=== PATIENT | male | born 1985 | race African-American/Black ===

== ENCOUNTER 2017-11-11 16:48 | Emergency (ER) | payer OTHER, SELFPAY ==
--- NOTE | 2017-11-11 19:04 | ER ---
Nurse's Notes [facility] Name: Holden Morris Age: 32 yrs Sex: Male : 1985 Arrival Date: 11/11/2017 Time: 16:52 Bed Waiting Private MD: Saad Dove T Diagnosis: Presentation: 11/11 17:07 Presenting complaint: Patient states: Migraine headache and chest pain for 1 week. aj Transition of care: patient was not received from another setting of care. Onset of symptoms was November 06, 2017. Care prior to arrival: None. 17:07 Method Of Arrival: Ambulatory 17:07 Acuity: STONE 3 aj Triage Assessment: 17:08 General: Appears in no apparent distress. comfortable, Behavior is calm, cooperative, aj appropriate for age. Pain: Complains of pain in face and chest. Neuro: Level of Consciousness is awake, alert, obeys commands, Oriented to person, place, time, situation, Appropriate for age. Neuro: Reports headache. Cardiovascular: Reports chest pain, Capillary refill < 3 seconds in bilateral fingers Patient's skin is warm and dry. Respiratory: Airway is patent Respiratory effort is even, unlabored, Respiratory pattern is regular, symmetrical. Derm: Skin is intact, is healthy with good turgor, Skin is pink, warm \T\ dry. normal. Historical: - Allergies: 17:08 No Known Allergies; aj - Home Meds: 17:08 Valium Oral [Active]; aj - PMHx: 17:08 Anxiety; Migraines; aj - PSHx: 17:08 laryngoscopy; aj - Immunization history:: Adult Immunizations up to date. - Social history:: Smoking status: Patient/guardian denies using tobacco. Assessment: 19:02 Reassessment: Patient eloped from [employer] telling registration he was leaving because of aj the wait time. Vital Signs: 17:08 BP 170 / 91; Pulse 86; Resp 16; Temp 97.7; Pulse Ox 98% on R/A; Weight 97.52 kg; Height aj 5 ft. 9 in. (175.26 cm); Pain 9/10; 17:08 Body Mass Index 31.75 (97.52 kg, 175.26 cm) ED Course: 16:52 Patient arrived in ED. rg4 16:52 Saad Dove MD is Private Physician. rg4 17:08 Triage completed. lala 17:08 Arm band placed on left wrist. Patient placed in waiting room, Patient notified of wait aj time. EKG completed in triage. Results shown to MD. 19:03 Aidan Carranza MD is Attending Physician. lala Administered Medications: No medications were administered Outcome: 19:02 Eloped from waiting room, before seeing physician Time discovered patient gone: November 11 2018 at 19:03 19:03 Patient left the ED. aj Signatures: Mia Sandoval, RN RN Desire Lima rg4
[2017-11-11 19:14] VITALS: BP 170/91; TEMP 97.7; O2SAT 98
--- NOTE | 2017-11-13 15:26 | EKG ---
Test Date: 2017-11-11 Test Time: 17:14:17 Waist Pleater: PIOTR MEASUREMENT RESULTS: Intervals: Rate: 89 MA: 136 QRSD: 82 QT: 348 QTc: 423 [place]: P: 59 MA: 136 QRS: 39 T: 26 INTERPRETIVE STATEMENTS: Normal sinus rhythm Normal ECG Compared to ECG 08/03/2016 17:22:37 ST (T wave) deviation no longer present Electronically Signed On 11-13-17 15:24:46 CDT by Christopher Pacheco
== END 2017-11-11 19:03 | disposition left against medical advice (07) ==
LOC: ER 16:48
DX: Z53.21 Procedure and treatment not carried out due to patient leaving prior to being seen by health care provider (principal)
CPT/HCPCS: 93005; 99281

== ENCOUNTER 2018-01-05 17:42 | Emergency (ER) | payer SELFPAY ==
--- NOTE | 2018-01-05 18:43 | EKG ---
Test Date: 2018-01-05 Test Time: 17:52:47 Advertising Display Rotator: XANDER MEASUREMENT RESULTS: Intervals: Rate: 74 MI: 138 QRSD: 80 QT: 348 QTc: 386 [place]: P: 40 MI: 138 QRS: 13 T: 13 INTERPRETIVE STATEMENTS: Normal sinus rhythm Normal ECG Compared to ECG 11/11/2017 17:14:17 No significant changes Electronically Signed On 01-05-18 18:42:48 CDT by Abner Howard
[2018-01-05] MEDS ORDERED: KETOROLAC 30 MG/ML INJ ONE (19:55)
[2018-01-05 20:03] LABS: Absolute Lymphocytes (CBC) 3.1 K/uL (0.7-4.9); Absolute Monocytes 0.6 K/uL (0.1-1.3); Absolute Neutrophil 4.3 K/uL (1.8-8.0); Basophils % 0.4 % (0-1.3); Hematocrit 41.5 % (39.6-49.0); Lymphocytes % 37.8 % (15.3-44.8); MCH 23.9 pg (27.0-35.0); MCV 74.4 fL (80-100); MPV 8.8 fL (7.6-11.3); Monocytes % 7.7 % (3.3-12.3); RBC Red Blood Cell Count 5.57 M/uL (4.33-5.43)
--- NOTE | 2018-01-05 20:09 | RAD REPORT ---
EXAM DESCRIPTION: RAD - Chest Single View - 01/05/2018 6:55 pm CLINICAL HISTORY: Chest pain COMPARISON: September 2016 TECHNIQUE: AP portable chest image was obtained 1842 hours . FINDINGS: Lungs are clear. Heart and vasculature are normal. No measurable pleural effusion and no p neumothorax. No gross bony abnormality seen. No acute aortic findings suspected. IMPRESSION: No acute cardiopulmonary process. No significant interval change.
[2018-01-05 20:25] LABS: ALT/SGPT 47 U/L (12-78); AST/SGOT 31 U/L (15-37); Albumin 3.8 g/dL (3.4-5.0); Alkaline Phosphatase 78 U/L (45-117); BUN Blood Urea Nitrogen 13 mg/dL (7-18); Bicarbonate 29 mmol/L (21-32); Bilirubin Direct < 0.1 mg/dL (0-0.2); Bilirubin Total 0.2 mg/dL (0.2-1.0); Glucose Level 81 mg/dL (74-106); Magnesium 2.1 mg/dL (1.8-2.4); NT PRO-BNP 8 pg/mL (<125); Protein, Total 8.4 g/dL (6.4-8.2); Sodium Level 139 mmol/L (136-145)
[2018-01-05] MEDS ORDERED: FENTANYL CITR 100 MCG/2 ML ONE (20:27)
--- NOTE | 2018-01-05 20:37 | ER ---
Nurse's Notes [facility] Name: Holden Morris Age: 33 yrs Sex: Male : 1985 Arrival Date: 01/05/2018 Time: 17:45 Bed 24 Private MD: Saad Dove T Diagnosis: Other chest pain Presentation: 01/05 17:45 Presenting complaint: Patient states: CP and numbness that started this morning while sg driving to work, reports this happened before and was hospitalized for it. Transition of care: patient was not received from another setting of care. Onset of symptoms was January 05, 2018. Risk Assessment: Do you want to hurt yourself or someone else? Patient reports no desire to harm self or others. Initial Sepsis Screen: Does the patient meet any 2 criteria? No. Patient's initial sepsis screen is negative. Does the patient have a suspected source of infection? No. Patient's initial sepsis screen is negative. Care prior to arrival: None. 17:45 Method Of Arrival: Ambulatory sg 17:45 Acuity: STONE 3 sg Historical: - Allergies: 17:47 No Known Allergies; sg - Home Meds: 17:47 Valium Oral [Active]; sg - PMHx: 17:47 Anxiety; Migraines; sg - PSHx: 17:47 laryngoscopy; sg - Immunization history:: Adult Immunizations up to date. - Social history:: Smoking status: Patient/guardian denies using tobacco. - Ebola Screening: : Patient negative for fever greater than or equal to 101.5 degrees Fahrenheit, and additional compatible Ebola Virus Disease symptoms Patient denies exposure to infectious person Patient denies travel to an Ebola-affected area in the 21 days before illness onset No symptoms or risks identified at this time. Screenin:24 Abuse screen: Denies threats or abuse. Nutritional screening: No deficits noted. mb3 Tuberculosis screening: No symptoms or risk factors identified. Fall Risk None identified. Assessment: 18:22 General: Appears in no apparent distress. comfortable, Behavior is calm, cooperative, mb3 appropriate for age. Pain: Complains of pain in chest Pain does not radiate. Pain currently is 8 out of 10 on a pain scale. at worst was 10 out of 10 on a pain scale. Pain began gradually, 4 hours ago. Neuro: No deficits noted. Cardiovascular: Reports chest pain, Denies nausea, Heart tones present Capillary refill < 3 seconds Patient's skin is warm and dry. Pulses are all present. Rhythm is sinus rhythm. Respiratory: Airway is patent Respiratory effort is even, unlabored, Respiratory pattern is regular, symmetrical, Breath sounds are clear bilaterally. GI: No deficits noted. No signs and/or symptoms were reported involving the gastrointestinal system. Vital Signs: 17:46 Pulse 79; Resp 17 S; Temp 98.4; Pulse Ox 99% on R/A; Weight 111.13 kg; Height 5 ft. 8 sg in. (172.72 cm); Pain 6/10; 17:48 BP 158 / 90; sg 19:00 BP 129 / 84; Pulse 71; Resp 20; Pulse Ox 94% on R/A; mb3 20:56 BP 128 / 93; Pulse 66; Resp 18; Pulse Ox 96% on R/A; mb3 17:46 Body Mass Index 37.25 (111.13 kg, 172.72 cm) ED Course: 17:45 Patient arrived in ED. sg 17:45 Saad Dove MD is Private Physician. sg 17:46 Triage completed. sg 17:48 Angel Good, RN is Primary Nurse. mb3 17:48 Arm band placed on. sg 18:11 Lars Elena PA is PHCP. jr8 18:11 Jose Ramon Tinajero MD is Attending Physician. jr8 18:21 Inserted saline lock: 22 gauge in right forearm, using aseptic technique. Blood mb3 collected. 18:22 Patient maintains SpO2 saturation greater than 95% on room air. mb3 18:25 Patient has correct armband on for positive identification. Placed in gown. Bed in low mb3 position. Call light in reach. Side rails up X 1. supply assistant on. Pulse ox on. NIBP on. 18:25 EKG done, by process maintenance technician. reviewed by Jose Ramon Tinajero MD. sm3 18:48 XRAY Chest (1 view) Sent. mb3 18:51 X-ray completed. Portable x-ray completed in exam room. Patient tolerated procedure kp1 well. 18:53 XRAY Chest (1 view) In Process Unspecified. EDMS 20:37 Saad Dove MD is Referral Physician. jr8 20:51 No provider procedures requiring assistance completed. IV discontinued, intact, mb3 bleeding controlled, No redness/swelling at site. Pressure dressing applied. Administered Medications: 19:54 Drug: TORadol 30 mg Route: IVP; Site: right forearm; mb3 20:43 Follow up: Response: No adverse reaction mb3 20:26 Drug: fentaNYL (PF) 50 mcg Route: IVP; Site: right forearm; mb3 20:43 Follow up: Response: No adverse reaction mb3 Outcome: 20:37 Discharge ordered by . terry 20:52 Discharged to home ambulatory, with family. mb3 20:52 Condition: stable 20:52 Discharge instructions given to patient, family, Instructed on discharge instructions, follow up and referral plans. medication usage, Demonstrated understanding of instructions, follow-up care, medications, Prescriptions given X 1. 20:55 Patient left the ED. mb3 Signatures: Dispatcher [employer] EDMS Holden Segovia, RN RN Lars Arango PA PA jr8 Ginger Plata kp1 Angel Good RN RN mb3 Chapis Cintron 3
--- NOTE | 2018-01-05 20:38 | EDPHYS ---
Physician Documentation [facility] Name: Holden Morris Age: 33 yrs Sex: Male : 1985 Arrival Date: 01/05/2018 Time: 17:45 Bed 24 Private MD: Saad Dove T ED Physician Jose Ramon Tinajero HPI: 01/05 19:46 This 33 yrs old Black Male presents to ER via Ambulatory with complaints of Chest Pain, jr8 Numbness Of Arm. 19:46 The patient or guardian reports chest pain that is located primarily in the anterior jr8 chest wall, left. The pain radiates to the left arm. Associated signs and symptoms: The patient has no apparent associated signs or symptoms. The chest pain is described as sharp, stabbing. Duration: The patient or guardian reports multiple episodes, that are intermittent, that wax and wane. Modifying factors: The symptoms are alleviated by nothing. the symptoms are aggravated by breathing, deep breath, movement, palpation of area. Severity of pain: At its worst the pain was moderate in the emergency department the pain is unchanged. The patient has not experienced similar symptoms in the past. The patient has not recently seen a physician. Historical: - Allergies: 17:47 No Known Allergies; sg - Home Meds: 17:47 Valium Oral [Active]; sg - PMHx: 17:47 Anxiety; Migraines; sg - PSHx: 17:47 laryngoscopy; sg - Immunization history:: Adult Immunizations up to date. - Social history:: Smoking status: Patient/guardian denies using tobacco. - Ebola Screening: : Patient negative for fever greater than or equal to 101.5 degrees Fahrenheit, and additional compatible Ebola Virus Disease symptoms Patient denies exposure to infectious person Patient denies travel to an Ebola-affected area in the 21 days before illness onset No symptoms or risks identified at this time. ROS: 19:46 Eyes: Negative for injury, pain, redness, and discharge, ENT: Negative for injury, jr8 pain, and discharge, Neck: Negative for injury, pain, and swelling, Respiratory: Negative for shortness of breath, cough, wheezing, and pleuritic chest pain, Abdomen/GI: Negative for abdominal pain, nausea, vomiting, diarrhea, and constipation, Back: Negative for injury and pain, MS/Extremity: Negative for injury and deformity, Skin: Negative for injury, rash, and discoloration, Neuro: Negative for headache, weakness, numbness, tingling, and seizure. 19:46 Cardiovascular: Positive for chest pain, Negative for edema, orthopnea, palpitations, paroxysmal nocturnal dyspnea. Exam: 19:46 Eyes: Pupils equal round and reactive to light, extra-ocular motions intact. Lids and jr8 lashes normal. Conjunctiva and sclera are non-icteric and not injected. Cornea within normal limits. Periorbital areas with no swelling, redness, or edema. ENT: Nares patent. No nasal discharge, no septal abnormalities noted. Tympanic membranes are normal and external auditory canals are clear. Oropharynx with no redness, swelling, or masses, exudates, or evidence of obstruction, uvula midline. Mucous membranes moist. Neck: Trachea midline, no thyromegaly or masses palpated, and no cervical lymphadenopathy. Supple, full range of motion without nuchal rigidity, or vertebral point tenderness. No Meningismus. Cardiovascular: Regular rate and rhythm with a normal S1 and S2. No gallops, murmurs, or rubs. Normal PMI, no JVD. No pulse deficits. Respiratory: Lungs have equal breath sounds bilaterally, clear to auscultation and percussion. No rales, rhonchi or wheezes noted. No increased work of breathing, no retractions or nasal flaring. Abdomen/GI: Soft, non-tender, with normal bowel sounds. No distension or tympany. No guarding or rebound. No evidence of tenderness throughout. Back: No spinal tenderness. No costovertebral tenderness. Full range of motion. Skin: Warm, dry with normal turgor. Normal color with no rashes, no lesions, and no evidence of cellulitis. MS/ Extremity: Pulses equal, no cyanosis. Neurovascular intact. Full, normal range of motion. Neuro: Awake and alert, GCS 15, oriented to person, place, time, and situation. Cranial nerves II-XII grossly intact. Motor strength 5/5 in all extremities. Sensory grossly intact. Cerebellar exam normal. Normal gait. 19:46 Chest/axilla: Inspection: normal, Palpation: tenderness, that is moderate, of the left clavicle, anterior aspect of left upper chest and mid-sternal area. Vital Signs: 17:46 Pulse 79; Resp 17 S; Temp 98.4; Pulse Ox 99% on R/A; Weight 111.13 kg; Height 5 ft. 8 sg in. (172.72 cm); Pain 6/10; 17:48 BP 158 / 90; sg 19:00 BP 129 / 84; Pulse 71; Resp 20; Pulse Ox 94% on R/A; mb3 20:56 BP 128 / 93; Pulse 66; Resp 18; Pulse Ox 96% on R/A; mb3 17:46 Body Mass Index 37.25 (111.13 kg, 172.72 cm) sg MDM: 18:11 Patient medically screened. 8 20:30 Data reviewed: vital signs, nurses notes, lab test result(s), EKG, radiologic studies, jr8 plain films, and as a result, I will discharge patient. Data interpreted: Pulse oximetry: on room air is 99 %. Interpretation: normal. Counseling: I had a detailed discussion with the patient and/or guardian regarding: the historical points, exam findings, and any diagnostic results supporting the discharge/admit diagnosis, lab results, radiology results, the need for outpatient follow up, a family practitioner, to return to the emergency department if symptoms worsen or persist or if there are any questions or concerns that arise at home. ED course: No acute or concerning findings in labs, imaging, or EKG. Pain reproducible. Likely strain. Instructions given to f/u with PCP . 01/05 18:26 Order name: Basic Metabolic Panel; Complete Time: 20:30 01/05 18:26 Order name: CBC with Diff; Complete Time: 20:30 01/05 18:26 Order name: LFT's; Complete Time: 20:30 01/05 18:26 Order name: Magnesium; Complete Time: 20:30 01/05 18:26 Order name: NT PRO-BNP; Complete Time: 20:30 01/05 18:26 Order name: PT-INR; Complete Time: 20:47 01/05 18:26 Order name: Troponin (emerg Dept Use Only); Complete Time: 20:30 01/05 18:26 Order name: XRAY Chest (1 view); Complete Time: 20:09 01/05 18:26 Order name: EKG; Complete Time: 18:26 01/05 18:26 Order name: Cardiac monitoring; Complete Time: 18:48 01/05 18:26 Order name: EKG - Nurse/Tech; Complete Time: 18:48 01/05 18:26 Order name: IV Saline Lock; Complete Time: 18:48 01/05 18:26 Order name: Labs collected and sent; Complete Time: 18:48 01/05 18:26 Order name: O2 Per Protocol; Complete Time: 18:48 01/05 18:26 Order name: O2 Sat Monitoring; Complete Time: 18:49 Administered Medications: 19:54 Drug: TORadol 30 mg Route: IVP; Site: right forearm; mb3 20:43 Follow up: Response: No adverse reaction mb3 20:26 Drug: fentaNYL (PF) 50 mcg Route: IVP; Site: right forearm; mb3 20:43 Follow up: Response: No adverse reaction mb3 Disposition: 01/06 07:11 Co-signature as Attending Physician, Jose Ramon Tinajero MD. rn Disposition: 01/05/18 20:37 Discharged to Home. Impression: Other chest pain. - Condition is Stable. - Discharge Instructions: Chest Wall Pain. - Prescriptions for Cyclobenzaprine 10 mg Oral Tablet - take 1 tablet by ORAL route every 8 hours As needed; 30 tablet. - Medication Reconciliation Form, Thank You Letter, Antibiotic Education, Prescription Opioid Use, Work release form form. - Follow up: Saad Dove MD; When: 2 - 3 days; Reason: Recheck today's complaints, Continuance of care, Re-evaluation by your physician. - Problem is new. - Symptoms have improved. Signatures: Dispatcher [employer] EDHolden Turcios RN RN Jose Ramon Wright MD MD rn Roszak, Josh, PA PA jr8 Angel Good, RN RN mb3 Corrections: (The following items were deleted from the chart) 01/05 20:55 20:37 01/05/2018 20:37 Discharged to Home. Impression: Other chest pain. Condition is mb3 Stable. Forms are Medication Reconciliation Form, Thank You Letter, Antibiotic Education, Prescription Opioid Use. Follow up: Saad Dove; When: 2 - 3 days; Reason: Recheck today's complaints, Continuance of care, Re-evaluation by your physician. Problem is new. Symptoms have improved. jr8
[2018-01-05 20:40] LABS: Protime INR 1.08
[2018-01-05 21:00] VITALS: BP 158/90; TEMP 98.4; O2SAT 99
== END 2018-01-05 20:55 | disposition home or self-care (01) ==
LOC: ER 17:42
DX: R07.89 Other chest pain (principal)
CPT/HCPCS: 36415; 71045; 80048; 80076; 83735; 83880; 84484; 85025; 85610; 93005; 96374; 96375; 99285; J3010

== ENCOUNTER 2018-01-14 18:55 | Emergency (ER) | payer SELFPAY ==
[2018-01-14] MEDS ORDERED: ONDANSETRON 4 MG/2 ML VIAL ONE (19:17)
[2018-01-14] MEDS ORDERED: MORPHINE 4 MG/ML SYR ONE (19:17)
[2018-01-14] MEDS ORDERED: FENTANYL CITR 100 MCG/2 ML ONE (19:49)
[2018-01-14] MEDS ORDERED: NA CHLORIDE 0.9% 1,000 ML ONE (19:49)
[2018-01-14] MEDS ORDERED: TETANUS & DIPHTHERIA TOX,ADULT 0.5 ML VIAL ONE ×2 (19:49→19:50)
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
[2018-01-14] MEDS ORDERED: TETRACAINE HCL 0.5% 2ML OPTH ONE (20:21)
[2018-01-14] MEDS ORDERED: FLUORESCEIN SODIUM 0.6 MG/WRAP ONE (20:21)
[2018-01-14 20:23] LABS: Absolute Lymphocytes (CBC) 2.4 K/uL (0.7-4.9); Absolute Monocytes 0.9 K/uL (0.1-1.3); Absolute Neutrophil 7.4 K/uL (1.8-8.0); Basophils % 0.4 % (0-1.3); Eosinophils % 1.3 % (0-4.4); Lymphocytes % 21.9 % (15.3-44.8); MCV 74.3 fL (80-100); MPV 8.1 fL (7.6-11.3); Monocytes % 7.9 % (3.3-12.3); RBC Red Blood Cell Count 5.25 M/uL (4.33-5.43)
[2018-01-14 20:28] LABS: Protime INR 1.01
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
[2018-01-14 20:33] LABS: BUN Blood Urea Nitrogen 19 mg/dL (7-18); Bicarbonate 27 mmol/L (21-32); Glucose Level 101 mg/dL (74-106); Potassium 3.9 mmol/L (3.5-5.1); Sodium Level 140 mmol/L (136-145)
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
[2018-01-14] MEDS ORDERED: CYCLOBENZAPRINE 10 MG TAB ONE (21:51)
[2018-01-14] MEDS ORDERED: HYDROCODONE/APAP 10/325 TAB ONE (21:52)
[2018-01-14] MEDS ORDERED: KETOROLAC 30 MG/ML INJ ONE (21:52)
[2018-01-14 23:06] VITALS: TEMP 98.3
[2018-01-14 23:08] VITALS: O2SAT 100
[2018-01-14 23:11] VITALS: BP 144/79
--- NOTE | 2018-01-15 09:30 | EKG ---
Test Date: 2018-01-14 Test Time: 20:57:34 Agency Appointments Supervisor: ANKITA MEASUREMENT RESULTS: Intervals: Rate: 101 ME: 140 QRSD: 80 QT: 326 QTc: 422 [place]: P: 49 ME: 140 QRS: 8 T: 15 INTERPRETIVE STATEMENTS: Sinus tachycardia Otherwise normal ECG Compared to ECG 01/05/2018 17:52:47 Sinus rhythm no longer present Electronically Signed On 01-15-18 09:27:30 CDT by Christopher Pacheco
== END 2018-01-14 23:02 | disposition home or self-care (01) ==
LOC: ER 18:55
DX: S05.02XA Injury of conjunctiva and corneal abrasion without foreign body, left eye, initial encounter (principal); M25.512 Pain in left shoulder; V49.40XA Driver injured in collision with unspecified motor vehicles in traffic accident, initial encounter; Z88.0 Allergy status to penicillin
CPT/HCPCS: 36415; 70450; 71045; 71260; 72125; 72170; 74177; 80048; 85025; 85610; 85730; 86850; 86900; 86901; 90714; 93005; 96374; 96375; 99285; J2405; J3010; J7030; Q9967

== ENCOUNTER 2018-08-24 11:00 | Emergency (ER) | payer SELFPAY ==
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
--- NOTE | 2018-08-24 12:52 | ER ---
Nurse's Notes [facility] Name: Holden Morris Age: 33 yrs Sex: Male : 1985 Arrival Date: 08/24/2018 Time: 11:02 Bed 13 Private MD: Saad Dove T Diagnosis: Other chest pain-Chest Wall pain Presentation: 08/24 11:06 Presenting complaint: Patient states: pt c/o left sided chest pain that started last iw night, feels like squeezing and pins and needles, also feels like his left hand has intermittent swelling and has pain to his whole left arm when he tries to raise it up, denies injury. Transition of care: patient was not received from another setting of care. Onset of symptoms was August 23, 2018. Risk Assessment: Do you want to hurt yourself or someone else? Patient reports no desire to harm self or others. Initial Sepsis Screen: Does the patient meet any 2 criteria? No. Patient's initial sepsis screen is negative. Does the patient have a suspected source of infection? No. Patient's initial sepsis screen is negative. Care prior to arrival: None. 11:06 Method Of Arrival: Ambulatory iw 11:06 Acuity: STONE 3 iw Triage Assessment: 11:34 General: Appears in no apparent distress. Behavior is calm, cooperative. pc1 Cardiovascular: Denies diaphoresis, fatigue, lightheadedness, nausea, palpitations, shortness of breath, vomiting, Capillary refill < 3 seconds Patient's skin is warm and dry. Historical: - Allergies: 11:09 PENICILLINS; iw - Home Meds: 11:09 None [Active]; iw - PMHx: 11:09 Anxiety; GERD; Migraines; iw - PSHx: 11:09 laryngoscopy; iw - Immunization history:: Adult Immunizations not up to date. - Social history:: Smoking status: Patient/guardian denies using tobacco. - Ebola Screening: : Patient negative for fever greater than or equal to 101.5 degrees Fahrenheit, and additional compatible Ebola Virus Disease symptoms Patient denies exposure to infectious person Patient denies travel to an Ebola-affected area in the 21 days before illness onset No symptoms or risks identified at this time. Screenin:36 Abuse screen: Denies threats or abuse. Denies injuries from another. Nutritional pc1 screening: No deficits noted. Tuberculosis screening: No symptoms or risk factors identified. Fall Risk None identified. Assessment: 11:30 Pain: Pain radiates to left arm pt states his left side swells off and on for a long ls4 time now and no doctors can figure out why Pain began years ago. 11:35 General: Appears in no apparent distress. Neuro: No deficits noted. Cardiovascular: pc1 Reports chest pain, Denies diaphoresis, fatigue, lightheadedness, nausea, palpitations, shortness of breath, syncope, vomiting. Respiratory: Airway is patent Respiratory effort is even, unlabored. GI: No deficits noted. : No deficits noted. 12:30 Reassessment: Patient appears in no apparent distress at this time. Patient and/or ls4 family updated on plan of care and expected duration. Pain level reassessed. Patient is alert, oriented x 3, equal unlabored respirations, skin warm/dry/pink. Vital Signs: 11:09 BP 148 / 81; Pulse 88; Resp 16; Temp 98.7; Pulse Ox 98% on R/A; Weight 97.52 kg; Height iw 5 ft. 7 in. (170.18 cm); Pain 9/10; 11:09 Body Mass Index 33.67 (97.52 kg, 170.18 cm) iw ED Course: 11:02 Patient arrived in ED. mr 11:03 Saad Dove MD is Private Physician. mr 11:08 Triage completed. iw 11:09 Arm band placed on. iw 11:27 Lars Elena PA is PHCP. jr8 11:27 Ko Guillaume MD is Attending Physician. jr8 11:28 Fley Villegas, NICOL is Primary Nurse. ls4 11:28 EKG done, by health information technologist. reviewed by Ko Guillaume MD. at1 11:36 Patient has correct armband on for positive identification. Bed in low position. Call pc1 light in reach. Side rails up X 1. environmental monitoring specialist on. Pulse ox on. NIBP on. 11:37 No provider procedures requiring assistance completed. Patient maintains SpO2 pc1 saturation greater than 95% on room air. 12:14 Influenza Screen (a \T\ B) Sent. 5 12:14 Flu and/or RSV swab sent to lab. 5 12:51 Saad Dove MD is Referral Physician. jr8 13:24 Patient did not have IV access during this emergency room visit. ls4 13:26 Chest Single View XRAY Sent. ls4 Administered Medications: 12:52 CANCELLED (Physician Discretion): TORadol 30 mg IVP once jr8 12:58 Drug: TORadol 60 mg Route: IM; Site: right deltoid; ls4 13:20 Follow up: Response: No adverse reaction; Marked relief of symptoms ls4 Outcome: 12:51 Discharge ordered by . jr8 13:22 Patient left the ED. ls4 13:24 Discharged to home ambulatory, with family. ls4 13:24 Condition: good 13:24 Discharge instructions given to patient, family, Instructed on discharge instructions, follow up and referral plans. medication usage, Demonstrated understanding of instructions, follow-up care, medications, Prescriptions given X 1. Signatures: Anika Han Irene, RN RN Lars Beckwith PA PA jr8 Mia Mares, xray tech EKG Tat1 Valeria Oliver 5 Fely Villegas RN RN ls4 Anthony John pc1
--- NOTE | 2018-08-24 12:53 | EDPHYS ---
Physician Documentation [facility] Name: Holden Morris Age: 33 yrs Sex: Male : 1985 Arrival Date: 08/24/2018 Time: 11:02 Bed 13 Private MD: Saad Dove T ED Physician Ko Guillaume HPI: 08/24 11:40 This 33 yrs old Black Male presents to ER via Ambulatory with complaints of Chest Pain. jr8 11:41 The patient or guardian reports chest pain that is located primarily in the anterior jr8 chest wall, left. The pain does not radiate. Associated signs and symptoms: The patient has no apparent associated signs or symptoms. The chest pain is described as a pressure, squeezing. Duration: The patient or guardian reports a single episode, that is still ongoing, and unchanged. Modifying factors: The symptoms are alleviated by nothing. the symptoms are aggravated by cough, movement. Severity of pain: At its worst the pain was moderate. The patient has experienced similar episodes in the past, a few times. The patient has not recently seen a physician. Chest pain started last night. Recent cough with intermittent fevers. Historical: - Allergies: 11:09 PENICILLINS; iw - Home Meds: 11:09 None [Active]; iw - PMHx: 11:09 Anxiety; GERD; Migraines; iw - PSHx: 11:09 laryngoscopy; iw - Immunization history:: Adult Immunizations not up to date. - Social history:: Smoking status: Patient/guardian denies using tobacco. - Ebola Screening: : Patient negative for fever greater than or equal to 101.5 degrees Fahrenheit, and additional compatible Ebola Virus Disease symptoms Patient denies exposure to infectious person Patient denies travel to an Ebola-affected area in the 21 days before illness onset No symptoms or risks identified at this time. ROS: 11:41 Eyes: Negative for injury, pain, redness, and discharge, ENT: Negative for injury, jr8 pain, and discharge, Neck: Negative for injury, pain, and swelling, Abdomen/GI: Negative for abdominal pain, nausea, vomiting, diarrhea, and constipation, Back: Negative for injury and pain, MS/Extremity: Negative for injury and deformity, Skin: Negative for injury, rash, and discoloration, Neuro: Negative for headache, weakness, numbness, tingling, and seizure. 11:41 Cardiovascular: Positive for chest pain, with cough, with movement. 11:41 Respiratory: Positive for cough, Negative for dyspnea on exertion, shortness of breath, sputum production, wheezing. Exam: 11:41 Eyes: Pupils equal round and reactive to light, extra-ocular motions intact. Lids and jr8 lashes normal. Conjunctiva and sclera are non-icteric and not injected. Cornea within normal limits. Periorbital areas with no swelling, redness, or edema. ENT: Nares patent. No nasal discharge, no septal abnormalities noted. Tympanic membranes are normal and external auditory canals are clear. Oropharynx with no redness, swelling, or masses, exudates, or evidence of obstruction, uvula midline. Mucous membranes moist. Neck: Trachea midline, no thyromegaly or masses palpated, and no cervical lymphadenopathy. Supple, full range of motion without nuchal rigidity, or vertebral point tenderness. No Meningismus. Cardiovascular: Regular rate and rhythm with a normal S1 and S2. No gallops, murmurs, or rubs. Normal PMI, no JVD. No pulse deficits. Respiratory: Lungs have equal breath sounds bilaterally, clear to auscultation and percussion. No rales, rhonchi or wheezes noted. No increased work of breathing, no retractions or nasal flaring. Abdomen/GI: Soft, non-tender, with normal bowel sounds. No distension or tympany. No guarding or rebound. No evidence of tenderness throughout. Back: No spinal tenderness. No costovertebral tenderness. Full range of motion. Skin: Warm, dry with normal turgor. Normal color with no rashes, no lesions, and no evidence of cellulitis. MS/ Extremity: Pulses equal, no cyanosis. Neurovascular intact. Full, normal range of motion. Neuro: Awake and alert, GCS 15, oriented to person, place, time, and situation. Cranial nerves II-XII grossly intact. Motor strength 5/5 in all extremities. Sensory grossly intact. Cerebellar exam normal. Normal gait. 11:41 Chest/axilla: Inspection: normal, Palpation: tenderness, that is moderate, of the anterior aspect of left upper chest, that totally reproduces the patient's complaints, Axilla: are normal. Vital Signs: 11:09 BP 148 / 81; Pulse 88; Resp 16; Temp 98.7; Pulse Ox 98% on R/A; Weight 97.52 kg; Height iw 5 ft. 7 in. (170.18 cm); Pain 9/10; 11:09 Body Mass Index 33.67 (97.52 kg, 170.18 cm) iw MDM: 11:27 Patient medically screened. 8 12:50 Differential diagnosis: abnormal EKG, acute myocardial infarction, acute pericarditis, jr8 anxiety, chest wall pain, cholecystitis, Cholelithiasis costochondritis, esophagitis, gastritis, pleurisy, pneumonia, pneumothorax, pulmonary embolus, thoracic aortic disection, unstable angina. Data reviewed: vital signs, nurses notes, lab test result(s), EKG, radiologic studies, plain films, and as a result, I will discharge patient. Data interpreted: Pulse oximetry: on room air is 98 %. Interpretation: normal. Counseling: I had a detailed discussion with the patient and/or guardian regarding: the historical points, exam findings, and any diagnostic results supporting the discharge/admit diagnosis, lab results, radiology results, the need for further work-up and treatment in the hospital. 08/24 11:44 Order name: Influenza Screen (a \T\ B); Complete Time: 12:39 jr8 08/24 11:44 Order name: Chest Single View XRAY jr8 08/24 11:44 Order name: EKG; Complete Time: 11:45 jr8 08/24 12:32 Order name: RAD; Complete Time: 12:39 EDMS 08/24 11:44 Order name: EKG - Nurse/Tech; Complete Time: 12:29 Administered Medications: 12:52 CANCELLED (Physician Discretion): TORadol 30 mg IVP once jr8 12:58 Drug: TORadol 60 mg Route: IM; Site: right deltoid; ls4 13:20 Follow up: Response: No adverse reaction; Marked relief of symptoms ls4 Disposition: 08/24/18 12:51 Discharged to Home. Impression: Other chest pain - Chest Wall pain. - Condition is Stable. - Discharge Instructions: Chest Wall Pain. - Prescriptions for Ibuprofen 800 mg Oral Tablet - take 1 tablet by ORAL route every 12 hours As needed take with food; 20 tablet. - Medication Reconciliation Form, Thank You Letter, Antibiotic Education, Prescription Opioid Use form. - Family Work Release (08/24/18 13:32). eb - Follow up: Saad Dove MD; When: 2 - 3 days; Reason: Recheck today's complaints, Continuance of care, Re-evaluation by your physician. - Problem is new. - Symptoms have improved. Signatures: Dispatcher [employer] Keshia Seaman, RN RN iw Lars Elena PA PA jr8 Fely Villegas RN RN ls4 Monisha Magallanes eb Corrections: (The following items were deleted from the chart) 12:52 12:50 TORadol 30 mg IVP once ordered. jr8 jr8 13:22 12:51 08/24/2018 12:51 Discharged to Home. Impression: Other chest pain - Chest Wall ls4 pain. Condition is Stable. Forms are Medication Reconciliation Form, Thank You Letter, Antibiotic Education, Prescription Opioid Use. Follow up: Saad Dove; When: 2 - 3 days; Reason: Recheck today's complaints, Continuance of care, Re-evaluation by your physician. Problem is new. Symptoms have improved. jr8
[2018-08-24] MEDS ORDERED: KETOROLAC 30 MG/ML INJ ONE (13:04)
[2018-08-24 13:27] VITALS: BP 148/81; TEMP 98.7; O2SAT 98
--- NOTE | 2018-08-24 21:38 | EKG ---
Test Date: 2018-08-24 Test Time: 11:24:13 Zipper Lining Folder: PIOTR MEASUREMENT RESULTS: Intervals: Rate: 71 OK: 136 QRSD: 80 QT: 344 QTc: 373 [place]: P: 69 OK: 136 QRS: 62 T: 50 INTERPRETIVE STATEMENTS: Normal sinus rhythm Normal ECG Compared to ECG 01/14/2018 20:57:34 Sinus tachycardia no longer present Electronically Signed On 08-24-18 21:36:22 COMPUTER REPAIR INSTRUCTOR by Abner Howard
== END 2018-08-24 13:22 | disposition home or self-care (01) ==
LOC: ER 11:00
DX: R07.89 Other chest pain (principal); Z88.0 Allergy status to penicillin
CPT/HCPCS: 71045; 87804; 93005; 96372; 99285

== ENCOUNTER 2019-03-17 22:59 | Emergency (ER) | payer SELFPAY ==
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
[2019-03-18 01:29] VITALS: TEMP 98.6
[2019-03-18 01:31] VITALS: BP 141/75; O2SAT 98
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
--- NOTE | 2019-03-19 11:36 | EKG ---
Test Date: 2019-03-17 Test Time: 23:14:59 Water Main Inspector: ANKITA MEASUREMENT RESULTS: Intervals: Rate: 85 MO: 140 QRSD: 78 QT: 350 QTc: 416 [place]: P: 46 MO: 140 QRS: 10 T: 22 INTERPRETIVE STATEMENTS: Normal sinus rhythm Normal ECG Compared to ECG 08/24/2018 11:24:13 No significant changes Electronically Signed On 03-19-19 11:31:36 CDT by Christopher Pacheco
== END 2019-03-18 00:25 | disposition home or self-care (01) ==
LOC: ER 22:59
DX: R07.9 Chest pain, unspecified (principal); Z88.0 Allergy status to penicillin
CPT/HCPCS: 71046; 93005; 99284

== ENCOUNTER 2019-04-06 10:05 | Emergency (ER) | payer SELFPAY ==
[2019-04-06 10:50] LABS: Absolute Lymphocytes (CBC) 2.4 K/uL (0.7-4.9); Basophils % 0.6 % (0-1.3); Hematocrit 35.2 % (39.6-49.0); Lymphocytes % 35.9 % (15.3-44.8); MPV 8.1 fL (7.6-11.3); RBC Red Blood Cell Count 4.71 M/uL (4.33-5.43)
[2019-04-06 10:51] LABS: Protime INR 1.09
[2019-04-06] MEDS ORDERED: ASPIRIN 81 MG CHEWABLE TABLET ONE (11:19)
[2019-04-06] MEDS ORDERED: MORPHINE 2 MG/ML SYR ONE (11:20)
[2019-04-06] MEDS ORDERED: ONDANSETRON 4 MG/2 ML VIAL ONE (11:20)
[2019-04-06 12:18] LABS: ALT/SGPT 48 U/L (12-78); AST/SGOT 23 U/L (15-37); Albumin 3.5 g/dL (3.4-5.0); Alkaline Phosphatase 67 U/L (45-117); BUN Blood Urea Nitrogen 20 mg/dL (7-18); Bicarbonate 28 mmol/L (21-32); Bilirubin Direct 0.1 mg/dL (0-0.2); Bilirubin Total 0.2 mg/dL (0.2-1.0); Glucose Level 103 mg/dL (74-106); NT PRO-BNP 14 pg/mL (<125); Protein, Total 7.2 g/dL (6.4-8.2); Sodium Level 140 mmol/L (136-145); Troponin (Emerg Dept Use Only) < 0.02 ng/mL (0.0-0.045)
--- NOTE | 2019-04-06 13:05 | EDPHYS ---
Physician Documentation [facility] Name: Holden Morris Age: 34 yrs Sex: Male : 1985 Arrival Date: 04/06/2019 Time: 10:14 Bed 27 Private MD: ED Physician Aidan Carranza HPI: 04/06 11:15 This 34 yrs old Black Male presents to ER via EMS with complaints of Chest Pain. [facility] 11:15 The patient or guardian reports chest pain that is located primarily in the substernal m area. The pain radiates to the left arm. Associated signs and symptoms: Pertinent negatives: abdominal pain, cough, lightheadedness, nausea, shortness of breath. The chest pain is described as sharp. Duration: The patient or guardian reports a single episode, that lasted 3 hour(s). Modifying factors: The symptoms are alleviated by nothing. the symptoms are aggravated by deep breath. Historical: - Allergies: 10:19 PENICILLINS; aj1 - Home Meds: 10:19 None [Active]; aj1 - PMHx: 10:19 Anxiety; GERD; Migraines; Asthma; aj1 - Immunization history:: Flu vaccine is not up to date. - Social history:: Smoking status: Patient/guardian denies using tobacco. - Ebola Screening: : Patient denies travel to an Ebola-affected area in the 21 days before illness onset. ROS: 11:15 Constitutional: Negative for fever, chills, and weight loss, Eyes: Negative for injury, jmm pain, redness, and discharge, ENT: Negative for injury, pain, and discharge, Neck: Negative for injury, pain, and swelling. 11:15 Cardiovascular: Positive for chest pain. 11:15 MS/extremity: Positive for pain. 11:15 All other systems are negative. Exam: 11:15 Constitutional: This is a well developed, well nourished patient who is awake, alert, jmm and in no acute distress. Head/Face: atraumatic. Eyes: EOMI, no conjunctival erythema appreciated ENT: Moist Mucus Membranes Neck: Trachea midline, Supple Chest/axilla: Normal chest wall appearance and motion. 11:15 Cardiovascular: Rate: normal, Rhythm: regular. 11:15 Respiratory: the patient does not display signs of respiratory distress, Respirations: normal, Breath sounds: are clear throughout. 11:15 Abdomen/GI: Inspection: abdomen appears normal, Bowel sounds: normal. 11:15 Musculoskeletal/extremity: ROM: intact in all extremities. 11:15 Skin: Appearance: Color: normal in color. 11:15 Neuro: Orientation: is normal, Mentation: is normal, Memory: is normal. 11:15 Psych: Behavior/mood is pleasant, cooperative. Vital Signs: 10:19 BP 139 / 87; Pulse 96; Resp 17; Temp 98.6; Pulse Ox 98% on R/A; Weight 97.52 kg (R); aj1 Height 5 ft. 10 in. (177.80 cm) (R); Pain 9/10; 11:15 BP 121 / 72; Pulse 78; Resp 18; Pulse Ox 99% on R/A; aj1 10:19 Body Mass Index 30.85 (97.52 kg, 177.80 cm) [facility] MDM: 10:19 Patient medically screened. [facility] 13:03 Data reviewed: vital signs, nurses notes, lab test result(s), EKG, radiologic studies, jmm plain films. ED course: HEART SCORE = 1. PERC SCORE NEGATIVE. PATIENT ADVISED TO FOLLOW UP WITH CARDIO FOR REEVALUATION. PATIENT IS OTHERWISE GIVEN STRICT RETURN PRECAUTIONS. PATIENT UNDERSTOOD AND AGREES WITH THE PLAN OF CARE. . 04/06 10:23 Order name: Basic Metabolic Panel; Complete Time: 12:19 [facility] 04/06 10:23 Order name: CBC with Diff; Complete Time: 11:01 [facility] 04/06 10:23 Order name: LFT's; Complete Time: 12:19 [facility] 04/06 10:23 Order name: Magnesium; Complete Time: 12:19 [facility] 04/06 10:23 Order name: NT PRO-BNP; Complete Time: 12:19 [facility] 04/06 10:23 Order name: PT-INR; Complete Time: 11:01 04/06 10:23 Order name: Troponin (emerg Dept Use Only); Complete Time: 12:19 [facility] 04/06 10:23 Order name: XRAY Chest (1 view) [facility] 04/06 10:23 Order name: EKG; Complete Time: 10:24 [facility] 04/06 10:23 Order name: Cardiac monitoring; Complete Time: 10:23 [facility] 04/06 10:23 Order name: EKG - Nurse/Tech; Complete Time: 10:04/06 10:23 Order name: IV Saline Lock; Complete Time: :04/06 10:23 Order name: Labs collected and sent; Complete Time: 10:40 04/06 10:23 Order name: O2 Per Protocol; Complete Time: :04/06 10:23 Order name: O2 Sat Monitoring; Complete Time: : Administered Medications: 11:31 Drug: Aspirin Chewable Tablet 324 mg Route: PO; aj1 12:30 Follow up: Response: No adverse reaction aj1 11:31 Drug: morphine 2 mg Route: IVP; Site: left antecubital; aj1 12:30 Follow up: Response: No adverse reaction; RASS: Alert and Calm (0) aj 11:31 Drug: Zofran 4 mg Route: IVP; Site: left antecubital; aj1 12:30 Follow up: Response: No adverse reaction aj Disposition: 04/06/19 13:04 Discharged to Home. Impression: Chest pain, unspecified. - Condition is Stable. - Discharge Instructions: Nonspecific Chest Pain. - Medication Reconciliation Form, Thank You Letter, Antibiotic Education, Prescription Opioid Use form. - Follow up: Abner Howard MD; When: 2 - 3 days; Reason: Recheck today's complaints, Continuance of care, Re-evaluation by your physician. Follow up: Christopher Pacheco MD; When: 2 - 3 days; Reason: Recheck today's complaints, Continuance of care, Re-evaluation by your physician. Addendum: 04/08/2019 07:51 Co-signature as Attending Physician, Aidan Carranza MD I agree with the assessment and c amaya plan of care. Signatures: Dispatcher [employer] EDAlee Varela RN RN aj1 Aidan Carranza MD MD cha Mickail, Joel, PA PA jmm Corrections: (The following items were deleted from the chart) 04/06 14:15 13:04 04/06/2019 13:04 Discharged to Home. Impression: Chest pain, unspecified. aj1 Condition is Stable. Forms are Medication Reconciliation Form, Thank You Letter, Antibiotic Education, Prescription Opioid Use. Follow up: Abner Howard; When: 2 - 3 days; Reason: Recheck today's complaints, Continuance of care, Re-evaluation by your physician. Follow up: Christopher Pacheco; When: 2 - 3 days; Reason: Recheck today's complaints, Continuance of care, Re-evaluation by your physician. patrick
--- NOTE | 2019-04-06 13:05 | ER ---
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 Patient reports midsternal chest pain that radiates to the left chest and left shoulder. Reports shortness of breath when the chest pain started that has now resolved. Reports that he was admitted to the hospital 2 years ago for an abnormal EKG, but he never got a diagnosis and has not needed any treatment for it. Transition of care: patient was not received from another setting of care. Onset of symptoms was April 06, 2019 at 08:55. Risk Assessment: Do you want to hurt yourself or someone else? Patient reports no desire to harm self or others. Initial Sepsis Screen: Does the patient meet any 2 criteria? No. Patient's initial sepsis screen is negative. Does the patient have a suspected source of infection? No. Patient's initial sepsis screen is negative. Care prior to arrival: None. 10:14 Method Of Arrival: EMS aj1 10:14 Acuity: STONE 3 aj1 Triage Assessment: 10:19 General: Appears in no apparent distress. comfortable, Behavior is calm, cooperative, aj1 appropriate for age. Pain: Complains of pain in mid-sternal area Pain radiates to anterior aspect of left upper chest and posterior aspect of left shoulder Pain currently is 9 out of 10 on a pain scale. Pain began 1 hour ago. Cardiovascular: Reports chest pain. Historical: - Allergies: 10:19 PENICILLINS; aj1 - Home Meds: 10:19 None [Active]; aj1 - PMHx: 10:19 Anxiety; GERD; Migraines; Asthma; aj1 - Immunization history:: Flu vaccine is not up to date. - Social history:: Smoking status: Patient/guardian denies using tobacco. - Ebola Screening: : Patient denies travel to an Ebola-affected area in the 21 days before illness onset. Screenin:15 Abuse screen: Denies threats or abuse. Denies injuries from another. Nutritional aj1 screening: No deficits noted. Tuberculosis screening: No symptoms or risk factors identified. 14:14 Fall Risk None identified. aj1 Assessment: 10:15 General: Appears in no apparent distress. comfortable, Behavior is calm, cooperative, aj1 appropriate for age. Pain: Complains of pain in mid-sternal area Pain radiates to posterior aspect of left shoulder and anterior aspect of left upper chest Pain currently is 9 out of 10 on a pain scale. Pain began 1 hour ago. Alleviated by nothing. Neuro: Level of Consciousness is awake, alert, obeys commands, Oriented to person, place, time, situation, Speech is normal. Cardiovascular: Reports chest pain, Heart tones S1 S2 present Patient's skin is warm and dry. Rhythm is regular. Respiratory: Reports shortness of breath that has now resolved Airway is patent Respiratory effort is even, unlabored, Respiratory pattern is regular, symmetrical, Breath sounds are clear bilaterally. GI: No signs and/or symptoms were reported involving the gastrointestinal system. : No signs and/or symptoms were reported regarding the genitourinary system. EENT: No signs and/or symptoms were reported regarding the EENT system. Derm: No signs and/or symptoms reported regarding the dermatologic system. Skin is normal. Musculoskeletal: No signs and/or symptoms reported regarding the musculoskeletal system. Circulation, motion, and sensation intact. 11:15 Reassessment: Patient appears in no apparent distress at this time. No changes from aj1 previously documented assessment. Patient and/or family updated on plan of care and expected duration. Pain level reassessed. Patient is alert, oriented x 3, equal unlabored respirations, skin warm/dry/pink. Vital Signs: 10:19 BP 139 / 87; Pulse 96; Resp 17; Temp 98.6; Pulse Ox 98% on R/A; Weight 97.52 kg (R); aj1 Height 5 ft. 10 in. (177.80 cm) (R); Pain 9/10; 11:15 BP 121 / 72; Pulse 78; Resp 18; Pulse Ox 99% on R/A; aj1 10:19 Body Mass Index 30.85 (97.52 kg, 177.80 cm) aj1 ED Course: 10:14 Patient arrived in ED. aj1 10:14 Kolby, Alee, RN is Primary Nurse. aj1 10:15 Manjit Salinas PA is PHCP. jmm 10:15 Aidan Carranza MD is Attending Physician. jmm 10:15 Patient has correct armband on for positive identification. 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 Pulse aj1 ox on. NIBP on. 10:15 No provider procedures requiring assistance completed. Patient maintains SpO2 aj1 saturation greater than 95% on room air. 10:15 Maintain EMS IV. Dressing intact. Good blood return noted. Site clean \T\ dry. Gauge \T\ aj 1 site: 20g Left AC. 10:17 Triage completed. aj1 10:19 Arm band placed on. aj1 12:23 XRAY Chest (1 view) In Process Unspecified. EDMS 13:04 Abner Howard MD is Referral Physician. jmm 13:04 Christopher Pacheco MD is Referral Physician. jmm 14:13 IV discontinued, intact, bleeding controlled, No redness/swelling at site. Pressure aj1 dressing applied. Administered Medications: 11:31 Drug: Aspirin Chewable Tablet 324 mg Route: PO; aj1 12:30 Follow up: Response: No adverse reaction aj1 11:31 Drug: morphine 2 mg Route: IVP; Site: left antecubital; aj1 12:30 Follow up: Response: No adverse reaction; RASS: Alert and Calm (0) aj1 11:31 Drug: Zofran 4 mg Route: IVP; Site: left antecubital; aj1 12:30 Follow up: Response: No adverse reaction aj Outcome: 13:04 Discharge ordered by MD. [facility] 14:14 Discharged to home ambulatory. aj1 14:14 Condition: good 14:14 Discharge instructions given to patient, Instructed on discharge instructions, follow up and referral plans. Demonstrated understanding of instructions, follow-up care. 14:15 Patient left the ED. aj1 Signatures: Dispatcher [employer] EDMS Alee Jarrett RN RN aj1 Manjit Salinas PA PA [facility]
[2019-04-06 14:20] VITALS: TEMP 98.6
[2019-04-06 14:21] VITALS: BP 121/72; O2SAT 99
--- NOTE | 2019-04-07 04:41 | EKG ---
Test Date: 2019-04-06 Test Time: 10:13:09 Transit Vehicle Inspector: PIOTR MEASUREMENT RESULTS: Intervals: Rate: 86 [place]: 138 QRSD: 80 QT: 346 QTc: 414 [place]: P: 40 [place]: 138 QRS: 5 T: 14 INTERPRETIVE STATEMENTS: Normal sinus rhythm normal ECG Compared to ECG 03/17/2019 23:14:59 no significant change from previous ECG Electronically Signed On 04-07-19 04:41:17 CDT by Abner Howard
--- NOTE | 2019-04-07 16:59 | RAD REPORT ---
EXAM DESCRIPTION: [facility] Single View04/06/2019 7:08 pm CLINICAL HISTORY: Chest pain COMPARISON: March 2019 FINDINGS: The lungs appear clear of acute infiltrate. The heart is normal size IMPRESSION: No acute abnormalities displayed
== END 2019-04-06 14:15 | disposition home or self-care (01) ==
LOC: ER 10:05
DX: R07.9 Chest pain, unspecified (principal); K21.9 Gastro-esophageal reflux disease without esophagitis; F41.9 Anxiety disorder, unspecified; Z88.0 Allergy status to penicillin
CPT/HCPCS: 36415; 71045; 80048; 80076; 83735; 83880; 84484; 85025; 85610; 93005; 96374; 96375; 99285; J2270; J2405

== ENCOUNTER 2019-05-26 11:40 | Emergency (ER) | payer BC, SELFPAY ==
--- NOTE | 2019-05-26 12:43 | ER ---
Nurse's Notes [facility] Name: Holden Morris Age: 34 yrs Sex: Male : 1985 Arrival Date: 05/26/2019 Time: 11:45 Bed 24 Private MD: Saad Dove T Diagnosis: Acute upper respiratory infection, unspecified Presentation: 05/26 12:05 Presenting complaint: Patient states: cough, sore throat, sneezing, watery eyes X 3 iw days. Transition of care: patient was not received from another setting of care. Onset of symptoms was May 23, 2019. Risk Assessment: Do you want to hurt yourself or someone else? Patient reports no desire to harm self or others. Initial Sepsis Screen: Does the patient meet any 2 criteria? No. Patient's initial sepsis screen is negative. Does the patient have a suspected source of infection? No. Patient's initial sepsis screen is negative. Care prior to arrival: None. 12:05 Method Of Arrival: Ambulatory iw 12:05 Acuity: STONE 4 iw Historical: - Allergies: 12:07 PENICILLINS; iw - PMHx: 12:07 Anxiety; Asthma; GERD; Migraines; iw - PSHx: 12:07 None; iw - Immunization history:: Adult Immunizations not up to date. - Ebola Screening: : Patient negative for fever greater than or equal to 101.5 degrees Fahrenheit, and additional compatible Ebola Virus Disease symptoms Patient denies exposure to infectious person Patient denies travel to an Ebola-affected area in the 21 days before illness onset No symptoms or risks identified at this time. - Social history:: Smoking status: Patient/guardian denies using tobacco. Screenin:43 Abuse screen: Denies threats or abuse. Denies injuries from another. Nutritional ca1 screening: No deficits noted. Tuberculosis screening: No symptoms or risk factors identified. Fall Risk None identified. Assessment: 12:43 General: Appears in no apparent distress. comfortable, Behavior is calm, cooperative, ca1 appropriate for age, Reports fever for > 3 days. Pain: Denies pain. Neuro: Level of Consciousness is awake, alert, obeys commands. Respiratory: Reports cough that is productive, since Tuesday Airway is patent Respiratory effort is even, unlabored, Respiratory pattern is regular, symmetrical, Breath sounds are clear bilaterally. EENT: Reports nasal congestion nasal discharge that is watery since Tuesday. Derm: Skin is intact, is healthy with good turgor, Skin is pink, warm \T\ dry. Vital Signs: 12:08 BP 143 / 92; Pulse 80; Resp 16; Temp 98.2; Pulse Ox 97% on R/A; Weight 102.06 kg; iw Height 5 ft. 10 in. (177.80 cm); 12:08 Body Mass Index 32.28 (102.06 kg, 177.80 cm) ED Course: 11:45 Patient arrived in ED. mr 11:45 Saad Dove MD is Private Physician. mr 11:57 [facility] pm1 11:57 Phillip Parsons MD is Attending Physician. pm1 12:04 Keshia Vernon, RN is Primary Nurse. iw 12:07 Triage completed. iw 12:08 Arm band placed on. iw 12:43 Patient has correct armband on for positive identification. Bed in low position. Call ca1 light in reach. Side rails up X 1. Pulse ox on. NIBP on. 12:43 No provider procedures requiring assistance completed. Patient did not have IV access ca1 during this emergency room visit. Administered Medications: No medications were administered Outcome: 12:42 Discharge ordered by . pm1 12:47 Discharged to home ambulatory. ca1 12:47 Condition: stable 12:47 Discharge instructions given to patient, Instructed on discharge instructions, follow up and referral plans. medication usage, Demonstrated understanding of instructions, follow-up care, medications, Prescriptions given X 1. 12:47 Patient left the ED. ca1 Signatures: Anika Han mr Keshia Vernon, RN RN Anthony Guthrie NP [employer] OPERATOR pm1 Margaret Beckford RN RN ca1
--- NOTE | 2019-05-26 12:43 | EDPHYS ---
Physician Documentation [facility] Name: Holden Morris Age: 34 yrs Sex: Male : 1985 Arrival Date: 05/26/2019 Time: 11:45 Bed 24 Private MD: Saad Dove T ED Physician Phillip Parsons HPI: 05/26 12:36 This 34 yrs old Black Male presents to ER via Ambulatory with complaints of Flu pm1 Symptoms. 12:36 The patient or guardian reports cough, sore throat, runny nose and watery eyes. Onset: pm1 The symptoms/episode began/occurred 3 day(s) ago. Modifying factors: The symptoms are alleviated by nothing. the symptoms are aggravated by nothing. Associated signs and symptoms: Pertinent positives: chest pain, with cough, sore throat, Pertinent negatives: ear ache, fever, vomiting. Severity of symptoms: in the emergency department the symptoms are unchanged. The patient has not recently seen a physician. Historical: - Allergies: 12:07 PENICILLINS; iw - PMHx: 12:07 Anxiety; Asthma; GERD; Migraines; iw - PSHx: 12:07 None; iw - Immunization history:: Adult Immunizations not up to date. - Ebola Screening: : Patient negative for fever greater than or equal to 101.5 degrees Fahrenheit, and additional compatible Ebola Virus Disease symptoms Patient denies exposure to infectious person Patient denies travel to an Ebola-affected area in the 21 days before illness onset No symptoms or risks identified at this time. - Social history:: Smoking status: Patient/guardian denies using tobacco. ROS: 12:36 Constitutional: Negative for fever, chills, and weight loss. pm1 12:36 Neck: Negative for injury, pain, and swelling, Cardiovascular: Negative for chest pain, palpitations, and edema. 12:36 Abdomen/GI: Negative for abdominal pain, nausea, vomiting, diarrhea, and constipation, Back: Negative for injury and pain, MS/Extremity: Negative for injury and deformity, Skin: Negative for injury, rash, and discoloration, Neuro: Negative for headache, weakness, numbness, tingling, and seizure. 12:36 Eyes: Positive for watery eyes bialterally, Negative for pain. 12:36 ENT: Positive for sore throat, Negative for drainage from ear(s), ear pain, sinus congestion, sinus pain, difficulty swallowing, difficulty handling secretions, hoarseness. 12:36 Respiratory: Positive for cough, Negative for shortness of breath, sputum production, wheezing. Exam: 12:36 Constitutional: This is a well developed, well nourished patient who is awake, alert, pm1 and in no acute distress. Head/Face: Normocephalic, atraumatic. Eyes: Pupils equal round and reactive to light, extra-ocular motions intact. Lids and lashes normal. Conjunctiva and sclera are non-icteric and not injected. Cornea within normal limits. Periorbital areas with no swelling, redness, or edema. ENT: Nares patent. No nasal discharge, no septal abnormalities noted. Tympanic membranes are normal and external auditory canals are clear. Oropharynx with no redness, swelling, or masses, exudates, or evidence of obstruction, uvula midline. Mucous membranes moist. Neck: Trachea midline, no thyromegaly or masses palpated, and no cervical lymphadenopathy. Supple, full range of motion without nuchal rigidity, or vertebral point tenderness. No Meningismus. Chest/axilla: Normal chest wall appearance and motion. Nontender with no deformity. No lesions are appreciated. Cardiovascular: Regular rate and rhythm with a normal S1 and S2. No gallops, murmurs, or rubs. Normal PMI, no JVD. No pulse deficits. Respiratory: Lungs have equal breath sounds bilaterally, clear to auscultation and percussion. No rales, rhonchi or wheezes noted. No increased work of breathing, no retractions or nasal flaring. Abdomen/GI: Soft, non-tender, with normal bowel sounds. No distension or tympany. No guarding or rebound. No evidence of tenderness throughout. Back: No spinal tenderness. No costovertebral tenderness. Full range of motion. Skin: Warm, dry with normal turgor. Normal color with no rashes, no lesions, and no evidence of cellulitis. MS/ Extremity: Pulses equal, no cyanosis. Neurovascular intact. Full, normal range of motion. 12:36 Neuro: Orientation: is normal, Motor: is normal, moves all fours, Gait: is steady, at a normal pace, without difficulty. Vital Signs: 12:08 BP 143 / 92; Pulse 80; Resp 16; Temp 98.2; Pulse Ox 97% on R/A; Weight 102.06 kg; iw Height 5 ft. 10 in. (177.80 cm); 12:08 Body Mass Index 32.28 (102.06 kg, 177.80 cm) iw MDM: 12:02 Patient medically screened. pm1 12:37 Data reviewed: vital signs. Data interpreted: Pulse oximetry: on room air is 97 %. pm1 Interpretation: normal. Counseling: I had a detailed discussion with the patient and/or guardian regarding: the historical points, exam findings, and any diagnostic results supporting the discharge/admit diagnosis, lab results, the need for outpatient follow up, to return to the emergency department if symptoms worsen or persist or if there are any questions or concerns that arise at home. 05/26 12:03 Order name: Flu; Complete Time: 12:36 pm1 05/26 12:03 Order name: Strep; Complete Time: 12:36 pm1 05/26 12:46 Order name: Throat Culture EDMS Administered Medications: No medications were administered Disposition: 16:39 Co-signature as Attending Physician, Phillip Parsons MD I agree with the assessment and kdr plan of care. Disposition: 05/26/19 12:42 Discharged to Home. Impression: Acute upper respiratory infection, unspecified. - Condition is Stable. - Discharge Instructions: Upper Respiratory Infection, Adult, Viral Respiratory Infection. - Prescriptions for Bromfed DM 2- 30-10 mg/5 mL Oral syrup - take 10 milliliter by ORAL route every 4 hours As needed; 200 milliliter. - Medication Reconciliation Form, Thank You Letter, Antibiotic Education, Prescription Opioid Use, Work release form form. - Follow up: Emergency Department; When: As needed; Reason: Worsening of condition. Follow up: Private Physician; When: 2 - 3 days; Reason: Recheck today's complaints, Continuance of care, Re-evaluation by your physician. - Problem is new. - Symptoms have improved. Signatures: Dispatcher [employer] EDMS Phillip Parsons MD MD [facility] Keshia Vernon RN RN Anthony Guthrie, ELIAS FINISHING RANGE OPERATOR pm1 Margaret Beckford RN RN ca1 Corrections: (The following items were deleted from the chart) 12:47 12:42 05/26/2019 12:42 Discharged to Home. Impression: Acute upper respiratory ca1 infection, unspecified. Condition is Stable. Forms are Medication Reconciliation Form, Thank You Letter, Antibiotic Education, Prescription Opioid Use. Follow up: Emergency Department; When: As needed; Reason: Worsening of condition. Follow up: Private Physician; When: 2 - 3 days; Reason: Recheck today's complaints, Continuance of care, Re-evaluation by your physician. Problem is new. Symptoms have improved. pm1
[2019-05-26 12:54] VITALS: BP 143/92; TEMP 98.2; O2SAT 97
== END 2019-05-26 12:47 | disposition home or self-care (01) ==
LOC: ER 11:40
DX: J06.9 Acute upper respiratory infection, unspecified (principal); Z88.0 Allergy status to penicillin
CPT/HCPCS: 87070; 87081; 87804; 99283

== ENCOUNTER 2019-10-01 09:52 | Emergency (ER) | payer BC, SELFPAY ==
--- NOTE | 2019-10-01 10:17 | EDPHYS ---
Physician Documentation [facility] Name: Holden Morris Age: 34 yrs Sex: Male : 1985 Arrival Date: 10/01/2019 Time: 09:56 Bed 14 Private MD: Aidan Stevenson HPI: 09/30 10:11 This 34 yrs old Black Male presents to ER via Ambulatory with complaints of Rash. pm1 10:11 The patient's rash thought to be caused by an unknown cause, but possible contact pm1 allergy. The rash is located on the right subscapular area, right flank, right mid back and right low back and left lower quadrant. The rash can be described as raised. Onset: The symptoms/episode began/occurred 3 day(s) ago. Associated signs and symptoms: Pertinent positives: itching, Pertinent negatives: burning sensation, difficulty breathing, fever, swelling of lips, swelling of throat, swelling of tongue, vomiting, wheezing. Severity of symptoms: in the emergency department the symptoms are unchanged. Treatment given at home: Benadryl. The patient has not experienced similar symptoms in the past. It is unknown whether or not the patient has recently seen a physician. Historical: - Allergies: 10:18 PENICILLINS; bp - Home Meds: 10:18 carvedilol oral oral [Active]; bp - PMHx: 10:18 Anxiety; Asthma; GERD; Migraines; bp - Immunization history:: Adult Immunizations up to date. - Social history:: Smoking status: unknown. ROS: 10:19 Constitutional: Negative for fever, chills, and weight loss, Cardiovascular: Negative pm1 for chest pain, palpitations, and edema, Respiratory: Negative for shortness of breath, cough, wheezing, and pleuritic chest pain, Abdomen/GI: Negative for abdominal pain, nausea, vomiting, diarrhea, and constipation, Back: Negative for injury and pain. 10:19 Skin: Positive for rash. 10:19 All other systems are negative. Exam: 10:19 Constitutional: This is a well developed, well nourished patient who is awake, alert, pm1 and in no acute distress. Head/Face: Normocephalic, atraumatic. Chest/axilla: Normal chest wall appearance and motion. Nontender with no deformity. No lesions are appreciated. Cardiovascular: Regular rate and rhythm with a normal S1 and S2. No gallops, murmurs, or rubs. Normal PMI, no JVD. No pulse deficits. Respiratory: Lungs have equal breath sounds bilaterally, clear to auscultation and percussion. No rales, rhonchi or wheezes noted. No increased work of breathing, no retractions or nasal flaring. Abdomen/GI: Soft, non-tender, with normal bowel sounds. No distension or tympany. No guarding or rebound. No evidence of tenderness throughout. Back: No spinal tenderness. No costovertebral tenderness. Full range of motion. 10:19 Skin: Appearance: normal except for affected area, on the right flank and left lower quadrant. 10:19 Neuro: Exam negative for acute changes, Orientation: is normal, Motor: is normal, moves all fours. Vital Signs: 10:16 BP 129 / 92; Pulse 81; Resp 16; Temp 98.5; Pulse Ox 99% ; Weight 97.52 kg; Height 5 ft. bp 10 in. (177.80 cm); 10:16 Body Mass Index 30.85 (97.52 kg, 177.80 cm) bp MDM: 10:10 Patient medically screened. pm1 10:14 Counseling: I had a detailed discussion with the patient and/or guardian regarding: the pm1 historical points, exam findings, and any diagnostic results supporting the discharge/admit diagnosis, the need for outpatient follow up, for definitive care, a accounts administrator, a family practitioner, to return to the emergency department if symptoms worsen or persist or if there are any questions or concerns that arise at home. 10:16 Data reviewed: vital signs. Data interpreted: Pulse oximetry: on room air is 99 %. pm1 Interpretation: normal. Administered Medications: 10:20 Drug: Decadron 10 mg Route: IM; Site: left deltoid; bp 10:40 Follow up: Response: No adverse reaction bp Disposition: 17:08 Co-signature as Attending Physician, Aidan Carranza MD I agree with the assessment and lorna plan of care. Disposition: 10/01/19 10:16 Discharged to Home. Impression: Rash and other nonspecific skin eruption. - Condition is Stable. - Discharge Instructions: Rash. - Prescriptions for Benadryl 25 mg Oral Capsule - take 1 capsule by ORAL route every 6 hours As needed; 30 tablet. Pepcid 20 mg Oral Tablet - take 1 tablet by ORAL route every 12 hours for 10 days; 20 tablet. Medrol (Delfino) 4 mg Oral Tablets, Dose Pack - take 1 tablet by ORAL route as directed - follow package instructions; 1 packet. - Medication Reconciliation Form, Thank You Letter, Antibiotic Education, Prescription Opioid Use, Work release form form. - Follow up: Emergency Department; When: As needed; Reason: Worsening of condition. Follow up: Private Physician; When: 2 - 3 days; Reason: Recheck today's complaints, Continuance of care, Re-evaluation by your physician. - Problem is new. - Symptoms have improved. Signatures: Aidan Carrnaza MD MD cha Marinas, Patrick, MANAGER SECURITY MANAGER SECURITY pm1 Aurelio Atkins, RN RN bp Corrections: (The following items were deleted from the chart) 10:40 10:16 10/01/2019 10:16 Discharged to Home. Impression: Rash and other nonspecific skin bp eruption. Condition is Stable. Forms are Medication Reconciliation Form, Thank You Letter, Antibiotic Education, Prescription Opioid Use. Follow up: Emergency Department; When: As needed; Reason: Worsening of condition. Follow up: Private Physician; When: 2 - 3 days; Reason: Recheck today's complaints, Continuance of care, Re-evaluation by your physician. Problem is new. Symptoms have improved. pm1
[2019-10-01] MEDS ORDERED: dexAMETHasone 10 MG/ML VIAL ONE (10:36)
--- NOTE | 2019-10-01 10:44 | ER ---
Nurse's Notes [facility] Name: Holden Morris Age: 34 yrs Sex: Male : 1985 Arrival Date: 10/01/2019 Time: 09:56 Bed 14 Private MD: Diagnosis: Rash and other nonspecific skin eruption Presentation: 09/30 10:16 Chief complaint: Patient states: RASH ON BACK x2 DAYS. Coronavirus screen: Patient bp denies fever greater than 100.4F, cough, shortness of breath, or difficulty breathing. Proceed with normal triage process. Ebola Screen: No symptoms or risks identified at this time. Initial Sepsis Screen: Does the patient meet any 2 criteria? No. Patient's initial sepsis screen is negative. Does the patient have a suspected source of infection? No. Patient's initial sepsis screen is negative. Risk Assessment: Do you want to hurt yourself or someone else? Patient reports no desire to harm self or others. 10:16 Method Of Arrival: Ambulatory bp 10:16 Acuity: STONE 4 bp Triage Assessment: 10:18 General: Appears in no apparent distress. comfortable, Behavior is calm, cooperative, bp appropriate for age. Pain: Denies pain. EENT: No deficits noted. Neuro: No deficits noted. Cardiovascular: No deficits noted. Respiratory: No deficits noted. GI: No signs and/or symptoms were reported involving the gastrointestinal system. : No signs and/or symptoms were reported regarding the genitourinary system. Derm: Reports RASH ON BACK. Musculoskeletal: No deficits noted. Historical: - Allergies: 10:18 PENICILLINS; bp - Home Meds: 10:18 carvedilol oral oral [Active]; bp - PMHx: 10:18 Anxiety; Asthma; GERD; Migraines; bp - Immunization history:: Adult Immunizations up to date. - Social history:: Smoking status: unknown. Screenin:19 Abuse screen: Denies threats or abuse. Denies injuries from another. Nutritional bp screening: No deficits noted. Tuberculosis screening: No symptoms or risk factors identified. Fall Risk None identified. Assessment: 10:19 General: SEE TRIAGE NOTE. bp 10:39 Reassessment: PT D/C HOME AMBULATORY, DX WITH NONSPECIFIC SKIN ERUPTION. bp Vital Signs: 10:16 BP 129 / 92; Pulse 81; Resp 16; Temp 98.5; Pulse Ox 99% ; Weight 97.52 kg; Height 5 ft. bp 10 in. (177.80 cm); 10:16 Body Mass Index 30.85 (97.52 kg, 177.80 cm) bp ED Course: 09:56 Patient arrived in ED. fj1 10:05 Aurelio Atkins, RN is Primary Nurse. bp 10:07 Anthony Guthrie NP is PHCP. pm1 10:07 Aidan Carranza MD is Attending Physician. pm1 10:17 Triage completed. bp 10:18 Arm band placed on. bp 10:19 Patient has correct armband on for positive identification. Bed in low position. Call bp light in reach. Side rails up X2. 10:39 No provider procedures requiring assistance completed. Patient did not have IV access bp during this emergency room visit. Administered Medications: 10:20 Drug: Decadron 10 mg Route: IM; Site: left deltoid; bp 10:40 Follow up: Response: No adverse reaction bp Outcome: 10:16 Discharge ordered by . pm1 10:39 Discharged to home ambulatory. bp 10:39 Condition: stable 10:39 Discharge instructions given to patient, Instructed on discharge instructions, follow up and referral plans. medication usage, Demonstrated understanding of instructions, follow-up care, medications, Prescriptions given X 3. 10:40 Patient left the ED. bp Signatures: Anthony Guthrie NP ELEMENTARY CLASSROOM TEACHER pm1 Aurelio Atkins, RN RN Zack Rubalcava [facility]
[2019-10-01 10:53] VITALS: BP 129/92; TEMP 98.5; O2SAT 99
== END 2019-10-01 10:40 | disposition home or self-care (01) ==
LOC: ER 09:52
DX: R21 Rash and other nonspecific skin eruption (principal); F41.9 Anxiety disorder, unspecified; Z88.0 Allergy status to penicillin
CPT/HCPCS: 96372; 99283; J1100

== ENCOUNTER 2019-10-24 16:44 | Emergency (ER) | payer SELFPAY, OTHER ==
[2019-10-24 18:39] VITALS: TEMP 98.5
[2019-10-24 18:40] VITALS: O2SAT 100
[2019-10-24 18:41] VITALS: BP 142/83
== END 2019-10-24 18:34 | disposition home or self-care (01) ==
LOC: ER 16:44
DX: R19.7 Diarrhea, unspecified (principal); Z20.828 Contact with and (suspected) exposure to other viral communicable diseases; Z88.0 Allergy status to penicillin
CPT/HCPCS: 87070; 87081; 87804; 99283; U0001

== ENCOUNTER 2020-01-11 05:50 | Emergency (ER) | payer SELFPAY, OTHER ==
[2020-01-11] MEDS ORDERED: FLUORESCEIN SODIUM 1 MG/WRAP ONE (07:26)
--- NOTE | 2020-01-11 07:32 | EDPHYS ---
Physician Documentation [facility] Name: Holden Morris Age: 35 yrs Sex: Male : 1985 Arrival Date: 01/11/2020 Time: 05:51 Bed 20 Private MD: ED Physician Phillip Parsons HPI: 01/10 07:39 This 35 yrs old Black Male presents to ER via Ambulatory with complaints of Blurred kdr Vision and pain in left eye. 07:39 The patient is experiencing blurred vision, burning, pain, The patient states that when kdr he puts his steroid drops in his eye, he has discomfort and his vision is blurry but it generally gets better over the course of the day. he had a corneal transplant several months ago and does not have follow-up until February 10.. Onset: The symptoms/episode began/occurred last few days. Duration: the symptoms are intermittent, are episodic. Aggravated by Putting steroid drops in the left eye. Associated signs and symptoms: Pertinent positives: None. Patient wears glasses. Severity of symptoms: At their worst the symptoms were mild moderate just prior to arrival, in the emergency department the symptoms are unchanged. The patient has not recently seen a physician. Historical: - Allergies: 07:15 PENICILLINS; sv - Home Meds: 07:15 carvedilol Oral [Active]; sv - PMHx: 07:15 Anxiety; Asthma; GERD; Migraines; sv - PSHx: 07:15 left cornea transplant; sv - Immunization history:: Adult Immunizations up to date. - Social history:: Smoking status: . ROS: 07:39 Constitutional: Negative for fever, chills, and weight loss, Neck: Negative for injury, kdr pain, and swelling. 07:39 Eyes: Positive for blurry vision, redness, Negative for foreign body sensation, injury or acute deformity, matting, photophobia, tearing, vision loss. Exam: 07:39 Constitutional: This is a well developed, well nourished patient who is awake, alert, kdr and in no acute distress. Head/Face: Normocephalic, atraumatic. 07:39 Eyes: Periorbital structures: appear normal, Pupils: equal, round, and reactive to light and accomodation, Extraocular movements: no acute changes, Corneas: foreign body, is not appreciated, a fluorescein strip employed to appreciate the findings, There is a rukhsana-limbic whitish material (possible corneal transplant stitches). No other abnormalities noted, Sclera: no appreciated abnormality. Vital Signs: 07:13 BP 155 / 76; Pulse 93; Resp 20; Temp 98; Pulse Ox 100% ; Weight 95.25 kg; Height 5 ft. sv 10 in. (177.80 cm); 07:13 Body Mass Index 30.13 (95.25 kg, 177.80 cm) sv MDM: 07:31 Patient medically screened. kdr 07:54 Data reviewed: vital signs, nurses notes. Counseling: I had a detailed discussion with kdr the patient and/or guardian regarding: the historical points, exam findings, and any diagnostic results supporting the discharge/admit diagnosis, the need for outpatient follow up. Administered Medications: No medications were administered Disposition: 01/11/20 07:31 Discharged to Home. Impression: Ocular pain, left eye - s/p corneal transplant. - Condition is Stable. - Discharge Instructions: Pain Without a Known Cause, Dry Eye. - Medication Reconciliation Form, Thank You Letter, Work release form form. - Follow up: Private Physician; When: 48 Hours; Reason: If symptoms return, Further diagnostic work-up, Recheck today's complaints, Continuance of care, Re-evaluation by your physician. - Problem is an ongoing problem. - Symptoms are resolved. - Notes: Please follow-up with your eye doctor as soon as possible. Signatures: Giuliana Saucedo RN RN Phillip Parsons MD MD [facility] [address] Corrections: (The following items were deleted from the chart) 07:56 07:31 01/11/2020 07:31 Discharged to Home. Impression: Ocular pain, left eye - s/p sv corneal transplant. Condition is Stable. Forms are Medication Reconciliation Form, Thank You Letter, Antibiotic Education, Prescription Opioid Use. Follow up: Private Physician; When: 48 Hours; Reason: If symptoms return, Further diagnostic work-up, Recheck today's complaints, Continuance of care, Re-evaluation by your physician. Problem is an ongoing problem. Symptoms are resolved. kdr
--- NOTE | 2020-01-11 07:32 | ER ---
Nurse's Notes [facility] Name: Holden Morris Age: 35 yrs Sex: Male : 1985 Arrival Date: 01/11/2020 Time: 05:51 Bed 20 Private MD: Diagnosis: Ocular pain, left eye-s/p corneal transplant Presentation: 01/10 07:13 Chief complaint: Patient states: had a panic attack around 0100 today then started sv having blurry vision in the left eye and the right eye started later. Reports intermittent blurry vision now. Hx left cornea transplant 07/24/19. Coronavirus screen: Proceed with normal triage. Patient denies a cough. Patient denies shortness of breath or difficulty breathing. Patient denies measured and/or subjective temperature greater than 100.4F prior to today's visit. Patient denies travel on a cruise ship or to a country the [facility] currently lists as an affected area. Patient denies contact with known and/or suspected case of COVID-19. Ebola Screen: No symptoms or risks identified at this time. Initial Sepsis Screen: Does the patient meet any 2 criteria? HR > 90 bpm. No. Patient's initial sepsis screen is negative. Does the patient have a suspected source of infection? No. Patient's initial sepsis screen is negative. Risk Assessment: Do you want to hurt yourself or someone else? Patient reports no desire to harm self or others. Onset of symptoms was January 11, 2020 at 01:00. 07:13 Method Of Arrival: Ambulatory sv 07:13 Acuity: STONE 3 sv Triage Assessment: 07:13 General: Appears in no apparent distress. comfortable, well developed, Behavior is sv calm, cooperative, appropriate for age. Pain: Denies pain. Neuro: Level of Consciousness is awake, alert, obeys commands, Oriented to person, place, time, situation, Moves all extremities. Full function Gait is steady. Neuro: Reports intermittent blurry vision. Respiratory: Respiratory effort is even, unlabored, Respiratory pattern is regular, symmetrical. Derm: Skin is pink, warm \T\ dry. Historical: - Allergies: 07:15 PENICILLINS; sv - Home Meds: 07:15 carvedilol Oral [Active]; sv - PMHx: 07:15 Anxiety; Asthma; GERD; Migraines; sv - PSHx: 07:15 left cornea transplant; sv - Immunization history:: Adult Immunizations up to date. - Social history:: Smoking status: . Screenin:15 Abuse screen: Denies threats or abuse. Denies injuries from another. Nutritional sv screening: No deficits noted. Tuberculosis screening: No symptoms or risk factors identified. Fall Risk None identified. Assessment: 07:56 Reassessment: Patient appears in no apparent distress at this time. No changes from sv previously documented assessment. Patient and/or family updated on plan of care and expected duration. Pain level reassessed. Patient is alert, oriented x 3, equal unlabored respirations, skin warm/dry/pink. Vital Signs: 07:13 BP 155 / 76; Pulse 93; Resp 20; Temp 98; Pulse Ox 100% ; Weight 95.25 kg; Height 5 ft. sv 10 in. (177.80 cm); 07:13 Body Mass Index 30.13 (95.25 kg, 177.80 cm) sv ED Course: 05:51 Patient arrived in ED. cl3 07:07 Phillip Parsons MD is Attending Physician. kdr 07:12 Giuliana Saucedo RN is Primary Nurse. sv 07:13 ED physician to see patient. sv 07:15 Triage completed. sv 07:15 Arm band placed on. sv 07:15 Patient has correct armband on for positive identification. Bed in low position. Call light in reach. 07:40 Assist provider with eye exam of both eyes. using fluorescein stain, Performed by Phillip Parsons MD Patient tolerated well. 07:56 Patient did not have IV access during this emergency room visit. sv Administered Medications: No medications were administered Outcome: 07:31 Discharge ordered by . kdr 07:56 Discharged to home ambulatory. sv 07:56 Condition: stable 07:56 Discharge instructions given to patient, Instructed on discharge instructions, follow up and referral plans. Demonstrated understanding of instructions, follow-up care. 07:56 Patient left the ED. sv Signatures: Giuliana Saucedo, Phillip Bey RN, MD MD kdr Lewis, Charde cl3 Corrections: (The following items were deleted from the chart) 13:53 07:56 No provider procedures requiring assistance completed. sv sv
[2020-01-11 08:01] VITALS: BP 155/76; TEMP 98; O2SAT 100
== END 2020-01-11 07:56 | disposition home or self-care (01) ==
LOC: ER 05:50
DX: H57.12 Ocular pain, left eye (principal); Z94.7 Corneal transplant status; Z88.0 Allergy status to penicillin
CPT/HCPCS: 99283

== ENCOUNTER 2020-02-10 01:16 | Emergency (ER) | payer SELFPAY, OTHER ==
--- NOTE | 2020-02-10 02:24 | EDPHYS ---
Physician Documentation [facility] Name: Holden Morris Age: 35 yrs Sex: Male : 1985 Arrival Date: 02/10/2020 Time: 01:19 Bed 25 Private MD: EDUARDO Physician Aidan Carranza HPI: 02/09 02:18 This 35 yrs old Black Male presents to ER via Ambulatory with complaints of Insect lorna Bite, Allergic Reaction. 02:18 The patient presents with rash, redness of skin. Onset: The symptoms/episode lorna began/occurred just prior to arrival. Associated signs and symptoms: Pertinent positives: rash. Possible causes: bees. At home the patient or guardian has treated the symptoms with nothing. Severity of symptoms: At their worst the symptoms were mild in the emergency department the symptoms are unchanged. The patient has experienced a previous episode, approximately 5 years ago. Historical: - Allergies: 01:21 PENICILLINS; sg - PMHx: 01:21 Anxiety; Asthma; GERD; Migraines; sg - PSHx: 01:21 left cornea transplant; sg - Immunization history:: Adult Immunizations not up to date. - Social history:: Smoking status: Patient denies any tobacco usage or history of. ROS: 02:20 Constitutional: Negative for fever, chills, and weight loss, Eyes: Negative for injury, lorna pain, redness, and discharge, ENT: Negative for injury, pain, and discharge, Neck: Negative for injury, pain, and swelling, Cardiovascular: Negative for chest pain, palpitations, and edema, Respiratory: Negative for shortness of breath, cough, wheezing, and pleuritic chest pain, Abdomen/GI: Negative for abdominal pain, nausea, vomiting, diarrhea, and constipation, Back: Negative for injury and pain, : Negative for injury, bleeding, discharge, and swelling, Skin: Negative for injury, rash, and discoloration, Neuro: Negative for headache, weakness, numbness, tingling, and seizure, Psych: Negative for depression, anxiety, suicide ideation, homicidal ideation, and hallucinations, Allergy/Immunology: Negative for hives, rash, and allergies, Endocrine: Negative for neck swelling, polydipsia, polyuria, polyphagia, and marked weight changes, Hematologic/Lymphatic: Negative for swollen nodes, abnormal bleeding, and unusual bruising. 02:20 MS/extremity: Positive for pain, swelling, tenderness, of the left knee. Exam: 02:20 Constitutional: This is a well developed, well nourished patient who is awake, alert, lorna and in no acute distress. Head/Face: Normocephalic, atraumatic. Eyes: Pupils equal round and reactive to light, extra-ocular motions intact. Lids and lashes normal. Conjunctiva and sclera are non-icteric and not injected. Cornea within normal limits. Periorbital areas with no swelling, redness, or edema. ENT: Nares patent. No nasal discharge, no septal abnormalities noted. Tympanic membranes are normal and external auditory canals are clear. Oropharynx with no redness, swelling, or masses, exudates, or evidence of obstruction, uvula midline. Mucous membranes moist. Neck: Trachea midline, no thyromegaly or masses palpated, and no cervical lymphadenopathy. Supple, full range of motion without nuchal rigidity, or vertebral point tenderness. No Meningismus. Chest/axilla: Normal chest wall appearance and motion. Nontender with no deformity. No lesions are appreciated. Cardiovascular: Regular rate and rhythm with a normal S1 and S2. No gallops, murmurs, or rubs. Normal PMI, no JVD. No pulse deficits. Respiratory: Lungs have equal breath sounds bilaterally, clear to auscultation and percussion. No rales, rhonchi or wheezes noted. No increased work of breathing, no retractions or nasal flaring. Abdomen/GI: Soft, non-tender, with normal bowel sounds. No distension or tympany. No guarding or rebound. No evidence of tenderness throughout. Back: No spinal tenderness. No costovertebral tenderness. Full range of motion. Male : Normal genitalia with no discharge or lesions. Skin: Warm, dry with normal turgor. Normal color with no rashes, no lesions, and no evidence of cellulitis. Neuro: Awake and alert, GCS 15, oriented to person, place, time, and situation. Cranial nerves II-XII grossly intact. Motor strength 5/5 in all extremities. Sensory grossly intact. Cerebellar exam normal. Normal gait. Psych: Awake, alert, with orientation to person, place and time. Behavior, mood, and affect are within normal limits. 02:20 Musculoskeletal/extremity: Extremities: noted in the left knee: decreased ROM, pain, ROM: no acute changes, full active range of motion, full passive range of motion, Circulation is intact in all extremities. Sensation intact. Compartment Syndrome exam of affected extremity: is normal. DVT Exam: negative Homans' sign noted on exam, no appreciated bluish discoloration, no erythema, no increased warmth, pain, swelling, tenderness. Vital Signs: 01:28 BP 132 / 88; Pulse 84; Resp 18; Temp 98.3; Pulse Ox 98% on R/A; Weight 97.52 kg; Height mg2 5 ft. 10 in. (177.80 cm); 02:23 BP 114 / 71; Pulse 80; Resp 18; Pulse Ox 99% on R/A; mg2 01:28 Body Mass Index 30.85 (97.52 kg, 177.80 cm) mg2 MDM: 01:21 Patient medically screened. lorna 02:20 Data reviewed: vital signs, nurses notes. Data interpreted: night monitor: rate is 84 lorna beats/min, rhythm is regular, Pulse oximetry: on room air is 98 %. Counseling: I had a detailed discussion with the patient and/or guardian regarding: the historical points, exam findings, and any diagnostic results supporting the discharge/admit diagnosis, the need for outpatient follow up, for definitive care, a family practitioner. ED course: non toxic, op neg, no stridor, stable , will follow up , return if worse. Administered Medications: 02:26 Drug: Benadryl 50 mg Route: PO; mg2 02:46 Follow up: Response: No adverse reaction; Medication administered at discharge. mg2 02:26 Drug: predniSONE 60 mg Route: PO; mg2 02:46 Follow up: Response: No adverse reaction; Medication administered at discharge. mg2 Disposition: 02/10/20 02:24 Discharged to Home. Impression: Toxic effect of venom of wasps. - Condition is Stable. - Discharge Instructions: Bee, Wasp, or Hornet Sting, Adult. - Prescriptions for Benadryl 25 mg Oral Capsule - take 1 capsule by ORAL route every 6 hours As needed; 30 tablet. Pepcid 20 mg Oral Tablet - take 1 tablet by ORAL route every 12 hours for 10 days; 20 tablet. Prednisone 20 mg Oral Tablet - take 2 tablet by ORAL route once daily for 5 days; 10 tablet. EpiPen 0.3 mg Injection auto- injector - inject 1 pen by INTRAMUSCULAR route one time Inject into the outer portion of the thigh, through clothing if necessary. Indicated in the emergency treatment of allergic reactions; 1 Cartridge. - Medication Reconciliation Form, Thank You Letter, Antibiotic Education, Prescription Opioid Use, Work release form form. - Follow up: Private Physician; When: 2 - 3 days; Reason: Recheck today's complaints, Continuance of care, Re-evaluation by your physician. - Problem is new. - Symptoms have improved. Signatures: Holden Segovia RN RN Aidan Degroot MD MD cha Gardose, Michele, RN RN mg2 Corrections: (The following items were deleted from the chart) 02:41 02:24 02/10/2020 02:24 Discharged to Home. Impression: Toxic effect of venom of wasps. sg Condition is Stable. Forms are Work release form, Medication Reconciliation Form, Thank You Letter, Antibiotic Education, Prescription Opioid Use. Follow up: Private Physician; When: 2 - 3 days; Reason: Recheck today's complaints, Continuance of care, Re-evaluation by your physician. Problem is new. Symptoms have improved. lorna
--- NOTE | 2020-02-10 02:24 | ER ---
Nurse's Notes [facility] Name: Holden Morris Age: 35 yrs Sex: Male : 1985 Arrival Date: 02/10/2020 Time: 01:19 Bed 25 Private MD: Diagnosis: Toxic effect of venom of wasps Presentation: 02/09 01:19 Chief complaint: Patient states: I got a bite from I guess a bug, having itching and sg some redness. Coronavirus screen: Client denies travel out of the [place] in the last 14 days. Ebola Screen: Patient negative for fever greater than or equal to 101.5 degrees Fahrenheit, and additional compatible Ebola Virus Disease symptoms Patient denies exposure to infectious person. Patient denies travel to an Ebola-affected area in the 21 days before illness onset. No symptoms or risks identified at this time. Initial Sepsis Screen: Does the patient meet any 2 criteria? No. Patient's initial sepsis screen is negative. Does the patient have a suspected source of infection? No. Patient's initial sepsis screen is negative. Risk Assessment: Do you want to hurt yourself or someone else? Patient reports no desire to harm self or others. Onset of symptoms was February 10, 2020. Care prior to arrival: None. 01:19 Acuity: STONE 4 sg 01:19 Method Of Arrival: Ambulatory sg Triage Assessment: 01:29 Bite description: bite sustained to left knee is superficial, was sustained less than mg2 30 minutes ago. by a wasp, animal information: vaccination(s) is not applicable. Historical: - Allergies: 01:21 PENICILLINS; sg - PMHx: 01:21 Anxiety; Asthma; GERD; Migraines; sg - PSHx: 01:21 left cornea transplant; sg - Immunization history:: Adult Immunizations not up to date. - Social history:: Smoking status: Patient denies any tobacco usage or history of. Screenin:28 Abuse screen: Denies threats or abuse. Denies injuries from another. Nutritional mg2 screening: No deficits noted. Tuberculosis screening: No symptoms or risk factors identified. Fall Risk None identified. Assessment: 01:27 General: Appears in no apparent distress. comfortable, Behavior is calm, cooperative. mg2 Pain: Complains of pain in left knee. Neuro: Level of Consciousness is awake, alert, obeys commands, Oriented to person, place, time, situation. Cardiovascular: Capillary refill < 3 seconds Patient's skin is warm and dry. Respiratory: Airway is patent Respiratory effort is even, unlabored, Respiratory pattern is regular, symmetrical. GI: No signs and/or symptoms were reported involving the gastrointestinal system. : No signs and/or symptoms were reported regarding the genitourinary system. EENT: No signs and/or symptoms were reported regarding the EENT system. Derm: Skin is intact, mild redness in the left knee Skin is pink, warm \T\ dry. Musculoskeletal: Circulation, motion, and sensation intact. Capillary refill < 3 seconds. Vital Signs: 01:28 BP 132 / 88; Pulse 84; Resp 18; Temp 98.3; Pulse Ox 98% on R/A; Weight 97.52 kg; Height mg2 5 ft. 10 in. (177.80 cm); 02:23 BP 114 / 71; Pulse 80; Resp 18; Pulse Ox 99% on R/A; mg2 01:28 Body Mass Index 30.85 (97.52 kg, 177.80 cm) mg2 ED Course: 01:19 Patient arrived in ED. bp1 01:19 Arm band placed on. sg 01:20 Triage completed. sg 01:21 Aidan Carranza MD is Attending Physician. lorna 01:27 Damien Wilkins RN is Primary Nurse. mg2 01:28 Patient has correct armband on for positive identification. Pulse ox on. NIBP on. Door mg2 closed. 01:28 No provider procedures requiring assistance completed. Patient did not have IV access mg2 during this emergency room visit. Administered Medications: 02:26 Drug: Benadryl 50 mg Route: PO; mg2 02:46 Follow up: Response: No adverse reaction; Medication administered at discharge. mg2 02:26 Drug: predniSONE 60 mg Route: PO; mg2 02:46 Follow up: Response: No adverse reaction; Medication administered at discharge. mg2 Outcome: 02:24 Discharge ordered by . lorna 02:41 Patient left the ED. sg 02:46 Discharged to home via wheelchair. mg2 02:46 Condition: stable 02:46 Discharge instructions given to patient, Instructed on discharge instructions, follow up and referral plans. medication usage, Demonstrated understanding of instructions, follow-up care, medications, Prescriptions given X 4. Signatures: Holden Segovia RN RN sg Anderson, Corey, MD MD cha Gardose Damien, NICOL RN mg2 Sakina Yung bp1
[2020-02-10] MEDS ORDERED: predniSONE 20 MG TAB ONE (02:35)
[2020-02-10] MEDS ORDERED: DIPHENHYDRAMINE 25 MG TAB/CAP ONE (02:35)
[2020-02-10 02:46] VITALS: TEMP 98.3
[2020-02-10 02:47] VITALS: BP 114/71; O2SAT 99
== END 2020-02-10 02:41 | disposition home or self-care (01) ==
LOC: ER 01:16
DX: R21 Rash and other nonspecific skin eruption (principal); T63.461A Toxic effect of venom of wasps, accidental (unintentional), initial encounter; Z88.0 Allergy status to penicillin
CPT/HCPCS: 99283; J7512

== ENCOUNTER 2020-03-03 08:31 | Emergency (ER) | payer OTHER, SELFPAY ==
--- NOTE | 2020-03-03 08:49 | ER ---
Nurse's Notes [facility] Name: Holden Morris Age: 35 yrs Sex: Male : 1985 Arrival Date: 03/03/2020 Time: 08:33 Bed 13 Private MD: Diagnosis: Superficial thrombophlebitis;Allergic reaction Presentation: 03/03 08:41 Chief complaint: Patient states: woke up and felt like his throat was swollen and iw painful, also stated he had hives to his left AC. Coronavirus screen: At this time, the client does not indicate any symptoms associated with coronavirus-19. Ebola Screen: Patient negative for fever greater than or equal to 101.5 degrees Fahrenheit, and additional compatible Ebola Virus Disease symptoms Patient denies exposure to infectious person. Patient denies travel to an Ebola-affected area in the 21 days before illness onset. No symptoms or risks identified at this time. Anaphylaxis evaluation, no signs or symptoms of anaphylaxis were noted. Initial Sepsis Screen: Does the patient meet any 2 criteria? No. Patient's initial sepsis screen is negative. Does the patient have a suspected source of infection? No. Patient's initial sepsis screen is negative. Risk Assessment: Do you want to hurt yourself or someone else? Patient reports no desire to harm self or others. 08:41 Method Of Arrival: Ambulatory iw 08:41 Acuity: STONE 4 iw 09:24 Onset of symptoms was March 03, 2020. jr10 Historical: - Allergies: 08:44 PENICILLINS; iw - PMHx: 08:44 Anxiety; Asthma; GERD; Migraines; iw - PSHx: 08:44 left cornea transplant; iw - Immunization history:: Adult Immunizations up to date. - Family history:: not pertinent. - Social history:: Smoking status: unknown. - Hospitalizations: : No recent hospitalization is reported. Screenin:00 Abuse screen: Denies threats or abuse. Denies injuries from another. Nutritional jr10 screening: No deficits noted. Tuberculosis screening: No symptoms or risk factors identified. Fall Risk None identified. Assessment: 09:00 General: Appears in no apparent distress. Behavior is calm, cooperative, appropriate jr10 for age. Pain: Complains of pain in left aspect of posterior pharynx and right aspect of posterior pharynx Pain began 0500 this morning. Respiratory: Airway is patent via oral airway Respiratory effort is even, unlabored, Respiratory pattern is regular, symmetrical, pt speaking in complete clear coherent sentences, no drooling noted, pt has complete control of secretions; denies any trouble swallowing or breathing at present Breath sounds are clear bilaterally. EENT: Throat is reddened Reports sore throat with trouble swallowing that started this morning, reports difficulty swallowing has since resolved. Derm: No deficits noted. No signs and/or symptoms reported regarding the dermatologic system. 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 Vital Signs: 08:44 BP 140 / 103; Pulse 89; Resp 16; Temp 97.8; Pulse Ox 97% on R/A; iw ED Course: 08:33 Patient arrived in ED. as 08:35 Jose Ramon Tinajero MD is Attending Physician. rn 08:43 Triage completed. iw 08:43 Yuliana Han RN is Primary Nurse. jr10 09:00 Patient has correct armband on for positive identification. Bed in low position. Call jr10 light in reach. Side rails up X 1. Pulse ox on. NIBP on. 09:24 No provider procedures requiring assistance completed. Patient did not have IV access jr10 during this emergency room visit. Administered Medications: 09:06 Drug: predniSONE 60 mg Route: PO; jr10 09:23 Follow up: Response: No adverse reaction jr10 09:06 Drug: Benadryl 25 mg Route: PO; jr10 09:23 Follow up: Response: No adverse reaction jr10 Outcome: 08:49 Discharge ordered by . rn 09:24 Discharged to home ambulatory. jr10 09:24 Condition: stable 09:24 Discharge instructions given to patient, Instructed on discharge instructions, follow up and referral plans. Demonstrated understanding of instructions, follow-up care, medications, Prescriptions given X 1. 09:25 Patient left the ED. jr10 Signatures: Sadia Oliver Irene, RN RN Jose Ramon Tinajero MD MD rn Rivera, Jessica, RN RN jrJonathan
--- NOTE | 2020-03-03 08:49 | EDPHYS ---
Physician Documentation [facility] Name: Holden Morris Age: 35 yrs Sex: Male : 1985 Arrival Date: 03/03/2020 Time: 08:33 Bed 13 Private MD: ED Physician Jose Ramon Tinajero HPI: 03/03 08:45 This 35 yrs old Black Male presents to ER via Ambulatory with complaints of Allergic rn Reaction. 08:45 The patient presents with itching, rash. Onset: The symptoms/episode began/occurred rn this morning. Possible causes: The patient has no known obvious cause for the symptoms. Severity of symptoms: At their worst the symptoms were mild in the emergency department the symptoms have improved. The patient has not experienced similar symptoms in the past. Reports woke up this morning, felt like throat swollen, has now improved on its own, and noticed "splotches" and itching near site where he donated plasma yesterday. Denies previous allergic reaction. Didn't want to go to work and have something happen so called in and came here. No sob. no swelling. Throat sensation improved. Reports redness to left arm improved as well. . Historical: - Allergies: 08:44 PENICILLINS; iw - PMHx: 08:44 Anxiety; Asthma; GERD; Migraines; iw - PSHx: 08:44 left cornea transplant; iw - Immunization history:: Adult Immunizations up to date. - Family history:: not pertinent. - Social history:: Smoking status: unknown. - Hospitalizations: : No recent hospitalization is reported. ROS: 08:45 Constitutional: Negative for fever, chills, and weight loss, Eyes: Negative for injury, rn pain, redness, and discharge, Cardiovascular: Negative for chest pain, palpitations, and edema, Respiratory: Negative for shortness of breath, cough, wheezing, and pleuritic chest pain, Abdomen/GI: Negative for abdominal pain, nausea, vomiting, diarrhea, and constipation, MS/Extremity: Negative for injury and deformity, Skin: + "splotches and itching". Neuro: Negative for headache, weakness, numbness, tingling, and seizure. Exam: 08:45 Constitutional: This is a well developed, well nourished patient who is awake, alert, rn and in no acute distress. Head/Face: Normocephalic, atraumatic. Eyes: Pupils equal round and reactive to light, extra-ocular motions intact. Lids and lashes normal. Conjunctiva and sclera are non-icteric and not injected. Cornea within normal limits. Periorbital areas with no swelling, redness, or edema. ENT: no stridor Neck: Trachea midline, no thyromegaly or masses palpated, and no cervical lymphadenopathy. Supple, full range of motion without nuchal rigidity, or vertebral point tenderness. No Meningismus. Cardiovascular: Regular rate and rhythm. No pulse deficits. Respiratory: Speaking full sentences, unlabored Skin: Warm, dry MS/ Extremity: Pulses equal, no cyanosis. Neurovascular intact. Full, normal range of motion. Equal circumference. Neuro: Awake and alert, GCS 15, oriented to person, place, time, and situation. Cranial nerves II-XII grossly intact. Motor strength 5/5 in all extremities. Sensory grossly intact. Cerebellar exam normal. Normal gait. Vital Signs: 08:44 BP 140 / 103; Pulse 89; Resp 16; Temp 97.8; Pulse Ox 97% on R/A; iw MDM: 08:35 Patient medically screened. rn 08:45 Differential diagnosis: urticaria, thrombophlebitis. Data reviewed: vital signs, nurses rn notes, and as a result, I will discharge patient. Counseling: I had a detailed discussion with the patient and/or guardian regarding: the historical points, exam findings, and any diagnostic results supporting the discharge/admit diagnosis, the need for outpatient follow up, to return to the emergency department if symptoms worsen or persist or if there are any questions or concerns that arise at home. Special discussion: I discussed with the patient/guardian in detail that at this point there is no indication for admission to the hospital. It is understood, however, that if the symptoms persist or worsen the patient needs to return immediately for re-evaluation. Administered Medications: 09:06 Drug: predniSONE 60 mg Route: PO; : Follow up: Response: No adverse reaction jr10 09:06 Drug: Benadryl 25 mg Route: PO; :23 Follow up: Response: No adverse reaction 10 Disposition: 03/03/20 08:49 Discharged to Home. Impression: Superficial thrombophlebitis, Allergic reaction. - Condition is Stable. - Discharge Instructions: Hives, Peripheral Intravenous Catheter Placement, Adult, Care After, Form - Excuse from Work, School, or Physical Activity. - Prescriptions for Prednisone 20 mg Oral Tablet - take 3 tablet by ORAL route once daily for 5 days; 15 tablet. - Medication Reconciliation Form, Thank You Letter, Antibiotic Education, Prescription Opioid Use form. - Follow up: Private Physician; When: As needed; Reason: Recheck today's complaints, Re-evaluation by your physician. - Problem is new. - Symptoms have improved. Signatures: Keshia Vernon RN RN iw Nieto, Roman, MD MD rn Rivera, Jessica, RN RN jr10 Corrections: (The following items were deleted from the chart) 09:25 08:49 03/03/2020 08:49 Discharged to Home. Impression: Superficial thrombophlebitis; jr10 Allergic reaction. Condition is Stable. Forms are Medication Reconciliation Form, Thank You Letter, Antibiotic Education, Prescription Opioid Use. Follow up: Private Physician; When: As needed; Reason: Recheck today's complaints, Re-evaluation by your physician. Problem is new. Symptoms have improved. rn
[2020-03-03] MEDS ORDERED: DIPHENHYDRAMINE 25 MG TAB/CAP ONE (09:11)
[2020-03-03] MEDS ORDERED: predniSONE 20 MG TAB ONE (09:12)
== END 2020-03-03 09:25 | disposition home or self-care (01) ==
LOC: ER 08:31
DX: I80.8 Phlebitis and thrombophlebitis of other sites (principal); Z91.09 Other allergy status, other than to drugs and biological substances; Z88.0 Allergy status to penicillin
CPT/HCPCS: 99283; J7512

== ENCOUNTER 2020-03-18 10:08 | Emergency (ER) | payer SELFPAY ==
--- NOTE | 2020-03-18 10:40 | EDPHYS ---
Physician Documentation [facility] Name: Holden Morris Age: 35 yrs Sex: Male : 1985 Arrival Date: 03/18/2020 Time: 10:10 Bed 19 Private MD: EDUARDO Physician Aidan Carranza HPI: 03/18 10:35 This 35 yrs old Black Male presents to ER via Ambulatory with complaints of Back Pain. cp 10:35 The patient presents with pain that is acute, with no known mechanism of injury. The cp symptoms are located in the low back. Onset: The symptoms/episode began/occurred 2 day(s) ago. The pain does not radiate. Associated signs and symptoms: Pertinent negatives: abdominal pain, dysuria, fever, incontinence, numbness, urinary retention, weakness. Modifying factors: the patient symptoms are aggravated by movement, lifting and reaching with arms. Patient reports pain started Tuesday night. Denies injury. 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 Historical: - Allergies: 10:15 PENICILLINS; ll1 - PMHx: 10:15 Anxiety; Asthma; GERD; Migraines; ll1 - PSHx: 10:15 left cornea transplant; ll1 - Immunization history:: Flu vaccine status is unknown. - Social history:: Smoking status: Patient denies any tobacco usage or history of. Patient uses alcohol, only on a social basis. Patient/guardian denies using street drugs. ROS: 10:37 Constitutional: Negative for body aches, chills, fever, poor PO intake. cp 10:37 Cardiovascular: Negative for chest pain, palpitations. 10:37 Respiratory: Negative for cough, shortness of breath, wheezing. 10:37 Abdomen/GI: Negative for abdominal pain, nausea, vomiting, and diarrhea, constipation, bowel incontinence. 10:37 Back: Positive for pain at rest, pain with movement, of the low back area. 10:37 : Negative for urinary symptoms, difficulty urinating, bladder incontinence, testicular pain 10:37 Neuro: Negative for altered mental status, gait disturbance, headache, numbness, tingling, weakness. 10:37 All other systems are negative. Exam: 10:38 Head/Face: Normocephalic, atraumatic. cp 10:38 Constitutional: The patient appears in no acute distress, alert, awake, non-toxic, well developed, well nourished. 10:38 Chest/axilla: Inspection: normal, Palpation: is normal, no crepitus, no tenderness. cp 10:38 Cardiovascular: Rate: normal, Rhythm: regular. cp 10:38 Respiratory: the patient does not display signs of respiratory distress, Respirations: normal, no use of accessory muscles, no retractions, labored breathing, is not present. 10:38 Abdomen/GI: Exam negative for discomfort, distension, guarding, Inspection: abdomen appears normal. 10:38 Back: pain, that is mild, of the low back area, left mid back and right mid back, ROM is normal. 10:38 Neuro: Orientation: to person, place \T\ time. Mentation: is normal, Motor: moves all fours, strength is normal, Sensation: is normal, Gait: is steady, Deep tendon reflexes are 2+ (normal) in the right patellar, right Achilles, left patellar and left Achilles. Vital Signs: 10:16 BP 130 / 97; Pulse 89; Resp 18; Temp 97.7; Pulse Ox 97% ; ll1 11:06 BP 137 / 89; Pulse 75; Resp 16; Temp 97.8; Pulse Ox 98% ; bp MDM: 10:20 Patient medically screened. lorna 10:40 Differential diagnosis: Cholelithiasis Fracture ruptured disc, Ureterolithiasis cp vertebral fracture, strain. 10:40 Data reviewed: vital signs, nurses notes, and as a result, I will discharge patient. cp Counseling: I had a detailed discussion with the patient and/or guardian regarding: the historical points, exam findings, and any diagnostic results supporting the discharge/admit diagnosis, to return to the emergency department if symptoms worsen or persist or if there are any questions or concerns that arise at home. Administered Medications: No medications were administered Disposition: 10:45 Chart complete. cp 16:03 Co-signature as Attending Physician, Aidan Carranza MD I agree with the assessment and lorna plan of care. Disposition: 03/18/20 10:40 Discharged to Home. Impression: Low back pain. - Condition is Stable. - Discharge Instructions: Back Pain, Adult, Back Injury Prevention, [id number], Heat Therapy, Back Exercises. - Prescriptions for Cyclobenzaprine 10 mg Oral Tablet - take 1 tablet by ORAL route every 8 hours As needed no driving while taking medication; 20 tablet. Diclofenac Sodium 75 mg Oral Tablet, Delayed Release (E.C.) - take 1 tablet by ORAL route 2 times per day; 20 tablet. - Work release form, Medication Reconciliation Form, Thank You Letter, Antibiotic Education, Prescription Opioid Use form. - Follow up: Private Physician; When: 2 - 3 days; Reason: Worsening of condition. - Problem is new. - Symptoms are unchanged. Signatures: Aidan Carranza MD MD cha Page, Corey, PA PA cp Aurelio Atkins RN RN Mamta Begum RN RN ll1 Corrections: (The following items were deleted from the chart) 11:08 10:40 03/18/2020 10:40 Discharged to Home. Impression: Low back pain. Condition is bp Stable. Prescriptions for Cyclobenzaprine 10 mg Oral Tablet - take 1 tablet by ORAL route every 8 hours As needed no driving while taking medication; 20 tablet, Diclofenac Sodium 75 mg Oral Tablet, Delayed Release (E.C.) - take 1 tablet by ORAL route 2 times per day; 20 tablet. and Forms are Medication Reconciliation Form, Thank You Letter, Antibiotic Education, Prescription Opioid Use. Follow up: Private Physician; When: 2 - 3 days; Reason: Worsening of condition. Problem is new. Symptoms are unchanged. cp
--- NOTE | 2020-03-18 10:40 | ER ---
Nurse's Notes [facility] Name: Holden Morris Age: 35 yrs Sex: Male : 1985 Arrival Date: 03/18/2020 Time: 10:10 Bed 19 Private MD: Diagnosis: Low back pain Presentation: 03/18 10:16 Chief complaint: Patient states: Low back pain, worse with movement and stretching. ll1 Unable to get specifics, patient was on cell phone entire triage process. Coronavirus screen: Client denies travel out of the [place] in the last 14 days. At this time, the client does not indicate any symptoms associated with coronavirus-19. Ebola Screen: Patient denies travel to an Ebola-affected area in the 21 days before illness onset. Initial Sepsis Screen: Does the patient meet any 2 criteria? No. Patient's initial sepsis screen is negative. Risk Assessment: Do you want to hurt yourself or someone else? Patient reports no desire to harm self or others. Onset of symptoms. 10:16 Method Of Arrival: Ambulatory ll1 10:16 Acuity: STONE 4 ll1 10:18 Onset of symptoms is unknown. ll1 11:08 Initial Sepsis Screen: Does the patient have a suspected source of infection? No. bp Patient's initial sepsis screen is negative. Triage Assessment: 10:19 General: Appears in no apparent distress. comfortable, Behavior is cooperative, bp appropriate for age, anxious. Pain: Complains of pain in back. EENT: No deficits noted. Neuro: No deficits noted. Cardiovascular: No deficits noted. Respiratory: No deficits noted. GI: No signs and/or symptoms were reported involving the gastrointestinal system. : No signs and/or symptoms were reported regarding the genitourinary system. Derm: No deficits noted. Musculoskeletal: Circulation, motion, and sensation intact. Range of motion: intact in all extremities. Historical: - Allergies: 10:15 PENICILLINS; ll1 - PMHx: 10:15 Anxiety; Asthma; GERD; Migraines; ll1 - PSHx: 10:15 left cornea transplant; ll1 - Immunization history:: Flu vaccine status is unknown. - Social history:: Smoking status: Patient denies any tobacco usage or history of. Patient uses alcohol, only on a social basis. Patient/guardian denies using street drugs. Screenin:20 Abuse screen: Denies threats or abuse. Denies injuries from another. Nutritional bp screening: No deficits noted. Tuberculosis screening: No symptoms or risk factors identified. Fall Risk None identified. Assessment: 10:19 General: SEE TRIAGE NOTE. Neuro: Level of Consciousness is awake, alert, obeys bp commands, Oriented to person, place, time, situation, Appropriate for age Gait is steady. 11:07 Reassessment: PT D/C HOME AMBULATORY, DX WITH CHRONIC BACK PAIN. bp Vital Signs: 10:16 BP 130 / 97; Pulse 89; Resp 18; Temp 97.7; Pulse Ox 97% ; ll1 11:06 BP 137 / 89; Pulse 75; Resp 16; Temp 97.8; Pulse Ox 98% ; bp ED Course: 10:10 Patient arrived in ED. ag5 10:15 Arm band placed on Patient placed in an exam room, on a stretcher. ll1 10:17 Triage completed. ll1 10:18 Aurelio Atkins, NICOL is Primary Nurse. bp 10:19 Aidan Pacheco PA is PHCP. cp 10:19 Aidan Carranza MD is Attending Physician. cp 10:20 Patient has correct armband on for positive identification. Bed in low position. Call bp light in reach. Side rails up X2. 11:07 No provider procedures requiring assistance completed. Patient did not have IV access bp during this emergency room visit. Administered Medications: No medications were administered Outcome: 10:40 Discharge ordered by MD. cp 11:07 Discharged to home ambulatory. bp 11:07 Condition: stable 11:07 Discharge instructions given to patient, Instructed on discharge instructions, follow up and referral plans. no driving heavy equipment, medication usage, Demonstrated understanding of instructions, follow-up care, medications, Prescriptions given X 2. 11:08 Patient left the ED. bp Signatures: Aidan Pacheco PA PA cp Aurelio Atkins, RN RN bp Sonia Haque ag5 Mamta Graham RN RN ll1 Corrections: (The following items were deleted from the chart) 10:18 10:16 Chief complaint: Patient states: Low back pain, worse with movement and ll1 stretching. ll1
[2020-03-18 11:15] VITALS: BP 137/89; TEMP 97.8; O2SAT 98
== END 2020-03-18 11:08 | disposition home or self-care (01) ==
LOC: ER 10:08
DX: M54.5 Low back pain (principal); Z88.0 Allergy status to penicillin
CPT/HCPCS: 99282

== ENCOUNTER 2020-04-16 11:09 | Emergency (ER) | payer SELFPAY ==
[2020-04-16 12:04] LABS: Urine Blood TRACE (NEG); Urine Glucose NEGATIVE (NEG); Urine Protein 1+ (NEG); Urine Specific Gravity >1.030 (1.005-1.030); Urine pH 5.5 (5.0-7.0)
[2020-04-16 12:34] LABS: Urine Bacteria <20 /HPF (NONE SEEN); Urine Culture Reflex Order NOT NEEDED; Urine Mucus 2+ /HPF (NONE SEEN)
[2020-04-16] MEDS ORDERED: NA CHLORIDE 0.9% 1,000 ML ONE (12:45)
[2020-04-16] MEDS ORDERED: KETOROLAC 30 MG/ML INJ ONE (12:45)
[2020-04-16 12:49] LABS: Absolute Lymphocytes (CBC) 2.6 K/uL (0.7-4.9); Basophils % 0.8 % (0-1.3); Hematocrit 41.1 % (39.6-49.0); Lymphocytes % 35.1 % (15.3-44.8); MPV 8.1 fL (7.6-11.3); RBC Red Blood Cell Count 5.52 M/uL (4.33-5.43)
[2020-04-16 12:51] LABS: ALT/SGPT 41 U/L (12-78); AST/SGOT 21 U/L (15-37); Alkaline Phosphatase 84 U/L (45-117); BUN Blood Urea Nitrogen 14 mg/dL (7-18); Bicarbonate 30 mmol/L (21-32); Bilirubin Direct 0.1 mg/dL (0-0.2); Bilirubin Total 0.5 mg/dL (0.2-1.0); Glucose Level 112 mg/dL (74-106); Lipase 46 U/L (73-393); Potassium 3.8 mmol/L (3.5-5.1); Protein, Total 8.1 g/dL (6.4-8.2); Sodium Level 140 mmol/L (136-145)
--- NOTE | 2020-04-16 13:18 | RAD REPORT ---
EXAM DESCRIPTION: CT - Abdomen Pelvis W Contrast - 04/16/2020 1:06 pm CLINICAL HISTORY: lower abdomen pain COMPARISON: Head C Spine Cap W Con dated 01/14/2018 TECHNIQUE: Biphasic, helical CT imaging of the abdomen and pelvis was performed following 100 ml non -ionic IV contrast. No oral contrast. All CT scans are performed using dose optimization technique as appropriate and may include automated exposure control or mA/KV adjustment according to patient size. FINDINGS: No suspicious findings in the lung bases. The liver, spleen, and pancreas show no suspicious findings. Gallbladder and biliary tree are also wi thout suspicious finding. Symmetric renal function is seen with no hydronephrosis or suspicious renal mass. No pyelonephritis o r acute parenchymal process. Urinary bladder is fully contracted limiting assessment. No bladder calc ulus seen. No adrenal abnormalities. No dilated bowel loops or bowel wall thickening. No suspicion for appendicitis. No free air, free flu id or inflammatory stranding. No hernia, mass or bulky lymphadenopathy. Patient has a few small sub centimeter mesenteric lymph nodes and a few sub centimeter periaortic lymph nodes. No suspicious bony findings. IMPRESSION: Contrast enhanced CT abdomen and pelvis showing no significant or suspicious finding.
[2020-04-16] MEDS ORDERED: DICYCLOMINE HCL 10 MG CAP ONE (13:21)
--- NOTE | 2020-04-16 13:37 | ER ---
Nurse's Notes [facility] Name: Holden Morris Age: 35 yrs Sex: Male : 1985 Arrival Date: 04/16/2020 Time: 11:15 Bed 5 Private MD: Diagnosis: Cystitis, unspecified with hematuria Presentation: 04/16 11:21 Chief complaint: Patient states: Lower back pain and lower abdominal pain, constant ca1 started this morning. Reports greenish brownish urine. Denies burning with urination, urinary urgency and frequency. Denies N/V/D/constipation. Coronavirus screen: Client denies travel out of the [place] in the last 14 days. At this time, the client does not indicate any symptoms associated with coronavirus-19. Ebola Screen: Patient negative for fever greater than or equal to 101.5 degrees Fahrenheit, and additional compatible Ebola Virus Disease symptoms Patient denies exposure to infectious person. Patient denies travel to an Ebola-affected area in the 21 days before illness onset. No symptoms or risks identified at this time. Initial Sepsis Screen: Does the patient meet any 2 criteria? No. Patient's initial sepsis screen is negative. Does the patient have a suspected source of infection? No. Patient's initial sepsis screen is negative. Risk Assessment: Do you want to hurt yourself or someone else? Patient reports no desire to harm self or others. Onset of symptoms was April 16, 2020. 11:21 Method Of Arrival: Ambulatory ca1 11:21 Acuity: STONE 3 ca1 Historical: - Allergies: 11:25 PENICILLINS; ca1 - Home Meds: 11:25 carvedilol Oral [Active]; ca1 - PMHx: 11:25 Anxiety; Asthma; GERD; Migraines; Hypertension; ca1 - PSHx: 11:25 left cornea transplant; ca1 - Immunization history:: Adult Immunizations up to date. - Social history:: Smoking status: Patient denies any tobacco usage or history of. Screenin:50 Abuse screen: Denies threats or abuse. Nutritional screening: No deficits noted. vg1 Tuberculosis screening: No symptoms or risk factors identified. Fall Risk Ambulatory Aid- None/Bed Rest/Nurse Assist (0 pts). Gait- Normal/Bed Rest/Wheelchair (0 pts) Mental Status- Oriented to own ability (0 pts). Total Anderson Fall Scale indicates No Risk (0-24 pts). Assessment: 11:50 General: Appears in no apparent distress. well groomed, Behavior is calm, cooperative. vg1 Pain: Complains of pain in Lower back Pain currently is 7 out of 10 on a pain scale. Pain began this morning. Neuro: Level of Consciousness is awake, alert, obeys commands, Oriented to person, place, time, situation. Cardiovascular: Patient's skin is warm and dry. Respiratory: Airway is patent Respiratory effort is even, unlabored, Respiratory pattern is regular, symmetrical. GI: No signs and/or symptoms were reported involving the gastrointestinal system. : Reports no pain upon urination, no burning, but states has mild pressure during urination. EENT: No signs and/or symptoms were reported regarding the EENT system. Derm: Skin is pink, warm \T\ dry. Musculoskeletal: Range of motion: intact in all extremities. 13:47 Reassessment: Patient appears in no apparent distress at this time. No changes from vg1 previously documented assessment. Patient and/or family updated on plan of care and expected duration. Pain level reassessed. Patient is alert, oriented x 3, equal unlabored respirations, skin warm/dry/pink. patient states no change in pain level, 7/10. Vital Signs: 11:21 BP 131 / 80; Pulse 73; Resp 16 S; Temp 97.5(TE); Pulse Ox 99% on R/A; Weight 97.52 kg ca1 (R); Height 5 ft. 9 in. (175.26 cm) (R); Pain 7/10; 11:50 BP 129 / 84; Pulse 68; Resp 12; Pulse Ox 98% on R/A; Pain 7/10; vg1 12:36 BP 125 / 81; Pulse 67; Resp 12; Pulse Ox 100% on R/A; Pain 7/10; vg1 13:42 BP 137 / 90; Pulse 76; Resp 12; Pulse Ox 100% on R/A; Pain 7/10; vg1 11:21 Body Mass Index 31.75 (97.52 kg, 175.26 cm) ca1 ED Course: 11:15 Patient arrived in ED. ds1 11:24 Triage completed. ca1 11:25 Arm band placed on right wrist. ca1 11:50 No provider procedures requiring assistance completed. vg1 11:51 Lis Hawthorne, RN is Primary Nurse. vg1 12:10 Aidan Pacheco PA is PHCP. cp 12:10 Phillip Parsons MD is Attending Physician. cp 12:13 Nurse Practitioner and/or Physician Rn Building to see patient. vg1 12:20 Patient has correct armband on for positive identification. Bed in low position. Call sv light in reach. Door closed. Head of bed elevated. 12:20 Inserted saline lock: 20 gauge in right antecubital area, using aseptic technique. sv Blood collected. Flushed right antecubital with 5 ml normal saline. 13:[address] via wheelchair. vg1 13:05 CT Abd/Pelvis - IV Contrast Only In Process Unspecified. EDMS 13:47 IV discontinued, intact, bleeding controlled, No redness/swelling at site. Pressure vg1 dressing applied. Administered Medications: 12:39 Drug: TORadol - Ketorolac 15 mg Route: IVP; Site: right antecubital; vg1 13:12 Follow up: Response: No adverse reaction vg1 12:39 Drug: NS 0.9% 1000 ml Route: IV; Rate: 1 bolus; Site: right antecubital; vg1 14:10 Follow up: Response: No adverse reaction; IV Status: Completed infusion; IV Intake: sv 1000ml 13:12 Drug: Bentyl 20 mg Route: PO; vg1 13:52 Follow up: Response: No adverse reaction vg1 Intake: 14:10 IV: 1000ml; Total: 1000ml. sv Outcome: 13:37 Discharge ordered by MD. cp 13:47 Discharged to home ambulatory. vg1 13:47 Condition: good 13:47 Discharge instructions given to patient, Instructed on discharge instructions, follow up and referral plans. medication usage, Demonstrated understanding of instructions, follow-up care, medications, Prescriptions given X 2. 13:54 Patient left the ED. vg1 Signatures: Dispatcher [employer] EDMS Giuliana Saucedo RN RN Theodora Torres ds1 Aidan Pacheco PA PA cp Acob, Cheryl, RN RN [facility] Lis Hawthorne RN RN vg1 Corrections: (The following items were deleted from the chart) 12:03 11:58 General: Appears in no apparent distress. well groomed, Behavior is calm, vg1 cooperative, vg1 12:03 11:58 Pain: Complains of pain in Lower back Pain currently is 7 out of 10 on a pain vg1 scale. Pain began this morning vg1 12:03 11:58 Neuro: Level of Consciousness is awake, alert, obeys commands, Oriented to vg1 person, place, time, situation, vg1 12:03 11:58 Cardiovascular: Patient's skin is warm and dry. vg1 vg1 12:03 11:58 Respiratory: Airway is patent Respiratory effort is even, unlabored, Respiratory vg1 pattern is regular, symmetrical, vg1 12:03 11:58 GI: No signs and/or symptoms were reported involving the gastrointestinal system. vg1 vg1 12:03 11:58 : Reports no pain upon urination, no burning, but states has mild pressure vg1 during urination vg1 12:03 11:58 EENT: No signs and/or symptoms were reported regarding the EENT system. vg1 vg1 12:03 11:58 Derm: Skin is pink, warm \T\ dry. vg1 vg1 12:03 11:58 Musculoskeletal: Range of motion: intact in all extremities, vg1 vg1 13:56 11:47 IV discontinued, intact, bleeding controlled, No redness/swelling at site. vg1 Pressure dressing applied, vg1 14:10 13:52 Response: No adverse reaction; IV Status: Completed infusion vg1 sv
--- NOTE | 2020-04-16 13:37 | EDPHYS ---
Physician Documentation [facility] Name: Holden Morris Age: 35 yrs Sex: Male : 1985 Arrival Date: 04/16/2020 Time: 11:15 Bed 5 Private MD: ED Physician Phillip Parsons HPI: 04/16 12:20 This 35 yrs old Black Male presents to ER via Ambulatory with complaints of Dark cp Colored Urine, Lower Back Pain, Abdominal Pain. 12:20 The patient presents with abdominal pain in the lower abdomen. cp 12:20 Onset: The symptoms/episode began/occurred this morning. Associated signs and symptoms: cp Pertinent positives: lower back pain, 1 episode of diarrhea, Pertinent negatives: nausea and vomiting, chest pain, constipation, dysuria, fever, testicular pain. The symptoms are described as crampy. Severity of pain: in the emergency department the pain is a 7 / 10. Historical: - Allergies: 11:25 PENICILLINS; ca1 - Home Meds: 11:25 carvedilol Oral [Active]; ca1 - PMHx: 11:25 Anxiety; Asthma; GERD; Migraines; Hypertension; ca1 - PSHx: 11:25 left cornea transplant; ca1 - Immunization history:: Adult Immunizations up to date. - Social history:: Smoking status: Patient denies any tobacco usage or history of. ROS: 12:25 Constitutional: Negative for body aches, chills, fever, poor PO intake. cp 12:25 Eyes: Negative for injury, pain, redness, and discharge. cp 12:25 ENT: Negative for ear pain, sore throat. 12:25 Cardiovascular: Negative for chest pain. 12:25 Respiratory: Negative for cough, shortness of breath, wheezing. 12:25 Abdomen/GI: Positive for abdominal pain, of the lower abdomen, Negative for vomiting, constipation, black/tarry stool, rectal bleeding. 12:25 Back: Positive for pain at rest, of the low back area. 12:25 : Positive for dark colored urine, Negative for flank pain, difficulty urinating, testicular pain 12:25 Neuro: Negative for altered mental status, headache, weakness. 12:25 All other systems are negative. Exam: 12:30 Constitutional: The patient appears in no acute distress, alert, awake, non-toxic, well cp developed, well nourished. 12:30 Head/Face: Normocephalic, atraumatic. cp 12:30 Eyes: Periorbital structures: appear normal, Conjunctiva: normal, no exudate, no injection, Lids and lashes: appear normal, bilaterally. 12:30 ENT: External ear(s): are unremarkable, Nose: is normal, Posterior pharynx: Airway: no evidence of obstruction, patent. 12:30 Chest/axilla: Inspection: normal, Palpation: is normal, no crepitus, no tenderness. 12:30 Cardiovascular: Rate: normal, Rhythm: regular. 12:30 Respiratory: the patient does not display signs of respiratory distress, Respirations: normal, no use of accessory muscles, no retractions, labored breathing, is not present, Breath sounds: are clear throughout, no decreased breath sounds, no wheezing. 12:30 Abdomen/GI: Inspection: abdomen appears normal, Bowel sounds: active, all quadrants, Palpation: soft, in all quadrants, moderate abdominal tenderness, in the suprapubic area, rebound tenderness, is not appreciated. 12:30 Back: pain, that is mild, of the low back area, ROM is normal, CVA tenderness, is absent. Vital Signs: 11:21 BP 131 / 80; Pulse 73; Resp 16 S; Temp 97.5(TE); Pulse Ox 99% on R/A; Weight 97.52 kg ca1 (R); Height 5 ft. 9 in. (175.26 cm) (R); Pain 7/10; 11:50 BP 129 / 84; Pulse 68; Resp 12; Pulse Ox 98% on R/A; Pain 7/10; vg1 12:36 BP 125 / 81; Pulse 67; Resp 12; Pulse Ox 100% on R/A; Pain 7/10; vg1 13:42 BP 137 / 90; Pulse 76; Resp 12; Pulse Ox 100% on R/A; Pain 7/10; vg1 11:21 Body Mass Index 31.75 (97.52 kg, 175.26 cm) ca1 MDM: 12:17 Patient medically screened. cp 13:36 Data reviewed: vital signs, nurses notes, lab test result(s), radiologic studies, CT cp scan, and as a result, I will discharge patient. 13:36 Differential diagnosis: appendicitis, diverticulitis, Pyelonephritis, Testicular cp Torsion, Ureterolithiasis, urinary tract infection, colitis. Special discussion: Based on the patient's Hx, exam, and Dx evaluation, there is no indication for emergent surgery or inpatient Tx. It is understood by the patient/guardian that if the Sx's persist or worsen they need to return immediately for re-evaluation. 04/16 11:50 Order name: Urine Dipstick--Ancillary (enter results); Complete Time: 12:17 bd 04/16 13:31 Interpretation: Normal except: USPGR >1.030; UBLD TRACE; UPROT 1+. cp 04/16 12:18 Order name: Urine Microscopic Only; Complete Time: 12:38 cp 04/16 12:53 Interpretation: Normal except: URBC 5-10. cp 04/16 12:18 Order name: Basic Metabolic Panel; Complete Time: 12:52 cp 04/16 12:52 Interpretation: Normal except: GLUC 112. cp 04/16 12:18 Order name: CBC with Diff; Complete Time: 12:52 cp 04/16 12:53 Interpretation: Normal except: RBC 5.52; HGB 12.9; MCV 74.4; MCH 23.4; MCHC 31.4. cp 04/16 12:18 Order name: Hepatic Function; Complete Time: 12:52 cp 04/16 12:18 Order name: Lipase; Complete Time: 12:52 cp 04/16 12:18 Order name: IV Saline Lock; Complete Time: 12:28 cp 04/16 12:18 Order name: Labs collected and sent; Complete Time: 12:28 cp 04/16 12:38 Order name: CT Abd/Pelvis - IV Contrast Only; Complete Time: 13:30 cp Administered Medications: 12:39 Drug: TORadol - Ketorolac 15 mg Route: IVP; Site: right antecubital; vg1 13:12 Follow up: Response: No adverse reaction vg1 12:39 Drug: NS 0.9% 1000 ml Route: IV; Rate: 1 bolus; Site: right antecubital; vg1 14:10 Follow up: Response: No adverse reaction; IV Status: Completed infusion; IV Intake: sv 1000ml 13:12 Drug: Bentyl 20 mg Route: PO; vg1 13:52 Follow up: Response: No adverse reaction vg1 Disposition: 14:48 Co-signature as Attending Physician, Phillip Parsons MD I agree with the assessment and kdr plan of care. Disposition: 04/16/20 13:37 Discharged to Home. Impression: Cystitis, unspecified with hematuria. - Condition is Stable. - Discharge Instructions: Abdominal Pain, Adult, Urinary Tract Infection, Adult. - Prescriptions for Bentyl 20 mg Oral Tablet - take 2 tablets by ORAL route every 6 hours As needed; 30 tablet. Cipro 500 mg Oral Tablet - take 1 tablet by ORAL route every 12 hours for 7 days; 14 tablet. - Work release form, Medication Reconciliation Form, Thank You Letter, Antibiotic Education, Prescription Opioid Use form. - Follow up: Private Physician; When: 2 - 3 days; Reason: Worsening of condition. - Problem is new. - Symptoms have improved. Signatures: Dispatcher [employer] EDMS Phillip Parsons MD MD kdr Aidan Pacheco PA PA cp Shakeel, Margaret, RN RN ca1 Lis Hawthorne RN RN vg1 Lewis, Giuliana CAMARENA sv Corrections: (The following items were deleted from the chart) 13:54 13:37 04/16/2020 13:37 Discharged to Home. Impression: Cystitis, unspecified with vg1 hematuria. Condition is Stable. Forms are Medication Reconciliation Form, Thank You Letter, Antibiotic Education, Prescription Opioid Use. Follow up: Private Physician; When: 2 - 3 days; Reason: Worsening of condition. Problem is new. Symptoms have improved. cp
[2020-04-16 14:37] VITALS: TEMP 97.5
[2020-04-16 14:40] VITALS: O2SAT 100
[2020-04-16 14:41] VITALS: BP 137/90
== END 2020-04-16 13:54 | disposition home or self-care (01) ==
LOC: ER 11:09
DX: N30.91 Cystitis, unspecified with hematuria (principal); I10 Essential (primary) hypertension; Z88.0 Allergy status to penicillin
CPT/HCPCS: 36415; 74177; 80048; 80076; 81003; 81015; 83690; 85025; J7030; Q9967

== ENCOUNTER 2020-05-12 16:36 | Emergency (ER) | payer SELFPAY ==
--- NOTE | 2020-05-12 17:50 | EDPHYS ---
Physician Documentation [facility] Name: Holden Morris Age: 35 yrs Sex: Male : 1985 Arrival Date: 05/12/2020 Time: 16:38 Bed 24 Private MD: ED Physician Phillip Parsons HPI: 05/12 17:09 This 35 yrs old Black Male presents to ER via Ambulatory with complaints of Urinary snw Problem. 17:09 The patient presents with urinary symptoms, urinary frequency. Onset: The snw symptoms/episode began/occurred gradually, 3 week(s) ago, and became persistent. Associated signs and symptoms: Pertinent positives: low back pain. Severity of symptoms: At their worst the symptoms were mild, moderate, in the emergency department the symptoms are unchanged. The patient has experienced a previous episode. seen in ed 3 weeks ago for same. denies sexual intercourse > 1 year. Historical: - Allergies: 16:55 PENICILLINS; ca1 - Home Meds: 16:55 carvedilol Oral [Active]; ca1 - PMHx: 16:55 Asthma; GERD; Hypertension; Anxiety; Migraines; ca1 - PSHx: 16:55 left cornea transplant; ca1 - Immunization history:: Adult Immunizations up to date, Flu vaccine is not up to date. - Social history:: Smoking status: Patient denies any tobacco usage or history of. ROS: 17:07 Constitutional: Negative for fever, chills, and weight loss, Eyes: Negative for injury, snw pain, redness, and discharge, ENT: Negative for injury, pain, and discharge, Neck: Negative for injury, pain, and swelling, Cardiovascular: Negative for chest pain, palpitations, and edema, Respiratory: Negative for shortness of breath, cough, wheezing, and pleuritic chest pain, Abdomen/GI: Negative for abdominal pain, nausea, vomiting, diarrhea, and constipation, MS/Extremity: Negative for injury and deformity, Skin: Negative for injury, rash, and discoloration, Neuro: Negative for headache, weakness, numbness, tingling, and seizure, Psych: Negative for depression, anxiety, suicide ideation, homicidal ideation, and hallucinations. 17:07 Back: Positive for pain at rest, pain with movement. 17:07 : Positive for urinary frequency. Exam: 17:07 Constitutional: This is a well developed, well nourished patient who is awake, alert, snw and in no acute distress. Head/Face: Normocephalic, atraumatic. Eyes: Pupils equal round and reactive to light, extra-ocular motions intact. Lids and lashes normal. Conjunctiva and sclera are non-icteric and not injected. Cornea within normal limits. Periorbital areas with no swelling, redness, or edema. ENT: Nares patent. No nasal discharge, no septal abnormalities noted. Tympanic membranes are normal and external auditory canals are clear. Oropharynx with no redness, swelling, or masses, exudates, or evidence of obstruction, uvula midline. Mucous membranes moist. Neck: Trachea midline, no thyromegaly or masses palpated, and no cervical lymphadenopathy. Supple, full range of motion without nuchal rigidity, or vertebral point tenderness. No Meningismus. Chest/axilla: Normal chest wall appearance and motion. Nontender with no deformity. No lesions are appreciated. Cardiovascular: Regular rate and rhythm with a normal S1 and S2. No gallops, murmurs, or rubs. Normal PMI, no JVD. No pulse deficits. Respiratory: Lungs have equal breath sounds bilaterally, clear to auscultation and percussion. No rales, rhonchi or wheezes noted. No increased work of breathing, no retractions or nasal flaring. Abdomen/GI: Soft, non-tender, with normal bowel sounds. No distension or tympany. No guarding or rebound. No evidence of tenderness throughout. Back: No spinal tenderness. No costovertebral tenderness. Full range of motion. Mild lower back tenderness all the way across Skin: Warm, dry with normal turgor. Normal color with no rashes, no lesions, and no evidence of cellulitis. MS/ Extremity: Pulses equal, no cyanosis. Neurovascular intact. Full, normal range of motion. Neuro: Awake and alert, GCS 15, oriented to person, place, time, and situation. Cranial nerves II-XII grossly intact. Motor strength 5/5 in all extremities. Sensory grossly intact. Cerebellar exam normal. Normal gait. Psych: Awake, alert, with orientation to person, place and time. Behavior, mood, and affect are within normal limits. Vital Signs: 16:52 BP 160 / 90; Pulse 86; Resp 16 S; Temp 97.3(TE); Pulse Ox 98% on R/A; Weight 97.52 kg ca1 (R); Height 5 ft. 10 in. (177.80 cm) (R); Pain 8/10; 17:18 BP 126 / 76 RA (auto/reg); Pulse 93; Resp 18; Pulse Ox 98% ; Pain 8/10; jp3 16:52 Body Mass Index 30.85 (97.52 kg, 177.80 cm) ca1 MDM: 17:07 Patient medically screened. snw 17:56 Data reviewed: vital signs, nurses notes. Data interpreted: Pulse oximetry: on room air snw is 98 %. Interpretation: normal. Counseling: I had a detailed discussion with the patient and/or guardian regarding: the historical points, exam findings, and any diagnostic results supporting the discharge/admit diagnosis, lab results, the need for outpatient follow up, to return to the emergency department if symptoms worsen or persist or if there are any questions or concerns that arise at home. Special discussion: Based on the history and exam findings, there is no indication for further emergent testing or inpatient evaluation. I discussed with the patient/guardian the need to see the primary care provider for further evaluation of the symptoms. I discussed with the patient/guardian the need to see the urologist for further evaluation of the symptoms. 05/12 17:05 Order name: Urine Culture snw Administered Medications: 18:00 Drug: Rocephin (cefTRIAXone) 1 grams Route: IM; Site: right gluteus; jd3 18:21 Follow up: Response: No adverse reaction jd3 Disposition: 05/13 06:55 Co-signature as Attending Physician, Phillip Parsons MD I agree with the assessment and kdr plan of care. Disposition: 05/12/20 17:50 Discharged to Home. Impression: Low back pain, Dysuria. - Condition is Stable. - Discharge Instructions: Back Pain, Adult, Dysuria, Urinary Frequency, Adult, Rehydration, Adult, Heat Therapy. - Prescriptions for Keflex 500 mg Oral Capsule - take 1 capsule by ORAL route every 8 hours for 10 days; 30 capsule. Cyclobenzaprine 10 mg Oral Tablet - take 1 tablet by ORAL route every 8 hours As needed; 30 tablet. - Work release form, Medication Reconciliation Form, Thank You Letter, Antibiotic Education, Prescription Opioid Use form. - Follow up: Emergency Department; When: As needed; Reason: Worsening of condition. Follow up: Private Physician; When: 2 - 3 days; Reason: Recheck today's complaints, Continuance of care, Re-evaluation by your physician. Signatures: Dispatcher [employer] EDPhillip Suarez MD MD kdr Waters, Shelly, VIRTUAL CLASSROOM MANAGER-C VIRTUAL CLASSROOM MANAGER-Csnw Lobo Alvares RN RN jd3 Margaret Beckford RN RN ca1 Corrections: (The following items were deleted from the chart) 05/12 18:22 17:50 05/12/2020 17:50 Discharged to Home. Impression: Low back pain; Dysuria. jd3 Condition is Stable. Forms are Medication Reconciliation Form, Thank You Letter, Antibiotic Education, Prescription Opioid Use. Follow up: Emergency Department; When: As needed; Reason: Worsening of condition. Follow up: Private Physician; When: 2 - 3 days; Reason: Recheck today's complaints, Continuance of care, Re-evaluation by your physician. snw
--- NOTE | 2020-05-12 17:50 | ER ---
Nurse's Notes [facility] Name: Holden Morris Age: 35 yrs Sex: Male : 1985 Arrival Date: 05/12/2020 Time: 16:38 Bed 24 Private MD: Diagnosis: Low back pain;Dysuria Presentation: 05/12 16:52 Chief complaint: Patient states: Was here 3 weeks ago, was prescribed antibiotics and ca1 completed abx. I am still blood in the urine, still having lower back and lower abdominal pain. Denies N/V/D. Denies burning with urination. Reports urinary frequency. Denies fever. Coronavirus screen: Client denies travel out of the [place] in the last 14 days. At this time, the client does not indicate any symptoms associated with coronavirus-19. Ebola Screen: Patient negative for fever greater than or equal to 101.5 degrees Fahrenheit, and additional compatible Ebola Virus Disease symptoms Patient denies exposure to infectious person. Patient denies travel to an Ebola-affected area in the 21 days before illness onset. No symptoms or risks identified at this time. Initial Sepsis Screen: Does the patient meet any 2 criteria? No. Patient's initial sepsis screen is negative. Does the patient have a suspected source of infection? No. Patient's initial sepsis screen is negative. Risk Assessment: Do you want to hurt yourself or someone else? Patient reports no desire to harm self or others. Onset of symptoms was May 12, 2020. 16:52 Method Of Arrival: Ambulatory ca1 16:52 Acuity: STONE 3 ca1 Historical: - Allergies: 16:55 PENICILLINS; ca1 - Home Meds: 16:55 carvedilol Oral [Active]; ca1 - PMHx: 16:55 Asthma; GERD; Hypertension; Anxiety; Migraines; ca1 - PSHx: 16:55 left cornea transplant; ca1 - Immunization history:: Adult Immunizations up to date, Flu vaccine is not up to date. - Social history:: Smoking status: Patient denies any tobacco usage or history of. Screenin:24 Abuse screen: Denies threats or abuse. Nutritional screening: No deficits noted. jd3 Tuberculosis screening: No symptoms or risk factors identified. Fall Risk Ambulatory Aid- None/Bed Rest/Nurse Assist (0 pts). Gait- Normal/Bed Rest/Wheelchair (0 pts) Mental Status- Oriented to own ability (0 pts). Total Anderson Fall Scale indicates No Risk (0-24 pts). Assessment: 17:23 General: Appears in no apparent distress. uncomfortable, Behavior is calm, cooperative, jd3 appropriate for age. Pain: Complains of pain in back Quality of pain is described as aching. Neuro: Level of Consciousness is awake, alert, obeys commands, Oriented to person, place, time, situation. Cardiovascular: Denies chest pain, Capillary refill < 3 seconds Patient's skin is warm and dry. Respiratory: Airway is patent Respiratory effort is even, unlabored, Respiratory pattern is regular, symmetrical, Denies cough, shortness of breath. GI: No signs and/or symptoms were reported involving the gastrointestinal system. : Reports blood in urine. EENT: No signs and/or symptoms were reported regarding the EENT system. Derm: Skin is intact, Skin is dry, Skin is normal, Skin temperature is warm. Musculoskeletal: Circulation, motion, and sensation intact. Range of motion: intact in all extremities. 18:21 Reassessment: Patient appears in no apparent distress at this time. Patient and/or jd3 family updated on plan of care and expected duration. Pain level reassessed. Patient is alert, oriented x 3, equal unlabored respirations, skin warm/dry/pink. Vital Signs: 16:52 BP 160 / 90; Pulse 86; Resp 16 S; Temp 97.3(TE); Pulse Ox 98% on R/A; Weight 97.52 kg ca1 (R); Height 5 ft. 10 in. (177.80 cm) (R); Pain 8/10; 17:18 BP 126 / 76 RA (auto/reg); Pulse 93; Resp 18; Pulse Ox 98% ; Pain 8/10; jp3 16:52 Body Mass Index 30.85 (97.52 kg, 177.80 cm) ca1 ED Course: 16:38 Patient arrived in ED. as 16:54 Triage completed. ca1 16:55 Arm band placed on right wrist. ca1 16:58 Kajal Gonzalez FNP-C [facility]. snw 16:58 Phillip Parsons MD is Attending Physician. snw 17:18 Lobo Alvares RN is Primary Nurse. jd3 17:19 Patient maintains SpO2 saturation greater than 95% on room air. jp3 17:24 Patient has correct armband on for positive identification. Bed in low position. Call jd3 light in reach. Side rails up X 1. Pulse ox on. NIBP on. 18:21 No provider procedures requiring assistance completed. Patient did not have IV access jd3 during this emergency room visit. Administered Medications: 18:00 Drug: Rocephin (cefTRIAXone) 1 grams Route: IM; Site: right gluteus; jd3 18:21 Follow up: Response: No adverse reaction jd3 Outcome: 17:50 Discharge ordered by MD. wagner 18:21 Discharged to home ambulatory. jd3 18:21 Condition: stable 18:21 Discharge instructions given to patient, Instructed on discharge instructions, follow up and referral plans. medication usage, Demonstrated understanding of instructions, follow-up care, medications, Prescriptions given X 2. 18:22 Patient left the ED. jd3 Signatures: Kajal Gonzalez, HYDROGENATION OPERATOR-C HYDROGENATION OPERATOR-Sadia Schuster Jonathon RN RN jd3 Jose Alberto Arceo jp3 Margaret Beckford, RN RN ca1 Corrections: (The following items were deleted from the chart) 17:24 17:23 : No signs and/or symptoms were reported regarding the genitourinary system. [id number]
[2020-05-12] MEDS ORDERED: CEFTRIAXONE 1000 MG/VIAL ONE (18:04)
[2020-05-13 00:57] VITALS: TEMP 97.3; O2SAT 98
[2020-05-13 00:59] VITALS: BP 126/76
== END 2020-05-12 18:22 | disposition home or self-care (01) ==
LOC: ER 16:36
DX: R30.0 Dysuria (principal); I10 Essential (primary) hypertension; Z88.0 Allergy status to penicillin
CPT/HCPCS: 87086; 87088; 96372; 99284

== ENCOUNTER 2020-05-16 19:19 | Emergency (ER) | payer SELFPAY ==
[2020-05-16 19:57] LABS: Protime INR 1.02
[2020-05-16 19:59] LABS: Absolute Lymphocytes (CBC) 2.2 K/uL (0.7-4.9); Basophils % 0.9 % (0-1.3); Hematocrit 41.5 % (39.6-49.0); Lymphocytes % 31.4 % (15.3-44.8); MPV 7.9 fL (7.6-11.3); RBC Red Blood Cell Count 5.64 M/uL (4.33-5.43)
[2020-05-16 20:12] LABS: ALT/SGPT 56 U/L (12-78); AST/SGOT 30 U/L (15-37); Albumin 3.9 g/dL (3.4-5.0); Alkaline Phosphatase 77 U/L (45-117); BUN Blood Urea Nitrogen 17 mg/dL (7-18); Bicarbonate 26 mmol/L (21-32); Bilirubin Direct < 0.1 mg/dL (0-0.2); Bilirubin Total 0.2 mg/dL (0.2-1.0); Glucose Level 91 mg/dL (74-106); Magnesium 2.2 mg/dL (1.8-2.4); Potassium 4.2 mmol/L (3.5-5.1); Protein, Total 8.3 g/dL (6.4-8.2); Sodium Level 138 mmol/L (136-145); Troponin (Emerg Dept Use Only) < 0.02 ng/mL (0.0-0.045)
[2020-05-16 20:13] LABS: NT PRO-BNP < 5 pg/mL (<125)
[2020-05-16] MEDS ORDERED: KETOROLAC 30 MG/ML INJ ONE (20:36)
--- NOTE | 2020-05-16 22:03 | RAD REPORT ---
EXAM DESCRIPTION: RAD - Chest Single View - 05/16/2020 7:45 pm CLINICAL HISTORY: CHEST PAIN Chest pain. COMPARISON: Chest Single View dated 04/06/2019; Chest Pa And Lat (2 Views) dated 03/17/2019; Chest Sin gle View dated 08/24/2018; Chest Single View dated 01/14/2018 FINDINGS: Portable technique limits examination quality. The lungs are grossly clear. The heart is normal in size. No displaced fractures. IMPRESSION: No acute intrathoracic process suspected.
[2020-05-16 22:26] LABS: Urine Blood TRACE (NEG); Urine Glucose NEGATIVE (NEG); Urine Protein NEGATIVE (NEG); Urine Specific Gravity >1.030 (1.005-1.030); Urine pH 5.5 (5.0-7.0)
[2020-05-16 22:33] LABS: Barbiturates NEGATIVE (NEGATIVE); Benzodiazepines NEGATIVE (NEGATIVE); Cocaine NEGATIVE (NEGATIVE); METHAMPHETAM NEGATIVE (NEGATIVE); Methadone NEGATIVE (NEGATIVE); Opiates NEGATIVE (NEGATIVE); Phencyclidine NEGATIVE (NEGATIVE); THC Cannibis NEGATIVE (NEGATIVE)
--- NOTE | 2020-05-16 23:55 | EDPHYS ---
Physician Documentation [facility] Name: Holden Morris Age: 35 yrs Sex: Male : 1985 Arrival Date: 05/16/2020 Time: 19:21 Bed 7 Private MD: ED Physician Ulises Wallace HPI: 05/16 19:35 This 35 yrs old Black Male presents to ER via Ambulatory with complaints of Chest Pain. cp 05/17 21:44 The patient or guardian reports chest pain that is located primarily in the anterior cp chest wall, left. The pain radiates to the left arm. Associated signs and symptoms: Pertinent positives: tingling of left arm, Pertinent negatives: abdominal pain, cough, diaphoresis, lower extremity pain, lower extremity swelling, palpitations, shortness of breath, syncope. The chest pain is described as sharp. Duration: The patient or guardian reports a single episode, that is still ongoing, and unchanged. Historical: - Allergies: 05/16 19:28 PENICILLINS; jd3 - Home Meds: 19:28 carvedilol Oral [Active]; jd3 - PMHx: 19:28 Anxiety; Asthma; GERD; Hypertension; Migraines; jd3 - PSHx: 19:28 left cornea transplant; jd3 - Immunization history:: Adult Immunizations up to date. - Social history:: Smoking status: Patient denies any tobacco usage or history of. ROS: 19:38 Constitutional: Negative for body aches, chills, fever, poor PO intake. cp 19:38 Eyes: Negative for injury, pain, redness, and discharge. cp 19:38 ENT: Negative for ear pain, sore throat, difficulty swallowing, difficulty handling secretions. 19:38 Cardiovascular: Positive for chest pain, Negative for edema, palpitations. 19:38 Respiratory: Negative for cough, shortness of breath, wheezing. 19:38 Abdomen/GI: Negative for abdominal pain, nausea, vomiting, and diarrhea. 19:38 Back: Negative for pain at rest, pain with movement, radiated pain. 19:38 MS/extremity: Positive for pain, of the left arm, Negative for injury or acute deformity, decreased range of motion, paresthesias. 19:38 Neuro: Negative for altered mental status, headache, syncope, weakness. 19:38 All other systems are negative. Exam: 19:32 ECG was reviewed by the Attending Physician. cp 19:40 Constitutional: The patient appears in no acute distress, alert, awake, cp non-diaphoretic, non-toxic, well developed, well nourished. 19:40 Head/Face: Normocephalic, atraumatic. cp 19:40 Eyes: Periorbital structures: appear normal, Conjunctiva: normal, no exudate, no injection, Sclera: no appreciated abnormality, Lids and lashes: appear normal, bilaterally. 19:40 ENT: External ear(s): are unremarkable, Nose: is normal, Mouth: Lips: moist, Oral mucosa: pink and intact, moist, Posterior pharynx: Airway: no evidence of obstruction, patent. 19:40 Neck: ROM/movement: is normal, is supple, without pain, no range of motions limitations, no nuchal rigidity. 19:40 Chest/axilla: Inspection: normal, Palpation: crepitus, is not appreciated, tenderness, that is moderate, of the anterior aspect of left upper chest and left breast, that partially reproduces the patient's complaints. 19:40 Cardiovascular: Rate: normal, Rhythm: regular, Heart sounds: murmur, not appreciated, Edema: is not appreciated, JVD: is not appreciated. 19:40 Respiratory: the patient does not display signs of respiratory distress, Respirations: normal, no use of accessory muscles, no retractions, labored breathing, is not present, Breath sounds: are clear throughout, no decreased breath sounds, no stridor, no wheezing. 19:40 Abdomen/GI: Inspection: abdomen appears normal, Palpation: abdomen is soft and non-tender, in all quadrants. 19:40 Back: pain, is absent, ROM is normal. 19:40 Skin: no rash present. 19:40 Neuro: Orientation: to person, place \T\ time. Mentation: is normal, Motor: moves all fours, strength is normal, Sensation: no obvious gross deficits. Vital Signs: 19:28 BP 153 / 100; Pulse 95; Resp 17 S; Temp 97.6(O); Pulse Ox 100% on R/A; Weight 102.06 kg jd3 (R); Height 5 ft. 10 in. (177.80 cm) (R); Pain 9/10; 22:37 BP 129 / 85; Pulse 89; Resp 18; Pulse Ox 100% on R/A; mg2 23:50 BP 128 / 68; Pulse 80; Resp 18; Pulse Ox 98% ; ea 19:28 Body Mass Index 32.28 (102.06 kg, 177.80 cm) jd3 MDM: 19:40 Differential diagnosis: acute myocardial infarction, chest wall pain, costochondritis, cp pericarditis, pleurisy, pneumonia, pneumothorax, pulmonary embolus. 19:47 Patient medically screened. 23:54 Data reviewed: vital signs, nurses notes, lab test result(s), EKG, radiologic studies, cp plain films. 23:54 Test interpretation: by ED physician or midlevel provider: ECG, chest xray negative for cp infiltrates. Special discussion: Based on the patient's history, exam, and Dx evaluation, there is no indication for emergent intervention or inpatient Tx. It is understood by the patient/guardian that if the Sx's persist or worsen they need to return immediately for re-evaluation. 05/16 19:32 Order name: Basic Metabolic Panel; Complete Time: 20:33 mg2 05/16 19:32 Order name: CBC with Diff; Complete Time: 20:33 mg2 05/16 20:33 Interpretation: Normal except: RBC 5.64; HGB 13.3; MCV 73.7; MCH 23.5; MCHC 31.9; MN% cp 15.2. 05/16 19:32 Order name: LFT's; Complete Time: 20:33 mg2 05/16 19:32 Order name: Magnesium; Complete Time: 20:33 mg2 05/16 19:32 Order name: NT PRO-BNP; Complete Time: 20:33 mg2 05/16 19:32 Order name: PT-INR; Complete Time: 20:33 mg2 05/16 19:32 Order name: Troponin (emerg Dept Use Only); Complete Time: 20:33 mg2 05/16 19:32 Order name: XRAY Chest (1 view); Complete Time: 22:20 mg2 05/16 22:20 Interpretation: Report reviewed. 05/16 19:32 Order name: EKG; Complete Time: 19:32 mg2 05/16 21:49 Order name: UDS; Complete Time: 23:29 cp 05/16 22:14 Order name: Urine Dipstick--Ancillary (enter results); Complete Time: 23:29 tt3 05/16 23:29 Interpretation: Normal except: USPGR >1.030; UBLD TRACE. cp 05/16 22:50 Order name: Troponin I: repeat 2300; Complete Time: 23:53 cp 05/16 19:32 Order name: Cardiac monitoring; Complete Time: 19:32 mg2 05/16 19:32 Order name: EKG - Nurse/Tech; Complete Time: 19:32 mg2 05/16 19:32 Order name: IV Saline Lock; Complete Time: 19:32 mg2 05/16 19:32 Order name: Labs collected and sent; Complete Time: 19:32 mg2 05/16 19:32 Order name: O2 Per Protocol; Complete Time: 19:32 mg2 05/16 19:32 Order name: O2 Sat Monitoring; Complete Time: 19:32 mg2 05/16 21:49 Order name: Urine Dipstick-Ancillary (obtain specimen); Complete Time: 21:57 cp EC:32 Rate is 90 beats/min. Rhythm is regular. KS interval is normal. QRS interval is normal. cp QT interval is normal. Interpreted by me. Reviewed by me. Administered Medications: 20:25 Drug: TORadol - Ketorolac 15 mg Route: IVP; Site: left antecubital; ea 21:50 Follow up: Response: No adverse reaction mg2 Disposition: 05/17 00:47 Co-signature as Attending Physician, Ulises Wallace MD. 7 Disposition: 05/16/20 23:54 Discharged to Home. Impression: Chest pain, unspecified. - Condition is Stable. - Discharge Instructions: Nonspecific Chest Pain, Aspirin and Your Heart. - Prescriptions for ketorolac 10 mg Oral tablet - take 1 tablet by ORAL route every 6 hours for 4 days not to exceed 40 mg in 24hrs; 15 tablet. - Medication Reconciliation Form, Thank You Letter, Antibiotic Education, Prescription Opioid Use, Work release form form. - Follow up: Private Physician; When: 2 - 3 days; Reason: Recheck today's complaints. - Problem is new. - Symptoms have improved. Signatures: Dispatcher [employer] EDMS Aidan Pacheco PA PA cp Antunez, Elena, RN RN ea Davies, Jonathon, RN RN jd3 Gardose, Michele, RN RN mg2 Ulises Wallace MD MD [facility] Corrections: (The following items were deleted from the chart) 00:03 05/16 23:54 05/16/2020 23:54 Discharged to Home. Impression: Chest pain, unspecified. mg2 Condition is Stable. Forms are Medication Reconciliation Form, Thank You Letter, Antibiotic Education, Prescription Opioid Use. Follow up: Private Physician; When: 2 - 3 days; Reason: Recheck today's complaints. Problem is new. Symptoms have improved. cp
--- NOTE | 2020-05-16 23:55 | ER ---
Nurse's Notes [facility] Name: Holden Morris Age: 35 yrs Sex: Male : 1985 Arrival Date: 05/16/2020 Time: 19:21 Bed 7 Private MD: Diagnosis: Chest pain, unspecified Presentation: 05/16 19:26 Chief complaint: Patient states: "I having chest pain that went to my left arm for jd3 about an hour or so now. feels like someone is stabbing me causing my left arm to tingle.". Coronavirus screen: At this time, the client does not indicate any symptoms associated with coronavirus-19. Ebola Screen: Patient negative for fever greater than or equal to 101.5 degrees Fahrenheit, and additional compatible Ebola Virus Disease symptoms. Initial Sepsis Screen: Does the patient meet any 2 criteria? No. Patient's initial sepsis screen is negative. Does the patient have a suspected source of infection? No. Patient's initial sepsis screen is negative. Risk Assessment: Do you want to hurt yourself or someone else? Patient reports no desire to harm self or others. Onset of symptoms was May 16, 2020. 19:26 Method Of Arrival: Ambulatory jd3 19:26 Acuity: STONE 3 jd3 Historical: - Allergies: 19:28 PENICILLINS; jd3 - Home Meds: 19:28 carvedilol Oral [Active]; jd3 - PMHx: 19:28 Anxiety; Asthma; GERD; Hypertension; Migraines; jd3 - PSHx: 19:28 left cornea transplant; jd3 - Immunization history:: Adult Immunizations up to date. - Social history:: Smoking status: Patient denies any tobacco usage or history of. Screenin:32 Abuse screen: Denies threats or abuse. Denies injuries from another. Nutritional mg2 screening: No deficits noted. Tuberculosis screening: No symptoms or risk factors identified. Fall Risk IV access (20 points). Assessment: 19:32 General: Appears in no apparent distress. comfortable, Behavior is calm, cooperative. mg2 Pain: Complains of pain in chest Pain radiates to left arm. Neuro: Level of Consciousness is awake, alert, obeys commands, Oriented to person, place, time, situation. Cardiovascular: Capillary refill < 3 seconds Patient's skin is warm and dry. Respiratory: Airway is patent Respiratory effort is even, unlabored, Respiratory pattern is regular, symmetrical. GI: No signs and/or symptoms were reported involving the gastrointestinal system. : No signs and/or symptoms were reported regarding the genitourinary system. EENT: No signs and/or symptoms were reported regarding the EENT system. Derm: Skin is intact, is healthy with good turgor, Skin is pink, warm \\T\\ dry. normal. Musculoskeletal: Circulation, motion, and sensation intact. Capillary refill < 3 seconds. 19:32 Pain: Pain began gradually, 1 hour ago. mg2 20:38 Reassessment: Patient and/or family updated on plan of care and expected duration. Pain ea level reassessed. Patient is alert, oriented x 3, equal unlabored respirations, skin warm/dry/pink. 21:48 Reassessment: Patient and/or family updated on plan of care and expected duration. Pain ea level reassessed. Patient is alert, oriented x 3, equal unlabored respirations, skin warm/dry/pink. 05/17 00:00 Reassessment: Patient and/or family updated on plan of care and expected duration. Pain ea level reassessed. Patient is alert, oriented x 3, equal unlabored respirations, skin warm/dry/pink. Discharge instruction given to patient, verbalized the understanding of instruction. Pt left ED ambulatory tolerating well. Pt left ED ambulatory tolerating well. Vital Signs: 05/16 19:28 BP 153 / 100; Pulse 95; Resp 17 S; Temp 97.6(O); Pulse Ox 100% on R/A; Weight 102.06 kg jd3 (R); Height 5 ft. 10 in. (177.80 cm) (R); Pain 9/10; 22:37 BP 129 / 85; Pulse 89; Resp 18; Pulse Ox 100% on R/A; mg2 23:50 BP 128 / 68; Pulse 80; Resp 18; Pulse Ox 98% ; ea 19:28 Body Mass Index 32.28 (102.06 kg, 177.80 cm) jd3 ED Course: 19:21 Patient arrived in ED. ag5 19:27 Triage completed. jd3 19:27 Ulises Wallace MD is Attending Physician. mh7 19:27 Aidan Pacheco PA is PHCP. cp 19:28 Arm band placed on. jd3 19:29 EKG completed in triage. Results shown to . elizabeth 19:31 Damien Wilkins, RN is Primary Nurse. mg2 19:32 No provider procedures requiring assistance completed. Inserted saline lock: 20 gauge mg2 in left antecubital area, using aseptic technique. Blood collected. 19:33 Patient maintains SpO2 saturation greater than 95% on room air. mg2 19:45 XRAY Chest (1 view) In Process Unspecified. EDMS 19:47 Patient has correct armband on for positive identification. Bed in low position. Call ea light in reach. Side rails up X2. powerhouse laborer on. Pulse ox on. NIBP on. 05/17 00:00 IV discontinued, intact, bleeding controlled, No redness/swelling at site. Pressure ea dressing applied. 00:03 IV discontinued, intact, bleeding controlled, No redness/swelling at site. Pressure mg2 dressing applied. Administered Medications: 05/16 20:25 Drug: TORadol - Ketorolac 15 mg Route: IVP; Site: left antecubital; ea 21:50 Follow up: Response: No adverse reaction mg2 Outcome: 23:54 Discharge ordered by MD. linda 05/17 00:03 Discharged to home ambulatory. ea Condition: stable Discharge instructions given to patient, Instructed on discharge instructions, follow up and referral plans. medication usage, Demonstrated understanding of instructions, follow-up care, medications, Prescriptions given X 1. 00:03 Patient left the ED. mg2 Signatures: Dispatcher [employer] EDLA Aidan Pacheco PA PA cp Antunez, Elena, RN RN ea Davies, Jonathon, RN RN jd3 Gardose, Michele, Sonia Patel RN 5 Ulises Wallace MD MD 7
[2020-05-17 04:48] VITALS: TEMP 97.6
[2020-05-17 04:55] VITALS: BP 128/68; O2SAT 98
--- NOTE | 2020-05-18 07:44 | EKG ---
Test Date: 2020-05-16 Test Time: 19:26:28 Creping Machine Operator: NIMISHA MEASUREMENT RESULTS: Intervals: Rate: 90 VT: 136 QRSD: 76 QT: 324 QTc: 396 Gary: P: 42 VT: 136 QRS: 13 T: 22 INTERPRETIVE STATEMENTS: Normal sinus rhythm Normal ECG Compared to ECG 04/06/2019 10:13:09 No significant changes Electronically Signed On 05-18-20 07:40:57 INSTITUTION LIBRARIAN by Christopher Pacheco
== END 2020-05-17 00:03 | disposition home or self-care (01) ==
LOC: ER 19:19
DX: R07.9 Chest pain, unspecified (principal); I10 Essential (primary) hypertension; F41.9 Anxiety disorder, unspecified; Z88.0 Allergy status to penicillin
CPT/HCPCS: 36415; 71045; 80048; 80076; 80307; 81003; 83735; 83880; 84484; 85025; 85610; 93005; 96374; 99285

== ENCOUNTER 2020-06-16 09:26 | Emergency (ER) | payer SELFPAY ==
[2020-06-16 10:28] LABS: Basophils % 0.6 % (0-1.3); Hematocrit 41.3 % (39.6-49.0); Lymphocytes % 35.2 % (15.3-44.8); MPV 7.6 fL (7.6-11.3); RBC Red Blood Cell Count 5.62 M/uL (4.33-5.43)
[2020-06-16 10:43] LABS: ALT/SGPT 45 U/L (12-78); AST/SGOT 25 U/L (15-37); Albumin 3.6 g/dL (3.4-5.0); Alkaline Phosphatase 74 U/L (45-117); BUN Blood Urea Nitrogen 19 mg/dL (7-18); Bicarbonate 28 mmol/L (21-32); Bilirubin Direct < 0.1 mg/dL (0-0.2); Bilirubin Total 0.3 mg/dL (0.2-1.0); Glucose Level 106 mg/dL (74-106); Lipase 54 U/L (73-393); Protein, Total 7.9 g/dL (6.4-8.2); Sodium Level 138 mmol/L (136-145)
--- NOTE | 2020-06-16 10:48 | RAD REPORT ---
EXAM DESCRIPTION: CT - Abdomen Pelvis W Contrast - 06/16/2020 10:31 am CLINICAL HISTORY: Abdominal pain COMPARISON: April 2020 TECHNIQUE: Computed axial tomography of the abdomen pelvis was obtained. 100 cc Isovue-300 was admin istered intravenously. Oral contrast was not requested which limits evaluation of bowel. All CT scans are performed using dose optimization technique as appropriate and may include automated exposure control or mA/KV adjustment according to patient size. FINDINGS: The liver, spleen, pancreas, adrenal and kidneys appear unremarkable. There is no evidence of diverticulitis. Normal appendix IMPRESSION: No acute abnormality is displayed.
[2020-06-16] MEDS ORDERED: NA CHLORIDE 0.9% 500 ML ONE (10:54)
--- NOTE | 2020-06-16 11:13 | EDPHYS ---
Physician Documentation [facility] Name: Holden Morris Age: 35 yrs Sex: Male : 1985 Arrival Date: 06/16/2020 Time: 09:27 Bed 8 Private MD: ED Physician Ko Guillaume HPI: 06/16 09:53 This 35 yrs old Black Male presents to ER via Unassigned with complaints of Pelvic Pain.jmm 09:53 The patient presents with abdominal pain in the lower abdomen. Onset: The jmm symptoms/episode began/occurred this morning. The symptoms do not radiate. Associated signs and symptoms: Pertinent negatives: fever, testicular pain, vomiting. This is a 35 year old male that presents ot the ED with complaints of right lower abdominal pain which radiates into his right groin. Complains of subjective fever, denies dysuria, scrotal pain, diarrhea.. Historical: - Allergies: 09:56 PENICILLINS; iw - Home Meds: 09:56 carvedilol 50 mg Oral 2 times per day [Active]; iw - PMHx: 09:56 Anxiety; Asthma; GERD; Hypertension; Migraines; iw - PSHx: 09:56 left cornea transplant; iw - Immunization history:: Adult Immunizations up to date. - Social history:: Smoking status: . ROS: 09:53 Cardiovascular: Negative for chest pain, palpitations, and edema, Respiratory: Negative jmm for shortness of breath, cough, wheezing, and pleuritic chest pain. 09:53 Constitutional: Positive for body aches, chills. 09:53 Abdomen/GI: Positive for abdominal pain. 09:53 All other systems are negative. Exam: 09:53 Constitutional: This is a well developed, well nourished patient who is awake, alert, jmm and in no acute distress. Head/Face: atraumatic. Eyes: EOMI, no conjunctival erythema appreciated ENT: Moist Mucus Membranes Neck: Trachea midline, Supple Chest/axilla: Normal chest wall appearance and motion. Cardiovascular: Regular rate and rhythm. No edema appreciated Respiratory: Normal respirations, no respiratory distress appreciated 09:53 Back: Normal ROM Skin: General appearance color normal MS/ Extremity: Moves all extremities, no obvious deformities appreciated, no edema noted to the lower extremities Neuro: Awake and alert, normal gait Psych: Behavior is normal, Mood is normal, Patient is cooperative and pleasant 09:53 Abdomen/GI: Inspection: abdomen appears normal, Bowel sounds: normal, Palpation: soft, in the right lower quadrant, mild abdominal tenderness, in the right lower quadrant. Vital Signs: 09:48 BP 128 / 74; Pulse 64; Resp 16; Temp 98.3(O); Pulse Ox 97% on R/A; Weight 97.52 kg; dh3 Height 5 ft. 10 in. (177.80 cm); Pain 8/10; 10:35 BP 135 / 75; Pulse 73; Resp 16; Pulse Ox 100% on R/A; vg1 09:48 Body Mass Index 30.85 (97.52 kg, 177.80 cm) 3 MDM: 09:45 Patient medically screened. [facility] 11:11 Data reviewed: vital signs, nurses notes. Counseling: I had a detailed discussion with joby the patient and/or guardian regarding: the historical points, exam findings, and any diagnostic results supporting the discharge/admit diagnosis, lab results, radiology results, the need for outpatient follow up, to return to the emergency department if symptoms worsen or persist or if there are any questions or concerns that arise at home. ED course: Patient is alert and non toxic in appearance in the ED. CT negative. Patient is given early appendicitis return precautions. Patient understood and agrees with the plan of care. . 06/16 09:52 Order name: Basic Metabolic Panel; Complete Time: 10:45 [facility] 06/16 09:52 Order name: CBC with Diff; Complete Time: 10:34 [facility] 06/16 09:52 Order name: Hepatic Function; Complete Time: 10:45 [facility] 06/16 09:52 Order name: Lipase; Complete Time: 10:45 [facility] 06/16 09:52 Order name: CT Abd/Pelvis - IV Contrast Only; Complete Time: 10:58 [facility] 06/16 11:04 Order name: Urine Dipstick--Ancillary (enter results) 06/16 09:52 Order name: IV Saline Lock; Complete Time: 10:36 [facility] 06/16 09:52 Order name: Labs collected and sent; Complete Time: 10:36 [facility] 06/16 10:34 Order name: Urine Dipstick-Ancillary (obtain specimen); Complete Time: 11:05 [facility] Administered Medications: 10:45 Drug: NS 0.9% 500 ml Route: IV; Rate: bolus; Site: left antecubital; vg1 11:23 Follow up: IV Status: Order to discontinue infusion; IV Intake: 100ml vg1 Disposition: 17:50 Co-signature as Attending Physician, Ko Guillaume MD Did not see or evaluate patient. ps1 Signature for administrative purposes. . Disposition: 06/16/20 11:12 Discharged to Home. Impression: Lower abdominal pain, unspecified. - Condition is Stable. - Discharge Instructions: Abdominal Pain, Adult. - Medication Reconciliation Form, Thank You Letter, Antibiotic Education, Prescription Opioid Use, Work release form form. - Follow up: Private Physician; When: 2 - 3 days; Reason: Recheck today's complaints, Continuance of care, Re-evaluation by your physician. Signatures: Dispatcher [employer] EDMS Manjit Salinas PA PA jmm Williams, Irene, RN NICOL iw Ko Guillaume MD MD ps1 Lis Hawthorne RN RN vg1 Corrections: (The following items were deleted from the chart) 11:24 11:12 06/16/2020 11:12 Discharged to Home. Impression: Lower abdominal pain, vg1 unspecified. Condition is Stable. Forms are Medication Reconciliation Form, Thank You Letter, Antibiotic Education, Prescription Opioid Use. Follow up: Private Physician; When: 2 - 3 days; Reason: Recheck today's complaints, Continuance of care, Re-evaluation by your physician. patrick
--- NOTE | 2020-06-16 11:13 | ER ---
Nurse's Notes [facility] Name: Holden Morris Age: 35 yrs Sex: Male : 1985 Arrival Date: 06/16/2020 Time: 09:27 Bed 8 Private MD: Diagnosis: Lower abdominal pain, unspecified Presentation: 06/16 09:54 Chief complaint: Patient states: right hip pain radiating into right groin started iw around 0430 today, also has pain on left side. Coronavirus screen: At this time, the client does not indicate any symptoms associated with coronavirus-19. Ebola Screen: Patient negative for fever greater than or equal to 101.5 degrees Fahrenheit, and additional compatible Ebola Virus Disease symptoms Patient denies exposure to infectious person. Patient denies travel to an Ebola-affected area in the 21 days before illness onset. No symptoms or risks identified at this time. Initial Sepsis Screen: Does the patient meet any 2 criteria? No. Patient's initial sepsis screen is negative. Does the patient have a suspected source of infection? No. Patient's initial sepsis screen is negative. Risk Assessment: Do you want to hurt yourself or someone else? Patient reports no desire to harm self or others. Onset of symptoms was June 16, 2020. 09:54 Method Of Arrival: Ambulatory iw 09:56 Acuity: STONE 3 iw Historical: - Allergies: 09:56 PENICILLINS; iw - Home Meds: 09:56 carvedilol 50 mg Oral 2 times per day [Active]; iw - PMHx: 09:56 Anxiety; Asthma; GERD; Hypertension; Migraines; iw - PSHx: 09:56 left cornea transplant; iw - Immunization history:: Adult Immunizations up to date. - Social history:: Smoking status: . Screenin:10 Abuse screen: Denies threats or abuse. Nutritional screening: On. Tuberculosis vg1 screening: No symptoms or risk factors identified. Fall Risk No fall in past 12 months (0 pts). No secondary diagnosis (0 pts). IV access (20 points). Ambulatory Aid- None/Bed Rest/Nurse Assist (0 pts). Gait- Normal/Bed Rest/Wheelchair (0 pts) Mental Status- Oriented to own ability (0 pts). Total Anderson Fall Scale indicates No Risk (0-24 pts). Assessment: 10:10 General: Appears in no apparent distress. comfortable, Behavior is calm, cooperative. vg1 Pain: Complains of pain in Lower right back that radiates to RLQ Pain currently is 8 out of 10 on a pain scale. 10:10 Neuro: Level of Consciousness is awake, alert, obeys commands, Oriented to person, vg1 place, time, situation. Cardiovascular: Patient's skin is warm and dry. Respiratory: Airway is patent Respiratory effort is even, unlabored, Respiratory pattern is regular, symmetrical. GI: No signs and/or symptoms were reported involving the gastrointestinal system. Reports normal bowel habits, Patient currently denies nausea, vomiting. : Reports pain after urnination. EENT: No signs and/or symptoms were reported regarding the EENT system. Derm: Skin is pink, warm \T\ dry. Musculoskeletal: Range of motion: intact in all extremities. 11:06 Reassessment: Patient appears in no apparent distress at this time. Patient and/or sv family updated on plan of care and expected duration. Pain level reassessed. Patient is alert, oriented x 3, equal unlabored respirations, skin warm/dry/pink. Pt denied burning with urination when obtaining the urine sample. Vital Signs: 09:48 BP 128 / 74; Pulse 64; Resp 16; Temp 98.3(O); Pulse Ox 97% on R/A; Weight 97.52 kg; 3 Height 5 ft. 10 in. (177.80 cm); Pain 8/10; 10:35 BP 135 / 75; Pulse 73; Resp 16; Pulse Ox 100% on R/A; vg1 09:48 Body Mass Index 30.85 (97.52 kg, 177.80 cm) [facility] ED Course: 09:27 Patient arrived in ED. as 09:44 Manjit Salinas PA is PHCP. jmm 09:44 Ko Guillaume MD is Attending Physician. jmm 09:50 Lis Hawthorne, NICOL is Primary Nurse. vg1 09:56 Triage completed. iw 10:13 Inserted saline lock: 22 gauge in left antecubital area, using aseptic technique. Blood vg1 collected. 10:13 Initial lab(s) drawn, by me, sent to lab. vg1 10:15 Arm band placed on. vg1 10:15 Patient has correct armband on for positive identification. Bed in low position. Call vg1 light in reach. Side rails up X 1. Pulse ox on. NIBP on. 10:[address] via wheelchair. vg1 10:32 CT Abd/Pelvis - IV Contrast Only In Process Unspecified. EDMS 10:36 Patient moved back from CT. vg1 11:26 IV discontinued, intact, bleeding controlled, No redness/swelling at site. Pressure vg1 dressing applied. 11:26 No provider procedures requiring assistance completed. vg1 Administered Medications: 10:45 Drug: NS 0.9% 500 ml Route: IV; Rate: bolus; Site: left antecubital; vg1 11:23 Follow up: IV Status: Order to discontinue infusion; IV Intake: 100ml vg1 Intake: 11:23 IV: 100ml; Total: 100ml. vg1 Outcome: 11:12 Discharge ordered by . patrick 11:24 Patient left the ED. vg1 11:26 Discharged to home vg1 11:26 Discharged to home ambulatory. 11:26 Condition: stable 11:26 Discharge instructions given to patient, Instructed on discharge instructions, follow up and referral plans. Demonstrated understanding of instructions, follow-up care. Signatures: Dispatcher [employer] EDGiuliana Galvez, RN RN Manjit Ivey PA PA jmm Martinez, Amelia as Williams, Irene, RN Samantha Kinney [facility] Lis Hawthorne RN RN vg1
[2020-06-16 11:56] LABS: Urine Blood TRACE (NEG); Urine Glucose NEGATIVE (NEG); Urine Protein NEGATIVE (NEG); Urine Specific Gravity 1.015 (1.005-1.030)
[2020-06-19 08:03] VITALS: TEMP 98.3
[2020-06-19 08:04] VITALS: BP 135/75; O2SAT 100
== END 2020-06-16 11:24 | disposition home or self-care (01) ==
LOC: ER 09:26
DX: R10.30 Lower abdominal pain, unspecified (principal); I10 Essential (primary) hypertension; Z88.0 Allergy status to penicillin
CPT/HCPCS: 36415; 74177; 80048; 80076; 81003; 82565; 83690; 85025; 96360; 99284; J7040; Q9967

== ENCOUNTER 2020-07-16 08:55 | Emergency (ER) | payer SELFPAY ==
--- NOTE | 2020-07-16 09:14 | EDPHYS ---
Physician Documentation [facility] Name: Holden Morris Age: 35 yrs Sex: Male : 1985 Arrival Date: 07/16/2020 Time: 08:56 Bed 17 Private MD: Saad Dove T ED Physician Jose Ramon Tinajero HPI: 07/16 09:05 This 35 yrs old Black Male presents to ER via Unassigned with complaints of Cough, kb Redness of Eye. 09:05 The patient or guardian reports cough, that is intermittent, described as mild. Onset: kb The symptoms/episode began/occurred last week. Severity of symptoms: At their worst the symptoms were mild, in the emergency department the symptoms are unchanged. Modifying factors: The symptoms are alleviated by nothing, the symptoms are aggravated by nothing. Associated signs and symptoms: The patient has no apparent associated signs or symptoms. The patient has experienced similar episodes in the past. The patient has not recently seen a physician. Pt states he has allergies and it has caused him to sneeze and cough. States he doesn't have a fever or any other flu/covid symptoms. Reports his eyes were red this morning when he got work so he was sent home and told to get a dr's note before he could return. Pt does not want to be tested for flu or covid. States he just came in to get a dr's note to return on Tuesday. Also requests a refill of carvidolol because he has been out for two weeks and has been unable to get a dr's appt to get a new prescription because they have been booked. Pt has a picture of the pill bottle with him. Pt was prescribed carvidolol 6.25mg PO BID. Historical: - Allergies: 09:12 PENICILLINS; aa5 - Home Meds: 09:12 carvedilol oral oral [Active]; aa5 - PMHx: 09:12 Anxiety; Asthma; GERD; Hypertension; Migraines; aa5 - PSHx: 09:12 left cornea transplant; aa5 - Immunization history:: Adult Immunizations up to date. - Social history:: Smoking status: unknown. ROS: 09:12 Constitutional: Negative for fever, chills, and weight loss, Cardiovascular: Negative kb for chest pain, palpitations, and edema, Abdomen/GI: Negative for abdominal pain, nausea, vomiting, diarrhea, and constipation, Back: Negative for injury and pain, MS/Extremity: Negative for injury and deformity, Skin: Negative for injury, rash, and discoloration, Neuro: Negative for headache, weakness, numbness, tingling, and seizure. 09:12 Eyes: Positive for redness. 09:12 Respiratory: Positive for cough, Negative for dyspnea on exertion, hemoptysis, orthopnea, pleurisy, shortness of breath, sputum production, wheezing. Exam: 09:12 Constitutional: This is a well developed, well nourished patient who is awake, alert, kb and in no acute distress. Head/Face: Normocephalic, atraumatic. Eyes: Pupils equal round and reactive to light, extra-ocular motions intact. Lids and lashes normal. Conjunctiva and sclera are non-icteric and not injected. Cornea within normal limits. Periorbital areas with no swelling, redness, or edema. Chest/axilla: Normal chest wall appearance and motion. Nontender with no deformity. No lesions are appreciated. Cardiovascular: Regular rate and rhythm with a normal S1 and S2. No gallops, murmurs, or rubs. Normal PMI, no JVD. No pulse deficits. Respiratory: Lungs have equal breath sounds bilaterally, clear to auscultation and percussion. No rales, rhonchi or wheezes noted. No increased work of breathing, no retractions or nasal flaring. Abdomen/GI: Soft, non-tender, with normal bowel sounds. No distension or tympany. No guarding or rebound. No evidence of tenderness throughout. Skin: Warm, dry with normal turgor. Normal color with no rashes, no lesions, and no evidence of cellulitis. MS/ Extremity: Pulses equal, no cyanosis. Neurovascular intact. Full, normal range of motion. Neuro: Awake and alert, GCS 15, oriented to person, place, time, and situation. Cranial nerves II-XII grossly intact. Motor strength 5/5 in all extremities. Sensory grossly intact. Cerebellar exam normal. Normal gait. Vital Signs: 09:08 BP 134 / 87; Pulse 93; Resp 18; Temp 98.2(O); Pulse Ox 97% on R/A; mh5 MDM: 08:59 Patient medically screened. kb 09:09 Data reviewed: vital signs, nurses notes. Data interpreted: Pulse oximetry: on room air kb is 100 %. Interpretation: normal. Counseling: I had a detailed discussion with the patient and/or guardian regarding: the historical points, exam findings, and any diagnostic results supporting the discharge/admit diagnosis, the need for outpatient follow up, a family practitioner, to return to the emergency department if symptoms worsen or persist or if there are any questions or concerns that arise at home. Administered Medications: No medications were administered Disposition: 09:51 Co-signature as Attending Physician, Jose Ramon Tinajero MD. rn Disposition: 07/16/20 09:13 Discharged to Home. Impression: Allergic rhinitis, unspecified, Encounter for issue of repeat prescription. - Condition is Stable. - Discharge Instructions: Medicine Refill at the Emergency Department, Allergic Rhinitis. - Prescriptions for Carvedilol 6.25 mg Oral Tablet - take 1 tablet by ORAL route 2 times per day with food; 30 tablet. - Work release form, Medication Reconciliation Form, Thank You Letter, Antibiotic Education, Prescription Opioid Use form. - Follow up: Emergency Department; When: As needed; Reason: Worsening of condition. Follow up: Private Physician; When: 2 - 3 days; Reason: Recheck today's complaints, Continuance of care, Re-evaluation by your physician. Signatures: Eve Murray, PPAP COORDINATOR-C PPAP COORDINATOR-Jose Ramon Michel MD MD rn Calderon, Audri, RN RN aa5 Lobo Alvares RN RN jd3 Corrections: (The following items were deleted from the chart) 09:12 09:05 Pt states he has allergies and it has caused him to sneeze and cough. States he kb doesn't have a fever or any other flu/covid symptoms. Reports his eyes were red this morning when he got work so he was sent home and told to get a dr's note before he could return. Pt does not want to be tested for flu or covid. States he just came in to get a dr's note to return on Tuesday. Also requests a refill of carvidolol because he has been out for two weeks and has been unable to get a dr's appt to get a new prescription because they have been booked. . kb 09:25 09:13 07/16/2020 09:13 Discharged to Home. Impression: Allergic rhinitis, unspecified; jd3 Encounter for issue of repeat prescription. Condition is Stable. Forms are Medication Reconciliation Form, Thank You Letter, Antibiotic Education, Prescription Opioid Use. Follow up: Emergency Department; When: As needed; Reason: Worsening of condition. Follow up: Private Physician; When: 2 - 3 days; Reason: Recheck today's complaints, Continuance of care, Re-evaluation by your physician. kb
--- NOTE | 2020-07-16 09:14 | ER ---
Nurse's Notes [facility] Name: Holden Morris Age: 35 yrs Sex: Male : 1985 Arrival Date: 07/16/2020 Time: 08:56 Bed 17 Private MD: Saad Dove T Diagnosis: Allergic rhinitis, unspecified;Encounter for issue of repeat prescription Presentation: 07/16 08:59 Chief complaint: Patient states: "I've been working out in the cold for the last few aa5 days and today when I was brushing my teeth I sneezed green and yellow mucus out". pt denies cough, pt also reports redness to eyes this morning. Pt states "I just need a work note because my work sent me here". 08:59 Coronavirus screen: Client denies travel out of the [place] in the last 14 days. Ebola aa5 Screen: Patient negative for fever greater than or equal to 101.5 degrees Fahrenheit, and additional compatible Ebola Virus Disease symptoms. Risk Assessment: Do you want to hurt yourself or someone else? Patient reports no desire to harm self or others. Onset of symptoms was July 16, 2020. 08:59 Acuity: STONE 5 aa5 08:59 Method Of Arrival: Ambulatory aa5 09:25 Initial Sepsis Screen: Does the patient meet any 2 criteria? No. Patient's initial jd3 sepsis screen is negative. Does the patient have a suspected source of infection? No. Patient's initial sepsis screen is negative. Historical: - Allergies: 09:12 PENICILLINS; aa5 - Home Meds: 09:12 carvedilol oral oral [Active]; aa5 - PMHx: 09:12 Anxiety; Asthma; GERD; Hypertension; Migraines; aa5 - PSHx: 09:12 left cornea transplant; aa5 - Immunization history:: Adult Immunizations up to date. - Social history:: Smoking status: unknown. Screenin:24 Abuse screen: Denies threats or abuse. Nutritional screening: No deficits noted. jd3 Tuberculosis screening: No symptoms or risk factors identified. Fall Risk Ambulatory Aid- None/Bed Rest/Nurse Assist (0 pts). Gait- Normal/Bed Rest/Wheelchair (0 pts) Mental Status- Oriented to own ability (0 pts). Total Anderson Fall Scale indicates No Risk (0-24 pts). Assessment: 09:23 General: Appears in no apparent distress. uncomfortable, Behavior is calm, cooperative, jd3 appropriate for age. Pain: Denies pain. Neuro: Level of Consciousness is awake, alert, obeys commands, Oriented to person, place, time, situation. Cardiovascular: Denies chest pain, Capillary refill < 3 seconds Patient's skin is warm and dry. Respiratory: Reports cough that is non-productive, Airway is patent Respiratory effort is even, unlabored, Respiratory pattern is regular, symmetrical. GI: No signs and/or symptoms were reported involving the gastrointestinal system. : No signs and/or symptoms were reported regarding the genitourinary system. EENT: No signs and/or symptoms were reported regarding the EENT system. Derm: Skin is intact, Skin is dry, Skin is normal, Skin temperature is warm. Musculoskeletal: Circulation, motion, and sensation intact. Range of motion: intact in all extremities. Vital Signs: 09:08 BP 134 / 87; Pulse 93; Resp 18; Temp 98.2(O); Pulse Ox 97% on R/A; mh5 ED Course: 08:56 Patient arrived in ED. ag5 08:57 Saad Dove MD is Private Physician. ag5 08:59 Eve Murray FNP-C is [facility]. kb 08:59 Jose Ramon Tinajero MD is Attending Physician. kb 08:59 Arm band placed on. aa5 09:07 Lobo Alvares, RN is Primary Nurse. jd3 09:09 Patient has correct armband on for positive identification. Bed in low position. Call mh5 light in reach. Side rails up X 1. Pulse ox on. NIBP on. 09:11 Triage completed. aa5 09:24 No provider procedures requiring assistance completed. Patient did not have IV access jd3 during this emergency room visit. Administered Medications: No medications were administered Outcome: 09:13 Discharge ordered by . kb 09:24 Discharged to home ambulatory. jd3 09:24 Condition: stable 09:24 Discharge instructions given to patient, Instructed on discharge instructions, follow up and referral plans. medication usage, Demonstrated understanding of instructions, follow-up care, medications, Prescriptions given X 1. 09:25 Patient left the ED. jd3 Signatures: Eve Murray FNP-C FNP-Kanwal Ward, RN RN aa5 Valeria Oliver 5 Lobo Alvares, RN RN jd3 Shabnam, Sonia ag5
[2020-07-16 09:32] VITALS: BP 134/87; TEMP 98.2; O2SAT 97
== END 2020-07-16 09:25 | disposition home or self-care (01) ==
LOC: ER 08:55
DX: J30.9 Allergic rhinitis, unspecified (principal); I10 Essential (primary) hypertension; Z76.0 Encounter for issue of repeat prescription; Z88.0 Allergy status to penicillin
CPT/HCPCS: 99283

== ENCOUNTER 2020-07-23 08:19 | Emergency (ER) | payer SELFPAY ==
--- NOTE | 2020-07-23 10:05 | RAD REPORT ---
EXAM DESCRIPTION: [facility] Single View07/23/2020 9:19 am CLINICAL HISTORY: Cough COMPARISON: May 2020 FINDINGS: The lungs appear clear of acute infiltrate. The heart is normal size IMPRESSION: No acute abnormalities displayed
[2020-07-23 10:38] LABS: SARS-COV-2 RT PCR NEGATIVE (NEGATIVE)
--- NOTE | 2020-07-23 10:42 | ER ---
Nurse's Notes [facility] Name: Holden Morris Age: 35 yrs Sex: Male : 1985 Arrival Date: 07/23/2020 Time: 08:23 Bed 24 Private MD: Saad Dove T Diagnosis: Cough Presentation: 07/23 08:33 Chief complaint: Patient states: "I woke up with fluid in my mouth at 0520 this morning ss and I spit it out and it was like yellow-green mucous with some blood in it." Gigi fever, cough and/or SOB.". Coronavirus screen: Client denies travel out of the [place] in the last 14 days. Ebola Screen: Patient denies exposure to infectious person. Patient denies travel to an Ebola-affected area in the 21 days before illness onset. Initial Sepsis Screen: Does the patient meet any 2 criteria? No. Patient's initial sepsis screen is negative. Does the patient have a suspected source of infection? No. Patient's initial sepsis screen is negative. Risk Assessment: Do you want to hurt yourself or someone else? Patient reports no desire to harm self or others. Onset of symptoms was July 23, 2020. 08:33 Method Of Arrival: Ambulatory ss 08:33 Acuity: STONE 3 ss Historical: - Allergies: 08:36 PENICILLINS; ss - PMHx: 08:36 Anxiety; Asthma; GERD; Hypertension; Migraines; ss - PSHx: 08:36 left cornea transplant; ss - Immunization history:: Adult Immunizations up to date. - Social history:: Smoking status: Patient denies any tobacco usage or history of. - Family history:: not pertinent. - Hospitalizations: : No recent hospitalization is reported. Screenin:48 Abuse screen: Denies threats or abuse. Denies injuries from another. Nutritional ph screening: No deficits noted. Tuberculosis screening: No symptoms or risk factors identified. Fall Risk None identified. Assessment: 09:00 General: Appears in no apparent distress. comfortable, Behavior is calm, cooperative, ph appropriate for age, Denies fever. Pain: Denies pain. Neuro: Level of Consciousness is awake, alert, obeys commands, Oriented to person, place, time, situation. Cardiovascular: Capillary refill < 3 seconds in bilateral fingers Patient's skin is warm and dry. Respiratory: Reports cough that is productive, Airway is patent Respiratory effort is even, unlabored, Respiratory pattern is regular, symmetrical, Denies shortness of breath. GI: No signs and/or symptoms were reported involving the gastrointestinal system. Derm: Skin is intact, is healthy with good turgor, Skin is pink, warm \\T\\ dry. Musculoskeletal: Circulation, motion, and sensation intact. Range of motion: intact in all extremities. 10:30 Reassessment: Patient appears in no apparent distress at this time. Patient and/or ph family updated on plan of care and expected duration. Pain level reassessed. Patient is alert, oriented x 3, equal unlabored respirations, skin warm/dry/pink. Awaiting xray and COVID results, VSS. Vital Signs: 08:33 BP 161 / 77; Pulse 88; Resp 16; Temp 98.1(O); Pulse Ox 97% on R/A; Weight 102.06 kg; ss Height 5 ft. 9 in. (175.26 cm); Pain 0/10; 09:36 BP 149 / 88; Pulse 93; Resp 17; Temp 98.5(O); Pulse Ox 96% on R/A; mh5 10:30 BP 138 / 89; Pulse 91; Resp 18; Temp 97.9; Pulse Ox 97% on R/A; ph 08:33 Body Mass Index 33.23 (102.06 kg, 175.26 cm) ED Course: 08:23 Patient arrived in ED. mr 08:23 Saad Dove MD is Private Physician. mr 08:26 Jose Ramon Tinajero MD is Attending Physician. rn 08:35 Triage completed. ss 08:36 Arm band placed on right wrist. ss 09:15 Marianela Gonzales, RN is Primary Nurse. ph 09:19 XRAY Chest (1 view) In Process Unspecified. EDMS 09:35 Flu Sent. mh5 09:35 Strep Sent. mh5 09:35 COVID swab sent to lab. Flu and/or RSV swab sent to lab. Strep swab sent to lab. mh5 09:36 Patient has correct armband on for positive identification. Bed in low position. Call 5 light in reach. Side rails up X 1. Pulse ox on. NIBP on. 10:57 No provider procedures requiring assistance completed. Patient did not have IV access ss during this emergency room visit. Administered Medications: No medications were administered Outcome: 10:41 Discharge ordered by . rn 10:57 Discharged to home ambulatory. ss 10:57 Condition: good 10:57 Discharge instructions given to patient, Instructed on discharge instructions, follow up and referral plans. Demonstrated understanding of instructions, follow-up care. 10:59 Patient left the ED. ss Signatures: Dispatcher [employer] EDVT HanAnika mr Jose Ramon Tinajero MD MD rn Smirch, Shelby, RN RN Marianela Gonzales RN RN [facility] [place] [id number] Corrections: (The following items were deleted from the chart) 09:36 09:35 CORONAVIRUS+[email or web address] drawn and sent. [address]
--- NOTE | 2020-07-23 10:42 | EDPHYS ---
Physician Documentation [facility] Name: Holden Morris Age: 35 yrs Sex: Male : 1985 Arrival Date: 07/23/2020 Time: 08:23 Bed 24 Private MD: Saad Dove T ED Physician Jose Ramon Tinajero HPI: 07/23 09:00 This 35 yrs old Black Male presents to ER via Ambulatory with complaints of spit up rn mucous and blood tinged. 09:00 Reports woke up today, had yellow/green mucous with small amount of red blood, denies rn fever/recent illness, ate some chicken last night but doesn't recall injury. No chest pain/sob/abd pain/vomiting/diarrhea. Single episode, has not happened again since waking up. Denies sore throat. . Onset: The symptoms/episode began/occurred this morning. Severity of symptoms: At their worst the symptoms were mild in the emergency department the symptoms are unchanged. The patient has not experienced similar symptoms in the past. The patient has not recently seen a physician. Historical: - Allergies: 08:36 PENICILLINS; ss - PMHx: 08:36 Anxiety; Asthma; GERD; Hypertension; Migraines; ss - PSHx: 08:36 left cornea transplant; ss - Immunization history:: Adult Immunizations up to date. - Social history:: Smoking status: Patient denies any tobacco usage or history of. - Family history:: not pertinent. - Hospitalizations: : No recent hospitalization is reported. ROS: 09:00 Constitutional: Negative for fever, chills, and weight loss, Eyes: Negative for injury, rn pain, redness, and discharge, ENT: Negative for injury, pain, and discharge, Neck: Negative for injury, pain, and swelling, Cardiovascular: Negative for chest pain, palpitations, and edema, Respiratory: Negative for shortness of breath, cough, wheezing, and pleuritic chest pain, Abdomen/GI: Negative for abdominal pain, nausea, vomiting, diarrhea, and constipation, MS/Extremity: Negative for injury and deformity, Skin: Negative for injury, rash, and discoloration, Neuro: Negative for headache, weakness, numbness, tingling, and seizure. Exam: 09:00 Constitutional: This is a well developed, well nourished patient who is awake, alert, rn and in no acute distress. Ambulatory without distress. Head/Face: Normocephalic, atraumatic. ENT: Mild pharyngeal erythema without exudate, no stridor, no trauma or site of bleeding noted. Neck: Non-tender, bilateral cervical LAD. No Meningismus. Cardiovascular: Regular rate and rhythm. No pulse deficits. Respiratory: No increased work of breathing, no retractions or nasal flaring. Abdomen/GI: Soft, non-tender Skin: Warm, dry MS/ Extremity: Pulses equal, no cyanosis. Neuro: Awake and alert, GCS 15 Vital Signs: 08:33 BP 161 / 77; Pulse 88; Resp 16; Temp 98.1(O); Pulse Ox 97% on R/A; Weight 102.06 kg; ss Height 5 ft. 9 in. (175.26 cm); Pain 0/10; 09:36 BP 149 / 88; Pulse 93; Resp 17; Temp 98.5(O); Pulse Ox 96% on R/A; mh5 10:30 BP 138 / 89; Pulse 91; Resp 18; Temp 97.9; Pulse Ox 97% on R/A; ph 08:33 Body Mass Index 33.23 (102.06 kg, 175.26 cm) ss MDM: 08:26 Patient medically screened. rn 10:41 Differential Diagnosis Strep, flu, covid, allergies. Data reviewed: vital signs, nurses rn notes, lab test result(s), radiologic studies, plain films, and as a result, I will discharge patient. Counseling: I had a detailed discussion with the patient and/or guardian regarding: the historical points, exam findings, and any diagnostic results supporting the discharge/admit diagnosis, lab results, radiology results, the need for outpatient follow up, to return to the emergency department if symptoms worsen or persist or if there are any questions or concerns that arise at home. Special discussion: I discussed with the patient/guardian in detail that at this point there is no indication for admission to the hospital. It is understood, however, that if the symptoms persist or worsen the patient needs to return immediately for re-evaluation. 07/23 08:33 Order name: Strep; Complete Time: 10:21 rn 07/23 08:33 Order name: XRAY Chest (1 view); Complete Time: 10: rn 07/23 10:08 Order name: Throat Culture EDMS 07/23 10:39 Order name: COVID-19/FLU A+B [facility] Administered Medications: No medications were administered Disposition: 07/23/20 10:41 Discharged to Home. Impression: Cough. - Condition is Stable. - Discharge Instructions: Cough, Adult. - Medication Reconciliation Form, Thank You Letter, Antibiotic Education, Prescription Opioid Use, Work release form form. - Follow up: Private Physician; When: As needed; Reason: Recheck today's complaints, Re-evaluation by your physician. - Problem is new. - Symptoms have improved. 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 [facility] 10:59 10:41 07/23/2020 10:41 Discharged to Home. Impression: Cough. Condition is Stable. ss Discharge Instructions: Cough, Adult. Forms are Medication Reconciliation Form, Thank You Letter, Antibiotic Education, Prescription Opioid Use. Follow up: Private Physician; When: As needed; Reason: Recheck today's complaints, Re-evaluation by your physician. Problem is new. Symptoms have improved. rn
[2020-07-23 11:04] VITALS: BP 149/88; TEMP 98.5; O2SAT 96
== END 2020-07-23 10:59 | disposition home or self-care (01) ==
LOC: ER 08:19
DX: R05 Cough (principal); Z20.822 Contact with and (suspected) exposure to COVID-19; Z88.0 Allergy status to penicillin
CPT/HCPCS: 0240U; 71045; 87070; 87081; 99284

== ENCOUNTER 2020-10-06 14:03 | Emergency (ER) | payer SELFPAY ==
--- NOTE | 2020-10-06 15:51 | ER ---
Nurse's Notes [facility] Name: Holden Morris Age: 35 yrs Sex: Male : 1985 Arrival Date: 10/06/2020 Time: 14:07 Bed Waiting Private MD: Diagnosis: Presentation: 10/06 14:15 Chief complaint: Patient states: R eye redness for 2 days. Irritation and crust eye ll1 this morning. Needs work release also. Coronavirus screen: Client denies travel out of the [place] in the last 14 days. At this time, the client does not indicate any symptoms associated with coronavirus-19. Ebola Screen: Patient denies travel to an Ebola-affected area in the 21 days before illness onset. Initial Sepsis Screen: Does the patient meet any 2 criteria? No. Patient's initial sepsis screen is negative. Does the patient have a suspected source of infection? Yes: Other: eye. Risk Assessment: Do you want to hurt yourself or someone else? Patient reports no desire to harm self or others. Onset of symptoms was October 05, 2020. 14:15 Method Of Arrival: Ambulatory ll1 14:15 Acuity: STONE 4 ll1 Historical: - Allergies: 14:18 PENICILLINS; ll1 - PMHx: 14:18 Anxiety; Asthma; GERD; Hypertension; Migraines; ll1 - PSHx: 14:18 left cornea transplant; ll1 - Immunization history:: Flu vaccine is not up to date. - Social history:: Smoking status: Patient denies any tobacco usage or history of. Vital Signs: 14:15 BP 141 / 73; Pulse 69; Resp 17; Temp 97.8; Pulse Ox 96% ; Weight 97.52 kg; Height 5 ft. ll1 10 in. (177.80 cm); Pain 3/10; 14:15 Body Mass Index 30.85 (97.52 kg, 177.80 cm) ll1 ED Course: 14:07 Patient arrived in ED. ds1 14:18 Triage completed. ll1 14:18 Arm band placed on Patient notified of wait time. ll1 Administered Medications: No medications were administered Outcome: 15:50 Patient left the ED. ll1 Signatures: Theodora Torres ds1 Mamta Graham RN RN ll1 Corrections: (The following items were deleted from the chart) 14:19 14:15 Chief complaint: Patient states: R eye redness for 2 days. Irritation and crust ll1 eye this morning. ll1
[2020-10-06 16:38] VITALS: BP 141/73; TEMP 97.8; O2SAT 96
== END 2020-10-06 15:50 | disposition left against medical advice (07) ==
LOC: ER 14:03
DX: H57.89 Other specified disorders of eye and adnexa (principal); Z94.7 Corneal transplant status; Z53.21 Procedure and treatment not carried out due to patient leaving prior to being seen by health care provider; F41.9 Anxiety disorder, unspecified; J45.909 Unspecified asthma, uncomplicated; K21.9 Gastro-esophageal reflux disease without esophagitis; I10 Essential (primary) hypertension
CPT/HCPCS: 99281

== ENCOUNTER 2020-10-12 12:56 | Emergency (ER) | payer SELFPAY ==
--- NOTE | 2020-10-12 13:23 | ER ---
Nurse's Notes [facility] Name: Holden Morris Age: 35 yrs Sex: Male : 1985 Arrival Date: 10/12/2020 Time: 12:59 Bed 5 Private MD: Diagnosis: Encounter for examination and observation for unspecified reason Presentation: 10/12 13:10 Chief complaint: Patient states: "I just need a doctor's note. They won't let me come sv back to work without one. I ate a bad sandwich on Tuesday and my stomach was hurting but then I took some Pepto, and drank sprite and calvin bandar and now I feel better.". Coronavirus screen: Client denies travel out of the [place] in the last 14 days. At this time, the client does not indicate any symptoms associated with coronavirus-19. Ebola Screen: No symptoms or risks identified at this time. Risk Assessment: Do you want to hurt yourself or someone else? Patient reports no desire to harm self or others. Onset of symptoms was October 12, 2020. 13:10 Method Of Arrival: Ambulatory sv 13:10 Acuity: STONE 5 sv Triage Assessment: 13:12 General: Appears in no apparent distress. comfortable, Behavior is calm, cooperative, sv appropriate for age. Pain: Denies pain. Neuro: Level of Consciousness is awake, alert, obeys commands, Oriented to person, place, time, situation, Gait is steady. Respiratory: Airway is patent Respiratory effort is even, unlabored, Respiratory pattern is regular, symmetrical. GI: Patient currently denies abdominal pain, diarrhea, nausea, vomiting. Derm: Skin is normal. Historical: - Allergies: 13:12 PENICILLINS; sv - PMHx: 13:12 Anxiety; Asthma; GERD; Hypertension; Migraines; sv - PSHx: 13:12 left cornea transplant; sv - Immunization history:: Client reports having NOT received the Covid vaccine. Flu vaccine is not up to date. - Social history:: Smoking status: Patient denies any tobacco usage or history of. Screenin:16 Abuse screen: Denies threats or abuse. Denies injuries from another. Nutritional ss screening: No deficits noted. Tuberculosis screening: Never had TB. Fall Risk None identified. Assessment: 13:16 General: Appears in no apparent distress. comfortable, Behavior is calm, cooperative, ss Denies fever, feeling ill, fatigue, chills. Pain: Denies pain. Neuro: Level of Consciousness is awake, alert, obeys commands, Oriented to person, place, time, situation, Denies dizziness, photophobia. Cardiovascular: Capillary refill < 3 seconds is brisk in bilateral fingers. Respiratory: Airway is patent Respiratory effort is even, unlabored, Respiratory pattern is regular, symmetrical. GI: Bowel sounds present X 4 quads. Abd is soft and non tender X 4 quads. Patient currently denies diarrhea, nausea, vomiting. : No signs and/or symptoms were reported regarding the genitourinary system. EENT: Oral mucosa is moist. Derm: Skin is intact, is healthy with good turgor, Skin is dry. Musculoskeletal: Circulation, motion, and sensation intact. Range of motion: intact in all extremities, Swelling absent. Vital Signs: 13:10 Weight 97.52 kg; Height 5 ft. 10 in. (177.80 cm); Pain 0/10; sv 13:15 BP 137 / 89; Pulse 63; Resp 15; Pulse Ox 99% on R/A; Pain 0/10; ss 13:10 Body Mass Index 30.85 (97.52 kg, 177.80 cm) sv ED Course: 12:59 Patient arrived in ED. mr 13:10 Aidan Pacheco PA is PHCP. cp 13:10 Jose Ramon Tinajero MD is Attending Physician. cp 13:12 Triage completed. sv 13:12 Arm band placed on. sv 13:16 Patient has correct armband on for positive identification. Bed in low position. Call ss light in reach. 13:31 Janie Abreu RN is Primary Nurse. ss 13:31 No provider procedures requiring assistance completed. Patient did not have IV access ss during this emergency room visit. Administered Medications: No medications were administered Outcome: 13:22 Discharge ordered by MD. cp 13:31 Discharged to home ambulatory. ss 13:31 Condition: good 13:31 Discharge instructions given to patient, Instructed on discharge instructions, follow up and referral plans. Demonstrated understanding of instructions, follow-up care. 13:33 Patient left the ED. Signatures: Giuliana Saucedo RN RN GuilleAnika mr Janie Abreu RN RN Page, Aidan, PA PA cp
--- NOTE | 2020-10-12 13:23 | EDPHYS ---
Physician Documentation [facility] Name: Holden Morris Age: 35 yrs Sex: Male : 1985 Arrival Date: 10/12/2020 Time: 12:59 Bed 5 Private MD: ED Physician Jose Ramon Tinajero HPI: 10/12 13:18 This 35 yrs old Black Male presents to ER via Ambulatory with complaints of Note for cp Work. 13:18 Patient reports unable to return to work without excuse after missing work this past cp Tuesday. Patient reports he ate chicken salad sandwich and started having upset stomach. No complaints today. Historical: - Allergies: 13:12 PENICILLINS; sv - PMHx: 13:12 Anxiety; Asthma; GERD; Hypertension; Migraines; sv - PSHx: 13:12 left cornea transplant; sv - Immunization history:: Client reports having NOT received the Covid vaccine. Flu vaccine is not up to date. - Social history:: Smoking status: Patient denies any tobacco usage or history of. ROS: 13:19 All other systems are negative. cp Exam: 13:19 Head/Face: Normocephalic, atraumatic. cp 13:19 Constitutional: The patient appears in no acute distress, alert, awake, comfortable, non-toxic, well developed, well nourished. 13:19 Chest/axilla: Inspection: normal. 13:19 Cardiovascular: Rate: normal. 13:19 Respiratory: the patient does not display signs of respiratory distress, Respirations: normal, no use of accessory muscles, labored breathing, is not present. 13:19 Abdomen/GI: Inspection: abdomen appears normal, Palpation: abdomen is soft and non-tender, in all quadrants. 13:19 Neuro: Orientation: to person, place \T\ time. Mentation: is normal, Motor: moves all fours, strength is normal, Gait: is steady, at a normal pace, without difficulty. Vital Signs: 13:10 Weight 97.52 kg; Height 5 ft. 10 in. (177.80 cm); Pain 0/10; sv 13:15 BP 137 / 89; Pulse 63; Resp 15; Pulse Ox 99% on R/A; Pain 0/10; ss 13:10 Body Mass Index 30.85 (97.52 kg, 177.80 cm) sv MDM: 13:18 Patient medically screened. cp 13:20 Data reviewed: vital signs, nurses notes, and as a result, I will discharge patient. cp Administered Medications: No medications were administered Disposition: 13:30 Chart complete. cp 14:24 Co-signature as Attending Physician, Jose Ramon Tinajero MD. rn Disposition: 10/12/20 13:22 Discharged to Home. Impression: Encounter for examination and observation for unspecified reason. - Condition is Stable. - Discharge Instructions: Form - Return To Work. - Work release form, Medication Reconciliation Form, Thank You Letter, Antibiotic Education, Prescription Opioid Use form. - Follow up: Emergency Department; When: As needed; Reason: Worsening of condition. - Problem is new. - Symptoms are resolved. Signatures: Giuliana Saucedo RN RN Jose Ramon Tirado MD MD rn Smirch, Shelby, RN RN ss Page, Corey, PA PA cp Corrections: (The following items were deleted from the chart) 13:33 13:22 10/12/2020 13:22 Discharged to Home. Impression: Encounter for examination and ss observation for unspecified reason. Condition is Stable. Forms are Medication Reconciliation Form, Thank You Letter, Antibiotic Education, Prescription Opioid Use. Follow up: Emergency Department; When: As needed; Reason: Worsening of condition. Problem is new. Symptoms are resolved. cp
== END 2020-10-12 13:33 | disposition home or self-care (01) ==
LOC: ER 12:56
DX: Z02.79 Encounter for issue of other medical certificate (principal)
CPT/HCPCS: 99281

== ENCOUNTER 2020-12-11 12:15 | Emergency (ER) | payer SELFPAY ==
--- NOTE | 2020-12-11 13:16 | ER ---
Nurse's Notes [facility] Name: Holden Morris Age: 35 yrs Sex: Male : 1985 Arrival Date: 12/11/2020 Time: 12:17 Bed 7 Private MD: Diagnosis: Acute sinusitis Presentation: 12/11 12:36 Chief complaint: Patient states: my ears have been bothering me and I woke up and my iw throat was bothering me , back part of throat starts burning when he inhales air. Coronavirus screen: At this time, the client does not indicate any symptoms associated with coronavirus-19. Ebola Screen: Patient negative for fever greater than or equal to 101.5 degrees Fahrenheit, and additional compatible Ebola Virus Disease symptoms Patient denies exposure to infectious person. Patient denies travel to an Ebola-affected area in the 21 days before illness onset. No symptoms or risks identified at this time. Initial Sepsis Screen: Does the patient meet any 2 criteria? No. Patient's initial sepsis screen is negative. Does the patient have a suspected source of infection? No. Patient's initial sepsis screen is negative. Risk Assessment: Do you want to hurt yourself or someone else? Patient reports no desire to harm self or others. Onset of symptoms was November 30, 2020. 12:36 Method Of Arrival: Ambulatory iw 12:36 Acuity: STONE 4 iw Historical: - Allergies: 12:38 PENICILLINS; iw - PMHx: 12:38 Anxiety; Asthma; GERD; Hypertension; Migraines; iw - PSHx: 12:38 left cornea transplant; iw - Immunization history:: Client reports receiving the 1st dose of the Covid vaccine. - Social history:: Smoking status: Patient denies any tobacco usage or history of. Screenin:33 Abuse screen: Denies threats or abuse. Denies injuries from another. Nutritional sv screening: No deficits noted. Tuberculosis screening: No symptoms or risk factors identified. Fall Risk None identified. Assessment: 13:32 General: Appears in no apparent distress. well developed, Behavior is calm, sv cooperative, appropriate for age. Pain: Complains of pain in right ear and left ear. Neuro: Level of Consciousness is awake, alert, obeys commands, Oriented to person, place, time, situation, Gait is steady. Respiratory: Respiratory effort is even, unlabored. EENT: Reports pain when inhaling. Vital Signs: 12:36 BP 149 / 89; Pulse 76; Resp 16 S; Temp 97.1; Pulse Ox 99% on R/A; Weight 97.52 kg; iw Height 5 ft. 10 in. (177.80 cm); 12:36 Body Mass Index 30.85 (97.52 kg, 177.80 cm) iw ED Course: 12:17 Patient arrived in ED. ds1 12:37 Triage completed. iw 12:38 Arm band placed on. iw 12:42 Aidan Pacheco PA is PHCP. cp 12:42 Phillip Parsons MD is Attending Physician. cp 13:08 Ievtte Shanks, RN is Primary Nurse. hb 13:33 Patient has correct armband on for positive identification. sv 13:33 No provider procedures requiring assistance completed. Patient did not have IV access sv during this emergency room visit. Administered Medications: No medications were administered Outcome: 13:15 Discharge ordered by MD. cp 13:33 Discharged to home ambulatory. sv 13:33 Condition: stable 13:33 Discharge instructions given to patient, Instructed on discharge instructions, follow up and referral plans. medication usage, Demonstrated understanding of instructions, follow-up care, medications, Prescriptions given X 2. 13:33 Patient left the ED. sv Signatures: Giuliana Saucedo RN RN Theodora Torres ds1 Keshia Vernon RN RN Aidan Pacheco PA PA cp Baxter, Heather, RN NICOL hb
--- NOTE | 2020-12-11 13:16 | EDPHYS ---
Physician Documentation [facility] Name: Holden Morris Age: 35 yrs Sex: Male : 1985 Arrival Date: 12/11/2020 Time: 12:17 Bed 7 Private MD: ED Physician Phillip Parsons HPI: 12/11 13:07 This 35 yrs old Black Male presents to ER via Ambulatory with complaints of Ear Pain, cp Sore Throat. 13:07 The patient presents with pain, that is acute. The complaints affect the right ear and cp left ear. 13:07 Onset: The symptoms/episode began/occurred 2 week(s) ago. cp 13:07 Associated signs and symptoms: Pertinent positives: sore throat, rhinorrhea, sinus cp trouble. Severity of symptoms: in the emergency department the symptoms are unchanged despite home interventions. Historical: - Allergies: 12:38 PENICILLINS; iw - PMHx: 12:38 Anxiety; Asthma; GERD; Hypertension; Migraines; iw - PSHx: 12:38 left cornea transplant; iw - Immunization history:: Client reports receiving the 1st dose of the Covid vaccine. - Social history:: Smoking status: Patient denies any tobacco usage or history of. ROS: 13:11 Eyes: Negative for injury, pain, redness, and discharge. cp 13:11 Constitutional: Negative for body aches, chills, fever, poor PO intake. 13:11 ENT: Positive for ear pain, sinus congestion, sore throat. 13:11 Cardiovascular: Negative for chest pain. 13:11 Respiratory: Negative for cough, shortness of breath, wheezing. 13:11 Abdomen/GI: Negative for abdominal pain, nausea, vomiting, and diarrhea. 13:11 Neuro: Negative for headache. 13:11 All other systems are negative. Exam: 13:12 Head/Face: Normocephalic, atraumatic. cp 13:12 Constitutional: The patient appears in no acute distress, alert, awake, non-toxic, well developed, well nourished. 13:12 Eyes: Periorbital structures: appear normal, Conjunctiva: normal, no exudate, no injection, Sclera: no appreciated abnormality, Lids and lashes: appear normal, bilaterally. 13:12 ENT: External ear(s): are unremarkable, Nose: is normal, Mouth: Lips: moist, Oral mucosa: moist, Posterior pharynx: Airway: no evidence of obstruction, patent, Tonsils: no enlargement, no exudate, erythema, that is mild. 13:12 Neck: ROM/movement: Meningeal signs: are not present, Lymph nodes: no appreciated lymphadenopathy. 13:12 Chest/axilla: Inspection: normal. 13:12 Cardiovascular: Rate: normal, Rhythm: regular. 13:12 Respiratory: the patient does not display signs of respiratory distress, Respirations: normal, no use of accessory muscles, no retractions, labored breathing, is not present, Breath sounds: are clear throughout, no decreased breath sounds, no stridor, no wheezing. Vital Signs: 12:36 BP 149 / 89; Pulse 76; Resp 16 S; Temp 97.1; Pulse Ox 99% on R/A; Weight 97.52 kg; iw Height 5 ft. 10 in. (177.80 cm); 12:36 Body Mass Index 30.85 (97.52 kg, 177.80 cm) iw MDM: 13:02 Patient medically screened. cp 13:15 Data reviewed: vital signs, nurses notes. cp 13:15 Differential diagnosis: otitis media, otitis externa, sinusitis, strep throat. cp Counseling: I had a detailed discussion with the patient and/or guardian regarding: the historical points, exam findings, and any diagnostic results supporting the discharge/admit diagnosis, to return to the emergency department if symptoms worsen or persist or if there are any questions or concerns that arise at home. Administered Medications: No medications were administered Disposition: 13:59 Co-signature as Attending Physician, Phillip Parsons MD I agree with the assessment and kdr plan of care. Disposition: 12/11/20 13:15 Discharged to Home. Impression: Acute sinusitis. - Condition is Stable. - Discharge Instructions: Sinusitis, Adult. - Prescriptions for Biaxin 500 mg Oral Tablet - take 1 tablet by ORAL route every 12 hours for 10 days; 20 tablet. Albuterol Sulfate 90 mcg/actuation - inhale 1-2 puff by INHALATION route every 4-6 hours; 1 Inhaler. - Work release form, Medication Reconciliation Form, Thank You Letter, Antibiotic Education, Prescription Opioid Use form. - Follow up: Private Physician; When: 2 - 3 days; Reason: Worsening of condition. - Problem is new. - Symptoms are unchanged. Signatures: Giuliana Saucedo RN RN sv Phillip Parsons MD MD kdr Keshia Vernon RN RN iw Aidan Pacheco PA PA cp Corrections: (The following items were deleted from the chart) 13:33 13:15 12/11/2020 13:15 Discharged to Home. Impression: Acute sinusitis. Condition is sv Stable. Forms are Medication Reconciliation Form, Thank You Letter, Antibiotic Education, Prescription Opioid Use. Follow up: Private Physician; When: 2 - 3 days; Reason: Worsening of condition. Problem is new. Symptoms are unchanged. cp
[2020-12-11 13:38] VITALS: BP 149/89; TEMP 97.1; O2SAT 99
== END 2020-12-11 13:33 | disposition home or self-care (01) ==
LOC: ER 12:15
DX: J01.90 Acute sinusitis, unspecified (principal); I10 Essential (primary) hypertension; Z88.0 Allergy status to penicillin
CPT/HCPCS: 99282

== ENCOUNTER 2020-12-18 09:22 | Emergency (ER) | payer SELFPAY ==
[2020-12-18] MEDS ORDERED: METOCLOPRAMIDE 10 MG/2mL INJ ONE (10:25)
[2020-12-18] MEDS ORDERED: DIPHENHYDRAMINE 50 MG/ML VIAL ONE (10:25)
[2020-12-18] MEDS ORDERED: NA CHLORIDE 0.9% 1,000 ML ONE (10:25)
--- NOTE | 2020-12-18 11:13 | ER ---
Nurse's Notes [facility] Name: Holden Morris Age: 35 yrs Sex: Male : 1985 Arrival Date: 12/18/2020 Time: 09:23 Bed 30 Private MD: Saad Dove T Diagnosis: Headache Presentation: 12/18 09:42 Chief complaint: Patient states: c/o headache from allergies. rb3 09:42 Coronavirus screen: At this time, the client does not indicate any symptoms associated rb3 with coronavirus-19. Ebola Screen: Patient denies travel to an Ebola-affected area in the 21 days before illness onset. Initial Sepsis Screen: Does the patient meet any 2 criteria? No. Patient's initial sepsis screen is negative. Does the patient have a suspected source of infection? No. Patient's initial sepsis screen is negative. Risk Assessment: Do you want to hurt yourself or someone else? Patient reports no desire to harm self or others. Onset of symptoms is unknown. 09:42 Method Of Arrival: Ambulatory rb3 09:42 Acuity: STONE 4 rb3 Triage Assessment: 09:42 Headache History: The patient has had previous headaches and this one is similar to rb3 previous episodes. General: Appears in no apparent distress. comfortable, Behavior is calm, cooperative, Denies fever. Pain: Complains of pain in temples Pain currently is 7 out of 10 on a pain scale. Quality of pain is described as pressure, Also complains of no other associated symptoms. Neuro: Level of Consciousness is awake, alert, obeys commands, Oriented to person, place, time, situation. Cardiovascular: Patient's skin is warm and dry. Respiratory: Airway is patent Respiratory effort is even, unlabored, Respiratory pattern is regular, symmetrical. GI: No signs and/or symptoms were reported involving the gastrointestinal system. : No signs and/or symptoms were reported regarding the genitourinary system. Musculoskeletal: Range of motion: intact in all extremities. Historical: - Allergies: 09:42 PENICILLINS; rb3 - Home Meds: :42 carvedilol Oral [Active]; rb3 - PMHx: 09:42 Anxiety; Asthma; GERD; Hypertension; Migraines; rb3 - PSHx: 09:42 left cornea transplant; rb3 - Immunization history:: Adult Immunizations up to date, Client reports receiving the 1st dose of the Covid vaccine. - Social history:: Smoking status: Patient/guardian denies using. Screenin:42 Abuse screen: Denies threats or abuse. Nutritional screening: No deficits noted. rb3 Tuberculosis screening: No symptoms or risk factors identified. Fall Risk None identified. Assessment: 09:42 General: See triage assessment. rb3 10:40 Reassessment: Pt. complains of left ear pain. Provider notified. No new orders received rb3 at this time. 11:33 Reassessment: pt still drowsy, moved to bed 30. iw 12:00 Pain: Denies pain. iw Vital Signs: 09:42 BP 134 / 84; Pulse 62; Resp 19; Temp 98.1; Pulse Ox 99% ; Weight 97.52 kg; Height 5 ft. rb3 10 in. (177.80 cm); Pain 7/10; 10:40 BP 129 / 74; Pulse 85; Resp 18; Pulse Ox 99% ; rb3 11:37 BP 127 / 71; Pulse 81; Resp 17; Pulse Ox 99% ; rb3 09:42 Body Mass Index 30.85 (97.52 kg, 177.80 cm) rb3 ED Course: 09:23 Patient arrived in ED. am2 09:23 Saad Dove MD is Private Physician. am2 09:42 Zita Joaquin, NICOL is Primary Nurse. rb3 09:42 Lars Elena PA is PHCP. jr8 09:42 Arm band placed on right wrist. rb3 09:42 Patient has correct armband on for positive identification. Bed in low position. Call rb3 light in reach. Side rails up X 1. Pulse ox on. NIBP on. 09:43 Phillip Parsons MD is Attending Physician. jr8 09:49 Triage completed. rb3 10:13 Inserted saline lock: 20 gauge in left antecubital area, using aseptic technique. Blood ld1 collected. 11:11 Saad Dove MD is Referral Physician. jr8 12:01 No provider procedures requiring assistance completed. IV discontinued, intact, iw bleeding controlled, No redness/swelling at site. Pressure dressing applied. Administered Medications: 10:16 Drug: Reglan (metoCLOPramide) 10 mg Route: IVP; Site: left antecubital; rb3 10:30 Follow up: Response: No adverse reaction rb3 10:16 Drug: Benadryl (diphenhydrAMINE) 25 mg Route: IVP; Site: left antecubital; rb3 10:30 Follow up: Response: No adverse reaction rb3 10:16 Drug: NS 0.9% 1000 ml Route: IV; Rate: 1000 ml; Site: left antecubital; rb3 11:21 Follow up: IV Status: Completed infusion rb3 Outcome: 11:12 Discharge ordered by MD. stewart 12:01 Discharged to home ambulatory. iw 12:01 Condition: good 12:01 Discharge instructions given to patient, Instructed on discharge instructions, follow up and referral plans. Demonstrated understanding of instructions, follow-up care. 12:01 Patient left the ED. iw Signatures: Keshia Vernon RN NICOL iw Lars Elena PA PA jr8 Mia Cardozo Rebecca RN RN rb3 Alicia Roberts RN RN ld1
--- NOTE | 2020-12-18 11:13 | EDPHYS ---
Physician Documentation [facility] Name: Holden Morris Age: 35 yrs Sex: Male : 1985 Arrival Date: 12/18/2020 Time: 09:23 Bed 30 Private MD: Saad Dove T ED Physician Phillip Parsons HPI: 12/18 10:18 This 35 yrs old Black Male presents to ER via Ambulatory with complaints of Headache, jr8 Eye Problem. 10:18 Onset: The symptoms/episode began/occurred gradually, yesterday. Associated signs and jr8 symptoms: Pertinent positives: blurred vision. Severity of symptoms: At its worst the pain was moderate, in the emergency department the pain is unchanged. Headache History: Denies prior headaches. The patient has not experienced similar symptoms in the past. The patient has not recently seen a physician. Patient stated that he has been having a lot of problems with allergies lately. Now having headache to both temples and blurred vision . Historical: - Allergies: 09:42 PENICILLINS; rb3 - Home Meds: 09:42 carvedilol Oral [Active]; rb3 - PMHx: 09:42 Anxiety; Asthma; GERD; Hypertension; Migraines; rb3 - PSHx: 09:42 left cornea transplant; rb3 - Immunization history:: Adult Immunizations up to date, Client reports receiving the 1st dose of the Covid vaccine. - Social history:: Smoking status: Patient/guardian denies using. ROS: 10:18 Eyes: Positive for blurry vision, Negative for injury or acute deformity, itching, jr8 matting, pain, photophobia, redness, swelling, tearing, vision loss, visual disturbance. 10:18 Neuro: Positive for headache, Negative for altered mental status, dizziness, numbness, seizure activity, speech changes, tingling, weakness. 10:18 All other systems are negative. Exam: 10:18 Constitutional: This is a well developed, well nourished patient who is awake, alert, jr8 and in no acute distress. Head/Face: Normocephalic, atraumatic. Eyes: Pupils equal round and reactive to light, extra-ocular motions intact. Lids and lashes normal. Conjunctiva and sclera are non-icteric and not injected. Cornea within normal limits. Periorbital areas with no swelling, redness, or edema. Neck: Trachea midline, no thyromegaly or masses palpated, and no cervical lymphadenopathy. Supple, full range of motion without nuchal rigidity, or vertebral point tenderness. No Meningismus. Cardiovascular: Regular rate and rhythm with a normal S1 and S2. No gallops, murmurs, or rubs. Normal PMI, no JVD. No pulse deficits. Respiratory: Lungs have equal breath sounds bilaterally, clear to auscultation and percussion. No rales, rhonchi or wheezes noted. No increased work of breathing, no retractions or nasal flaring. Skin: Warm, dry with normal turgor. Normal color with no rashes, no lesions, and no evidence of cellulitis. MS/ Extremity: Pulses equal, no cyanosis. Neurovascular intact. Full, normal range of motion. Neuro: Awake and alert, GCS 15, oriented to person, place, time, and situation. Cranial nerves II-XII grossly intact. Motor strength 5/5 in all extremities. Sensory grossly intact. Cerebellar exam normal. Normal gait. Vital Signs: 09:42 BP 134 / 84; Pulse 62; Resp 19; Temp 98.1; Pulse Ox 99% ; Weight 97.52 kg; Height 5 ft. rb3 10 in. (177.80 cm); Pain 7/10; 10:40 BP 129 / 74; Pulse 85; Resp 18; Pulse Ox 99% ; rb3 11:37 BP 127 / 71; Pulse 81; Resp 17; Pulse Ox 99% ; rb3 09:42 Body Mass Index 30.85 (97.52 kg, 177.80 cm) rb3 MDM: 09:43 Patient medically screened. jr8 11:11 Differential diagnosis: cluster headache, hypertensive headache, hypoglycemia, jr8 intracerebral hemorrhage, meningitis, migraine, neoplasm, tension headache, traumatic injuries. Data reviewed: vital signs, nurses notes, and as a result, I will discharge patient. Data interpreted: Pulse oximetry: on room air is 99 %. Interpretation: normal. Counseling: I had a detailed discussion with the patient and/or guardian regarding: the historical points, exam findings, and any diagnostic results supporting the discharge/admit diagnosis, the need for outpatient follow up, a family practitioner, to return to the emergency department if symptoms worsen or persist or if there are any questions or concerns that arise at home. Response to treatment: the patient's symptoms have markedly improved after treatment. 12/18 09:58 Order name: IV; Complete Time: 10:13 jr8 Administered Medications: 10:16 Drug: Reglan (metoCLOPramide) 10 mg Route: IVP; Site: left antecubital; rb3 10:30 Follow up: Response: No adverse reaction rb3 10:16 Drug: Benadryl (diphenhydrAMINE) 25 mg Route: IVP; Site: left antecubital; rb3 10:30 Follow up: Response: No adverse reaction rb3 10:16 Drug: NS 0.9% 1000 ml Route: IV; Rate: 1000 ml; Site: left antecubital; rb3 11:21 Follow up: IV Status: Completed infusion rb3 Disposition: 12/19 07:14 Co-signature as Attending Physician, Phillip Parsons MD I agree with the assessment and kdr plan of care. Disposition: 12/18/20 11:12 Discharged to Home. Impression: Headache. - Condition is Stable. - Discharge Instructions: General Headache Without Cause, Sinus Headache, Migraine Headache, [id number]. - Work release form, Medication Reconciliation Form, Thank You Letter, Antibiotic Education, Prescription Opioid Use form. - Follow up: Saad Dove MD; When: 2 - 3 days; Reason: Recheck today's complaints, Continuance of care, Re-evaluation by your physician. - Problem is new. - Symptoms have improved. Signatures: Phillip Parsons MD MD [facility] Keshia Vernon RN RN iw Lars Elena PA PA jr8 Zita Joaquin, RN RN rb3 Corrections: (The following items were deleted from the chart) 12/18 12:01 11:12 12/18/2020 11:12 Discharged to Home. Impression: Headache. Condition is Stable. iw Forms are Medication Reconciliation Form, Thank You Letter, Antibiotic Education, Prescription Opioid Use. Follow up: Saad Dove; When: 2 - 3 days; Reason: Recheck today's complaints, Continuance of care, Re-evaluation by your physician. Problem is new. Symptoms have improved. jr8
[2020-12-18 12:12] VITALS: TEMP 98.1; O2SAT 99
[2020-12-18 12:14] VITALS: BP 129/74
== END 2020-12-18 12:01 | disposition home or self-care (01) ==
LOC: ER 09:22
DX: R51.9 Headache, unspecified (principal); I10 Essential (primary) hypertension; Z88.0 Allergy status to penicillin
CPT/HCPCS: J1200; J2765; J7030

== ENCOUNTER 2021-01-12 09:54 | Emergency (ER) | payer SELFPAY ==
--- NOTE | 2021-01-12 10:54 | RAD REPORT ---
EXAM DESCRIPTION: CT - [id number] - 01/12/2021 10:38 am CLINICAL HISTORY: Trauma, head and neck injury. dizziness;Pain;Numbness/tingling COMPARISON: No comparisons TECHNIQUE: Axial 5 mm thick images of the head were obtained. Axial 2 mm thick images of the cervical spine were obtained with sagittal and coronal reconstruction images generated and reviewed. All CT scans are performed using dose optimization technique as appropriate and may include automated exposure control or mA/KV adjustment according to patient size. FINDINGS: CT HEAD WITHOUT CONTRAST: No acute hemorrhage, hydrocephalus or extra-axial collection is identified.No areas of brain edema or midline shift. The paranasal sinuses and mastoids are clear.The calvarium is intact. CT CERVICAL SPINE WITHOUT CONTRAST: No fracture or subluxation.No prevertebral soft tissues swelling is identified. IMPRESSION: No acute intracranial or cervical spine findings.
--- NOTE | 2021-01-12 10:57 | RAD REPORT ---
EXAM DESCRIPTION: RAD - Chest Single View - 01/12/2021 10:47 am CLINICAL HISTORY: syncope Chest pain. COMPARISON: Chest Single View dated 07/23/2020; Chest Single View dated 05/16/2020; Chest Single View dated 04/06/2019; Chest Pa And Lat (2 Views) dated 03/17/2019 FINDINGS: Portable technique limits examination quality. The lungs are grossly clear. The heart is normal in size. No displaced fractures. IMPRESSION: No acute intrathoracic process suspected.
[2021-01-12 12:07] LABS: Absolute Lymphocytes (CBC) 2.5 K/uL (0.7-4.9); Basophils % 0.5 % (0-1.3); Hematocrit 42.1 % (39.6-49.0); Lymphocytes % 33.9 % (15.3-44.8); MPV 7.8 fL (7.6-11.3); RBC Red Blood Cell Count 5.69 M/uL (4.33-5.43)
[2021-01-12] MEDS ORDERED: MECLIZINE HCL 12.5 MG TAB ONE (12:07)
[2021-01-12] MEDS ORDERED: KETOROLAC 30 MG/ML INJ ONE (12:07)
[2021-01-12 12:19] LABS: BUN Blood Urea Nitrogen 12 mg/dL (7-18); Bicarbonate 29 mmol/L (21-32); Glucose Level 101 mg/dL (74-106); Magnesium 2.3 mg/dL (1.8-2.4); Potassium 4.2 mmol/L (3.5-5.1); Sodium Level 139 mmol/L (136-145)
--- NOTE | 2021-01-12 12:59 | ER ---
Nurse's Notes [facility] Name: Holden Morris Age: 36 yrs Sex: Male : 1985 Arrival Date: 01/12/2021 Time: 09:56 Bed 20 Private MD: Diagnosis: Dizziness and giddiness;Migraine without aura, not intractable Presentation: 01/12 09:59 Chief complaint: Patient states: Woke up this morning dizzy, walked to the bathroom, my ca1 balance was off, I fell face down on the floor. Reports pain on back of neck and base of head. Reports pain on L ankle, L leg and ringing of al ears couple days before the today. Coronavirus screen: Client denies travel out of the [place] in the last 14 days. At this time, the client does not indicate any symptoms associated with coronavirus-19. Ebola Screen: Patient negative for fever greater than or equal to 101.5 degrees Fahrenheit, and additional compatible Ebola Virus Disease symptoms Patient denies exposure to infectious person. Patient denies travel to an Ebola-affected area in the 21 days before illness onset. No symptoms or risks identified at this time. Initial Sepsis Screen: Does the patient meet any 2 criteria? No. Patient's initial sepsis screen is negative. Does the patient have a suspected source of infection? No. Patient's initial sepsis screen is negative. Risk Assessment: Do you want to hurt yourself or someone else? Patient reports no desire to harm self or others. Onset of symptoms was January 12, 2021. 09:59 Method Of Arrival: Ambulatory ca1 09:59 Acuity: STONE 3 ss Triage Assessment: 10:00 General: Appears distressed, uncomfortable, Behavior is cooperative, appropriate for bp age, anxious. Pain: Denies pain. 10:00 EENT: No deficits noted. Neuro: Level of Consciousness is awake, alert, obeys commands, bp Oriented to Appropriate for age. Cardiovascular: No deficits noted. Respiratory: No deficits noted. GI: No signs and/or symptoms were reported involving the gastrointestinal system. : No signs and/or symptoms were reported regarding the genitourinary system. Derm: No deficits noted. Musculoskeletal: No deficits noted. Historical: - Allergies: 10:02 PENICILLINS; ca1 - Home Meds: 10:02 carvedilol 3.125 mg oral tab 1 tab 2 times per day [Active]; ca1 - PMHx: 10:02 Anxiety; Asthma; GERD; Hypertension; Migraines; ca1 - PSHx: 10:02 Cornea transplant L eye; ca1 - Immunization history:: Client reports receiving the 2nd dose of the Covid vaccine, Client reports receiving the 1st dose of the Covid vaccine, Flu vaccine is not up to date. - Social history:: Smoking status: Patient denies any tobacco usage or history of. Screenin:00 Abuse screen: Denies threats or abuse. Denies injuries from another. Nutritional bp screening: No deficits noted. Tuberculosis screening: No symptoms or risk factors identified. Fall Risk None identified. Sepsis Screening:. Assessment: 10:00 General: SEE TRIAGE NOTE. bp 12:00 Reassessment: Patient is alert, oriented x 3, equal unlabored respirations, skin bp warm/dry/pink. Patient states symptoms have improved. 13:28 Reassessment: PT D/C HOME AMBULATORY WITH STEADY GAIT, DX WITH DIZZINESS AND GIDDINESS. bp Vital Signs: 09:59 BP 138 / 81; Pulse 75; Resp 18 S; Temp 97.2(TE); Pulse Ox 98% on R/A; Weight 104.33 kg ca1 (R); Height 5 ft. 10 in. (177.80 cm) (R); Pain 9/10; 11:05 BP 122 / 82 Supine; Pulse 78; bp 11:07 BP 121 / 91 Sitting; Pulse 67; bp 11:09 BP 122 / 82 Standing; Pulse 72; Resp 17; Pulse Ox 100% ; bp 12:00 BP 125 / 73; Pulse 70; Resp 16; Pulse Ox 98% ; bp 13:00 BP 129 / 66; Pulse 69; Resp 16; Pulse Ox 99% ; bp 09:59 Body Mass Index 33.00 (104.33 kg, 177.80 cm) ca1 ED Course: 09:56 Patient arrived in ED. mr 10:00 Patient has correct armband on for positive identification. Bed in low position. Call bp light in reach. Side rails up X2. 10:01 Triage completed. ca1 10:02 Arm band placed on right wrist. ca1 10:06 Lars Elena PA is PHCP. jr8 10:06 Jose Ramon Tinajero MD is Attending Physician. jr8 10:32 Wilbert, Aurelio, RN is Primary Nurse. bp 10:38 CT Head C Spine In Process Unspecified. EDMS 10:47 XRAY Chest (1 view) In Process Unspecified. EDMS 12:00 Inserted saline lock: 20 gauge in right antecubital area, using aseptic technique. bp Blood collected. 13:31 No provider procedures requiring assistance completed. IV discontinued, intact, bp bleeding controlled, No redness/swelling at site. Administered Medications: 12:00 Drug: Ketorolac 30 mg Route: IVP; Site: right antecubital; bp 13:09 Follow up: Response: No adverse reaction; Pain is decreased bp 12:00 Drug: Meclizine 25 mg Route: PO; bp 13:10 Follow up: Response: No adverse reaction bp Outcome: 12:59 Discharge ordered by . terry 13:51 Discharged to home ambulatory. bp 13:51 Condition: stable 13:51 Discharge instructions given to patient, Instructed on discharge instructions, follow up and referral plans. Demonstrated understanding of instructions, follow-up care. 13:54 Patient left the ED. bp Signatures: Dispatcher [employer] EDVT Anika Han mr Janie Abreu, RN RN ss Lars Elena PA PA jr8 Aurelio Atkins, RN RN bp Margaret Beckford RN RN ca1 Rosalinda Miranda RN RN tr6 Corrections: (The following items were deleted from the chart) 10:34 09:59 Chief complaint: Patient states: Woke up this morning dizzy, walked to the bathroom, my balance was off, I fell face down on the floor. Reports pain on back of neck and base of head. Reports pain on L ankle, L leg and ringing of al ears couple days before the today ca1 10:34 09:59 Acuity: STONE 4 ca1 ss 11:01 10:43 Inserted saline lock: 18 gauge in left antecubital area, using aseptic technique. tr6 Blood collected. tr6 13:54 13:52 General: Appears distressed, uncomfortable, Behavior is cooperative, appropriate bp for age, anxious, bp 13:54 13:52 Pain: Denies pain. bp bp
--- NOTE | 2021-01-12 13:00 | EDPHYS ---
Physician Documentation [facility] Name: Holden Morris Age: 36 yrs Sex: Male : 1985 Arrival Date: 01/12/2021 Time: 09:56 Bed 20 Private MD: ED Physician Jose Ramon Tinajero HPI: 01/12 10:37 This 36 yrs old Black Male presents to ER via Ambulatory with complaints of Dizziness. jr8 10:37 Patient stated that he woke up feeling dizziness and off balance this AM. Stated that jr8 he had syncopal episode and passed out for about 5 seconds. Has been having head pain going down base of neck . Severity of symptoms: At their worst the symptoms were moderate in the emergency department the symptoms are unchanged. The patient has not experienced similar symptoms in the past. The patient has not recently seen a physician. Historical: - Allergies: 10:02 PENICILLINS; ca1 - Home Meds: 10:02 carvedilol 3.125 mg oral tab 1 tab 2 times per day [Active]; ca1 - PMHx: 10:02 Anxiety; Asthma; GERD; Hypertension; Migraines; ca1 - PSHx: 10:02 Cornea transplant L eye; ca1 - Immunization history:: Client reports receiving the 2nd dose of the Covid vaccine, Client reports receiving the 1st dose of the Covid vaccine, Flu vaccine is not up to date. - Social history:: Smoking status: Patient denies any tobacco usage or history of. ROS: 10:37 Eyes: Negative for injury, pain, redness, and discharge, ENT: Negative for injury, jr8 pain, and discharge, Cardiovascular: Negative for chest pain, palpitations, and edema, Respiratory: Negative for shortness of breath, cough, wheezing, and pleuritic chest pain, Abdomen/GI: Negative for abdominal pain, nausea, vomiting, diarrhea, and constipation, Back: Negative for injury and pain, MS/Extremity: Negative for injury and deformity, Skin: Negative for injury, rash, and discoloration. 10:37 Neck: Positive for pain at rest, stiffness, Negative for injury or acute deformity, tenderness, bony tenderness. 10:37 Neuro: Positive for dizziness, headache, syncope. Exam: 10:37 Constitutional: This is a well developed, well nourished patient who is awake, alert, jr8 and in no acute distress. Head/Face: Normocephalic, atraumatic. Eyes: Pupils equal round and reactive to light, extra-ocular motions intact. Lids and lashes normal. Conjunctiva and sclera are non-icteric and not injected. Cornea within normal limits. Periorbital areas with no swelling, redness, or edema. ENT: Nares patent. No nasal discharge, no septal abnormalities noted. Tympanic membranes are normal and external auditory canals are clear. Oropharynx with no redness, swelling, or masses, exudates, or evidence of obstruction, uvula midline. Mucous membranes moist. Neck: Trachea midline, no thyromegaly or masses palpated, and no cervical lymphadenopathy. Supple, full range of motion without nuchal rigidity, or vertebral point tenderness. No Meningismus. Chest/axilla: Normal chest wall appearance and motion. Nontender with no deformity. No lesions are appreciated. Cardiovascular: Regular rate and rhythm with a normal S1 and S2. No gallops, murmurs, or rubs. Normal PMI, no JVD. No pulse deficits. Respiratory: Lungs have equal breath sounds bilaterally, clear to auscultation and percussion. No rales, rhonchi or wheezes noted. No increased work of breathing, no retractions or nasal flaring. Abdomen/GI: Soft, non-tender, with normal bowel sounds. No distension or tympany. No guarding or rebound. No evidence of tenderness throughout. Back: No spinal tenderness. No costovertebral tenderness. Full range of motion. Skin: Warm, dry with normal turgor. Normal color with no rashes, no lesions, and no evidence of cellulitis. MS/ Extremity: Pulses equal, no cyanosis. Neurovascular intact. Full, normal range of motion. Neuro: Awake and alert, GCS 15, oriented to person, place, time, and situation. Cranial nerves II-XII grossly intact. Motor strength 5/5 in all extremities. Sensory grossly intact. Cerebellar exam normal. Normal gait. Vital Signs: 09:59 BP 138 / 81; Pulse 75; Resp 18 S; Temp 97.2(TE); Pulse Ox 98% on R/A; Weight 104.33 kg ca1 (R); Height 5 ft. 10 in. (177.80 cm) (R); Pain 9/10; 11:05 BP 122 / 82 Supine; Pulse 78; bp 11:07 BP 121 / 91 Sitting; Pulse 67; bp 11:09 BP 122 / 82 Standing; Pulse 72; Resp 17; Pulse Ox 100% ; bp 12:00 BP 125 / 73; Pulse 70; Resp 16; Pulse Ox 98% ; bp 13:00 BP 129 / 66; Pulse 69; Resp 16; Pulse Ox 99% ; bp 09:59 Body Mass Index 33.00 (104.33 kg, 177.80 cm) ca1 MDM: 10:06 Patient medically screened. 8 12:57 Differential Diagnosis Covid, Migraine, cervicalgia, neoplasm, ICH, Meningitis, jr8 vertigo, HTN. Data reviewed: vital signs, nurses notes, lab test result(s), EKG, radiologic studies, CT scan. Data interpreted: Pulse oximetry: on room air is 100 %. Interpretation: normal. Counseling: I had a detailed discussion with the patient and/or guardian regarding: the historical points, exam findings, and any diagnostic results supporting the discharge/admit diagnosis, lab results, radiology results, the need for outpatient follow up, a family practitioner, to return to the emergency department if symptoms worsen or persist or if there are any questions or concerns that arise at home. Response to treatment: the patient's symptoms have mildly improved after treatment. ED course: No acute intracranial or cervical findings on CT. Labs stable along with VS. Patient feeling better. Will d/c home to f/u with PCP. 01/12 10:28 Order name: Basic Metabolic Panel; Complete Time: 12:32 01/12 10:28 Order name: CBC with Diff; Complete Time: 12:32 01/12 10:28 Order name: Magnesium; Complete Time: 12:32 01/12 10:28 Order name: XRAY Chest (1 view); Complete Time: 11:03 01/12 10:28 Order name: CT Head C Spine; Complete Time: 11:03 01/12 10:28 Order name: EKG; Complete Time: 10:29 01/12 10:28 Order name: Cardiac monitoring; Complete Time: 11:18 01/12 10:28 Order name: EKG - Nurse/Tech; Complete Time: 11:18 01/12 10:28 Order name: IV Saline Lock; Complete Time: 10:43 jr8 07/12 10:28 Order name: Labs collected and sent; Complete Time: 10:43 01/12 10:28 Order name: O2 Per Protocol; Complete Time: 10:43 01/12 10:28 Order name: O2 Sat Monitoring; Complete Time: 10:43 01/12 10:28 Order name: Orthostatics; Complete Time: 11:18 01/12 11:10 Order name: Labs - recollect needed; Complete Time: 13:09 ss Administered Medications: 12:00 Drug: Ketorolac 30 mg Route: IVP; Site: right antecubital; bp 13:09 Follow up: Response: No adverse reaction; Pain is decreased bp 12:00 Drug: Meclizine 25 mg Route: PO; bp 13:10 Follow up: Response: No adverse reaction bp Disposition: 16:59 Co-signature as Attending Physician, Jose Ramon Tinajero MD. rn Disposition Summary: 01/12/21 12:59 Discharge Ordered Location: Home jr Problem: new jr8 Symptoms: have improved jr8 Condition: Stable jr8 Diagnosis - Dizziness and giddiness jr8 - Migraine without aura, not intractable jr8 Followup: jr8 - With: Private Physician - When: 2 - 3 days - Reason: Recheck today's complaints, Continuance of care, Re-evaluation by your physician Discharge Instructions: - Discharge Summary Sheet jr8 - Dizziness jr8 - Vertigo jr8 Forms: - Medication Reconciliation Form jr8 - Thank You Letter jr8 - Antibiotic Education jr8 - Prescription Opioid Use jr8 - Work release form eb Signatures: Dispatcher [employer] EDMS Jose Ramon Tinajero MD MD rn Smirch, Shelby RN RN ss Lars Elena PA PA jr8 Aurelio Atkins RN RN bp Margaret Beckford RN RN ca1
[2021-01-12 14:13] VITALS: TEMP 97.2
[2021-01-12 14:21] VITALS: BP 129/66; O2SAT 99
--- NOTE | 2021-01-12 16:05 | EKG ---
Test Date: 2021-01-12 Test Time: 11:15:23 Heel Reducer: BP MEASUREMENT RESULTS: Intervals: Rate: 68 KS: 138 QRSD: 80 QT: 352 QTc: 374 [place]: P: 44 KS: 138 QRS: 24 T: 22 INTERPRETIVE STATEMENTS: Normal sinus rhythm Normal ECG Compared to ECG 05/16/2020 19:26:28 No significant changes Electronically Signed On 01-12-21 16:03:37 CDT by Christopher Pacheco
== END 2021-01-12 13:54 | disposition home or self-care (01) ==
LOC: ER 09:54
DX: G43.009 Migraine without aura, not intractable, without status migrainosus (principal); I10 Essential (primary) hypertension; Z88.0 Allergy status to penicillin
CPT/HCPCS: 36415; 70450; 71045; 72125; 80048; 83735; 85025; 93005; 96374; 99284

== ENCOUNTER 2021-01-22 14:07 | Emergency (ER) | payer SELFPAY ==
--- NOTE | 2021-01-22 14:25 | EDPHYS ---
Physician Documentation [facility] Name: Holden Morris Age: 36 yrs Sex: Male : 1985 Arrival Date: 01/22/2021 Time: 14:07 Bed Waiting Private MD: Aidan Stevenson HPI: 01/22 15:10 This 36 yrs old Black Male presents to ER via Ambulatory with complaints of Ear Pain. kb 15:10 The patient presents with pain. The complaints affect the right ear and left ear. kb Onset: The symptoms/episode began/occurred today. Modifying factors: The symptoms are alleviated by nothing, the symptoms are aggravated by nothing. Associated signs and symptoms: The patient has no apparent associated signs or symptoms. Severity of symptoms: At their worst the symptoms were mild in the emergency department the symptoms are unchanged. The patient has not experienced similar symptoms in the past. The patient has not recently seen a physician. Pt states he came in a week ago for bilateral ear pain. States he finished his antibiotics and was feeling better, but today had some pain in left ear so he didn't go to work. States they told him he had to have a work note to return and he couldn't get into his dr so he came back here. Reports pain in both ears, worse in left. . Historical: - Allergies: 14:26 PENICILLINS; hb - Home Meds: 14:26 carvedilol 3.125 mg Oral tab 1 tab 2 times per day [Active]; hb - PMHx: 14:26 Anxiety; Asthma; GERD; Hypertension; Migraines; hb - PSHx: 14:26 Cornea transplant L eye; hb - Immunization history:: Adult Immunizations up to date. - Social history:: Smoking status: Patient denies any tobacco usage or history of. ROS: 15:13 Constitutional: Negative for fever, chills, and weight loss. kb 15:13 ENT: Positive for ear pain. 15:13 All other systems are negative. Exam: 15:13 Constitutional: This is a well developed, well nourished patient who is awake, alert, kb and in no acute distress. Head/Face: Normocephalic, atraumatic. ENT: Moist Mucous membranes Respiratory: Respirations even and unlabored. No increased work of breathing, no retractions or nasal flaring. Skin: Warm, dry with normal turgor. Normal color. MS/ Extremity: Pulses equal, no cyanosis. Neurovascular intact. Full, normal range of motion. Neuro: Awake and alert, GCS 15, oriented to person, place, time, and situation. Moves all extremities. Normal gait. Psych: Awake, alert, with orientation to person, place and time. Behavior, mood, and affect are within normal limits. 15:13 ENT: External ear(s): are unremarkable, Ear canal(s): are normal, TM's: are normal, Posterior pharynx: erythema, that is mild. Vital Signs: 14:25 BP 151 / 90; Pulse 67; Resp 16; Temp 98; Pulse Ox 100% on R/A; Pain 6/10; hb MDM: 14:22 Patient medically screened. kb 15:09 Data reviewed: vital signs, nurses notes. Data interpreted: Pulse oximetry: on room air kb is 100 %. Interpretation: normal. Counseling: I had a detailed discussion with the patient and/or guardian regarding: the historical points, exam findings, and any diagnostic results supporting the discharge/admit diagnosis, the need for outpatient follow up, an ENT specialist, to return to the emergency department if symptoms worsen or persist or if there are any questions or concerns that arise at home. Administered Medications: No medications were administered Disposition: 01/23 09:06 Co-signature as Attending Physician, Aidan Carranza MD I agree with the assessment and [facility] plan of care. Disposition Summary: 01/22/21 14:24 Discharge Ordered Location: Home kb Condition: Stable kb Diagnosis - Otalgia, bilateral kb Followup: kb - With: Emergency Department - When: As needed - Reason: Worsening of condition Followup: kb - With: Private Physician - When: 2 - 3 days - Reason: Recheck today's complaints, Continuance of care, Re-evaluation by your physician Discharge Instructions: - Discharge Summary Sheet kb - Earache, Adult kb Forms: - Medication Reconciliation Form kb - Thank You Letter kb - Work release form kb - Antibiotic Education kb - Prescription Opioid Use kb Signatures: Eve Murray, TOY-C TOY-Aidan Morris MD MD cha Baxter, Heather, RN RN Corrections: (The following items were deleted from the chart) 01/22 15:13 15:13 ENT: External ear(s): are unremarkable, Ear canal(s): are normal, TM's: are kb normal, kb
--- NOTE | 2021-01-22 15:20 | ER ---
Nurse's Notes [facility] Name: Holden Morris Age: 36 yrs Sex: Male : 1985 Arrival Date: 01/22/2021 Time: 14:07 Bed Waiting Private MD: Diagnosis: Otalgia, bilateral Presentation: 01/22 14:25 Chief complaint: Bilateral ear pain x 3 days. Coronavirus screen: At this time, the hb client does not indicate any symptoms associated with coronavirus-19. Ebola Screen: No symptoms or risks identified at this time. Risk Assessment: Do you want to hurt yourself or someone else? Patient reports no desire to harm self or others. Onset of symptoms was January 19, 2021. 14:25 Method Of Arrival: Ambulatory 14:25 Acuity: STONE 4 14:29 Initial Sepsis Screen: Does the patient meet any 2 criteria? No. Patient's initial hb sepsis screen is negative. Does the patient have a suspected source of infection? No. Patient's initial sepsis screen is negative. Historical: - Allergies: 14:26 PENICILLINS; hb - Home Meds: 14:26 carvedilol 3.125 mg Oral tab 1 tab 2 times per day [Active]; hb - PMHx: 14:26 Anxiety; Asthma; GERD; Hypertension; Migraines; hb - PSHx: 14:26 Cornea transplant L eye; hb - Immunization history:: Adult Immunizations up to date. - Social history:: Smoking status: Patient denies any tobacco usage or history of. Assessment: 14:28 General: Appears in no apparent distress. Behavior is calm, cooperative. Pain: Pain hb currently is 0 out of 10 on a pain scale. at worst was 6 out of 10 on a pain scale. Neuro: Level of Consciousness is awake, alert, obeys commands, Oriented to person, place, time, situation. EENT: Reports bilat ear pain. Vital Signs: 14:25 BP 151 / 90; Pulse 67; Resp 16; Temp 98; Pulse Ox 100% on R/A; Pain 6/10; hb ED Course: 14:07 Patient arrived in ED. ds1 14:22 Eve Murray FNP-C [facility]. kb 14:22 Aidan Carranza MD is Attending Physician. kb 14:26 Triage completed. hb 14:26 Arm band placed on. hb 14:29 Patient has correct armband on for positive identification. hb Administered Medications: No medications were administered Outcome: 14:24 Discharge ordered by . kb 14:27 Discharged to home ambulatory. hb 14:27 Condition: stable 14:27 Discharge instructions given to patient, Instructed on discharge instructions, follow up and referral plans. medication usage, Demonstrated understanding of instructions, follow-up care, medications. 15:20 Patient left the ED. kb Signatures: Eve Murray FNP-C [employer]-Theodora Coughlin ds1 Ivette Shanks, RN RN hb
[2021-01-22 15:24] VITALS: BP 151/90; TEMP 98; O2SAT 100
== END 2021-01-22 15:20 | disposition home or self-care (01) ==
LOC: ER 14:07
DX: H92.03 Otalgia, bilateral (principal); I10 Essential (primary) hypertension; Z88.0 Allergy status to penicillin
CPT/HCPCS: 99281

== ENCOUNTER 2021-02-21 14:29 | Emergency (ER) | payer SELFPAY ==
[2021-02-21 15:15] LABS: Urine Blood Trace-lysed (Negative); Urine Glucose Negative (Negative); Urine Protein 2+ (Negative); Urine Specific Gravity >=1.030 (1.005-1.030); Urine pH 5.5 (5.0-7.0)
[2021-02-21] MEDS ORDERED: MORPHINE 4 MG/ML SYR ONE (15:40)
[2021-02-21] MEDS ORDERED: NA CHLORIDE 0.9% 1,000 ML ONE (15:40)
[2021-02-21] MEDS ORDERED: ONDANSETRON 4 MG/2 ML VIAL ONE (15:40)
[2021-02-21 16:17] LABS: Potassium 4.2 mmol/L (3.5-5.1); Sodium Level 140 mmol/L (136-145)
[2021-02-21 16:24] LABS: Absolute Lymphocytes (CBC) 1.4 K/uL (0.7-4.9); Basophils % 0.4 % (0-1.3); Hematocrit 41.2 % (39.6-49.0); Lymphocytes % 12.4 % (15.3-44.8); MPV 7.7 fL (7.6-11.3); RBC Red Blood Cell Count 5.52 M/uL (4.33-5.43)
[2021-02-21 16:30] LABS: Bicarbonate 24 mmol/L (21-32)
[2021-02-21 16:31] LABS: ALT/SGPT 48 U/L (12-78); AST/SGOT 31 U/L (15-37); BUN Blood Urea Nitrogen 19 mg/dL (7-18); Bilirubin Total 0.3 mg/dL (0.2-1.0); Glucose Level 94 mg/dL (74-106)
[2021-02-21 16:32] LABS: Albumin 4.5 g/dL (3.4-5.0); Bilirubin Direct < 0.1 mg/dL (0-0.2); Lipase 44 U/L (73-393); Protein, Total 9.1 g/dL (6.4-8.2)
[2021-02-21 16:34] LABS: Alkaline Phosphatase 79 U/L (45-117); Creatine Phosphokinase 632 U/L (39-308)
--- NOTE | 2021-02-21 16:38 | RAD REPORT ---
EXAM DESCRIPTION: CT - Stone Protocol - 02/21/2021 4:12 pm CLINICAL HISTORY: Abdominal pain. Left flank pain COMPARISON: 2019 TECHNIQUE: Computed axial tomography of the abdomen pelvis was obtained without oral or IV contrast. Lack of IV and oral contrast limits evaluation of solid organs, bowel, and vessels. Coronal reformat palmer images were obtained and reviewed. All CT scans are performed using dose optimization technique as appropriate and may include automated exposure control or mA/KV adjustment according to patient size. FINDINGS: A renal calculus is not seen. An ureteral calculus is not noted. A bladder calculus is not present. The liver, spleen, pancreas and adrenals appear grossly normal There is no evidence of diverticulitis. 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
--- NOTE | 2021-02-21 17:24 | ER ---
Nurse's Notes [facility] Name: Holden Morris Age: 36 yrs Sex: Male : 1985 Arrival Date: 02/21/2021 Time: 14:31 Bed 10 Private MD: Saad Dove T Diagnosis: Flank Pain Presentation: 02/21 14:50 Chief complaint: Patient states: Sudden left flank and back pain starting at 1430. kg Coronavirus screen: Client denies travel out of the [place] in the last 14 days. At this time, unable to obtain information related to travel outside the [place] Ebola Screen: Patient negative for fever greater than or equal to 101.5 degrees Fahrenheit, and additional compatible Ebola Virus Disease symptoms Patient denies exposure to infectious person. Patient denies travel to an Ebola-affected area in the 21 days before illness onset. Initial Sepsis Screen: Does the patient meet any 2 criteria? No. Patient's initial sepsis screen is negative. Does the patient have a suspected source of infection? No. Patient's initial sepsis screen is negative. Risk Assessment: Do you want to hurt yourself or someone else? Patient reports no desire to harm self or others. 14:50 Method Of Arrival: Ambulatory kg 14:50 Acuity: STONE 3 kg 14:50 Onset of symptoms was February 21, 2021 at 14:30. kg Triage Assessment: 14:52 General: Appears in no apparent distress. Behavior is calm, cooperative, appropriate kg for age, quiet. Pain: Complains of pain in Left flank, Left back Historical: - Allergies: 14:52 PENICILLINS; kg - Home Meds: 14:52 carvedilol 3.125 mg Oral tab 1 tab 2 times per day [Active]; kg - PMHx: 14:52 Hypertension; Migraines; GERD; Asthma; Anxiety; kg - PSHx: 14:52 Cornea transplant L eye; kg - Immunization history:: Adult Immunizations not up to date, Client reports receiving the 2nd dose of the Covid vaccine, Date received: January 2021 Client reports receiving the 1st dose of the Covid vaccine, January 2021. - Social history:: Smoking status: Patient denies any tobacco usage or history of. Screenin:55 Abuse screen: Denies threats or abuse. Denies injuries from another. Nutritional kg screening: No deficits noted. Tuberculosis screening: No symptoms or risk factors identified. Fall Risk None identified. Assessment: 15:18 General: Appears in no apparent distress. comfortable, Behavior is calm, cooperative. vg1 Pain: Complains of pain in posterior aspect of left lateral abdomen and left lower quadrant Pain currently is 10 out of 10 on a pain scale. Neuro: Level of Consciousness is awake, alert, obeys commands, Oriented to person, place, time, situation. Cardiovascular: Patient's skin is warm and dry. Respiratory: Airway is patent Respiratory effort is even, unlabored. GI: Abdomen is round non-distended, Abdomen is tender to palpation in left lower quadrant Patient currently denies nausea, vomiting. : Denies burning with urination, urinary frequency. EENT: No signs and/or symptoms were reported regarding the EENT system. Derm: Skin is intact, is healthy with good turgor. Musculoskeletal: Circulation, motion, and sensation intact. 16:48 Reassessment: Patient appears in no apparent distress at this time. Patient and/or vg1 family updated on plan of care and expected duration. Pain level reassessed. Patient is alert, oriented x 3, equal unlabored respirations, skin warm/dry/pink. Pt states pain has subsided to 7/10. 17:42 Reassessment: Patient appears in no apparent distress at this time. Patient and/or vg1 family updated on plan of care and expected duration. Pain level reassessed. Patient is alert, oriented x 3, equal unlabored respirations, skin warm/dry/pink. Patient states feeling better. Vital Signs: 14:50 BP 138 / 91; Pulse 100; Resp 20; Temp 97.4(TE); Pulse Ox 97% on R/A; Weight 104.78 kg kg (R); Height 5 ft. 7 in. (170.18 cm); Pain 10/10; 15:35 BP 153 / 76; Pulse 97; Resp 16; Pulse Ox 98% on R/A; vg1 17:30 BP 150 / 81; Pulse 90; Resp 16; Pulse Ox 99% on R/A; vg1 14:50 Body Mass Index 36.18 (104.78 kg, 170.18 cm) kg ED Course: 14:31 Patient arrived in ED. am2 14:32 Saad Dove MD is Private Physician. am2 14:52 Triage completed. kg 14:52 Arm band placed on right wrist. kg 14:55 Patient has correct armband on for positive identification. kg 14:58 Manjit Salinas PA is PHCP. jmm 14:58 Aidan Carranza MD is Attending Physician. jmm 15:08 Lis Hawthorne, RN is Primary Nurse. vg1 15:20 Initial lab(s) drawn, by ok, sent to lab. Inserted saline lock: 20 gauge in left vg1 antecubital area, using aseptic technique. ,using aseptic technique. completed by [facility] Blood collected. 16:12 CT Stone Protocol In Process Unspecified. EDMS 17:22 Saad Dove MD is Referral Physician. [facility] 17:43 No provider procedures requiring assistance completed. IV discontinued, intact, vg1 bleeding controlled, No redness/swelling at site. Pressure dressing applied. Administered Medications: 15:28 Drug: NS 0.9% 1000 ml Route: IV; Rate: 1 bolus; Site: left antecubital; vg1 17:44 Follow up: IV Status: Completed infusion; IV Intake: 1000ml vg1 15:29 Drug: Zofran (Ondansetron) 4 mg Route: IVP; Site: left antecubital; vg1 16:48 Follow up: Response: No adverse reaction vg1 15:31 Drug: morphine 4 mg Route: IVP; Site: left antecubital; vg1 16:48 Follow up: Response: No adverse reaction; Pain is decreased vg1 Intake: 17:44 IV: 1000ml; Total: 1000ml. vg1 Outcome: 17:23 Discharge ordered by MD. [facility] 17:43 Discharged to home ambulatory. vg1 17:43 Condition: stable 17:43 Discharge instructions given to patient, Instructed on discharge instructions, follow up and referral plans. medication usage, Demonstrated understanding of instructions, follow-up care, medications, Prescriptions given X 2. 17:43 Patient left the ED. vg1 Signatures: Dispatcher [employer] EDMS Manjit Salinas PA PA jmm Moreno, Amanda am2 Lis Hawthorne, RN RN vg1 Zandra Hernandez RN RN kg
--- NOTE | 2021-02-21 17:24 | EDPHYS ---
Physician Documentation [facility] Name: Holden Morris Age: 36 yrs Sex: Male : 1985 Arrival Date: 02/21/2021 Time: 14:31 Bed 10 Private MD: Saad Dove T ED Physician Aidan Carranza HPI: 02/21 15:03 This 36 yrs old Black Male presents to ER via Ambulatory with complaints of Flank Pain jmm - left. 15:03 The patient complains of pain in the left flank. Onset: The symptoms/episode jmm began/occurred acutely, just prior to arrival. Modifying factors: The symptoms are alleviated by nothing. the symptoms are aggravated by movement. Associated signs and symptoms: Pertinent negatives: diarrhea, fever, vomiting. The patient has not experienced similar symptoms in the past. 36-year-old male with history of hypertension the presents emerged department with complaints of left flank pain symptoms began acutely while outside. Patient states he was drinking a lot of water outside. Patient denies vomiting, shortness of breath, hematuria, diarrhea.. Historical: - Allergies: 14:52 PENICILLINS; kg - Home Meds: 14:52 carvedilol 3.125 mg Oral tab 1 tab 2 times per day [Active]; kg - PMHx: 14:52 Hypertension; Migraines; GERD; Asthma; Anxiety; kg - PSHx: 14:52 Cornea transplant L eye; kg - Immunization history:: Adult Immunizations not up to date, Client reports receiving the 2nd dose of the Covid vaccine, Date received: January 2021 Client reports receiving the 1st dose of the Covid vaccine, January 2021 Modern. - Social history:: Smoking status: Patient denies any tobacco usage or history of. ROS: 15:03 Constitutional: Negative for fever, chills, and weight loss, Cardiovascular: Negative jmm for chest pain, palpitations, and edema, Respiratory: Negative for shortness of breath, cough, wheezing, and pleuritic chest pain. 15:03 Abdomen/GI: Positive for abdominal pain. 15:03 Back: Positive for flank pain, on the left. 15:03 All other systems are negative. Exam: 15:03 Head/Face: atraumatic. Eyes: EOMI, no conjunctival erythema appreciated ENT: Moist jmm Mucus Membranes Neck: Trachea midline, Supple Chest/axilla: Normal chest wall appearance and motion. Cardiovascular: Regular rate and rhythm. No edema appreciated Respiratory: Normal respirations, no respiratory distress appreciated 15:03 Skin: General appearance color normal MS/ Extremity: Moves all extremities, no obvious deformities appreciated, no edema noted to the lower extremities Neuro: Awake and alert, normal gait Psych: Behavior is normal, Mood is normal, Patient is cooperative and pleasant 15:03 Constitutional: The patient appears alert, awake, uncomfortable. 15:03 Abdomen/GI: Inspection: abdomen appears normal, Bowel sounds: normal, Palpation: soft, mild abdominal tenderness, in the left lower quadrant. 15:03 Back: CVA tenderness, that is mild, is noted on the left. Vital Signs: 14:50 BP 138 / 91; Pulse 100; Resp 20; Temp 97.4(TE); Pulse Ox 97% on R/A; Weight 104.78 kg kg (R); Height 5 ft. 7 in. (170.18 cm); Pain 10/10; 15:35 BP 153 / 76; Pulse 97; Resp 16; Pulse Ox 98% on R/A; vg1 17:30 BP 150 / 81; Pulse 90; Resp 16; Pulse Ox 99% on R/A; vg1 14:50 Body Mass Index 36.18 (104.78 kg, 170.18 cm) kg MDM: 15:03 Patient medically screened. [facility] 17:21 Data reviewed: vital signs, nurses notes. Counseling: I had a detailed discussion with patrick the patient and/or guardian regarding: the historical points, exam findings, and any diagnostic results supporting the discharge/admit diagnosis, lab results, radiology results, the need for outpatient follow up, to return to the emergency department if symptoms worsen or persist or if there are any questions or concerns that arise at home. ED course: Patient states feeling much better. There is a slight elevation of the CPK level patient might have a mild rhabdomyolysis but has no vomiting. Patient encouraged to increase fluid intake over the next few days and avoid being outside. Patient is otherwise given strict return precautions. Patient understood and agrees to plan of care.. 02/21 15:14 Order name: Urine Dipstick-Ancillary; Complete Time: 15:17 EDID 02/21 15:15 Order name: Basic Metabolic Panel [facility] 02/21 15:15 Order name: CBC with Diff [facility] 02/21 15:15 Order name: Hepatic Function [facility] 02/21 15:15 Order name: Lipase [facility] 02/21 15:15 Order name: Basic Metabolic Panel; Complete Time: 16:36 [facility] 02/21 15:15 Order name: CBC with Automated Diff; Complete Time: 16:25 [facility] 02/21 15:15 Order name: Liver (Hepatic) Function; Complete Time: 16:36 [facility] 02/21 15:15 Order name: Lipase; Complete Time: 16:36 [facility] 02/21 15:16 Order name: CPK; Complete Time: 16:36 [facility] 02/21 15:54 Order name: CT Stone Protocol; Complete Time: 16:44 [facility] 02/21 15:15 Order name: IV Saline Lock; Complete Time: 15:36 [facility] 02/21 15:15 Order name: Labs collected and sent; Complete Time: 15:36 [facility] 02/21 15:15 Order name: Urine Dipstick-Ancillary (obtain specimen); Complete Time: 15:18 [facility] Administered Medications: 15:28 Drug: NS 0.9% 1000 ml Route: IV; Rate: 1 bolus; Site: left antecubital; vg1 17:44 Follow up: IV Status: Completed infusion; IV Intake: 1000ml vg1 15:29 Drug: Zofran (Ondansetron) 4 mg Route: IVP; Site: left antecubital; vg1 16:48 Follow up: Response: No adverse reaction vg1 15:31 Drug: morphine 4 mg Route: IVP; Site: left antecubital; vg1 16:48 Follow up: Response: No adverse reaction; Pain is decreased vg1 Disposition: 02/22 09:21 Co-signature as Attending Physician, Aidan Carranza MD I agree with the assessment and lorna plan of care. Disposition Summary: 02/21/21 17:23 Discharge Ordered Location: Home jm Condition: Stable jm Diagnosis - Flank Pain [facility] Followup: jm - With: Saad Dove MD - When: 2 - 3 days - Reason: Recheck today's complaints, Continuance of care, Re-evaluation by your physician Discharge Instructions: - Discharge Summary Sheet jmm - Flank Pain, Adult jmm - Rhabdomyolysis jm Forms: - Medication Reconciliation Form jm - Thank You Letter jmm - Antibiotic Education jmm - Prescription Opioid Use jmm Prescriptions: - Carvedilol 6.25 mg Oral Tablet - take 1 tablet by ORAL route 2 times per day with food; 60 tablet; Refills: 0, [facility] Product Selection Permitted - orphenadrine citrate 100 mg Oral Tablet Sustained Release - take 1 tablet by ORAL route 2 times per day As needed; 20 tablet; Refills: 0, [facility] Product Selection Permitted Signatures: Dispatcher [employer] Aidan Goodman MD MD cha Mickail, Joel, PA PA jmm Garcia, Victoria, RN RN vg1 Zandra Hernandez RN RN kg
[2021-02-21 17:51] VITALS: TEMP 97.4
[2021-02-21 17:54] VITALS: BP 150/81; O2SAT 99
== END 2021-02-21 17:43 | disposition home or self-care (01) ==
LOC: ER 14:29
DX: R10.9 Unspecified abdominal pain (principal); I10 Essential (primary) hypertension; Z88.0 Allergy status to penicillin
CPT/HCPCS: 36415; 74176; 76377; 80048; 80076; 81003; 82550; 83690; 85025; 96361; 96374; 96375; 99284; J2405; J7030

== ENCOUNTER 2021-03-10 11:34 | Emergency (ER) | payer SELFPAY ==
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
[2021-03-10 15:02] VITALS: TEMP 97.9; O2SAT 100
[2021-03-10 15:03] VITALS: BP 137/75
== END 2021-03-10 14:45 | disposition home or self-care (01) ==
LOC: ER 11:34
DX: M25.512 Pain in left shoulder (principal); I10 Essential (primary) hypertension; Z88.0 Allergy status to penicillin
CPT/HCPCS: 99282

== ENCOUNTER 2021-03-12 09:20 | Emergency (ER) | payer SELFPAY ==
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
[2021-03-12 10:18] VITALS: BP 125/90; TEMP 97.6; O2SAT 99
== END 2021-03-12 10:13 | disposition home or self-care (01) ==
LOC: ER 09:20
DX: G62.9 Polyneuropathy, unspecified (principal); I10 Essential (primary) hypertension; F41.9 Anxiety disorder, unspecified; Z88.0 Allergy status to penicillin
CPT/HCPCS: 99283

== ENCOUNTER 2021-09-04 08:53 | Emergency (ER) | payer SELFPAY ==
--- NOTE | 2021-09-04 09:32 | ER ---
Nurse's Notes [facility] Name: Holden Morris Age: 36 yrs Sex: Male : 1985 Arrival Date: 09/04/2021 Time: 08:53 Bed 20 Private MD: Saad Dove T Diagnosis: Vomiting Presentation: 09/04 09:14 Chief complaint: Patient states: was vomiting at work yesterday but today has not had iw any vomiting, feels queasy and also his hands have been hurting while he's at work, is worried that he has arthritis. Coronavirus screen: At this time, the client does not indicate any symptoms associated with coronavirus-19. Ebola Screen: Patient negative for fever greater than or equal to 101.5 degrees Fahrenheit, and additional compatible Ebola Virus Disease symptoms Patient denies exposure to infectious person. Patient denies travel to an Ebola-affected area in the 21 days before illness onset. No symptoms or risks identified at this time. Initial Sepsis Screen: Does the patient meet any 2 criteria? No. Patient's initial sepsis screen is negative. Does the patient have a suspected source of infection? No. Patient's initial sepsis screen is negative. Risk Assessment: Do you want to hurt yourself or someone else? Patient reports no desire to harm self or others. Onset of symptoms was September 03, 2021. 09:14 Method Of Arrival: Ambulatory iw 09:14 Acuity: STONE 4 iw Triage Assessment: 09:29 General: Appears in no apparent distress. Behavior is calm, cooperative. GI: Reports amaya nausea, vomiting, N/V resolved. Historical: - Allergies: 09:16 PENICILLINS; young; iw - Home Meds: 09:29 carvedilol 3.125 mg Oral tab 1 tab 2 times per day [Active]; amaya - PMHx: 09:16 Anxiety; Asthma; GERD; Hypertension; Migraines; iw - PSHx: 09:16 Cornea transplant L eye; iw - Immunization history:: Client reports having NOT received the Covid vaccine. - Social history:: Smoking status: Patient reports the use of cigarette tobacco products. - Family history:: not pertinent. Screenin:27 Abuse screen: Denies threats or abuse. Denies injuries from another. Nutritional amaya screening: No deficits noted. Tuberculosis screening: No symptoms or risk factors identified. Fall Risk None identified. Assessment: 09:27 Pain: Complains of pain in right hand and left hand. GI: Abdomen is non-distended, amaya Bowel sounds present X 4 quads. Reports nausea, vomiting, N/V resolved. Musculoskeletal: Reports pain in right hand and left hand. Vital Signs: 09:14 BP 125 / 62; Pulse 77; Resp 16; Temp 98.0; Pulse Ox 97% on R/A; Weight 97.52 kg; Height iw 5 ft. 10 in. (177.80 cm); 09:14 Body Mass Index 30.85 (97.52 kg, 177.80 cm) iw ED Course: 08:53 Patient arrived in ED. am2 08:54 Saad Dove MD is Private Physician. am2 09:09 Aidan Carranza MD is Attending Physician. lorna 09:16 Triage completed. iw 09:16 Arm band placed on. iw 09:27 Patient has correct armband on for positive identification. Bed in low position. amaya 09:27 No provider procedures requiring assistance completed. amaya 09:31 Saad Dove MD is Referral Physician. lorna Administered Medications: 09:30 CANCELLED (Physician Discretion): NS 0.9% 1000 ml IV at 1 bolus Per protocol; 1000 mL amaya bolus 09:30 CANCELLED (Physician Discretion): Zofran (Ondansetron) 4 mg IVP once; over 2 minutes amaya Outcome: 09:32 Discharge ordered by . lorna 09:39 Patient left the ED. iw Signatures: Aidan Carranza MD MD cha Williams, Irene, RN RN Mia Cardozo 2 Ivette Hernandez RN RN amaya Corrections: (The following items were deleted from the chart) 09:29 09:16 Home Meds: None; iw amaya
--- NOTE | 2021-09-04 09:32 | EDPHYS ---
Physician Documentation [facility] Name: Holden Morris Age: 36 yrs Sex: Male : 1985 Arrival Date: 09/04/2021 Time: 08:53 Bed 20 Private MD: Saad Dove T ED Physician Aidan Carranza HPI: 09/04 09:27 This 36 yrs old Black Male presents to ER via Ambulatory with complaints of Vomiting, lorna hand tingling. 09:27 The patient presents to the emergency department with nausea, vomiting, that is lorna continuous. Onset: The symptoms/episode began/occurred 2 day(s) ago. Possible causes: unknown. The symptoms are aggravated by nothing. The symptoms are alleviated by nothing. Associated signs and symptoms: The patient has no apparent associated signs or symptoms. Severity of symptoms: At their worst the symptoms were mild in the emergency department the symptoms are unchanged. The patient has not experienced similar symptoms in the past. Historical: - Allergies: 09:16 PENICILLINS; young; iw - Home Meds: 09:29 carvedilol 3.125 mg Oral tab 1 tab 2 times per day [Active]; amaya - PMHx: 09:16 Anxiety; Asthma; GERD; Hypertension; Migraines; iw - PSHx: 09:16 Cornea transplant L eye; iw - Immunization history:: Client reports having NOT received the Covid vaccine. - Social history:: Smoking status: Patient reports the use of cigarette tobacco products. - Family history:: not pertinent. ROS: 09:27 Constitutional: Negative for fever, chills, and weight loss, Eyes: Negative for injury, lorna pain, redness, and discharge, ENT: Negative for injury, pain, and discharge, Neck: Negative for injury, pain, and swelling, Cardiovascular: Negative for chest pain, palpitations, and edema, Respiratory: Negative for shortness of breath, cough, wheezing, and pleuritic chest pain, Back: Negative for injury and pain, : Negative for injury, bleeding, discharge, and swelling, MS/Extremity: Negative for injury and deformity, Skin: Negative for injury, rash, and discoloration, Neuro: Negative for headache, weakness, numbness, tingling, and seizure, Psych: Negative for depression, anxiety, suicide ideation, homicidal ideation, and hallucinations, Allergy/Immunology: Negative for hives, rash, and allergies, Endocrine: Negative for neck swelling, polydipsia, polyuria, polyphagia, and marked weight changes, Hematologic/Lymphatic: Negative for swollen nodes, abnormal bleeding, and unusual bruising. 09:27 Abdomen/GI: Positive for nausea and vomiting. Exam: :27 Constitutional: This is a well developed, well nourished patient who is awake, alert, lorna and in no acute distress. Head/Face: Normocephalic, atraumatic. Eyes: Pupils equal round and reactive to light, extra-ocular motions intact. Lids and lashes normal. Conjunctiva and sclera are non-icteric and not injected. Cornea within normal limits. Periorbital areas with no swelling, redness, or edema. ENT: Nares patent. No nasal discharge, no septal abnormalities noted. Tympanic membranes are normal and external auditory canals are clear. Oropharynx with no redness, swelling, or masses, exudates, or evidence of obstruction, uvula midline. Mucous membranes moist. Neck: Trachea midline, no thyromegaly or masses palpated, and no cervical lymphadenopathy. Supple, full range of motion without nuchal rigidity, or vertebral point tenderness. No Meningismus. Chest/axilla: Normal chest wall appearance and motion. Nontender with no deformity. No lesions are appreciated. Cardiovascular: Regular rate and rhythm with a normal S1 and S2. No gallops, murmurs, or rubs. Normal PMI, no JVD. No pulse deficits. Respiratory: Lungs have equal breath sounds bilaterally, clear to auscultation and percussion. No rales, rhonchi or wheezes noted. No increased work of breathing, no retractions or nasal flaring. Abdomen/GI: Soft, non-tender, with normal bowel sounds. No distension or tympany. No guarding or rebound. No evidence of tenderness throughout. Back: No spinal tenderness. No costovertebral tenderness. Full range of motion. Male : Normal genitalia with no discharge or lesions. Skin: Warm, dry with normal turgor. Normal color with no rashes, no lesions, and no evidence of cellulitis. MS/ Extremity: Pulses equal, no cyanosis. Neurovascular intact. Full, normal range of motion. Neuro: Awake and alert, GCS 15, oriented to person, place, time, and situation. Cranial nerves II-XII grossly intact. Motor strength 5/5 in all extremities. Sensory grossly intact. Cerebellar exam normal. Normal gait. Psych: Awake, alert, with orientation to person, place and time. Behavior, mood, and affect are within normal limits. Vital Signs: 09:14 BP 125 / 62; Pulse 77; Resp 16; Temp 98.0; Pulse Ox 97% on R/A; Weight 97.52 kg; Height iw 5 ft. 10 in. (177.80 cm); 09:14 Body Mass Index 30.85 (97.52 kg, 177.80 cm) MDM: 09:09 Patient medically screened. lorna 09/04 09:10 Order name: EKG; Complete Time: 09:11 lorna Administered Medications: 09:30 CANCELLED (Physician Discretion): NS 0.9% 1000 ml IV at 1 bolus Per protocol; 1000 mL amaya bolus 09:30 CANCELLED (Physician Discretion): Zofran (Ondansetron) 4 mg IVP once; over 2 minutes amaya Disposition Summary: 09/04/21 09:32 Discharge Ordered Location: Home lorna Problem: new lorna Symptoms: have improved lorna Condition: Stable lorna Diagnosis - Vomiting lorna Followup: lorna - With: Saad Dove MD - When: 2 - 3 days - Reason: Recheck today's complaints, Continuance of care, Re-evaluation by your physician Discharge Instructions: - Discharge Summary Sheet lorna - Vomiting, Adult lorna Forms: - Medication Reconciliation Form lorna - Thank You Letter lorna - Antibiotic Education lorna - Prescription Opioid Use lorna - Work release form Signatures: Dispatcher [employer] [facility] Aidan Carranza MD MD cha Williams, Irene RN RN Radha-Ivette Powers RN RN Corrections: (The following items were deleted from the chart) : 09:16 Home Meds: None; amaya : 09:10 IV Saline Lock ordered. lorna amaya 09:10 Labs collected and sent ordered. [facility] amaya 09:10 Urine Dipstick-Ancillary ordered. [facility] amaya : 09:10 NS 0.9% 1000 ml IV at 1 bolus Per protocol; 1000 mL bolus ordered. lorna amaya : 09:10 Zofran (Ondansetron) 4 mg IVP once; over 2 minutes ordered. [facility] amaya 09:10 EKG - Nurse/Tech ordered. lorna amaya
[2021-09-04 09:44] VITALS: BP 125/62; TEMP 98; O2SAT 97
== END 2021-09-04 09:39 | disposition home or self-care (01) ==
LOC: ER 08:53
DX: R11.10 Vomiting, unspecified (principal); I10 Essential (primary) hypertension; Z72.0 Tobacco use; Z88.0 Allergy status to penicillin
CPT/HCPCS: 99281

== ENCOUNTER 2021-10-02 09:31 | Emergency (ER) | payer SELFPAY ==
[2021-10-02 12:20] LABS: SARS-COV-2 RT PCR NEGATIVE (NEGATIVE)
--- NOTE | 2021-10-02 12:28 | ER ---
Nurse's Notes [facility] Name: Holden Morris Age: 36 yrs Sex: Male : 1985 Arrival Date: 10/02/2021 Time: 09:31 Bed 10 Private MD: Saad Dove T Diagnosis: Acute pharyngitis, unspecified Presentation: 10/02 10:00 Chief complaint: Patient states: Body aches for 3 days. Pt reports known covid ab2 exposure. Coronavirus screen: Vaccine status: Patient reports receiving the 2nd dose of the covid vaccine. Client denies travel out of the [place] in the last 14 days. Client presents with at least one sign or symptom that may indicate coronavirus-19. Standard/surgical mask placed on the client. Provider contacted for isolation considerations. Ebola Screen: Patient negative for fever greater than or equal to 101.5 degrees Fahrenheit, and additional compatible Ebola Virus Disease symptoms Patient denies exposure to infectious person. Patient denies travel to an Ebola-affected area in the 21 days before illness onset. No symptoms or risks identified at this time. Initial Sepsis Screen: Does the patient meet any 2 criteria? No. Patient's initial sepsis screen is negative. Does the patient have a suspected source of infection? No. Patient's initial sepsis screen is negative. Risk Assessment: Do you want to hurt yourself or someone else? Patient reports no desire to harm self or others. Onset of symptoms is unknown. 10:00 Method Of Arrival: Ambulatory ab2 10:00 Acuity: STONE 4 ab2 Triage Assessment: 11:00 General: Appears. Pain: Denies pain. iw Historical: - Allergies: 10:02 PENICILLINS; young; ab2 - PMHx: 10:02 Anxiety; Asthma; GERD; Hypertension; Migraines; ab2 - PSHx: 10:02 Cornea transplant L eye; ab2 - Immunization history:: Adult Immunizations up to date. - Social history:: Smoking status: Patient denies any tobacco usage or history of. Screenin:28 Abuse screen: Denies threats or abuse. Denies injuries from another. Nutritional iw screening: No deficits noted. Tuberculosis screening: No symptoms or risk factors identified. Fall Risk None identified. Assessment: 10:02 General: Appears in no apparent distress. comfortable, Behavior is calm, cooperative, ab2 appropriate for age. Neuro: Level of Consciousness is awake, alert, obeys commands, Oriented to person, place, time, situation, Appropriate for age. Respiratory: Airway is patent Respiratory effort is even, unlabored, Breath sounds are clear. GI: No deficits noted. EENT: Throat. 11:28 Reassessment: Patient appears in no apparent distress at this time. Patient and/or iw family updated on plan of care and expected duration. Pain level reassessed. Patient is alert, oriented x 3, equal unlabored respirations, skin warm/dry/pink. Vital Signs: 10:00 BP 139 / 77; Pulse 79; Resp 17; Temp 98.1; Pulse Ox 100% on R/A; Weight 97.52 kg; ab2 Height 5 ft. 10 in. (177.80 cm); Pain 5/10; 10:00 Body Mass Index 30.85 (97.52 kg, 177.80 cm) ab2 ED Course: 09:31 Patient arrived in ED. am2 09:31 Saad Dove MD is Private Physician. am2 09:45 [facility] Murray [facility]-C [facility]. kb 09:45 Jose Ramon Tinajero MD is Attending Physician. kb 10:02 Triage completed. ab2 10:02 Arm band placed on right wrist. ab2 10:05 Patient has correct armband on for positive identification. iw 11:28 Keshia Vernon, RN is Primary Nurse. iw 11:28 No provider procedures requiring assistance completed. Patient did not have IV access iw during this emergency room visit. Administered Medications: No medications were administered Outcome: 12:28 Discharge ordered by MD. kb 12:48 Discharged to home ambulatory. iw 12:48 Condition: good 12:48 Discharge instructions given to patient, Instructed on discharge instructions, follow up and referral plans. Demonstrated understanding of instructions, follow-up care. 12:49 Patient left the ED. iw Signatures: Eve Murray FNP-C FNP-Keshia Gandhi, RN RN Mia Cardozo am2 Michele Carl ab2
--- NOTE | 2021-10-02 12:28 | EDPHYS ---
Physician Documentation [facility] Name: Holden Morris Age: 36 yrs Sex: Male : 1985 Arrival Date: 10/02/2021 Time: 09:31 Bed 10 Private MD: Saad Dove T ED Physician Jose Ramon Tinajero HPI: 10/02 10:47 This 36 yrs old Black Male presents to ER via Ambulatory with complaints of Sore kb Throat, Headache. 10:47 The patient presents with sore throat. The patient describes throat pain as constant. kb Onset: The symptoms/episode began/occurred 3 day(s) ago. Severity of symptoms: At their worst the symptoms were moderate, in the emergency department the symptoms are unchanged. Modifying factors: The symptoms are alleviated by nothing, the symptoms are aggravated by nothing, Patient's oral intake status: good The patient has had contact with sick. Associated signs and symptoms: Pertinent positives: headache, Sore throat Pertinent negatives fever, flu-like symptoms. The patient has not experienced similar symptoms in the past. The patient has not recently seen a physician. Pt reports sore throat and headache for 3 days. States he was exposed to covid so needed to get checked. Historical: - Allergies: 10:02 PENICILLINS; young; ab2 - PMHx: 10:02 Anxiety; Asthma; GERD; Hypertension; Migraines; ab2 - PSHx: 10:02 Cornea transplant L eye; ab2 - Immunization history:: Adult Immunizations up to date. - Social history:: Smoking status: Patient denies any tobacco usage or history of. ROS: 10:44 Constitutional: Negative for fever, chills, and weight loss. kb 10:44 ENT: Positive for sore throat. 10:44 Neuro: Positive for headache. 10:44 All other systems are negative. Exam: 10:47 Constitutional: This is a well developed, well nourished patient who is awake, alert, kb and in no acute distress. Head/Face: Normocephalic, atraumatic. ENT: Moist Mucous membranes Cardiovascular: Regular rate and rhythm with a normal S1 and S2. No gallops, murmurs, or rubs. No pulse deficits. Respiratory: Respirations even and unlabored. No increased work of breathing. Talking in full sentences Skin: Warm, dry with normal turgor. Normal color. MS/ Extremity: Pulses equal, no cyanosis. Neurovascular intact. Full, normal range of motion. Neuro: Awake and alert, GCS 15, oriented to person, place, time, and situation. Moves all extremities. Normal gait. Psych: Awake, alert, with orientation to person, place and time. Behavior, mood, and affect are within normal limits. Vital Signs: 10:00 BP 139 / 77; Pulse 79; Resp 17; Temp 98.1; Pulse Ox 100% on R/A; Weight 97.52 kg; ab2 Height 5 ft. 10 in. (177.80 cm); Pain 5/10; 10:00 Body Mass Index 30.85 (97.52 kg, 177.80 cm) ab2 MDM: 09:45 Patient medically screened. kb 10:44 Data reviewed: vital signs, nurses notes. Data interpreted: Pulse oximetry: on room air kb is 100 %. Interpretation: normal. 12:26 Counseling: I had a detailed discussion with the patient and/or guardian regarding: the kb historical points, exam findings, and any diagnostic results supporting the discharge/admit diagnosis, lab results, the need for outpatient follow up, a family practitioner, to return to the emergency department if symptoms worsen or persist or if there are any questions or concerns that arise at home. 10/02 09:45 Order name: COVID-19/FLU A+B (Document "Date of Onset" if Symptomatic); Complete Time: kb 12:26 10/02 09:45 Order name: Strep; Complete Time: 12:07 kb 10/02 12:08 Order name: Throat Culture EDMS Administered Medications: No medications were administered Disposition: 16:30 Co-signature as Attending Physician, Jose Ramon Tinajero MD. rn Disposition Summary: 10/02/21 12:28 Discharge Ordered Location: Home kb Condition: Stable kb Diagnosis - Acute pharyngitis, unspecified kb Followup: kb - With: Emergency Department - When: As needed - Reason: Worsening of condition Followup: kb - With: Private Physician - When: 2 - 3 days - Reason: Recheck today's complaints, Continuance of care, Re-evaluation by your physician Discharge Instructions: - Discharge Summary Sheet kb - Pharyngitis, Ohum-en-Dxem kb Forms: - Medication Reconciliation Form kb - Thank You Letter kb - Antibiotic Education kb - Prescription Opioid Use kb - Work release form iw Signatures: Dispatcher [employer] Eve Crenshaw, CHANNEL MAN-C CHANNEL MAN-Ckb Jose Ramon Tinajero MD MD rn Bleininger, Alexis ab2
[2021-10-02 13:02] VITALS: BP 139/77; TEMP 98.1; O2SAT 100
== END 2021-10-02 12:49 | disposition home or self-care (01) ==
LOC: ER 09:31
DX: J02.9 Acute pharyngitis, unspecified (principal); R51.9 Headache, unspecified; I10 Essential (primary) hypertension; Z88.0 Allergy status to penicillin; Z20.822 Contact with and (suspected) exposure to COVID-19
CPT/HCPCS: 0240U; 87070; 87081; 99281

== ENCOUNTER 2021-10-10 14:32 | Emergency (ER) | payer SELFPAY ==
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
--- NOTE | 2021-10-10 17:10 | ER ---
Nurse's Notes [facility] Name: Holden Morris Age: 36 yrs Sex: Male : 1985 Arrival Date: 10/10/2021 Time: 15:30 Bed 13 Private MD: Diagnosis: Unspecified injury of head, initial encounter;Cervicalgia Presentation: 10/10 15:32 Chief complaint: Patient states: "yesterday I was at work and I was walking and missed ab2 judged the height of a pipe and I walked right into it. It hit me square in the forehead" Pt c/o headache and neck pain. Pt denies LOC. Coronavirus screen: Vaccine status: Patient reports receiving the 2nd dose of the covid vaccine. Client denies travel out of the [place] in the last 14 days. At this time, the client does not indicate any symptoms associated with coronavirus-19. Ebola Screen: Patient negative for fever greater than or equal to 101.5 degrees Fahrenheit, and additional compatible Ebola Virus Disease symptoms Patient denies exposure to infectious person. Patient denies travel to an Ebola-affected area in the 21 days before illness onset. No symptoms or risks identified at this time. 15:32 Method Of Arrival: Ambulatory ab2 15:34 Mechanism of Injury: resulted from Pt walked into a pipe and hit his head. Initial ab2 Sepsis Screen: Does the patient meet any 2 criteria? No. Patient's initial sepsis screen is negative. Does the patient have a suspected source of infection? No. Patient's initial sepsis screen is negative. Risk Assessment: Do you want to hurt yourself or someone else? Patient reports no desire to harm self or others. 15:34 Acuity: STONE 4 ab2 18:33 Onset of symptoms. [facility] Triage Assessment: 15:35 General: Appears in no apparent distress. comfortable, Behavior is calm, cooperative, ab2 appropriate for age. Pain: Complains of pain in head and neck Pain currently is 9 out of 10 on a pain scale. Neuro: Level of Consciousness is awake, alert, obeys commands, Oriented to person, place, time, situation, Appropriate for age Flight Agent are equal bilaterally Moves all extremities. Gait is steady, Speech is normal, Facial droop on right, Reports headache. Cardiovascular: No deficits noted. Denies chest pain, shortness of breath, Patient's skin is warm and dry. Respiratory: Airway is patent Respiratory effort is even, unlabored, Respiratory pattern is regular, symmetrical. GI: No deficits noted. No signs and/or symptoms were reported involving the gastrointestinal system. : No deficits noted. No signs and/or symptoms were reported regarding the genitourinary system. Derm: Skin is intact, is healthy with good turgor. Historical: - Allergies: 15:34 PENICILLINS; young; ab2 - PMHx: 15:34 Anxiety; Asthma; GERD; Hypertension; Migraines; ab2 - PSHx: 15:34 Cornea transplant L eye; ab2 - Immunization history:: Adult Immunizations up to date. - Social history:: Smoking status: Patient denies any tobacco usage or history of. Screenin:39 Abuse screen: Denies threats or abuse. jh6 15:39 Nutritional screening: No deficits noted. Tuberculosis screening: No symptoms or risk jh6 factors identified. Fall Risk None identified. Assessment: 15:39 General: Appears in no apparent distress. Behavior is calm, cooperative, Smells of. jh6 15:39 Pain: Complains of pain in base of the skull Pain radiates to forehead Pain currently jh6 is 5 out of 10 on a pain scale. Quality of pain is described as squeezing, throbbing, Pain began 1 day ago. Is continuous, Alleviated by nothing. Aggravated by increased activity, Noted to be quiet/stoic. Neuro: No deficits noted. Derm: No deficits noted. Musculoskeletal: No deficits noted. 16:30 Reassessment: No changes from previously documented assessment. jh6 17:30 Reassessment: Patient and/or family updated on plan of care and expected duration. Pain jh6 level reassessed. Patient is alert, oriented x 3, equal unlabored respirations, skin warm/dry/pink. Pain: Pain currently is 4 out of 10 on a pain scale. Neuro: No deficits noted. Vital Signs: 15:32 BP 138 / 95; Pulse 65; Resp 17; Temp 97.9(TE); Pulse Ox 99% on R/A; Weight 97.52 kg; ab2 Height 5 ft. 10 in. (177.80 cm); Pain 9/10; 16:00 BP 130 / 82; Pulse 68; Resp 18; Pulse Ox 100% ; jh6 18:00 BP 127 / 82; Pulse 70; Resp 18; Temp 97.6(TE); Pulse Ox 100% ; Pain 3/10; jh6 15:32 Body Mass Index 30.85 (97.52 kg, 177.80 cm) ab2 Malina Coma Score: 15:34 Eye Response: spontaneous(4). Verbal Response: oriented(5). Motor Response: obeys ab2 commands(6). Total: 15. 16:06 Eye Response: spontaneous(4). Verbal Response: oriented(5). Motor Response: obeys kb commands(6). Total: 15. 16:13 Eye Response: spontaneous(4). Verbal Response: oriented(5). Motor Response: obeys kb commands(6). Total: 15. ED Course: 15:30 Patient arrived in ED. j6 15:31 Eve Murray FNP-C is [facility]. kb 15:31 Aidan Carranza MD is Attending Physician. kb 15:34 Triage completed. ab2 15:35 Arm band placed on right wrist. ab2 15:40 Priscila Alfredo, RN is Primary Nurse. jh6 16:41 CT Head C Spine In Process Unspecified. EDMS 17:55 No provider procedures requiring assistance completed. 6 18:00 Patient did not have IV access during this emergency room visit. [facility] Administered Medications: No medications were administered Outcome: 17:09 Discharge ordered by . kb 18:00 Discharged to home ambulatory. 6 18:00 Condition: good 18:00 Discharge instructions given to patient, Instructed on discharge instructions, follow up and referral plans. Demonstrated understanding of instructions, follow-up care. 18:33 Patient left the ED. [facility] Signatures: Dispatcher [employer] EDWI Eve Murray FNP-C FNP-Ckb Jeffries, Jennifer j6 Priscila Alfredo, RN RN [facility] Michele Carl ab2
--- NOTE | 2021-10-10 17:10 | EDPHYS ---
Physician Documentation [facility] Name: Holden Morris Age: 36 yrs Sex: Male : 1985 Arrival Date: 10/10/2021 Time: 15:30 Bed 13 Private MD: ED Physician Aidan Carranza HPI: 10/10 16:11 This 36 yrs old Black Male presents to ER via Ambulatory with complaints of Head kb Injury-Adult, Neck Injury. 16:13 The patient or guardian reports pain. The complaints affect the left side of the back kb of head, left occipital area, left base of the skull, right side of the back of head, right occipital area and right base of the skull. Context of injury: The problem was sustained at work, resulted from a direct blow. Onset: The symptoms/episode began/occurred yesterday. Associated signs and symptoms: Loss of consciousness: This patient did not experience any loss of consciousness. Pertinent positives: headache, neck pain. Severity of symptoms: At their worst the symptoms were moderate, in the emergency department the symptoms are unchanged. The patient has not experienced similar symptoms in the past. The patient has not recently seen a physician. Pt reports he was walking at work yesterday and ran into a pole. Reports headache, dizziness, and neck pain that started immediately afterwards, went home and took ibuprofen and rested. Today still having sharp neck pain, headache and intermittent dizziness. . Historical: - Allergies: 15:34 PENICILLINS; young; ab2 - PMHx: 15:34 Anxiety; Asthma; GERD; Hypertension; Migraines; ab2 - PSHx: 15:34 Cornea transplant L eye; ab2 - Immunization history:: Adult Immunizations up to date. - Social history:: Smoking status: Patient denies any tobacco usage or history of. ROS: 16:07 Constitutional: Negative for fever, chills, and weight loss. kb 16:07 Neck: Positive for pain with movement, pain at rest. 16:07 Neuro: Positive for dizziness, headache. 16:07 All other systems are negative. Exam: 16:07 Constitutional: This is a well developed, well nourished patient who is awake, alert, kb and in no acute distress. Head/Face: Normocephalic, atraumatic. ENT: Moist Mucous membranes Respiratory: Respirations even and unlabored. No increased work of breathing. Talking in full sentences Skin: Warm, dry with normal turgor. Normal color. MS/ Extremity: Pulses equal, no cyanosis. Neurovascular intact. Full, normal range of motion. Neuro: Awake and alert, GCS 15, oriented to person, place, time, and situation. Moves all extremities. Normal gait. Psych: Awake, alert, with orientation to person, place and time. Behavior, mood, and affect are within normal limits. 16:07 Neck: External neck: tenderness, that is mild, of the left mid cervical area, right mid cervical area, left trapezius, lower cervical area and right trapezius. Vital Signs: 15:32 BP 138 / 95; Pulse 65; Resp 17; Temp 97.9(TE); Pulse Ox 99% on R/A; Weight 97.52 kg; ab2 Height 5 ft. 10 in. (177.80 cm); Pain 9/10; 16:00 BP 130 / 82; Pulse 68; Resp 18; Pulse Ox 100% ; jh6 18:00 BP 127 / 82; Pulse 70; Resp 18; Temp 97.6(TE); Pulse Ox 100% ; Pain 3/10; jh6 15:32 Body Mass Index 30.85 (97.52 kg, 177.80 cm) ab2 Toone Coma Score: 15:34 Eye Response: spontaneous(4). Verbal Response: oriented(5). Motor Response: obeys ab2 commands(6). Total: 15. 16:06 Eye Response: spontaneous(4). Verbal Response: oriented(5). Motor Response: obeys kb commands(6). Total: 15. 16:13 Eye Response: spontaneous(4). Verbal Response: oriented(5). Motor Response: obeys kb commands(6). Total: 15. MDM: 15:39 Patient medically screened. kb 16:06 Data reviewed: vital signs, nurses notes. Data interpreted: Pulse oximetry: on room air kb is 99 %. Interpretation: normal. 17:09 Counseling: I had a detailed discussion with the patient and/or guardian regarding: the kb historical points, exam findings, and any diagnostic results supporting the discharge/admit diagnosis, radiology results, the need for outpatient follow up, a family practitioner, to return to the emergency department if symptoms worsen or persist or if there are any questions or concerns that arise at home. 10/10 15:39 Order name: CT Head C Spine; Complete Time: 17:09 kb Administered Medications: No medications were administered Disposition Summary: 10/10/21 17:09 Discharge Ordered Location: Home kb Condition: Stable kb Diagnosis - Unspecified injury of head, initial encounter kb - Cervicalgia kb Followup: kb - With: Emergency Department - When: As needed - Reason: Worsening of condition Followup: kb - With: Private Physician - When: 2 - 3 days - Reason: Recheck today's complaints, Continuance of care, Re-evaluation by your physician Discharge Instructions: - Discharge Summary Sheet kb - Head Injury, Adult, [id number] kb Forms: - Medication Reconciliation Form kb - Thank You Letter kb - Antibiotic Education kb - Prescription Opioid Use kb Addendum: 10/15/2021 18:31 Co-signature as Attending Physician, Aidan Carranza MD I agree with the assessment and c amaya plan of care. Signatures: Dispatcher [employer] Eve Crenshaw, MEDICAL SCIENTIFIC LIAISON-C MEDICAL SCIENTIFIC LIAISON-Aidan Morris MD MD cha Bleininger, Alexis ab2
[2021-10-10 19:04] VITALS: O2SAT 100
[2021-10-10 19:06] VITALS: BP 127/82; TEMP 97.6
== END 2021-10-10 18:33 | disposition home or self-care (01) ==
LOC: ER 14:32
DX: S09.90XA Unspecified injury of head, initial encounter (principal); W22.8XXA Striking against or struck by other objects, initial encounter; Y93.89 Activity, other specified; Y92.69 Other specified industrial and construction area as the place of occurrence of the external cause; Y99.0 Civilian activity done for income or pay; M54.2 Cervicalgia; Z88.0 Allergy status to penicillin; I10 Essential (primary) hypertension; K21.9 Gastro-esophageal reflux disease without esophagitis; J45.909 Unspecified asthma, uncomplicated; F41.9 Anxiety disorder, unspecified; G43.909 Migraine, unspecified, not intractable, without status migrainosus
CPT/HCPCS: 70450; 72125; 99283

== ENCOUNTER 2021-10-20 14:23 | Emergency (ER) | payer SELFPAY ==
[2021-10-20 16:02] LABS: SARS-COV-2 RT PCR NEGATIVE (NEGATIVE)
--- NOTE | 2021-10-20 16:26 | EDPHYS ---
Physician Documentation [facility] Name: Holden Morris Age: 36 yrs Sex: Male : 1985 Arrival Date: 10/20/2021 Time: 14:26 Bed DIS5 Private MD: ED Physician Paige Jones HPI: 10/20 16:21 This 36 yrs old Black Male presents to ER via Ambulatory with complaints of r/o covid. pm1 16:21 The patient or guardian reports cough, with no sputum. Onset: The symptoms/episode pm1 began/occurred yesterday. Modifying factors: The symptoms are alleviated by nothing. the symptoms are aggravated by nothing. Associated signs and symptoms: Pertinent negatives: chest pain, fever, sore throat, vomiting. Severity of symptoms: in the emergency department the symptoms are unchanged. The patient has not experienced similar symptoms in the past. The patient has not recently seen a physician. Patient with contact to his coworker whose sons tested positive for COVID recently. Historical: - Allergies: 15:43 PENICILLINS; young; iw - PMHx: 15:43 Anxiety; Asthma; GERD; Hypertension; Migraines; iw - PSHx: 15:43 Cornea transplant L eye; iw - Immunization history:: Client reports receiving the 2nd dose of the Covid vaccine. - Social history:: Smoking status: Patient denies any tobacco usage or history of. ROS: 16:21 Constitutional: Negative for fever, chills, and weight loss, Cardiovascular: Negative pm1 for chest pain, palpitations, and edema. 16:21 ENT: Negative for injury, pain, and discharge, Abdomen/GI: Negative for abdominal pain, nausea, vomiting, diarrhea, and constipation, Back: Negative for injury and pain, MS/Extremity: Negative for injury and deformity, Skin: Negative for injury, rash, and discoloration, Neuro: Negative for headache, weakness, numbness, tingling, and seizure. 16:21 Respiratory: Positive for cough, Negative for shortness of breath. 16:21 All other systems are negative. Exam: 16:21 Constitutional: This is a well developed, well nourished patient who is awake, alert, pm1 and in no acute distress. Head/Face: Normocephalic, atraumatic. Cardiovascular: Regular rate and rhythm with a normal S1 and S2. No gallops, murmurs, or rubs. Normal PMI, no JVD. No pulse deficits. Respiratory: Lungs have equal breath sounds bilaterally, clear to auscultation and percussion. No rales, rhonchi or wheezes noted. No increased work of breathing, no retractions or nasal flaring. Abdomen/GI: Soft, non-tender, with normal bowel sounds. No distension or tympany. No guarding or rebound. No evidence of tenderness throughout. Skin: Warm, dry with normal turgor. Normal color with no rashes, no lesions, and no evidence of cellulitis. MS/ Extremity: Pulses equal, no cyanosis. Neurovascular intact. Full, normal range of motion. 16:21 Neuro: Exam negative for acute changes, Orientation: is normal, Mentation: is normal, Motor: is normal, moves all fours. Vital Signs: 16:22 BP 123 / 85; Pulse 75; Resp 16; Pulse Ox 98% on R/A; iw MDM: 15:28 Patient medically screened. pm1 16:23 Data reviewed: vital signs. Data interpreted: Pulse oximetry: on room air is 98 %. pm1 Interpretation: normal. Counseling: I had a detailed discussion with the patient and/or guardian regarding: the historical points, exam findings, and any diagnostic results supporting the discharge/admit diagnosis, lab results. 10/20 14:58 Order name: COVID-19/FLU A+B (Document "Date of Onset" if Symptomatic); Complete Time: pm1 16:21 Administered Medications: No medications were administered Disposition Summary: 10/20/21 16:25 Discharge Ordered Location: Home pm1 Problem: new pm1 Symptoms: have improved pm1 Condition: Stable pm1 Diagnosis - Acute upper respiratory infection, unspecified pm1 Followup: pm1 - With: Emergency Department - When: As needed - Reason: Worsening of condition Followup: pm1 - With: Private Physician - When: 2 - 3 days - Reason: Recheck today's complaints, Continuance of care, Re-evaluation by your physician Discharge Instructions: - Discharge Summary Sheet pm1 - Upper Respiratory Infection, Adult pm1 Forms: - Medication Reconciliation Form pm1 - Thank You Letter pm1 - Work release form pm1 - Antibiotic Education pm1 - Prescription Opioid Use pm1 Prescriptions: - Bromfed DM 2-30-10 mg/5 mL Oral syrup - take 10 milliliter by ORAL route every 4 hours As needed; 210 milliliter; pm1 Refills: 0, Product Selection Permitted Addendum: 10/22/2021 18:37 Co-signature as Attending Physician, Paige horta a2 Signatures: Dispatcher [employer] Keshia Seaman RN RN iw Janie Abreu RN RN ss Anthony Guthrie, MEDICAL DEVICE ENGINEER MEDICAL DEVICE ENGINEER pm1 Paige Jones MD MD ma2
--- NOTE | 2021-10-20 16:26 | ER ---
Nurse's Notes [facility] Name: Holden Morris Age: 36 yrs Sex: Male : 1985 Arrival Date: 10/20/2021 Time: 14:26 Bed DIS5 Private MD: Diagnosis: Acute upper respiratory infection, unspecified Presentation: 10/20 15:43 Chief complaint: Patient states: R/O covid. Initial Sepsis Screen: Does the patient iw meet any 2 criteria? No. Patient's initial sepsis screen is negative. Does the patient have a suspected source of infection? No. Patient's initial sepsis screen is negative. Risk Assessment: Do you want to hurt yourself or someone else? Patient reports no desire to harm self or others. Onset of symptoms was October 20, 2021. 15:43 Method Of Arrival: Ambulatory iw 15:43 Acuity: STONE 4 iw Historical: - Allergies: 15:43 PENICILLINS; young; iw - PMHx: 15:43 Anxiety; Asthma; GERD; Hypertension; Migraines; iw - PSHx: 15:43 Cornea transplant L eye; iw - Immunization history:: Client reports receiving the 2nd dose of the Covid vaccine. - Social history:: Smoking status: Patient denies any tobacco usage or history of. Screenin:22 Abuse screen: Denies threats or abuse. Denies injuries from another. Nutritional iw screening: No deficits noted. Tuberculosis screening: No symptoms or risk factors identified. 16:31 Fall Risk None identified. ss Assessment: 16:22 Reassessment: Patient appears in no apparent distress at this time. Patient and/or iw family updated on plan of care and expected duration. Pain level reassessed. Patient is alert, oriented x 3, equal unlabored respirations, skin warm/dry/pink. 16:31 General: Appears in no apparent distress. comfortable, Behavior is calm, cooperative. ss Neuro: Level of Consciousness is awake, alert, obeys commands, Oriented to person, place, time, situation. Cardiovascular: Capillary refill < 3 seconds is brisk in bilateral fingers. Respiratory: Airway is patent Trachea midline Respiratory effort is even, unlabored, Respiratory pattern is regular, symmetrical. EENT: Nares are clear. Derm: Skin is intact, is healthy with good turgor, Skin is dry, Skin is pink, warm \T\ dry. normal. Musculoskeletal: Circulation, motion, and sensation intact. Range of motion: intact in all extremities, Swelling. Vital Signs: 16:22 BP 123 / 85; Pulse 75; Resp 16; Pulse Ox 98% on R/A; iw ED Course: 14:26 Patient arrived in ED. as 14:45 Anthony Guthrie NP is PHCP. pm1 14:45 Paige Jones MD is Attending Physician. pm1 15:43 Triage completed. iw 16:22 Keshia Vernon RN is Primary Nurse. iw 16:31 Patient has correct armband on for positive identification. Bed in low position. Call ss light in reach. 16:31 No provider procedures requiring assistance completed. Patient did not have IV access ss during this emergency room visit. Administered Medications: No medications were administered Outcome: 16:25 Discharge ordered by . pm1 16:35 Patient left the ED. iw Signatures: Sadia Oliver as Keshia Vernon RN RN Janie Abreu RN RN Anthony Guthrie NP [employer] PRESS OPERATOR pm1
[2021-10-20 20:32] VITALS: BP 123/85; O2SAT 98
== END 2021-10-20 16:35 | disposition home or self-care (01) ==
LOC: ER 14:23
DX: J06.9 Acute upper respiratory infection, unspecified (principal); Z20.822 Contact with and (suspected) exposure to COVID-19; I10 Essential (primary) hypertension; Z88.0 Allergy status to penicillin
CPT/HCPCS: 0240U; 99281

== ENCOUNTER 2021-11-04 11:10 | Inpatient (IN) | payer SELFPAY ==
[2021-11-04] MEDS ORDERED: NA CHLORIDE 0.9% 1,000 ML ONE (11:30)
--- NOTE | 2021-11-04 11:47 | RAD REPORT ---
EXAM DESCRIPTION: CT - Head Brain Wo Cont - 11/04/2021 11:34 am CLINICAL HISTORY: Syncope, recurrent COMPARISON: Head Brain Wo Cont dated 08/03/2016 TECHNIQUE: Axial 5 mm thick images of the head were obtained without IV contrast. All CT scans are performed using dose optimization technique as appropriate and may include automated exposure control or mA/KV adjustment according to patient size. FINDINGS: No intracranial hemorrhage, mass, edema or shift of mid-line structures. No acute infarcti on changes seen. No abnormal extra-axial fluid collections. Ventricles are normal. Intracranial findi ngs are similar to the 2017 comparison study. Mastoid air cells and visualized portions of the paranasal sinuses are clear. No acute bony findings. IMPRESSION: Negative non-contrast CT head examination for acute or significant finding.
[2021-11-04 11:56] LABS: Absolute Lymphocytes (CBC) 2.7 K/uL (0.7-4.9); Hematocrit 40.6 % (39.6-49.0); Lymphocytes % 35.7 % (15.3-44.8); MPV 7.4 fL (7.6-11.3); RBC Red Blood Cell Count 5.53 M/uL (4.33-5.43)
[2021-11-04 12:20] LABS: ALT/SGPT 31 U/L (12-78); AST/SGOT 16 U/L (15-37); Albumin 4.1 g/dL (3.4-5.0); Alkaline Phosphatase 70 U/L (45-117); BUN Blood Urea Nitrogen 19 mg/dL (7-18); Bicarbonate 26 mmol/L (21-32); Bilirubin Direct 0.1 mg/dL (0-0.2); Bilirubin Total 0.5 mg/dL (0.2-1.0); Glucose Level 114 mg/dL (74-106); Potassium 3.9 mmol/L (3.5-5.1); Protein, Total 8.3 g/dL (6.4-8.2); Sodium Level 139 mmol/L (136-145); Troponin High Sensitivity 3.5 pg/mL (<58.9)
[2021-11-04 12:28] LABS: Protime INR 1.16
[2021-11-04 12:45] LABS: SARS-COV-2 RT PCR NEGATIVE (NEGATIVE)
--- NOTE | 2021-11-04 13:33 | EDPHYS ---
Physician Documentation [facility] Name: Holden Morris Age: 36 yrs Sex: Male : 1985 Arrival Date: 11/04/2021 Time: 11:11 Bed 14 Private MD: ED Physician Jose Ramon Tinajero HPI: 11/04 13:29 This 36 yrs old Black Male presents to ER via Ambulatory with complaints of Syncope. rn 13:29 The patient has experienced syncope. Onset: The symptoms/episode began/occurred rn yesterday. Duration: The patient has had multiple episodes, that last an unknown period of time. Associated injury: The patient did not suffer any apparent associated injury. Associated signs and symptoms: Pertinent positives: headache, lightheadedness, Pertinent negatives: abdominal pain, chest pain, seizure, shortness of breath, weakness. Current symptoms: Currently, the patient is not experiencing any symptoms. The patient has not experienced similar symptoms in the past. The patient has not recently seen a physician. pt reports 3 syncopal episodes since last night. Reports happens when stands up and tries to do something. Reports feels lightheaded. Reports headache and history of migraines. Denies chest pain or shortness of breath. Denies abdominal pain/vomiting/diarrhea. No fever. No family history of early cardiac problems. No family history of brain problems at his age. Currently feels okay.. Historical: - Allergies: 11:22 PENICILLINS; young; jl7 - Home Meds: 11:22 carvedilol 3.125 mg Oral tab 1 tab 2 times per day [Active]; jl7 - PMHx: 11:22 Anxiety; Asthma; GERD; Hypertension; Migraines; jl7 - PSHx: 11:22 Cornea transplant L eye; jl7 - Immunization history:: Client reports receiving the 2nd dose of the Covid vaccine. - Social history:: Smoking status: Patient denies any tobacco usage or history of. - Family history:: not pertinent. - Hospitalizations: : No recent hospitalization is reported. ROS: 13:30 Constitutional: Negative for fever, chills, and weight loss, Eyes: Negative for injury, rn pain, redness, and discharge, Neck: Negative for injury, pain, and swelling, Cardiovascular: Negative for chest pain, palpitations, and edema, Respiratory: Negative for shortness of breath, cough, wheezing, and pleuritic chest pain, Abdomen/GI: Negative for abdominal pain, nausea, vomiting, diarrhea, and constipation, Back: Negative for injury and pain, MS/Extremity: Negative for injury and deformity, Skin: Negative for injury, rash, and discoloration, Neuro: Negative for weakness, numbness, tingling, and seizure. Exam: 13:30 Constitutional: This is a well developed, well nourished patient who is awake, alert, rn and in no acute distress. Head/Face: Normocephalic, atraumatic. Eyes: Pupils equal round and reactive to light, extra-ocular motions intact. Lids and lashes normal. Conjunctiva and sclera are non-icteric and not injected. Cornea within normal limits. Periorbital areas with no swelling, redness, or edema. ENT: Dry mucous membranes Neck: Trachea midline, no thyromegaly or masses palpated, and no cervical lymphadenopathy. Supple, full range of motion without nuchal rigidity, or vertebral point tenderness. No Meningismus. Cardiovascular: Regular rate and rhythm with a normal S1 and S2. No gallops, murmurs, or rubs. Normal PMI, no JVD. No pulse deficits. Respiratory: Lungs have equal breath sounds bilaterally, clear to auscultation and percussion. No rales, rhonchi or wheezes noted. No increased work of breathing, no retractions or nasal flaring. Abdomen/GI: Soft, non-tender, with normal bowel sounds. No distension or tympany. No guarding or rebound. No evidence of tenderness throughout. Skin: Warm, dry with normal turgor. Normal color with no rashes, no lesions, and no evidence of cellulitis. MS/ Extremity: Pulses equal, no cyanosis. Neurovascular intact. Full, normal range of motion. Equal circumference. Neuro: Awake and alert, GCS 15, oriented to person, place, time, and situation. Cranial nerves II-XII grossly intact. Motor strength 5/5 in all extremities. Sensory grossly intact. Cerebellar exam normal. Normal gait. 13:30 ECG was reviewed by the Attending Physician. rn Vital Signs: 11:21 BP 164 / 86; Pulse 95; Resp 17; Temp 98.8; Pulse Ox 100% on R/A; Weight 97.52 kg; jl7 Height 5 ft. 9 in. (175.26 cm); Pain 9/10; 11:50 BP 119 / 71 Supine; Pulse 78 LA; ap3 11:55 BP 117 / 91 Sitting; Pulse 76; ap3 12:00 BP 116 / 76; Pulse 81 LA; ap3 13:15 BP 125 / 77; Pulse 69; Pulse Ox 99% on R/A; ap3 14:01 BP 136 / 74; Pulse 89; Pulse Ox 100% on R/A; ap3 15:07 BP 117 / 72; Pulse 82; ap3 17:02 BP 100 / 56; Pulse 68; Pulse Ox 100% on R/A; ap3 11:21 Body Mass Index 31.75 (97.52 kg, 175.26 cm) jl7 MDM: 11:15 Patient medically screened. rn 13:30 Differential Diagnosis: cardiac arrhythmia, emotional response, idiopathic syncope, rn seizure, vasovagal episode. Data reviewed: vital signs, nurses notes, lab test result(s), EKG, radiologic studies, CT scan, and as a result, I will discharge patient. Counseling: I had a detailed discussion with the patient and/or guardian regarding: the historical points, exam findings, and any diagnostic results supporting the discharge/admit diagnosis, lab results, radiology results, the need for outpatient follow up, to return to the emergency department if symptoms worsen or persist or if there are any questions or concerns that arise at home. Response to treatment: the patient's symptoms have resolved after treatment, the patient's condition has returned to base line, the patient is now symptom free, and as a result, I will discharge patient. Special discussion: I discussed with the patient/guardian in detail that at this point there is no indication for admission to the hospital. It is understood, however, that if the symptoms persist or worsen the patient needs to return immediately for re-evaluation. Based on the history and exam findings, there is no indication for further emergent testing or inpatient evaluation. I discussed with the patient/guardian the need to see the primary care provider for further evaluation of the symptoms. 13:38 ED course: Pt uneasy about going home without clear diagnosis, will admit for recurrent rn syncope. 11/04 11:21 Order name: Basic Metabolic Panel; Complete Time: 13:28 rn 11/04 11:21 Order name: CBC with Diff; Complete Time: 12:14 rn 11/04 11:21 Order name: Hepatic Function; Complete Time: 13: rn 11/04 11:21 Order name: Magnesium; Complete Time: 13:28 rn 11/04 11:21 Order name: Protime (+inr); Complete Time: 13:28 rn 11/04 11:21 Order name: COVID-19/FLU A+B (Document "Date of Onset" if Symptomatic); Complete Time: rn 13:11/04 11:21 Order name: CT Head Brain wo Cont; Complete Time: 12:14 rn 11/04 11:21 Order name: EKG; Complete Time: : rn 11/04 11:21 Order name: Cardiac monitoring; Complete Time: 11: rn 11/04 11:21 Order name: EKG - Nurse/Tech; Complete Time: : rn 11/04 11:21 Order name: IV Saline Lock; Complete Time: 11:49 rn 11/04 11:21 Order name: Troponin High Sensitivity; Complete Time: 13: rn 11/04 11:21 Order name: Labs collected and sent; Complete Time: 11:50 rn 11/04 11:21 Order name: O2 Per Protocol; Complete Time: 11: rn 11/04 11:21 Order name: O2 Sat Monitoring; Complete Time: 11: rn 11/04 11:21 Order name: Orthostatics; Complete Time: 12:00 rn EC:30 Rate is 74 beats/min. Rhythm is regular. QRS [place] is Normal. VT interval is normal. QRS rn interval is normal. QT interval is normal. No Q waves. T waves are Normal. No ST changes noted. Clinical impression: Normal ECG. Interpreted by me. Reviewed by me. Administered Medications: 11:50 Drug: NS 0.9% 1000 ml Route: IV; Rate: 1000 ml; Site: right antecubital; ap3 14:06 Follow up: IV Status: Completed infusion; IV Intake: 1000ml ap3 14:07 Drug: Motrin (ibuprofen) 800 mg Route: PO; ap3 15:06 Follow up: Response: No adverse reaction; Pain is decreased ap3 Disposition Summary: 11/04/21 13:38 Hospitalization Ordered Hospitalization Status: Observation rn Provider: Mayito Jones rn Location: Telemetry/MedSurg (observation)(11/04/21 13:38) rn Condition: Stable(11/04/21 13:38) rn Problem: new(11/04/21 13:38) rn Symptoms: have improved(11/04/21 13:38) rn Bed/Room Type: Standard rn Room Assignment: 208(11/04/21 16:20) bd Diagnosis - syncope rn - Migraine, unspecified, not intractable, without status migrainosus rn Forms: - Medication Reconciliation Form rn - SBAR form rn Signatures: Dispatcher [employer] EDKatelynn Hood Roman, MD MD rn Leal, Jahala, RN RN jl7 Mia Armendariz, RN RN ap3 Corrections: (The following items were deleted from the chart) 13:37 13:33 Home rn rn 13:37 13:33 new rn rn 13:37 13:33 have improved rn rn 13:37 13:33 Stable rn rn 13:37 13:33 Syncope rn rn 16:20 13:38 rn bd
--- NOTE | 2021-11-04 13:33 | ER ---
Nurse's Notes [facility] Name: Holden Morris Age: 36 yrs Sex: Male : 1985 Arrival Date: 11/04/2021 Time: 11:11 Bed 14 Private MD: Diagnosis: syncope;Migraine, unspecified, not intractable, without status migrainosus Presentation: 11/04 11:21 Chief complaint: Patient states: Reports three syncopal episodes last night, SALIN[place] and jl7 left arm tingling started yesterday. Coronavirus screen: At this time, the client does not indicate any symptoms associated with coronavirus-19. Ebola Screen: No symptoms or risks identified at this time. Initial Sepsis Screen: Does the patient meet any 2 criteria? No. Patient's initial sepsis screen is negative. Does the patient have a suspected source of infection? No. Patient's initial sepsis screen is negative. Risk Assessment: Do you want to hurt yourself or someone else? Patient reports no desire to harm self or others. Onset of symptoms was November 03, 2021. 11:21 Method Of Arrival: Ambulatory [facility] 11:21 Acuity: STONE 3 jl7 Triage Assessment: 11:22 General: Appears in no apparent distress. uncomfortable, Behavior is calm, cooperative, jl7 appropriate for age. Pain: Complains of pain in [place] Pain currently is 9 out of 10 on a pain scale. Neuro: Level of Consciousness is awake, alert, obeys commands, Oriented to person, place, time, situation, Reports a syncopal episode. Historical: - Allergies: 11:22 PENICILLINS; young; jl7 - Home Meds: 11:22 carvedilol 3.125 mg Oral tab 1 tab 2 times per day [Active]; jl7 - PMHx: 11:22 Anxiety; Asthma; GERD; Hypertension; Migraines; jl7 - PSHx: 11:22 Cornea transplant L eye; jl7 - Immunization history:: Client reports receiving the 2nd dose of the Covid vaccine. - Social history:: Smoking status: Patient denies any tobacco usage or history of. - Family history:: not pertinent. - Hospitalizations: : No recent hospitalization is reported. Screenin:31 Abuse screen: Denies threats or abuse. Nutritional screening: No deficits noted. ap3 Tuberculosis screening: No symptoms or risk factors identified. Fall Risk Fall in past 12 months (25 points). Secondary diagnosis (15 points) multiple syncopal episodes . IV access (20 points). Ambulatory Aid- None/Bed Rest/Nurse Assist (0 pts). Gait- Normal/Bed Rest/Wheelchair (0 pts) Mental Status- Oriented to own ability (0 pts). Total Anderson Fall Scale indicates High Risk Score (45 or more points). Fall prevention measures have been instituted. Side Rails Up X 2 Placed Close to Nursing Station Frequent Obs/Assessments Occuring As available patient and family educated on Fall Prevention Program and Strategies. Assessment: 11:29 General: Appears in no apparent distress. Behavior is calm, cooperative. Pain: ap3 Complains of pain in face Pain currently is 9 out of 10 on a pain scale. Neuro: Level of Consciousness is awake, alert, obeys commands, Oriented to person, place, time, situation, Gait is steady, Speech is normal, Facial symmetry appears normal. Neuro: Reports a syncopal episode. Cardiovascular: Patient's skin is warm and dry. Respiratory: Airway is patent Respiratory effort is even, unlabored, Respiratory pattern is regular, symmetrical. Musculoskeletal: Reports stiffness on his left side of neck, and tingling in left arm. 12:02 Reassessment: Patient and/or family updated on plan of care and expected duration. Pain ap3 level reassessed. Patient is alert, oriented x 3, equal unlabored respirations, skin warm/dry/pink. 17:01 Cardiovascular: Rhythm is regular. ap3 Vital Signs: 11:21 BP 164 / 86; Pulse 95; Resp 17; Temp 98.8; Pulse Ox 100% on R/A; Weight 97.52 kg; jl7 Height 5 ft. 9 in. (175.26 cm); Pain 9/10; 11:50 BP 119 / 71 Supine; Pulse 78 LA; ap3 11:55 BP 117 / 91 Sitting; Pulse 76; ap3 12:00 BP 116 / 76; Pulse 81 LA; ap3 13:15 BP 125 / 77; Pulse 69; Pulse Ox 99% on R/A; ap3 14:01 BP 136 / 74; Pulse 89; Pulse Ox 100% on R/A; ap3 15:07 BP 117 / 72; Pulse 82; ap3 17:02 BP 100 / 56; Pulse 68; Pulse Ox 100% on R/A; ap3 11:21 Body Mass Index 31.75 (97.52 kg, 175.26 cm) jl7 ED Course: 11:11 Patient arrived in ED. am2 11:15 Jose Ramon Tinajero MD is Attending Physician. rn 11:22 Triage completed. jl7 11:22 Arm band placed on right wrist. jl7 11:23 Mia Armendariz, RN is Primary Nurse. ap3 11:28 EKG done, by ED staff, reviewed by Jose Ramon Tinajero MD. em1 11:[address] via stretcher. ap3 11:32 Patient has correct armband on for positive identification. Bed in low position. Call ap3 light in reach. Side rails up X2. Client placed on continuous cardiac and pulse oximetry monitoring. NIBP monitoring applied. Door closed. Noise minimized. 11:36 CT Head Brain wo Cont In Process Unspecified. EDMS 11:49 Inserted saline lock: 20 gauge in right antecubital area, using aseptic technique. ap3 Blood collected. 13:37 Mayito Jones is Hospitalizing Provider. rn 17:01 No provider procedures requiring assistance completed. Patient admitted, IV remains in ap3 place. Administered Medications: 11:50 Drug: NS 0.9% 1000 ml Route: IV; Rate: 1000 ml; Site: right antecubital; ap3 14:06 Follow up: IV Status: Completed infusion; IV Intake: 1000ml ap3 14:07 Drug: Motrin (ibuprofen) 800 mg Route: PO; ap3 15:06 Follow up: Response: No adverse reaction; Pain is decreased ap3 Intake: 14:06 IV: 1000ml; Total: 1000ml. ap3 Outcome: 13:33 Discharge ordered by . rn 13:38 Decision to Hospitalize by Provider. rn 17:01 Admitted to Med/surg accompanied by tech, via wheelchair, room 208, with chart. ap3 17:01 Condition: good 17:08 Patient left the ED. ap3 Signatures: Dispatcher [employer] EDMS Jose Ramon Tinajero MD MD rn Martinez, Eric em1 Jelani Luque RN RN jl7 Mia Cardozo am2 Mia Armendariz, NICOL RN ap3
[2021-11-04] MEDS ORDERED: IBUPROFEN 400 MG TAB ONE (14:09)
--- NOTE | 2021-11-04 15:54 | P.HP ---
Certification for Inpatient Patient admitted to: Observation With expected LOS: <2 Midnights Practitioner: I am a practitioner with admitting privileges, knowledge of patient current condition, hospital course, and medical plan of care. Services: Services provided to patient in accordance with Admission requirements found in Title 42 Section 412.3 of the Code of Federal Regulations Patient History Date of Service: 11/04/21 History of Present Illness: 36-year-old gentleman with a history of hypertension, history of multiple ED visits presented emergency department for evaluation for multiple syncopal episodes that occurred today. Patient reports 3 syncopal episodes, each episode occurred while patient was in standing position. He stated 2 episodes occurred while he was walking. The other episode of occurred when he got up from his couch. He said he crumpled to the floor during each episode, did not hit his head. According to him, those episodes were witnessed and he was told he did not have any seizures, no urine or stool incontinence. Patient denies any chest pain or palpitation or shortness of breath. Work-up in the ED has been unremarkable. Troponin is negative, EKG demonstrates sinus rhythm. Orthostatic vitals done in the ED is negative for orthostatic hypotension. Patient is placed under observation for further evaluation. Allergies No Known Drug Allergies Allergy (Verified 01/12/17 15:49) Unknown Penicillins Allergy (Unverified 01/14/18 23:06) Unknown No Known Allergies Allergy (Uncoded 08/31/17 13:58) Unknown Home Medications: NK [No Home Meds] 01/12/17 - Past Medical/Surgical History Diabetic: No -: Hypertension - Family History Father -: Heart disease (Father of heart attack at the age of 55) - Social History Smoking Status: Never smoker Alcohol use: Yes CD- Drugs: No Place of Residence: Home Review of Systems Other: Patient denied any fever or cough or abdominal pain. No reports of diarrhea or vomiting. Except as documented, all other systems reviewed and negative. Physical Examination - Physical Exam General: Alert, In no apparent distress, Oriented x3 HEENT: Normocephalic, PERRLA, Mucous membr. moist/pink, EOMI, Sclerae nonicteric Neck: Supple, 2+ carotid pulse no bruit, JVD not distended, No Thyromegaly Respiratory: Clear to auscultation bilaterally, Normal air movement Cardiovascular: No edema, Regular rate/rhythm, Normal S1 S2, No murmurs Capillary refill: <2 Seconds Gastrointestinal: Normal bowel sounds, Soft and benign, Non-distended, No tenderness Musculoskeletal: No swelling, No tenderness Integumentary: No rashes, No erythema, No cyanosis Neurological: Normal speech, Normal strength at 5/5 x4 extr, Cranial nerves 3-12 intact Lymphatics: No axilla or inguinal lymphadenopathy - Studies Laboratory Data (last 24 hrs) 11/04/21 11:45: PT 12.8 H, INR 1.16 11/04/21 11:45: WBC 7.6, Hgb 13.1 L, Hct 40.6, Plt Count 287 11/04/21 11:45: Sodium 139, Potassium 3.9, BUN 19 H, Creatinine 0.96, Glucose 114 H, Magnesium 2.0, Total Bilirubin 0.5, AST 16, ALT 31, Alkaline Phosphatase 70 Assessment and Plan - Problems (Diagnosis) (1) Syncope and collapse Current Visit: Yes Status: Acute (2) Hypertension Current Visit: Yes Status: Acute - Plan Placed under observation on the medical floor. Trend troponin Cardiac monitoring to assess for arrhythmia Orthostatic negative Echocardiogram to evaluate heart valves and cardiac chambers. Patient is currently normotensive. Hold his home dose Coreg for now. Hydrate with IV normal saline. - Advance Directives Does patient have a Living Will: No Does patient have a Durable POA for Healthcare: No
[2021-11-04] MEDS ORDERED: ONDANSETRON 4 MG/2 ML VIAL IV PRN (17:25)
[2021-11-04] MEDS: NA CHLORIDE 0.9% 1,000 ML IV SCH (18:05)
[2021-11-04 18:53] VITALS: BMI 31.7
[2021-11-04] MEDS: ACETAMINOPHEN 500 MG TAB PO PRN (19:24)
[2021-11-04] MEDS ORDERED: KETOROLAC 30 MG/ML INJ IV ONE (21:39)
[2021-11-05] MEDS ORDERED: MORPHINE 4 MG/ML SYR IV ONE (00:35)
[2021-11-05 05:57] LABS: Hematocrit 36.1 % (39.6-49.0); Lymphocytes % 38.5 % (15.3-44.8); MPV 7.5 fL (7.6-11.3); RBC Red Blood Cell Count 4.89 M/uL (4.33-5.43)
[2021-11-05 06:27] LABS: BUN Blood Urea Nitrogen 15 mg/dL (7-18); Bicarbonate 26 mmol/L (21-32); Glucose Level 109 mg/dL (74-106); HDL Cholesterol 35 mg/dL (40-60); LDL Cholesterol, Calculated 126 mg/dL (<130); Magnesium 1.9 mg/dL (1.8-2.4); Phosphorus 4.4 mg/dL (2.5-4.9); Potassium 4.2 mmol/L (3.5-5.1); Sodium Level 139 mmol/L (136-145)
[2021-11-05] MEDS: ACETAMINOPHEN 500 MG TAB PO PRN ×2 (07:44→16:32)
--- NOTE | 2021-11-05 07:53 | EKG ---
Test Date: 2021-11-04 Test Time: 23:05:06 Strike Out Machine Operator: 35 MEASUREMENT RESULTS: Intervals: Rate: 67 TN: 142 QRSD: 82 QT: 372 QTc: 393 [place]: P: 53 TN: 142 QRS: 25 T: 39 INTERPRETIVE STATEMENTS: Normal sinus rhythm Normal ECG Compared to ECG 01/12/2021 11:15:23 No significant changes Electronically Signed On 11-05-21 07:52:41 CDT by Christopher Pacheco
[2021-11-05] MEDS: ENOXAPARIN 40 MG/0.4 ML SQ SCH (11:57)
--- NOTE | 2021-11-05 12:16 | RAD REPORT ---
EXAM DESCRIPTION: RAD - Chest Single View - 11/05/2021 12:22 am CLINICAL HISTORY: 36 years Male, chest pain COMPARISON: None. FINDINGS: No consolidation. No pneumothorax. No significant pleural effusion. Cardiac silhouette appears at the upper limits of normal. Osseous structures are unremarkable. IMPRESSION: No acute findings. Electronically signed by: Addi Cabrera MD 11/05/2021 12:30 AM CDT Due to temporary technical issues with the PACS/Fluency reporting system, reports are being signed by the in house radiologists without review as a courtesy to insure prompt reporting. The interpreting radiologist is fully responsible for the content of the report.
[2021-11-05] MEDS: NA CHLORIDE 0.9% 1,000 ML IV SCH ×3 (13:25→20:23)
--- NOTE | 2021-11-05 18:38 | P.PN ---
Subjective Date of Service: 11/05/21 Patient complaining of dizziness with standing. Nurse reports patient gait was wobbly when he tried to use the bathroom. His blood pressure has been borderline low today. Physical Examination - Vital Signs Temperature: 98.0 F Blood Pressure: 121/68 Pulse: 56 Respirations: 16 Pulse Ox (%): 99 - Physical Exam General: Alert, In no apparent distress, Oriented x3 HEENT: Mucous membr. moist/pink, Sclerae nonicteric Neck: Supple, JVD not distended Respiratory: Clear to auscultation bilaterally, Normal air movement Cardiovascular: No edema, Regular rate/rhythm, Normal S1 S2 Gastrointestinal: Normal bowel sounds, Soft and benign, Non-distended, No tenderness Musculoskeletal: No swelling, No tenderness Integumentary: No rashes, No erythema Neurological: Normal strength at 5/5 x4 extr, Cranial nerves 3-12 intact Assessment And Plan - Current Problems (Diagnosis) (1) Syncope and collapse Current Visit: Yes Status: Acute (2) Hypertension Current Visit: Yes Status: Acute - Plan Troponin trended negative. Patient with soft blood pressure No arrhythmia. Noted patient is on Coreg for hypertension. Patient's syncopal episodes likely secondary to low BP in addition to taking his Coreg. Echocardiogram is pending. Patient is currently normotensive. Hold his home dose Coreg for now. Continue IV normal saline.
[2021-11-05 21:01] VITALS: O2SAT 100
[2021-11-05] MEDS ORDERED: HYDROCODONE/APAP 5/325 MG TAB PO ONE (21:08)
[2021-11-06] MEDS: NA CHLORIDE 0.9% 1,000 ML IV SCH ×2 (02:39→08:02)
[2021-11-06] MEDS: ACETAMINOPHEN 500 MG TAB PO PRN (04:00)
--- NOTE | 2021-11-06 07:07 | ECHO ---
HEIGHT: 5 ft 9 in WEIGHT: 215 lb 0 oz DATE OF STUDY: 11/05/[address]: kenisha osorio 2-DIMENSIONAL: YES M.MODE: YES DOPPLER: YES COLOR FLOW: YES TDS: NO PORTABLE: YES DEFINITY: NO BUBBLE STUDY: NO DIAGNOSIS: SYNCOPE CARDIAC HISTORY: CATHERIZATION: NO SURGERY: NO PROSTHETIC VALVE: NO PACEMAKER: NO MEASUREMENTS (cm) DIASTOLIC (NORMALS) SYSTOLIC (NORMALS) IVSd 1.0 (0.6-1.2) LA Diam 3.3 (1.9-4.0) LVEF 60-65% LVIDd 4.1 (3.5-5.7) LVIDs 2.4 (2.0-3.5) %FS % LVPWd 1.1 (0.6-1.2) Ao Diam 2.7 (2.0-3.7) 2 DIMENSIONAL ASSESSMENT: RIGHT ATRIUM: NORMAL LEFT ATRIUM: NORMAL RIGHT VENTRICLE: NORMAL LEFT VENTRICLE: NORMAL TRICUSPID VALVE: NORMAL MITRAL VALVE: NORMAL PULMONIC VALVE: NORMAL AORTIC VALVE: NORMAL PERICARDIAL EFFUSION: NONE AORTIC ROOT: NORMAL LEFT VENTRICULAR WALL MOTION: NORMAL DOPPLER/COLOR FLOW: MILD TRICUSPID REGURGITATION. COMMENTS: NORMAL LEFT VENTRICULAR EJECTION FRACTION 60-65%. NORMAL WALL MOTION. MILD TRICUSPID REGURGITATION. TECHNOLOGIST: Roselia ELIZONDO
[2021-11-06] MEDS: ENOXAPARIN 40 MG/0.4 ML SQ SCH (08:02)
[2021-11-06 08:46] VITALS: BP 112/73; TEMP 97.4
--- NOTE | 2021-11-06 14:36 | EKG ---
Test Date: 2021-11-04 Test Time: 11:21:49 Firer Boiler: ALP MEASUREMENT RESULTS: Intervals: Rate: 74 MS: 140 QRSD: 82 QT: 360 QTc: 399 [place]: P: 64 MS: 140 QRS: 38 T: 37 INTERPRETIVE STATEMENTS: Normal sinus rhythm Normal ECG Compared to ECG 01/12/2021 11:15:23 No significant changes Electronically Signed On 11-06-21 14:32:38 CDT by Christopher Pacheco
--- NOTE | 2021-11-06 17:30 | P.DS ---
Admission Date: 11/04/21 Discharge Date: 11/06/21 Disposition: ROUTINE DISCHARGE Discharge Condition: FAIR - Problems (1) Syncope and collapse Status: Acute (2) Hypertension Status: Acute Brief History of Present Illness: 36-year-old gentleman with a history of hypertension, history of multiple ED visits presented emergency department for evaluation for multiple syncopal episodes that occurred today. Patient reports 3 syncopal episodes, each episode occurred while patient was in standing position. He stated 2 episodes occurred while he was walking. The other episode of occurred when he got up from his couch. He said he crumpled to the floor during each episode, did not hit his head. According to him, those episodes were witnessed and he was told he did not have any seizures, no urine or stool incontinence. Patient denies any chest pain or palpitation or shortness of breath. Work-up in the ED has been unremarkable. Troponin is negative, EKG demonstrates sinus rhythm. Orthostatic vitals done in the ED is negative for orthostatic hypotension. Patient admitted for further evaluation. Hospital Course: Patient admitted to the medical floor and hydrated with IV fluid. Syncope work- up unremarkable with normal echocardiogram. He reported lightheadedness with standing which makes orthostatic hypotension likely but orthostatic vitals were negative. Patient blood pressure noted to be soft. He has been taking antihypertensives at home which he has been told to stop taking as her passing out may be related from low blood pressure hours of results of taking the antihypertensives. Patient ambulated with no issues today. Blood pressure has been stable. He is deemed stable for discharge. Vital Signs/Physical Exam: Temp Pulse Resp BP Pulse Ox 97.4 F 60 18 112/73 100 11/06/21 08:00 11/06/21 08:00 11/06/21 08:00 11/06/21 08:00 11/06/21 08:00 General: Alert, In no apparent distress, Oriented x3 HEENT: Mucous membr. moist/pink Neck: Supple, JVD not distended Respiratory: Clear to auscultation bilaterally, Normal air movement Cardiovascular: No edema, Regular rate/rhythm, Normal S1 S2 Gastrointestinal: Normal bowel sounds, Soft and benign, Non-distended, No tenderness Musculoskeletal: No swelling, No tenderness Integumentary: No rashes Neurological: Normal strength at 5/5 x4 extr Laboratory Data at Discharge: WBC 7.8 K/uL (4.3-10.9) 11/05/21 05:27 Hgb 11.6 g/dL (13.6-17.9) L 11/05/21 05:27 Hct 36.1 % (39.6-49.0) L 11/05/21 05:27 Plt Count 254 K/uL (152-406) 11/05/21 05:27 PT 12.8 SECONDS (9.5-12.5) H 11/04/21 11:45 INR 1.16 11/04/21 11:45 Sodium 139 mmol/L (136-145) 11/05/21 05:27 Potassium 4.2 mmol/L (3.5-5.1) 11/05/21 05:27 BUN 15 mg/dL (7-18) 11/05/21 05:27 Creatinine 0.91 mg/dL (0.55-1.3) 11/05/21 05:27 Glucose 109 mg/dL (74-106) H 11/05/21 05:27 Phosphorus 4.4 mg/dL (2.5-4.9) 11/05/21 05:27 Magnesium 1.9 mg/dL (1.8-2.4) 11/05/21 05:27 Total Bilirubin 0.5 mg/dL (0.2-1.0) 11/04/21 11:45 AST 16 U/L (15-37) 11/04/21 11:45 ALT 31 U/L (12-78) 11/04/21 11:45 Alkaline Phosphatase 70 U/L (45-117) 11/04/21 11:45 Triglycerides 109 mg/dL (<150) 11/05/21 05:27 Cholesterol 183 mg/dL (<200) 11/05/21 05:27 HDL Cholesterol 35 mg/dL (40-60) L 11/05/21 05:27 Cholesterol/HDL Ratio 5.23 11/05/21 05:27 Home Medications: NK [No Home Meds] 01/12/17 Physician Discharge Instructions: Orthostatic precautions; Sit for about 2 to 4 minutes before you stand up to walk. Diet: AHA Activity: Ad renetta Time spent managing pt's care (in minutes): 36
== END 2021-11-06 09:43 | disposition home or self-care (01) | DRG 312 ==
LOC: ER 11:10 → ERHOLD 15:47 → 2ND 16:51 → OBSVTOIN 22:34
PROVIDERS: ADMIT Internal Medicine; ATTEND Internal Medicine
DX: R55 Syncope and collapse (principal); I10 Essential (primary) hypertension; Z20.822 Contact with and (suspected) exposure to COVID-19; Z88.0 Allergy status to penicillin; Z82.49 Family history of ischemic heart disease and other diseases of the circulatory system; Z94.7 Corneal transplant status
CPT/HCPCS: 0240U; 36415; 70450; 71045; 80048; 80061; 80076; 83735; 84100; 84443; 84484; 85025; 85610; 93005; 93306; 94760; 96360; 96361; 99285; G0378; J1650; J7030

== ENCOUNTER 2021-11-07 13:19 | Emergency (ER) | payer SELFPAY ==
[2021-11-07 14:04] LABS: Absolute Lymphocytes (CBC) 1.6 K/uL (0.7-4.9); Hematocrit 37.5 % (39.6-49.0); Lymphocytes % 25.2 % (15.3-44.8); MPV 7.3 fL (7.6-11.3)
[2021-11-07 14:14] LABS: Protime INR 1.12
--- NOTE | 2021-11-07 14:22 | RAD REPORT ---
EXAM DESCRIPTION: RAD - Chest Single View - 11/07/2021 2:02 pm CLINICAL HISTORY: CHEST PAIN COMPARISON: Chest Single View dated 11/05/2021; Chest Single View dated 01/12/2021; Chest Single View d ated 07/23/2020; Chest Single View dated 05/16/2020 FINDINGS: Lines: None. Lungs: No evidence of edema or pneumonia. Pleural: No significant pleural effusions or pneumothorax. Cardiac: The heart size is within normal limits. Bones: No acute fractures. Other: IMPRESSION: No acute cardiopulmonary disease.
[2021-11-07] MEDS ORDERED: LORazepam 2 MG/ML VIAL ONE (14:24)
[2021-11-07 14:30] LABS: ALT/SGPT 32 U/L (12-78); AST/SGOT 17 U/L (15-37); Albumin 3.5 g/dL (3.4-5.0); Alkaline Phosphatase 58 U/L (45-117); BUN Blood Urea Nitrogen 14 mg/dL (7-18); Bicarbonate 28 mmol/L (21-32); Bilirubin Direct < 0.1 mg/dL (0-0.2); Bilirubin Total 0.3 mg/dL (0.2-1.0); Glucose Level 124 mg/dL (74-106); Magnesium 1.7 mg/dL (1.8-2.4); NT PRO-BNP 108 pg/mL (<125); Potassium 3.6 mmol/L (3.5-5.1); Protein, Total 7.3 g/dL (6.4-8.2); Sodium Level 139 mmol/L (136-145); Troponin High Sensitivity 6.8 pg/mL (<58.9)
[2021-11-07 14:41] LABS: Urine Blood Trace-intact (Negative); Urine Glucose Negative (Negative); Urine Protein Trace (Negative); Urine Specific Gravity 1.025 (1.005-1.030)
[2021-11-07 15:07] LABS: Urine Bacteria <20 /HPF (NONE SEEN); Urine Mucus 1+ /HPF (NONE SEEN); Urine RBC <5 /HPF (NONE SEEN)
[2021-11-07 15:11] LABS: Barbiturates NEGATIVE (NEGATIVE); Benzodiazepines NEGATIVE (NEGATIVE); Cocaine NEGATIVE (NEGATIVE); METHAMPHETAM NEGATIVE (NEGATIVE); Methadone NEGATIVE (NEGATIVE); Opiates NEGATIVE (NEGATIVE); Phencyclidine NEGATIVE (NEGATIVE); THC Cannibis NEGATIVE (NEGATIVE)
[2021-11-07] MEDS ORDERED: MAGNESIUM SULFATE 1 gm IVPB 1 GM/100 ML BAG IV ONE (15:19)
[2021-11-07] MEDS ORDERED: NA CHLORIDE 0.9% 1,000 ML ONE (15:19)
[2021-11-07] MEDS ORDERED: ACETAMINOPHEN 500 MG TAB ONE (17:03)
[2021-11-07] MEDS ORDERED: FENTANYL CITR 100 MCG/2 ML ONE (17:46)
--- NOTE | 2021-11-07 19:09 | ER ---
Nurse's Notes [facility] Name: Holden Morris Age: 36 yrs Sex: Male : 1985 Arrival Date: 11/07/2021 Time: 13:21 Bed 20 Private MD: Diagnosis: Chest pain, unspecified;Pain in left leg Presentation: 11/07 13:27 Chief complaint: Patient states: SOB, CP, and L sided body pain continues since his ll1 last visit here Tuesday. Coronavirus screen: Vaccine status: Patient reports receiving the 2nd dose of the covid vaccine. Client denies travel out of the [place] in the last 14 days. At this time, the client does not indicate any symptoms associated with coronavirus-19. Ebola Screen: Patient denies travel to an Ebola-affected area in the 21 days before illness onset. Initial Sepsis Screen: Does the patient meet any 2 criteria? No. Patient's initial sepsis screen is negative. Does the patient have a suspected source of infection? No. Patient's initial sepsis screen is negative. Risk Assessment: Do you want to hurt yourself or someone else? Patient reports no desire to harm self or others. Onset of symptoms was November 04, 2021. 13:27 Method Of Arrival: EMS: [facility] ll1 13:27 Acuity: STONE 3 ll1 13:27 Chief complaint: EMS states: Aspirin 324 mg PO given en route, 20 G L AC, VSS except HR ll1 125-110. Triage Assessment: 13:34 General: Appears uncomfortable, Behavior is cooperative, appropriate for age. Pain: ll1 Complains of pain in chest/head Pain currently is 10 out of 10 on a pain scale. Quality of pain is described as aching, throbbing. Neuro: Reports dizziness, headache a syncopal episode weakness. Cardiovascular: Reports chest pain, fatigue. Respiratory: Reports shortness of breath. Musculoskeletal: Reports pain in L side of body. Historical: - Allergies: 13:27 PENICILLINS; young; ll1 - PMHx: 13:27 Anxiety; Asthma; GERD; Hypertension; Migraines; ll1 - PSHx: 13:27 Cornea transplant L eye; ll1 - Immunization history:: Adult Immunizations up to date. - Social history:: Smoking status: Patient denies any tobacco usage or history of. Screenin:34 Abuse screen: Denies threats or abuse. Nutritional screening: No deficits noted. ll1 Tuberculosis screening: No symptoms or risk factors identified. Fall Risk Fall in past 12 months (25 points). Secondary diagnosis (15 points) impaired mobility, IV access (20 points). Total Anderson Fall Scale indicates High Risk Score (45 or more points). Fall prevention measures have been instituted. Side Rails Up X 2 Placed Close to Nursing Station Frequent Obs/Assessments Occuring Family Present and informed to notify staff if the need to leave the bedside As available patient and family educated on Fall Prevention Program and Strategies. Assessment: 14:25 Reassessment: No changes from previously documented assessment. Patient and/or family ll1 updated on plan of care and expected duration. Pain level reassessed. Patient is alert, oriented x 3, equal unlabored respirations, skin warm/dry/pink. States he believes they let him go home too early. States "I think I need to stay in the hospital a couple more days, and rest in a different environment." C. Page informed. 15:25 Reassessment: No changes from previously documented assessment. Patient and/or family ll1 updated on plan of care and expected duration. Pain level reassessed. Patient is alert, oriented x 3, equal unlabored respirations, skin warm/dry/pink. 16:25 Reassessment: No changes from previously documented assessment. Patient and/or family ll1 updated on plan of care and expected duration. Pain level reassessed. Patient is alert, oriented x 3, equal unlabored respirations, skin warm/dry/pink. Still wanting to be admitted again. CCandy Page informed. . 17:30 Reassessment: No changes from previously documented assessment. Patient and/or family ll1 updated on plan of care and expected duration. Pain level reassessed. Patient is alert, oriented x 3, equal unlabored respirations, skin warm/dry/pink. 18:30 Reassessment: No changes from previously documented assessment. Patient and/or family ll1 updated on plan of care and expected duration. Pain level reassessed. Patient is alert, oriented x 3, equal unlabored respirations, skin warm/dry/pink. 19:15 Reassessment: Patient and/or family updated on plan of care and expected duration. Pain vc1 level reassessed. Patient is alert, oriented x 3, equal unlabored respirations, skin warm/dry/pink. General: Appears in no apparent distress. uncomfortable, Behavior is calm, cooperative, appropriate for age. Pain: Denies pain. Neuro: No deficits noted. Cardiovascular: No deficits noted. Vital Signs: 13:33 BP 151 / 88; Pulse 101; Resp 16; Temp 97.0; Pulse Ox 99% ; Pain 10/10; ll1 16:28 BP 124 / 101; Pulse 78; Resp 16; Pulse Ox 95% ; ll1 17:30 BP 128 / 89; Pulse 79; Resp 16; Pulse Ox 99% ; ll1 18:30 BP 131 / 84; Pulse 69; Resp 16; Pulse Ox 99% ; ll1 ED Course: 13:21 Patient arrived in ED. eb 13:25 Mamta Graham RN is Primary Nurse. ll1 13:25 Aidan Pacheco PA is PHCP. cp 13:25 Aidan Carranza MD is Attending Physician. cp 13:25 Arm band placed on Patient placed in an exam room, on a stretcher. ll1 13:29 Triage completed. ll1 13:34 Maintain EMS IV. Dressing intact. Good blood return noted. Site clean \\T\\ dry. Gauge \\T\\ ll 1 site: 20 G L AC. 13:35 Patient has correct armband on for positive identification. Bed in low position. Call ll1 light in reach. Side rails up X2. Client placed on continuous cardiac and pulse oximetry monitoring. NIBP monitoring applied. 14:04 XRAY Chest (1 view) In Process Unspecified. EDMS 18:54 XRAY Femur LEFT In Process Unspecified. EDMS 18:54 XRAY Tib Fib LEFT In Process Unspecified. EDMS 18:59 US Extremity Venous Unilateral Ltd In Process Unspecified. EDMS 19:29 Primary Nurse role handed off by Mamta Graham RN mw2 19:46 Katie Garcia RN is Primary Nurse. vc1 Administered Medications: 14:17 Not Given (given en routee): Aspirin Chewable Tablet 324 mg PO once; 81 mg tablets x 4 ph 14:25 Drug: Ativan (LORazepam) 1 mg Route: IVP; Site: left antecubital; ss 14:48 Follow up: Response: No adverse reaction; RASS: Alert and Calm (0) ll1 15:23 Drug: Magnesium Sulfate 1 grams Route: IVPB; Infused Over: 1 hrs; Site: left ll1 antecubital; 16:21 Follow up: Response: No adverse reaction; IV Status: Completed infusion; IV Intake: ll1 100ml 15:23 Drug: NS 0.9% 1000 ml Route: IV; Rate: 1000 ml; Site: left antecubital; ll1 18:55 Follow up: Response: No adverse reaction; IV Status: Completed infusion; IV Intake: ll1 1000ml 17:02 Drug: Tylenol 1000 mg Route: PO; ll1 18:55 Follow up: Response: No adverse reaction 1 17:49 Drug: fentaNYL (PF) 25 mcg {Note: rass 0, pain 10/10.} Route: IVP; Site: left ll1 antecubital; 18:55 Follow up: Response: No adverse reaction; Pain is decreased; RASS: Alert and Calm (0) [facility] Intake: 16:21 IV: 100ml; Total: 100ml. ll1 18:55 IV: 1000ml; Total: 1100ml. [facility] Outcome: 19:08 Discharge ordered by MD. linda 19:50 Patient left the ED. vc1 Signatures: Dispatcher [employer] EDMS Janie Abreu RN RN ss Page, Corey, PA PA cp [place], MyKena 2 Monisha Magallanes Lynsay, RN RN ll1 Katie Garcia RN RN vc1 Marianela Gonzales RN ph
--- NOTE | 2021-11-07 19:09 | EDPHYS ---
Physician Documentation [facility] Name: Holden Morris Age: 36 yrs Sex: Male : 1985 Arrival Date: 11/07/2021 Time: 13:21 Bed 20 Private MD: ED Physician Aidan Carranza HPI: 11/07 13:40 This 36 yrs old Black Male presents to ER via EMS with complaints of Chest Pain. cp 13:40 Onset: The symptoms/episode began/occurred today. cp 13:40 The patient or guardian reports chest pain that is located primarily in the anterior cp chest wall, left. The pain radiates to 13:40 Associated signs and symptoms: Pertinent positives: shortness of breath, Pertinent cp negatives: abdominal pain, diaphoresis, dizziness, syncope, vomiting. The chest pain is described as aching, throbbing. Duration: The patient or guardian reports a single episode, that is still ongoing, and unchanged. 13:40 The patient has been recently been admitted at [facility], was cp discharged yesterday, c/o syncope. Historical: - Allergies: 13:27 PENICILLINS; young; ll1 - PMHx: 13:27 Anxiety; Asthma; GERD; Hypertension; Migraines; ll1 - PSHx: 13:27 Cornea transplant L eye; ll1 - Immunization history:: Adult Immunizations up to date. - Social history:: Smoking status: Patient denies any tobacco usage or history of. ROS: 13:45 Cardiovascular: Positive for chest pain, Negative for edema, palpitations. cp 13:45 Constitutional: Negative for body aches, chills, fever, poor PO intake. cp 13:45 Eyes: Negative for injury, pain, redness, and discharge. cp 13:45 ENT: Negative for drainage from ear(s), ear pain, sore throat, difficulty swallowing, difficulty handling secretions. 13:45 Neck: Negative for pain with movement, pain at rest, stiffness. 13:45 Respiratory: Negative for cough, shortness of breath, wheezing. 13:45 Abdomen/GI: Negative for abdominal pain, vomiting, diarrhea, constipation. 13:45 Back: Negative for injury or acute deformity, radiated pain. 13:45 Neuro: Positive for weakness, Negative for altered mental status, dizziness, headache, loss of consciousness, syncope. 13:45 All other systems are negative. Exam: 13:50 Constitutional: The patient appears in no acute distress, alert, awake, cp non-diaphoretic, non-toxic, well developed, well nourished. 13:50 Head/Face: Normocephalic, atraumatic. cp 13:50 Eyes: Periorbital structures: appear normal, Conjunctiva: normal, no exudate, no injection, Sclera: no appreciated abnormality, Lids and lashes: appear normal, bilaterally. 13:50 ENT: External ear(s): are unremarkable, Nose: is normal, Mouth: Lips: moist, Oral mucosa: pink and intact, moist, Posterior pharynx: is normal, airway is patent, no erythema, no exudate. 13:50 Neck: ROM/movement: is normal, is supple, without pain, no range of motions limitations, no meningismus. 13:50 Chest/axilla: Inspection: normal, Palpation: is normal, no crepitus, no tenderness. 13:50 Cardiovascular: Rate: tachycardic, Rhythm: regular, Edema: is not appreciated, JVD: is not appreciated. 13:50 Respiratory: the patient does not display signs of respiratory distress, Respirations: normal, no use of accessory muscles, no retractions, labored breathing, is not present, Breath sounds: are clear throughout, no decreased breath sounds, no stridor, no wheezing. 13:50 Abdomen/GI: Inspection: abdomen appears normal, Palpation: abdomen is soft and non-tender, in all quadrants. 13:50 Back: pain, is absent, ROM is normal. 13:50 Neuro: Orientation: to person, place \T\ time. Mentation: is normal, Motor: moves all fours, strength is normal, Sensation: no obvious gross deficits. 14:30 ECG was reviewed by the Attending Physician. cp Vital Signs: 13:33 BP 151 / 88; Pulse 101; Resp 16; Temp 97.0; Pulse Ox 99% ; Pain 10/10; ll1 16:28 BP 124 / 101; Pulse 78; Resp 16; Pulse Ox 95% ; ll1 17:30 BP 128 / 89; Pulse 79; Resp 16; Pulse Ox 99% ; ll1 18:30 BP 131 / 84; Pulse 69; Resp 16; Pulse Ox 99% ; ll1 MDM: 13:26 Patient medically screened. cp 14:00 Differential diagnosis: abnormal EKG, acute myocardial infarction, pleurisy, pneumonia, cp pneumothorax, pulmonary embolus. 19:08 Data reviewed: vital signs, nurses notes, lab test result(s), EKG, radiologic studies, cp plain films. 19:08 Test interpretation: by ED physician or midlevel provider: ECG, plain radiologic cp studies. Special discussion: Based on the patient's history, exam, and Dx evaluation, there is no indication for emergent intervention or inpatient Tx. It is understood by the patient/guardian that if the Sx's persist or worsen they need to return immediately for re-evaluation. 11/07 13:39 Order name: Basic Metabolic Panel; Complete Time: 14:58 cp 11/07 14:58 Interpretation: Normal except: GLUC 124. cp 11/07 13:39 Order name: CBC with Diff; Complete Time: 14:09 cp 11/07 14:09 Interpretation: Normal except: HGB 12.0; HCT 37.5; MCV 73.4; MCH 23.6; MPV 7.3. cp 11/07 13:39 Order name: D-Dimer; Complete Time: 14:58 cp 11/07 13:39 Order name: LFT's; Complete Time: 14:58 cp 11/07 14:58 Interpretation: Normal except: GLOB 3.8; A/G 0.9. cp 11/07 13:39 Order name: Magnesium; Complete Time: 14:58 cp 11/07 14:58 Interpretation: Abnormal: MG 1.7. cp 11/07 13:39 Order name: NT PRO-BNP; Complete Time: 14:58 cp 11/07 13:39 Order name: PT-INR; Complete Time: 14:58 cp 11/07 13:39 Order name: Troponin HS; Complete Time: 14:58 cp 11/07 13:39 Order name: XRAY Chest (1 view); Complete Time: 14:58 cp 11/07 13:39 Order name: UDS; Complete Time: 15:15 cp 11/07 15:16 Interpretation: Reviewed. cp 11/07 13:39 Order name: Urine Microscopic Only; Complete Time: 15:15 cp 11/07 15:16 Interpretation: Reviewed. cp 11/07 14:41 Order name: Urine Dipstick-Ancillary; Complete Time: 14:58 EDMS 11/07 15:16 Interpretation: Normal except: UBLD Trace-intact; UPROT Trace. cp 11/07 17:37 Order name: XRAY Femur LEFT; Complete Time: 19:43 cp 11/07 19:43 Interpretation: Reviewed. 11/07 17:37 Order name: Troponin High Sensitivity; Complete Time: 18:38 cp 11/07 13:39 Order name: EKG; Complete Time: 13:40 cp 11/07 13:39 Order name: Cardiac monitoring; Complete Time: 13:47 cp 11/07 13:39 Order name: EKG - Nurse/Tech; Complete Time: 13:47 cp 11/07 13:39 Order name: IV Saline Lock; Complete Time: 13:47 cp 11/07 13:39 Order name: Labs collected and sent; Complete Time: 13:47 cp 11/07 13:39 Order name: O2 Per Protocol; Complete Time: 13:47 cp 11/07 13:39 Order name: O2 Sat Monitoring; Complete Time: 13:47 cp 11/07 13:39 Order name: Urine Dipstick-Ancillary (obtain specimen); Complete Time: 14:49 11/07 17:37 Order name: XRAY Tib Fib LEFT; Complete Time: 19:43 11/07 19:43 Interpretation: Report reviewed. 11/07 17:37 Order name: US Extremity Venous Unilateral Ltd; Complete Time: 19:43 11/07 19:44 Interpretation: Report reviewed. cp EC:30 Rate is 79 beats/min. Rhythm is regular. CO interval is normal. QRS interval is normal. cp QT interval is normal. T waves are Inverted in leads III, aVR. Interpreted by me. Reviewed by me. Administered Medications: 14:17 Not Given (given en routee): Aspirin Chewable Tablet 324 mg PO once; 81 mg tablets x 4 ph 14:25 Drug: Ativan (LORazepam) 1 mg Route: IVP; Site: left antecubital; 14:48 Follow up: Response: No adverse reaction; RASS: Alert and Calm (0) ll1 15:23 Drug: Magnesium Sulfate 1 grams Route: IVPB; Infused Over: 1 hrs; Site: left ll1 antecubital; 16:21 Follow up: Response: No adverse reaction; IV Status: Completed infusion; IV Intake: ll1 100ml 15:23 Drug: NS 0.9% 1000 ml Route: IV; Rate: 1000 ml; Site: left antecubital; 1 18:55 Follow up: Response: No adverse reaction; IV Status: Completed infusion; IV Intake: ll1 1000ml 17:02 Drug: Tylenol 1000 mg Route: PO; ll1 18:55 Follow up: Response: No adverse reaction 1 17:49 Drug: fentaNYL (PF) 25 mcg {Note: rass 0, pain 10/10.} Route: IVP; Site: left ll1 antecubital; 18:55 Follow up: Response: No adverse reaction; Pain is decreased; RASS: Alert and Calm (0) [facility] Disposition Summary: 11/07/21 19:08 Discharge Ordered Location: Home cp Problem: new cp Symptoms: have improved cp Condition: Stable cp Diagnosis - Chest pain, unspecified cp - Pain in left leg cp Followup: cp - With: Private Physician - When: 2 - 3 days - Reason: Recheck today's complaints Discharge Instructions: - Nonspecific Chest Pain, Adult cp - Musculoskeletal Pain cp - Discharge Summary Sheet ll1 - Aspirin and Your Heart cp Forms: - Medication Reconciliation Form cp - SBAR form ll1 - Thank You Letter cp - Antibiotic Education cp - Prescription Opioid Use cp Prescriptions: - Diclofenac Sodium 75 mg Oral tablet,delayed release (DR/EC) - take 1 tablet by ORAL route 2 times per day; 20 tablet; Refills: 0, Product cp Selection Permitted Signatures: Dispatcher [employer] Janie Ashley RN RN Aidan Pacheco PA PA cp Mamta Graham RN RN ll1 Marianela Gonzales RN ph Corrections: (The following items were deleted from the chart) 11/08 16:09 11/07 13:40 The chest pain is described as sharp, cp cp
--- NOTE | 2021-11-07 19:26 | RAD REPORT ---
EXAM DESCRIPTION: US - Extremity Venous Uni Ltd - 11/07/2021 6:57 pm CLINICAL HISTORY: PAIN COMPARISON: None. TECHNIQUE: Real-time sonographic evaluation of the left lower extremity deep venous system was perfo rmed. FINDINGS: Normal compressibility, flow augmentation, phasic flow and spontaneous flow is identified in the left lower extremity deep venous system. No intraluminal filling defects seen. IMPRESSION: No DVT in the left lower extremity.
--- NOTE | 2021-11-07 19:31 | RAD REPORT ---
EXAM DESCRIPTION: RAD - Tib Fib Left - 11/07/2021 6:52 pm CLINICAL HISTORY: fall COMPARISON: Tibia Fibula Left dated 03/21/2015 FINDINGS: No acute fracture. No malalignment. No significant focal degenerative changes. IMPRESSION: No acute osseous abnormality involving the tibia or fibula.
--- NOTE | 2021-11-07 19:31 | RAD REPORT ---
EXAM DESCRIPTION: RAD - Femur Left - 11/07/2021 6:52 pm CLINICAL HISTORY: fall COMPARISON: No comparisons FINDINGS: No acute fracture. No malalignment. No significant focal degenerative changes. IMPRESSION: No acute osseous abnormality involving the left hip.
[2021-11-07 19:55] VITALS: TEMP 97
[2021-11-07 19:57] VITALS: O2SAT 99
[2021-11-07 19:59] VITALS: BP 131/84
--- NOTE | 2021-11-09 09:01 | EKG ---
Test Date: 2021-11-07 Test Time: 14:24:39 Manager Managing: MALISSA MEASUREMENT RESULTS: Intervals: Rate: 79 HI: 152 QRSD: 80 QT: 336 QTc: 385 [place]: P: 47 HI: 152 QRS: 21 T: 9 INTERPRETIVE STATEMENTS: Normal sinus rhythm Normal ECG Compared to ECG 11/04/2021 23:05:06 No significant changes Electronically Signed On 11-09-21 08:56:58 CDT by Christopher Pacheco
== END 2021-11-07 19:50 | disposition home or self-care (01) ==
LOC: ER 13:19
DX: R07.9 Chest pain, unspecified (principal); M79.605 Pain in left leg; I10 Essential (primary) hypertension; F41.9 Anxiety disorder, unspecified; Z88.0 Allergy status to penicillin
CPT/HCPCS: 36415; 71045; 80048; 80076; 80307; 81003; 81015; 83735; 83880; 84484; 85025; 85379; 85610; 93005; 93971; 96361; 96365; 96375; 99283; J3010; J3475; J7030

== ENCOUNTER 2021-11-09 09:50 | Emergency (ER) | payer SELFPAY ==
[2021-11-09] MEDS ORDERED: NA CHLORIDE 0.9% 1,000 ML ONE (12:17)
--- NOTE | 2021-11-09 12:22 | RAD REPORT ---
EXAM DESCRIPTION: CT - Head Brain Wo Cont - 11/09/2021 12:12 pm CLINICAL HISTORY: Facial trauma, blunt COMPARISON: Head Brain Wo Cont dated 11/04/2021; Head Brain Wo Cont dated 08/03/2016; Head C Spine Mpr Wo Con dated 10/10/2021 TECHNIQUE: All CT scans are performed using dose optimization technique as appropriate and may inclu de automated exposure control or mA/KV adjustment according to patient size. FINDINGS: No intracranial hemorrhage, hydrocephalus or extra-axial fluid collection.No areas of brai n edema or evidence of midline shift. The paranasal sinuses and mastoids are clear. The calvarium is intact. IMPRESSION: No acute intracranial abnormality.
[2021-11-09 13:05] LABS: Absolute Lymphocytes (CBC) 2.2 K/uL (0.7-4.9); Hematocrit 42.4 % (39.6-49.0); Lymphocytes % 30.4 % (15.3-44.8); MPV 7.6 fL (7.6-11.3); RBC Red Blood Cell Count 5.66 M/uL (4.33-5.43)
[2021-11-09 13:13] LABS: Protime INR 1.09
[2021-11-09 13:26] LABS: ALT/SGPT 43 U/L (12-78); AST/SGOT 22 U/L (15-37); Albumin 4.1 g/dL (3.4-5.0); Alkaline Phosphatase 66 U/L (45-117); BUN Blood Urea Nitrogen 15 mg/dL (7-18); Bicarbonate 29 mmol/L (21-32); Bilirubin Total 0.4 mg/dL (0.2-1.0); Glucose Level 96 mg/dL (74-106); NT PRO-BNP 25 pg/mL (<125); Protein, Total 8.4 g/dL (6.4-8.2); Sodium Level 137 mmol/L (136-145); Troponin High Sensitivity 4.9 pg/mL (<58.9)
[2021-11-09 13:28] LABS: Bilirubin Direct < 0.1 mg/dL (0-0.2)
--- NOTE | 2021-11-09 13:41 | ER ---
Nurse's Notes [facility] Name: Holden Morris Age: 36 yrs Sex: Male : 1985 Arrival Date: 11/09/2021 Time: 09:52 Bed 11 Private MD: Diagnosis: Chest pain, unspecified;Weakness Presentation: 11/09 10:25 Chief complaint: Patient states: passed out two times this morning, feel off his bed iw and hit his head, and felt dizzy, has been feeling weak since Tuesday he was admitted in hospital for falling at work, was seen here Tuesday and Tuesday for chest pains. Coronavirus screen: At this time, the client does not indicate any symptoms associated with coronavirus-19. Ebola Screen: Patient negative for fever greater than or equal to 101.5 degrees Fahrenheit, and additional compatible Ebola Virus Disease symptoms Patient denies exposure to infectious person. Patient denies travel to an Ebola-affected area in the 21 days before illness onset. No symptoms or risks identified at this time. Initial Sepsis Screen: Does the patient meet any 2 criteria? No. Patient's initial sepsis screen is negative. Does the patient have a suspected source of infection? No. Patient's initial sepsis screen is negative. Risk Assessment: Do you want to hurt yourself or someone else? Patient reports no desire to harm self or others. Onset of symptoms was November 09, 2021. 10:25 Method Of Arrival: Ambulatory iw 10:25 Acuity: STONE 3 iw Historical: - Allergies: 10:27 PENICILLINS; young; iw - PMHx: 10:27 Anxiety; Asthma; GERD; Hypertension; Migraines; iw - PSHx: 10:27 Cornea transplant L eye; iw Screenin:05 Abuse screen: Denies threats or abuse. Denies injuries from another. Nutritional iw screening: No deficits noted. Tuberculosis screening: No symptoms or risk factors identified. Fall Risk None identified. Assessment: 12:04 General: Appears in no apparent distress. Behavior is calm, cooperative. Pain: iw Complains of pain in chest Pain does not radiate. Pain began 2-3 days ago. Is. Neuro: Level of Consciousness is awake, alert, obeys commands, Oriented to person, place, time, situation, Moves all extremities. Cardiovascular: Capillary refill < 3 seconds in bilateral fingers Patient's skin is warm and dry. Respiratory: Respiratory effort is even, unlabored, Respiratory pattern is regular. Vital Signs: 10:25 BP 141 / 88; Pulse 85; Resp 16; Temp 98.5; Pulse Ox 98% on R/A; iw ED Course: 09:52 Patient arrived in ED. as 10:27 Triage completed. iw 10:27 Arm band placed on. iw 11:52 Aidan Carranza MD is Attending Physician. lorna 12:06 Keshia Vernon, RN is Primary Nurse. iw 12:14 CT Head Brain wo Cont In Process Unspecified. EDMS 12:59 Basic Metabolic Panel Sent. iw 12:59 CBC with Diff Sent. iw 12:59 D-Dimer Sent. iw 12:59 LFT's Sent. iw 12:59 Magnesium Sent. iw 12:59 NT PRO-BNP Sent. iw 12:59 PT-INR Sent. iw 12:59 Troponin HS Sent. iw 13:40 Christopher Pacheco MD is Referral Physician. lorna 13:55 UDS Sent. 5 13:55 Initial lab(s) drawn, by ok, sent to lab. Urine collected: clean catch specimen, clear, 5 EKG done, by ED staff, reviewed by Aidan Carranza MD. 13:56 XRAY Chest (1 view) In Process Unspecified. EDMS Administered Medications: 13:11 Drug: NS 0.9% 1000 ml Route: IV; Rate: 1 bolus; Site: left antecubital; iw 14:15 Follow up: IV Status: Completed infusion iw Outcome: 13:41 Discharge ordered by . lorna 14:27 Patient left the ED. iw Signatures: Dispatcher [employer] EDMS Aidan Carranza MD MD cha Martinez, Amelia as Williams, Irene, RN RN Valeria [facility]
--- NOTE | 2021-11-09 13:41 | EDPHYS ---
Physician Documentation [facility] Name: Holden Morris Age: 36 yrs Sex: Male : 1985 Arrival Date: 11/09/2021 Time: 09:52 Bed 11 Private MD: EDUARDO Physician Aidan Carranza HPI: 11/09 13:34 This 36 yrs old Black Male presents to ER via Ambulatory with complaints of Chest Pain, lorna Breathing Difficulty, Passed Out Prior To Arrival. 13:34 The patient or guardian reports chest pain that is located primarily in the anterior lorna chest wall, bilaterally. The pain does not radiate. Associated signs and symptoms: The patient has no apparent associated signs or symptoms. The chest pain is described as aching. Severity of pain: At its worst the pain was mild in the emergency department the pain is unchanged. Historical: - Allergies: 10:27 PENICILLINS; young; iw - PMHx: 10:27 Anxiety; Asthma; GERD; Hypertension; Migraines; iw - PSHx: 10:27 Cornea transplant L eye; iw ROS: 13:35 Constitutional: Negative for fever, chills, and weight loss, Eyes: Negative for injury, lorna pain, redness, and discharge, ENT: Negative for injury, pain, and discharge, Neck: Negative for injury, pain, and swelling, Abdomen/GI: Negative for abdominal pain, nausea, vomiting, diarrhea, and constipation, Back: Negative for injury and pain, : Negative for injury, bleeding, discharge, and swelling, MS/Extremity: Negative for injury and deformity, Skin: Negative for injury, rash, and discoloration, Neuro: Negative for headache, weakness, numbness, tingling, and seizure. 13:35 Cardiovascular: Positive for chest pain, of the chest, Negative for 13:35 Respiratory: Positive for shortness of breath. Exam: 13:35 Constitutional: This is a well developed, well nourished patient who is awake, alert, lorna and in no acute distress. Head/Face: Normocephalic, atraumatic. Eyes: Pupils equal round and reactive to light, extra-ocular motions intact. Lids and lashes normal. Conjunctiva and sclera are non-icteric and not injected. Cornea within normal limits. Periorbital areas with no swelling, redness, or edema. ENT: Nares patent. No nasal discharge, no septal abnormalities noted. Tympanic membranes are normal and external auditory canals are clear. Oropharynx with no redness, swelling, or masses, exudates, or evidence of obstruction, uvula midline. Mucous membranes moist. Neck: Trachea midline, no thyromegaly or masses palpated, and no cervical lymphadenopathy. Supple, full range of motion without nuchal rigidity, or vertebral point tenderness. No Meningismus. Chest/axilla: Normal chest wall appearance and motion. Nontender with no deformity. No lesions are appreciated. Cardiovascular: Regular rate and rhythm with a normal S1 and S2. No gallops, murmurs, or rubs. Normal PMI, no JVD. No pulse deficits. Respiratory: Lungs have equal breath sounds bilaterally, clear to auscultation and percussion. No rales, rhonchi or wheezes noted. No increased work of breathing, no retractions or nasal flaring. Abdomen/GI: Soft, non-tender, with normal bowel sounds. No distension or tympany. No guarding or rebound. No evidence of tenderness throughout. Back: No spinal tenderness. No costovertebral tenderness. Full range of motion. Skin: Warm, dry with normal turgor. Normal color with no rashes, no lesions, and no evidence of cellulitis. MS/ Extremity: Pulses equal, no cyanosis. Neurovascular intact. Full, normal range of motion. Neuro: Awake and alert, GCS 15, oriented to person, place, time, and situation. Cranial nerves II-XII grossly intact. Motor strength 5/5 in all extremities. Sensory grossly intact. Cerebellar exam normal. Normal gait. Psych: Awake, alert, with orientation to person, place and time. Behavior, mood, and affect are within normal limits. 13:35 Musculoskeletal/extremity: ROM: intact in all extremities, full active range of motion, in all extremities, Circulation is intact in all extremities. Sensation intact. Compartment Syndrome exam of affected extremity: is normal. Joints: All joints appear normal with full range of motion. DVT Exam: No signs of deep vein thrombosis. no pain, no swelling, no tenderness, negative Homans' sign noted on exam, no appreciated bluish discoloration, no erythema, no increased warmth. 13:50 ECG was reviewed by the Attending Physician. [facility] Vital Signs: 10:25 BP 141 / 88; Pulse 85; Resp 16; Temp 98.5; Pulse Ox 98% on R/A; iw MDM: 11:52 Patient medically screened. lorna 13:37 Antibiotic administration: Not indicated. Differential diagnosis: Anemia Anxiety lorna Reaction Bronchitis abnormal EKG, acute myocardial infarction, congestive heart failure pancreatitis, pleurisy, pneumonia, pneumothorax, pulmonary embolus, stable angina, unstable angina, Myocardial Infarction pneumonia, pulmonary edema, Pulmonary Embolism reactive airway disease, Unstable Angina. HEART Score: History: Slightly Suspicious (0), ECG: Normal (0), Age: < or = 45 years (0), Risk Factors: No Risk Factors Known (0), Troponin: < or = 1 x Normal Limit (0). The patient's deep vein thrombosis risk score was calculated as follows: Total Score: 0. This patient was found to be at low risk for a deep vein thrombosis by using the Well's assessment criteria Total Score: 0-2 Pts- Low Risk. The patient's pulmonary embolism risk score was calculated as follows: Total Score: 0-2 points. This patient was found to be at low risk for a pulmonary embolism by using the Well's assessment criteria Total Score: 0-2 points. This patient was found to be at low risk for a pulmonary embolism by using the Well's assessment criteria. JACOB Risk Score: TOTAL SCORE = 0. Immunization status:. Data reviewed: vital signs, nurses notes, lab test result(s), EKG, radiologic studies, plain films. Data interpreted: night monitor: rate is 85 beats/min, rhythm is regular, Pulse oximetry: on room air is 98 %. 11/09 11:53 Order name: Basic Metabolic Panel; Complete Time: 13:33 [facility] 11/09 11:53 Order name: CBC with Diff; Complete Time: 13:27 [facility] 11/09 11:53 Order name: D-Dimer; Complete Time: 13:27 [facility] 11/09 11:53 Order name: LFT's; Complete Time: 13:33 [facility] 11/09 11:53 Order name: Magnesium; Complete Time: 13:33 [facility] 11/09 11:53 Order name: NT PRO-BNP; Complete Time: 13:33 [facility] 11/09 11:53 Order name: PT-INR; Complete Time: 13:27 [facility] 11/09 11:53 Order name: Troponin HS; Complete Time: 13:33 [facility] 11/09 11:53 Order name: XRAY Chest (1 view) [facility] 11/09 11:53 Order name: EKG; Complete Time: 11:54 [facility] 11/09 11:53 Order name: CT Head Brain wo Cont; Complete Time: 12:34 [facility] 11/09 11:53 Order name: UDS [facility] 11/09 13:56 Order name: Urine Dipstick-Ancillary EDMS 11/09 11:53 Order name: Cardiac monitoring; Complete Time: 13:55 [facility] 11/09 11:53 Order name: EKG - Nurse/Tech; Complete Time: 12:58 [facility] 11/09 11:53 Order name: IV Saline Lock; Complete Time: 12:59 [facility] 11/09 11:53 Order name: Labs collected and sent; Complete Time: 12:59 [facility] 11/09 11:53 Order name: O2 Per Protocol; Complete Time: 12:59 [facility] 11/09 11:53 Order name: O2 Sat Monitoring; Complete Time: 12:59 [facility] 11/09 11:53 Order name: Urine Dipstick-Ancillary (obtain specimen); Complete Time: 13:55 [facility] EC:50 Rate is 63 beats/min. Rhythm is regular. QRS [place] is Normal. VA interval is normal. QRS lorna interval is normal. QT interval is normal. No Q waves. T waves are Normal. No ST changes noted. Clinical impression: Normal ECG and No evidence of ischemia. Interpreted by me. Reviewed by me. Administered Medications: 13:11 Drug: NS 0.9% 1000 ml Route: IV; Rate: 1 bolus; Site: left antecubital; iw 14:15 Follow up: IV Status: Completed infusion iw Disposition Summary: 11/09/21 13:41 Discharge Ordered Location: Home lorna Problem: new lorna Symptoms: have improved lorna Condition: Stable lorna Diagnosis - Chest pain, unspecified lorna - Weakness lorna Followup: lorna - With: Private Physician - When: 2 - 3 days - Reason: Recheck today's complaints, Continuance of care, Re-evaluation by your physician Followup: lorna - With: Christopher Pacheco MD - When: 2 - 3 days - Reason: Recheck today's complaints, Re-evaluation by your physician Discharge Instructions: - Discharge Summary Sheet lorna - Nonspecific Chest Pain, Adult lorna - Weakness lorna - Fatigue lorna - Nonspecific Chest Pain, Adult, [id number] lorna - Weakness, Ejbr-[id number] lorna - Aspirin and Your Heart lorna Forms: - Medication Reconciliation Form lorna - Thank You Letter lorna - Antibiotic Education lorna - Prescription Opioid Use lorna Signatures: Dispatcher [employer] EDAidan De La Garza MD MD cha Williams, Irene, RN RN iw
[2021-11-09 13:55] LABS: Urine Blood Trace-intact (Negative); Urine Glucose Negative (Negative); Urine Protein Negative (Negative); Urine Specific Gravity >=1.030 (1.005-1.030)
--- NOTE | 2021-11-09 14:00 | RAD REPORT ---
EXAM DESCRIPTION: RAD - Chest Single View - 11/09/2021 1:54 pm CLINICAL HISTORY: Cough Chest pain. COMPARISON: Chest Single View dated 11/07/2021; Chest Single View dated 11/05/2021; Chest Single View da palmer 01/12/2021; Chest Single View dated 07/23/2020 FINDINGS: Portable technique limits examination quality. The lungs are grossly clear. The heart is normal in size. No displaced fractures. IMPRESSION: No acute intrathoracic process suspected.
[2021-11-09 14:17] LABS: Barbiturates NEGATIVE (NEGATIVE); Benzodiazepines NEGATIVE (NEGATIVE); Cocaine NEGATIVE (NEGATIVE); METHAMPHETAM NEGATIVE (NEGATIVE); Methadone NEGATIVE (NEGATIVE); Opiates NEGATIVE (NEGATIVE); Phencyclidine NEGATIVE (NEGATIVE); THC Cannibis NEGATIVE (NEGATIVE)
[2021-11-09 15:03] VITALS: BP 141/88; TEMP 98.5; O2SAT 98
--- NOTE | 2021-11-10 10:20 | EKG ---
Test Date: 2021-11-09 Test Time: 13:48:25 Spiritual Counselor: CLAUDIA MEASUREMENT RESULTS: Intervals: Rate: 63 [place]: 142 QRSD: 78 QT: 376 QTc: 384 [place]: P: 51 [place]: 142 QRS: 31 T: 31 INTERPRETIVE STATEMENTS: Normal sinus rhythm Normal ECG Compared to ECG 11/07/2021 14:24:39 No significant changes Electronically Signed On 11-10-21 10:17:40 CDT by Christopher Pacheco
== END 2021-11-09 14:27 | disposition home or self-care (01) ==
LOC: ER 09:50
DX: R07.9 Chest pain, unspecified (principal); R53.1 Weakness; K21.9 Gastro-esophageal reflux disease without esophagitis; I10 Essential (primary) hypertension; Z88.0 Allergy status to penicillin
CPT/HCPCS: 36415; 70450; 71045; 80048; 80076; 80307; 81003; 83735; 83880; 84484; 85025; 85379; 85610; 93005; 96360; 99284; J7030

== ENCOUNTER 2021-12-02 20:43 | Emergency (ER) | payer SELFPAY ==
[2021-12-02] MEDS ORDERED: FLUORESCEIN SODIUM 1 MG/WRAP ONE (22:17)
[2021-12-02] MEDS ORDERED: TETRACAINE HCL 0.5% 4ML OPTH ONE (22:17)
[2021-12-02] MEDS ORDERED: TETANUS & DIPHTHERIA TOX,ADULT 0.5 ML VIAL ONE (22:21)
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
[2021-12-02] MEDS ORDERED: TOBRAMYCIN SULF 0.3% OPTH OINT ONE (23:37)
[2021-12-02 23:52] VITALS: O2SAT 100
[2021-12-02 23:53] VITALS: BP 113/78; TEMP 97.5
== END 2021-12-02 23:46 | disposition home or self-care (01) ==
LOC: ER 20:43
DX: S05.02XA Injury of conjunctiva and corneal abrasion without foreign body, left eye, initial encounter (principal); I10 Essential (primary) hypertension; Z23 Encounter for immunization; Z88.0 Allergy status to penicillin
CPT/HCPCS: 90471; 90714; 99283

== ENCOUNTER 2021-12-16 11:07 | Emergency (ER) | payer SELFPAY ==
[2021-12-16] MEDS ORDERED: HYDROCODONE/APAP 5/325 MG TAB ONE (11:38)
[2021-12-16] MEDS ORDERED: LIDOCAINE 4% PATCH ONE (11:38)
[2021-12-16] MEDS ORDERED: KETOROLAC 30 MG/ML INJ ONE (11:38)
--- NOTE | 2021-12-16 12:56 | EDPHYS ---
Physician Documentation [facility] Name: Holden Morris Age: 36 yrs Sex: Male : 1985 Arrival Date: 12/16/2021 Time: 11:10 Bed 12 Private MD: ED Physician Phillip Parsons HPI: 12/16 11:28 This 36 yrs old Black Male presents to ER via Ambulatory with complaints of Hip Pain, pm1 Low Back Pain. 11:28 The patient presents with pain that is acute. The symptoms are located in the left low pm1 back and left hip. The pain does not radiate. The problem was sustained playing yesterday with kids at [place] event yesterday with water house from [employer] truck. Started having back pain a few hours after event. Onset: The symptoms/episode began/occurred yesterday. Modifying factors: The patient symptoms are alleviated by remaining still, lying down, the patient symptoms are aggravated by sitting. Associated signs and symptoms: Pertinent negatives: abdominal pain, chest pain, dysuria, fever. Severity of symptoms: in the emergency department the symptoms are unchanged. The patient has not experienced similar symptoms in the past. The patient has not recently seen a physician. Historical: - Allergies: 11:14 PENICILLINS; young; tw2 - Home Meds: 11:20 diclofenac sodium 75 mg oral TbEC 1 tab once daily [Active]; tw2 - PMHx: 11:14 Anxiety; Asthma; GERD; Hypertension; Migraines; tw2 - PSHx: 11:14 Cornea transplant L eye; tw2 - Immunization history:: Client reports receiving the 2nd dose of the Covid vaccine. - Social history:: Smoking status: Patient denies any tobacco usage or history of. ROS: 11:28 Constitutional: Negative for fever, chills, and weight loss, Cardiovascular: Negative pm1 for chest pain, palpitations, and edema, Respiratory: Negative for shortness of breath, cough, wheezing, and pleuritic chest pain, Abdomen/GI: Negative for abdominal pain, nausea, vomiting, diarrhea, and constipation. 11:28 MS/Extremity: Negative for injury and deformity, Skin: Negative for injury, rash, and discoloration, Neuro: Negative for headache, weakness, numbness, tingling, and seizure. 11:28 Back: Positive for of the left low back and left hip. 11:28 All other systems are negative. Exam: 11:28 Constitutional: This is a well developed, well nourished patient who is awake, alert, pm1 and in no acute distress. Head/Face: Normocephalic, atraumatic. 11:28 Skin: Warm, dry with normal turgor. Normal color with no rashes, no lesions, and no evidence of cellulitis. MS/ Extremity: Pulses equal, no cyanosis. Neurovascular intact. Full, normal range of motion. 11:28 Cardiovascular: Exam negative for acute changes, Rate: normal, Rhythm: regular, Pulses: no pulse deficits are appreciated. 11:28 Respiratory: Exam negative for acute changes, respiratory distress, shortness of breath. 11:28 Neuro: Exam negative for acute changes, Orientation: is normal, Motor: is normal, moves all fours. Vital Signs: 11:12 BP 121 / 100; Pulse 81; Resp 17; Temp 97.8(TE); Pulse Ox 99% on R/A; Weight 95.25 kg; tw2 Height 5 ft. 9 in. (175.26 cm); Pain 9/10; 11:41 BP 120 / 75; Pulse 89; Resp 17; Pulse Ox 100% on R/A; tw2 13:18 BP 126 / 72; Pulse 86; Resp 18; Pulse Ox 100% on R/A; Pain 2/10; ld1 11:12 Body Mass Index 31.01 (95.25 kg, 175.26 cm) tw2 MDM: 11:21 Patient medically screened. pm1 12:06 Data reviewed: vital signs. Data interpreted: Pulse oximetry: on room air is 100 %. pm1 Interpretation: normal. 12:53 Counseling: I had a detailed discussion with the patient and/or guardian regarding: the pm1 historical points, exam findings, and any diagnostic results supporting the discharge/admit diagnosis, the need for outpatient follow up, to return to the emergency department if symptoms worsen or persist or if there are any questions or concerns that arise at home. Administered Medications: 11:34 Drug: Ketorolac 60 mg Route: IM; Site: left gluteus; tw2 11:35 Drug: Lidoderm Patch 5 % (700 mg/patch) 1 patches {Note: left low back.} Route: tw2 Topical; Site: affected area; 11:36 Drug: HYDROcodone-acetaminophen 5 mg-325 mg 1 tabs {Note: RASS 0.} Route: PO; tw2 Disposition: 14:31 Co-signature as Attending Physician, Phillip Parsons MD I agree with the assessment and kdr plan of care. Disposition Summary: 12/16/21 12:55 Discharge Ordered Location: Home pm1 Problem: new pm1 Symptoms: have improved pm1 Condition: Stable pm1 Diagnosis - Strain of muscle, fascia and tendon of lower back pm1 - Low back pain pm1 Followup: pm1 - With: Emergency Department - When: As needed - Reason: Worsening of condition Followup: pm1 - With: Private Physician - When: 2 - 3 days - Reason: Recheck today's complaints, Continuance of care, Re-evaluation by your physician Discharge Instructions: - Acute Back Pain, Adult pm1 - Muscle Strain pm1 - Discharge Summary Sheet tw2 Forms: - Medication Reconciliation Form pm1 - Thank You Letter pm1 - Antibiotic Education pm1 - Prescription Opioid Use pm1 Prescriptions: - Lidoderm 5 % Topical adhesive patch,medicated - apply 1 patch by TRANSDERMAL route once daily As needed 12 hours on and 12 pm1 hours off in a 24-hour period; 10 patch; Refills: 0, Product Selection Permitted - Cyclobenzaprine 10 mg Oral Tablet - take 1 tablet by ORAL route every 8 hours As needed; 30 tablet; Refills: 0, pm1 Product Selection Permitted - Diclofenac Sodium 75 mg Oral tablet,delayed release (DR/EC) - take 1 tablet by ORAL route 2 times per day As needed; 30 tablet; Refills: 0, pm1 Product Selection Permitted Signatures: Phillip Parsons MD MD [facility] Anthony Guthrie NP TREE PULLER pm1 Oliva Garcia RN RN tw2 Corrections: (The following items were deleted from the chart) 11:20 11:14 Home Meds: None; tw2 tw2
--- NOTE | 2021-12-16 12:56 | ER ---
Nurse's Notes [facility] Name: Holden Morris Age: 36 yrs Sex: Male : 1985 Arrival Date: 12/16/2021 Time: 11:10 Bed 12 Private MD: Diagnosis: Strain of muscle, fascia and tendon of lower back;Low back pain Presentation: 12/16 11:12 Chief complaint: Patient states: Tuesday i was walking and i felt a sharp pain on my tw2 LEFT side. and it feels like its pulling into my groin area. sitting or walking is when i get the pain. Coronavirus screen: At this time, the client does not indicate any symptoms associated with coronavirus-19. Ebola Screen: Patient denies travel to an Ebola-affected area in the 21 days before illness onset. Initial Sepsis Screen: Does the patient meet any 2 criteria? No. Patient's initial sepsis screen is negative. Does the patient have a suspected source of infection? No. Patient's initial sepsis screen is negative. Risk Assessment: Do you want to hurt yourself or someone else? Patient reports no desire to harm self or others. Onset of symptoms was December 16, 2021. 11:12 Method Of Arrival: Ambulatory tw2 11:12 Acuity: STONE 4 tw2 Triage Assessment: 11:14 General: Appears in no apparent distress. Behavior is calm, cooperative, appropriate tw2 for age. Pain: Complains of pain in low back LEFT side and down LEFT leg. Neuro: Level of Consciousness is awake, alert, obeys commands, Oriented to person, place, time, situation. Historical: - Allergies: 11:14 PENICILLINS; young; tw2 - Home Meds: 11:20 diclofenac sodium 75 mg oral TbEC 1 tab once daily [Active]; tw2 - PMHx: 11:14 Anxiety; Asthma; GERD; Hypertension; Migraines; tw2 - PSHx: 11:14 Cornea transplant L eye; tw2 - Immunization history:: Client reports receiving the 2nd dose of the Covid vaccine. - Social history:: Smoking status: Patient denies any tobacco usage or history of. Screenin:15 Abuse screen: Denies threats or abuse. Nutritional screening: No deficits noted. tw2 Tuberculosis screening: No symptoms or risk factors identified. Fall Risk None identified. Assessment: 11:40 General: Appears in no apparent distress. Behavior is calm, cooperative, appropriate tw2 for age. Pain: Complains of pain in left low back. Neuro: Simental Agitation-Sedation Scale (RASS): 0 - Alert and Calm Level of Consciousness is awake, alert, obeys commands, Oriented to person, place, time, situation. Respiratory: Airway is patent Respiratory effort is even, unlabored, Respiratory pattern is regular, symmetrical. Musculoskeletal: Circulation, motion, and sensation intact. Range of motion: intact in all extremities. 13:18 Reassessment: Patient appears in no apparent distress at this time. Patient and/or ld1 family updated on plan of care and expected duration. Pain level reassessed. Patient is alert, oriented x 3, equal unlabored respirations, skin warm/dry/pink. Vital Signs: 11:12 BP 121 / 100; Pulse 81; Resp 17; Temp 97.8(TE); Pulse Ox 99% on R/A; Weight 95.25 kg; tw2 Height 5 ft. 9 in. (175.26 cm); Pain 9/10; 11:41 BP 120 / 75; Pulse 89; Resp 17; Pulse Ox 100% on R/A; tw2 13:18 BP 126 / 72; Pulse 86; Resp 18; Pulse Ox 100% on R/A; Pain 2/10; ld1 11:12 Body Mass Index 31.01 (95.25 kg, 175.26 cm) tw2 ED Course: 11:10 Patient arrived in ED. as 11:14 Triage completed. tw2 11:15 Arm band placed on. tw2 11:18 Bed in low position. Call light in reach. tw2 11:21 Anthony Guthrie NP is PHCP. pm1 11:21 Phillip Parsons MD is Attending Physician. pm1 11:39 Oliva Garcia RN is Primary Nurse. tw2 13:18 No provider procedures requiring assistance completed. Patient did not have IV access ld1 during this emergency room visit. Administered Medications: 11:34 Drug: Ketorolac 60 mg Route: IM; Site: left gluteus; tw2 11:35 Drug: Lidoderm Patch 5 % (700 mg/patch) 1 patches {Note: left low back.} Route: tw2 Topical; Site: affected area; 11:36 Drug: HYDROcodone-acetaminophen 5 mg-325 mg 1 tabs {Note: RASS 0.} Route: PO; tw2 Medication: 11:15 VIS not applicable for this client. tw2 Outcome: 12:55 Discharge ordered by MD. pm1 13:18 Discharged to home ambulatory. ld1 13:18 Condition: stable 13:18 Discharge instructions given to patient, Instructed on discharge instructions, follow up and referral plans. medication usage, Demonstrated understanding of instructions, follow-up care, medications, Prescriptions given X 3. 13:19 Patient left the ED. ld1 Signatures: Sadia Oliver Patrick, NP FRACTIONATION SUPERVISOR pm1 Oliva Garcia RN RN tw2 Alicia Roberts RN RN ld1 Corrections: (The following items were deleted from the chart) 11:20 11:14 Home Meds: None; tw2 tw2
[2021-12-16 13:25] VITALS: TEMP 97.8
[2021-12-16 13:27] VITALS: O2SAT 100
[2021-12-16 13:32] VITALS: BP 126/72
== END 2021-12-16 13:19 | disposition home or self-care (01) ==
LOC: ER 11:07
DX: S39.012A Strain of muscle, fascia and tendon of lower back, initial encounter (principal); X58.XXXA Exposure to other specified factors, initial encounter; Y93.01 Activity, walking, marching and hiking; Y92.9 Unspecified place or not applicable; Z88.0 Allergy status to penicillin; F41.9 Anxiety disorder, unspecified; J45.909 Unspecified asthma, uncomplicated; K21.9 Gastro-esophageal reflux disease without esophagitis; I10 Essential (primary) hypertension
CPT/HCPCS: 96372; 99283; J2001

== ENCOUNTER 2021-12-24 10:32 | Emergency (ER) | payer SELFPAY ==
[2021-12-24] MEDS ORDERED: TETRACAINE HCL 0.5% 4ML OPTH ONE (10:59)
[2021-12-24] MEDS ORDERED: FLUORESCEIN SODIUM 1 MG/WRAP ONE (11:00)
--- NOTE | 2021-12-24 12:19 | ER ---
Nurse's Notes [facility] Name: Holden Morris Age: 36 yrs Sex: Male : 1985 Arrival Date: 12/24/2021 Time: 10:33 Bed 7 Private MD: Diagnosis: Unspecified acute conjunctivitis, left eye Presentation: 12/24 10:41 Chief complaint: Patient states: L eye redness and pain that has been ongoing for ss weeks. Pt reports that he was here on 12/02 for same issue. but was unable to obtain prescription for eye drops. Coronavirus screen: Client denies travel out of the [place] in the last 14 days. Ebola Screen: Patient denies exposure to infectious person. Patient denies travel to an Ebola-affected area in the 21 days before illness onset. Initial Sepsis Screen: Does the patient meet any 2 criteria? No. Patient's initial sepsis screen is negative. Does the patient have a suspected source of infection? No. Patient's initial sepsis screen is negative. Risk Assessment: Do you want to hurt yourself or someone else? Patient reports no desire to harm self or others. Onset of symptoms was November 2021. 10:41 Method Of Arrival: Ambulatory ss 10:41 Acuity: STONE 4 ss Historical: - Allergies: 10:42 PENICILLINS; young; ss - PMHx: 10:42 Anxiety; Asthma; GERD; Hypertension; Migraines; ss - PSHx: 10:42 Cornea transplant L eye; ss - Immunization history:: Adult Immunizations up to date. - Social history:: Smoking status: Patient denies any tobacco usage or history of. Screenin:11 Abuse screen: Denies threats or abuse. Denies injuries from another. Nutritional jh6 screening: No deficits noted. Tuberculosis screening: No symptoms or risk factors identified. Fall Risk None identified. Assessment: 11:09 General: Appears in no apparent distress. uncomfortable, Behavior is calm, cooperative. jh6 Pain: Complains of pain in left eye Pain currently is 8 out of 10 on a pain scale. Quality of pain is described as sharp, shooting, Pain began 3 hours ago. EENT: Eyes are tearing on outer aspect of conjuctiva of left eye, iris of left eye and inner aspect of conjunctiva of left eye. 11:48 Reassessment: Patient appears in no apparent distress at this time. Patient and/or ph family updated on plan of care and expected duration. Pain level reassessed. Patient is alert, oriented x 3, equal unlabored respirations, skin warm/dry/pink. Vital Signs: 10:43 BP 133 / 76; Pulse 85; Resp 15; Temp 97.6(TE); Pulse Ox 100% on R/A; Weight 97.52 kg; ss Height 5 ft. 9 in. (175.26 cm); Pain 9/10; 12:37 BP 127 / 86; Pulse 81; Resp 18; Temp 98.0; Pulse Ox 99% on R/A; ph 10:43 Body Mass Index 31.75 (97.52 kg, 175.26 cm) ED Course: 10:33 Patient arrived in ED. rg4 10:40 Aidan Pacheco PA is PHCP. cp 10:40 Phillip Parsons MD is Attending Physician. cp 10:42 Triage completed. 10:42 Arm band placed on right wrist. 10:52 Priscila Alfredo, NICOL is Primary Nurse. [facility] 11:11 Assist provider with eye exam of left eye. using fluorescein stain, Performed by Aidan [facility] Tara HERMAN Patient tolerated well. 11:12 Bed in low position. Call light in reach. Side rails up X 1. [facility] 12:18 Radha Brunner MD is Referral Physician. cp 12:36 Patient did not have IV access during this emergency room visit. ph Administered Medications: 11:07 Drug: Tetracaine Drops 0.5 % 1 drops Route: Ophthalmic; Site: left eye; [facility] 12:37 Follow up: Response: No adverse reaction 12:29 Not Given (Physician Discretion): Tobramycin Drops (0.3 %) 1 drops Ophthalmic once cp 12:36 Drug: Gentamicin Drops 0.3 % 2 drops Route: Ophthalmic; Site: left eye; ph 12:36 Follow up: Response: No adverse reaction; Medication administered at discharge. Medication: 11:12 VIS not applicable for this client. [facility] Outcome: 12:19 Discharge ordered by . cp 12:36 Discharged to home ambulatory. ph 12:36 Condition: good 12:36 Discharge instructions given to patient, Instructed on discharge instructions, follow up and referral plans. medication usage, Demonstrated understanding of instructions, follow-up care, medications, Prescriptions given X 1. 12:37 Patient left the ED. ph Signatures: Janie Abreu, RN RN ss Marianela Gonzales RN RN ph Aidan Pacheco PA PA cp Garcia, Rubi rg4 Priscila Alfredo RN RN jh6
--- NOTE | 2021-12-24 12:19 | EDPHYS ---
Physician Documentation [facility] Name: Holden Morris Age: 36 yrs Sex: Male : 1985 Arrival Date: 12/24/2021 Time: 10:33 Bed 7 Private MD: ED Physician Phillip Parsons HPI: 12/24 11:00 This 36 yrs old Black Male presents to ER via Ambulatory with complaints of Eye Problem.cp 11:00 The patient is experiencing matting or discharge, redness, to the left eye. Onset: The cp symptoms/episode began/occurred at least 4 weeks ago. Associated signs and symptoms: Pertinent negatives: dizziness, fever, decreased vision. Patient reports he was seen in this ED for similar complaints about 2 weeks ago, antibiotic eye drops were administered while he was in ED and he was given RX for antibiotic eye drops. Patient reports he has been unable to fill RX for antibiotic eye drops due to inability to afford medication. Patient reports redness improved , but seemed to worsen yesterday. Patient reports history of left eye cornea transplant done in 2018. Historical: - Allergies: 10:42 PENICILLINS; young; ss - PMHx: 10:42 Anxiety; Asthma; GERD; Hypertension; Migraines; ss - PSHx: 10:42 Cornea transplant L eye; ss - Immunization history:: Adult Immunizations up to date. - Social history:: Smoking status: Patient denies any tobacco usage or history of. ROS: 11:05 Constitutional: Negative for body aches, chills, fever, poor PO intake. cp 11:05 Eyes: Positive for discharge, pain, redness, of the left eye, Negative for injury or cp acute deformity, matting, vision loss. 11:05 ENT: Negative for drainage from ear(s), ear pain, sore throat, difficulty swallowing, difficulty handling secretions. 11:05 Respiratory: Negative for cough, shortness of breath, wheezing. 11:05 Skin: Negative for cellulitis, rash. 11:05 Neuro: Negative for headache. 11:05 All other systems are negative. Exam: 11:10 Constitutional: The patient appears in no acute distress, alert, awake, comfortable, cp non-toxic, well developed, well nourished. 11:10 Head/Face: Normocephalic, atraumatic. cp 11:10 Eyes: Periorbital structures: appear normal, Pupils: equal, round, and reactive to light and accomodation, Extraocular movements: intact throughout, Conjunctiva: injected, in the left eye, Corneas: abrasion, that is small, on the left, at 2 o'clock, foreign body, is not appreciated, a fluorescein strip employed to appreciate the findings, Lids and lashes: appear normal, bilaterally, Visual tabor: are intact, Examination of the other eye reveals no obvious gross abnormality, Intraocular pressure: left eye = 4mmHg. 11:10 ENT: External ear(s): are unremarkable, Ear canal(s): are normal, clear, TM's: dullness, bilaterally, Nose: is normal, Mouth: Lips: moist, Oral mucosa: pink and intact, moist, Posterior pharynx: Airway: no evidence of obstruction, patent. 11:10 Neck: ROM/movement: is normal, is supple, without pain, no range of motions limitations, Lymph nodes: no appreciated lymphadenopathy. 11:10 Chest/axilla: Inspection: normal. 11:10 Cardiovascular: Rate: normal. 11:10 Respiratory: the patient does not display signs of respiratory distress, Respirations: normal, no use of accessory muscles, no retractions, labored breathing, is not present. 11:10 Skin: cellulitis, is not appreciated, no rash present. Vital Signs: 10:43 BP 133 / 76; Pulse 85; Resp 15; Temp 97.6(TE); Pulse Ox 100% on R/A; Weight 97.52 kg; ss Height 5 ft. 9 in. (175.26 cm); Pain 9/10; 12:37 BP 127 / 86; Pulse 81; Resp 18; Temp 98.0; Pulse Ox 99% on R/A; ph 10:43 Body Mass Index 31.75 (97.52 kg, 175.26 cm) ss MDM: 10:46 Patient medically screened. cp 12:18 Data reviewed: vital signs, nurses notes. cp 12:18 Differential diagnosis: Corneal abrasion of Corneal ulcer of Acute iritis of Acute cp glaucoma in Counseling: I had a detailed discussion with the patient and/or guardian regarding: the historical points, exam findings, and any diagnostic results supporting the discharge/admit diagnosis, the need for outpatient follow up, an opthalmologist, to return to the emergency department if symptoms worsen or persist or if there are any questions or concerns that arise at home. 12/24 10:50 Order name: Eye Tray; Complete Time: 11:08 cp 12/24 10:50 Order name: Fluoresene Opth strip; Complete Time: 11:08 cp 12/24 10:50 Order name: Visual Acuity; Complete Time: 11:08 cp Administered Medications: 11:07 Drug: Tetracaine Drops 0.5 % 1 drops Route: Ophthalmic; Site: left eye; [facility] 12:37 Follow up: Response: No adverse reaction ph 12:29 Not Given (Physician Discretion): Tobramycin Drops (0.3 %) 1 drops Ophthalmic once cp 12:36 Drug: Gentamicin Drops 0.3 % 2 drops Route: Ophthalmic; Site: left eye; ph 12:36 Follow up: Response: No adverse reaction; Medication administered at discharge. ph Disposition Summary: 12/24/21 12:19 Discharge Ordered Location: Home cp Problem: new cp Symptoms: have improved cp Condition: Stable cp Diagnosis - Unspecified acute conjunctivitis, left eye cp Followup: cp - With: Radha Brunner MD - When: 1 - 2 days - Reason: Recheck today's complaints Discharge Instructions: - Discharge Summary Sheet cp - Bacterial Conjunctivitis, Adult cp - How to Use Eye Drops and Eye Ointments cp Forms: - Medication Reconciliation Form cp - Thank You Letter cp - Antibiotic Education cp - Prescription Opioid Use cp Prescriptions: - Gentamicin 0.3 % Ophthalmic Drops - instill 1 drop by OPHTHALMIC route every 4 hours for 7 days; 1 bottle; Refills: cp 0, Product Selection Permitted Signatures: Janie Abreu RN RN Marianela Gonzales RN RN ph Aidan Pacheco, VIRGIL PA cp Priscila Alfredo RN RN [id number] Corrections: (The following items were deleted from the chart) 12/25 11:37 12/24 11:00 Patient reports he was seen in this ED for similar complaints about 2 weeks cp ago, antibiotic eye drops were administered while he was in ED and he was given RX for antibiotic eye drops. Patient reports he has been unable to fill RX for antibiotic eye drops due to inability to afford medication. Patient reports redness improved , but seemed to worsen yesterday. cp
[2021-12-24] MEDS ORDERED: GENTAMICIN 0.3% OPTH DROP 5ML ONE (12:34)
[2021-12-24 12:51] VITALS: BP 127/86; TEMP 98; O2SAT 99
== END 2021-12-24 12:37 | disposition home or self-care (01) ==
LOC: ER 10:32
DX: H10.32 Unspecified acute conjunctivitis, left eye (principal); I10 Essential (primary) hypertension; Z88.0 Allergy status to penicillin
CPT/HCPCS: 99283

== ENCOUNTER 2022-05-08 19:32 | Emergency (ER) | payer SELFPAY ==
--- NOTE | 2022-05-08 19:59 | RAD REPORT ---
EXAM DESCRIPTION: RAD - Chest Single View - 05/08/2022 7:46 pm CLINICAL HISTORY: CHEST PAIN COMPARISON: <Comparisons> FINDINGS: Lines: None. Lungs: No evidence of edema or pneumonia. Pleural: No significant pleural effusions or pneumothorax. Cardiac: The heart size is within normal limits. Mediastinum: Within normal limits. Bones: No acute fractures. Other: None IMPRESSION: No acute cardiopulmonary disease.
--- NOTE | 2022-05-08 20:11 | RAD REPORT ---
EXAM DESCRIPTION: CT - Head C Spine Cap Wo Con - 05/08/2022 7:56 pm CLINICAL HISTORY: Trauma, head and neck injury. Chest, abdomen and pelvis pain. Chest pain COMPARISON: No comparisons TECHNIQUE: CT head without contrast. CT cervical spine without contrast with coronal and sagittal reformatted images. CT chest, abdomen and pelvis with coronal and sagittal reformatted images of the spine. All CT scans are performed using dose optimization technique as appropriate and may include automated exposure control or mA/KV adjustment according to patient size. FINDINGS: CT HEAD WITHOUT CONTRAST: No intracranial hemorrhage, hydrocephalus or extra-axial fluid collection. No acute large vascular te rritory infarct. The paranasal sinuses and mastoids are clear. The calvarium is intact. CT CERVICAL SPINE WITHOUT CONTRAST: No fracture or subluxation. The prevertebral soft tissues are normal in thickness. CT CHEST, ABDOMEN, PELVIS: Thorax: Chest Wall: No abnormal mass Lungs: No acute abnormality. Pleura: No effusions or pneumothorax. Jossy/Mediastinum: No lymphadenopathy. Aorta/Pulmonary Arteries: Unremarkable Heart: Normal size. Abdomen/Pelvis: Liver: No acute abnormality or suspicious lesions. Biliary: No biliary ductal dilatation. Stomach: No significant focal abnormality. Duodenum: No significant focal abnormality. Pancreas: No significant abnormality. Spleen: No significant abnormality. Adrenal: No suspicious lesions. Kidney/ureter: No hydronephrosis. No renal calculi. Retroperitoneum: No retroperitoneal adenopathy. Vascular: No aneurysm. Bowel: No significant focal abnormality. Peritoneum: No ascites or free air. Bladder: Grossly unremarkable. Reproductive: No adnexal masses. Bones: No acute fracture. Other: n/a IMPRESSION: 1. No acute intracranial abnormality. 2. No acute fracture or traumatic malalignment cervical spine. 3. No evidence of significant trauma to the chest, abdomen, or pelvis.
[2022-05-08] MEDS ORDERED: MORPHINE 4 MG/ML SYR ONE (20:13)
[2022-05-08] MEDS ORDERED: ONDANSETRON 4 MG/2 ML VIAL ONE (20:14)
[2022-05-08 20:23] LABS: Absolute Lymphocytes (CBC) 2.8 K/uL (0.7-4.9); Hematocrit 42.3 % (39.6-49.0); Lymphocytes % 40.8 % (15.3-44.8); MCV 75.1 fL (80-100); MPV 7.3 fL (7.6-11.3); RBC Red Blood Cell Count 5.63 M/uL (4.33-5.43)
[2022-05-08 20:34] LABS: Urine Blood Trace-intact (Negative); Urine Glucose Negative (Negative); Urine Protein Negative (Negative); Urine Specific Gravity 1.025 (1.005-1.030)
[2022-05-08 20:43] LABS: BUN Blood Urea Nitrogen 16 mg/dL (7-18); Bicarbonate 30 mmol/L (21-32); Glomerular Filtration Rate 90 ml/min (=/>90); Glucose Level 108 mg/dL (74-106); Magnesium 2.1 mg/dL (1.8-2.4); Sodium Level 137 mmol/L (136-145); Troponin High Sensitivity 5.6 pg/mL (<58.9)
[2022-05-08 20:45] LABS: NT PRO-BNP < 5 pg/mL (<125)
[2022-05-08 20:45] LABS: Specific Gravity 1.022 (1.005-1.030); Urine Bacteria <20 /HPF (<20); Urine Bilirubin NEGATIVE (Negative); Urine Blood Trace (Negative); Urine Clarity Clear (Clear); Urine Color Light-Yellow (Yellow); Urine Glucose NEGATIVE (Negative); Urine Mucus Slight /HPF (None Seen); Urine Protein TRACE (Negative); Urine RBC <5 /HPF (None Seen); Urine Sperm Present (None Seen); Urine Urobilinogen Normal (Normal)
[2022-05-08 20:51] LABS: Barbiturates NEGATIVE (NEGATIVE); Benzodiazepines NEGATIVE (NEGATIVE); Cocaine NEGATIVE (NEGATIVE); METHAMPHETAM NEGATIVE (NEGATIVE); Methadone NEGATIVE (NEGATIVE); Opiates NEGATIVE (NEGATIVE); Phencyclidine NEGATIVE (NEGATIVE); THC Cannibis NEGATIVE (NEGATIVE)
--- NOTE | 2022-05-09 00:53 | ER ---
Nurse's Notes [facility] Name: Holden Morris Age: 37 yrs Sex: Male : 1985 Arrival Date: 05/08/2022 Time: 19:34 Bed 5 Private MD: Diagnosis: Syncope;Chest pain, unspecified Presentation: 05/08 19:38 Chief complaint: EMS states: pt fell down the stairs, stated it was 5 stairs he did aa9 loose consciousness, pt stated he had pressure like chest pain prior to the fall, no injuries observed, C Collar in place. Care prior to arrival: Cervical collar in place. Medication(s) given: ASA, 325 mg, x 1, IV initiated. 20 GA, in the left antecubital area, Glucose check: 94. Mechanism of Injury: Fall down 5 steps. Trauma event details: Injury occurred in the [facility], Injury occurred: at home. Injury occurred: May 08, 2022 Injury occurred at: 19:41. 19:38 Acuity: STONE 2 aa9 19:38 Method Of Arrival: EMS: [facility] aa9 19:46 Coronavirus screen: Vaccine status: Patient reports receiving the 2nd dose of the covid aa9 vaccine. Ebola Screen: No symptoms or risks identified at this time. Initial Sepsis Screen: Does the patient meet any 2 criteria? No. Patient's initial sepsis screen is negative. Does the patient have a suspected source of infection? No. Patient's initial sepsis screen is negative. Risk Assessment: Do you want to hurt yourself or someone else? Patient reports no desire to harm self or others. Onset of symptoms was May 08, 2022. Triage Assessment: 19:45 General: Appears in no apparent distress. uncomfortable, Behavior is cooperative, aa9 appropriate for age, anxious. Pain: Complains of pain in chest and left arm Pain currently is 9.5 out of 10 on a pain scale. EENT: No signs and/or symptoms were reported regarding the EENT system. Neuro: Level of Consciousness is awake, alert, obeys commands, Oriented to person, place, time, situation, Interface Analyst are weak on left Moves all extremities. Speech is normal, Facial symmetry appears normal, Pupils are PERRLA. Cardiovascular: Capillary refill < 3 seconds Patient's skin is warm and dry. Respiratory: Airway is patent Respiratory effort is even, unlabored. GI: No signs and/or symptoms were reported involving the gastrointestinal system. : No signs and/or symptoms were reported regarding the genitourinary system. Derm: No signs and/or symptoms reported regarding the dermatologic system. Trauma Activation: Physician: ED Physician; Name: Issa; Notified At: 19:41; Arrived At: 19:41 Physician: General Surgeon; Name: ; Notified At: 19:41; Arrived At: Physician: Radiology; Name: ; Notified At: 19:41; Arrived At: Physician: Respiratory; Name: ; Notified At: 19:41; Arrived At: Physician: Lab; Name: ; Notified At: 19:41; Arrived At: Historical: - Allergies: 19:46 PENICILLINS; young; aa9 - PMHx: 19:46 Anxiety; Asthma; GERD; Hypertension; Migraines; aa9 - PSHx: 19:46 Cornea transplant L eye; aa9 - Code Status:: Full code. - Immunization history: Last tetanus immunization: unknown. - Social history:: Smoking status: Patient denies any tobacco usage or history of. Screenin:44 Abuse screen: Denies threats or abuse. Denies injuries from another. Tuberculosis aa9 screening: No symptoms or risk factors identified. 05/09 01:05 Nutritional screening: No deficits noted. Fall Risk None identified. as6 Primary Survey: 05/08 19:43 NO uncontrolled hemorrhage observed. Breathing/Chest: Spontaneous respiratory effort, aa9 equal unlabored respirations, breath sounds clear bilaterally, regular pattern, symmetrical chest rise and fall. Circulation: No external hemorrhage present. Regular and strong central pulse, skin warm/dry/normal color. Disability Pupils are equal, round, reactive to light and accommodation. Client is alert. Exposure/Environment: A warming method has been applied: A warm blanket has been provided to the patient. Reassessment Breathing: Spontaneous respiratory effort, equal unlabored respirations, breath sounds clear bilaterally, regular pattern with symmetrical chest rise and fall. Circulation: No external hemorrhage noted. Regular and strong central pulse, skin warm/dry/normal color. Disability: Pupils. Secondary Survey: 22:47 HEENT: No deficits noted. Gastrointestinal: No deficits noted. : No deficits noted. aa9 Musculoskeletal: No deficits noted. Assessment: 19:41 General: Appears uncomfortable, Behavior is cooperative, anxious. Pain: Complains of aa9 pain in chest, anterior aspect of left shoulder and left bicep Pain currently is 9.5 out of 10 on a pain scale. Neuro: Level of Consciousness is awake, alert, obeys commands, Oriented to person, place, time, situation, Interface Analyst are weak on left Moves all extremities. Speech is normal, Facial symmetry appears normal, Pupils are PERRLA, Intact. EENT: No signs and/or symptoms were reported regarding the EENT system. Cardiovascular: Parent/caregiver reports patient has had chest pain. Respiratory: Airway is patent Trachea midline Respiratory effort is even, unlabored. GI: No signs and/or symptoms were reported involving the gastrointestinal system. : No signs and/or symptoms were reported regarding the genitourinary system. Derm: No signs and/or symptoms reported regarding the dermatologic system. Musculoskeletal: Capillary refill < 3 seconds. 21:29 Reassessment: C Collar removed. aa9 21:29 General: Appears comfortable, Behavior is calm, cooperative, appropriate for age. aa9 Cardiovascular: Patient's skin is warm and dry. Respiratory: Airway is patent Respiratory effort is even, unlabored. Vital Signs: 19:44 BP 173 / 93; Pulse 93; Resp 18 S; Temp 98(O); Pulse Ox 100% on R/A; Weight 92.99 kg aa9 (R); Height 5 ft. 8 in. (172.72 cm) (R); Pain 9/10; 20:28 BP 112 / 98; Pulse 71; Resp 12 S; Pulse Ox 99% on R/A; aa9 20:32 BP 100 / 60; Pulse 78; Resp 13 S; Pulse Ox 98% on R/A; as6 21:45 BP 118 / 69; Pulse 72; Resp 17 S; Pulse Ox 99% on R/A; aa9 23:45 BP 130 / 69; Pulse 67; Resp 17 S; Pulse Ox 97% on R/A; aa9 05/09 01:04 BP 115 / 52; Pulse 71; Resp 13 S; Pulse Ox 96% on R/A; as6 05/08 19:44 Body Mass Index 31.17 (92.99 kg, 172.72 cm) aa9 Malina Coma Score: 05/08 19:44 Eye Response: spontaneous(4). Verbal Response: oriented(5). Motor Response: obeys aa9 commands(6). Total: 15. 20:00 Eye Response: spontaneous(4). Verbal Response: oriented(5). Motor Response: obeys aa9 commands(6). Total: 15. 20:29 Eye Response: spontaneous(4). Verbal Response: oriented(5). Motor Response: obeys aa9 commands(6). Total: 15. 21:40 Eye Response: spontaneous(4). Verbal Response: oriented(5). Motor Response: obeys aa9 commands(6). Total: 15. 21:45 Eye Response: spontaneous(4). Verbal Response: oriented(5). Motor Response: obeys aa9 commands(6). Total: 15. 22:15 Eye Response: spontaneous(4). Verbal Response: oriented(5). Motor Response: obeys aa9 commands(6). Total: 15. 05/09 00:00 Eye Response: spontaneous(4). Verbal Response: oriented(5). Motor Response: obeys aa9 commands(6). Total: 15. Trauma Score (Adult): 05/08 19:44 Eye Response: spontaneous(1); Verbal Response: oriented(1); Motor Response: obeys aa9 commands(2); Systolic BP: > 89 mm Hg(4); Respiratory Rate: 10 to 29 per min(4); Reform Score: 15; Trauma Score: 12 ED Course: 19:34 Patient arrived in ED. wm 19:40 Phillip Parsons MD is Attending Physician. kdr 19:41 Triage completed. aa9 19:45 Patient has correct armband on for positive identification. Bed in low position. Call aa9 light in reach. Side rails up X2. 19:45 Patient maintains SpO2 saturation greater than 95% on room air. aa9 19:47 Maintain EMS IV. Dressing intact. Site clean \T\ dry. Gauge \T\ site: 20G L AC. aa 9 19:48 XRAY Chest (1 view) In Process Unspecified. EDMS 19:57 CT Traumagram (Head C Spine CAP wo con) In Process Unspecified. EDMS 20:28 Lisa Hill, RN is Primary Nurse. aa9 20:29 Basic Metabolic Panel Sent. aa9 20:29 Type And Screen Sent. aa9 20:29 Troponin High Sensitivity Sent. aa9 20:29 BNP Sent. aa9 20:29 Magnesium Sent. aa9 20:29 UDS Sent. aa9 20:29 ETOH Level Sent. aa9 20:29 Urinalysis Sent. aa9 20:30 Lights dimmed. Warm blanket given. Head of bed lowered. Assisted with urinal. aa9 20:38 Thermoregulation: warm blanket given to patient. aa9 20:39 Arm band placed on. aa9 21:17 Troponin High Sensitivity: Repeat 3 hours after in itial draw Sent. aa9 05/09 01:05 No provider procedures requiring assistance completed. IV discontinued, intact, as6 bleeding controlled, No redness/swelling at site. Pressure dressing applied. Administered Medications: 05/08 20:28 Drug: morphine 4 mg Route: IVP; Infused Over: 4 mins; Site: left antecubital; aa9 21:17 Follow up: Response: No adverse reaction aa9 20:28 Drug: Zofran (Ondansetron) 4 mg Route: IVP; Site: left antecubital; aa9 21:17 Follow up: Response: No adverse reaction aa9 Medication: 05/09 01:05 VIS not applicable for this client. as6 Intake: 01:08 PO: 100ml (Juice); Total: 100ml. as6 Outcome: 00:52 Discharge ordered by . kdr 01:05 Discharged to home ambulatory. as6 01:05 Condition: stable 01:05 Patient's length of stay in the Emergency Department was greater than 2 hours. pending imaging and blood workPatient's length of stay extended due to 01:05 Discharge instructions given to patient, Instructed on discharge instructions, follow as6 up and referral plans. Demonstrated understanding of instructions, follow-up care. 01:08 Patient left the ED. as6 Signatures: Dispatcher [employer] Phillip Pierre MD MD kdr Marsh, Wendy wm Slawson, Ashby, RN RN as6 Lisa Hill, NICOL RN aa9
--- NOTE | 2022-05-09 00:53 | EDPHYS ---
Physician Documentation [facility] Name: Holden Morris Age: 37 yrs Sex: Male : 1985 Arrival Date: 05/08/2022 Time: 19:34 Bed 5 Private MD: ED Physician Phillip Parsons HPI: 05/08 20:21 This 37 yrs old Black Male presents to ER via EMS with complaints of Fall Injury. kdr 20:21 Patient states that he was at the top of stairs had chest pain [place] over and the next kdr thing he knows he is at the bottom of the stairs he has no recollection of the fall. Now he complains only of his chest pain.. 05/09 05:05 Onset: The symptoms/episode began/occurred suddenly, just prior to arrival. Severity of kdr symptoms: At their worst the symptoms were mild in the emergency department the symptoms are unchanged. The patient has not experienced similar symptoms in the past. The patient has not recently seen a physician. Historical: - Allergies: 05/08 19:46 PENICILLINS; young; aa9 - PMHx: 19:46 Anxiety; Asthma; GERD; Hypertension; Migraines; aa9 - PSHx: 19:46 Cornea transplant L eye; aa9 - Code Status:: Full code. - Immunization history: Last tetanus immunization: unknown. - Social history:: Smoking status: Patient denies any tobacco usage or history of. ROS: 05/09 05:05 Constitutional: Negative for fever, chills, and weight loss, Eyes: Negative for injury, kdr pain, redness, and discharge, ENT: Negative for injury, pain, and discharge, Neck: Negative for injury, pain, and swelling, Respiratory: Negative for shortness of breath, cough, wheezing, and pleuritic chest pain, Abdomen/GI: Negative for abdominal pain, nausea, vomiting, diarrhea, and constipation, Back: Negative for injury and pain, : Negative for injury, bleeding, discharge, and swelling, MS/Extremity: Negative for injury and deformity, Skin: Negative for injury, rash, and discoloration, Neuro: Negative for headache, weakness, numbness, tingling, and seizure activity. Psych: Negative for depression, anxiety, suicide ideation, homicidal ideation, and hallucinations, Allergy/Immunology: Negative for hives, rash, and allergies, Endocrine: Negative for neck swelling, polydipsia, polyuria, polyphagia, and marked weight changes, Hematologic/Lymphatic: Negative for swollen nodes, abnormal bleeding, and unusual bruising. Cardiovascular: Positive for chest pain, Negative for edema, orthopnea, palpitations, paroxysmal nocturnal dyspnea. Neuro: Positive for dizziness, syncope, Negative for altered mental status, gait disturbance, headache, hearing loss, loss of consciousness, numbness, seizure activity, tinnitus, tremor, visual changes, weakness. Exam: 05:05 Constitutional: This is a well developed, well nourished patient who is awake, alert, kdr and in no acute distress. Head/Face: Normocephalic, atraumatic. Eyes: Pupils equal round and reactive to light, extra-ocular motions intact. Lids and lashes normal. Conjunctiva and sclera are non-icteric and not injected. Cornea within normal limits. Periorbital areas with no swelling, redness, or edema. Neck: Trachea midline, no thyromegaly or masses palpated, and no cervical lymphadenopathy. Supple, full range of motion without nuchal rigidity, or vertebral point tenderness. No Meningismus. Chest/axilla: Normal chest wall appearance and motion. Nontender with no deformity. No lesions are appreciated. Cardiovascular: Regular rate and rhythm with a normal S1 and S2. No gallops, murmurs, or rubs. Normal PMI, no JVD. No pulse deficits. Respiratory: Lungs have equal breath sounds bilaterally, clear to auscultation and percussion. No rales, rhonchi or wheezes noted. No increased work of breathing, no retractions or nasal flaring. Abdomen/GI: Soft, non-tender, with normal bowel sounds. No distension or tympany. No guarding or rebound. No evidence of tenderness throughout. Back: No spinal tenderness. No costovertebral tenderness. Full range of motion. Skin: Warm, dry with normal turgor. Normal color with no rashes, no lesions, and no evidence of cellulitis. MS/ Extremity: Pulses equal, no cyanosis. Neurovascular intact. Full, normal range of motion. Neuro: Awake and alert, GCS 15, oriented to person, place, time, and situation. Cranial nerves II-XII grossly intact. Motor strength 5/5 in all extremities. Sensory grossly intact. Cerebellar exam normal. Normal gait. Psych: Awake, alert, with orientation to person, place and time. Behavior, mood, and affect are within normal limits. Vital Signs: 05/08 19:44 BP 173 / 93; Pulse 93; Resp 18 S; Temp 98(O); Pulse Ox 100% on R/A; Weight 92.99 kg aa9 (R); Height 5 ft. 8 in. (172.72 cm) (R); Pain 9/10; 20:28 BP 112 / 98; Pulse 71; Resp 12 S; Pulse Ox 99% on R/A; aa9 20:32 BP 100 / 60; Pulse 78; Resp 13 S; Pulse Ox 98% on R/A; as6 21:45 BP 118 / 69; Pulse 72; Resp 17 S; Pulse Ox 99% on R/A; aa9 23:45 BP 130 / 69; Pulse 67; Resp 17 S; Pulse Ox 97% on R/A; aa9 05/09 01:04 BP 115 / 52; Pulse 71; Resp 13 S; Pulse Ox 96% on R/A; as6 05/08 19:44 Body Mass Index 31.17 (92.99 kg, 172.72 cm) aa9 Letcher Coma Score: 05/08 19:44 Eye Response: spontaneous(4). Verbal Response: oriented(5). Motor Response: obeys aa9 commands(6). Total: 15. 20:00 Eye Response: spontaneous(4). Verbal Response: oriented(5). Motor Response: obeys aa9 commands(6). Total: 15. 20:29 Eye Response: spontaneous(4). Verbal Response: oriented(5). Motor Response: obeys aa9 commands(6). Total: 15. 21:40 Eye Response: spontaneous(4). Verbal Response: oriented(5). Motor Response: obeys aa9 commands(6). Total: 15. 21:45 Eye Response: spontaneous(4). Verbal Response: oriented(5). Motor Response: obeys aa9 commands(6). Total: 15. 22:15 Eye Response: spontaneous(4). Verbal Response: oriented(5). Motor Response: obeys aa9 commands(6). Total: 15. 05/09 00:00 Eye Response: spontaneous(4). Verbal Response: oriented(5). Motor Response: obeys aa9 commands(6). Total: 15. Trauma Score (Adult): 05/08 19:44 Eye Response: spontaneous(1); Verbal Response: oriented(1); Motor Response: obeys aa9 commands(2); Systolic BP: > 89 mm Hg(4); Respiratory Rate: 10 to 29 per min(4); Malina Score: 15; Trauma Score: 12 MDM: 05/09 00:52 Patient medically screened. kdr 05:05 Data reviewed: vital signs, nurses notes, lab test result(s), radiologic studies. kdr Counseling: I had a detailed discussion with the patient and/or guardian regarding: the historical points, exam findings, and any diagnostic results supporting the discharge/admit diagnosis, lab results, radiology results, the need for outpatient follow up. 05/08 19:36 Order name: Basic Metabolic Panel; Complete Time: 21:06 wm 05/08 19:36 Order name: CBC with Diff; Complete Time: 21: 05/08 19:36 Order name: Type And Screen; Complete Time: 21: 05/08 19:36 Order name: ETOH Level; Complete Time: 21: wm 05/08 19:36 Order name: Troponin High Sensitivity; Complete Time: 21:06 05/08 19:37 Order name: BNP; Complete Time: 21: 05/08 19:36 Order name: CT Traumagram (Head C Spine CAP wo con); Complete Time: 21:06 05/08 19:37 Order name: Magnesium; Complete Time: 21:06 05/08 19:37 Order name: UDS; Complete Time: 21: 05/08 19:39 Order name: Urinalysis; Complete Time: 21: 05/08 19:40 Order name: XRAY Chest (1 view); Complete Time: 21:06 wm 05/08 20:35 Order name: Urine Dipstick-Ancillary; Complete Time: 21:06 EDMS 05/08 21:08 Order name: Troponin High Sensitivity: Repeat 3 hours after in itial draw; Complete kdr Time: 22:22 05/08 23:48 Order name: Troponin High Sensitivity; Complete Time: 00:50 EDMS 05/08 19:36 Order name: Labs collected and sent; Complete Time: 20:29 wm 05/08 19:40 Order name: EKG; Complete Time: 19:41 wm 05/08 19:40 Order name: Cardiac monitoring; Complete Time: 20:02 wm 05/08 19:40 Order name: EKG - Nurse/Tech; Complete Time: 20:28 wm 05/08 19:40 Order name: IV Saline Lock; Complete Time: 20:28 wm 05/08 19:40 Order name: O2 Per Protocol; Complete Time: 20:29 wm 05/08 19:40 Order name: O2 Sat Monitoring; Complete Time: 20:29 wm Administered Medications: 05/08 20:28 Drug: morphine 4 mg Route: IVP; Infused Over: 4 mins; Site: left antecubital; aa9 21:17 Follow up: Response: No adverse reaction aa9 20:28 Drug: Zofran (Ondansetron) 4 mg Route: IVP; Site: left antecubital; aa9 21:17 Follow up: Response: No adverse reaction aa9 Disposition Summary: 05/09/22 00:52 Discharge Ordered Location: Home kdr Problem: new kdr Symptoms: have improved kdr Condition: Stable kdr Diagnosis - Syncope kdr - Chest pain, unspecified kdr Followup: kdr - With: Private Physician - When: 2 - 3 days - Reason: If symptoms return, Further diagnostic work-up, Recheck today's complaints, Continuance of care, Re-evaluation by your physician Discharge Instructions: - Discharge Summary Sheet kdr - Nonspecific Chest Pain, Adult, [id number] kdr - Syncope, [id number] kdr Forms: - Medication Reconciliation Form kdr - Thank You Letter kdr Signatures: Dispatcher [employer] Phillip Pierre MD MD kdr Marsh, Wendy Lisa Hill, RN RN aa9
[2022-05-09 02:17] VITALS: TEMP 98
[2022-05-09 02:24] VITALS: BP 130/69; O2SAT 97
--- NOTE | 2022-05-10 08:32 | EKG ---
Test Date: 2022-05-08 Test Time: 20:23:32 Hedis Abstractor: ONEIL MEASUREMENT RESULTS: Intervals: Rate: 80 NV: 146 QRSD: 78 QT: 342 QTc: 394 [place]: P: 53 NV: 146 QRS: 12 T: 33 INTERPRETIVE STATEMENTS: Normal sinus rhythm with sinus arrhythmia RSR' or QR pattern in V1 suggests right ventricular conduction delay Borderline ECG Compared to ECG 11/09/2021 13:48:25 RSR' in V1 or V2 now present Electronically Signed On 05-10-22 08:29:22 PLANT MAINTENANCE TECHNICIAN by Christopher Pacheco
== END 2022-05-09 01:08 | disposition home or self-care (01) ==
LOC: ER 19:32
DX: R07.9 Chest pain, unspecified (principal); R55 Syncope and collapse; I10 Essential (primary) hypertension; Z88.0 Allergy status to penicillin
CPT/HCPCS: 36415; 70450; 71045; 71250; 72125; 80048; 80307; 80320; 81001; 81003; 83735; 83880; 84484; 85025; 86850; 86900; 86901; 93005; 96374; 96375; 99284; J2405

== ENCOUNTER 2022-05-13 17:49 | Emergency (ER) | payer SELFPAY ==
--- NOTE | 2022-05-13 18:55 | RAD REPORT ---
EXAM DESCRIPTION: RAD - Chest Single View - 05/13/2022 6:50 pm CLINICAL HISTORY: COUGH COMPARISON: Chest Single View dated 05/08/2022; Chest Single View dated 11/09/2021; Chest Single View d ated 11/07/2021; Chest Single View dated 11/05/2021 FINDINGS: Lines: None. Lungs: No evidence of edema or pneumonia. Pleural: No significant pleural effusions or pneumothorax. Cardiac: The heart size is within normal limits. Mediastinum: Within normal limits. Bones: No acute fractures. Other: None IMPRESSION: No acute cardiopulmonary disease.
[2022-05-13 19:07] LABS: Absolute Lymphocytes (CBC) 2.4 K/uL (0.7-4.9); Hematocrit 39.6 % (39.6-49.0); Lymphocytes % 31.8 % (15.3-44.8); MCV 74.7 fL (80-100); MPV 7.2 fL (7.6-11.3); RBC Red Blood Cell Count 5.29 M/uL (4.33-5.43)
[2022-05-13] MEDS ORDERED: NA CHLORIDE 0.9% 1,000 ML ONE (19:08)
[2022-05-13 19:11] LABS: Protime INR 1.11
[2022-05-13 19:19] LABS: Potassium 3.6 mmol/L (3.5-5.1); Troponin High Sensitivity 11.1 pg/mL (<58.9)
[2022-05-13 19:48] LABS: SARS-COV-2 RT PCR NEGATIVE (NEGATIVE)
--- NOTE | 2022-05-13 20:24 | ER ---
Nurse's Notes [facility] Name: Holden Morris Age: 37 yrs Sex: Male : 1985 Arrival Date: 05/13/2022 Time: 17:52 Bed 19 Private MD: Diagnosis: Weakness;Cough Presentation: 05/13 17:59 Chief complaint: Patient states: Pt reports 2 syncopal episodes today approximately 1 kb3 hr [employer] with left-sided chest pain and headache. Pt reports similar symptoms 5 days ago and was evaluated in this ED. Pt reports ongoing chills and a feeling of "can't get warm." PT noted to be sweating in triage. Coronavirus screen: Vaccine status: Patient reports receiving the 2nd dose of the covid vaccine. Client denies travel out of the [place] in the last 14 days. Ebola Screen: Patient negative for fever greater than or equal to 101.5 degrees Fahrenheit, and additional compatible Ebola Virus Disease symptoms Patient denies exposure to infectious person. Patient denies travel to an Ebola-affected area in the 21 days before illness onset. Initial Sepsis Screen: Does the patient meet any 2 criteria? No. Patient's initial sepsis screen is negative. Does the patient have a suspected source of infection? No. Patient's initial sepsis screen is negative. Risk Assessment: Do you want to hurt yourself or someone else? Patient reports no desire to harm self or others. Onset of symptoms was May 13, 2022 at 17:00. 17:59 Method Of Arrival: Ambulatory kb3 17:59 Acuity: STONE 3 kb3 Triage Assessment: 18:02 General: Appears in no apparent distress. Behavior is calm, cooperative. Pain: kb3 Complains of pain in anterior aspect of left upper chest and left breast Pain radiates to left arm and left leg Pain currently is 10 out of 10 on a pain scale. Historical: - Allergies: 18:02 PENICILLINS; young; kb3 - PMHx: 18:02 Anxiety; Asthma; GERD; Hypertension; Migraines; kb3 - PSHx: 18:02 Cornea transplant L eye; kb3 - Immunization history:: Adult Immunizations up to date, Client reports receiving the 2nd dose of the Covid vaccine, Last tetanus immunization: up to date. - Social history:: Smoking status: Patient denies any tobacco usage or history of. - Family history:: not pertinent. - Hospitalizations: : No recent hospitalization is reported. Screenin:15 Abuse screen: Denies threats or abuse. Denies injuries from another. Nutritional ph screening: No deficits noted. Tuberculosis screening: No symptoms or risk factors identified. Fall Risk None identified. Assessment: 19:13 General: Appears in no apparent distress. comfortable, well groomed, Behavior is calm, ph cooperative, appropriate for age. Pain: Complains of pain in anterior aspect of left upper chest Pain radiates to left arm Pain began 1 hour ago. Neuro: Level of Consciousness is awake, alert, obeys commands, Oriented to person, place, time, situation, Speech is normal, Reports dizziness, a syncopal episode. Cardiovascular: Reports chest pain, diaphoresis, lightheadedness, syncope, Capillary refill < 3 seconds in bilateral fingers Patient's skin is warm and dry. Respiratory: Airway is patent Respiratory effort is even, unlabored. Derm: Skin is intact, is healthy with good turgor, Skin is pink, warm \\T\\ dry. Musculoskeletal: Circulation, motion, and sensation intact. Range of motion: intact in all extremities. 19:29 Reassessment: Patient and/or family updated on plan of care and expected duration. Pain ph level reassessed. Patient is alert, oriented x 3, equal unlabored respirations, skin warm/dry/pink. Pain: Complains of pain in anterior aspect of left upper chest Pain radiates to left arm. Neuro: Level of Consciousness is awake, alert, obeys commands, Oriented to person, place, time, situation, Reports headache in entire. Cardiovascular: Reports chest pain, lightheadedness, Capillary refill < 3 seconds Patient's skin is warm and dry. Rhythm is sinus rhythm. Respiratory: Airway is patent Trachea midline Respiratory effort is even, unlabored. GI: No signs and/or symptoms were reported involving the gastrointestinal system. Abdomen is flat, non-distended. : No signs and/or symptoms were reported regarding the genitourinary system. Musculoskeletal: Circulation, motion, and sensation intact. Range of motion: intact in all extremities. 20:40 Reassessment: Patient and/or family updated on plan of care and expected duration. Pain ph level reassessed. Patient is alert, oriented x 3, equal unlabored respirations, skin warm/dry/pink. awaiting for antibiotic infussion. Vital Signs: 17:59 BP 144 / 89; Pulse 93; Resp 20; Temp 99.4; Pulse Ox 97% ; Weight 113.4 kg; Height 5 ft. kb3 10 in. (177.80 cm); Pain 10/10; 19:31 BP 123 / 80; Pulse 83; Resp 16 S; Pulse Ox 100% on R/A; ph 17:59 Body Mass Index 35.87 (113.40 kg, 177.80 cm) kb3 ED Course: 17:52 Patient arrived in ED. rg4 18:02 Triage completed. kb3 18:02 Arm band placed on left wrist. kb3 18:03 Jose Ramon Tinajero MD is Attending Physician. rn 18:05 Marianela Gonzales RN is Primary Nurse. ph 18:51 XRAY Chest (1 view) In Process Unspecified. EDMS 19:03 Attending Physician role handed off by Jose Ramon Tinajero MD lorna 19:03 Aidan Carranza MD is Attending Physician. lorna 19:15 Patient has correct armband on for positive identification. Bed in low position. Call ph light in reach. Side rails up X 1. Client placed on continuous cardiac and pulse oximetry monitoring. NIBP monitoring applied. Door closed. Noise minimized. 19:15 Initial lab(s) drawn, by pa, sent to lab. COVID swab sent to lab. Flu and/or RSV swab ph sent to lab. Inserted saline lock: 20 gauge in left antecubital area, using aseptic technique. Blood collected. Patient maintains SpO2 saturation greater than 95% on room air. 20:32 Blood Culture Adult (2) Sent. ph 20:32 Lactate Sent. ph 21:06 IV discontinued, intact, bleeding controlled, No redness/swelling at site. Pressure ph dressing applied. 21:07 No provider procedures requiring assistance completed. ph Administered Medications: 19:28 Drug: NS 0.9% 1000 ml Route: IV; Rate: 1000 ml; Site: left antecubital; ph 21:07 Follow up: Response: No adverse reaction; IV Status: Completed infusion; IV Intake: ph 1000ml 20:45 Drug: Rocephin (cefTRIAXone) 1 grams Route: IV; Rate: per protocol; Site: left ph antecubital; 21:05 Follow up: Response: No adverse reaction; IV Status: Completed infusion; IV Intake: 50mlph Medication: 19:15 VIS not applicable for this client. ph Intake: 21:05 IV: 50ml; Total: 50ml. ph 21:07 IV: 1000ml; Total: 1050ml. ph Outcome: 20:23 Discharge ordered by . lorna 21: Discharged to home ambulatory. ph 21: Condition: stable 21:07 Discharge instructions given to patient, Instructed on discharge instructions, follow up and referral plans. medication usage, Demonstrated understanding of instructions, follow-up care, medications, Prescriptions given X 1. 21:08 Patient left the ED. ph Signatures: Dispatcher [employer] EDMS Aidan Carranza MD MD cha Nieto, Roman, MD MD rn Hall, Patricia, RN RN ph Garcia, Rubi rg4 Iris Marshall RN RN kb3
--- NOTE | 2022-05-13 20:24 | EDPHYS ---
Physician Documentation [facility] Name: Holden Morris Age: 37 yrs Sex: Male : 1985 Arrival Date: 05/13/2022 Time: 17:52 Bed 19 Private MD: EDUARDO Physician Aidan Carranza HPI: 05/13 18:14 This 37 yrs old Black Male presents to ER via Ambulatory with complaints of syncope. rn 18:14 The patient has experienced syncope. Onset: The symptoms/episode began/occurred 5 rn day(s) ago. Duration: The patient has had multiple episodes, that last an unknown period of time. Associated injury: The patient did not suffer any apparent associated injury. Current symptoms: Currently, the patient is not experiencing any symptoms. The patient has experienced similar episodes in the past. The patient has been recently seen at the [facility] Emergency Department. Pt reports multiple episodes of syncope over last week. Seen here 5 days ago with neg workup. Reports subjective fever, chills, cough, chest pain, diarrhea, and passed out 2 times today. No blood in stool. . Historical: - Allergies: 18:02 PENICILLINS; young; kb3 - PMHx: 18:02 Anxiety; Asthma; GERD; Hypertension; Migraines; kb3 - PSHx: 18:02 Cornea transplant L eye; kb3 - Immunization history:: Adult Immunizations up to date, Client reports receiving the 2nd dose of the Covid vaccine, Last tetanus immunization: up to date. - Social history:: Smoking status: Patient denies any tobacco usage or history of. - Family history:: not pertinent. - Hospitalizations: : No recent hospitalization is reported. ROS: 18:14 Constitutional: + subjective fever and chills Eyes: Negative for injury, pain, redness, rn and discharge, ENT: Negative for injury, pain, and discharge, Neck: Negative for injury, pain, and swelling, Cardiovascular: Negative for palpitations, and edema, Respiratory: Negative for wheezing, and pleuritic chest pain, Abdomen/GI: Negative for abdominal pain, vomiting, and constipation, Back: Negative for injury and pain, MS/Extremity: Negative for injury and deformity, Skin: Negative for injury, rash, and discoloration, Neuro: Negative for numbness, tingling, and seizure. Exam: 18:14 Constitutional: This is a well developed, well nourished patient who is awake, alert, rn and in no acute distress. Legs crossed and using phone. Head/Face: Normocephalic, atraumatic. Eyes: Pupils equal round and reactive to light, extra-ocular motions intact. Periorbital areas with no swelling, redness, or edema. ENT: dry MM Neck: Trachea midline, no thyromegaly or masses palpated, and no cervical lymphadenopathy. Supple, full range of motion without nuchal rigidity, or vertebral point tenderness. No Meningismus. Cardiovascular: Regular rate and rhythm. No pulse deficits. Respiratory: No increased work of breathing, no retractions or nasal flaring. Abdomen/GI: Soft, non-tender Skin: Warm, dry MS/ Extremity: Pulses equal, no cyanosis. Neuro: Awake and alert, GCS 15, oriented to person, place, time, and situation. Cranial nerves II-XII grossly intact. Motor strength 5/5 in all extremities. Sensory grossly intact. Cerebellar exam normal. 20:21 ECG was reviewed by the Attending Physician. lorna 20:22 Musculoskeletal/extremity: DVT Exam: No signs of deep vein thrombosis. no pain, no lorna swelling, no tenderness, negative Homans' sign noted on exam, no appreciated bluish discoloration, no erythema, no increased warmth. Vital Signs: 17:59 BP 144 / 89; Pulse 93; Resp 20; Temp 99.4; Pulse Ox 97% ; Weight 113.4 kg; Height 5 ft. kb3 10 in. (177.80 cm); Pain 10/10; 19:31 BP 123 / 80; Pulse 83; Resp 16 S; Pulse Ox 100% on R/A; ph 17:59 Body Mass Index 35.87 (113.40 kg, 177.80 cm) kb3 MDM: 18:04 Patient medically screened. rn 20:22 Differential Diagnosis: cardiac arrhythmia, emotional response, idiopathic syncope, lorna seizure, vasovagal episode. Data reviewed: vital signs, nurses notes, lab test result(s), EKG, radiologic studies, plain films. Data interpreted: speech coach: rate is 83 beats/min, rhythm is regular, Pulse oximetry: on room air. Test interpretation: by ED physician or midlevel provider: ECG, plain radiologic studies. Counseling: I had a detailed discussion with the patient and/or guardian regarding: the historical points, exam findings, and any diagnostic results supporting the discharge/admit diagnosis, lab results, radiology results, the need for outpatient follow up, for definitive care, a family practitioner. 05/13 18:13 Order name: Basic Metabolic Panel; Complete Time: 20:00 rn 05/13 18:13 Order name: CBC with Diff; Complete Time: 20:00 rn 05/13 18:13 Order name: CPK; Complete Time: 20:00 rn 05/13 18:13 Order name: Magnesium; Complete Time: 20:00 rn 05/13 18:13 Order name: Protime (+inr); Complete Time: 20:00 rn 05/13 18:13 Order name: Ptt, Activated; Complete Time: 20:00 rn 05/13 18:13 Order name: Troponin High Sensitivity; Complete Time: 20:00 rn 05/13 18:13 Order name: EKG; Complete Time: 18:14 rn 05/13 18:13 Order name: COVID-19/FLU A+B/RSV (Document "Date of Onset" if Symptomatic); Complete rn Time: 20:05/13 18:13 Order name: XRAY Chest (1 view); Complete Time: 18:58 rn 05/13 19:12 Order name: Blood Culture Adult (2) lorna 05/13 19:12 Order name: Lactate lorna 05/13 18:13 Order name: Cardiac monitoring; Complete Time: 19:28 rn 05/13 18:13 Order name: EKG - Nurse/Tech; Complete Time: 19:28 rn 05/13 18:13 Order name: IV Saline Lock; Complete Time: 18:50 rn 05/13 18:13 Order name: Labs collected and sent; Complete Time: 18:50 rn 05/13 18:13 Order name: O2 Per Protocol; Complete Time: 18:50 rn 05/13 18:13 Order name: O2 Sat Monitoring; Complete Time: 18:50 rn EC:21 Rate is 77 beats/min. Rhythm is regular. QRS [place] is Normal. [place] interval is normal. QT lorna interval is normal. No Q waves. T waves are Normal. No ST changes noted. Clinical impression: NSR w/ Non-specific ST/T Changes and No evidence of ischemia. Interpreted by me. Reviewed by me. Administered Medications: 19:28 Drug: NS 0.9% 1000 ml Route: IV; Rate: 1000 ml; Site: left antecubital; ph 21:07 Follow up: Response: No adverse reaction; IV Status: Completed infusion; IV Intake: ph 1000ml 20:45 Drug: Rocephin (cefTRIAXone) 1 grams Route: IV; Rate: per protocol; Site: left ph antecubital; 21:05 Follow up: Response: No adverse reaction; IV Status: Completed infusion; IV Intake: 50mlph Disposition Summary: 05/13/22 20:23 Discharge Ordered Location: Home [facility] Problem: new lorna Symptoms: have improved lorna Condition: Stable lorna Diagnosis - Weakness lorna - Cough lorna Followup: lorna - With: Private Physician - When: 2 - 3 days - Reason: Recheck today's complaints, Continuance of care, Re-evaluation by your physician Discharge Instructions: - Discharge Summary Sheet lorna - Weakness lorna - Cough, Adult, [id number] lorna - Weakness, [id number] lorna - Cough, Adult [facility] Forms: - Medication Reconciliation Form [facility] - Thank You Letter [facility] - Antibiotic Education [facility] - Prescription Opioid Use [facility] Prescriptions: - Zithromax Z-Delfino 250 mg Oral Tablet - take 1 tablet by ORAL route as directed for 5 days Day 1 - take two (2) tablets lorna one time. Day 2, 3, 4 , 5 take one (1) tablet once daily.; 6 tablet; Refills: 0, Product Selection Permitted Signatures: Dispatcher [employer] Aidan Goodman MD MD cha Nieto, Roman, MD MD rn Hall, Patricia, RN RN ph Bradberry, Kelly, RN RN kb3
[2022-05-13] MEDS ORDERED: NA CHLORIDE 0.9% 50 ML IV ONE (20:36)
[2022-05-13] MEDS ORDERED: CEFTRIAXONE 1000 MG/VIAL ONE (20:36)
[2022-05-13] MEDS ORDERED: NA CHLORIDE 0.9% 100 ML IV ONE (21:33)
[2022-05-13] MEDS ORDERED: PIPERACIL/TAZO 3.375 GM VIAL IV ONE (21:33)
[2022-05-13 22:01] VITALS: TEMP 99.4
[2022-05-13 22:04] VITALS: BP 123/80; O2SAT 100
--- NOTE | 2022-05-14 15:57 | EKG ---
Test Date: 2022-05-13 Test Time: 19:23:45 Spring Maker: SURESH MEASUREMENT RESULTS: Intervals: Rate: 77 MO: 146 QRSD: 84 QT: 356 QTc: 402 [place]: P: 81 MO: 146 QRS: 48 T: 50 INTERPRETIVE STATEMENTS: Normal sinus rhythm Normal ECG Compared to ECG 05/08/2022 20:23:32 Sinus arrhythmia no longer present Electronically Signed On 05-14-22 15:57:03 TOE PUNCHER by Silvano Victoria
== END 2022-05-13 21:08 | disposition home or self-care (01) ==
LOC: ER 17:49
DX: R53.1 Weakness (principal); R05.9 Cough, unspecified; I10 Essential (primary) hypertension; K21.9 Gastro-esophageal reflux disease without esophagitis; J45.909 Unspecified asthma, uncomplicated; F41.9 Anxiety disorder, unspecified; Z20.822 Contact with and (suspected) exposure to COVID-19
CPT/HCPCS: 0241U; 36415; 71045; 80048; 82550; 83605; 83735; 84484; 85025; 85610; 85730; 87040; 93005; 96361; 96365; 99285; J2543; J7030

== ENCOUNTER 2022-05-29 18:31 | Emergency (ER) | payer SELFPAY ==
[2022-05-29] MEDS ORDERED: NA CHLORIDE 0.9% 100 ML IV ONE (20:03)
[2022-05-29] MEDS ORDERED: METHOCARBAMOL 1,000 MG/10 ML VIAL IV ONE (20:03)
[2022-05-29] MEDS ORDERED: Ringers Lactate 2,000 ML IV ONE (20:03)
[2022-05-29] MEDS ORDERED: KETOROLAC 30 MG/ML INJ ONE (20:03)
--- NOTE | 2022-05-29 21:51 | RAD REPORT ---
EXAM DESCRIPTION: RAD - Chest Single View - 05/29/2022 8:25 pm CLINICAL HISTORY: CHEST PAIN COMPARISON: Chest Single View dated 05/13/2022; Chest Single View dated 05/08/2022; Chest Single View dated 11/09/2021; Chest Single View dated 11/07/2021 FINDINGS: Lines: None. Lungs: No evidence of edema or pneumonia. Pleural: No significant pleural effusions or pneumothorax. Cardiac: The heart size is within normal limits. Mediastinum: Within normal limits. Bones: No acute fractures. Other: None IMPRESSION: No acute cardiopulmonary disease.
--- NOTE | 2022-05-29 21:58 | EDPHYS ---
Physician Documentation [facility] Name: Holden Morris Age: 37 yrs Sex: Male : 1985 Arrival Date: 05/29/2022 Time: 18:35 Bed 9 Private MD: ED Physician João Barillas HPI: 05/29 19:51 This 37 yrs old Black Male presents to ER via Ambulatory with complaints of General rt Weakness, Muscle pain, Chest Pain. 19:51 The patient or guardian reports chest pain that is located primarily in the Left-sided. rt The pain does not radiate. Associated signs and symptoms: The patient has no apparent associated signs or symptoms. The chest pain is described as aching. Duration: The patient or guardian reports a single episode, that is still ongoing. Modifying factors: the symptoms are aggravated by movement. Patient presents to the ED with a left-sided body pain. He has had multiple episodes of this previously. He has had negative work-ups previously. This occurred about 3 hours prior to arrival, no other reported aggravating alleviating factors. Symptoms are moderate in severity.. Historical: - Allergies: 19:03 PENICILLINS; young; kb3 - PMHx: 19:03 Migraines; Hypertension; Resolved; Anxiety; Asthma; GERD; kb3 - PSHx: 19:03 Cornea transplant L eye; kb3 - Immunization history:: Adult Immunizations up to date, Client reports receiving the 2nd dose of the Covid vaccine, Last tetanus immunization: unknown. - Social history:: Smoking status: Patient denies any tobacco usage or history of. - Family history:: not pertinent. ROS: 19:51 Constitutional: Negative for fever, chills, and weight loss, Eyes: Negative for injury, rt pain, redness, and discharge, Respiratory: Negative for shortness of breath, cough, wheezing, and pleuritic chest pain, Abdomen/GI: Negative for abdominal pain, nausea, vomiting, diarrhea, and constipation, Back: Negative for injury and pain, MS/Extremity: Negative for injury and deformity, Skin: Negative for injury, rash, and discoloration, Neuro: Negative for headache, weakness, numbness, tingling, and seizure, Psych: Negative for depression, anxiety, suicide ideation, homicidal ideation, and hallucinations. 19:51 Cardiovascular: Positive for chest pain, Negative for edema. Exam: 19:51 Constitutional: This is a well developed, well nourished patient who is awake, alert, rt and in no acute distress. Head/Face: Normocephalic, atraumatic. Eyes: Pupils equal round and reactive to light, extra-ocular motions intact. Lids and lashes normal. Conjunctiva and sclera are non-icteric and not injected. Cornea within normal limits. Periorbital areas with no swelling, redness, or edema. ENT: Nares patent. No nasal discharge, no septal abnormalities noted. Tympanic membranes are normal and external auditory canals are clear. Oropharynx with no redness, swelling, or masses, exudates, or evidence of obstruction, uvula midline. Mucous membranes moist. Neck: Trachea midline, no thyromegaly or masses palpated, and no cervical lymphadenopathy. Supple, full range of motion without nuchal rigidity, or vertebral point tenderness. No Meningismus. Cardiovascular: Regular rate and rhythm with a normal S1 and S2. No gallops, murmurs, or rubs. Normal PMI, no JVD. No pulse deficits. Respiratory: Lungs have equal breath sounds bilaterally, clear to auscultation and percussion. No rales, rhonchi or wheezes noted. No increased work of breathing, no retractions or nasal flaring. Abdomen/GI: Soft, non-tender, with normal bowel sounds. No distension or tympany. No guarding or rebound. No evidence of tenderness throughout. Skin: Warm, dry with normal turgor. Normal color with no rashes, no lesions, and no evidence of cellulitis. MS/ Extremity: Pulses equal, no cyanosis. Neurovascular intact. Full, normal range of motion. Neuro: Awake and alert, GCS 15, oriented to person, place, time, and situation. Cranial nerves II-XII grossly intact. Motor strength 5/5 in all extremities. Sensory grossly intact. Cerebellar exam normal. Normal gait. Psych: Awake, alert, with orientation to person, place and time. Behavior, mood, and affect are within normal limits. 19:51 Chest/axilla: No deformities, palpation of her anterior chest wall reproduces chest pain.. 20:10 ECG was reviewed by the Attending Physician. rt Vital Signs: 19:02 BP 133 / 66; Pulse 78; Resp 20; Temp 98.0; Pulse Ox 96% ; Weight 97.52 kg; Height 5 ft. kb3 10 in. (177.80 cm); Pain 9/10; 20:27 BP 103 / 54; Pulse 75; Resp 19; Pulse Ox 99% ; rv1 21:34 BP 110 / 67; Pulse 71; Resp 20; Temp 98.2; Pulse Ox 100% ; rv1 22:04 BP 119 / 66; Pulse 80; Resp 13; Temp 98.2; Pulse Ox 100% ; rv1 19:02 Body Mass Index 30.85 (97.52 kg, 177.80 cm) kb3 MDM: 19:45 Patient medically screened. rt 21:58 Differential diagnosis: acute myocardial infarction, acute pericarditis, chest wall rt pain, pneumonia, pneumothorax. HEART Score: History: Slightly Suspicious (0), ECG: Normal (0), Age: < or = 45 years (0), Risk Factors: No Risk Factors Known (0), Troponin: < or = 1 x Normal Limit (0), Total Score = 0. Data reviewed: vital signs, nurses notes, old medical records, lab test result(s), EKG, radiologic studies. ED course: Presents to the ED with left-sided pain. Given chronicity of symptoms, 1 set of enzymes is sufficient to rule out an acute coronary syndrome. He does not have any EKG changes, labs are benign. No evidence for rhabdo. I suspect chest wall pain. He is PE RC negative, does not require further work-up for pulmonary embolism. Stable for outpatient care, return precautions discussed. 05/29 19:07 Order name: BMP; Complete Time: 20:48 kb3 05/29 19:09 Order name: Troponin High Sensitivity; Complete Time: 20:48 [facility] 05/29 19:09 Order name: Chest Single View XRAY; Complete Time: 21:54 [facility] 05/29 19:49 Order name: CPK; Complete Time: 20:48 rt 05/29 19:09 Order name: Saline Lock; Complete Time: 19:59 [facility] 05/29 19:49 Order name: EKG; Complete Time: 20:07 rt 05/29 19:49 Order name: EKG - Nurse/Tech; Complete Time: 20:09 rt EC:10 Rate is 65 beats/min. Rhythm is regular, Normal Sinus Rhythm with No ectopy. QRS [place] rt is Normal. [place] interval is normal. QRS interval is normal. QT interval is normal. No Q waves. T waves are Normal. No ST changes noted. Clinical impression: Normal ECG. Interpreted by me. Administered Medications: 20:17 Drug: Lactated Ringers Solution 2000 ml Route: IV; Rate: 2000 bolus; Site: left 3 antecubital; 22:18 Follow up: Response: No adverse reaction; IV Status: Completed infusion; IV Intake: kd3 1100ml 20:17 Drug: Robaxin (methocarbamol) 1 grams Route: IVPB; Infused Over: 1 hrs; Site: left kd3 antecubital; 22:18 Follow up: IV Status: Completed infusion; IV Intake: 100ml kd3 20:17 Drug: Ketorolac 30 mg Route: IVP; Site: left antecubital; kd3 22:18 Follow up: Response: No adverse reaction; Pain is decreased kd3 Disposition Summary: 05/29/22 21:57 Discharge Ordered Location: Home rt Problem: an ongoing problem rt Symptoms: have improved rt Condition: Stable rt Diagnosis - Chest pain, unspecified rt Followup: rt - With: Private Physician - When: 2 - 3 days - Reason: Discharge Instructions: - Discharge Summary Sheet rt - Chest Wall Pain rt Forms: - Medication Reconciliation Form rt - Thank You Letter rt - Antibiotic Education rt - Prescription Opioid Use rt Prescriptions: - Ibuprofen 800 mg Oral Tablet - take 1 tablet by ORAL route every 12 hours As needed take with food; 20 tablet; rt Refills: 0, Product Selection Permitted Signatures: Dispatcher [employer] Manjit Flores PA PA jmm Doucette, Kyli RN RN kd3 Iris Marshall, NICOL RN kb3 João Barillas MD MD rt
--- NOTE | 2022-05-29 21:58 | ER ---
Nurse's Notes [facility] Name: Holden Morris Age: 37 yrs Sex: Male : 1985 Arrival Date: 05/29/2022 Time: 18:35 Bed 9 Private MD: Diagnosis: Chest pain, unspecified Presentation: 05/29 19:02 Chief complaint: Patient states: Generalized body pain, muscle spasms all over body x2 kb3 hours. Coronavirus screen: Vaccine status: Patient reports receiving the 2nd dose of the covid vaccine. Client denies travel out of the [place] in the last 14 days. Ebola Screen: Patient negative for fever greater than or equal to 101.5 degrees Fahrenheit, and additional compatible Ebola Virus Disease symptoms Patient denies exposure to infectious person. Patient denies travel to an Ebola-affected area in the 21 days before illness onset. Initial Sepsis Screen: Does the patient meet any 2 criteria? No. Patient's initial sepsis screen is negative. Does the patient have a suspected source of infection? No. Patient's initial sepsis screen is negative. Risk Assessment: Do you want to hurt yourself or someone else? Patient reports no desire to harm self or others. Onset of symptoms was May 29, 2022 at 17:00. 19:02 Method Of Arrival: Ambulatory kb3 19:02 Acuity: STONE 3 kb3 Triage Assessment: 19:03 General: Appears in no apparent distress. Behavior is calm, cooperative. Pain: kb3 Complains of pain in chest, right arm, right hand, left arm, left hand, right leg, right foot, left leg, left foot and posterior chest Pain does not radiate. Pain currently is 9 out of 10 on a pain scale. Quality of pain is described as aching. Cardiovascular: Rhythm is regular. Historical: - Allergies: 19:03 PENICILLINS; young; kb3 - PMHx: 19:03 Migraines; Hypertension; Resolved; Anxiety; Asthma; GERD; kb3 - PSHx: 19:03 Cornea transplant L eye; kb3 - Immunization history:: Adult Immunizations up to date, Client reports receiving the 2nd dose of the Covid vaccine, Last tetanus immunization: unknown. - Social history:: Smoking status: Patient denies any tobacco usage or history of. - Family history:: not pertinent. Screenin:31 Abuse screen: Denies threats or abuse. Denies injuries from another. Nutritional kd3 screening: No deficits noted. Tuberculosis screening: No symptoms or risk factors identified. Fall Risk None identified. IV access (20 points). Assessment: 21:32 Pain: Pain began gradually. kd3 Vital Signs: 19:02 BP 133 / 66; Pulse 78; Resp 20; Temp 98.0; Pulse Ox 96% ; Weight 97.52 kg; Height 5 ft. kb3 10 in. (177.80 cm); Pain 9/10; 20:27 BP 103 / 54; Pulse 75; Resp 19; Pulse Ox 99% ; rv1 21:34 BP 110 / 67; Pulse 71; Resp 20; Temp 98.2; Pulse Ox 100% ; rv1 22:04 BP 119 / 66; Pulse 80; Resp 13; Temp 98.2; Pulse Ox 100% ; rv1 19:02 Body Mass Index 30.85 (97.52 kg, 177.80 cm) kb3 ED Course: 18:35 Patient arrived in ED. jj6 19:03 Triage completed. kb3 19:03 Arm band placed on right wrist. kb3 19:41 João Barillas MD is Attending Physician. rt 19:47 Shae Vega, NICOL is Primary Nurse. kd3 19:59 Troponin High Sensitivity Sent. rv1 19:59 BMP Sent. rv1 19:59 Inserted saline lock: 20 gauge in left antecubital area, using aseptic technique. Blood rv1 collected. 20:27 Chest Single View XRAY In Process Unspecified. EDMS 21:31 No provider procedures requiring assistance completed. Patient maintains SpO2 kd3 saturation greater than 95% on room air. 21:32 Patient has correct armband on for positive identification. Bed in low position. Call kd3 light in reach. Client placed on continuous cardiac and pulse oximetry monitoring. NIBP monitoring applied. 22:18 IV discontinued, intact, bleeding controlled, No redness/swelling at site. Pressure kd3 dressing applied. Administered Medications: 20:17 Drug: Lactated Ringers Solution 2000 ml Route: IV; Rate: 2000 bolus; Site: left kd3 antecubital; 22:18 Follow up: Response: No adverse reaction; IV Status: Completed infusion; IV Intake: kd3 1100ml 20:17 Drug: Robaxin (methocarbamol) 1 grams Route: IVPB; Infused Over: 1 hrs; Site: left kd3 antecubital; 22:18 Follow up: IV Status: Completed infusion; IV Intake: 100ml kd3 20:17 Drug: Ketorolac 30 mg Route: IVP; Site: left antecubital; kd3 22:18 Follow up: Response: No adverse reaction; Pain is decreased kd3 Medication: 21:32 VIS not applicable for this client. kd3 Intake: 22:18 IV: 100ml; Total: 100ml. kd3 22:18 IV: 1100ml; Total: 1200ml. kd3 Outcome: 21:57 Discharge ordered by . rt 22:17 Discharged to home ambulatory. kd3 22:17 Condition: stable 22:17 Discharge instructions given to patient, Instructed on discharge instructions, follow up and referral plans. medication usage, Demonstrated understanding of instructions, follow-up care, medications, Prescriptions given X 1. 22:18 Patient left the ED. kd3 Signatures: Dispatcher [employer] EDMS Priscila Argueta [id number] Shae Vega RN RN kd3 Iris Marshall RN RN kb3 João Barillas MD MD rt Zita Tubbs rv1
[2022-05-29 22:24] VITALS: TEMP 98.2; O2SAT 100
[2022-05-29 22:26] VITALS: BP 119/66
--- NOTE | 2022-05-31 12:52 | EKG ---
Test Date: 2022-05-29 Test Time: 20:05:31 Manager Location: RV MEASUREMENT RESULTS: Intervals: Rate: 65 [place]: 140 QRSD: 82 QT: 360 QTc: 374 [place]: P: 51 [place]: 140 QRS: 22 T: 13 INTERPRETIVE STATEMENTS: Normal sinus rhythm Normal ECG Compared to ECG 05/13/2022 19:23:45 No significant changes Electronically Signed On 05-31-22 12:49:47 BLANKING MACHINE OPERATOR by Silvano Victoria
== END 2022-05-29 22:18 | disposition home or self-care (01) ==
LOC: ER 18:31
DX: R07.89 Other chest pain (principal)
CPT/HCPCS: 36415; 71045; 80048; 82550; 84484; 93005; 96365; 96366; 96375; 99284; J2800; J7120

== ENCOUNTER 2022-09-03 04:59 | Emergency (ER) | payer SELFPAY ==
[2022-09-03] MEDS ORDERED: MAGNES/ALUMIN/SIMET 30ML UCUP ONE (05:46)
[2022-09-03] MEDS ORDERED: METOCLOPRAMIDE 10 MG/2mL INJ ONE (05:46)
[2022-09-03] MEDS ORDERED: DIPHENHYDRAMINE 50 MG/ML VIAL ONE (05:46)
[2022-09-03] MEDS ORDERED: NA CHLORIDE 0.9% 1,000 ML ONE (05:47)
[2022-09-03] MEDS ORDERED: PANTOPRAZOLE 40 MG INJ ONE (05:47)
[2022-09-03] MEDS ORDERED: LIDOCAINE VISCOUS 2% SOLN 15 ML UDC ONE (05:47)
[2022-09-03 06:15] LABS: Absolute Lymphocytes (CBC) 2.2 K/uL (0.7-4.9); Hematocrit 35.9 % (39.6-49.0); Lymphocytes % 39.9 % (15.3-44.8); MCV 74.7 fL (80-100); MPV 7.1 fL (7.6-11.3); RBC Red Blood Cell Count 4.81 M/uL (4.33-5.43)
[2022-09-03 06:34] LABS: Urine Blood Negative (Negative); Urine Glucose Negative (Negative); Urine Protein Trace (Negative); Urine Specific Gravity >=1.030 (1.005-1.030); Urine pH 6.5 (5.0-7.0)
[2022-09-03 06:35] LABS: Albumin 3.4 g/dL (3.4-5.0); Bilirubin Total 0.3 mg/dL (0.2-1.0); Protein, Total 6.9 g/dL (6.4-8.2)
[2022-09-03 07:25] LABS: Urine Bacteria None Seen /HPF (<20); Urine Mucus Slight /HPF (None Seen)
--- NOTE | 2022-09-03 07:52 | RAD REPORT ---
EXAM DESCRIPTION: CTAbdomen Pelvis W Contrast - 09/03/2022 6:51 am CLINICAL HISTORY: ABD PAIN AND VOMITING COMPARISON: <Comparisons> TECHNIQUE: CT of the abdomen and pelvis was performed with IV contrast. All CT scans are performed using dose optimization technique as appropriate and may include automated exposure control or mA/KV adjustment according to patient size. FINDINGS: Lower chest: No acute abnormality. Liver: No acute abnormality or suspicious lesions. Biliary: No biliary ductal dilatation. Stomach: No significant focal abnormality. Duodenum: No significant focal abnormality. Pancreas: No significant abnormality. Spleen: No significant abnormality. Adrenal: No suspicious lesions. Kidney/ureter: No hydronephrosis. No renal calculi. Too small to characterize and/or benign appearing renal lesions are noted. Retroperitoneum: No retroperitoneal adenopathy. Vascular: No aneurysm. Bowel: No significant focal abnormality. Normal appendix. Peritoneum: No ascites or free air. Reactive sized inguinal lymph nodes. Bladder: Grossly unremarkable. Reproductive: No adnexal masses. Bones: No acute fracture. Other: n/a IMPRESSION: No acute intra-abdominal or pelvic finding.
--- NOTE | 2022-09-03 08:10 | ER ---
Nurse's Notes [facility] Name: Holden Morris Age: 37 yrs Sex: Male : 1985 Arrival Date: 09/03/2022 Time: 05:10 Bed 19 Private MD: Diagnosis: Vomiting;Abdominal pain, Generalized;Anemia, unspecified Presentation: 09/03 05:10 Chief complaint: EMS states: 37 year old male reports vomiting red fluid that look like ha1 blood. Ebola Screen: No symptoms or risks identified at this time. 05:10 Method Of Arrival: EMS: [facility] ha1 05:10 Coronavirus screen: Vaccine status: Patient reports receiving the 2nd dose of the covid ha1 vaccine. [employer]. Initial Sepsis Screen: Does the patient meet any 2 criteria? No. Patient's initial sepsis screen is negative. Does the patient have a suspected source of infection? No. Patient's initial sepsis screen is negative. Risk Assessment: Do you want to hurt yourself or someone else? Patient reports no desire to harm self or others. Onset of symptoms was September 03, 2022. 05:10 Acuity: STONE 3 ha1 Triage Assessment: 05:10 General: Appears comfortable, Behavior is calm, cooperative. Pain: Complains of pain in ha1 abdomen Pain does not radiate. Pain currently is 6 out of 10 on a pain scale. EENT: No signs and/or symptoms were reported regarding the EENT system. Neuro: Level of Consciousness is awake, alert, obeys commands, Oriented to person, place, time, situation. Cardiovascular: Capillary refill Patient's skin is warm and dry. Respiratory: Airway is patent Respiratory effort is even, unlabored, Respiratory pattern is regular, symmetrical. GI: Abdomen is non-distended, obese, Bowel sounds present X 4 quads. Abd is soft and non tender X 4 quads. Reports red vomit. : No signs and/or symptoms were reported regarding the genitourinary system. Derm: No signs and/or symptoms reported regarding the dermatologic system. Skin is moist, Skin is normal. Musculoskeletal: Circulation, motion, and sensation intact. Range of motion: intact in all extremities. Historical: - Allergies: 05:10 PENICILLINS; young; ha1 - Home Meds: 05:10 None [Active]; ha1 - PMHx: 05:10 Anxiety; Asthma; GERD; Hypertension; Resolved; Migraines; ha1 - PSHx: 05:10 Cornea transplant L eye; ha1 - Immunization history:: Adult Immunizations up to date. - Social history:: Smoking status: Patient denies any tobacco usage or history of. - Family history:: not pertinent. Screenin:10 Abuse screen: Denies threats or abuse. Denies injuries from another. Nutritional ha1 screening: No deficits noted. Tuberculosis screening: No symptoms or risk factors identified. 07:50 [facility] ED Fall Risk Assessment (Adult) History of falling in the last 3 months, ko1 including since admission No falls in past 3 months (0 pts) Confusion or Disorientation No (0 pts) Intoxicated or Sedated No (0 pts) Impaired Gait No (0 pts) Mobility Assist Device Used No (0 pt) Altered Elimination No (0 pt) Score/Fall Risk Level 0 - 2 = Low Risk Oriented to surroundings, Maintained a safe environment, Educated pt \T\ family on fall prevention, incl call for assistance when getting out of bed, Assessed \T\ reinforced patient's understanding of fall precautions, Provided non-skid footwear, Hourly rounding (assess needs \T\ fall precautionary measures) done, Used ambulatory aids as needed (educated on \T\ assisted with), Used gait belt as appropriate. Assessment: 05:10 Reassessment: see triage assessment. ha1 06:10 Reassessment: Patient and/or family updated on plan of care and expected duration. Pain ha1 level reassessed. Patient is alert, oriented x 3, equal unlabored respirations, skin warm/dry/pink. 07:22 Reassessment: Patient appears in no apparent distress at this time. No changes from ko1 previously documented assessment. Patient and/or family updated on plan of care and expected duration. Pain level reassessed. Patient is alert, oriented x 3, equal unlabored respirations, skin warm/dry/pink. Patient states feeling better. Vital Signs: 05:10 BP 143 / 67; Pulse 74; Resp 19 S; Temp 97.9; Pulse Ox 99% on R/A; Weight 102.06 kg; ha1 Height 5 ft. 10 in. (177.80 cm); Pain 6/10; 06:10 BP 137 / 71; Pulse 87; Resp 18 S; Pulse Ox 98% on R/A; ha1 07:22 BP 130 / 67; Pulse 66; Resp 18; Pulse Ox 97% ; ko1 05:10 Body Mass Index 32.28 (102.06 kg, 177.80 cm) ha1 ED Course: 05:10 Patient arrived in ED. wm 05:10 Arm band placed on right wrist. ha1 05:10 Patient has correct armband on for positive identification. Placed in gown. Bed in low ha1 position. Call light in reach. Side rails up X 1. 05:11 João Barillas MD is Attending Physician. rt 05:22 Monica Elliott, NICOL is Primary Nurse. ha1 05:33 Triage completed. ha1 06:09 Inserted saline lock: 20 gauge in left antecubital area, using aseptic technique. Blood oe collected. 06:25 Troponin High Sensitivity Sent. ha1 06:25 CMP Sent. ha1 06:25 CBC with Diff Sent. ha1 07:11 Attending Physician role handed off by João Barillas MD ms3 07:11 Jose Francisco Wheeler DO is Attending Physician. ms3 07:19 Urine Microscopic Only Sent. ko1 07:50 Client placed on continuous cardiac and pulse oximetry monitoring. NIBP monitoring ko1 applied. razor sharpener on. 07:50 No provider procedures requiring assistance completed. ko1 08:09 John Abbott MD is Referral Physician. ms3 08:18 IV discontinued, intact, bleeding controlled, No redness/swelling at site. Pressure ko1 dressing applied. Administered Medications: 06:00 Drug: GI Cocktail without - (Maalox Suspension 30 ml, Lidocaine Liquid 2 % 15 ha1 ml) Route: PO; 06:00 Drug: NS 0.9% 1000 ml Route: IV; Rate: 1 bolus; Site: left antecubital; ha1 06:01 Drug: Benadryl (diphenhydrAMINE) 25 mg Route: IVP; Site: left antecubital; ha1 06:04 Drug: Reglan (metoCLOPramide) 10 mg Route: IVP; Site: left antecubital; ha1 06:07 Drug: ProTONIX (pantoprazole) 40 mg Route: IVP; Site: left antecubital; ha1 Medication: 07:50 VIS not applicable for this client. ko1 Outcome: 08:10 Discharge ordered by . ms3 08:18 Discharged to home ambulatory. ko1 08:18 Condition: stable 08:18 Discharge instructions given to patient, Instructed on discharge instructions, follow up and referral plans. medication usage, Demonstrated understanding of instructions, follow-up care, medications, Prescriptions given X 1. 08:21 Patient left the ED. ko1 Signatures: Chavez Hair Marcus, DO DO ms3 [place] Heidy, RN RN ha1 Ginger Sanz, RN RN ko1 João Barillas MD MD rt
--- NOTE | 2022-09-03 08:10 | EDPHYS ---
Physician Documentation [facility] Name: Holden Morris Age: 37 yrs Sex: Male : 1985 Arrival Date: 09/03/2022 Time: 05:10 Bed 19 Private MD: ED Physician Jose Francisco Wheeler HPI: 09/03 05:47 This 37 yrs old Black Male presents to ER via EMS with complaints of Nausea, vomiting, rt diarrhea. 05:47 The patient presents to the emergency department with nausea, vomiting, diarrhea. rt Onset: The symptoms/episode began/occurred last night. Patient presents to the ED with nausea, vomiting, diarrhea. The patient states that he vomited some red liquid that he thought might of been blood. He also states that he had brownish-red stools. He states that he had an orangey red color to his urine as well. He reports some mild generalized abdominal pain. Patient states he was not feeling well yesterday, ate fried fish overnight, woke up at about 2 AM with nausea and vomiting. He denies other acute complaints at this time, symptoms are moderate in severity, no other aggravating alleviating factors.. Historical: - Allergies: 05:10 PENICILLINS; young; ha1 - Home Meds: 05:10 None [Active]; ha1 - PMHx: 05:10 Anxiety; Asthma; GERD; Hypertension; Resolved; Migraines; ha1 - PSHx: 05:10 Cornea transplant L eye; ha1 - Immunization history:: Adult Immunizations up to date. - Social history:: Smoking status: Patient denies any tobacco usage or history of. - Family history:: not pertinent. ROS: 05:47 Constitutional: Negative for fever, chills, and weight loss, Cardiovascular: Negative rt for chest pain, palpitations, and edema, Respiratory: Negative for shortness of breath, cough, wheezing, and pleuritic chest pain, MS/Extremity: Negative for injury and deformity, Skin: Negative for injury, rash, and discoloration, Neuro: Negative for headache, weakness, numbness, tingling, and seizure, Psych: Negative for depression, anxiety, suicide ideation, homicidal ideation, and hallucinations. 05:47 Abdomen/GI: Positive for abdominal pain, nausea, vomiting, and diarrhea. Exam: 05:47 Constitutional: This is a well developed, well nourished patient who is awake, alert, rt and in no acute distress. Head/Face: Normocephalic, atraumatic. Chest/axilla: Normal chest wall appearance and motion. Nontender with no deformity. No lesions are appreciated. Cardiovascular: Regular rate and rhythm with a normal S1 and S2. No gallops, murmurs, or rubs. Normal PMI, no JVD. No pulse deficits. Respiratory: Lungs have equal breath sounds bilaterally, clear to auscultation and percussion. No rales, rhonchi or wheezes noted. No increased work of breathing, no retractions or nasal flaring. Skin: Warm, dry with normal turgor. Normal color with no rashes, no lesions, and no evidence of cellulitis. MS/ Extremity: Pulses equal, no cyanosis. Neurovascular intact. Full, normal range of motion. Neuro: Awake and alert, GCS 15, oriented to person, place, time, and situation. Cranial nerves II-XII grossly intact. Motor strength 5/5 in all extremities. Sensory grossly intact. Cerebellar exam normal. Normal gait. Psych: Awake, alert, with orientation to person, place and time. Behavior, mood, and affect are within normal limits. 05:47 Abdomen/GI: Mild tenderness diffusely without rebound, guarding, distention. 06:37 ECG was reviewed by the Attending Physician. rt Vital Signs: 05:10 BP 143 / 67; Pulse 74; Resp 19 S; Temp 97.9; Pulse Ox 99% on R/A; Weight 102.06 kg; ha1 Height 5 ft. 10 in. (177.80 cm); Pain 6/10; 06:10 BP 137 / 71; Pulse 87; Resp 18 S; Pulse Ox 98% on R/A; ha1 07:22 BP 130 / 67; Pulse 66; Resp 18; Pulse Ox 97% ; ko1 05:10 Body Mass Index 32.28 (102.06 kg, 177.80 cm) ha1 MDM: 05:18 Patient medically screened. rt 07:12 Transition of care: Care assumed from João Barillas MD. ms3 08:11 Differential diagnosis: Nonspecific abd pain, diverticulitis, bowel obstruction vs ACS. ms3 Data reviewed: vital signs, nurses notes, lab test result(s), radiologic studies, and as a result, I will discharge patient. I considered the following discharge prescriptions or medication management in the emergency department Medications were administered in the Emergency Department. See MAR. Independent interpretation of the following test(s) in the Emergency Department CT Scan: My interpretation is CT images reviewed by me: No free air identified. Care significantly affected by the following Social Determinants of Health: Poor access to healthcare and/or lack of insurance. ED course: Discussed imaging, labs with patient. Patient follow-up Dr. Abbott in 2 to 3 days. Patient understands and agrees with plan. All questions were answered. Return precautions discussed include worsening symptoms, or any other concerns. On reevaluation patient improved, no apparent distress, nontoxic, ambulatory in emergency department, tolerating p.o.. 09/03 05:27 Order name: CBC with Diff rt 09/03 05:27 Order name: CMP rt 09/03 05:27 Order name: Troponin High Sensitivity rt 09/03 05:27 Order name: EKG; Complete Time: 05:28 rt 09/03 05:27 Order name: EKG - Nurse/Tech; Complete Time: 06:25 rt 09/03 05:27 Order name: CT Abd/Pelvis - IV Contrast Only rt 09/03 05:27 Order name: Urine Dipstick-Ancillary (obtain specimen); Complete Time: 06:36 rt 09/03 05:27 Order name: Urine Microscopic Only rt 09/03 06:17 Order name: CBC with Automated Diff; Complete Time: 06:42 EDMS 09/03 06:34 Order name: Urine Dipstick-Ancillary; Complete Time: 06:42 EDMS 09/03 06:35 Order name: Comprehensive Metabolic Panel; Complete Time: 06:42 EDMS 09/03 06:35 Order name: Troponin High Sensitivity; Complete Time: 06:42 EDMS 09/03 07:25 Order name: Urine Microscopic Only; Complete Time: 07:53 EDMS 09/03 07:52 Order name: CT; Complete Time: 07:53 EDMS EC:37 Rate is 67 beats/min. Rhythm is regular, Normal Sinus Rhythm with No ectopy. QRS [place] rt is Normal. [place] interval is normal. QRS interval is normal. QT interval is normal. No Q waves. T waves are Normal. No ST changes noted. Administered Medications: 06:00 Drug: GI Cocktail without - (Maalox Suspension 30 ml, Lidocaine Liquid 2 % 15 ha1 ml) Route: PO; 06:00 Drug: NS 0.9% 1000 ml Route: IV; Rate: 1 bolus; Site: left antecubital; ha1 06:01 Drug: Benadryl (diphenhydrAMINE) 25 mg Route: IVP; Site: left antecubital; ha1 06:04 Drug: Reglan (metoCLOPramide) 10 mg Route: IVP; Site: left antecubital; ha1 06:07 Drug: ProTONIX (pantoprazole) 40 mg Route: IVP; Site: left antecubital; ha1 Disposition Summary: 09/03/22 08:10 Discharge Ordered Location: Home ms3 Condition: Stable ms3 Diagnosis - Vomiting ms3 - Abdominal pain, Generalized ms3 - Anemia, unspecified ms3 Followup: ms3 - With: John Abbott MD - When: 2 - 3 days - Reason: Recheck today's complaints Discharge Instructions: - Discharge Summary Sheet ms3 - Abdominal Pain, Adult ms3 - Anemia ms3 - Nausea and Vomiting, Adult ms3 Forms: - Work release form eb - Medication Reconciliation Form ms3 - Thank You Letter ms3 - Antibiotic Education ms3 - Prescription Opioid Use ms3 Prescriptions: - ondansetron 4 mg Oral - take 4 milligrams by SUBLINGUAL route every 8 hours; 15 tablet; Refills: 0, ms3 Product Selection Permitted Signatures: Dispatcher [employer] EDJose Francisco Jacinto DO DO ms3 Monica Elliott RN RN ha1 João Barillas MD MD rt
[2022-09-03 08:26] VITALS: TEMP 97.9
[2022-09-03 08:29] VITALS: BP 130/67; O2SAT 97
--- NOTE | 2022-09-03 14:28 | EKG ---
Test Date: 2022-09-03 Test Time: 06:16:40 Breakdown Man: SURESH MEASUREMENT RESULTS: Intervals: Rate: 67 NH: 128 QRSD: 80 QT: 388 QTc: 409 [place]: P: 43 NH: 128 QRS: 17 T: 23 INTERPRETIVE STATEMENTS: Normal sinus rhythm RSR' or QR pattern in V1 suggests right ventricular conduction delay Nonspecific T wave abnormality Abnormal ECG Compared to ECG 05/29/2022 20:05:31 RSR' in V1 or V2 now present T-wave abnormality now present Electronically Signed On 09-03-22 14:27:56 [employer] by Silvano Victoria
== END 2022-09-03 08:21 | disposition home or self-care (01) ==
LOC: ER 04:59
DX: R11.10 Vomiting, unspecified (principal); R10.84 Generalized abdominal pain; D64.9 Anemia, unspecified; Z88.0 Allergy status to penicillin
CPT/HCPCS: 36415; 74177; 80053; 81003; 81015; 84484; 85025; 93005; 96374; 96375; 99284; C9113; J1200; J2765; J7030; Q9967

== ENCOUNTER 2022-10-26 10:19 | Emergency (ER) | payer SELFPAY ==
--- NOTE | 2022-10-26 11:55 | RAD REPORT ---
EXAM DESCRIPTION: Rubint Pa And Lat (2 Views)10/26/2022 11:38 am CLINICAL HISTORY: COUGH COMPARISON: Chest Single View dated 05/29/2022; Chest Single View dated 05/13/2022; Chest Single Vie w dated 05/08/2022; Chest Single View dated 11/09/2021 TECHNIQUE: PA and lateral views of the chest. FINDINGS: The lungs are clear. No pneumothorax or effusion. The cardiomediastinal contours are unrem arkable. IMPRESSION: No acute cardiopulmonary process.
--- NOTE | 2022-10-26 12:13 | EDPHYS ---
Physician Documentation [facility] Name: Holden Morris Age: 37 yrs Sex: Male : 1985 Arrival Date: 10/26/2022 Time: 10:19 Bed DIS4 Private MD: ED Physician Jose Francisco Wheeler HPI: 10/26 11:12 This 37 yrs old Black Male presents to ER via Ambulatory with complaints of Vomiting, ms3 Cough. 11:12 37-year-old male with past medical history of anxiety, asthma, GERD, hypertension, ms3 migraines presents for cough, vomiting that began 2 days ago. Patient states his head is a 10/10. Patient states he took Tylenol at 6 AM. Patient denies sick contacts.. Historical: - Allergies: 11:04 PENICILLINS; young; ap3 - PMHx: 11:04 Anxiety; Asthma; GERD; Hypertension; Resolved; Migraines; ap3 - PSHx: 11:04 Cornea transplant L eye; ap3 - Immunization history:: Client reports receiving the 2nd dose of the Covid vaccine. - Social history:: Smoking status: Patient denies any tobacco usage or history of. ROS: 11:12 Constitutional: Negative for fever, and chills. Neck: Negative for injury, pain, and ms3 swelling, Cardiovascular: Negative for chest pain, and palpitations. 11:12 MS/Extremity: Negative for injury and deformity, Skin: Negative for injury, rash, and discoloration. 11:12 Respiratory: Positive for cough. 11:12 Abdomen/GI: Positive for nausea and vomiting. 11:12 All other systems are negative. Exam: 11:12 Constitutional: This is a well developed, well nourished patient who is awake, alert, ms3 and in no acute distress. Head/Face: Normocephalic, atraumatic. Neck: Trachea midline, no cervical lymphadenopathy. Supple, full range of motion without nuchal rigidity, or vertebral point tenderness. No Meningismus. Chest/axilla: Normal chest wall appearance and motion. Nontender with no deformity. Cardiovascular: Regular rate and rhythm with a normal S1 and S2. No gallops, murmurs, or rubs. Normal PMI, no JVD. No pulse deficits. Respiratory: Lungs have equal breath sounds bilaterally, clear to auscultation and percussion. No rales, rhonchi or wheezes noted. No increased work of breathing, no retractions or nasal flaring. Abdomen/GI: Soft, non-tender, with normal bowel sounds. No distension or tympany. No guarding or rebound. No evidence of tenderness throughout. Skin: Warm, dry with normal turgor. Normal color with no rashes, no lesions, and no evidence of cellulitis. MS/ Extremity: Pulses equal, no cyanosis. Neurovascular intact. Full, normal range of motion. Vital Signs: 11:03 BP 135 / 82; Pulse 74; Resp 17; Temp 98.7; Pulse Ox 97% ; Weight 97.52 kg; Height 5 ft. ap3 10 in. ; 11:03 Body Mass Index 30.85 (97.52 kg, 177.8 cm) ap3 MDM: 10:34 Patient medically screened. [facility] 11:12 Differential diagnosis: URI versus pneumonia versus migraine. ms3 12:12 Data reviewed: vital signs, nurses notes, radiologic studies, and as a result, I will ms3 discharge patient. I considered the following discharge prescriptions or medication management in the emergency department Medications were administered in the Emergency Department. See MAR. Independent interpretation of the following test(s) in the Emergency Department X-Ray: My interpretation is X-ray image reviewed and no PNA visualized. Counseling: I had a detailed discussion with the patient and/or guardian regarding: the historical points, exam findings, and any diagnostic results supporting the discharge/admit diagnosis, radiology results, the need for outpatient follow up, to return to the emergency department if symptoms worsen or persist or if there are any questions or concerns that arise at home. ED course: Discussed x-ray results with patient. Patient to follow-up with primary care physician in 2 to 3 days. Patient understands agrees with plan. All questions were answered. Return precautions discussed include worsening symptoms, or any other concerns. On reevaluation patient is alert and oriented x4, no apparent distress, nontoxic-appearing, ambulatory in emergency department, speaking full sentences. 10/26 10:44 Order name: Chest Pa And Lat (2 Views) XRAY; Complete Time: 12:08 ms3 Administered Medications: 12:11 Drug: Ibuprofen PO 600 mg Route: PO; aa5 12:12 Follow up: Response: No adverse reaction; Medication administered at discharge. aa5 Disposition Summary: 10/26/22 12:12 Discharge Ordered Location: Home ms3 Condition: Stable ms3 Diagnosis - Cough ms3 - Post tussive emesis ms3 Followup: ms3 - With: Navin Longo DO - When: 2 - 3 days - Reason: Recheck today's complaints Discharge Instructions: - Discharge Summary Sheet kj1 Forms: - Work release form kj1 - Medication Reconciliation Form ms3 - Thank You Letter ms3 - Antibiotic Education ms3 - Prescription Opioid Use ms3 Signatures: Dispatcher [employer] Kanwal Mcwilliams, RN RN aa5 Mia Armendariz RN RN ap3 Jose Francisco Wheeler DO DO ms3 Priscila Lees FNP CLINICAL AUDIOLOGIST jh7
--- NOTE | 2022-10-26 12:13 | ER ---
Nurse's Notes [facility] Name: Holden Morris Age: 37 yrs Sex: Male : 1985 Arrival Date: 10/26/2022 Time: 10:19 Bed DIS4 Private MD: Diagnosis: Cough;Post tussive emesis Presentation: 10/26 11:03 Chief complaint: Patient states: he has had cough and congestion for approx 2 days, ap3 along with a migraine headache. patient also reports vomiting blood this morning. Coronavirus screen: At this time, the client does not indicate any symptoms associated with coronavirus-19. Ebola Screen: No symptoms or risks identified at this time. Initial Sepsis Screen: Does the patient meet any 2 criteria? No. Patient's initial sepsis screen is negative. Does the patient have a suspected source of infection? No. Patient's initial sepsis screen is negative. Risk Assessment: Do you want to hurt yourself or someone else? Patient reports no desire to harm self or others. Onset of symptoms was October 24, 2022. 11:03 Method Of Arrival: Ambulatory ap3 11:03 Acuity: STONE 3 ap3 Triage Assessment: 11:04 General: Appears in no apparent distress. Behavior is calm, cooperative, appropriate ap3 for age. Pain: Complains of pain in head Pain currently is 9 out of 10 on a pain scale. Pain began gradually, 2-3 days ago. Neuro: Level of Consciousness is awake, alert, obeys commands, Oriented to person, place, time, situation, Reports headache. Respiratory: Airway is patent Respiratory effort is even, unlabored, Respiratory pattern is regular, symmetrical. GI: Reports vomiting. Historical: - Allergies: 11:04 PENICILLINS; young; ap3 - PMHx: 11:04 Anxiety; Asthma; GERD; Hypertension; Resolved; Migraines; ap3 - PSHx: 11:04 Cornea transplant L eye; ap3 - Immunization history:: Client reports receiving the 2nd dose of the Covid vaccine. - Social history:: Smoking status: Patient denies any tobacco usage or history of. Screenin:05 [facility] ED Fall Risk Assessment (Adult) History of falling in the last 3 months, ap3 including since admission No falls in past 3 months (0 pts). Abuse screen: Denies threats or abuse. Nutritional screening: No deficits noted. Tuberculosis screening: No symptoms or risk factors identified. Assessment: 12:11 Neuro: Level of Consciousness is awake, alert, obeys commands, Oriented to person, aa5 place, time, situation. Respiratory: Airway is patent Respiratory effort is even, unlabored, Respiratory pattern is regular, symmetrical. Derm: Skin is dry, Skin is normal, Skin temperature is warm. Vital Signs: 11:03 BP 135 / 82; Pulse 74; Resp 17; Temp 98.7; Pulse Ox 97% ; Weight 97.52 kg; Height 5 ft. ap3 10 in. ; 11:03 Body Mass Index 30.85 (97.52 kg, 177.8 cm) ap3 ED Course: 10:25 Patient arrived in ED. mr 10:30 Jose Francisco Wheeler DO is Attending Physician. ms3 10:34 Priscila Lees FNP [facility] jh7 11:04 Triage completed. ap3 11:05 Arm band placed on left wrist. ap3 11:39 Chest Pa And Lat (2 Views) XRAY In Process Unspecified. EDMS 12:11 Navin Longo DO is Referral Physician. ms3 12:15 No provider procedures requiring assistance completed. Patient did not have IV access aa5 during this emergency room visit. Administered Medications: 12:11 Drug: Ibuprofen PO 600 mg Route: PO; aa5 12:12 Follow up: Response: No adverse reaction; Medication administered at discharge. aa5 Medication: 12:15 VIS not applicable for this client. aa5 Outcome: 12:12 Discharge ordered by MD. ms3 12:15 Discharged to home ambulatory. aa5 12:15 Condition: stable 12:15 Discharge instructions given to patient, Instructed on discharge instructions, follow up and referral plans. Demonstrated understanding of instructions, follow-up care. 12:19 Patient left the ED. aa5 Signatures: Dispatcher [employer] EDPR Anika Han PhilKanwal RN RN aa5 Mia Armendariz RN RN ap3 Jose Francisco Wheeler DO DO ms3 Priscila Lees FNP MANAGER HEART FAILURE 7
[2022-10-26] MEDS ORDERED: IBUPROFEN 400 MG TAB ONE (12:14)
[2022-10-26] MEDS ORDERED: IBUPROFEN 200 MG TAB PO ONE (12:15)
[2022-10-26 12:23] VITALS: BP 135/82; TEMP 98.7; O2SAT 97
== END 2022-10-26 12:19 | disposition home or self-care (01) ==
LOC: ER 10:19
DX: R05.9 Cough, unspecified (principal); R11.10 Vomiting, unspecified
CPT/HCPCS: 71046; 99283

== ENCOUNTER 2022-11-10 06:21 | Emergency (ER) | payer OTHER ==
[2022-11-10] MEDS ORDERED: FAMOTIDINE 20 MG/2 ML VIAL IV ONE (07:05)
[2022-11-10] MEDS ORDERED: MORPHINE 4 MG/ML SYR ONE (07:05)
[2022-11-10] MEDS ORDERED: NA CHLORIDE 0.9% 1,000 ML ONE (07:05)
[2022-11-10] MEDS ORDERED: ONDANSETRON 4 MG/2 ML VIAL ONE (07:05)
[2022-11-10 07:26] LABS: Hematocrit 38.2 % (39.6-49.0); Lymphocytes % 30.3 % (15.3-44.8); MCV 74.3 fL (80-100); MPV 7.3 fL (7.6-11.3); RBC Red Blood Cell Count 5.15 M/uL (4.33-5.43)
[2022-11-10 07:42] LABS: Albumin 3.4 g/dL (3.4-5.0); Bilirubin Total 0.2 mg/dL (0.2-1.0); Potassium 3.9 mEq/L (3.5-5.1); Protein, Total 7.4 g/dL (6.4-8.2)
--- NOTE | 2022-11-10 07:46 | RAD REPORT ---
EXAM DESCRIPTION: US - Abdomen Exam Limited - 11/10/2022 7:20 am CLINICAL HISTORY: ABD PAIN COMPARISON: Abdomen Pelvis W Contrast dated 09/03/2022; Abdomen Pelvis W Contrast dated 11/10/2022 FINDINGS: The gallbladder demonstrates no gallstones. No pericholecystic fluid or gallbladder wall t hickening. Common bile duct is obscured by gas. The liver demonstrates no findings of intrahepatic biliary dilatation. IMPRESSION: Negative for cholelithiasis or evidence of acute cholecystitis. Nonvisualized common al e duct due to bowel gas.
--- NOTE | 2022-11-10 07:48 | RAD REPORT ---
EXAM DESCRIPTION: CTAbdomen Pelvis W Contrast - 11/10/2022 7:26 am CLINICAL HISTORY: ABD PAIN COMPARISON: Abdomen Pelvis W Contrast dated 09/03/2022; Abdomen Pelvis W Contrast dated 06/16/2020 ; Abdomen Pelvis W Contrast dated 04/16/2020 TECHNIQUE: CT of the abdomen and pelvis was performed. All CT scans are performed using dose optimization technique as appropriate and may include automated exposure control or mA/KV adjustment according to patient size. FINDINGS: Lower chest: No acute abnormality. Liver: No acute abnormality or suspicious lesions. Biliary: No biliary ductal dilatation. Stomach: No significant focal abnormality. Duodenum: No significant focal abnormality. Pancreas: No significant abnormality. Spleen: No significant abnormality. Adrenal: No suspicious lesions. Kidney/ureter: No hydronephrosis. No renal calculi. Too small to characterize and/or benign appearing renal lesions are noted. Retroperitoneum: No retroperitoneal adenopathy. Vascular: No aneurysm. Bowel: No significant focal abnormality. Normal appendix. Peritoneum: No ascites or free air. Bladder: Grossly unremarkable. Reproductive: No adnexal masses. Bones: No acute fracture. Other: n/a IMPRESSION: No acute intra-abdominal or pelvic finding. Normal appendix.
--- NOTE | 2022-11-10 09:21 | EDPHYS ---
Physician Documentation [facility] Name: Holden Morris Age: 37 yrs Sex: Male : 1985 Arrival Date: 11/10/2022 Time: 06:21 Bed 6 Private MD: ED Physician Jose Francisco Wheeler HPI: 11/10 06:40 This 37 yrs old Black Male presents to ER via EMS with complaints of abd and back pain. lorna 06:40 The patient presents with abdominal pain in the upper abdomen, in the lower abdomen, lorna abdominal distention in the upper abdomen, in the lower abdomen. Onset: The symptoms/episode began/occurred 3 day(s) ago. The patient presents with pain that is acute, and decreased range of motion. The symptoms are located in the low back, lumbar area, sacrum, left low back and right low back. Onset: The symptoms/episode began/occurred 3 day(s) ago. Location: left low back and right low back. Associated signs and symptoms: Pertinent positives: abdominal pain, fever, nausea. Modifying factors: The patient symptoms are alleviated by nothing, remaining still, the patient symptoms are aggravated by any movement, bending, standing, walking. The symptoms radiate to right leg and left leg. Severity of symptoms: At their worst the symptoms were moderate, in the emergency department the symptoms. Historical: - Allergies: 06:29 PENICILLINS; young; kl - PMHx: 06:29 Anxiety; Asthma; GERD; Hypertension; Resolved; Migraines; kl - PSHx: 06:29 Cornea transplant L eye; kl - Immunization history:: Adult Immunizations not up to date. - Social history:: Smoking status: Patient denies any tobacco usage or history of. - Family history:: not pertinent. ROS: 06:40 Constitutional: Negative for fever, chills, and weight loss, Eyes: Negative for injury, lorna pain, redness, and discharge, ENT: Negative for injury, pain, and discharge, Neck: Negative for injury, pain, and swelling, Cardiovascular: Negative for chest pain, palpitations, and edema, Respiratory: Negative for shortness of breath, cough, wheezing, and pleuritic chest pain, : Negative for injury, bleeding, discharge, and swelling, MS/Extremity: Negative for injury and deformity, Skin: Negative for injury, rash, and discoloration, Neuro: Negative for headache, weakness, numbness, tingling, and seizure. 06:40 Abdomen/GI: Positive for abdominal pain, nausea, abdominal cramps, abdominal distension, of the right upper quadrant, left upper quadrant, right lower quadrant and left lower quadrant. 06:40 Back: Positive for decreased range of motion, pain at rest, pain with movement, radiated pain, of the left low back and right low back. Exam: 06:40 Constitutional: This is a well developed, well nourished patient who is awake, alert, lorna and in no acute distress. Head/Face: Normocephalic, atraumatic. Eyes: Pupils equal round and reactive to light, extra-ocular motions intact. Lids and lashes normal. Conjunctiva and sclera are non-icteric and not injected. Cornea within normal limits. Periorbital areas with no swelling, redness, or edema. ENT: Nares patent. No nasal discharge, no septal abnormalities noted. Tympanic membranes are normal and external auditory canals are clear. Oropharynx with no redness, swelling, or masses, exudates, or evidence of obstruction, uvula midline. Mucous membranes moist. Neck: Trachea midline, no thyromegaly or masses palpated, and no cervical lymphadenopathy. Supple, full range of motion without nuchal rigidity, or vertebral point tenderness. No Meningismus. Chest/axilla: Normal chest wall appearance and motion. Nontender with no deformity. No lesions are appreciated. Cardiovascular: Regular rate and rhythm with a normal S1 and S2. No gallops, murmurs, or rubs. Normal PMI, no JVD. No pulse deficits. Respiratory: Lungs have equal breath sounds bilaterally, clear to auscultation and percussion. No rales, rhonchi or wheezes noted. No increased work of breathing, no retractions or nasal flaring. Male : Normal genitalia with no discharge or lesions. Skin: Warm, dry with normal turgor. Normal color with no rashes, no lesions, and no evidence of cellulitis. MS/ Extremity: Pulses equal, no cyanosis. Neurovascular intact. Full, normal range of motion. Neuro: Awake and alert, GCS 15, oriented to person, place, time, and situation. Cranial nerves II-XII grossly intact. Motor strength 5/5 in all extremities. Sensory grossly intact. Cerebellar exam normal. Normal gait. Psych: Awake, alert, with orientation to person, place and time. Behavior, mood, and affect are within normal limits. 06:40 Abdomen/GI: Inspection: abdomen appears normal, Bowel sounds: active, Palpation: mild abdominal tenderness, in all quadrants, Liver: no appreciated palpable abnormalities, Hernia: not appreciated. 06:40 Back: pain, that is mild, ROM is painful, with all movement, with flexion, with extension, decreased, normal spinal alignment noted, CVA tenderness, is absent, muscle spasm, is appreciated in the left low back, left mid back, right mid back and right low back. 06:40 Musculoskeletal/extremity: ROM: intact in all extremities, Circulation is intact in all extremities. Pulses: are normal with no appreciated deficits, Sensation intact. Compartment Syndrome exam of affected extremity: is normal. DVT Exam: No signs of deep vein thrombosis. no pain, no swelling, no tenderness, negative Homans' sign noted on exam, no appreciated bluish discoloration, no erythema, no increased warmth. Vital Signs: 06:26 BP 130 / 71; Pulse 78; Resp 18; Temp 98.1(TE); Pulse Ox 100% on R/A; Pain 10/10; kl 06:26 Pain Scale: Adult kl MDM: 06:26 Patient medically screened. lorna 06:43 Differential diagnosis: Obesity Pyelonephritis Renal Infarction ruptured disc, lorna Scoliosis spinal injury, sprain, Ureterolithiasis cholecystitis, Cholelithiasis, diverticulitis, gastritis, non-specific abd pain, pancreatitis, Peptic Ulcer Disease, vertebral fracture. Data reviewed: vital signs, nurses notes, EMS record, lab test result(s), radiologic studies, CT scan. Consideration of Admission/Observation Escalation of care including admission/observation considered. I considered the following discharge prescriptions or medication management in the emergency department Medications were administered in the Emergency Department. See MAR. Test considered but Not performed: MRI: no mri spine. Care significantly affected by the following chronic conditions: Hypertension, migraines, asthma, asthma, anxiety. 07:06 Transition of care: Care assumed from Aidan Carranza MD. ms3 11/10 06:31 Order name: CBC with Diff; Complete Time: 08:33 lorna 11/10 06:31 Order name: CMP; Complete Time: 08:33 lorna 11/10 06:31 Order name: Lipase; Complete Time: 08:33 [facility] 11/10 06:31 Order name: Abdomen Limited US; Complete Time: 08:33 lorna 11/10 07:01 Order name: Abdomen ; Complete Time: 08:33 EDMS 11/10 06:31 Order name: IV Saline Lock; Complete Time: 07:18 [facility] 11/10 06:31 Order name: Labs collected and sent; Complete Time: 07:18 [facility] Administered Medications: 07:18 Drug: NS 0.9% IV 1000 ml Route: IV; Rate: 1 bolus; Site: left antecubital; kc6 09:34 Follow up: Response: No adverse reaction; IV Status: Completed infusion kc6 07:18 Drug: Ondansetron IVP 4 mg Route: IVP; Site: left antecubital; kc6 09:33 Follow up: Response: No adverse reaction kc6 07:18 Drug: morphine IVP or IV 4 mg Route: IVP; Infused Over: 4 mins; Site: left antecubital; kc6 09:33 Follow up: Response: No adverse reaction; Pain is decreased; RASS: Alert and Calm (0) kc6 07:18 Drug: Famotidine IVP 20 mg Route: IVP; Site: left antecubital; kc6 09:34 Follow up: Response: No adverse reaction kc6 09:23 Drug: Decadron - Dexamethasone IVP 10 mg Route: IVP; Site: left antecubital; kc6 09:34 Follow up: Response: No adverse reaction kc6 Disposition Summary: 11/10/22 09:20 Discharge Ordered Location: Home ms3 Condition: Stable ms3 Diagnosis - Back pain ms3 - Abdominal pain, unspecified ms3 Followup: ms3 - With: Navin Longo, DO - When: 2 - 3 days - Reason: Recheck today's complaints Discharge Instructions: - Discharge Summary Sheet ms3 - Abdominal Pain, Adult ms3 - Acute Back Pain, Adult ms3 Forms: - Medication Reconciliation Form ms3 - Thank You Letter ms3 - Antibiotic Education ms3 - Prescription Opioid Use ms3 Prescriptions: - Ibuprofen 600 mg Oral Tablet - take 1 tablet by ORAL route every 6 hours As needed take with food; 30 tablet; ms3 Refills: 0, Product Selection Permitted - Prednisone 20 mg Oral Tablet - take 2 tablets by ORAL route once daily for 5 days; 10 tablet; Refills: 0, ms3 Product Selection Permitted Signatures: Dispatcher [employer] EDMS Diana Graham, RN RN Aidan Burt MD MD cha Sims, Marcus, DO DO ms3 Nikki Nunez, RN RN kc6 Corrections: (The following items were deleted from the chart) 07:15 07:02 Abdomen Pelvis W Con+CT.RAD.BRZ ordered. EDMS EDMS
--- NOTE | 2022-11-10 09:21 | ER ---
Nurse's Notes [facility] Name: Holden Morris Age: 37 yrs Sex: Male : 1985 Arrival Date: 11/10/2022 Time: 06:21 Bed 6 Private MD: Diagnosis: Back pain;Abdominal pain, unspecified Presentation: 11/10 06:26 Chief complaint: Patient states: lower back pain making it difficult to walk reports kl seen here on Tuesday for back pain after helping friend move worked Tuesday and Tuesday with out difficulty. Coronavirus screen: Vaccine status: Patient reports being unvaccinated. Ebola Screen: Patient negative for fever greater than or equal to 101.5 degrees Fahrenheit, and additional compatible Ebola Virus Disease symptoms. Initial Sepsis Screen: Does the patient meet any 2 criteria? No. Patient's initial sepsis screen is negative. Does the patient have a suspected source of infection? No. Patient's initial sepsis screen is negative. Risk Assessment: Do you want to hurt yourself or someone else? Patient reports no desire to harm self or others. 06:26 Method Of Arrival: EMS: [facility] 06:26 Acuity: STONE 4 kl Triage Assessment: 06:29 General: Appears uncomfortable, Behavior is calm, cooperative. Pain: Complains of pain kl in back Pain radiates to back of left leg and back of right leg Pain currently is 10 out of 10 on a pain scale. Quality of pain is described as sharp, shooting. EENT: No deficits noted. Neuro: No deficits noted. Cardiovascular: No deficits noted. Respiratory: No deficits noted. GI: No deficits noted. No signs and/or symptoms were reported involving the gastrointestinal system. : No deficits noted. No signs and/or symptoms were reported regarding the genitourinary system. Derm: No deficits noted. No signs and/or symptoms reported regarding the dermatologic system. Musculoskeletal: Reports pain in back. Historical: - Allergies: : PENICILLINS; young; kl - PMHx: :29 Anxiety; Asthma; GERD; Hypertension; Resolved; Migraines; kl - PSHx: : Cornea transplant L eye; kl - Immunization history:: Adult Immunizations not up to date. - Social history:: Smoking status: Patient denies any tobacco usage or history of. - Family history:: not pertinent. Screenin:30 [facility] ED Fall Risk Assessment (Adult) History of falling in the last 3 months, kl including since admission No falls in past 3 months (0 pts) Confusion or Disorientation No (0 pts) Intoxicated or Sedated No (0 pts) Impaired Gait Yes (1 pt) Mobility Assist Device Used No (0 pt) Altered Elimination No (0 pt) Score/Fall Risk Level 0 - 2 = Low Risk Oriented to surroundings, Maintained a safe environment. Abuse screen: Denies threats or abuse. Nutritional screening: No deficits noted. Tuberculosis screening: No symptoms or risk factors identified. Assessment: 06:30 Reassessment: see triage . kl 07:19 General: Appears in no apparent distress. comfortable, Behavior is calm, cooperative, kc6 appropriate for age. Pain: Complains of pain in back Pain currently is 10 out of 10 on a pain scale. Quality of pain is described as piercing, Is continuous, Alleviated by rest, Aggravated by increased activity, repositioning. Neuro: Simental Agitation-Sedation Scale (RASS): 0 - Alert and Calm Level of Consciousness is awake, alert, obeys commands, Oriented to person, place, time, situation, Appropriate for age. Cardiovascular: Capillary refill < 3 seconds. Respiratory: Airway is patent Trachea midline Respiratory effort is even, unlabored, Respiratory pattern is regular, symmetrical. Vital Signs: 06:26 BP 130 / 71; Pulse 78; Resp 18; Temp 98.1(TE); Pulse Ox 100% on R/A; Pain 10/10; kl 06:26 Pain Scale: Adult ED Course: 06:26 Patient arrived in ED. kl 06:26 Aidan Carranza MD is Attending Physician. lorna 06:29 Triage completed. kl 06:31 Patient has correct armband on for positive identification. Bed in low position. Call kl light in reach. Side rails up X2. 06:31 No provider procedures requiring assistance completed. kl 07:06 Attending Physician role handed off by Aidan Carranza MD ms3 07:06 Jose Francisco Wheeler DO is Attending Physician. ms3 07:18 Nikki Nunez, NICOL is Primary Nurse. kc6 07:19 Arm band placed on. kc6 07:19 Inserted saline lock: 20 gauge in left antecubital area, using aseptic technique. Blood kc6 collected. 07:21 Abdomen Limited US In Process Unspecified. EDMS 07:27 Abdomen In Process Unspecified. EDMS 09:20 Navin Longo DO is Referral Physician. ms3 09:34 IV discontinued, intact, bleeding controlled, No redness/swelling at site. Pressure kc6 dressing applied. Administered Medications: 07:18 Drug: NS 0.9% IV 1000 ml Route: IV; Rate: 1 bolus; Site: left antecubital; kc6 09:34 Follow up: Response: No adverse reaction; IV Status: Completed infusion kc6 07:18 Drug: Ondansetron IVP 4 mg Route: IVP; Site: left antecubital; kc6 09:33 Follow up: Response: No adverse reaction kc6 07:18 Drug: morphine IVP or IV 4 mg Route: IVP; Infused Over: 4 mins; Site: left antecubital; kc6 09:33 Follow up: Response: No adverse reaction; Pain is decreased; RASS: Alert and Calm (0) kc6 07:18 Drug: Famotidine IVP 20 mg Route: IVP; Site: left antecubital; kc6 09:34 Follow up: Response: No adverse reaction kc6 09:23 Drug: Decadron - Dexamethasone IVP 10 mg Route: IVP; Site: left antecubital; kc6 09:34 Follow up: Response: No adverse reaction kc6 Medication: 06:31 VIS not applicable for this client. Outcome: 09:20 Discharge ordered by . ms3 09:34 Discharged to home ambulatory. kc6 09:34 Condition: improved 09:34 Discharge instructions given to patient, Instructed on discharge instructions, follow up and referral plans. medication usage, Demonstrated understanding of instructions, follow-up care, medications, Prescriptions given X 2. 09:34 Patient left the ED. kc6 Signatures: Dispatcher [employer] EDMS Diana Graham, RN Aidan Cary MD MD cha Sims, Marcus, DO DO ms3 Nikki Nunez, RN RN kc6
[2022-11-10] MEDS ORDERED: dexAMETHasone 10 MG/ML VIAL ONE (09:23)
[2022-11-10 09:51] VITALS: BP 130/71; TEMP 98.1; O2SAT 100
== END 2022-11-10 09:34 | disposition home or self-care (01) ==
LOC: ER 06:21
DX: M54.50 Low back pain, unspecified (principal); R10.30 Lower abdominal pain, unspecified; R10.10 Upper abdominal pain, unspecified; Z88.0 Allergy status to penicillin
CPT/HCPCS: 85025; 36415; 83690; 80053; 74177; 76705; Q9967; J1100; J2405; J7030

== ENCOUNTER 2023-01-17 08:12 | Emergency (ER) | payer OTHER ==
[2023-01-17] MEDS ORDERED: NA CHLORIDE 0.9% 1,000 ML ONE (09:20)
[2023-01-17] MEDS ORDERED: ONDANSETRON 4 MG/2 ML VIAL ONE (09:20)
[2023-01-17] MEDS ORDERED: FAMOTIDINE 20 MG/2 ML VIAL IV ONE (09:21)
[2023-01-17 14:41] LABS: Albumin 3.4 g/dL (3.4-5.0); Bilirubin Total 0.2 mg/dL (0.2-1.0); Potassium 3.8 mEq/L (3.5-5.1)
[2023-01-17 15:15] LABS: Absolute Lymphocytes (CBC) 2.4 K/uL (0.7-4.9); Hematocrit 36.4 % (39.6-49.0); Lymphocytes % 35.1 % (15.3-44.8); MCV 74.2 fL (80-100); MPV 7.4 fL (7.6-11.3); RBC Red Blood Cell Count 4.91 M/uL (4.33-5.43)
--- NOTE | 2023-01-17 15:16 | RAD REPORT ---
EXAM DESCRIPTION: CTAbdomen Pelvis W Contrast - 01/17/2023 1:41 pm CLINICAL HISTORY: Abdominal pain. abd pain COMPARISON: Abdomen Pelvis W Contrast dated 11/10/2022; Abdomen Pelvis W Contrast dated 09/03/2022; Abdomen Pelvis W Contrast dated 06/16/2020; Abdomen Pelvis W Contrast dated 04/16/2020 TECHNIQUE: Biphasic CT imaging of the abdomen and pelvis was performed with 100 ml non-ionic IV cont rast. All CT scans are performed using dose optimization technique as appropriate and may include automated exposure control or mA/KV adjustment according to patient size. FINDINGS: The lung bases are clear. The liver, spleen, pancreas, adrenal glands and kidneys are within normal limits. No bowel obstruction, free air, free fluid or abscess. The appendix is normal. No evidence of signi ficant lymphadenopathy. There appears to be a large disc herniation at L5-S1. IMPRESSION: No acute intra-abdominal or pelvic finding. Large disc herniation suspected at L5-S1.
--- NOTE | 2023-01-17 16:41 | EDPHYS ---
Physician Documentation [facility] Name: Holden Morris Age: 38 yrs Sex: Male : 1985 Arrival Date: 01/17/2023 Time: 08:12 Bed 17 Private MD: ED Physician Jose Ramon Tinajero HPI: 01/17 08:27 This 38 yrs old Black Male presents to ER via Unassigned with complaints of kb Nausea/Vomiting. 08:27 The patient presents to the emergency department with nausea, vomiting, diarrhea, kb abdominal pain. Onset: The symptoms/episode began/occurred this morning, at 04:00. Possible causes: unknown. The symptoms are aggravated by nothing. The symptoms are alleviated by nothing. Associated signs and symptoms: Pertinent positives: abdominal pain, diarrhea, GI bleeding, nausea, vomiting. Severity of symptoms: At their worst the symptoms were moderate in the emergency department the symptoms are unchanged. The patient has not experienced similar symptoms in the past. The patient has not recently seen a physician. Patient reports he woke up at 4 this morning for work and had an episode of vomiting and diarrhea. States diarrhea had some bright red blood. He called into work and laid back down. Went back to sleep for a while then woke up and had same symptoms. Reports 6 episodes of diarrhea and 4 episodes of vomiting in total. Reports upper abdominal pain.. Historical: - Allergies: 08:31 PENICILLINS; young; sg5 - Home Meds: 08:31 Nexium Oral [Active]; sg5 - PMHx: 08:31 Anxiety; Asthma; GERD; Hypertension; Resolved; Migraines; sg5 - PSHx: 08:31 Cornea transplant L eye; sg5 - Immunization history:: Adult Immunizations up to date. - Social history:: Smoking status: Patient denies any tobacco usage or history of. ROS: 08:27 Constitutional: Negative for fever, chills, and weight loss. kb 08:27 Abdomen/GI: Positive for abdominal pain, nausea, vomiting, and diarrhea, rectal bleeding. 08:27 All other systems are negative. Exam: 08:27 Constitutional: This is a well developed, well nourished patient who is awake, alert, kb and in no acute distress. Head/Face: Normocephalic, atraumatic. ENT: Moist Mucous membranes Cardiovascular: Regular rate and rhythm with a normal S1 and S2. No gallops, murmurs, or rubs. No pulse deficits. Respiratory: Respirations even and unlabored. No increased work of breathing. Talking in full sentences Abdomen/GI: Soft, non-tender. No distention Skin: Warm, dry with normal turgor. Normal color. MS/ Extremity: Pulses equal, no cyanosis. Neurovascular intact. Full, normal range of motion. Neuro: Awake and alert, GCS 15, oriented to person, place, time, and situation. Moves all extremities. Normal gait. 08:27 Abdomen/GI: Rectal exam: is unremarkable, rectal tone normal, Stool: normal, hemorrhoid(s), are not appreciated, tenderness, is not appreciated, the exam is chaperoned by the nurse. Vital Signs: 08:28 BP 138 / 57; Pulse 73; Resp 18; Temp 98.1(O); Pulse Ox 99% on R/A; Weight 97.52 kg; sg5 Height 5 ft. 9 in. ; Pain 4/10; 09:18 BP 119 / 61; Pulse 63; Resp 18; Pulse Ox 99% on R/A; sg5 10:03 BP 111 / 47; Pulse 89; Resp 16; Pulse Ox 97% on R/A; sg5 08:28 Body Mass Index 31.75 (97.52 kg, 175.26 cm) sg5 08:28 Pain Scale: Adult sg5 MDM: 08:26 Patient medically screened. kb 08:29 Data reviewed: vital signs, nurses notes. kb 09:50 Differential diagnosis: Nonspecific abd pain, gastritis, viral gastroenteritis, GERD, kb GI bleed. Discussion of test interpretation with radiology: I had a discussion with radiology regarding a test interpretation. Dr Simons gave verbal report to Dr Tinajero - santiago acute findings. . Counseling: I had a detailed discussion with the patient and/or guardian regarding: the historical points, exam findings, and any diagnostic results supporting the discharge/admit diagnosis, lab results, radiology results, the need for outpatient follow up, a family practitioner, a forestry engineer, to return to the emergency department if symptoms worsen or persist or if there are any questions or concerns that arise at home. ED course: No gross blood on rectal exam. Pt in no distress, nontoxic in appearance, no v/d since arrival. VSS. Educated on return precautions and need for follow up. 10:08 Historians other than the Patient: EMS: [facility]. kb 01/17 08:26 Order name: IV Saline Lock; Complete Time: 08:42 kb 01/17 08:26 Order name: Labs collected and sent; Complete Time: 08:43 kb Administered Medications: 09:20 Drug: NS 0.9% IV 1000 ml Route: IV; Rate: 1 bolus; Site: left antecubital; sg5 10:03 Follow up: IV Status: Completed infusion; IV Intake: 1000ml sg5 09:20 Drug: Famotidine IVP 20 mg Route: IVP; Site: left antecubital; sg5 09:20 Drug: Ondansetron IVP 4 mg Route: IVP; Site: left antecubital; sg5 Disposition: 11:03 Co-signature as Attending Physician, Jose Ramon Tinajero MD I reviewed the patient's care rn provided by the Advanced Practice Provider and agree with the diagnosis and treatment plan. Disposition Summary: 01/17/23 09:52 Discharge Ordered Location: Home kb Condition: Stable kb Diagnosis - Nausea with vomiting, unspecified kb - Diarrhea, unspecified kb Followup: kb - With: Emergency Department - When: As needed - Reason: Worsening of condition Followup: kb - With: Private Physician - When: 2 - 3 days - Reason: Recheck today's complaints, Continuance of care, Re-evaluation by your physician Discharge Instructions: - Discharge Summary Sheet kb - Food Choices to Help Relieve Diarrhea, Adult kb - Nausea and Vomiting, Adult, [id number] kb - Diarrhea, Adult, [id number] kb Forms: - Work release form kb - Medication Reconciliation Form kb - Thank You Letter kb - Antibiotic Education kb - Prescription Opioid Use kb - Patient Portal Instructions kb Prescriptions: - Zofran 4 mg Oral Tablet - take 1 tablet by ORAL route every 6 hours As needed; 12 tablet; Refills: 0, kb Product Selection Permitted Signatures: Eve Murray FNP-C FNP-Jose Ramon Michel MD MD rn Galvan, Stephanie, RN RN sg5
--- NOTE | 2023-01-17 16:41 | ER ---
Nurse's Notes [facility] Name: Holden Morris Age: 38 yrs Sex: Male : 1985 Arrival Date: 01/17/2023 Time: 08:12 Bed 17 Private MD: Diagnosis: Nausea with vomiting, unspecified;Diarrhea, unspecified Presentation: 01/17 08:28 Chief complaint: Patient states: Reports waking up this morning having abdominal sg5 cramping and nausea, vomiting x 4 and diarrhea x 6. Reports blood in vomit and diarrhea. Taking Pepcid x 1 month. Coronavirus screen: Vaccine status: Patient reports receiving the 2nd dose of the covid vaccine. Ebola Screen: No symptoms or risks identified at this time. Initial Sepsis Screen: Does the patient meet any 2 criteria? No. Patient's initial sepsis screen is negative. Does the patient have a suspected source of infection? No. Patient's initial sepsis screen is negative. Risk Assessment: Do you want to hurt yourself or someone else? Patient reports no desire to harm self or others. Onset of symptoms was January 17, 2023. 08:28 Method Of Arrival: EMS: [facility] sg5 08:28 Acuity: STONE 3 sg5 Triage Assessment: 08:31 General: Appears in no apparent distress. comfortable, Behavior is calm, cooperative, sg5 appropriate for age. Pain: Complains of pain in lower abdomen. GI: Reports lower abdominal pain, cramping, diarrhea, bloody stool, nausea, vomiting. Historical: - Allergies: 08:31 PENICILLINS; young; sg5 - Home Meds: 08:31 Nexium Oral [Active]; sg5 - PMHx: 08:31 Anxiety; Asthma; GERD; Hypertension; Resolved; Migraines; sg5 - PSHx: 08:31 Cornea transplant L eye; sg5 - Immunization history:: Adult Immunizations up to date. - Social history:: Smoking status: Patient denies any tobacco usage or history of. Screenin:11 [facility] ED Fall Risk Assessment (Adult) History of falling in the last 3 months, sg5 including since admission. Abuse screen: Denies threats or abuse. Nutritional screening: No deficits noted. Tuberculosis screening: No symptoms or risk factors identified. Assessment: 09:18 General: Appears in no apparent distress. comfortable, Behavior is calm, cooperative, sg5 appropriate for age. Pain: Complains of pain in lower abdomen and head. Neuro: Level of Consciousness is awake, alert, obeys commands, Oriented to person, place, time, situation, Appropriate for age. Cardiovascular: Capillary refill < 3 seconds Patient's skin is warm and dry. Respiratory: Airway is patent Trachea midline Respiratory effort is even, unlabored. GI: Abdomen is round non-distended. GI: Reports lower abdominal pain, cramping, diarrhea, bloody stool, nausea, vomiting. : No signs and/or symptoms were reported regarding the genitourinary system. EENT: No signs and/or symptoms were reported regarding the EENT system. Derm: No signs and/or symptoms reported regarding the dermatologic system. Musculoskeletal: Vital Signs: 08:28 BP 138 / 57; Pulse 73; Resp 18; Temp 98.1(O); Pulse Ox 99% on R/A; Weight 97.52 kg; sg5 Height 5 ft. 9 in. ; Pain 4/10; 09:18 BP 119 / 61; Pulse 63; Resp 18; Pulse Ox 99% on R/A; sg5 10:03 BP 111 / 47; Pulse 89; Resp 16; Pulse Ox 97% on R/A; sg5 08:28 Body Mass Index 31.75 (97.52 kg, 175.26 cm) sg5 08:28 Pain Scale: Adult sg5 ED Course: 08:25 Patient arrived in ED. im 08:26 [facility] kb 08:26 Jose Ramon Tinajero MD is Attending Physician. kb 08:28 Giuliana Espinoza, NICOL is Primary Nurse. sg5 08:31 Triage completed. sg5 08:31 Arm band placed on right wrist. sg5 08:43 Inserted saline lock: 22 gauge in left antecubital area, using aseptic technique. Blood ds4 collected. 10:11 Patient has correct armband on for positive identification. Bed in low position. Call sg5 light in reach. Valuables Left with patient. Provided Education on: digital exam, blood work, medication, prescriptions. 10:11 No provider procedures requiring assistance completed. IV discontinued. sg5 Administered Medications: 09:20 Drug: NS 0.9% IV 1000 ml Route: IV; Rate: 1 bolus; Site: left antecubital; sg5 10:03 Follow up: IV Status: Completed infusion; IV Intake: 1000ml sg5 09:20 Drug: Famotidine IVP 20 mg Route: IVP; Site: left antecubital; sg5 09:20 Drug: Ondansetron IVP 4 mg Route: IVP; Site: left antecubital; sg5 Medication: 10:12 VIS not applicable for this client. sg5 Intake: 10:03 IV: 1000ml; Total: 1000ml. sg5 Outcome: 09:52 Discharge ordered by MD. briones 10:11 Discharged to home ambulatory. sg5 10:11 Condition: good 10:11 Discharge instructions given to patient, Instructed on discharge instructions, follow up and referral plans. 10:12 Patient left the ED. sg5 Signatures: Eve Murray, AGRICULTURAL EQUIPMENT TEST ENGINEER-C AGRICULTURAL EQUIPMENT TEST ENGINEER-Stevie Kang ds4 Giuliana Espinoza RN RN sg5 Joann Bhakta
[2023-01-17 16:45] VITALS: TEMP 98.1
[2023-01-17 16:49] VITALS: BP 111/47; O2SAT 97
== END 2023-01-17 10:12 | disposition home or self-care (01) ==
LOC: ER 08:12
DX: R11.2 Nausea with vomiting, unspecified (principal); R19.7 Diarrhea, unspecified; I10 Essential (primary) hypertension; K21.9 Gastro-esophageal reflux disease without esophagitis; J45.909 Unspecified asthma, uncomplicated; F41.9 Anxiety disorder, unspecified; Z88.0 Allergy status to penicillin; Z88.8 Allergy status to other drugs, medicaments and biological substances
CPT/HCPCS: 96361; 85025; 36415; 83690; 80053; 74177; 96375; 96374; 99284; Q9967; J2405; J7030

== ENCOUNTER 2023-01-27 09:01 | Emergency (ER) | payer OTHER ==
--- NOTE | 2023-01-27 09:44 | RAD REPORT ---
EXAM DESCRIPTION: RAD - Chest Single View - 01/27/2023 9:29 am CLINICAL HISTORY: CHEST PAIN Chest pain. COMPARISON: Chest Pa And Lat (2 Views) dated 10/26/2022; Chest Single View dated 05/29/2022; Chest Si ngle View dated 05/13/2022; Chest Single View dated 05/08/2022 FINDINGS: Portable technique limits examination quality. The lungs are grossly clear. The heart is upper limit normal in size. No displaced fractures. IMPRESSION: No acute intrathoracic process suspected.
[2023-01-27 09:52] LABS: Absolute Lymphocytes (CBC) 1.7 K/uL (0.7-4.9); Hematocrit 37.1 % (39.6-49.0); Lymphocytes % 25.2 % (15.3-44.8); MCV 74.1 fL (80-100); MPV 7.3 fL (7.6-11.3); RBC Red Blood Cell Count 5.01 M/uL (4.33-5.43)
[2023-01-27 10:12] LABS: Potassium 3.7 mEq/L (3.5-5.1); Troponin High Sensitivity 3.8 pg/mL (<58.9)
--- NOTE | 2023-01-27 10:23 | ER ---
Nurse's Notes [facility] Name: Holden Morris Age: 38 yrs Sex: Male : 1985 Arrival Date: 01/27/2023 Time: 09:01 Bed 7 Private MD: Diagnosis: Chest pain, unspecified;Anemia, unspecified Presentation: 01/27 09:08 Chief complaint: Patient states: chest pain that began at 0500 today, reports mild SOB, aa5 and pain with inspiration. Denies cough, denies recent illness. 09:08 Coronavirus screen: shortness of breath. Ebola Screen: Patient denies travel to an aa5 Ebola-affected area in the 21 days before illness onset. Initial Sepsis Screen: Does the patient meet any 2 criteria? HR > 90 bpm. Does the patient have a suspected source of infection? No. Patient's initial sepsis screen is negative. Risk Assessment: Do you want to hurt yourself or someone else? Patient reports no desire to harm self or others. Onset of symptoms was January 27, 2023. 09:08 Acuity: STONE 3 aa5 09:08 Method Of Arrival: Ambulatory aa5 Historical: - Allergies: 09:08 PENICILLINS; young; aa5 - PMHx: 09:08 Anxiety; Asthma; GERD; Hypertension; Resolved; Migraines; aa5 - PSHx: 09:08 Cornea transplant L eye; aa5 - Immunization history:: Adult Immunizations unknown. - Social history:: Smoking status: Patient denies any tobacco usage or history of. Screenin:51 [facility] ED Fall Risk Assessment (Adult) Score/Fall Risk Level 0 - 2 = Low Risk me1 Maintained a safe environment, Assessed \T\ reinforced patient's understanding of fall precautions, Provided non-skid footwear, Hourly rounding (assess needs \T\ fall precautionary measures) done. Abuse screen: Denies threats or abuse. Nutritional screening: No deficits noted. Tuberculosis screening: No symptoms or risk factors identified. Assessment: 09:47 General: Appears uncomfortable, obese, Behavior is calm, cooperative, appropriate for me1 age, Reports chest pain that started at 05:00 with mild sob. Pain worsens on inspiration. Pain: Complains of pain in chest Pain does not radiate. Pain currently is 9 out of 10 on a pain scale. Quality of pain is described as pressure, Pain began 05:00. Neuro: No deficits noted. Level of Consciousness is Oriented to person, place, time, situation, Appropriate for age. Cardiovascular: Capillary refill < 3 seconds Patient's skin is warm and dry. Rhythm is sinus rhythm. Respiratory: Respiratory effort is even, unlabored, Respiratory pattern is regular, symmetrical. Vital Signs: 09:08 BP 154 / 100; Pulse 99; Resp 20 S; Temp 98.8(O); Pulse Ox 98% on R/A; Weight 111.13 kg aa5 (R); Height 5 ft. 7 in. (R); Pain 9/10; 10:03 BP 135 / 87; Pulse 74; Resp 17; Pulse Ox 97% on R/A; Pain 9/10; me1 10:29 BP 113 / 63; Pulse 75; Resp 15; Pulse Ox 99% on R/A; me1 09:08 Body Mass Index 38.37 (111.13 kg, 170.18 cm) aa5 09:08 Pain Scale: Adult aa5 10:03 Pain Scale: Adult me1 ED Course: 09:02 Patient arrived in ED. im 09:03 Jose Francisco Wheeler DO is Attending Physician. ms3 09:08 Arm band placed on. aa5 09:14 Ludivina Naranjo, RN is Primary Nurse. me1 09:31 XRAY Chest (1 view) In Process Unspecified. EDMS 09:37 Triage completed. aa5 09:40 Initial lab(s) drawn, by me, sent to lab. Inserted saline lock: 22 gauge in left me1 antecubital area, using aseptic technique. 09:51 Patient has correct armband on for positive identification. Bed in low position. Call mn1 light in reach. Side rails up X 1. Provided Education on: on poc, verbalized understanding and agreement. . Client placed on continuous cardiac and pulse oximetry monitoring. NIBP monitoring applied. steel erecting pusher on. Pulse ox on. NIBP on. 09:51 Patient maintains SpO2 saturation greater than 95% on room air. me1 10:22 Navin Longo DO is Referral Physician. ms3 10:29 No provider procedures requiring assistance completed. me1 10:56 IV discontinued, intact, bleeding controlled, No redness/swelling at site. Pressure me1 dressing applied. Administered Medications: No medications were administered Medication: 09:53 VIS not applicable for this client. me1 Outcome: 10:23 Discharge ordered by . ms3 10:29 Condition: stable me1 10:56 Discharged to home ambulatory. me1 10:56 Discharge instructions given to patient. 10:57 Patient left the ED. me1 Signatures: Dispatcher [employer] Kanwal Mcwilliams, RN RN aa5 Jose Francisco Wheeler DO DO ms3 Joann Bhakta Michelle, RN RN me1 Corrections: (The following items were deleted from the chart) 09:38 09:08 BP 154 / 100; Pulse 99bpm; Resp 20bpm; Spontaneous; Pulse Ox 98% RA; Temp 98.8F aa5 Oral; 111.13 kg Reported; Height 5 ft. 7 in. Reported; BMI: 38.3; aa5 09:50 09:43 General: Appears uncomfortable, obese, Behavior is calm, cooperative, appropriate me1 for age, Reports chest pain that started at 05:00 with sob. me1
--- NOTE | 2023-01-27 10:23 | EDPHYS ---
Physician Documentation [facility] Name: Holden Morris Age: 38 yrs Sex: Male : 1985 Arrival Date: 01/27/2023 Time: 09:01 Bed 7 Private MD: ED Physician Jose Francisco Wheeler HPI: 01/27 09:19 This 38 yrs old Black Male presents to ER via Unassigned with complaints of Chest Pain. ms3 09:19 38-year-old male with no past medical history states he awoke at 5 AM this morning with ms3 chest pain that was sharp and then turned to pressure. Patient states his discomfort is a 9/10. Patient states he has recently had stomach problems. Patient endorses shortness of breath, nausea. Patient denies vomiting, fevers, chills. Historical: - Allergies: 09:08 PENICILLINS; young; aa5 - PMHx: 09:08 Anxiety; Asthma; GERD; Hypertension; Resolved; Migraines; aa5 - PSHx: 09:08 Cornea transplant L eye; aa5 - Immunization history:: Adult Immunizations unknown. - Social history:: Smoking status: Patient denies any tobacco usage or history of. ROS: 09:19 Constitutional: Negative for fever, and chills. Neck: Negative for injury, pain, and ms3 swelling. 09:19 MS/Extremity: Negative for injury and deformity, Skin: Negative for injury, rash, and discoloration. 09:19 Cardiovascular: Positive for chest pain. 09:19 Respiratory: Positive for shortness of breath. 09:19 Abdomen/GI: Positive for nausea, Negative for abdominal pain, vomiting, diarrhea. 09:19 All other systems are negative. Exam: 09:19 Constitutional: This is a well developed, well nourished patient who is awake, alert, ms3 and in no acute distress. Head/Face: Normocephalic, atraumatic. Neck: Trachea midline, no cervical lymphadenopathy. Supple, full range of motion without nuchal rigidity, or vertebral point tenderness. No Meningismus. Chest/axilla: Normal chest wall appearance and motion. Nontender with no deformity. Cardiovascular: Regular rate and rhythm with a normal S1 and S2. No gallops, murmurs, or rubs. Normal PMI, no JVD. No pulse deficits. Respiratory: Lungs have equal breath sounds bilaterally, clear to auscultation and percussion. No rales, rhonchi or wheezes noted. No increased work of breathing, no retractions or nasal flaring. Abdomen/GI: Soft, non-tender, with normal bowel sounds. No distension or tympany. No guarding or rebound. No evidence of tenderness throughout. Skin: Warm, dry with normal turgor. Normal color with no rashes, no lesions, and no evidence of cellulitis. MS/ Extremity: Pulses equal, no cyanosis. Neurovascular intact. Full, normal range of motion. 10:04 ECG was reviewed by the Attending Physician. ms3 Vital Signs: 09:08 BP 154 / 100; Pulse 99; Resp 20 S; Temp 98.8(O); Pulse Ox 98% on R/A; Weight 111.13 kg aa5 (R); Height 5 ft. 7 in. (R); Pain 9/10; 10:03 BP 135 / 87; Pulse 74; Resp 17; Pulse Ox 97% on R/A; Pain 9/10; me1 10:29 BP 113 / 63; Pulse 75; Resp 15; Pulse Ox 99% on R/A; me1 09:08 Body Mass Index 38.37 (111.13 kg, 170.18 cm) aa5 09:08 Pain Scale: Adult aa5 10:03 Pain Scale: Adult me1 MDM: 09:08 Patient medically screened. ms3 09:19 Differential diagnosis: abnormal EKG, acute myocardial infarction, pulmonary embolus. ms3 10:23 HEART Score: History: Slightly Suspicious (0), ECG: Non specific repolarization ms3 disturbance / LBTB / PM (1), Age: < or = 45 years (0), Risk Factors: No Risk Factors Known (0), Troponin: < or = 1 x Normal Limit (0), Total Score = 1. Data reviewed: vital signs, nurses notes, lab test result(s), EKG, radiologic studies, and as a result, I will discharge patient. Independent interpretation of the following test(s) in the Emergency Department EKG: See my EKG interpretation above senior communications specialist: rate is 77 beats/min, Rhythm is normal sinus rhythm, regular. Counseling: I had a detailed discussion with the patient and/or guardian regarding: the historical points, exam findings, and any diagnostic results supporting the discharge/admit diagnosis, lab results, radiology results, the need for outpatient follow up. Response to treatment: the patient's symptoms have mildly improved after treatment, and as a result, I will discharge patient. Special discussion: Based on the patient's history, exam, and Dx evaluation, there is no indication for emergent intervention or inpatient Tx. It is understood by the patient/guardian that if the Sx's persist or worsen they need to return immediately for re-evaluation. 01/27 09:13 Order name: Basic Metabolic Panel; Complete Time: 10:12 ms3 01/27 09:13 Order name: CBC with Diff; Complete Time: 10:3 01/27 09:13 Order name: Troponin HS; Complete Time: 10:3 01/27 09:13 Order name: XRAY Chest (1 view); Complete Time: 10:3 01/27 09:13 Order name: EKG; Complete Time: 09:3 01/27 09:13 Order name: Cardiac monitoring; Complete Time: :3 01/27 09:13 Order name: EKG - Nurse/Tech; Complete Time: :3 01/27 09:13 Order name: IV Saline Lock; Complete Time: :40 3 01/27 09:13 Order name: Labs collected and sent; Complete Time: :01/27 09:13 Order name: O2 Per Protocol; Complete Time: :3 01/27 09:13 Order name: O2 Sat Monitoring; Complete Time: : ms3 EC:04 Rate is 77 beats/min. Rhythm is regular. QRS [place] is Normal. VA interval is normal. QRS ms3 interval is normal. Clinical impression: NSR w/ Non-specific ST/T Changes. Interpreted by me. Reviewed by me. Administered Medications: No medications were administered Disposition Summary: 01/27/23 10:23 Discharge Ordered Location: Home ms3 Condition: Stable ms3 Diagnosis - Chest pain, unspecified ms3 - Anemia, unspecified ms3 Followup: ms3 - With: Navin Longo DO - When: 2 - 3 days - Reason: Recheck today's complaints Discharge Instructions: - Discharge Summary Sheet ms3 - Anemia ms3 - Nonspecific Chest Pain, Adult ms3 Forms: - Work release form iw - Medication Reconciliation Form ms3 - Thank You Letter ms3 - Antibiotic Education ms3 - Prescription Opioid Use ms3 - Patient Portal Instructions ms3 Signatures: Dispatcher [employer] Kanwal Mcwilliams, RN RN aa5 Jose Francisco Wheeler, DO ms3 Ludivina Naranjo RN RN me1
[2023-01-27 11:10] VITALS: TEMP 98.8
[2023-01-27 11:21] VITALS: BP 113/63; O2SAT 99
--- NOTE | 2023-01-28 13:28 | EKG ---
Test Date: 2023-01-27 Test Time: 09:24:26 Fingernail Technician: MEASUREMENT RESULTS: Intervals: Rate: 77 LA: 144 QRSD: 90 QT: 350 QTc: 396 Fleming: P: 55 LA: 144 QRS: 37 T: 24 INTERPRETIVE STATEMENTS: Normal sinus rhythm Nonspecific T wave abnormality Abnormal ECG Compared to ECG 09/03/2022 06:16:40 No significant changes Electronically Signed On 01-28-23 13:27:09 CDT by Silvano Victoria
== END 2023-01-27 10:57 | disposition home or self-care (01) ==
LOC: ER 09:01
DX: R07.89 Other chest pain (principal); D64.9 Anemia, unspecified; I10 Essential (primary) hypertension; Z88.0 Allergy status to penicillin
CPT/HCPCS: 36415; 71045; 80048; 84484; 85025; 93005; 99285

== ENCOUNTER 2023-01-30 20:33 | Observation (INO) | payer OTHER ==
[2023-01-30 21:05] LABS: Hematocrit 38.6 % (39.6-49.0); Lymphocytes % 30.7 % (15.3-44.8); MCV 74.9 fL (80-100); MPV 7.3 fL (7.6-11.3); RBC Red Blood Cell Count 5.16 M/uL (4.33-5.43)
[2023-01-30 21:08] LABS: Protime INR 1.08
[2023-01-30] MEDS ORDERED: NA CHLORIDE 0.9% 1,000 ML ONE (21:08)
[2023-01-30] MEDS ORDERED: MORPHINE 4 MG/ML SYR ONE (21:08)
[2023-01-30] MEDS ORDERED: ONDANSETRON 4 MG/2 ML VIAL ONE (21:08)
[2023-01-30 21:25] LABS: ALT/SGPT 36 U/L (16-61); Albumin 3.5 g/dL (3.4-5.0); Alkaline Phosphatase 74 U/L (45-117); BUN Blood Urea Nitrogen 16 mg/dL (7-18); Bicarbonate 26 mEq/L (21-32); Bilirubin Total 0.4 mg/dL (0.2-1.0); Glomerular Filtration Rate 91 ml/min (=/>90); Glucose Level 162 mg/dL (74-106); Protein, Total 7.8 g/dL (6.4-8.2); Sodium Level 135 mEq/L (136-145); Troponin High Sensitivity 3.5 pg/mL (<58.9)
[2023-01-30 21:30] LABS: AST/SGOT 28 U/L (15-37); Bilirubin Direct < 0.1 mg/dL (0-0.2); Bilirubin Indirect, Calculated ND mg/dL (0.2-0.8); NT PRO-BNP < 5 pg/mL (<125)
[2023-01-30 21:31] LABS: Magnesium 2.1 mg/dL (1.6-2.4)
--- NOTE | 2023-01-30 22:02 | RAD REPORT ---
EXAM DESCRIPTION: RAD - Chest Single View - 01/30/2023 9:49 pm CLINICAL HISTORY: CHEST PAIN COMPARISON: Chest Single View dated 01/27/2023; Chest Pa And Lat (2 Views) dated 10/26/2022; Chest Sin gle View dated 05/29/2022; Chest Single View dated 05/13/2022 FINDINGS: Lines: None. Lungs: No evidence of edema or pneumonia. Pleural: No significant pleural effusions or pneumothorax. Cardiac: The heart size is within normal limits. Mediastinum: Within normal limits. Bones: No acute fractures. Other: None IMPRESSION: No acute cardiopulmonary disease.
--- NOTE | 2023-01-30 22:18 | RAD REPORT ---
EXAM DESCRIPTION: CTAngio Aorta For Dissection - 01/30/2023 10:05 pm CLINICAL HISTORY: chest pain and syncope COMPARISON: Abdomen Pelvis W Contrast dated 09/03/2022; Abdomen Pelvis W Contrast dated 01/17/2023 TECHNIQUE: CTA of the abdomen and pelvis was performed. 3D maximum intensity pixel (MIP) reconstructions were cr eated All CT scans are performed using dose optimization technique as appropriate and may include automated exposure control or mA/KV adjustment according to patient size. FINDINGS: Thorax: Chest Wall: No abnormal mass Lungs: No acute abnormality. Pleura: No effusions or pneumothorax. Jossy/Mediastinum: No lymphadenopathy. Aorta/Pulmonary Arteries: Unremarkable Heart: Normal size. Abdomen/Pelvis: Liver: No acute abnormality or suspicious lesions. Biliary: No biliary ductal dilatation. Stomach: No significant focal abnormality. Duodenum: No significant focal abnormality. Pancreas: No significant abnormality. Spleen: No significant abnormality. Adrenal: No suspicious lesions. Kidney/ureter: No hydronephrosis. No renal calculi. Retroperitoneum: No retroperitoneal adenopathy. Vascular: No aneurysm. Bowel: No significant focal abnormality. Peritoneum: No ascites or free air. Bladder: Grossly unremarkable. Reproductive: No adnexal masses. Bones: No acute fracture. Other: n/a IMPRESSION: No acute findings within the chest, abdomen, or pelvis. No aortic aneurysm or dissection .
[2023-01-30] MEDS ORDERED: NITROGLYCERIN 0.4 MG/TAB SL PRN (23:40)
[2023-01-30] MEDS ORDERED: ZOLPIDEM TARTRATE 5 MG TABLET PO PRN (23:42)
--- NOTE | 2023-01-30 23:42 | P.HP ---
Certification for Inpatient Patient admitted to: Observation With expected LOS: <2 Midnights Patient will require the following post-hospital care: None Practitioner: I am a practitioner with admitting privileges, knowledge of patient current condition, hospital course, and medical plan of care. Services: Services provided to patient in accordance with Admission requirements found in Title 42 Section 412.3 of the Code of Federal Regulations Patient History Date of Service: 01/31/23 Reason for admission: Chest pain History of Present Illness: 38-year-old male with a past history of past medical history of anxiety, asthma, GERD, hypertension not on any medications presents to the emergency room for chest pain that is substernal, reports radiates to the left neck and left arm. It is constant 10 out of 10. He reported syncopal episode with lightheadedness. He reported chest pain started at 4 PM is constant. He reports family history of father with heart disease PA at 55. Plan to admit for chest pain rule out PA, echo in the a.m.,we asked internal medicine team to admit patient for additional work-up inside the hospital. However concern for coronary artery disease is low. EKG sinus rhythm Normal Sinus Rhythm. QRS [place] is Normal. MD interval is normal. QRS interval is normal. QT interval is normal. T waves are Normal. No ST changes noted. Troponin normal, CT dissection IMPRESSION: No acute findings within the chest, abdomen, or pelvis. No aortic aneurysm or dissection. Allergies Penicillins Allergy (Verified 11/05/21 20:25) Unknown Home Medications: NK [No Home Meds] 01/12/17 - Past Medical/Surgical History Diabetic: No -: Hypertension -: Corneal transplant - Family History Father -: Heart disease (Father of heart attack at the age of 55) - Social History Smoking Status: Never smoker Alcohol use: Yes CD- Drugs: No Review of Systems 10-point ROS is otherwise unremarkable Physical Examination - Physical Exam General: Alert, In no apparent distress, Oriented x3 HEENT: Atraumatic, Normocephalic, PERRLA Neck: Supple, 2+ carotid pulse no bruit, JVD not distended Respiratory: Clear to auscultation bilaterally, Normal air movement Cardiovascular: No edema, Normal pulses, Regular rate/rhythm, Normal S1 S2 Capillary refill: >2 Seconds Gastrointestinal: Normal bowel sounds, Soft and benign Musculoskeletal: No clubbing, No swelling Integumentary: No rashes, No breakdown Neurological: Normal speech, Normal strength at 5/5 x4 extr, Cranial nerves 3-12 intact - Studies Laboratory Data (last 24 hrs) 01/30/23 01/30/23 01/30/23 20:55 20:55 20:55 WBC 9.70 Hgb 12.1 L Hct 38.6 L Plt Count 269 PT 11.9 INR 1.08 Sodium 135 L Potassium 4.0 BUN 16 Creatinine 1.08 Glucose 162 H Magnesium 2.1 Total Bilirubin 0.4 AST 28 ALT 36 Alkaline Phosphatase 74 Assessment and Plan - Plan Assessment Plan Chest pain rule out PA Essential HTN Anxiety-undiagnosed, uncontrolled GERD DVT proplx Assessment Plan Chest pain rule out PA Cardiology consult echo ordered for the a.m. consider cardiac stress test due to frequent ER visits Telemetry, as needed analgesics, EKG sinus rhythm Normal Sinus Rhythm. QRS [place] is Normal. MD interval is normal. QRS interval is normal. QT interval is normal. T waves are Normal. No ST changes noted. Troponin normal, CT dissection IMPRESSION: No acute findings within the chest, abdomen, or pelvis. No aortic aneurysm or dissection. Essential HTN As needed antihypertensives GERD PPI Anxiety-undiagnosed, uncontrolled As needed antianxiety medications DVT proplx Lovenox Full code Diet n.p.o. after midnight Discharge Plan: Home Plan to discharge in: 24 Hours - Advance Directives Does patient have a Living Will: No Does patient have a Durable POA for Healthcare: No - Code Status/Comfort Care Code Status: Full Code Physician Review: Patient Assessed, Agree with Above Assessment and Plan Critical Care: No Time Spent Managing Pts Care (In Minutes): 50
--- NOTE | 2023-01-30 23:42 | ER ---
Nurse's Notes [facility] Name: Holden Morris Age: 38 yrs Sex: Male : 1985 Arrival Date: 01/30/2023 Time: 20:33 Bed 5 Private MD: Diagnosis: Chest pain, unspecified;Atypical chest pain, rule out ACS;Syncope and collapse Presentation: 01/30 20:36 Chief complaint: EMS states: called out for chest pain. pt has had cp for 4 days and as6 with worsening today. Coronavirus screen: At this time, the client does not indicate any symptoms associated with coronavirus-19. Ebola Screen: No symptoms or risks identified at this time. Initial Sepsis Screen: Does the patient meet any 2 criteria? No. Patient's initial sepsis screen is negative. Does the patient have a suspected source of infection? No. Patient's initial sepsis screen is negative. Risk Assessment: Do you want to hurt yourself or someone else? Patient reports no desire to harm self or others. Onset of symptoms was January 30, 2023. 20:36 Acuity: STONE 3 as6 20:36 Method Of Arrival: EMS: [facility] as6 Triage Assessment: 20:34 General: Appears in no apparent distress. Behavior is calm, cooperative. Pain: as6 Complains of pain in chest. Historical: - Allergies: 20:36 PENICILLINS; young; as6 - PMHx: 20:36 Anxiety; Asthma; GERD; Hypertension; Resolved; Migraines; as6 - PSHx: 20:36 Cornea transplant L eye; as6 - Immunization history:: Client reports receiving the 2nd dose of the Covid vaccine, moderna. - Social history:: Smoking status: Patient denies any tobacco usage or history of. - Family history:: not pertinent. Screenin:40 [facility] ED Fall Risk Assessment (Adult) History of falling in the last 3 months, kd3 including since admission No falls in past 3 months (0 pts) Confusion or Disorientation No (0 pts) Intoxicated or Sedated No (0 pts) Impaired Gait No (0 pts) Mobility Assist Device Used No (0 pt) Altered Elimination No (0 pt) Score/Fall Risk Level 0 - 2 = Low Risk Maintained a safe environment. Abuse screen: Denies threats or abuse. Denies injuries from another. Nutritional screening: No deficits noted. Tuberculosis screening: No symptoms or risk factors identified. Assessment: 21:40 General: Appears in no apparent distress. Behavior is calm, cooperative. Pain: kd3 Complains of pain in chest. Neuro: Level of Consciousness is awake, alert, obeys commands, Oriented to person, place, time, situation. Cardiovascular: Patient's skin is warm and dry. Respiratory: Airway is patent Trachea midline Respiratory effort is even, unlabored, Respiratory pattern is regular, symmetrical. Vital Signs: 20:34 BP 118 / 71; Pulse 86; Resp 18 S; Temp 98(TE); Pulse Ox 98% on R/A; Weight 111.13 kg as6 (R); Height 5 ft. 9 in. (R); Pain 10/10; 21:41 Pulse 77; Resp 18; Pulse Ox 98% on R/A; kd3 22:41 Pulse 75; Resp 16 S; Pulse Ox 99% on R/A; kd3 23:11 BP 109 / 72; Pulse 84; Resp 16; Pulse Ox 98% on R/A; kd3 20:34 Body Mass Index 36.18 (111.13 kg, 175.26 cm) as6 20:34 Pain Scale: Adult as6 Malina Coma Score: 23:39 Eye Response: spontaneous(4). Motor Response: obeys commands(6). Verbal Response: sp4 oriented(5). Total: 15. ED Course: 20:34 Patient arrived in ED. as6 20:34 Arthur Gomez MD is Attending Physician. sp4 20:34 Arm band placed on. as6 20:38 Triage completed. as6 20:50 Shae Vega, NICOL is Primary Nurse. kd3 21:07 Basic Metabolic Panel Sent. kd3 21:07 CBC with Diff Sent. kd3 21:07 LFT's Sent. kd3 21:07 Magnesium Sent. kd3 21:07 NT PRO-BNP Sent. kd3 21:07 PT-INR Sent. kd3 21:40 Patient has correct armband on for positive identification. Provided Education on: . kd3 21:51 XRAY Chest (1 view) In Process Unspecified. EDMS 22:05 CT Aorta for Dissection In Process Unspecified. EDMS 23:41 Paige Diaz MD is Hospitalizing Provider. sp4 01/31 00:47 Urine Drug Screen Sent. kd3 00:48 No provider procedures requiring assistance completed. Patient admitted, IV remains in kd3 place. Administered Medications: 01/30 21:02 Drug: morphine IVP or IV 4 mg Route: IVP; Infused Over: 4 mins; Site: left antecubital; kd3 01/31 00:48 Follow up: Response: No adverse reaction; Pain is decreased kd3 01/30 21:02 Drug: Ondansetron IVP 4 mg Route: IVP; Site: left antecubital; kd3 01/31 00:47 Follow up: Response: No adverse reaction kd3 01/30 21:02 Drug: NS 0.9% IV 1000 ml Route: IV; Rate: 1 bolus; Site: left antecubital; kd3 01/31 00:48 Follow up: IV Status: Completed infusion; IV Intake: 1000ml kd3 01/30 23:52 Not Given (given FRAME HAND): Aspirin PO Chewable Tablet 324 mg PO once; 81 mg tablets x 4 as6 23:55 Drug: Ketorolac IVP 30 mg Route: IVP; Site: left antecubital; kd3 01/31 00:47 Follow up: Response: No adverse reaction kd3 01/30 23:56 Drug: Diazepam PO 5 mg Route: PO; kd3 01/31 00:47 Follow up: Response: No adverse reaction kd3 Medication: 01/30 21:40 VIS not applicable for this client. kd3 Intake: 01/31 00:48 IV: 1000ml; Total: 1000ml. kd3 Outcome: 01/30 23:42 Decision to Hospitalize by Provider. sp4 01/31 00:48 Patient left the ED. kd3 00:48 Admitted to Med/surg kd3 00:48 Condition: stable 00:48 Discharge instructions given to patient, Instructed on the need for admit, Demonstrated understanding of instructions. Signatures: Dispatcher [employer] EDMS Dhruv Guillen RN RN as6 Shae Vega RN RN kd3 Arthur Gomez MD MD sp4
--- NOTE | 2023-01-30 23:43 | EDPHYS ---
Physician Documentation [facility] Name: Holden Morris Age: 38 yrs Sex: Male : 1985 Arrival Date: 01/30/2023 Time: 20:33 Bed 5 Private MD: ED Physician Arthur Gomez HPI: 01/30 23:27 This 38 yrs old Black Male presents to ER via EMS with complaints of chest pain . sp4 23:27 58-year-old male presents with complaint of stabbing midsternal chest pain starting sp4 this morning on awakening. Patient reported left arm numbness and a syncopal episode at home. Patient presented on 01/17/2023 for nausea and vomiting and presented again on 01/27/2023 for chest pain. At that time patient had negative work-up. Was discharged home on 01/27/2023. Historical: - Allergies: 20:36 PENICILLINS; young; as6 - PMHx: 20:36 Anxiety; Asthma; GERD; Hypertension; Resolved; Migraines; as6 - PSHx: 20:36 Cornea transplant L eye; as6 - Immunization history:: Client reports receiving the 2nd dose of the Covid vaccine, moderna. - Social history:: Smoking status: Patient denies any tobacco usage or history of. - Family history:: not pertinent. ROS: 23:27 Constitutional: Negative for fever, chills, and weight loss, Cardiovascular: Positive sp4 for chest pain, left arm numbness, positive for syncope. 23:27 All other systems are negative. Exam: 23:27 Constitutional: This is a well developed, well nourished patient who is awake, alert, sp4 and in no acute distress. Head/Face: Normocephalic, atraumatic. Eyes: Pupils equal round and reactive to light, extra-ocular motions intact. Lids and lashes normal. Conjunctiva and sclera are not injected. Cornea within normal limits. Periorbital areas with no swelling, redness, or edema. ENT: Nares patent. No nasal discharge, no septal abnormalities noted. Tympanic membranes are normal and external auditory canals are clear. Oropharynx with no redness, swelling, or masses, exudates, or evidence of obstruction, uvula midline. Mucous membranes moist. Neck: Trachea midline, no thyromegaly or masses palpated, and no cervical lymphadenopathy. Supple, full range of motion without nuchal rigidity, or vertebral point tenderness. Chest/axilla: Normal chest wall appearance and motion. Nontender with no deformity. No lesions are appreciated. Cardiovascular: Regular rate and rhythm with a normal S1 and S2. No gallops, murmurs, or rubs. Normal PMI, no JVD. No pulse deficits. Respiratory: Lungs have equal breath sounds bilaterally, clear to auscultation and percussion. No rales, rhonchi or wheezes noted. No increased work of breathing, no retractions or nasal flaring. Abdomen/GI: Soft, non-tender, with normal bowel sounds. No distension or tympany. No guarding or rebound. No evidence of tenderness throughout. Back: No spinal tenderness. No costovertebral tenderness. Skin: Warm, dry with normal turgor. Normal color with no rashes, no lesions, and no evidence of cellulitis. MS/ Extremity: Pulses equal, no cyanosis. Neurovascular intact. Full, normal range of motion. Neuro: Awake and alert, GCS 15, oriented to person, place, time, and situation. Cranial nerves II-XII grossly intact. Motor strength 5/5 in all extremities. Sensory grossly intact. Psych: Awake, alert, with orientation to person, place and time. Behavior, mood, and affect are within normal limits 23:34 ECG was reviewed by the Attending Physician. Patient's EKG reveals sinus rhythm at rate sp4 of 80, no ST elevation or depression, no ectopy, no acute abnormality EKG time 20:48 Vital Signs: 20:34 BP 118 / 71; Pulse 86; Resp 18 S; Temp 98(TE); Pulse Ox 98% on R/A; Weight 111.13 kg as6 (R); Height 5 ft. 9 in. (R); Pain 10/10; 21:41 Pulse 77; Resp 18; Pulse Ox 98% on R/A; kd3 22:41 Pulse 75; Resp 16 S; Pulse Ox 99% on R/A; kd3 23:11 BP 109 / 72; Pulse 84; Resp 16; Pulse Ox 98% on R/A; kd3 20:34 Body Mass Index 36.18 (111.13 kg, 175.26 cm) as6 20:34 Pain Scale: Adult as6 Malina Coma Score: 23:39 Eye Response: spontaneous(4). Motor Response: obeys commands(6). Verbal Response: sp4 oriented(5). Total: 15. MDM: 20:35 Patient medically screened. sp4 23:38 Differential Diagnosis altered mental status, Stable angina, anxiety, musculoskeletal sp4 pain, aortic abnormality. Data reviewed: vital signs, nurses notes, EMS record, old medical records, lab test result(s), cardiac enzymes, CBC, electrolytes, hepatic panel, urinalysis, urine drug screen. Consideration of Admission/Observation Patient was admitted/placed on observation. Escalation of care including admission/observation considered. 23:39 Data reviewed: EKG, radiologic studies, CT scan, plain films. Management of patient was sp4 discussed with the following: Hospitalist: Discussed with admitting hospitalist . ED course: Patient states he angiography for aortic problems is negative today. Sign of aortic problems. Work-up at this time is unremarkable. Troponin negative. EKG is normal. Since this is patient's third visit this month for chest pain related complaints we asked internal medicine team to admit patient for additional work-up inside the hospital. However concern for coronary artery disease is low, . 01/30 20:34 Order name: Basic Metabolic Panel; Complete Time: 23:18 sp4 01/30 20:34 Order name: CBC with Diff; Complete Time: 23:18 sp4 01/30 20:34 Order name: LFT's; Complete Time: 23:18 sp4 01/30 20:34 Order name: Magnesium; Complete Time: 23:18 sp4 01/30 20:34 Order name: NT PRO-BNP; Complete Time: 23:18 sp4 01/30 20:34 Order name: PT-INR; Complete Time: 23:18 sp4 01/30 20:34 Order name: Troponin HS; Complete Time: 23:18 sp4 01/30 23:34 Order name: Troponin High Sensitivity sp4 01/30 23:39 Order name: Urine Drug Screen sp4 01/30 20:34 Order name: XRAY Chest (1 view); Complete Time: 23:18 sp4 01/30 20:35 Order name: CT Aorta for Dissection; Complete Time: 23:18 sp4 01/30 20:34 Order name: EKG; Complete Time: 20:35 sp4 01/30 20:34 Order name: Cardiac monitoring; Complete Time: 21: sp4 01/30 20:34 Order name: EKG - Nurse/Tech; Complete Time: 20:50 sp4 01/30 20:34 Order name: IV Saline Lock; Complete Time: 21: sp4 01/30 20:34 Order name: Labs collected and sent; Complete Time: 21: sp4 01/30 20:34 Order name: O2 Per Protocol; Complete Time: : sp4 01/30 20:34 Order name: O2 Sat Monitoring; Complete Time: 21: sp4 EC:34 Rate is 80 beats/min. Rhythm is regular, Normal Sinus Rhythm. QRS [place] is Normal. [place] sp4 interval is normal. QRS interval is normal. QT interval is normal. T waves are Normal. No ST changes noted. Clinical impression: Normal ECG. Interpreted by me. 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): Aspirin PO Chewable Tablet 324 mg PO once; 81 mg tablets x 4 as6 23:55 Drug: Ketorolac IVP 30 mg Route: IVP; Site: left antecubital; 01/31 00:47 Follow up: Response: No adverse reaction 01/30 23:56 Drug: Diazepam PO 5 mg Route: PO; 01/31 00:47 Follow up: Response: No adverse reaction 3 Disposition Summary: 01/30/23 23:42 Hospitalization Ordered Hospitalization Status: Observation sp4 Provider: Paige Diaz Location: Telemetry/MedSur (observation) sp4 Condition: Stable sp4 Problem: new sp4 Symptoms: have improved sp4 Bed/Room Type: Standard sp4 Room Assignment: 405(01/30/23 23:47) mw Diagnosis - Chest pain, unspecified sp4 - Atypical chest pain, rule out ACS sp4 - Syncope and collapse sp4 Forms: - Medication Reconciliation Form sp4 - SBAR form sp4 Signatures: Dispatcher [employer] EDRhonda Villarreal RN RN mw Dhruv Guillen RN RN as6 Shae Vega RN RN kd3 Arthur Gomez MD MD sp4 Corrections: (The following items were deleted from the chart) 01/30 23:47 23:42 sp4 mw
[2023-01-30] MEDS ORDERED: ASPIRIN 81 MG CHEWABLE TABLET ONE (23:57)
[2023-01-30] MEDS ORDERED: KETOROLAC 30 MG/ML INJ ONE (23:58)
[2023-01-30] MEDS ORDERED: DIAZEPAM 5 MG TABLET ONE (23:58)
[2023-01-31 00:37] VITALS: BMI 36.1
[2023-01-31 00:50] LABS: Barbiturates NEGATIVE (NEGATIVE); Benzodiazepines NEGATIVE (NEGATIVE); Cocaine NEGATIVE (NEGATIVE); METHAMPHETAM NEGATIVE (NEGATIVE); Methadone NEGATIVE (NEGATIVE); Opiates POSITIVE (NEGATIVE); Phencyclidine NEGATIVE (NEGATIVE); THC Cannibis NEGATIVE (NEGATIVE)
[2023-01-31 01:10] VITALS: O2SAT 98
[2023-01-31] MEDS ORDERED: ONDANSETRON 4 MG/2 ML VIAL IV PRN (03:00)
[2023-01-31 04:37] LABS: Absolute Lymphocytes (CBC) 2.8 K/uL (0.7-4.9); Hematocrit 34.9 % (39.6-49.0); Lymphocytes % 38.2 % (15.3-44.8); MCV 74.8 fL (80-100); MPV 7.6 fL (7.6-11.3); RBC Red Blood Cell Count 4.66 M/uL (4.33-5.43)
[2023-01-31 04:48] LABS: Magnesium 2.2 mg/dL (1.6-2.4); Potassium 4.4 mEq/L (3.5-5.1)
[2023-01-31] MEDS: MORPHINE 2 MG/ML SYR IV PRN ×3 (07:56→14:57)
[2023-01-31] MEDS ORDERED: ENOXAPARIN 40 MG/0.4 ML SQ SCH (09:00)
[2023-01-31] MEDS ORDERED: ASPIRIN 325 MG TAB PO SCH (09:00)
[2023-01-31] MEDS ORDERED: REGADENOSON 0.4 MG/5 ML SYR IV ONE (09:55)
[2023-01-31] MEDS ORDERED: dexAMETHasone 4 MG/ML VIAL IV ONE (11:04)
--- NOTE | 2023-01-31 12:40 | RAD REPORT ---
EXAM DESCRIPTION: NM - Rest Stress Cardiac Imaging - 01/31/2023 12:22 pm CLINICAL HISTORY: Chest pain. COMPARISON: None. TECHNIQUE: The patient was administered 10.5 mCi of Tc 99m Sestamibi prior to resting SPECT imaging of the heart. The patient was then administered 30. 8 mCi of Tc 99m Sestamibi following exercise or p harmacologic stress. Multiplanar SPECT images were reviewed. FINDINGS: A small area of diminished radiotracer uptake involves the anterior left ventricular myoca rdium on rest and stress sequences. The left ventricular ejection fraction equals 58% IMPRESSION: Small apparent fixed perfusion defect anterior left ventricular myocardium probably atte nuation from overlying soft tissue. An infarct can also have this appearance There is no evidence of stress-induced ischemia
[2023-01-31] MEDS ORDERED: clonazePAM 0.5 MG TAB PO SCH (14:00)
--- NOTE | 2023-01-31 14:48 | P.DS ---
Discharge Date: 01/31/23 Disposition: ROUTINE DISCHARGE Reason for Admission: Chest pain Consultations: Cardiology Brief History of Present Illness: Pt is a 38-year-old male with a past history of past medical history of anxiety, asthma, GERD, hypertension not on any medications presents to the emergency room for chest pain that is substernal, reports radiates to the left neck and left arm. It is constant 10 out of 10. He reported syncopal episode with lightheadedness. He reported chest pain started at 4 PM is constant. He reports family history of father with heart disease [place] at 55. Plan to admit for chest pain rule out [place], echo in the a.m.,we asked internal medicine team to admit patient for additional work-up inside the hospital. However concern for coronary artery disease is low. EKG sinus rhythm Normal Sinus Rhythm. QRS [place] is Normal. [place] interval is normal. QRS interval is normal. QT interval is normal. T waves are Normal. No ST changes noted. Troponin normal, CT dissection IMPRESSION: No acute findings within the chest, abdomen, or pelvis. No aortic aneurysm or dissection. Hospital Course: Patient is doing well during hospitalization. Stress test was negative. We will check iron studies, hemoglobin electrophoresis, and inflammatory markers. Patient is stable for discharge with outpatient follow-up. Vital Signs/Physical Exam: Temp Pulse Resp BP Pulse Ox 97.2 F 70 18 133/85 98 01/31/23 12:00 01/31/23 12:00 01/31/23 12:00 01/31/23 12:00 01/31/23 12:00 General: Alert, In no apparent distress, Oriented x3 Laboratory Data at Discharge: WBC 7.30 thou/uL (4.3-10.9) 01/31/23 04:02 Hgb 11.1 g/dL (13.6-17.9) L D 01/31/23 04:02 Hct 34.9 % (39.6-49.0) L 01/31/23 04:02 Plt Count 249 thou/uL (152-406) 01/31/23 04:02 PT 11.9 SECONDS (9.5-12.5) 01/30/23 20:55 INR 1.08 01/30/23 20:55 Sodium 136 mEq/L (136-145) 01/31/23 04:02 Potassium 4.4 mEq/L (3.5-5.1) 01/31/23 04:02 BUN 16 mg/dL (7-18) 01/31/23 04:02 Creatinine 1.02 mg/dL (0.70-1.30) 01/31/23 04:02 Glucose 137 mg/dL (74-106) H 01/31/23 04:02 Magnesium 2.2 mg/dL (1.6-2.4) 01/31/23 04:02 Total Bilirubin 0.4 mg/dL (0.2-1.0) 01/30/23 20:55 AST 28 U/L (15-37) 01/30/23 20:55 ALT 36 U/L (16-61) 01/30/23 20:55 Alkaline Phosphatase 74 U/L (45-117) 01/30/23 20:55 Triglycerides 231 mg/dL (<150) H 01/31/23 04:02 Cholesterol 211 mg/dL (<200) H 01/31/23 04:02 HDL Cholesterol 35 mg/dL (40-60) L 01/31/23 04:02 Cholesterol/HDL Ratio 6.03 01/31/23 04:02 Home Medications: Atorvastatin Calcium [Lipitor] 40 mg PO BEDTIME #30 tab 01/31/23 Hydrocodone 10/APAP 325 [[place] 10/325] 1 tab PO Q6H PRN #30 tab 01/31/23 clonazePAM [Klonopin] 0.5 mg PO BID PRN #30 tab 01/31/23 predniSONE [Deltasone] 20 mg PO DAILY #5 tab 01/31/23 New Medications: clonazePAM [Klonopin] 0.5 mg PO BID PRN #30 tab PRN Reason: Anxiety Atorvastatin Calcium [Lipitor] 40 mg PO BEDTIME #30 tab Hydrocodone 10/APAP 325 [[place] 10/325] 1 tab PO Q6H PRN #30 tab PRN Reason: Pain predniSONE [Deltasone] 20 mg PO DAILY #5 tab Physician Discharge Instructions: -DC IV and DC home -Follow-up with PCP in 1 to 2 weeks -Please call Dr. Diaz at [phone] if any questions regarding hospital stay -Please call nursing station at [phone] if any nursing or medication questions -Return to the emergency room if symptoms worsen Diet: Regular Activity: Fall precautions Time spent managing pt's care (in minutes): 35
[2023-01-31 16:36] LABS: RBC Red Blood Cell Count 5.28 M/uL (4.33-5.43)
[2023-01-31 17:02] VITALS: BP 127/59; TEMP 97.3
--- NOTE | 2023-01-31 18:50 | EKG ---
Test Date: 2023-01-30 Test Time: 20:48:49 Chain Offbearer: KEVIN MEASUREMENT RESULTS: Intervals: Rate: 80 HI: 140 QRSD: 82 QT: 346 QTc: 399 [place]: P: 93 HI: 140 QRS: 68 T: 66 INTERPRETIVE STATEMENTS: Normal sinus rhythm Nonspecific T wave abnormality Abnormal ECG Compared to ECG 01/27/2023 09:24:26 No significant changes Electronically Signed On 01-31-23 18:48:16 CDT by Silvano Victoria
[2023-01-31 19:53] LABS: C-Reactive Protein 4.32 mg/L (<3.00)
[2023-01-31] MEDS ORDERED: ATORVASTATIN 40 MG TAB PO SCH (21:00)
--- NOTE | 2023-01-31 23:23 | CON ---
Date of Consultation: 01/31/2023 Reason For Consultation: Chest pain. History Of Present Illness: A 38-year-old male with history of anxiety, acid reflux, hypertension, a sthma, presented to the emergency room with chest pain, substernal, radiates to left arm, severe, con stant, started yesterday and gets better and gets intense again. No exertional chest pain. Otherwis e, no other medical complaints or history. Past Medical History: Hypertension, acid reflux, asthma, anxiety disorder. Medications: Refer to reconciliation sheet for detailed list. Allergies: PENICILLIN. Family History: No premature coronary artery disease or cancer. Social History: He does not smoke or drink. Does not use drugs. Review of Systems: All systems reviewed are negative except for mentioned in HPI. Physical Examination: Vital Signs: Reviewed. Head and Neck: Pupils are equal, reactive to light. Intact eye movements. No JVD. No cervical lym phadenopathy. Neck: Supple. Thyroid is not enlarged. Lungs: Clear to auscultation bilaterally. No rhonchi, wheezing, or crackles. No accessory muscle u se. Heart: Regular rate and rhythm. No extra sounds. Abdomen: Soft, nontender. Bowel sounds positive. No organomegaly. No masses or hernia. No rigidi ty or rebound. Extremities: No edema, clubbing, or cyanosis. Intact pulses. Skin: No rash. Neuro: Alert, awake, oriented x3. No acute focal deficits appreciated. Investigations: Stress test is negative. Cardiac enzymes are negative. BUN 16, creatinine 1.02, an d hemoglobin is 11.1. Assessment/recommendations: 1.Chest pain. It is atypical. Stress test is negative. Cardiac enzymes are negative. No further cardiac workup is needed. Patient can be released and he can have an echocardiogram done as an outpa tient if it was not done today. 2.Hypertension. Blood pressure is controlled. Continue current management. Cardiology will sign o ff. Patient can be released from cardiac standpoint. SR/MODL Voice ID: [id number] Report ID: [id number]
--- NOTE | 2023-02-01 07:43 | ECHO ---
HEIGHT: 5 ft 9 in WEIGHT: 244 lb 15.995 oz DATE OF STUDY: 01/31/[address]: Silvano Victoria 2-DIMENSIONAL: YES M.MODE: YES DOPPLER: YES COLOR FLOW: YES TDS: NO PORTABLE: YES DEFINITY: NO BUBBLE STUDY: NO DIAGNOSIS: CHEST PAIN CARDIAC HISTORY: CATHERIZATION: NO SURGERY: NO PROSTHETIC VALVE: NO PACEMAKER: NO MEASUREMENTS (cm) DIASTOLIC (NORMALS) SYSTOLIC (NORMALS) IVSd 0.9 (0.6-1.2) LA Diam 2.4 (1.9-4.0) LVEF 67% LVIDd 4.1 (3.5-5.7) LVIDs 2.6 (2.0-3.5) %FS 37% LVPWd 1.0 (0.6-1.2) Ao Diam 2.3 (2.0-3.7) 2 DIMENSIONAL ASSESSMENT: RIGHT ATRIUM: NORMAL LEFT ATRIUM: NORMAL RIGHT VENTRICLE: NORMAL LEFT VENTRICLE: NORMAL TRICUSPID VALVE: MILD TR MITRAL VALVE: MILD MR PULMONIC VALVE: NORMAL AORTIC VALVE: NORMAL PERICARDIAL EFFUSION: NONE AORTIC ROOT: NORMAL LEFT VENTRICULAR WALL MOTION: NORMAL DOPPLER/COLOR FLOW: MILD TRICUSPID AND MITRAL REGURGITATION. COMMENTS: 1. NORMAL LEFT VENTRICULAR EJECTION FRACTION 55-60%. 2. NORMAL WALL MOTION. 3. NORMAL DIASTOLIC FUNCTION. 4. MILD MITRAL REGURGUTATION. 5. MILD TRICUSPID REGURGITATION. TECHNOLOGIST: Fifi ROGER
--- NOTE | 2023-02-01 07:48 | TREADPHA ---
DX: CHEST PAIN Date of Study: 01/31/2023 Ht: 5' 9 " Wt: 244 lb 15.995 oz Consulting Physician: GWYN MEDICATIONS: ASPIRIN, LIPITOR, LOVENOX, NITROSTAT, AMBIEN HISTORY: 38 YEAR OLD MALE WITH COMPLAINTS OF CHEST PAIN. HISTORY OF HYPERTENSION AND FAMILY HISTORY OF CORONARY ARTERY DISEASE. DENIES SMOKING, DRINKING, DRUG USE OR PREVIOUS HEART SURGERIES. PHYSICIAL EXAMINATION: RESTING B.P.: 132/80 RESTING H.R.: 65 RESTING EKG: NORMAL SINUS RHYTHM. PROTOCOL: LEXISCAN EXERCISE TIME: 3:30 B.P. AT PEAK STRESS: 131/69 IMPRESSION: LEXISCAN INJECTED. CARDIOLITE GIVEN PER PROTOCOL. SEE NUCLEAR MEDICINE REPORT. NO SUPRAVENTRICULAR TACHYCARDIA OR VENTRICULAR TACHYCARDIA. NO PREMATURE VENTRICULAR COMPLEXES. NO PREMATURE ATRAIL COMPLEXES. DENIES CHEST PAIN OR SHORTNESS OF BREATH. NO EKG CHANGES WITH LEXISCAN.
== END 2023-01-31 17:50 | disposition home or self-care (01) ==
LOC: ER 20:33 → ERHOLD 23:36 → 4TH 01-31 00:25
PROVIDERS: ADMIT Hospitalist; ATTEND Hospitalist
DX: R07.89 Other chest pain (principal); F41.9 Anxiety disorder, unspecified; J45.909 Unspecified asthma, uncomplicated; K21.9 Gastro-esophageal reflux disease without esophagitis; I10 Essential (primary) hypertension; Z82.49 Family history of ischemic heart disease and other diseases of the circulatory system; Z88.0 Allergy status to penicillin
CPT/HCPCS: 93005; 93017; 93306; 85025 ×2; 80048 ×2; 36415; 83735 ×2; 85610; 85044; 80061; 80076; 83036; 84484 ×5; 82607; 83540; 83880; 80307; 86140; 71275; 74175; 71045; 78452; Q9967; J2785; J1100; J1650; J2270 ×3; J2405; J7030; A9500; 83020; 85014; 85018; 85041

== ENCOUNTER 2023-02-02 21:46 | Emergency (ER) | payer OTHER ==
[2023-02-02 22:44] LABS: Absolute Lymphocytes (CBC) 3.4 K/uL (0.7-4.9); Hematocrit 39.8 % (39.6-49.0); Lymphocytes % 28.3 % (15.3-44.8); MCV 74.8 fL (80-100); MPV 7.8 fL (7.6-11.3); RBC Red Blood Cell Count 5.32 M/uL (4.33-5.43)
[2023-02-02] MEDS ORDERED: HYDROCODONE/APAP 10/325 TAB ONE (22:54)
[2023-02-02 23:02] LABS: ALT/SGPT 33 U/L (16-61); AST/SGOT 16 U/L (15-37); Albumin 3.8 g/dL (3.4-5.0); Alkaline Phosphatase 74 U/L (45-117); BUN Blood Urea Nitrogen 15 mg/dL (7-18); Bicarbonate 28 mEq/L (21-32); Bilirubin Total 0.2 mg/dL (0.2-1.0); Glomerular Filtration Rate 95 ml/min (=/>90); Glucose Level 175 mg/dL (74-106); Potassium 3.6 mEq/L (3.5-5.1); Protein, Total 8.3 g/dL (6.4-8.2); Sodium Level 137 mEq/L (136-145); Troponin High Sensitivity 3.2 pg/mL (<58.9)
[2023-02-02 23:30] LABS: Bilirubin Direct < 0.1 mg/dL (0-0.2); Bilirubin Indirect, Calculated ND mg/dL (0.2-0.8)
--- NOTE | 2023-02-03 00:09 | EDPHYS ---
Physician Documentation [facility] Name: Holden Morris Age: 38 yrs Sex: Male : 1985 Arrival Date: 02/02/2023 Time: 21:46 Bed 8 Private MD: ED Physician João Barillas HPI: 02/03 01:21 This 38 yrs old Black Male presents to ER via Ambulatory with complaints of Chest Pain, rt Syncope. 01:21 Patient presents to the ED with upper sternal chest pain that has been persistent since rt he was discharged from the hospital just 3 days ago. He had a negative stress test at that time. Patient states that he did pass out today but attributes that due to the pain. He states that he did not steel pickler his medicines at home due to not having the money, but states that he will have the money on Tuesday to steel pickler the medicines. He denies other acute complaints at this time. Symptoms are moderate in severity, no other aggravating alleviating factors. Historical: - Allergies: 02/02 22:00 PENICILLINS; young; iw - PMHx: 22:00 Anxiety; Asthma; GERD; Hypertension; Resolved; Migraines; iw - PSHx: 22:00 Cornea transplant L eye; iw - Immunization history:: Adult Immunizations up to date. - Social history:: Smoking status: unknown. - Family history:: not pertinent. ROS: 02/03 01:21 Constitutional: Negative for fever, chills, and weight loss, Eyes: Negative for injury, rt pain, redness, and discharge, Respiratory: Negative for shortness of breath, cough, wheezing, and pleuritic chest pain, Abdomen/GI: Negative for abdominal pain, nausea, vomiting, diarrhea, and constipation, MS/Extremity: Negative for injury and deformity, Skin: Negative for injury, rash, and discoloration, Neuro: Negative for headache, weakness, numbness, tingling, and seizure, Psych: Negative for depression, anxiety, suicide ideation, homicidal ideation, and hallucinations. Cardiovascular: Positive for chest pain, Negative for edema. Exam: 01:21 Constitutional: This is a well developed, well nourished patient who is awake, alert, rt and in no acute distress. Head/Face: Normocephalic, atraumatic. Neck: Trachea midline, no thyromegaly or masses palpated, and no cervical lymphadenopathy. Supple, full range of motion without nuchal rigidity, or vertebral point tenderness. No Meningismus. Chest/axilla: Normal chest wall appearance and motion. Nontender with no deformity. No lesions are appreciated. Cardiovascular: Regular rate and rhythm with a normal S1 and S2. No gallops, murmurs, or rubs. Normal PMI, no JVD. No pulse deficits. Respiratory: Lungs have equal breath sounds bilaterally, clear to auscultation and percussion. No rales, rhonchi or wheezes noted. No increased work of breathing, no retractions or nasal flaring. Abdomen/GI: Soft, non-tender, with normal bowel sounds. No distension or tympany. No guarding or rebound. No evidence of tenderness throughout. Skin: Warm, dry with normal turgor. Normal color with no rashes, no lesions, and no evidence of cellulitis. MS/ Extremity: Pulses equal, no cyanosis. Neurovascular intact. Full, normal range of motion. Neuro: Awake and alert, GCS 15, oriented to person, place, time, and situation. Cranial nerves II-XII grossly intact. Motor strength 5/5 in all extremities. Sensory grossly intact. Cerebellar exam normal. Normal gait. Psych: Awake, alert, with orientation to person, place and time. Behavior, mood, and affect are within normal limits. 01:21 ECG was reviewed by the Attending Physician. Vital Signs: 02/02 21:58 BP 142 / 81; Pulse 86; Resp 16; Temp 98.1; Pulse Ox 99% on R/A; Weight 111.13 kg; iw Height 5 ft. 9 in. ; Pain 9/10; 23:19 BP 91 / 59; Pulse 80; Resp 19; Pulse Ox 99% on R/A; kd3 23:54 BP 109 / 57; Pulse 64; Resp 16; Pulse Ox 96% on R/A; kd3 21:58 Body Mass Index 36.18 (111.13 kg, 175.26 cm) iw 21:58 Pain Scale: Adult iw MDM: 22:24 Patient medically screened. rt 02/03 01:23 Differential diagnosis: ACS, chest wall pain, pneumonia. HEART Score: History: Slightly rt Suspicious (0), ECG: Normal (0), Age: < or = 45 years (0), Risk Factors: 1 or 2 risk factors (1), Troponin: < or = 1 x Normal Limit (0), Total Score = 1. Data reviewed: vital signs, nurses notes, old medical records, lab test result(s), EKG, radiologic studies. I considered the following discharge prescriptions or medication management in the emergency department Medications were administered in the Emergency Department. See MAR. Independent interpretation of the following test(s) in the Emergency Department X-Ray: My interpretation is No consolidation syndrome interpretation of the x-ray images. Test considered but Not performed: CT: Symptoms are atypical for pulmonary embolism, CT angiogram not indicated. Care significantly affected by the following chronic conditions: Hypertension. Counseling: I had a detailed discussion with the patient and/or guardian regarding: the historical points, exam findings, and any diagnostic results supporting the discharge/admit diagnosis, lab results, radiology results, the need for outpatient follow up, to return to the emergency department if symptoms worsen or persist or if there are any questions or concerns that arise at home. Response to treatment: the patient's symptoms have markedly improved after treatment. 02/02 22:11 Order name: Basic Metabolic Panel; Complete Time: 23:31 rt 02/02 22:11 Order name: CBC with Diff; Complete Time: 23:31 rt 02/02 22:11 Order name: LFT's; Complete Time: 23:31 rt 02/02 22:11 Order name: Troponin HS; Complete Time: 23:31 rt 02/02 22:11 Order name: XRAY Chest (1 view) rt 02/02 22:11 Order name: EKG; Complete Time: 22:12 rt 02/02 22:11 Order name: Cardiac monitoring; Complete Time: 22:58 rt 02/02 22:11 Order name: EKG - Nurse/Tech; Complete Time: 22:15 rt 02/02 22:11 Order name: IV Saline Lock; Complete Time: 22:32 rt 02/02 22:11 Order name: Labs collected and sent; Complete Time: 22:32 rt 02/02 22:11 Order name: O2 Per Protocol; Complete Time: 22:58 rt 02/02 22:11 Order name: O2 Sat Monitoring; Complete Time: 22:58 rt EC:21 Rate is 82 beats/min. Rhythm is regular, Normal Sinus Rhythm with No ectopy. QRS [place] rt is Normal. LA interval is normal. QRS interval is normal. QT interval is normal. No Q waves. T waves are Normal. No ST changes noted. Clinical impression: Normal ECG. Administered Medications: 02/02 22:58 Drug: HYDROcodone-acetaminophen PO 10 mg-325 mg 1 tabs Route: PO; ll3 02/03 00:24 Follow up: Response: No adverse reaction; Pain is decreased kd3 Disposition Summary: 02/03/23 00:08 Discharge Ordered Location: Home rt Problem: an ongoing problem rt Symptoms: have improved rt Condition: Stable rt Diagnosis - Chest pain, unspecified rt Followup: rt - With: Silvano Victoria MD - When: 5 - 6 days - Reason: Discharge Instructions: - Discharge Summary Sheet rt - Nonspecific Chest Pain, Adult rt Forms: - Medication Reconciliation Form rt - Thank You Letter rt - Antibiotic Education rt - Prescription Opioid Use rt - Patient Portal Instructions rt Signatures: Dispatcher [employer] Keshia Seaman RN RN Jacquie Pierce RN RN 3 Shae Vega RN RN 3 João Barillas MD MD rt
--- NOTE | 2023-02-03 00:09 | ER ---
Nurse's Notes [facility] Name: Holden Morris Age: 38 yrs Sex: Male : 1985 Arrival Date: 02/02/2023 Time: 21:46 Bed 8 Private MD: Diagnosis: Chest pain, unspecified Presentation: 02/02 21:58 Chief complaint: Patient states: was just admitted to hospital for chest pain on Tuesday iw , he was sent home with prescriptions and he can;t afford them til Tuesday , he is still having chest pain across the top of his chest. Coronavirus screen: At this time, the client does not indicate any symptoms associated with coronavirus-19. Ebola Screen: Patient negative for fever greater than or equal to 101.5 degrees Fahrenheit, and additional compatible Ebola Virus Disease symptoms Patient denies exposure to infectious person. Patient denies travel to an Ebola-affected area in the 21 days before illness onset. No symptoms or risks identified at this time. Initial Sepsis Screen: Does the patient meet any 2 criteria? Does the patient have a suspected source of infection? No. Patient's initial sepsis screen is negative. Risk Assessment: Do you want to hurt yourself or someone else? Patient reports no desire to harm self or others. Onset of symptoms was January 30, 2023. 21:58 Method Of Arrival: Ambulatory iw 21:58 Acuity: STONE 3 iw Historical: - Allergies: 22:00 PENICILLINS; young; iw - PMHx: 22:00 Anxiety; Asthma; GERD; Hypertension; Resolved; Migraines; iw - PSHx: 22:00 Cornea transplant L eye; iw - Immunization history:: Adult Immunizations up to date. - Social history:: Smoking status: unknown. - Family history:: not pertinent. Screenin:[address] [facility] ED Fall Risk Assessment (Adult) History of falling in the last 3 months, kd3 including since admission No falls in past 3 months (0 pts) Confusion or Disorientation No (0 pts) Intoxicated or Sedated No (0 pts) Impaired Gait No (0 pts) Mobility Assist Device Used No (0 pt) Altered Elimination No (0 pt) Score/Fall Risk Level 0 - 2 = Low Risk Maintained a safe environment. Abuse screen: Denies threats or abuse. Denies injuries from another. Nutritional screening: No deficits noted. Tuberculosis screening: No symptoms or risk factors identified. Assessment: 23:55 General: Appears in no apparent distress. Behavior is calm, cooperative. Pain: kd3 Complains of pain in chest Pain does not radiate. Pain began gradually. Cardiovascular: Patient's skin is warm and dry. Vital Signs: 21:58 BP 142 / 81; Pulse 86; Resp 16; Temp 98.1; Pulse Ox 99% on R/A; Weight 111.13 kg; iw Height 5 ft. 9 in. ; Pain 9/10; 23:19 BP 91 / 59; Pulse 80; Resp 19; Pulse Ox 99% on R/A; kd3 23:54 BP 109 / 57; Pulse 64; Resp 16; Pulse Ox 96% on R/A; kd3 21:58 Body Mass Index 36.18 (111.13 kg, 175.26 cm) iw 21:58 Pain Scale: Adult iw ED Course: 21:47 Patient arrived in ED. jj6 21:49 João Barillas MD is Attending Physician. rt 22:00 Triage completed. iw 22:00 Arm band placed on. iw 22:14 Shae Vega, RN is Primary Nurse. kd3 22:32 Basic Metabolic Panel Sent. rv1 22:32 CBC with Diff Sent. rv1 22:32 LFT's Sent. rv1 22:32 Troponin HS Sent. rv1 22:33 Inserted saline lock: 20 gauge in left antecubital area, using aseptic technique. Blood rv1 collected. 22:56 XRAY Chest (1 view) In Process Unspecified. EDMS 23:55 Patient has correct armband on for positive identification. Provided Education on: . kd3 Client placed on continuous cardiac and pulse oximetry monitoring. NIBP monitoring applied. teletypesetter monitor on. 23:56 Patient maintains SpO2 saturation greater than 95% on room air. kd3 02/03 00:08 Silvano Victoria MD is Referral Physician. rt 00:23 No provider procedures requiring assistance completed. IV discontinued, intact, kd3 bleeding controlled, No redness/swelling at site. Pressure dressing applied. Administered Medications: 02/02 22:58 Drug: HYDROcodone-acetaminophen PO 10 mg-325 mg 1 tabs Route: PO; ll3 02/03 00:24 Follow up: Response: No adverse reaction; Pain is decreased kd3 Medication: 02/02 23:56 VIS not applicable for this client. kd3 Outcome: 02/03 00:08 Discharge ordered by . rt 00:23 Discharged to home ambulatory. kd3 00:23 Condition: stable 00:23 Discharge instructions given to patient, Instructed on discharge instructions, follow up and referral plans. Demonstrated understanding of instructions, follow-up care. 00:24 Patient left the ED. kd3 Signatures: Dispatcher [employer] EDKeshia Lopez RN RN iw Jeffries, Jennifer jj6 Jacquie Pierce RN RN ll3 Shae Vega RN RN kd3 João Barillas MD MD rt Villegas, Rebecca rv1
[2023-02-03 00:47] VITALS: TEMP 98.1
[2023-02-03 00:49] VITALS: BP 109/57; O2SAT 96
--- NOTE | 2023-02-03 12:28 | RAD REPORT ---
EXAM DESCRIPTION: RAD - Chest Single View - 02/02/2023 10:54 pm CLINICAL HISTORY: CHEST PAIN. COMPARISON: None. TECHNIQUE: Single view AP chest radiograph(s). FINDINGS: The lungs are clear. No pulmonary infiltrate or edema identified. No pleural effusion. N o pneumothorax. Nonenlarged cardiomediastinal silhouette. No significant osseous abnormality. IMPRESSION: No acute cardiopulmonary abnormality identified by radiograph. Electronically signed by: Yaritza Murry MD 02/02/2023 11:25 PM CDT Due to temporary technical issues with the PACS/Fluency reporting system, reports are being signed by the in house radiologist without review as a courtesy to ensure prompt reporting. The interpreting r adiologist is fully responsible for the content of the report.
== END 2023-02-03 00:24 | disposition home or self-care (01) ==
LOC: ER 21:46
DX: R07.89 Other chest pain (principal); I10 Essential (primary) hypertension; F41.9 Anxiety disorder, unspecified; Z88.0 Allergy status to penicillin
CPT/HCPCS: 36415; 71045; 80048; 80076; 84484; 85025; 99285

== ENCOUNTER 2023-02-07 17:44 | Inpatient (IN) | payer OTHER ==
[2023-02-07 18:44] LABS: Hematocrit 40.9 % (39.6-49.0); Lymphocytes % 5.4 % (15.3-44.8); MCV 74.6 fL (80-100); MPV 7.3 fL (7.6-11.3); Platelets 323 thou/uL (152-406); RBC Red Blood Cell Count 5.49 M/uL (4.33-5.43)
[2023-02-07 19:03] LABS: Potassium 4.5 mEq/L (3.5-5.1)
[2023-02-07] MEDS ORDERED: TDAP (DIPHTH,PERTUSS(ACELL),TET VAC) 0.5 ML VIAL IMVAC ONE (19:19)
[2023-02-07] MEDS ORDERED: Ringers Lactate 1,000 ML IV ONE ×2 (19:19→19:49)
--- NOTE | 2023-02-07 19:22 | ER ---
Nurse's Notes [facility] Name: Holden Morris Age: 38 yrs Sex: Male : 1985 Arrival Date: 02/07/2023 Time: 17:44 Bed 3 Private MD: Diagnosis: Acute Kidney injury;Tachcyardia;Leukocytosis;Anemia, unspecified Presentation: 02/07 18:03 Chief complaint: Patient states: "I don't know if my medicine had a reaction with me cm10 being in the sun or if I am dehydrated. I was having a norm horse in my left leg and then it started on my right until EMS arrived.". Coronavirus screen: Vaccine status: Patient reports receiving the 2nd dose of the covid vaccine. Client denies travel out of the [place] in the last 14 days. Ebola Screen: Patient denies travel to an Ebola-affected area in the 21 days before illness onset. No symptoms or risks identified at this time. Initial Sepsis Screen: Does the patient meet any 2 criteria? No. Patient's initial sepsis screen is negative. Does the patient have a suspected source of infection? No. Patient's initial sepsis screen is negative. Risk Assessment: Do you want to hurt yourself or someone else? Patient reports no desire to harm self or others. Onset of symptoms was February 07, 2023. 18:03 Method Of Arrival: EMS: [facility] cm10 18:03 Acuity: STONE 3 cm10 Historical: - Allergies: 18:05 PENICILLINS; young; cm10 - PMHx: 18:05 Anxiety; Asthma; Hypertension; Resolved; GERD; Migraines; cm10 - PSHx: 18:05 Cornea transplant L eye; cm10 - Immunization history:: Adult Immunizations. - Social history:: Smoking status: Patient denies any tobacco usage or history of. Screenin:40 Clinical [place] Withdrawal Assessment for Alcohol, revised (CIWA-Ar):. [facility] iw Fall Risk Assessment (Adult) Score/Fall Risk Level 0 - 2 = Low Risk. Abuse screen: Denies threats or abuse. Denies injuries from another. Nutritional screening: No deficits noted. Tuberculosis screening: No symptoms or risk factors identified. Assessment: 18:40 General: Appears in no apparent distress. Behavior is calm, cooperative. Pain: iw Complains of pain in cramps all over body. Neuro: Level of Consciousness is awake, alert, obeys commands, Oriented to person, place, time, situation, Moves all extremities. Full function. Cardiovascular: Patient's skin is warm and dry. Respiratory: Respiratory effort is even, unlabored, Respiratory pattern is regular, symmetrical. Derm: Skin is intact, is healthy with good turgor. Musculoskeletal: Range of motion: intact in all extremities. Vital Signs: 18:03 BP 119 / 76; Pulse 112; Resp 18; Temp 98.7; Pulse Ox 98% on R/A; Weight 106.59 kg; cm10 Height 5 ft. 8 in. ; Pain 8/10; 19:56 BP 133 / 94; Pulse 100; Resp 19; Pulse Ox 100% on R/A; rv 21:38 BP 135 / 59; Pulse 93; Resp 18; Temp 98; Pulse Ox 99% ; rv 18:03 Body Mass Index 35.73 (106.59 kg, 172.72 cm) cm10 18:03 Pain Scale: Adult cm10 Malina Coma Score: 21:38 Eye Response: spontaneous(4). Motor Response: obeys commands(6). Verbal Response: rv oriented(5). Total: 15. ED Course: 17:47 Patient arrived in ED. mr 18:05 Triage completed. cm10 18:06 Arm band placed on Patient placed in waiting room. cm10 18:08 Jose Francisco Wheeler DO is Attending Physician. ms3 18:38 Inserted saline lock: 20 gauge in left antecubital area, using aseptic technique. Blood iw collected. 19:12 Keshia Vernon RN is Primary Nurse. iw 19:22 Paige Diaz MD is Hospitalizing Provider. ms3 19:56 Patient has correct armband on for positive identification. Placed in gown. Bed in low rv position. Call light in reach. Side rails up X 1. Client placed on continuous cardiac and pulse oximetry monitoring. NIBP monitoring applied. color television console monitor on. 19:57 Provided Education on: KIDNEY FUNCTION. rv 19:57 No provider procedures requiring assistance completed. rv 21:37 Patient admitted, IV remains in place. rv Administered Medications: 19:12 Drug: Lactated Ringers Solution IV 1000 ml Route: IV; Rate: bolus; Site: left iw antecubital; 21:38 Follow up: IV Status: Completed infusion; IV Intake: 1000ml rv 19:13 Not Given (Duplicate Order): Tetanus-Diphtheria Toxoid IM Adult 0.5 ml IM once; Provide iw Vaccine Information Statement (VIS). 19:13 Drug: Boostrix Tdap IM 0.5 ml Route: IM; Site: right deltoid; iw 21:38 Follow up: Response: No adverse reaction rv 19:43 Drug: Lactated Ringers Solution IV 1000 ml Route: IV; Rate: bolus; Site: left rv antecubital; 21:38 Follow up: IV Status: Completed infusion; IV Intake: 1000ml rv Medication: 19:57 VIS not applicable for this client. rv Intake: 21:38 IV: 1000ml; Total: 1000ml. rv 21:38 IV: 1000ml; Total: 2000ml. rv Outcome: 19:22 Decision to Hospitalize by Provider. ms3 21:37 Admitted to Med/surg accompanied by tech, via wheelchair, room 218, with chart, Report rv called to RADHA CAMARENA 21:37 Condition: good 21:37 Instructed on the need for admit. 21:39 Patient left the ED. rv Signatures: Anika Han Irene, RN RN iw Poncho Rosales RN RN rv Jose Francisco Wheeler DO DO ms3 Vandana Oliver, RN RN cm10
--- NOTE | 2023-02-07 19:22 | EDPHYS ---
Physician Documentation [facility] Name: Holden Morris Age: 38 yrs Sex: Male : 1985 Arrival Date: 02/07/2023 Time: 17:44 Bed 3 Private MD: ED Physician Jose Francisco Wheeler HPI: 02/07 18:58 This 38 yrs old Black Male presents to ER via EMS with complaints of Dehydration. ms3 18:58 38-year-old male with past medical history of anxiety, asthma, hypertension, GERD, ms3 migraines presents for body aches and charley horse that began earlier today. Patient states he was working in the heat outdoors. Patient rates his pain an 8/10 and describes it as aching throughout his body. Patient Dors is nausea. Patient denies vomiting.. Historical: - Allergies: 18:05 PENICILLINS; young; cm10 - PMHx: 18:05 Anxiety; Asthma; Hypertension; Resolved; GERD; Migraines; cm10 - PSHx: 18:05 Cornea transplant L eye; cm10 - Immunization history:: Adult Immunizations. - Social history:: Smoking status: Patient denies any tobacco usage or history of. ROS: 18:58 Neck: Negative for injury, pain, and swelling, Cardiovascular: Negative for chest pain, ms3 and palpitations. Respiratory: Negative for shortness of breath, cough, wheezing, and pleuritic chest pain, Abdomen/GI: Negative for abdominal pain, nausea, vomiting, diarrhea, and constipation, MS/Extremity: Negative for injury and deformity. 18:58 Constitutional: Positive for body aches. Exam: 18:58 Constitutional: This is a well developed, well nourished patient who is awake, alert, ms3 and in no acute distress. Head/Face: Normocephalic, atraumatic. Neck: Trachea midline, no cervical lymphadenopathy. Supple, full range of motion without nuchal rigidity, or vertebral point tenderness. No Meningismus. Chest/axilla: Normal chest wall appearance and motion. Nontender with no deformity. Cardiovascular: Regular rate and rhythm with a normal S1 and S2. No gallops, murmurs, or rubs. Normal PMI, no JVD. No pulse deficits. Respiratory: Lungs have equal breath sounds bilaterally, clear to auscultation and percussion. No rales, rhonchi or wheezes noted. No increased work of breathing, no retractions or nasal flaring. Abdomen/GI: Soft, non-tender, with normal bowel sounds. No distension or tympany. No guarding or rebound. No evidence of tenderness throughout. Skin: Warm, dry with normal turgor. Normal color with no rashes, no lesions, and no evidence of cellulitis. MS/ Extremity: Pulses equal, no cyanosis. Neurovascular intact. Full, normal range of motion. Vital Signs: 18:03 BP 119 / 76; Pulse 112; Resp 18; Temp 98.7; Pulse Ox 98% on R/A; Weight 106.59 kg; cm10 Height 5 ft. 8 in. ; Pain 8/10; 19:56 BP 133 / 94; Pulse 100; Resp 19; Pulse Ox 100% on R/A; rv 21:38 BP 135 / 59; Pulse 93; Resp 18; Temp 98; Pulse Ox 99% ; rv 18:03 Body Mass Index 35.73 (106.59 kg, 172.72 cm) cm10 18:03 Pain Scale: Adult cm10 Malina Coma Score: 21:38 Eye Response: spontaneous(4). Motor Response: obeys commands(6). Verbal Response: rv oriented(5). Total: 15. MDM: 18:14 Patient medically screened. ms3 18:58 Differential Diagnosis Heat exhaustion vs Dehydration vs Rhabdo. ms3 20:22 Data reviewed: vital signs, nurses notes, lab test result(s), and as a result, I will ms3 admit patient. Consideration of Admission/Observation Patient was admitted/placed on observation. Management of patient was discussed with the following: Hospitalist: VIRGIL Soliz on behalf of Dr Diaz. I considered the following discharge prescriptions or medication management in the emergency department Medications were administered in the Emergency Department. See MAR. Counseling: I had a detailed discussion with the patient and/or guardian regarding: the historical points, exam findings, and any diagnostic results supporting the discharge/admit diagnosis, lab results, the need for further work-up and treatment in the hospital. ED course: Discussed labs and necessity for admission with patient. Patient understands and agrees with plan. All questions were answered. 02/07 18:15 Order name: CBC with Diff; Complete Time: : ms3 02/07 18:15 Order name: BMP; Complete Time: 19:07 ms3 02/07 18:15 Order name: CK; Complete Time: 19:07 ms3 02/07 20:50 Order name: Lactate w/ 2H reflex if indic. EDMS 02/07 20:50 Order name: Urinalysis w/ reflexes EDMS 02/07 20:50 Order name: CBC with Automated Diff EDMS 02/07 20:50 Order name: CBC with Automated Diff EDMS 02/07 20:50 Order name: Comprehensive Metabolic Panel EDMS 02/07 20:50 Order name: Comprehensive Metabolic Panel EDMS 02/07 20:50 Order name: Magnesium EDMS 02/07 20:50 Order name: Magnesium EDMS 02/07 20:50 Order name: Heart Healthy EDMS Administered Medications: 19:12 Drug: Lactated Ringers Solution IV 1000 ml Route: IV; Rate: bolus; Site: left iw antecubital; 21:38 Follow up: IV Status: Completed infusion; IV Intake: 1000ml rv 19:13 Not Given (Duplicate Order): Tetanus-Diphtheria Toxoid IM Adult 0.5 ml IM once; Provide iw Vaccine Information Statement (VIS). 19:13 Drug: Boostrix Tdap IM 0.5 ml Route: IM; Site: right deltoid; iw 21:38 Follow up: Response: No adverse reaction rv 19:43 Drug: Lactated Ringers Solution IV 1000 ml Route: IV; Rate: bolus; Site: left rv antecubital; 21:38 Follow up: IV Status: Completed infusion; IV Intake: 1000ml rv Disposition Summary: 02/07/23 19:22 Hospitalization Ordered Hospitalization Status: Inpatient Admission ms3 Provider: Paige Diaz ms3 Location: Telemetry/[facility]Sur (Inpatient) ms3 Condition: Stable ms3 Problem: new ms3 Symptoms: are unchanged ms3 Bed/Room Type: Standard ms3 Room Assignment: 218(02/07/23 21:09) cg Diagnosis - Acute Kidney injury ms3 - Tachcyardia ms3 - Leukocytosis ms3 - Anemia, unspecified ms3 Forms: - Medication Reconciliation Form ms3 - SBAR form ms3 Signatures: Dispatcher [employer] Keshia Seaman RN RN iw Corina Hawthorne RN RN cg Poncho Rosales RN RN rv Jose Francisco Wheeler DO DO ms3 Vandana Oliver, RN RN cm10 Corrections: (The following items were deleted from the chart) 19:22 ms3 cg
[2023-02-07] MEDS ORDERED: ONDANSETRON 4 MG/2 ML VIAL IV PRN (20:48)
[2023-02-07] MEDS: NA CHLORIDE 0.9% 1,000 ML IV SCH (21:00)
[2023-02-07 21:50] VITALS: O2SAT 99
--- NOTE | 2023-02-07 22:06 | P.HP ---
Certification for Inpatient Patient admitted to: Observation With expected LOS: <2 Midnights Patient will require the following post-hospital care: None Practitioner: I am a practitioner with admitting privileges, knowledge of patient current condition, hospital course, and medical plan of care. Services: Services provided to patient in accordance with Admission requirements found in Title 42 Section 412.3 of the Code of Federal Regulations Patient History Date of Service: 02/07/23 Reason for admission: Bodyaches History of Present Illness: 38-year-old -N[place]alese male with a past medical history of hypertension, asthma, anxiety, GERD, migraines presents to the emergency room with bodyaches. He reports working outside in the heat, complains of dehydration. He reported charley horse today. He denied nausea vomiting, chest pain, diarrhea, cough, shortness of breath, fever or chills. He reportedly recently discharged from the hospital and was on steroids. Plan to admit for sepsis, acute kidney injury, dehydration. Laboratory evaluation noted sepsis, elevated lactic, acute kidney injury, tachycardia, leukocytosis, anemia. Laboratory evaluation BUN 24, creatinine 3.14, estimated GFR 25, calcium 10.3, CK6 60, leukocytosis 19.20, micro cytic anemia 12.6, left shift at 87.0, lactic acid 2.6, Allergies Penicillins Allergy (Verified 11/05/21 20:25) Unknown Home Medications: Atorvastatin Calcium [Lipitor] 40 mg PO BEDTIME #30 tab 01/31/23 Hydrocodone 10/APAP 325 [[place] 10/325] 1 tab PO Q6H PRN #30 tab 01/31/23 clonazePAM [Klonopin] 0.5 mg PO BID PRN #30 tab 01/31/23 predniSONE [Deltasone] 20 mg PO DAILY #5 tab 01/31/23 - Past Medical/Surgical History Diabetic: No -: Hypertension -: Corneal transplant - Family History Father -: Heart disease (Father of heart attack at the age of 55) - Social History Alcohol use: Yes CD- Drugs: No Review of Systems 10-point ROS is otherwise unremarkable Physical Examination - Vital Signs Temperature: 98 F Blood Pressure: 135/59 Pulse: 93 Respirations: 18 - Physical Exam General: Alert, In no apparent distress, Oriented x3 HEENT: Atraumatic, Normocephalic, PERRLA Neck: Supple, 2+ carotid pulse no bruit, JVD not distended Respiratory: Clear to auscultation bilaterally, Normal air movement Cardiovascular: No edema, Normal pulses Capillary refill: <2 Seconds Gastrointestinal: Normal bowel sounds, Soft and benign Musculoskeletal: No clubbing, No swelling Integumentary: No rashes, No breakdown - Studies Laboratory Data (last 24 hrs) 02/07/23 02/07/23 18:35 18:35 WBC 19.20 H Hgb 12.6 L Hct 40.9 Plt Count 323 Sodium 135 L Potassium 4.5 BUN 24 H Creatinine 3.14 H Glucose 161 H Assessment and Plan - Plan Assessment plan Sepsis tachycardia, leukocytosis, elevated lactic-unknown source of infection Acute kidney injury likely secondary to dehydration Dehydration Anemia, Essential hypertension Anxiety GERD DVT prophylaxis Assessment plan Sepsis, IV fluids, IV antibiotics Infectious disease consult Blood cultures, urine cultures, follow cultures trend lactic leukocytosis 19.20, left shift at 87.0, lactic acid 2.6, Acute kidney injury likely secondary to dehydration Dehydration Nephrology consult Dr. Brown notified Trend kidney function, trend electrolytes, IV fluids, BUN 24, creatinine 3.14, estimated GFR 25, Anemia Trend H&H, microcytic anemia 12.6, Essential hypertension Anxiety GERD elevated lactic Resume appropriate home meds Anxiety DVT prophylaxis heparin Diet cardiac Full code Discharge Plan: Home Plan to discharge in: 24 Hours - Advance Directives Does patient have a Living Will: No Does patient have a Durable POA for Healthcare: No - Code Status/Comfort Care Code Status: Full Code Physician Review: Patient Assessed, Agree with Above Assessment and Plan Critical Care: No Time Spent Managing Pts Care (In Minutes): 50
[2023-02-07] MEDS ORDERED: CEFTRIAXONE 1,000 MG in NA CHLORIDE 0.9% 50 ML IVPB SCH (22:23)
[2023-02-07 22:32] VITALS: BMI 37.2
[2023-02-07] MEDS ORDERED: MORPHINE 4 MG/ML SYR IV ONE (22:33)
[2023-02-07] MEDS: ACETAMINOPHEN 500 MG TAB PO PRN (22:50)
[2023-02-07] MEDS: ZOLPIDEM TARTRATE 5 MG TABLET PO PRN (22:50)
[2023-02-08] MEDS: HEPARIN 5000 UNIT/ML 1 ML VIAL SQ SCH ×3 (00:03→17:09)
[2023-02-08 01:14] LABS: Calcium Oxalate Crystals- Ur Few /HPF (None Seen); Specific Gravity 1.017 (1.005-1.030); Urine Bacteria <20 /HPF (<20); Urine Bilirubin NEGATIVE (Negative); Urine Blood Negative (Negative); Urine Clarity Extremely Turbid (Clear); Urine Color Light-Yellow (Yellow); Urine Glucose NEGATIVE (Negative); Urine Mucus Slight /HPF (None Seen); Urine Protein TRACE (Negative); Urine RBC None Seen /HPF (None Seen); Urine Urobilinogen Normal (Normal)
[2023-02-08] MEDS: NA CHLORIDE 0.9% 1,000 ML IV SCH ×2 (04:51→17:09)
[2023-02-08 06:25] LABS: Absolute Lymphocytes (CBC) 3.2 K/uL (0.7-4.9); Hematocrit 34.5 % (39.6-49.0); Lymphocytes % 20.4 % (15.3-44.8); MCV 75.1 fL (80-100); MPV 7.7 fL (7.6-11.3); Platelets 290 thou/uL (152-406); RBC Red Blood Cell Count 4.59 M/uL (4.33-5.43)
[2023-02-08 06:37] LABS: Albumin 3.7 g/dL (3.4-5.0); Bilirubin Total 0.4 mg/dL (0.2-1.0); Magnesium 2.2 mg/dL (1.6-2.4); Potassium 4.1 mEq/L (3.5-5.1); Protein, Total 7.6 g/dL (6.4-8.2)
[2023-02-08] MEDS: ACETAMINOPHEN 500 MG TAB PO PRN ×3 (08:20→20:38)
[2023-02-08 11:59] LABS: Absolute Lymphocytes (CBC) 3.4 K/uL (0.7-4.9); Hematocrit 34.4 % (39.6-49.0); Lymphocytes % 25.9 % (15.3-44.8); MCV 74.8 fL (80-100); MPV 7.4 fL (7.6-11.3); Platelets 274 thou/uL (152-406)
[2023-02-08 12:15] LABS: Albumin 3.5 g/dL (3.4-5.0); Bilirubin Total 0.4 mg/dL (0.2-1.0); C-Reactive Protein 9.75 mg/L (<3.00); Magnesium 2.1 mg/dL (1.6-2.4); Protein, Total 7.5 g/dL (6.4-8.2); Troponin High Sensitivity 31.8 pg/mL (<58.9)
--- NOTE | 2023-02-08 12:22 | RAD REPORT ---
EXAM DESCRIPTION: RAD - Chest Single View - 02/08/2023 12:16 pm CLINICAL HISTORY: pneumonia Chest pain. COMPARISON: Chest Single View dated 02/02/2023; Chest Single View dated 01/30/2023; Chest Single View d ated 01/27/2023; Chest Pa And Lat (2 Views) dated 10/26/2022 FINDINGS: Portable technique limits examination quality. The lungs are grossly clear. The heart is normal in size. No displaced fractures. IMPRESSION: No acute intrathoracic process suspected.
--- NOTE | 2023-02-08 14:09 | P.PN ---
Date of Service: 02/08/23 Subjective Patient is doing well today. Complaining of some shortness of breath but otherwise feeling better. Patient denies any new complaints. Physical Examination - Vital Signs Reviewed - Physical Exam General: Alert, In no apparent distress, Oriented x3 Respiratory: Clear to auscultation bilaterally, Normal air movement Cardiovascular: Regular rate and rhythm no murmurs Gastrointestinal: Normal bowel sounds, Soft and benign Musculoskeletal: Tenderness to the chest wall and to the lower extremities Integumentary: No rashes, No breakdown Assessment and Plan -Assessment Assessment Rhabdomyolysis Acute kidney injury Elevated Inflammatory markers Anemia, Essential hypertension Anxiety GERD DVT prophylaxis - Plan Plan Rhabdomyolysis IV fluids Repeat lactic acid level CPK; urine pH can be followed Monitor renal function Acute kidney injury Continue with hydration; prerenal azotemia; corrected; Anemia Hemoglobin stable; Microcytosis with normal iron levels. Hgb Electropheresis pending Essential hypertension Strict BP control Anxiety Anxiolytics GERD PPI Lactic acidosis monitor closely DVT prophylaxis heparin Diet cardiac Full code Discharge Plan: Home Plan to discharge in: 24 Hours - Advance Directives Does patient have a Living Will: No Does patient have a Durable POA for Healthcare: No - Code Status/Comfort Care Code Status: Full Code Physician Review: Patient Assessed, Agree with Above Assessment and Plan Critical Care: No Time Spent Managing Pts Care (In Minutes): 50
--- NOTE | 2023-02-08 15:43 | P.CNS ---
Date of Consult: 02/08/23 Reason for Consult: sepsis Chief Complaint: Bodyaches History of Present Illness: Patient is a 38 yo male, does not report a significant past medical history, who presented to the ED with complaints of generalized bodyaches and recurrent leg cramping. ED workup revealing leukocytosis, elevated lactic acid, BUN 24, Cr 3.14. ID consulted for sepsis. Allergies Penicillins Allergy (Verified 11/05/21 20:25) Unknown Home Medications: Atorvastatin Calcium [Lipitor] 40 mg PO BEDTIME #30 tab 01/31/23 Hydrocodone 10/APAP 325 [[place] 10/325] 1 tab PO Q6H PRN #30 tab 01/31/23 clonazePAM [Klonopin] 0.5 mg PO BID PRN #30 tab 01/31/23 predniSONE [Deltasone] 20 mg PO DAILY #5 tab 01/31/23 - Past Medical/Surgical History Diabetic: No -: Hypertension -: Anxiety -: Asthma -: GERD -: Migraines -: Corneal transplant - Family History Father Medical History: Heart disease (Father of heart attack at the age of 55) - Social History Smoking Status: Unknown if ever smoked Alcohol use: Yes CD- Drugs: No Caffeine use: No Place of Residence: Home Review of Systems General: Other (generalized bodyache) Respiratory: Shortness of Breath Cardiovascular: Chest Pain Musculoskeletal: Leg Pain (L>R) Physical Examination Temp Pulse Resp BP Pulse Ox 97.9 F 87 16 142/63 H 99 02/08/23 12:00 02/08/23 12:00 02/08/23 12:00 02/08/23 12:00 02/08/23 12:00 General: Alert, In no apparent distress, Oriented x3 HEENT: Atraumatic, Normocephalic Neck: Supple, JVD not distended Respiratory: Clear to auscultation bilaterally, Normal air movement Cardiovascular: No edema, Normal pulses Gastrointestinal: Normal bowel sounds, Soft and benign Musculoskeletal: Tenderness (generalized body aches ) Integumentary: No rashes, No breakdown Neurological: Normal tone, Normal affect Laboratory Data (last 24 hrs) 02/08/23 02/08/23 02/07/23 05:46 05:46 18:35 WBC 15.50 H Hgb 10.9 L D Hct 34.5 L Plt Count 290 Sodium 137 135 L Potassium 4.1 4.5 BUN 23 H 24 H Creatinine 1.39 H 3.14 H Glucose 147 H 161 H Magnesium 2.2 Total Bilirubin 0.4 AST 49 H ALT 32 Alkaline Phosphatase 58 02/07/23 18:35 WBC 19.20 H Hgb 12.6 L Hct 40.9 Plt Count 323 Sodium Potassium BUN Creatinine Glucose Magnesium Total Bilirubin AST ALT Alkaline Phosphatase Imagings Data: - Reviewed Conclusions/Impression: Problem List Rhabdomyolysis Acute Kidney Injury Leukocytosis Recommendations Patient was started on empiric antibiotic Rocephin in ED due to concern of infection with leukocytosis and elevated lactic acid. Patient was found to have SHAY, rhabdomyolysis. Chest XR with no acute findings. Rocephin was discontinued 02/07. No indication for antibiotics at this time. See nephrology / hospitalist note for further recommendations Case discussed with Ely Darden
--- NOTE | 2023-02-08 17:17 | P.CNS ---
Date of Consult: 02/08/23 Reason for Consult: SHAY Requesting Physician: Paige Diaz Chief Complaint: Bodyaches History of Present Illness: 38-year-old -Citizen Of [place] male with a past medical history of hypertension, asthma, anxiety, GERD, migraines presents to the emergency room with bodyaches. He reports working outside in the heat, complains of dehydration. He reported charley horse today. He denied nausea vomiting, chest pain, diarrhea, cough, shortness of breath, fever or chills. He reportedly recently discharged from the hospital and was on steroids. Plan to admit for sepsis, acute kidney injury, dehydration. Laboratory evaluation noted sepsis, elevated lactic, acute kidney injury, tachycardia, leukocytosis, anemia. Laboratory evaluation BUN 24, creatinine 3.14, estimated GFR 25, calcium 10.3, CK6 60, leukocytosis 19.20, micro cytic anemia 12.6, left shift at 87.0, lactic acid 2.6, 18:58 This 38 yrs old Black Male presents to ER via EMS with complaints of Dehydration. ms3 18:58 38-year-old male with past medical history of anxiety, asthma, hypertension, GERD, ms3 migraines presents for body aches and charley horse that began earlier today. Patient states he was working in the heat outdoors. Patient rates his pain an 8/10 and describes it as aching throughout his body. Patient Dors is nausea. Patient denies vomiting.. Allergies Penicillins Allergy (Verified 11/05/21 20:25) Unknown Home medications list reviewed: Yes Home Medications: Atorvastatin Calcium [Lipitor] 40 mg PO BEDTIME #30 tab 01/31/23 Hydrocodone 10/APAP 325 [[place] 10/325] 1 tab PO Q6H PRN #30 tab 01/31/23 clonazePAM [Klonopin] 0.5 mg PO BID PRN #30 tab 01/31/23 predniSONE [Deltasone] 20 mg PO DAILY #5 tab 01/31/23 - Past Medical/Surgical History Diabetic: No -: Hypertension -: Anxiety -: Asthma -: GERD -: Migraines -: Corneal transplant - Family History Father Medical History: Heart disease (Father of heart attack at the age of 55) - Social History Smoking Status: Unknown if ever smoked Alcohol use: Yes CD- Drugs: No Caffeine use: No Place of Residence: Home Review of Systems 10-point ROS is otherwise unremarkable General: Weakness Musculoskeletal: Leg Pain Physical Examination Temp Pulse Resp BP Pulse Ox 97.9 F 87 16 142/63 H 99 02/08/23 12:00 02/08/23 12:00 02/08/23 12:00 02/08/23 12:00 02/08/23 12:00 General: In no apparent distress, Oriented x3, Cooperative HEENT: Atraumatic Neck: Supple Respiratory: Normal air movement Cardiovascular: No edema, Regular rate/rhythm Gastrointestinal: Soft and benign, Non-distended Musculoskeletal: No clubbing, No contractures Integumentary: No rashes, No cyanosis Neurological: Normal speech Laboratory Data (last 24 hrs) 02/08/23 02/08/23 02/07/23 05:46 05:46 18:35 WBC 15.50 H Hgb 10.9 L D Hct 34.5 L Plt Count 290 Sodium 137 135 L Potassium 4.1 4.5 BUN 23 H 24 H Creatinine 1.39 H 3.14 H Glucose 147 H 161 H Magnesium 2.2 Total Bilirubin 0.4 AST 49 H ALT 32 Alkaline Phosphatase 58 02/07/23 18:35 WBC 19.20 H Hgb 12.6 L Hct 40.9 Plt Count 323 Sodium Potassium BUN Creatinine Glucose Magnesium Total Bilirubin AST ALT Alkaline Phosphatase Imagings Data: EXAM DESCRIPTION: RAD - Chest Single View - 02/08/2023 12:16 pm CLINICAL HISTORY: pneumonia Chest pain. COMPARISON: Chest Single View dated 02/02/2023; Chest Single View dated 01/30/2023; Chest Single View dated 01/27/2023; Chest Pa And Lat (2 Views) dated 10/26/2022 FINDINGS: Portable technique limits examination quality. The lungs are grossly clear. The heart is normal in size. No displaced fractures. IMPRESSION: No acute intrathoracic process suspected. Conclusions/Impression: Stage I SHAY likelly due to hypovolemia -No NSAIDs -Continue IVF with NS Rhabdomyolysis -Continue IVF HTN -Start Metoprolol XL Daily Anemia in chronic illness Microcytosis -Monitor H&H -Check iron status Hospitalist note reviewed Thank you kindly for the consultation
[2023-02-08] MEDS: ZOLPIDEM TARTRATE 5 MG TABLET PO PRN (22:25)
[2023-02-09] MEDS: ACETAMINOPHEN 500 MG TAB PO PRN ×4 (02:06→20:41)
[2023-02-09] MEDS: HEPARIN 5000 UNIT/ML 1 ML VIAL SQ SCH ×3 (02:06→16:38)
[2023-02-09] MEDS: NA CHLORIDE 0.9% 1,000 ML IV SCH ×3 (02:07→20:38)
[2023-02-09] MEDS: METOPROLOL XL 25 MG TAB PO SCH (05:41)
[2023-02-09 07:02] LABS: Absolute Lymphocytes (CBC) 3.7 K/uL (0.7-4.9); Hematocrit 34.5 % (39.6-49.0); Lymphocytes % 34.3 % (15.3-44.8); MCV 74.5 fL (80-100); MPV 7.7 fL (7.6-11.3); Platelets 282 thou/uL (152-406); RBC Red Blood Cell Count 4.63 M/uL (4.33-5.43)
[2023-02-09 08:13] LABS: Rheumatoid Factor NEG (NEG)
[2023-02-09 09:03] LABS: Albumin 3.2 g/dL (3.4-5.0); Bilirubin Total 0.4 mg/dL (0.2-1.0); Magnesium 1.9 mg/dL (1.6-2.4); Phosphorus 3.9 mg/dL (2.5-4.9); Potassium 4.5 mEq/L (3.5-5.1); Uric Acid 8.6 mg/dL (3.5-7.2)
[2023-02-09] MEDS: ZOLPIDEM TARTRATE 5 MG TABLET PO PRN (20:42)
--- NOTE | 2023-02-09 21:49 | P.PN ---
Date of Service: 02/09/23 Vital Signs Temp Pulse Resp BP Pulse Ox 97.8 F 76 18 121/55 L 98 02/09/23 20:00 02/09/23 20:00 02/09/23 20:00 02/09/23 20:00 02/09/23 20:00 Medications Acetaminophen (Acetaminophen 500 Mg Tab) 500 mg PO Q4HP PRN PRN Reason: Pain scale 2-4 (Mild) Last Admin: 02/09/23 20:41 Dose: 500 mg Heparin Sodium (Porcine) (Heparin 5000 Unit/Ml 1 Ml Vial) 5,000 unit SQ Q8HR [facility] Last Admin: 02/09/23 16:38 Dose: 5,000 unit Sodium Chloride (Ns 1000 Ml Ivbag) 1,000 mls @ 100 mls/hr IV .Q10H [facility] [place] Last Admin: 02/09/23 20:38 Dose: 1,000 mls Metoprolol Succinate (Metoprolol Xl 25 Mg Tab) 25 mg PO [id number] [facility] Last Admin: 02/09/23 05:41 Dose: 25 mg Ondansetron HCl (Ondansetron 4 Mg/2 Ml Vial) 4 mg IV Q6HP PRN PRN Reason: NAUSEA / VOMITING Sodium Chloride (Flush Normal Saline 10 Ml) 10 ml IV BID [facility] [place] Last Admin: 02/09/23 20:39 Dose: 10 ml Zolpidem Tartrate (Zolpidem Tartrate 5 Mg Tablet) 5 mg PO BEDTIME PRN PRN PRN Reason: INSOMNIA Last Admin: 02/09/23 20:42 Dose: 5 mg Microbiology Results 02/08/23 09:44 Blood - Blood Aerobic Blood Culture - Preliminary No growth in 24 hours. 02/08/23 09:44 Blood - Blood Anaerobic Blood Culture - Preliminary No growth in 24 hours. Assessment/ Plan: Nephrology No dyspnea No chest pain LLE pain No acute events overnight Vitals, medications, blood work and imaging reviewed in the chart. General: In no apparent distress, Oriented x3, Cooperative HEENT: Atraumatic Neck: Supple Respiratory: Normal air movement Cardiovascular: No edema, Regular rate/rhythm Gastrointestinal: Soft and benign, Non-distended Musculoskeletal: No clubbing, No contractures Integumentary: No rashes, No cyanosis Neurological: Normal speech Laboratory Data 02/08/23 02/08/23 02/07/23 05:46 05:46 18:35 WBC 15.50 H Hgb 10.9 L D Hct 34.5 L Plt Count 290 Sodium 137 135 L Potassium 4.1 4.5 BUN 23 H 24 H Creatinine 1.39 H 3.14 H Glucose 147 H 161 H Magnesium 2.2 Total Bilirubin 0.4 AST 49 H ALT 32 Alkaline Phosphatase 58 02/07/23 18:35 WBC 19.20 H Hgb 12.6 L Hct 40.9 Plt Count 323 Sodium Potassium BUN Creatinine Glucose Magnesium Total Bilirubin AST ALT Alkaline Phosphatase Imagings Data: EXAM DESCRIPTION: RAD - Chest Single View - 02/08/2023 12:16 pm CLINICAL HISTORY: pneumonia Chest pain. COMPARISON: Chest Single View dated 02/02/2023; Chest Single View dated 01/30/2023; Chest Single View dated 01/27/2023; Chest Pa And Lat (2 Views) dated 10/26/2022 FINDINGS: Portable technique limits examination quality. The lungs are grossly clear. The heart is normal in size. No displaced fractures. IMPRESSION: No acute intrathoracic process suspected. Conclusions/Impression: Stage I SHAY likelly due to hypovolemia -No NSAIDs -Continue IVF with NS Rhabdomyolysis -Continue IVF HTN -Continue Metoprolol XL Daily Anemia in chronic illness Microcytosis -Monitor H&H Hospitalist note reviewed
[2023-02-10] MEDS: HEPARIN 5000 UNIT/ML 1 ML VIAL SQ SCH ×2 (00:16→08:20)
[2023-02-10] MEDS: NA CHLORIDE 0.9% 1,000 ML IV SCH (03:36)
[2023-02-10 03:49] LABS: Magnesium 2.1 mg/dL (1.6-2.4); Phosphorus 4.6 mg/dL (2.5-4.9); Potassium 4.1 mEq/L (3.5-5.1)
[2023-02-10] MEDS: METOPROLOL XL 25 MG TAB PO SCH (06:51)
[2023-02-10] MEDS: ACETAMINOPHEN 500 MG TAB PO PRN (08:26)
--- NOTE | 2023-02-10 08:26 | P.PN ---
Date of Service: 02/09/23 Subjective Doing well today. Patient denies any new complaints. Physical Examination - Vital Signs Reviewed - Physical Exam General: Alert, In no apparent distress, Oriented x3 Respiratory: Clear to auscultation bilaterally, Normal air movement Cardiovascular: Regular rate and rhythm no murmurs Gastrointestinal: Normal bowel sounds, Soft and benign Musculoskeletal: Point tenderness. Integumentary: No rashes, No breakdown Assessment and Plan -Assessment Assessment Rhabdomyolysis; Acute kidney injury Elevated Inflammatory markers Anemia, Essential hypertension Anxiety GERD DVT prophylaxis - Plan Plan Rhabdomyolysis Hep-Lock IV. Muscle enzymes improved. Renal function back to baseline. He needs to keep himself hydrated. Repeat lactic acid level WNL CPK; urine pH can be followed Monitor renal function Acute kidney injury Prerenal azotemia corrected; Anemia Hemoglobin stable; Microcytosis with normal iron levels. Hgb Electropheresis pending Essential hypertension Strict BP control Anxiety Anxiolytics GERD PPI Lactic acidosis monitor closely DVT prophylaxis heparin Diet cardiac Full code Discharge Plan: Home Plan to discharge in: 24 Hours - Advance Directives Does patient have a Living Will: No Does patient have a Durable POA for Healthcare: No - Code Status/Comfort Care Code Status: Full Code Physician Review: Patient Assessed, Agree with Above Assessment and Plan Critical Care: No Time Spent Managing Pts Care (In Minutes): 50
[2023-02-10 10:53] VITALS: BP 141/74; TEMP 97.9
[2023-02-10] MEDS ORDERED: DOCUSATE NA 100 MG CAP PO SCH (12:00)
[2023-02-10] MEDS ORDERED: MAGNESIUM OXIDE 400 MG TAB PO ONE (12:01)
--- NOTE | 2023-02-10 21:47 | P.PN ---
Date of Service: 02/10/23 Vital Signs Temp Pulse Resp BP Pulse Ox 97.9 F 77 16 141/74 H 98 02/10/23 08:00 02/10/23 08:00 02/10/23 08:00 02/10/23 08:00 02/10/23 08:00 Microbiology Results 02/08/23 09:44 Blood - Blood Aerobic Blood Culture - Preliminary No growth in 24 hours. 02/08/23 09:44 Blood - Blood Anaerobic Blood Culture - Preliminary No growth in 24 hours. Assessment/ Plan: Nephrology No dyspnea No chest pain LLE pain No acute events overnight Vitals, medications, blood work and imaging reviewed in the chart. General: In no apparent distress, Oriented x3, Cooperative HEENT: Atraumatic Neck: Supple Respiratory: Normal air movement Cardiovascular: No edema, Regular rate/rhythm Gastrointestinal: Soft and benign, Non-distended Musculoskeletal: No clubbing, No contractures Integumentary: No rashes, No cyanosis Neurological: Normal speech Laboratory Data 02/08/23 02/08/23 02/07/23 05:46 05:46 18:35 WBC 15.50 H Hgb 10.9 L D Hct 34.5 L Plt Count 290 Sodium 137 135 L Potassium 4.1 4.5 BUN 23 H 24 H Creatinine 1.39 H 3.14 H Glucose 147 H 161 H Magnesium 2.2 Total Bilirubin 0.4 AST 49 H ALT 32 Alkaline Phosphatase 58 02/07/23 18:35 WBC 19.20 H Hgb 12.6 L Hct 40.9 Plt Count 323 Sodium Potassium BUN Creatinine Glucose Magnesium Total Bilirubin AST ALT Alkaline Phosphatase Imagings Data: EXAM DESCRIPTION: RAD - Chest Single View - 02/08/2023 12:16 pm CLINICAL HISTORY: pneumonia Chest pain. COMPARISON: Chest Single View dated 02/02/2023; Chest Single View dated 01/30/2023; Chest Single View dated 01/27/2023; Chest Pa And Lat (2 Views) dated 10/26/2022 FINDINGS: Portable technique limits examination quality. The lungs are grossly clear. The heart is normal in size. No displaced fractures. IMPRESSION: No acute intrathoracic process suspected. Conclusions/Impression: Stage I SHAY likelly due to hypovolemia -No NSAIDs -Continue IVF with NS Rhabdomyolysis -Continue IVF HTN -Continue Metoprolol XL Daily Anemia in chronic illness Microcytosis -Monitor H&H Slow transit constipation -MagOx X1 -Start colace Hospitalist note reviewed
[2023-02-13 11:56] LABS: Scleroderma Antibody (Scl-70) <1.0
== END 2023-02-10 15:14 | disposition home or self-care (01) | DRG 872 ==
LOC: ER 17:44 → ERHOLD 20:42 → 2ND 21:20 → OBSVTOIN 02-08 11:14
PROVIDERS: ADMIT Hospitalist; ATTEND Hospitalist
DX: A41.9 Sepsis, unspecified organism (principal); N17.9 Acute kidney failure, unspecified; M62.82 Rhabdomyolysis; E87.20 Acidosis, unspecified; E86.0 Dehydration; K59.01 Slow transit constipation; F41.9 Anxiety disorder, unspecified; I10 Essential (primary) hypertension; D63.8 Anemia in other chronic diseases classified elsewhere; J45.909 Unspecified asthma, uncomplicated; G43.909 Migraine, unspecified, not intractable, without status migrainosus; Z88.0 Allergy status to penicillin; Z94.7 Corneal transplant status; Z79.52 Long term (current) use of systemic steroids; Z79.899 Other long term (current) drug therapy
CPT/HCPCS: 36415; 71045; 80048; 80053; 81001; 82550; 82607; 83540; 83605; 83615; 83735; 84100; 84145; 84466; 84484; 84550; 85025; 85379; 86038; 86140; 86200; 86225; 86235; 86256; 86430; 87040; 96360; 96361; 96372; 99285; J0696; J1644; J7030; J7120

== ENCOUNTER 2023-02-16 20:46 | Emergency (ER) | payer OTHER ==
[2023-02-16 23:19] LABS: Albumin 3.7 g/dL (3.4-5.0); Bilirubin Total 0.2 mg/dL (0.2-1.0); Potassium 3.7 mEq/L (3.5-5.1)
[2023-02-16 23:29] LABS: Absolute Lymphocytes (CBC) 3.7 K/uL (0.7-4.9); Lymphocytes % 30.8 % (15.3-44.8); MCV 74.7 fL (80-100); MPV 7.7 fL (7.6-11.3); Platelets 320 thou/uL (152-406); RBC Red Blood Cell Count 5.08 M/uL (4.33-5.43)
--- NOTE | 2023-02-16 23:30 | ER ---
Nurse's Notes [facility] Name: Holden Morris Age: 38 yrs Sex: Male : 1985 Arrival Date: 02/16/2023 Time: 20:46 Bed 16 Private MD: Diagnosis: Abdominal pain, Generalized Presentation: 02/16 21:22 Chief complaint: EMS states: Burning abdominal pain that radiates to chest that started hb while lying down watching television 2 hours ago. Coronavirus screen: At this time, the client does not indicate any symptoms associated with coronavirus-19. Ebola Screen: No symptoms or risks identified at this time. Initial Sepsis Screen: Does the patient meet any 2 criteria? No. Patient's initial sepsis screen is negative. Does the patient have a suspected source of infection? No. Patient's initial sepsis screen is negative. Risk Assessment: Do you want to hurt yourself or someone else? Patient reports no desire to harm self or others. Onset of symptoms was February 16, 2023. 21:22 Method Of Arrival: EMS: [facility] hb 21:22 Acuity: STONE 3 hb Historical: - Allergies: 21:25 PENICILLINS; young; hb - Home Meds: 21:25 Metoprolol Tartrate Oral [Active]; Prednisone Oral [Active]; Klonopin Oral [Active]; hb atorvastatin oral [Active]; - PMHx: 21:25 Anxiety; Asthma; GERD; Hypertension; Resolved; Migraines; hb - PSHx: 21:25 Cornea transplant L eye; hb - Immunization history:: Adult Immunizations up to date. - Social history:: Smoking status: Patient denies any tobacco usage or history of. Screenin:21 [facility] ED Fall Risk Assessment (Adult) History of falling in the last 3 months, jb4 including since admission No falls in past 3 months (0 pts) Confusion or Disorientation No (0 pts) Score/Fall Risk Level 0 - 2 = Low Risk Oriented to surroundings, Maintained a safe environment. Abuse screen: Denies threats or abuse. Nutritional screening: No deficits noted. Tuberculosis screening: No symptoms or risk factors identified. Assessment: 22:21 General: Appears in no apparent distress. comfortable, Behavior is calm, cooperative, jb4 appropriate for age. Pain: Complains of pain in abdomen Pain radiates to chest Pain currently is 8 out of 10 on a pain scale. Neuro: Level of Consciousness is awake, alert, obeys commands, Oriented to person, place, time, situation. Cardiovascular: Patient's skin is warm and dry. Respiratory: Airway is patent Respiratory effort is even, unlabored, Respiratory pattern is regular, symmetrical. GI: No signs and/or symptoms were reported involving the gastrointestinal system. : No signs and/or symptoms were reported regarding the genitourinary system. EENT: No signs and/or symptoms were reported regarding the EENT system. Derm: Skin is intact, Skin is pink, warm \T\ dry. Musculoskeletal: Circulation, motion, and sensation intact. Range of motion: intact in all extremities. 02/17 00:02 Reassessment: Patient appears in no apparent distress at this time. Patient and/or jb4 family updated on plan of care and expected duration. Pain level reassessed. Patient is alert, oriented x 3, equal unlabored respirations, skin warm/dry/pink. Vital Signs: 02/16 21:22 BP 154 / 86; Pulse 77; Resp 16; Temp 98.7(O); Pulse Ox 96% on R/A; Weight 111.13 kg; hb Height 8 ft. 0 in. ; Pain 8/10; 02/17 00:02 BP 141 / 93; Pulse 78; Resp 16; Pulse Ox 95% on R/A; jb4 02/16 21:22 Body Mass Index 18.69 (111.13 kg, 243.84 cm) hb 02/16 21:22 Pain Scale: Adult hb ED Course: 02/16 20:57 Patient arrived in ED. mr 21:04 Phillip Parsons MD is Attending Physician. kdr 21:25 Triage completed. hb 21:26 Arm band placed on. hb 22:21 Delgado Koenig, RN is Primary Nurse. jb4 22:21 Patient has correct armband on for positive identification. Bed in low position. [facility] light in reach. Side rails up X 1. 22:21 Initial lab(s) drawn, by me, sent to lab. Inserted saline lock: 20 gauge in left jb4 antecubital area, using aseptic technique. Blood collected. 22:27 CBC with Diff Sent. jb4 22:27 CMP Sent. jb4 22:27 Lipase Sent. jb4 02/17 00:02 No provider procedures requiring assistance completed. IV discontinued, intact, jb4 bleeding controlled, No redness/swelling at site. Pressure dressing applied. Administered Medications: 00:01 Drug: Ondansetron Oral Disintegrating Tablet Oral Disintegrating Tablet 4 mg Route: PO; jb4 00:01 Drug: Famotidine PO 20 mg Route: PO; jb4 Medication: 02/16 22:21 VIS not applicable for this client. jb4 Outcome: 23:30 Discharge ordered by . mony 02/17 00:03 Patient left the ED. jb4 Signatures: Phillip Parsons MD MD kdr Rivera, Mary mr Baxter, Heather, RN RN Delgado Koenig RN RN jb4
--- NOTE | 2023-02-16 23:31 | EDPHYS ---
Physician Documentation [facility] Name: Holden Morris Age: 38 yrs Sex: Male : 1985 Arrival Date: 02/16/2023 Time: 20:46 Bed 16 Private MD: ED Physician Phillip Parsons HPI: 02/16 23:31 This 38 yrs old Black Male presents to ER via EMS with complaints of abdomina lpain. kdr 23:31 Abdominal pain. Onset: The symptoms/episode began/occurred suddenly, just prior to kdr arrival. Severity of symptoms: At their worst the symptoms were moderate in the emergency department the symptoms are unchanged. The patient has not experienced similar symptoms in the past. The patient has been recently seen by a physician: The patient has been recently seen at the [facility] Emergency Department, a couple of weeks ago. Historical: - Allergies: 21:25 PENICILLINS; young; hb - Home Meds: 21:25 Metoprolol Tartrate Oral [Active]; Prednisone Oral [Active]; Klonopin Oral [Active]; hb atorvastatin oral [Active]; - PMHx: 21:25 Anxiety; Asthma; GERD; Hypertension; Resolved; Migraines; hb - PSHx: 21:25 Cornea transplant L eye; hb - Immunization history:: Adult Immunizations up to date. - Social history:: Smoking status: Patient denies any tobacco usage or history of. ROS: 23:31 Constitutional: Negative for fever, chills, and weight loss, Eyes: Negative for injury, kdr pain, redness, and discharge, ENT: Negative for injury, pain, and discharge, Neck: Negative for injury, pain, and swelling, Cardiovascular: Negative for chest pain, palpitations, and edema, Respiratory: Negative for shortness of breath, cough, wheezing, and pleuritic chest pain, Back: Negative for injury and pain, : Negative for injury, bleeding, discharge, and swelling, MS/Extremity: Negative for injury and deformity, Skin: Negative for injury, rash, and discoloration, Neuro: Negative for headache, weakness, numbness, tingling, and seizure activity. Psych: Negative for depression, anxiety, suicide ideation, homicidal ideation, and hallucinations, Allergy/Immunology: Negative for hives, rash, and allergies, Endocrine: Negative for neck swelling, polydipsia, polyuria, polyphagia, and marked weight changes, Hematologic/Lymphatic: Negative for swollen nodes, abnormal bleeding, and unusual bruising. 23:31 Abdomen/GI: Positive for abdominal pain, nausea, Negative for vomiting, diarrhea, constipation, abdominal cramps, abdominal distension, anorexia, black/tarry stool, rectal pain, rectal bleeding. Exam: 23:31 Constitutional: This is a well developed, well nourished patient who is awake, alert, kdr and in no acute distress. Head/Face: Normocephalic, atraumatic. Eyes: Pupils equal round and reactive to light, extra-ocular motions intact. Lids and lashes normal. Conjunctiva and sclera are non-icteric and not injected. Cornea within normal limits. Periorbital areas with no swelling, redness, or edema. Neck: Trachea midline, no thyromegaly or masses palpated, and no cervical lymphadenopathy. Supple, full range of motion without nuchal rigidity, or vertebral point tenderness. No Meningismus. Chest/axilla: Normal chest wall appearance and motion. Nontender with no deformity. No lesions are appreciated. Cardiovascular: Regular rate and rhythm with a normal S1 and S2. No gallops, murmurs, or rubs. Normal PMI, no JVD. No pulse deficits. Respiratory: Lungs have equal breath sounds bilaterally, clear to auscultation and percussion. No rales, rhonchi or wheezes noted. No increased work of breathing, no retractions or nasal flaring. Back: No spinal tenderness. No costovertebral tenderness. Full range of motion. Skin: Warm, dry with normal turgor. Normal color with no rashes, no lesions, and no evidence of cellulitis. MS/ Extremity: Pulses equal, no cyanosis. Neurovascular intact. Full, normal range of motion. Neuro: Awake and alert, GCS 15, oriented to person, place, time, and situation. Cranial nerves II-XII grossly intact. Motor strength 5/5 in all extremities. Sensory grossly intact. Cerebellar exam normal. Normal gait. Psych: Awake, alert, with orientation to person, place and time. Behavior, mood, and affect are within normal limits. Vital Signs: 21:22 BP 154 / 86; Pulse 77; Resp 16; Temp 98.7(O); Pulse Ox 96% on R/A; Weight 111.13 kg; hb Height 8 ft. 0 in. ; Pain 02/10; 02/17 00:02 BP 141 / 93; Pulse 78; Resp 16; Pulse Ox 95% on R/A; jb4 02/16 21:22 Body Mass Index 18.69 (111.13 kg, 243.84 cm) hb 02/16 21:22 Pain Scale: Adult hb MDM: 02/16 23:30 Patient medically screened. kdr 23:31 Data reviewed: vital signs, nurses notes, lab test result(s), radiologic studies. kdr 02/16 21:44 Order name: CBC with Diff kdr 02/16 21:44 Order name: CMP; Complete Time: 23:26 kdr 02/16 21:44 Order name: Lipase; Complete Time: 23:26 kdr 02/16 21:44 Order name: IV Saline Lock; Complete Time: 22:27 kdr 02/16 21:44 Order name: Labs collected and sent; Complete Time: 22:27 kdr 02/16 22:35 Order name: Misc. Order: recollect all blood, please; Complete Time: 22:56 vc1 Administered Medications: 02/17 00:01 Drug: Ondansetron Oral Disintegrating Tablet Oral Disintegrating Tablet 4 mg Route: PO; jb4 00:01 Drug: Famotidine PO 20 mg Route: PO; jb4 Disposition Summary: 02/16/23 23:30 Discharge Ordered Location: Home kdr Problem: new kdr Symptoms: have improved kdr Condition: Stable kdr Diagnosis - Abdominal pain, Generalized kdr Followup: kdr - With: Private Physician - When: 2 - 3 days - Reason: If symptoms return, Further diagnostic work-up, Recheck today's complaints, Continuance of care, Re-evaluation by your physician Discharge Instructions: - Discharge Summary Sheet kdr - Abdominal Pain, Adult, [id number] kdr Forms: - Medication Reconciliation Form kdr - Thank You Letter kdr - Antibiotic Education kdr - Prescription Opioid Use kdr - Patient Portal Instructions kdr - Leadership Thank You Letter kdr Prescriptions: - Zofran 4 mg Oral Tablet - take 1 tablet by ORAL route every 12 hours As needed; 6 tablet; Refills: 0, kdr Product Selection Permitted Signatures: Dispatcher [employer] EDNY Phillip Parsons MD MD kdr Ivette Shanks RN RN Delgado Koenig RN RN jb4 Calcote, Katie, RN RN vc1
[2023-02-17] MEDS ORDERED: ONDANSETRON 4 MG (ODT) TAB ONE (00:05)
[2023-02-17] MEDS ORDERED: FAMOTIDINE 20 MG TAB ONE (00:06)
[2023-02-17 00:29] VITALS: TEMP 98.7
[2023-02-17 00:31] VITALS: BP 141/93; O2SAT 95
== END 2023-02-17 00:03 | disposition home or self-care (01) ==
LOC: ER 20:46
DX: R10.84 Generalized abdominal pain (principal); I10 Essential (primary) hypertension; F41.9 Anxiety disorder, unspecified; Z88.0 Allergy status to penicillin
CPT/HCPCS: 85025; 36415; 83690; 80053; 99284; Q0162

== ENCOUNTER 2023-03-20 19:29 | Emergency (ER) | payer OTHER ==
[2023-03-20] MEDS ORDERED: KETOROLAC 30 MG/ML INJ ONE (20:30)
[2023-03-20] MEDS ORDERED: ONDANSETRON 4 MG/2 ML VIAL ONE (20:30)
--- NOTE | 2023-03-20 20:53 | RAD REPORT ---
EXAM DESCRIPTION: US - Extremity Venous Uni Ltd - 03/20/2023 8:35 pm CLINICAL HISTORY: Pain, swelling COMPARISON: None. TECHNIQUE: Real-time sonographic evaluation of the left upper extremity deep venous system was perfo rmed. FINDINGS: Normal compressibility, flow augmentation, phasic flow and spontaneous flow is identified in the left upper extremity deep venous system. No intraluminal filling defects seen. IMPRESSION: No DVT in the left upper extremity.
[2023-03-20 21:07] LABS: Absolute Lymphocytes (CBC) 2.7 K/uL (0.7-4.9); Hematocrit 32.2 % (39.6-49.0); Lymphocytes % 31.1 % (15.3-44.8); MPV 7.7 fL (7.6-11.3); Platelets 246 thou/uL (152-406); RBC Red Blood Cell Count 4.29 M/uL (4.33-5.43)
[2023-03-20 21:08] LABS: Urine Bacteria None Seen /HPF (<20); Urine Bilirubin NEGATIVE (Negative); Urine Blood Negative (Negative); Urine Clarity Clear (Clear); Urine Color Light-Yellow (Yellow); Urine Glucose NEGATIVE (Negative); Urine Protein NEGATIVE (Negative); Urine RBC <5 /HPF (None Seen); Urine Urobilinogen Normal (Normal); Urine pH 5.5 (5.0-7.0)
[2023-03-20 21:19] LABS: Albumin 3.2 g/dL (3.4-5.0); Bilirubin Total 0.2 mg/dL (0.2-1.0); Potassium 3.4 mEq/L (3.5-5.1); Protein, Total 6.4 g/dL (6.4-8.2)
--- NOTE | 2023-03-20 21:20 | RAD REPORT ---
EXAM DESCRIPTION: CT - Stone Protocol - 03/20/2023 8:50 pm CLINICAL HISTORY: FLANK PAIN COMPARISON: Abdomen Pelvis W Contrast dated 01/17/2023; Abdomen Pelvis W Contrast dated 11/10/2022 ; Abdomen Pelvis W Contrast dated 09/03/2022; Stone Protocol dated 02/21/2021 TECHNIQUE: Thin cut axial CT imaging of the abdomen and pelvis was performed without IV contrast. Mu ltiplanar reformats were generated and reviewed. All CT scans are performed using dose optimization technique as appropriate and may include automated exposure control or mA/KV adjustment according to patient size. FINDINGS: No suspicious findings in the lung bases. The liver, spleen, adrenal glands, and pancreas show no suspicious findings. Gallbladder and biliary tree are also without suspicious finding. Symmetric renal contour, without suspicious parenchymal findings within limits of noncontrast techniq ue. No evidence of radiopaque calculi or hydroureteronephrosis. No dilated bowel loops or bowel wall thickening. No free air, free fluid or inflammatory stranding. N o hernia, mass or bulky lymphadenopathy. The urinary bladder is without significant finding. No suspicious bony findings. IMPRESSION: No acute intra-abdominal process.
--- NOTE | 2023-03-20 21:48 | EDPHYS ---
Physician Documentation [facility] Name: Holden Morris Age: 38 yrs Sex: Male : 1985 Arrival Date: 03/20/2023 Time: 19:29 Bed 16 Private MD: ED Physician Arthur Gomez HPI: 03/20 19:55 This 38 yrs old Black Male presents to ER via Unassigned with complaints of Body aches, cp lt hand swelling, low back pain. 19:55 The patient complains of pain in the left flank. The pain radiates to the abdomen. cp Onset: The symptoms/episode began/occurred 3 day(s) ago. 19:55 Associated signs and symptoms: Pertinent positives: fever, body aches, Pertinent cp negatives: diarrhea, headache, vomiting. Severity of pain: in the emergency department the pain is unchanged despite home interventions. Patient also c/o left hand swelling and reports he was told by DR Palomino that he most likely has an autoimmune disorder. Patient recently tested for Lupus and was negative. Has upcoming appt with ict programmer . Historical: - Allergies: 19:57 PENICILLINS; young; pf1 - PMHx: 19:57 Anxiety; Asthma; GERD; Hypertension; Resolved; Migraines; SHAY; Autoimmune disease; pf1 - PSHx: 19:57 Cornea transplant L eye; pf1 - Immunization history:: Adult Immunizations up to date, Client reports receiving the 2nd dose of the Covid vaccine, Last tetanus immunization: < 5 years ago Flu vaccine is not up to date. - Social history:: Smoking status: Patient denies any tobacco usage or history of. Patient uses alcohol, only on a social basis. Patient/guardian denies using street drugs. ROS: 20:00 Constitutional: Positive for body aches, Negative for fever, poor PO intake. cp 20:00 Cardiovascular: Negative for chest pain, palpitations. cp 20:00 Respiratory: Negative for cough, shortness of breath, wheezing. 20:00 Back: Positive for flank pain, on the left. 20:00 MS/extremity: Positive for pain, swelling, tenderness, of the left hand, Negative for injury or acute deformity, decreased range of motion. Exam: 20:08 Constitutional: The patient appears in no acute distress, alert, awake, cp non-diaphoretic, non-toxic, well developed, well nourished. 20:08 Head/Face: Normocephalic, atraumatic. cp 20:08 Eyes: Periorbital structures: appear normal, Conjunctiva: normal, no exudate, no injection, Sclera: no appreciated abnormality, Lids and lashes: appear normal, bilaterally. 20:08 ENT: External ear(s): are unremarkable, Nose: is normal, Mouth: Lips: moist, Oral mucosa: pink and intact, moist, Posterior pharynx: Airway: no evidence of obstruction, patent, Tonsils: are normal in appearance, erythema, is not appreciated, exudate, is not appreciated. 20:08 Neck: ROM/movement: is normal, is supple, without pain, no range of motions limitations, no meningismus. 20:08 Chest/axilla: Inspection: normal, Palpation: is normal, no crepitus, no tenderness. 20:08 Cardiovascular: Rate: normal, Rhythm: regular, Edema: is not appreciated, JVD: is not appreciated. 20:08 Respiratory: the patient does not display signs of respiratory distress, Respirations: normal, no use of accessory muscles, no retractions, labored breathing, is not present, Breath sounds: are clear throughout, no decreased breath sounds, no stridor, no wheezing. 20:08 Abdomen/GI: Inspection: abdomen appears normal, Bowel sounds: active, all quadrants, Palpation: soft, in all quadrants, mild abdominal tenderness, in the anterior aspect of left lateral abdomen and posterior aspect of left lateral abdomen, involuntary guarding, is not appreciated. 20:08 Back: pain, that is mild, ROM is normal, CVA tenderness, is absent. 20:08 Musculoskeletal/extremity: Extremities: noted in the left hand and left arm: no swelling noted, no discoloration and/or erythema. 20:08 Skin: injury, is not appreciated, no rash present. Vital Signs: 19:40 BP 131 / 91; Pulse 83; Resp 16; Temp 97.9; Pulse Ox 100% on R/A; Weight 111.13 kg; pf1 Height 5 ft. 9 in. ; Pain 9/10; 23:07 BP 127 / 83; Pulse 83; Resp 16; Pulse Ox 99% ; bp 19:40 Body Mass Index 36.18 (111.13 kg, 175.26 cm) pf1 19:40 Pain Scale: Adult pf1 MDM: 19:40 Patient medically screened. 21:45 Data reviewed: vital signs, nurses notes, lab test result(s), radiologic studies, CT cp scan. 21:45 Differential diagnosis: nephrolithiasis, pyelonephritis, UTI, diverticulitis. I cp considered the following discharge prescriptions or medication management in the emergency department Medications were administered in the Emergency Department. See MAR. Counseling: I had a detailed discussion with the patient and/or guardian regarding the historical points, exam findings, and any diagnostic results supporting the discharge/admit diagnosis, lab results, to return to the emergency department if symptoms worsen or persist or if there are any questions or concerns that arise at home. Response to treatment: the patient's symptoms have mildly improved after treatment, and as a result, I will discharge patient. 03/20 19:55 Order name: CBC with Diff; Complete Time: 21:26 03/20 21:26 Interpretation: Normal except: RBC 4.29; HGB 10.8; HCT 32.2; MCV 75.0; MCH 25.2. 03/20 19:55 Order name: CMP; Complete Time: 21:26 03/20 21:27 Interpretation: Normal except: K 3.4; GLUC 141; ALB 3.2; A/G 1.0. 03/20 19:55 Order name: Lipase; Complete Time: 21:26 03/20 19:55 Order name: Urinalysis W/Microscopic; Complete Time: 21:26 03/20 19:55 Order name: COVID-19 SARS RT PCR; Complete Time: 21:45 03/20 21:45 Interpretation: Reviewed. 03/20 19:55 Order name: Influenza Screen (a \T\ B); Complete Time: 21:45 03/20 21:45 Interpretation: Normal except: FLUB FLU B ----- POSITIVE for FLU B protein antigen. 03/20 19:55 Order name: US Extremity Venous Unilateral Ltd; Complete Time: 21:26 03/20 21:27 Interpretation: Report reviewed. 03/20 19:55 Order name: CT Stone Protocol; Complete Time: 21:26 03/20 19:55 Order name: IV Saline Lock; Complete Time: 20:48 03/20 19:55 Order name: Labs collected and sent; Complete Time: 20:48 cp Administered Medications: 20:48 Drug: TORadol - Ketorolac IVP 15 mg Route: IVP; Site: left antecubital; bp 23:09 Follow up: Response: No adverse reaction bp 20:48 Drug: Ondansetron IVP 4 mg Route: IVP; Site: left antecubital; bp 23:08 Follow up: Response: No adverse reaction bp 21:30 Drug: Potassium PO Effervescent Tablet 25 mEq Route: PO; bp 23:08 Follow up: Response: No adverse reaction bp Disposition: 21:22 Co-signature as Attending Physician, Arthur Gomez MD I agree with the assessment sp4 and plan of care. I reviewed the patient's care provided by the Advanced Practice Provider and agree with the diagnosis and treatment plan. Disposition Summary: 03/20/23 21:48 Discharge Ordered Location: Home cp Problem: new cp Symptoms: have improved cp Condition: Stable cp Diagnosis - Influenza due to other identified influenza virus with other manifestations cp - Dorsalgia, unspecified cp Followup: cp - With: Private Physician - When: 2 - 3 days - Reason: Worsening of condition Discharge Instructions: - Discharge Summary Sheet cp - Potassium Content of Foods cp - Influenza, Adult cp - Musculoskeletal Pain cp Forms: - Medication Reconciliation Form cp - Thank You Letter cp - Antibiotic Education cp - Prescription Opioid Use cp - Patient Portal Instructions cp - Leadership Thank You Letter cp Prescriptions: - Ibuprofen 800 mg Oral Tablet - take 1 tablet by ORAL route every 8 hours As needed take with food; 30 tablet; cp Refills: 0, Product Selection Permitted - Prednisone 20 mg Oral Tablet - take 1 tablet by ORAL route once daily for 5 days; 5 tablet; Refills: 0, cp Product Selection Permitted Signatures: Dispatcher [employer] EDPR Aidan Pacheco PA PA cp Aurelio Atkins RN RN Daisy Morris RN RN pf1 Arthur Gomez MD MD sp4
--- NOTE | 2023-03-20 21:48 | ER ---
Nurse's Notes [facility] Name: Holden Morris Age: 38 yrs Sex: Male : 1985 Arrival Date: 03/20/2023 Time: 19:29 Bed 16 Private MD: Diagnosis: Influenza due to other identified influenza virus with other manifestations;Dorsalgia, unspecified Presentation: 03/20 19:40 Chief complaint: Patient states: left flank pain that radiates to LLQ pain of 9, left pf1 hand swelling with body aches,onset 3 days. Patient denies any injury to hand. 19:40 Coronavirus screen: Vaccine status: Patient reports receiving the 2nd dose of the covid pf1 vaccine. [employer] Client denies travel out of the [place] in the last 14 days. At this time, the client does not indicate any symptoms associated with coronavirus-19. Ebola Screen: Patient negative for fever greater than or equal to 101.5 degrees Fahrenheit, and additional compatible Ebola Virus Disease symptoms. Initial Sepsis Screen: Does the patient meet any 2 criteria? No. Patient's initial sepsis screen is negative. Does the patient have a suspected source of infection? No. Patient's initial sepsis screen is negative. Risk Assessment: Do you want to hurt yourself or someone else? Patient reports no desire to harm self or others. 19:40 Method Of Arrival: Ambulatory pf1 19:40 Acuity: STONE 3 pf1 Triage Assessment: 20:01 General: see nurse assessment. pf1 Historical: - Allergies: 19:57 PENICILLINS; young; pf1 - PMHx: 19:57 Anxiety; Asthma; GERD; Hypertension; Resolved; Migraines; SHAY; Autoimmune disease; pf1 - PSHx: 19:57 Cornea transplant L eye; pf1 - Immunization history:: Adult Immunizations up to date, Client reports receiving the 2nd dose of the Covid vaccine, Last tetanus immunization: < 5 years ago Flu vaccine is not up to date. - Social history:: Smoking status: Patient denies any tobacco usage or history of. Patient uses alcohol, only on a social basis. Patient/guardian denies using street drugs. Screenin:00 [facility] ED Fall Risk Assessment (Adult) History of falling in the last 3 months, pf1 including since admission No falls in past 3 months (0 pts) Confusion or Disorientation No (0 pts) Intoxicated or Sedated No (0 pts) Impaired Gait No (0 pts) Mobility Assist Device Used No (0 pt) Altered Elimination. Abuse screen: Denies threats or abuse. Nutritional screening: No deficits noted. Tuberculosis screening: No symptoms or risk factors identified. Assessment: 19:58 General: Appears in no apparent distress. comfortable, well groomed, well developed, pf1 Behavior is calm, cooperative, appropriate for age, quiet. Pain: Complains of pain in back and abdomen Pain currently is 9 out of 10 on a pain scale. Neuro: No deficits noted. Level of Consciousness is awake, alert, obeys commands, Oriented to person, place, time, situation. Cardiovascular: No deficits noted. Capillary refill < 3 seconds Patient's skin is warm and dry. Respiratory: No deficits noted. Airway is patent Respiratory effort is even, unlabored, Respiratory pattern is regular, symmetrical. GI: Abdomen is round non-distended, Reports lower abdominal pain. : No deficits noted. No signs and/or symptoms were reported regarding the genitourinary system. EENT: No deficits noted. No signs and/or symptoms were reported regarding the EENT system. Derm: No deficits noted. No signs and/or symptoms reported regarding the dermatologic system. Musculoskeletal: Reports left hand swelling,denies any injury. Vital Signs: 19:40 BP 131 / 91; Pulse 83; Resp 16; Temp 97.9; Pulse Ox 100% on R/A; Weight 111.13 kg; pf1 Height 5 ft. 9 in. ; Pain 9/10; 23:07 BP 127 / 83; Pulse 83; Resp 16; Pulse Ox 99% ; bp 19:40 Body Mass Index 36.18 (111.13 kg, 175.26 cm) pf1 19:40 Pain Scale: Adult pf1 ED Course: 19:33 Patient arrived in ED. kb3 19:33 Aidan Pacheco PA is PHCP. cp 19:33 Arthur Gomez MD is Attending Physician. cp 19:53 Aurelio Atkins, NICOL is Primary Nurse. bp 19:56 Triage completed. pf1 20:01 No provider procedures requiring assistance completed. pf1 20:37 US Extremity Venous Unilateral Ltd In Process Unspecified. EDMS 20:45 Inserted saline lock: 20 gauge in left antecubital area, using aseptic technique. Blood bp collected. 20:52 CT Stone Protocol In Process Unspecified. EDMS 23:08 IV discontinued, intact, bleeding controlled, No redness/swelling at site. Pressure bp dressing applied. 23:08 Patient has correct armband on for positive identification. bp Administered Medications: 20:48 Drug: TORadol - Ketorolac IVP 15 mg Route: IVP; Site: left antecubital; bp 23:09 Follow up: Response: No adverse reaction bp 20:48 Drug: Ondansetron IVP 4 mg Route: IVP; Site: left antecubital; bp 23:08 Follow up: Response: No adverse reaction bp 21:30 Drug: Potassium PO Effervescent Tablet 25 mEq Route: PO; bp 23:08 Follow up: Response: No adverse reaction bp Medication: 23:09 VIS not applicable for this client. bp Outcome: 21:48 Discharge ordered by MD. cp 23:08 Discharged to home ambulatory. bp 23:08 Condition: stable 23:08 Discharge instructions given to patient, Instructed on discharge instructions, follow up and referral plans. medication usage, Demonstrated understanding of instructions, follow-up care, medications, Prescriptions given X 2. 23:09 Patient left the ED. bp Signatures: Dispatcher [employer] EDMS Aidan Pacheco PA PA cp Peltier, Brian, RN RN bp Iris Marshall, NICOL RN kb3 Daisy Mosher RN RN pf1
[2023-03-20] MEDS ORDERED: POTASSIUM 25 MEQ EFFERV TAB ONE (21:54)
[2023-03-20 23:35] VITALS: TEMP 97.9
[2023-03-20 23:36] VITALS: BP 127/83; O2SAT 99
== END 2023-03-20 23:09 | disposition home or self-care (01) ==
LOC: ER 19:29
DX: J10.1 Influenza due to other identified influenza virus with other respiratory manifestations (principal); Z20.822 Contact with and (suspected) exposure to COVID-19; Z88.0 Allergy status to penicillin
CPT/HCPCS: 85025; 81001; 36415; 83690; 80053; 87635; 87804 ×2; 76377; 74176; 93971; 96375; 96374; 99284; J2405

== ENCOUNTER 2023-04-07 21:15 | Emergency (ER) | payer OTHER ==
[2023-04-07] MEDS ORDERED: NA CHLORIDE 0.9% 1,000 ML ONE (22:08)
[2023-04-07 22:10] LABS: Absolute Lymphocytes (CBC) 2.6 K/uL (0.7-4.9); Hematocrit 33.9 % (39.6-49.0); Lymphocytes % 33.5 % (15.3-44.8); MCV 74.6 fL (80-100); MPV 7.6 fL (7.6-11.3); Platelets 242 thou/uL (152-406); RBC Red Blood Cell Count 4.55 M/uL (4.33-5.43)
[2023-04-07 22:37] LABS: Albumin 3.4 g/dL (3.4-5.0); Bilirubin Total 0.2 mg/dL (0.2-1.0); Potassium 3.6 mEq/L (3.5-5.1); Protein, Total 7.1 g/dL (6.4-8.2)
[2023-04-07 22:41] LABS: Urine Bacteria None Seen /HPF (<20); Urine Bilirubin NEGATIVE (Negative); Urine Blood Negative (Negative); Urine Clarity Clear (Clear); Urine Color Light-Yellow (Yellow); Urine Glucose 1+ (Negative); Urine Mucus Slight /HPF (None Seen); Urine Protein NEGATIVE (Negative); Urine RBC <5 /HPF (None Seen); Urine Urobilinogen Normal (Normal)
[2023-04-07] MEDS ORDERED: KETOROLAC 30 MG/ML INJ ONE (23:15)
--- NOTE | 2023-04-08 00:23 | ER ---
Nurse's Notes [facility] Name: Holden Morris Age: 38 yrs Sex: Male : 1985 Arrival Date: 04/07/2023 Time: 21:15 Bed 18 Private MD: Diagnosis: Lower abdominal pain, unspecified Presentation: 04/07 21:19 Chief complaint: Patient states: ABD AND BACK PAIN STARTED TODAY AT 6:30A. DIARRHEA X2. jj7 NO N/V EMS states: ABD AND BACK PAIN. STATES HE WAS HERE 1 MONTH AGO FOR KIDNEY PROBLEMS. FEELS LIKE IT'S THE SAME THING. Coronavirus screen: Vaccine status: Patient reports receiving the 2nd dose of the covid vaccine. At this time, the client does not indicate any symptoms associated with coronavirus-19. Ebola Screen: No symptoms or risks identified at this time. Initial Sepsis Screen: Does the patient meet any 2 criteria? No. Patient's initial sepsis screen is negative. Does the patient have a suspected source of infection? No. Patient's initial sepsis screen is negative. Risk Assessment: Do you want to hurt yourself or someone else? Patient reports no desire to harm self or others. Onset of symptoms was April 07, 2023 at 06:30. 21:19 Method Of Arrival: EMS: [facility] jj7 21:19 Acuity: STONE 3 jj7 Triage Assessment: 21:25 General: Appears in no apparent distress. comfortable, Behavior is calm, cooperative, jj7 appropriate for age. Pain: Complains of pain in back and abdomen. GI: Reports lower abdominal pain, upper abdominal pain. Musculoskeletal: Reports pain in back. Historical: - Allergies: 21:25 PENICILLINS; young; jj7 - PMHx: 21:25 SHAY; Anxiety; Asthma; autoimmune disease; GERD; Hypertension; Resolved; Migraines; jj7 - PSHx: 21:25 Cornea transplant L eye; jj7 - Immunization history:: Client reports receiving the 2nd dose of the Covid vaccine. - Social history:: Smoking status: Patient denies any tobacco usage or history of. Patient/guardian denies using alcohol, street drugs. Screenin:27 [facility] ED Fall Risk Assessment (Adult) History of falling in the last 3 months, jj7 including since admission No falls in past 3 months (0 pts) Confusion or Disorientation No (0 pts) Intoxicated or Sedated No (0 pts) Impaired Gait No (0 pts) Mobility Assist Device Used No (0 pt) Altered Elimination No (0 pt) Score/Fall Risk Level 0 - 2 = Low Risk Oriented to surroundings, Maintained a safe environment. Abuse screen: Denies threats or abuse. Nutritional screening: No deficits noted. Tuberculosis screening: No symptoms or risk factors identified. Assessment: 21:27 Reassessment: SEE TRIAGE ASSESSMENT. j7 04/08 00:33 Reassessment: Patient and/or family updated on plan of care and expected duration. Pain ha1 level reassessed. Patient is alert, oriented x 3, equal unlabored respirations, skin warm/dry/pink. Vital Signs: 04/07 21:19 BP 137 / 57; Pulse 98; Resp 17; Temp 97.6; Pulse Ox 98% ; Pain 10/10; jj7 22:45 BP 138 / 125; Pulse 80; Resp 20; Pulse Ox 98% ; Pain 6/10; jj7 04/08 00:33 BP 151 / 66; Pulse 79; Resp 18 S; Pulse Ox 98% on R/A; ha1 04/07 21:19 Pain Scale: Adult jj7 22:45 Pain Scale: Adult jj7 ED Course: 04/07 21:17 Patient arrived in ED. jj6 21:19 Christofer Jarrett, NICOL is Primary Nurse. jj7 21:19 Chantale Chen PA-C is PHCP. sb4 21:19 Arthur Gomez MD is Attending Physician. 4 21:25 Triage completed. j7 21:25 Arm band placed on right wrist. Patient placed in an exam room, on a stretcher, on jj7 oxygen, on ramp service agent, on pulse oximetry. 21:27 Patient has correct armband on for positive identification. Bed in low position. Call j light in reach. Side rails up X2. 21:53 Inserted saline lock: 20 gauge in left antecubital area, using aseptic technique. Blood jr12 collected. 23:10 CT Abd/Pelvis - IV Contrast Only In Process Unspecified. EDMS 04/08 00:34 No provider procedures requiring assistance completed. IV discontinued, intact, ha1 bleeding controlled, No redness/swelling at site. Pressure dressing applied. 00:35 Provided Education on: NEED TO FOLLOW UP WITH PCP. ha1 Administered Medications: 04/07 22:01 Drug: NS 0.9% IV 1000 ml IV at 1 bolus Per protocol; 1000 mL bolus Route: IV; Rate: 1 jj7 bolus; Site: left antecubital; 04/08 00:30 Follow up: Response: No adverse reaction; IV Status: Completed infusion; IV Intake: ha1 1000ml 04/07 23:08 Drug: Ketorolac IVP 15 mg IVP once Route: IVP; Site: left antecubital; jj7 04/08 00:00 Follow up: Response: No adverse reaction ha1 Medication: 04/07 21:27 VIS not applicable for this client. jj7 Intake: 04/08 00:30 IV: 1000ml; Total: 1000ml. ha1 Outcome: 00:23 Discharge ordered by MD. sb4 00:34 Discharged to home ambulatory, ha1 00:34 Condition: stable 00:34 Discharge instructions given to patient, Instructed on discharge instructions, follow up and referral plans. Demonstrated understanding of instructions, follow-up care, 00:35 Patient left the ED. ha1 Signatures: Dispatcher [employer] EDMS Priscila Argueta jj6 Monica Elliott RN RN ha1 Christofer Jarrett RN RN [email or web address] Chantale Chen PA-C PA-C sb4 Opal Tobin jr12
--- NOTE | 2023-04-08 00:23 | EDPHYS ---
Physician Documentation [facility] Name: Holden Morris Age: 38 yrs Sex: Male : 1985 Arrival Date: 04/07/2023 Time: 21:15 Bed 18 Private MD: ED Physician Arthur Gomez HPI: 04/08 00:23 This 38 yrs old Black Male presents to ER via EMS with complaints of Abdominal Pain. sb4 00:23 The patient presents with abdominal pain in the lower abdomen. Onset: The sb4 symptoms/episode began/occurred today. The symptoms radiate to back. Associated signs and symptoms: Pertinent positives: diarrhea, Pertinent negatives: nausea and vomiting, dysuria, fever. The symptoms are described as vague. Modifying factors: The symptoms are alleviated by nothing, the symptoms are aggravated by pressure. The patient has experienced a previous episode, last month, but today's symptoms are not as bad as this previous episode. The patient has been recently seen at the [facility], a couple of weeks ago. Historical: - Allergies: 04/07 21:25 PENICILLINS; young; jj7 - PMHx: 21:25 SHAY; Anxiety; Asthma; autoimmune disease; GERD; Hypertension; Resolved; Migraines; jj7 - PSHx: 21:25 Cornea transplant L eye; jj7 - Immunization history:: Client reports receiving the 2nd dose of the Covid vaccine. - Social history:: Smoking status: Patient denies any tobacco usage or history of. Patient/guardian denies using alcohol, street drugs. ROS: 04/08 00:23 Constitutional: Negative for fever, chills, and weight loss, sb4 Abdomen/GI: Positive for abdominal pain, diarrhea, Back: Positive for pain at rest, flank pain, bilaterally, All other systems are negative, Exam: 00:23 Constitutional: This is a well developed, well nourished patient who is awake, alert, sb4 and in no acute distress. Head/Face: Normocephalic, atraumatic. Eyes: Extra-ocular motions intact. Periorbital areas with no swelling, redness, or edema. ENT: Mucous membranes moist. Cardiovascular: Regular rate and rhythm with a normal S1 and S2. Respiratory: Lungs have equal breath sounds bilaterally, clear to auscultation and percussion. No rales, rhonchi or wheezes noted. No increased work of breathing, no retractions or nasal flaring. Abdomen/GI: Soft, non-tender, no distension. Skin: Warm, dry with normal turgor. Normal color with no rashes, no lesions, and no evidence of cellulitis. MS/ Extremity: Pulses equal, no cyanosis. Neurovascular intact. Full, normal range of motion. Neuro: Awake and alert, GCS 15, oriented to person, place, time, and situation. Motor strength 5/5 in all extremities. Sensory grossly intact. Vital Signs: 04/07 21:19 BP 137 / 57; Pulse 98; Resp 17; Temp 97.6; Pulse Ox 98% ; Pain /; jj7 22:45 BP 138 / 125; Pulse 80; Resp 20; Pulse Ox 98% ; Pain /10; jj7 04/08 00:33 BP 151 / 66; Pulse 79; Resp 18 S; Pulse Ox 98% on R/A; ha1 04/07 21:19 Pain Scale: Adult jj7 22:45 Pain Scale: Adult jj7 MDM: 04/07 21:19 Patient medically screened. sb4 04/08 00:23 Differential diagnosis: bowel obstruction, gastritis, non-specific abd pain. Data sb4 reviewed: vital signs, nurses notes, EMS record, lab test result(s), radiologic studies, and as a result, I will discharge patient. Care significantly affected by the following chronic conditions: Hypertension. Counseling: I had a detailed discussion with the patient and/or guardian regarding the historical points, exam findings, and any diagnostic results supporting the discharge/admit diagnosis, the presence of at least one elevated blood pressure reading (>120/80) during this emergency department visit, lab results, radiology results, to return to the emergency department if symptoms worsen or persist or if there are any questions or concerns that arise at home. 04/07 21:38 Order name: CBC with Diff; Complete Time: 22:14 sb4 04/07 21:38 Order name: CMP; Complete Time: 22:38 sb4 04/07 21:38 Order name: Lipase; Complete Time: 22:38 sb4 04/07 21:38 Order name: UAM; Complete Time: 22:41 sb4 04/07 22:38 Order name: CT Abd/Pelvis - IV Contrast Only sb4 04/07 21:38 Order name: IV Saline Lock; Complete Time: 21:53 sb4 04/07 21:38 Order name: Labs collected and sent; Complete Time: 21:53 sb4 Administered Medications: 04/07 22:01 Drug: NS 0.9% IV 1000 ml IV at 1 bolus Per protocol; 1000 mL bolus Route: IV; Rate: 1 jj7 bolus; Site: left antecubital; 04/08 00:30 Follow up: Response: No adverse reaction; IV Status: Completed infusion; IV Intake: ha1 1000ml 04/07 23:08 Drug: Ketorolac IVP 15 mg IVP once Route: IVP; Site: left antecubital; jj7 04/08 00:00 Follow up: Response: No adverse reaction ha1 Disposition: 04:32 Co-signature as Attending Physician, Arthur Gomez MD I agree with the assessment sp4 and plan of care. I reviewed the patient's care provided by the Advanced Practice Provider and agree with the diagnosis and treatment plan. Disposition Summary: 04/08/23 00:23 Discharge Ordered Notes: Location: Home sb4 Problem: new sb4 Symptoms: have improved sb4 Condition: Stable sb4 Diagnosis - Lower abdominal pain, unspecified sb4 Followup: sb4 - With: Private Physician - When: As needed - Reason: Recheck today's complaints, Re-evaluation by your physician Discharge Instructions: - Discharge Summary Sheet sb4 - Abdominal Pain, Adult, [id number] sb4 Forms: - Medication Reconciliation Form sb4 - Thank You Letter sb4 - Antibiotic Education sb4 - Prescription Opioid Use sb4 - Patient Portal Instructions sb4 - Leadership Thank You Letter sb4 Signatures: Dispatcher [employer] Christofer Sykes RN RN jjChantale Bacon PA-C PAHarpal sb4 Arthur Gomez MD MD sp4 Monica Elliott RN ha1
[2023-04-08 00:44] VITALS: TEMP 97.6; O2SAT 98
[2023-04-08 01:00] VITALS: BP 151/66
--- NOTE | 2023-04-08 17:00 | RAD REPORT ---
EXAM DESCRIPTION: CT - Abdomen Pelvis W Contrast - 04/08/2023 6:01 am CLINICAL HISTORY: The patient is 38 years old and is Male; Abd pain;Flank pain TECHNIQUE: Axial computed tomography images of the abdomen and pelvis with intravenous contrast. S agittal and coronal reformatted images were created and reviewed. This CT exam was performed using one or more of the following dose reduction techniques: automated exposure control, adjustment of t he mA and/or kV according to patient size, and/or use of iterative reconstruction technique. COMPARISON: No relevant prior studies available. FINDINGS: Lung bases: Unremarkable. No mass. No consolidation. ABDOMEN: Liver: Unremarkable. No mass. Gallbladder and bile ducts: Gallbladder is contracted. No calcified stones. No ductal dilation. Pancreas: Unremarkable. No mass. No ductal dilation. Spleen: Unremarkable. No splenomegaly. Adrenals: Unremarkable. No mass. Kidneys and ureters: Unremarkable. No solid mass. No hydronephrosis. Stomach and bowel: Scattered colonic diverticula. No obstruction. No mucosal thickening. PELVIS: Appendix: No findings to suggest acute appendicitis. Bladder: Unremarkable. Reproductive: Unremarkable as visualized. ABDOMEN and PELVIS: Intraperitoneal space: Unremarkable. No free air. No significant fluid collection. Bones/joints: No acute fracture. No dislocation. Soft tissues: Unremarkable. Vasculature: Unremarkable. No abdominal aortic aneurysm. Lymph nodes: There are some some prominent inguinal lymph nodes bilaterally. IMPRESSION: No acute finding in the abdomen/pelvis. Electronically signed by: Jn Bentley MD 04/08/2023 12:01 AM CDT Due to temporary technical issues with the PACS/Fluency reporting system, reports are being signed by the in house radiologists without review as a courtesy to insure prompt reporting. The interpreting radiologist is fully responsible for the content of the report
== END 2023-04-08 00:35 | disposition home or self-care (01) ==
LOC: ER 21:15
DX: R10.30 Lower abdominal pain, unspecified (principal); I10 Essential (primary) hypertension; Z88.0 Allergy status to penicillin
CPT/HCPCS: 96361; 85025; 81001; 36415; 83690; 80053; 74177; 96374; 99285; Q9967; J7030

== ENCOUNTER 2023-04-18 09:55 | Emergency (ER) | payer OTHER ==
[2023-04-18 10:19] LABS: Absolute Lymphocytes (CBC) 3.1 K/uL (0.7-4.9); Hematocrit 39.9 % (39.6-49.0); Lymphocytes % 37.4 % (15.3-44.8); MCV 75.3 fL (80-100); MPV 7.2 fL (7.6-11.3); Platelets 291 thou/uL (152-406); RBC Red Blood Cell Count 5.31 M/uL (4.33-5.43)
[2023-04-18] MEDS ORDERED: ONDANSETRON 4 MG/2 ML VIAL ONE (10:29)
[2023-04-18] MEDS ORDERED: NA CHLORIDE 0.9% 1,000 ML ONE (10:29)
[2023-04-18] MEDS ORDERED: FAMOTIDINE 20 MG/2 ML VIAL IV ONE (10:29)
[2023-04-18 10:44] LABS: Albumin 3.6 g/dL (3.4-5.0); Bilirubin Total 0.5 mg/dL (0.2-1.0); Potassium 3.9 mEq/L (3.5-5.1); Troponin High Sensitivity 5.4 pg/mL (<58.9)
--- NOTE | 2023-04-18 11:07 | RAD REPORT ---
EXAM DESCRIPTION: RADChest Single View04/18/2023 10:39 am CLINICAL HISTORY: CHEST PAIN COMPARISON: Chest Single View dated 02/08/2023; Chest Single View dated 02/02/2023; Chest Single View da palmer 01/30/2023; Chest Single View dated 01/27/2023 TECHNIQUE: Portable AP view of the chest. FINDINGS: The lungs are clear. No pneumothorax or effusion. The cardiomediastinal contours are unre markable. IMPRESSION: No acute cardiopulmonary process.
--- NOTE | 2023-04-18 11:20 | ER ---
[facility]'s [facility] Name: Holden Morris Age: 38 yrs Sex: Male : 1985 Arrival Date: 04/18/2023 Time: 09:55 Bed 20 Private MD: Diagnosis: Chest pain, unspecified;Vomiting Presentation: 04/18 09:57 Chief complaint: Patient states: Chest pains and headaches since yesterday morning, nj1 vomited blood x3 this morning. 09:57 Coronavirus screen: Vaccine status: Patient reports receiving the 2nd dose of the covid nj1 vaccine. Ebola Screen: Patient denies travel to an Ebola-affected area in the 21 days before illness onset. Initial Sepsis Screen: Does the patient meet any 2 criteria?. Initial Sepsis Screen: Does the patient meet any 2 criteria? No. Patient's initial sepsis screen is negative. Does the patient have a suspected source of infection? No. Patient's initial sepsis screen is negative. Risk Assessment: Do you want to hurt yourself or someone else? Patient reports no desire to harm self or others. Onset of symptoms was April 17, 2023 at 06:00. 09:57 Method Of Arrival: Ambulatory [facility] 09:57 Acuity: STONE 3 nj1 Historical: - Allergies: 11:17 PENICILLINS; young; kc6 - PMHx: 10:07 SHAY; Anxiety; Asthma; autoimmune disease; GERD; Hypertension; Resolved; Migraines; nj1 - PSHx: 10:07 Cornea transplant L eye; nj1 - Immunization history:: Client reports receiving the 2nd dose of the Covid vaccine. - Social history:: Smoking status: Patient denies any tobacco usage or history of. Screenin:33 [facility] ED Fall Risk Assessment (Adult) History of falling in the last 3 months, ap3 including since admission No falls in past 3 months (0 pts). Abuse screen: Denies threats or abuse. Nutritional screening: No deficits noted. Tuberculosis screening: No symptoms or risk factors identified. Assessment: 10:32 General: Appears in no apparent distress. Behavior is calm, cooperative, appropriate ap3 for age. Pain: Complains of pain in chest Pain does not radiate. Pain began 1 day ago. Neuro: Level of Consciousness is awake, alert, obeys commands, Oriented to person, place, time, situation, Appropriate for age. Cardiovascular: Reports chest pain, Patient's skin is warm and dry. Respiratory: Airway is patent Respiratory effort is even, unlabored, Respiratory pattern is regular, symmetrical. GI: Reports nausea, vomiting. Vital Signs: 09:57 BP 140 / 92; Pulse 70; Resp 18; Temp 98.3(O); Pulse Ox 99% on R/A; Weight 106.59 kg; nj1 Height 5 ft. 9 in. ; Pain 9/10; 11:12 BP 149 / 96; Pulse 69; Pulse Ox 98% on R/A; ap3 09:57 Body Mass Index 34.70 (106.59 kg, 175.26 cm) nj1 09:57 Pain Scale: Adult mn1 ED Course: 09:57 Patient arrived in ED. rg4 09:59 [facility]. kb 09:59 Kailash Longo MD is Attending Physician. kb 10:03 Mia Armendariz, NICOL is Primary Nurse. ap3 10:07 Triage completed. nj1 10:07 Arm band placed on. nj1 10:14 Initial lab(s) drawn, by ak, sent to lab. Inserted saline lock: 22 gauge in left ap3 antecubital area, using aseptic technique. Blood collected. 10:32 EKG done, by ED staff, reviewed by Eve BAY. ap3 10:33 lunchroom monitor on. Pulse ox on. NIBP on. ap3 10:33 Patient has correct armband on for positive identification. Bed in low position. Call ap3 light in reach. Side rails up X 1. 10:33 No provider procedures requiring assistance completed. Patient maintains SpO2 ap3 saturation greater than 95% on room air. 10:41 XRAY Chest (1 view) In Process Unspecified. EDMS 11:27 Provided Education on: discharge instructions. ap3 11:27 IV discontinued, intact, bleeding controlled, No redness/swelling at site. Pressure ap3 dressing applied. Administered Medications: 10:22 Drug: NS 0.9% IV 1000 ml IV at 1 bolus Per protocol; 1000 mL bolus Route: IV; Rate: 1 ap3 bolus; Site: left antecubital; 11:20 Follow up: Response: No adverse reaction; IV Status: Completed infusion; IV Intake: kc6 1000ml 11:27 Follow up: IV Status: Completed infusion ap3 10:22 Drug: Famotidine IVP 20 mg IVP once; dilute with 10 mL 0.9% NaCl; give over 2 minutes ap3 Route: IVP; Site: left antecubital; 11:20 Follow up: Response: No adverse reaction kc6 11:28 Follow up: Response: No adverse reaction ap3 10:23 Drug: Ondansetron IVP 4 mg IVP once; over 2 minutes Route: IVP; Site: left antecubital; ap3 11:20 Follow up: Response: No adverse reaction kc6 11:27 Follow up: Response: No adverse reaction ap3 11:17 Drug: Ketorolac IVP 15 mg IVP once Route: IVP; Site: right antecubital; kc6 11:28 Follow up: Response: No adverse reaction ap3 Medication: 10:33 VIS not applicable for this client. ap3 Intake: 11:20 IV: 1000ml; Total: 1000ml. kc6 Outcome: 11:19 Discharge ordered by . kb 11:27 Discharged to home ambulatory, ap3 11:27 Condition: good 11:27 Discharge instructions given to patient, Instructed on discharge instructions, follow up and referral plans. medication usage, Demonstrated understanding of instructions, follow-up care, medications, Prescriptions given X 1, 11:27 Patient left the ED. ap3 Signatures: Dispatcher [employer] EDEve Alfonso, PHU YEAGER-Desire Hawkins rg4 Mia Armendariz RN RN ap3 Nikki Nunez RN RN kc6 Janet Thomson RN RN nj1
--- NOTE | 2023-04-18 11:20 | EDPHYS ---
Physician Documentation [facility] Name: Holden Morris Age: 38 yrs Sex: Male : 1985 Arrival Date: 04/18/2023 Time: 09:55 Bed 20 Private MD: ED Physician Kailash Longo HPI: 04/18 11:18 This 38 yrs old Black Male presents to ER via Ambulatory with complaints of Chest Pain, kb Vomiting. 11:18 The patient or guardian reports chest pain that is located primarily in the chest kb diffusely. The pain does not radiate. Associated signs and symptoms: Pertinent positives: headache, vomiting. The chest pain is described as aching. Duration: The patient or guardian reports a single episode, that is still ongoing. Modifying factors: The symptoms are alleviated by nothing. the symptoms are aggravated by nothing. Severity of pain: At its worst the pain was mild in the emergency department the pain is unchanged. The patient has not experienced similar symptoms in the past. The patient has not recently seen a physician. Pt reports diffuse chest pain and headache since yesterday, vomiting x3 this morning. Historical: - Allergies: 11:17 PENICILLINS; young; kc6 - PMHx: 10:07 SHAY; Anxiety; Asthma; autoimmune disease; GERD; Hypertension; Resolved; Migraines; nj1 - PSHx: 10:07 Cornea transplant L eye; nj1 - Immunization history:: Client reports receiving the 2nd dose of the Covid vaccine. - Social history:: Smoking status: Patient denies any tobacco usage or history of. ROS: 11:17 Constitutional: Negative for fever, chills, and weight loss, kb 11:17 Cardiovascular: Positive for chest pain, 11:17 Abdomen/GI: Positive for nausea and vomiting, Negative for abdominal pain, 11:17 Neuro: Positive for headache, 11:17 All other systems are negative, Exam: 11:17 Constitutional: This is a well developed, well nourished patient who is awake, alert, kb and in no acute distress. Head/Face: Normocephalic, atraumatic. ENT: Moist Mucous membranes Cardiovascular: Regular rate Respiratory: Respirations even and unlabored. No increased work of breathing. Talking in full sentences Abdomen/GI: Soft, non-tender. No distention Skin: Warm, dry with normal turgor. Normal color. MS/ Extremity: Pulses equal, no cyanosis. Neurovascular intact. Full, normal range of motion. Neuro: Awake and alert, GCS 15, oriented to person, place, time, and situation. Moves all extremities. Normal gait. 11:35 ECG was reviewed by the Attending Physician. kb Vital Signs: 09:57 BP 140 / 92; Pulse 70; Resp 18; Temp 98.3(O); Pulse Ox 99% on R/A; Weight 106.59 kg; nj1 Height 5 ft. 9 in. ; Pain 9/10; 11:12 BP 149 / 96; Pulse 69; Pulse Ox 98% on R/A; ap3 09:57 Body Mass Index 34.70 (106.59 kg, 175.26 cm) nj1 09:57 Pain Scale: Adult nj1 MDM: 09:59 Patient medically screened. kb 11:17 Data reviewed: vital signs, nurses notes. kb 11:19 Differential diagnosis: abnormal EKG, acute myocardial infarction, anxiety, coronary kb artery disease gastritis, gastroesophageal reflux disease (GERD). Counseling: I had a detailed discussion with the patient and/or guardian regarding the historical points, exam findings, and any diagnostic results supporting the discharge/admit diagnosis, lab results, radiology results, the need for outpatient follow up, a family practitioner, a academic interventionist, to return to the emergency department if symptoms worsen or persist or if there are any questions or concerns that arise at home. 04/18 10:04 Order name: CBC with Diff; Complete Time: 10:21 kb 04/18 10:04 Order name: CMP; Complete Time: 10:45 kb 04/18 10:04 Order name: Lipase; Complete Time: 10:45 kb 04/18 10:04 Order name: Troponin HS; Complete Time: 10:45 kb 04/18 10:04 Order name: XRAY Chest (1 view); Complete Time: 11:07 kb 04/18 10:04 Order name: EKG; Complete Time: 10:05 kb 04/18 10:04 Order name: IV Saline Lock; Complete Time: 10:15 kb 04/18 10:04 Order name: Labs collected and sent; Complete Time: 10:15 kb 04/18 10:04 Order name: EKG - Nurse/Tech; Complete Time: 10:32 kb EC:35 Rate is 63 beats/min. Rhythm is regular. QRS [place] is Normal. CO interval is normal at kb 136 msec. QRS interval is normal at 82 msec. QT interval is normal at 386 msec. Administered Medications: 10:22 Drug: NS 0.9% IV 1000 ml IV at 1 bolus Per protocol; 1000 mL bolus Route: IV; Rate: 1 ap3 bolus; Site: left antecubital; 11:20 Follow up: Response: No adverse reaction; IV Status: Completed infusion; IV Intake: kc6 1000ml 11:27 Follow up: IV Status: Completed infusion ap3 10:22 Drug: Famotidine IVP 20 mg IVP once; dilute with 10 mL 0.9% NaCl; give over 2 minutes ap3 Route: IVP; Site: left antecubital; 11:20 Follow up: Response: No adverse reaction kc6 11:28 Follow up: Response: No adverse reaction ap3 10:23 Drug: Ondansetron IVP 4 mg IVP once; over 2 minutes Route: IVP; Site: left antecubital; ap3 11:20 Follow up: Response: No adverse reaction kc6 11:27 Follow up: Response: No adverse reaction ap3 11:17 Drug: Ketorolac IVP 15 mg IVP once Route: IVP; Site: right antecubital; kc6 11:28 Follow up: Response: No adverse reaction ap3 Disposition Summary: 04/18/23 11:19 Discharge Ordered Notes: Location: Home kb Condition: Stable kb Diagnosis - Chest pain, unspecified kb - Vomiting kb Followup: kb - With: Emergency Department - When: As needed - Reason: Worsening of condition Followup: kb - With: Private Physician - When: 2 - 3 days - Reason: Recheck today's complaints, Continuance of care, Re-evaluation by your physician Discharge Instructions: - Discharge Summary Sheet kb - Nonspecific Chest Pain, Adult, [id number] kb Forms: - Medication Reconciliation Form kb - Thank You Letter kb - Antibiotic Education kb - Prescription Opioid Use kb - Patient Portal Instructions kb - Leadership Thank You Letter kb - Work release form eb Prescriptions: - Zofran 4 mg Oral tablet - take 1 tablet ORAL route every 6 hours As needed; 12 tablet; Refills: 0, kb Product Selection Permitted Signatures: Dispatcher [employer] Eve Crenshaw, TOY-C TOY-Mia Barros RN RN ap3 Nikki Nunez, RN RN kc6 Janet Thomson, RN RN nj1
[2023-04-18] MEDS ORDERED: KETOROLAC 30 MG/ML INJ ONE (11:22)
[2023-04-18 11:48] VITALS: TEMP 98.3
[2023-04-18 12:15] VITALS: BP 149/96; O2SAT 98
--- NOTE | 2023-04-18 17:01 | EKG ---
Test Date: 2023-04-18 Test Time: 10:27:19 [employer] Ebs Architect: ALP MEASUREMENT RESULTS: Intervals: Rate: 63 CT: 136 QRSD: 82 QT: 378 QTc: 386 [place]: P: 57 CT: 136 QRS: 40 T: 11 INTERPRETIVE STATEMENTS: Normal sinus rhythm Normal ECG Compared to ECG 02/02/2023 21:56:35 No significant changes Electronically Signed On 04-18-23 17:01:03 CDT by Silvano Victoria
== END 2023-04-18 11:27 | disposition home or self-care (01) ==
LOC: ER 09:55
DX: R07.9 Chest pain, unspecified (principal); R11.10 Vomiting, unspecified; R51.9 Headache, unspecified; Z88.0 Allergy status to penicillin
CPT/HCPCS: 93005; 85025; 36415; 84484; 83690; 80053; 71045; 99285; J2405; J7030

== ENCOUNTER 2023-05-03 18:15 | Emergency (ER) | payer OTHER, SELFPAY ==
--- NOTE | 2023-05-03 19:55 | EDPHYS ---
Physician Documentation [facility] Name: Holden Morris Age: 38 yrs Sex: Male : 1985 Arrival Date: 05/03/2023 Time: 18:15 Bed 12 Private MD: ED Physician Aidan Carranza HPI: 05/03 19:48 This 38 yrs old Black Male presents to ER via EMS with complaints of Fall Injury. lorna 19:48 Details of fall: The patient fell from a height, down approximately 6 stairs. Onset: [facility] The symptoms/episode began/occurred just prior to arrival. Associated injuries: The patient sustained upper back injury. Severity of symptoms: At their worst the symptoms were mild, moderate, in the emergency department the symptoms have improved, mildly. The patient has not experienced similar symptoms in the past. Historical: - Allergies: 18:23 PENICILLINS; young; hb - PMHx: 18:23 Anxiety; Asthma; autoimmune disease; GERD; Hypertension; Resolved; Migraines; SHAY; hb - PSHx: 18:23 Cornea transplant L eye; hb - Immunization history:: Adult Immunizations up to date. - Social history:: Smoking status: Patient denies any tobacco usage or history of. - Immunization history: Last tetanus immunization: - up to date. ROS: 19:51 Constitutional: Negative for fever, chills, and weight loss, Eyes: Negative for injury, lorna pain, redness, and discharge, ENT: Negative for injury, pain, and discharge, Neck: Negative for injury, pain, and swelling, Cardiovascular: Negative for chest pain, palpitations, and edema, Respiratory: Negative for shortness of breath, cough, wheezing, and pleuritic chest pain, Abdomen/GI: Negative for abdominal pain, nausea, vomiting, diarrhea, and constipation, : Negative for injury, bleeding, discharge, and swelling, MS/Extremity: Negative for injury and deformity, Skin: Negative for injury, rash, and discoloration, Neuro: Negative for headache, weakness, numbness, tingling, and seizure, Psych: Negative for depression, anxiety, suicide ideation, homicidal ideation, and hallucinations, Allergy/Immunology: Negative for hives, rash, and allergies, Endocrine: Negative for neck swelling, polydipsia, polyuria, polyphagia, and marked weight changes, Hematologic/Lymphatic: Negative for swollen nodes, abnormal bleeding, and unusual bruising, 19:51 Back: Positive for injury or acute deformity, decreased range of motion, pain at rest, pain with movement, Negative for radiated pain, Exam: 19:51 Constitutional: This is a well developed, well nourished patient who is awake, alert, lorna and in no acute distress. Head/Face: Normocephalic, atraumatic. Eyes: Pupils equal round and reactive to light, extra-ocular motions intact. Lids and lashes normal. Conjunctiva and sclera are non-icteric and not injected. Cornea within normal limits. Periorbital areas with no swelling, redness, or edema. ENT: Nares patent. No nasal discharge, no septal abnormalities noted. Tympanic membranes are normal and external auditory canals are clear. Oropharynx with no redness, swelling, or masses, exudates, or evidence of obstruction, uvula midline. Mucous membranes moist. Neck: Trachea midline, no thyromegaly or masses palpated, and no cervical lymphadenopathy. Supple, full range of motion without nuchal rigidity, or vertebral point tenderness. No Meningismus. Chest/axilla: Normal chest wall appearance and motion. Nontender with no deformity. No lesions are appreciated. Cardiovascular: Regular rate and rhythm with a normal S1 and S2. No gallops, murmurs, or rubs. Normal PMI, no JVD. No pulse deficits. Respiratory: Lungs have equal breath sounds bilaterally, clear to auscultation and percussion. No rales, rhonchi or wheezes noted. No increased work of breathing, no retractions or nasal flaring. Abdomen/GI: Soft, non-tender, with normal bowel sounds. No distension or tympany. No guarding or rebound. No evidence of tenderness throughout. Male : Normal genitalia with no discharge or lesions. Skin: Warm, dry with normal turgor. Normal color with no rashes, no lesions, and no evidence of cellulitis. MS/ Extremity: Pulses equal, no cyanosis. Neurovascular intact. Full, normal range of motion. Neuro: Awake and alert, GCS 15, oriented to person, place, time, and situation. Cranial nerves II-XII grossly intact. Motor strength 5/5 in all extremities. Sensory grossly intact. Cerebellar exam normal. Normal gait. Psych: Awake, alert, with orientation to person, place and time. Behavior, mood, and affect are within normal limits. 19:51 Back: pain, that is mild, that is moderate, of the lumbar area, ROM is painful, with flexion, with extension, normal spinal alignment noted, CVA tenderness, is absent, muscle spasm, is appreciated in the left low back, left mid back, right mid back and right low back, Vital Signs: 18:32 BP 144 / 91; Pulse 92; Resp 18; Temp 97.6; Pulse Ox 97% on R/A; Weight 97.52 kg; Height hb 5 ft. 10 in. ; Pain 10/10; 20:44 BP 139 / 90; Pulse 90; Resp 18; Pulse Ox 98% ; cp4 18:32 Body Mass Index 30.85 (97.52 kg, 177.8 cm) hb 18:32 Pain Scale: Adult hb [place] Coma Score: 20:40 Eye Response: spontaneous(4). Motor Response: obeys commands(6). Verbal Response: cp4 oriented(5). Total: 15. Trauma Score (Adult): 20:40 Eye Response: spontaneous(1); Verbal Response: oriented(1); Motor Response: obeys cp4 commands(2); Systolic BP: > 89 mm Hg(4); Respiratory Rate: 10 to 29 per min(4); [place] Score: 15; Trauma Score: 12 MDM: 18:57 Patient medically screened. [facility] 19:52 Differential diagnosis: Fatigue Fracture Ligament Injury Obesity ruptured disc, spinal lorna injury, sprain, Ureterolithiasis. Differential diagnosis: abrasion, closed head injury, contusion, fracture, laceration, multiple trauma, sprain, strain. Data reviewed: vital signs, nurses notes, lab test result(s), radiologic studies, CT scan. Consideration of Admission/Observation Escalation of care including admission/observation considered. I considered the following discharge prescriptions or medication management in the emergency department Medications were administered in the Emergency Department. See MAR. Independent interpretation of the following test(s) in the Emergency Department CT Scan: My interpretation is CT TRAUMA. Test considered but Not performed: Labs: NO LABS. Care significantly affected by the following chronic conditions: Hypertension, Obesity, ANXIETY, ASTHMA, GERD, SHAY, MIGRAINES. 05/03 18:58 Order name: Urinalysis w/ reflexes [facility] 05/03 18:57 Order name: CT Traumagram (Head C Spine CAP wo con) lorna Administered Medications: 20:00 Drug: Ketorolac IM 60 mg IM once Route: IM; Site: right deltoid; cp4 20:29 Follow up: Response: No adverse reaction cp4 20:00 Drug: [place] PO 10 mg-325 mg 1 tabs PO once Route: PO; cp4 20:29 Follow up: Response: No adverse reaction cp4 Disposition Summary: 05/03/23 19:55 Discharge Ordered Notes: Location: Home [facility] Problem: new lorna Symptoms: have improved lorna Condition: Stable lorna Diagnosis - Fall (on) (from) other stairs and steps lorna - Low back pain lorna Followup: lorna - With: Private Physician - When: 2 - 3 days - Reason: Recheck today's complaints, Continuance of care, Re-evaluation by your physician Discharge Instructions: - Discharge Summary Sheet lorna - Acute Back Pain, Adult lorna - Musculoskeletal Pain [facility] Forms: - Medication Reconciliation Form [facility] - Thank You Letter lorna - Antibiotic Education lorna - Prescription Opioid Use lorna - Patient Portal Instructions lorna - Leadership Thank You Letter lorna - Work release form cp4 Prescriptions: - acetaminophen-codeine 300-30 mg Oral tablet - take 2 tablet ORAL route every 6 hours as needed for pain; 20 tablet; Refills: lorna 0, Product Selection Permitted - Cyclobenzaprine 5 mg Oral Tablet - take 1 tablet ORAL route 3 times per day As needed; 15 tablet; Refills: 0, lorna Product Selection Permitted Signatures: Dispatcher [employer] EDMS Aidan Carranza MD MD cha Baxter, Heather, RN RN Rola Ferreira cp4 Corrections: (The following items were deleted from the chart) 19:14 18:34 Spine Lumbar Wo Con+CT.RAD.BRZ ordered. EDMS EDMS
--- NOTE | 2023-05-03 19:55 | ER ---
Nurse's Notes [facility] Name: Holden Morris Age: 38 yrs Sex: Male : 1985 Arrival Date: 05/03/2023 Time: 18:15 Bed 12 Private MD: Diagnosis: Fall (on) (from) other stairs and steps;Low back pain Presentation: 05/03 18:21 Coronavirus screen: At this time, the client does not indicate any symptoms associated hb with coronavirus-19. Ebola Screen: No symptoms or risks identified at this time. Initial Sepsis Screen: Does the patient meet any 2 criteria? No. Patient's initial sepsis screen is negative. Does the patient have a suspected source of infection? No. Patient's initial sepsis screen is negative. Risk Assessment: Do you want to hurt yourself or someone else? Patient reports no desire to harm self or others. Onset of symptoms was May 03, 2023. 18:21 Acuity: STONE 4 hb 18:21 Method Of Arrival: EMS: [facility] hb 18:23 Chief complaint: EMS states: Fell down 5 stairs, was ambulatory on scene, now c/o low hb back pain. negative LOC. 20:40 Care prior to arrival: None. Mechanism of Injury: Fall from standing position. Trauma cp4 event details: Injury occurred in the [facility]. Trauma Activation: Not Applicable Physician: ED Physician; Name: ; Notified At: ; Arrived At: Physician: General Surgeon; Name: ; Notified At: ; Arrived At: Physician: Radiology; Name: ; Notified At: ; Arrived At: Physician: Respiratory; Name: ; Notified At: ; Arrived At: Physician: Lab; Name: ; Notified At: ; Arrived At: Historical: - Allergies: 18:23 PENICILLINS; young; hb - PMHx: 18:23 Anxiety; Asthma; autoimmune disease; GERD; Hypertension; Resolved; Migraines; SHAY; hb - PSHx: 18:23 Cornea transplant L eye; hb - Immunization history:: Adult Immunizations up to date. - Social history:: Smoking status: Patient denies any tobacco usage or history of. - Immunization history: Last tetanus immunization: - up to date. Screenin:21 [facility] ED Fall Risk Assessment (Adult) History of falling in the last 3 months, cp4 including since admission Yes- single mechanical fall (1 pt) Confusion or Disorientation No (0 pts) Intoxicated or Sedated No (0 pts) Impaired Gait No (0 pts) Mobility Assist Device Used No (0 pt) Altered Elimination No (0 pt) Score/Fall Risk Level 0 - 2 = Low Risk. Abuse screen: Denies threats or abuse. Nutritional screening: No deficits noted. Tuberculosis screening: No symptoms or risk factors identified. Primary Survey: 20:40 NO uncontrolled hemorrhage observed. A: The client is awake and alert. The airway is cp4 patent. The client is alert. Airway: patent, No supplemental oxygen in use on arrival. Oral cavity: clear, Trachea midline. Breathing/Chest: Spontaneous respiratory effort, equal unlabored respirations, breath sounds clear bilaterally, regular pattern, symmetrical chest rise and fall. Circulation: No external hemorrhage present. Regular and strong central pulse, skin warm/dry/normal color. Disability Pupils are equal, round, reactive to light and accommodation. Client is alert. Exposure/Environment: A warming method has been applied: A warm blanket has been provided to the patient. Reassessment Alertness and Airway: Awake and alert. The airway is patent. Airway Patent Oxygen Non-rebreather Oral cavity Clear Trachea Midline Breathing: Spontaneous respiratory effort, equal unlabored respirations, breath sounds clear bilaterally, regular pattern with symmetrical chest rise and fall. Circulation: No external hemorrhage noted. Regular and strong central pulse, skin warm/dry/normal color. Disability: Pupils Pupils are equal, round, reactive to light and accomodation. Alert. Assessment: 20:21 Pain: Complains of pain in headache. cp4 20:40 General: Appears in no apparent distress. Behavior is calm, cooperative, appropriate cp4 for age. Vital Signs: 18:32 BP 144 / 91; Pulse 92; Resp 18; Temp 97.6; Pulse Ox 97% on R/A; Weight 97.52 kg; Height hb 5 ft. 10 in. ; Pain 10/10; 20:44 BP 139 / 90; Pulse 90; Resp 18; Pulse Ox 98% ; cp4 18:32 Body Mass Index 30.85 (97.52 kg, 177.8 cm) hb 18:32 Pain Scale: Adult hb [place] Coma Score: 20:40 Eye Response: spontaneous(4). Motor Response: obeys commands(6). Verbal Response: cp4 oriented(5). Total: 15. Trauma Score (Adult): 20:40 Eye Response: spontaneous(1); Verbal Response: oriented(1); Motor Response: obeys cp4 commands(2); Systolic BP: > 89 mm Hg(4); Respiratory Rate: 10 to 29 per min(4); [place] Score: 15; Trauma Score: 12 ED Course: 18:19 Patient arrived in ED. kj1 18:23 Triage completed. hb 18:32 Arm band placed on. hb 18:57 Aidan Carranza MD is Attending Physician. lorna 19:17 CT Traumagram (Head C Spine CAP wo con) In Process Unspecified. EDMS 19:51 Rola Andrews is Primary Nurse. cp4 20:21 Bed in low position. Call light in reach. Side rails up X 1. Provided Education on: cp4 falls. 20:21 Patient did not have IV access during this emergency room visit. cp4 20:40 Patient maintains SpO2 saturation greater than 95% on room air. cp4 20:42 No provider procedures requiring assistance completed. cp4 20:43 Thermoregulation: warm blanket given to patient. cp4 Administered Medications: 20:00 Drug: Ketorolac IM 60 mg IM once Route: IM; Site: right deltoid; cp4 20:29 Follow up: Response: No adverse reaction cp4 20:00 Drug: [place] PO 10 mg-325 mg 1 tabs PO once Route: PO; cp4 20:29 Follow up: Response: No adverse reaction cp4 Medication: 20:21 VIS not applicable for this client. cp4 Intake: 20:40 PO: 0ml; Total: 0ml. cp4 Output: 20:40 Urine: 0ml; Total: 0ml. cp4 Outcome: 19:55 Discharge ordered by . lorna 20:40 Discharged to home ambulatory, cp4 20:40 Condition: stable 20:40 Patient's length of stay was not longer than 2 hours. 20:43 Discharge instructions given to patient, Instructed on discharge instructions, follow cp4 up and referral plans. medication usage, Demonstrated understanding of instructions, follow-up care, medications, Prescriptions given X 2, 20:44 Patient left the ED. cp4 Signatures: Dispatcher [employer] EDAK Aidan Carranza MD MD cha Baxter, Heather, RN RN Dora Carolina kj1 Rola Andrews cp4 Corrections: (The following items were deleted from the chart) 18: 18:21 Chief complaint: Fell down 5 stairs, was ambulatory on scene, now c/o low back hb pain. negative LOC. hb : 18:21 Method Of Arrival: Ambulatory hb hb 18:33 18:32 Pulse 92bpm; Resp 18bpm; Pulse Ox 97% RA; Temp 97.6F; 97.52 kg; Height 5 ft. 10 hb in.; BMI: 30.8; Pain 04/12, Adult; hb
[2023-05-03] MEDS ORDERED: HYDROCODONE/APAP 10/325 TAB ONE (20:07)
[2023-05-03] MEDS ORDERED: KETOROLAC 30 MG/ML INJ ONE (20:08)
--- NOTE | 2023-05-03 20:16 | RAD REPORT ---
EXAM DESCRIPTION: CT - Head C Spine Cap Wo Con - 05/03/2023 7:15 pm CLINICAL HISTORY: TRAUMA COMPARISON: Head C Spine Cap Wo Con dated 05/08/2022 TECHNIQUE: Head and cervical spine CT images were obtained without IV contrast. Chest, abdomen, and pelvis CT images were obtained following intravenous administration of 90 mL Isovue-300. Multiplanar reformats were generated and reviewed. All CT scans are performed using dose optimization technique as appropriate and may include automated exposure control or mA/KV adjustment according to patient size. FINDINGS: CT HEAD: No intracranial hemorrhage, mass effect, or edema. No evidence of acute territorial infarct. No midli ne shift or abnormal fluid collection. The ventricles are normal in caliber and configuration for age . Basal cisterns are patent. Mastoid aircells and paranasal sinuses are clear. No acute skull fractur e. CT CERVICAL SPINE: No acute cervical spine fracture or subluxation. Straightening of normal cervical lordosis which may be positional or secondary to muscle spasm. Vertebral body heights are well maintained. Facet joints are normal in alignment. No hyperattenuating canal hematoma. Prevertebral and paraspinous soft tissue s are unremarkable. Suspected 1 cm left thyroid lobe hypoattenuating nodule. Beam hardening artifact limits evaluation. CT CHEST: No pneumothorax, pulmonary contusion or pleural fluid collection. No mediastinal hematoma and the aor ta and pulmonary arteries are unremarkable. No chest will mass or abnormal axillary finding. No displ aced rib fracture or other significant bony finding. CT ABDOMEN/ PELVIS: No evidence of traumatic injury to solid abdominal viscera. Gallbladder and biliary tree are unremark able. No bowel injury or significant finding. No free air, free fluid or abnormal fat stranding. No u rinary bladder abnormality. No significant bony finding. IMPRESSION: No acute traumatic findings. Straightening of the normal cervical lordosis which may be positional or secondary to muscle spasm. Incidentally noted small left thyroid nodule, probably stable.
[2023-05-03 20:27] LABS: Specific Gravity 1.022 (1.005-1.030); Urine Bilirubin NEGATIVE (Negative); Urine Blood Negative (Negative); Urine Clarity Clear (Clear); Urine Color Light-Yellow (Yellow); Urine Glucose NEGATIVE (Negative); Urine Protein NEGATIVE (Negative); Urine Urobilinogen Normal (Normal)
[2023-05-03 21:25] VITALS: TEMP 97.6
[2023-05-03 21:27] VITALS: BP 139/90; O2SAT 98
== END 2023-05-03 20:44 | disposition home or self-care (01) ==
LOC: ER 18:15
DX: M54.50 Low back pain, unspecified (principal); W10.8XXA Fall (on) (from) other stairs and steps, initial encounter
CPT/HCPCS: 70450; 71250; 72125; 81003; 96372; 99285

== ENCOUNTER 2023-05-15 14:59 | Emergency (ER) | payer SELFPAY ==
[2023-05-15] MEDS ORDERED: ACETAMINOPHEN 500 MG TAB ONE (15:50)
[2023-05-15 15:53] LABS: SARS-CoV-2 Antigen Rapid Res Negative (Negative)
--- NOTE | 2023-05-15 16:33 | RAD REPORT ---
EXAM DESCRIPTION: Sania Alvarez (2 Views)05/15/2023 4:19 pm CLINICAL HISTORY: Chest pain COMPARISON: April 2023 FINDINGS: The lungs appear clear of acute infiltrate. The heart is normal size IMPRESSION: No acute abnormalities displayed
--- NOTE | 2023-05-15 16:40 | ER ---
Nurse's Notes [facility] Name: Holden Morris Age: 38 yrs Sex: Male : 1985 Arrival Date: 05/15/2023 Time: 14:59 Bed 20 Private MD: Diagnosis: Acute bronchitis, unspecified Presentation: 05/15 15:09 Chief complaint:. Coronavirus screen: Client denies travel out of the [place] in the last ss 14 days. Ebola Screen: Patient denies exposure to infectious person. Patient denies travel to an Ebola-affected area in the 21 days before illness onset. Note Attempting to triage patient. Pt is on phone with [employer] trying to get phone unlocked that he purchased yesterday. 15:09 Method Of Arrival: Ambulatory ss 15:09 Initial Sepsis Screen: Does the patient meet any 2 criteria? No. Patient's initial ss sepsis screen is negative. Does the patient have a suspected source of infection? No. Patient's initial sepsis screen is negative. Risk Assessment: Do you want to hurt yourself or someone else? Patient reports no desire to harm self or others. Onset of symptoms was May 15, 2023. 15:09 Acuity: STONE 4 ll1 15:11 Chief complaint: Patient states: Chest pain and SALINAS that started today. PT states, "it's ss chest pain like I'm getting sick.". Triage Assessment: 15:13 General: Appears in no apparent distress. comfortable, Behavior is calm, cooperative. ss Pain: Pain currently is 10 out of 10 on a pain scale. Neuro: Level of Consciousness is awake, alert, obeys commands. 16:52 Respiratory: Reports shortness of breath cough that is Onset: The symptoms/episode tm6 began/occurred today, the patient has mild shortness of breath. Historical: - Allergies: 15:11 PENICILLINS; young; ss - PMHx: 15:11 SHAY; Anxiety; Asthma; autoimmune disease; GERD; Hypertension; Resolved; Migraines; ss - PSHx: 15:11 Cornea transplant L eye; ss - Immunization history:: Adult Immunizations up to date. - Social history:: Smoking status: Patient denies any tobacco usage or history of. Screenin:40 [facility] ED Fall Risk Assessment (Adult) History of falling in the last 3 months, tm6 including since admission No falls in past 3 months (0 pts). Abuse screen: Denies threats or abuse. Denies injuries from another. Nutritional screening: No deficits noted. Tuberculosis screening: No symptoms or risk factors identified. Assessment: 15:40 General: Appears in no apparent distress. Behavior is calm, cooperative, appropriate tm6 for age. Pain:. Neuro: Level of Consciousness is awake, alert, Oriented to person, place, time, situation. Cardiovascular: Capillary refill < 3 seconds Patient's skin is warm and dry. Respiratory: Airway is patent Respiratory effort is even, unlabored, Breath sounds are diminished. GI: Abdomen is round non-distended. : No signs and/or symptoms were reported regarding the genitourinary system. EENT: No signs and/or symptoms were reported regarding the EENT system. Derm: No signs and/or symptoms reported regarding the dermatologic system. Musculoskeletal: No signs and/or symptoms reported regarding the musculoskeletal system. 15:45 Cardiovascular: Rhythm is sinus rhythm. tm6 16:29 Reassessment: Patient appears in no apparent distress at this time. Patient and/or tm6 family updated on plan of care and expected duration. Pain level reassessed. Patient is alert, oriented x 3, equal unlabored respirations, skin warm/dry/pink. Vital Signs: 15:09 BP 158 / 94; Pulse 82; Resp 16; Temp 97.9; Pulse Ox 99% on R/A; Weight 102.06 kg; ss Height 5 ft. 9 in. ; Pain 10/10; 15:39 BP 144 / 90; Pulse 70; Resp 17; Temp 97.9(TE); Pulse Ox 96% on R/A; tm6 16:23 BP 124 / 74; Pulse 82; Pulse Ox 96% on R/A; tm6 15:09 Body Mass Index 33.23 (102.06 kg, 175.26 cm) ss 15:09 Pain Scale: Adult ss ED Course: 15:01 Patient arrived in ED. im 15:01 Chantale Chen PA-C is PHCP. sb4 15:01 Orlando Cantu MD is Attending Physician. sb4 15:09 Arm band placed on right wrist. ss 15:11 Triage completed. ss 15:19 Sameera Mc, NICOL is Primary Nurse. tm6 15:38 Strep Sent. tm6 15:38 Flu Sent. tm6 15:38 SARS RAPID Sent. tm6 15:40 Patient has correct armband on for positive identification. Placed in gown. Bed in low tm6 position. Call light in reach. Side rails up X2. Provided Education on: need for cardiac monitoring. Client placed on continuous cardiac and pulse oximetry monitoring. NIBP monitoring applied. media monitor on. Door closed. Noise minimized. Lights dimmed. Warm blanket given. 15:40 No provider procedures requiring assistance completed. tm6 16:20 Chest Pa And Lat (2 Views) XRAY In Process Unspecified. EDMS 16:52 Patient did not have IV access during this emergency room visit. tm6 Administered Medications: 15:38 Drug: Acetaminophen PO 1000 mg PO once Route: PO; tm6 Medication: 15:40 VIS not applicable for this client. tm6 Outcome: 16:40 Discharge ordered by MD. sb4 16:51 Discharged to home ambulatory, tm6 16:51 Condition: stable 16:51 Discharge instructions given to patient, Instructed on discharge instructions, medication usage, Demonstrated understanding of instructions, medications, Prescriptions given X 1, 16:52 Patient left the ED. tm6 Signatures: Dispatcher [employer] EDTN Janie Patterson RN RN ss Mamta Graham RN RN ll1 Chantale Chen PA-C PAAdinaC Joann Shen Tawney, RN RN tm6 Corrections: (The following items were deleted from the chart) 15:13 15:09 Acuity: STONE 4 ss ss 15:25 15:09 Acuity: STONE 3 ss ll1
--- NOTE | 2023-05-15 16:40 | EDPHYS ---
Physician Documentation [facility] Name: Holden Morris Age: 38 yrs Sex: Male : 1985 Arrival Date: 05/15/2023 Time: 14:59 Bed 20 Private MD: ED Physician Orlando Cantu HPI: 05/15 15:51 This 38 yrs old Black Male presents to ER via Ambulatory with complaints of Flu sb4 Symptoms. 15:54 patient states he woke up this morning with a headache and later started experiencing sb4 discomfort in his chest, like he's developing a cold. he does endorse some sick contacts. denies any fevers. reports diarrhea, nausea, shortness of breath, sore throat. took zofran this morning. Historical: - Allergies: 15:11 PENICILLINS; young; ss - PMHx: 15:11 SHAY; Anxiety; Asthma; autoimmune disease; GERD; Hypertension; Resolved; Migraines; ss - PSHx: 15:11 Cornea transplant L eye; ss - Immunization history:: Adult Immunizations up to date. - Social history:: Smoking status: Patient denies any tobacco usage or history of. ROS: 15:54 Constitutional: Negative for fever, chills, and weight loss, sb4 15:54 ENT: Positive for sore throat, 15:54 Cardiovascular: Positive for chest pain, 15:54 Respiratory: Positive for cough, shortness of breath, 15:54 Neuro: Positive for headache, 15:54 All other systems are negative, Exam: 15:54 Constitutional: This is a well developed, well nourished patient who is awake, alert, sb4 and in no acute distress. Head/Face: Normocephalic, atraumatic. Eyes: Extra-ocular motions intact. Periorbital areas with no swelling, redness, or edema. ENT: Mucous membranes moist. Cardiovascular: Regular rate and rhythm with a normal S1 and S2. Respiratory: Lungs have equal breath sounds bilaterally, clear to auscultation and percussion. No rales, rhonchi or wheezes noted. No increased work of breathing, no retractions or nasal flaring. Abdomen/GI: Soft, non-tender, no distension. Skin: Warm, dry with normal turgor. Normal color with no rashes, no lesions, and no evidence of cellulitis. MS/ Extremity: Pulses equal, no cyanosis. Neurovascular intact. Full, normal range of motion. Neuro: Awake and alert, GCS 15, oriented to person, place, time, and situation. Motor strength 5/5 in all extremities. Sensory grossly intact. Vital Signs: 15:09 BP 158 / 94; Pulse 82; Resp 16; Temp 97.9; Pulse Ox 99% on R/A; Weight 102.06 kg; ss Height 5 ft. 9 in. ; Pain 10/10; 15:39 BP 144 / 90; Pulse 70; Resp 17; Temp 97.9(TE); Pulse Ox 96% on R/A; tm6 16:23 BP 124 / 74; Pulse 82; Pulse Ox 96% on R/A; tm6 15:09 Body Mass Index 33.23 (102.06 kg, 175.26 cm) ss 15:09 Pain Scale: Adult ss MDM: 15:10 Patient medically screened. sb4 15:54 Differential diagnosis: Bronchitis pneumonia, covid, flu, strep. sb4 16:39 Antibiotic administration: Not indicated, the patient has a suspected viral illness. sb4 The patient's [place] Deep Vein Thrombosis Score was calculated as follows: No Risks (0 Pts). The patient's pulmonary embolism risk score was calculated as follows: No Risks (0 Pts). Data reviewed: vital signs, nurses notes, lab test result(s), radiologic studies, and as a result, I will discharge patient. Independent interpretation of the following test(s) in the Emergency Department X-Ray: My interpretation is my interpretation of the chest xray image is no consolidation. Counseling: I had a detailed discussion with the patient and/or guardian regarding the historical points, exam findings, and any diagnostic results supporting the discharge/admit diagnosis, lab results, radiology results, to return to the emergency department if symptoms worsen or persist or if there are any questions or concerns that arise at home. 05/15 15:25 Order name: SARS RAPID; Complete Time: 15:54 sb4 05/15 15:25 Order name: Flu; Complete Time: 16:08 sb4 05/15 15:25 Order name: Strep sb4 05/15 15:53 Order name: Throat Culture EDMS 05/15 15:25 Order name: Chest Pa And Lat (2 Views) XRAY; Complete Time: 16:37 sb4 Administered Medications: 15:38 Drug: Acetaminophen PO 1000 mg PO once Route: PO; tm6 Disposition Summary: 05/15/23 16:40 Discharge Ordered Notes: Location: Home sb4 Problem: new sb4 Symptoms: have improved sb4 Condition: Stable sb4 Diagnosis - Acute bronchitis, unspecified sb4 Followup: sb4 - With: Emergency Department - When: As needed - Reason: Trouble breathing, Worsening of condition Discharge Instructions: - Discharge Summary Sheet sb4 - Acute Bronchitis, Adult sb4 Forms: - Medication Reconciliation Form sb4 - Thank You Letter sb4 - Antibiotic Education sb4 - Prescription Opioid Use sb4 - Patient Portal Instructions sb4 - Leadership Thank You Letter sb4 Prescriptions: - albuterol sulfate 90 mcg/actuation Inhalation HFA Aerosol Inhaler - inhale 2 puff INHALATION route every 4 to 6 hours as needed for bronchospasm; sb4 administer via ventilator; 1 Applicator; Refills: 0, Product Selection Permitted Addendum: 05/17/2023 07:40 I was immediately available for consultation during this patient's visit. I did not e c2 personally see the patient or guide the patient's care.. Signatures: Dispatcher [employer] Janie Garcia, RN RN Chantale Holden, PA-C PA-C sb4 Orlando Cantu MD MD ec2 Sameera Mc RN RN tm6
[2023-05-15 17:13] VITALS: TEMP 97.9
[2023-05-15 17:15] VITALS: O2SAT 96
[2023-05-15 17:17] VITALS: BP 124/74
== END 2023-05-15 16:52 | disposition home or self-care (01) ==
LOC: ER 14:59
DX: J20.9 Acute bronchitis, unspecified (principal); Z11.52 Encounter for screening for COVID-19
CPT/HCPCS: 36415; 71046; 87070; 87081; 87804; 87811; 99284

== ENCOUNTER 2023-05-17 10:44 | Emergency (ER) | payer SELFPAY ==
[2023-05-17 11:22] LABS: Absolute Lymphocytes (CBC) 2.7 K/uL (0.7-4.9); Hematocrit 39.6 % (39.6-49.0); Lymphocytes % 36.8 % (15.3-44.8); MCV 74.6 fL (80-100); MPV 7.4 fL (7.6-11.3); Platelets 272 thou/uL (152-406); RBC Red Blood Cell Count 5.31 M/uL (4.33-5.43)
[2023-05-17] MEDS ORDERED: FAMOTIDINE 20 MG/2 ML VIAL IV ONE (11:29)
[2023-05-17] MEDS ORDERED: ONDANSETRON 4 MG/2 ML VIAL ONE (11:29)
[2023-05-17 11:37] LABS: Albumin 3.6 g/dL (3.4-5.0); Bilirubin Direct 0.1 mg/dL (0-0.2); Bilirubin Indirect, Calculated 0.4 mg/dL (0.2-0.8); Bilirubin Total 0.5 mg/dL (0.2-1.0); Potassium 4.1 mEq/L (3.5-5.1); Protein, Total 7.8 g/dL (6.4-8.2); Troponin High Sensitivity 4.9 pg/mL (<58.9)
[2023-05-17] MEDS ORDERED: KETOROLAC 30 MG/ML INJ ONE (11:56)
--- NOTE | 2023-05-17 12:21 | RAD REPORT ---
EXAM DESCRIPTION: RAD - Chest Single View - 05/17/2023 12:15 pm CLINICAL HISTORY: CHEST PAIN COMPARISON: Chest Pa And Lat (2 Views) dated 05/15/2023; Chest Single View dated 04/18/2023; Chest S hugo View dated 02/08/2023; Chest Single View dated 02/02/2023 FINDINGS: Lines: None. Lungs: No evidence of edema or pneumonia. Pleural: No significant pleural effusions or pneumothorax. Cardiac: The heart size is within normal limits. Mediastinum: Within normal limits. Bones: No acute fractures. Other: None IMPRESSION: No acute cardiopulmonary disease.
--- NOTE | 2023-05-17 12:52 | ER ---
Nurse's Notes [facility] Name: Holden Morris Age: 38 yrs Sex: Male : 1985 Arrival Date: 05/17/2023 Time: 10:44 Bed 19 Private MD: Diagnosis: Chest pain, unspecified;Abdominal pain, Generalized;Nausea with vomiting, unspecified Presentation: 05/17 10:55 Chief complaint: Patient states: he was here 2 days ago with negative results. reports kc6 continued migraine, chest pain and vomiting blood with a little bit of belly pain. Coronavirus screen: At this time, the client does not indicate any symptoms associated with coronavirus-19. Ebola Screen: No symptoms or risks identified at this time. Initial Sepsis Screen: Does the patient meet any 2 criteria? No. Patient's initial sepsis screen is negative. Does the patient have a suspected source of infection? No. Patient's initial sepsis screen is negative. Risk Assessment: Do you want to hurt yourself or someone else? Patient reports no desire to harm self or others. Onset of symptoms was May 17, 2023. 10:55 Method Of Arrival: Ambulatory 6 10:55 Acuity: STONE 3 kc6 Triage Assessment: 10:56 General: Appears in no apparent distress. comfortable, Behavior is calm, cooperative, kc6 appropriate for age. Pain: Complains of pain in chest and abdomen. EENT: No signs and/or symptoms were reported regarding the EENT system. Neuro: Level of Consciousness is awake, alert, obeys commands, Oriented to person, place, time, situation, Appropriate for age Reports headache. Cardiovascular: Capillary refill < 3 seconds. Respiratory: Airway is patent Trachea midline Respiratory effort is even, unlabored, Respiratory pattern is regular, symmetrical. GI: Reports nausea, vomiting. : No signs and/or symptoms were reported regarding the genitourinary system. Derm: No signs and/or symptoms reported regarding the dermatologic system. Skin is intact, is healthy with good turgor, Skin is pink, warm \T\ dry. Musculoskeletal: No signs and/or symptoms reported regarding the musculoskeletal system. Circulation, motion, and sensation intact. Capillary refill < 3 seconds, Range of motion: intact in all extremities. Historical: - Allergies: 10:56 PENICILLINS; young; kc6 - PMHx: 10:56 SHAY; Anxiety; Asthma; autoimmune disease; GERD; Hypertension; Resolved; Migraines; kc6 - PSHx: 10:56 Cornea transplant L eye; kc6 - Immunization history:: Adult Immunizations up to date. - Social history:: Smoking status: unknown. Screenin:58 [facility] ED Fall Risk Assessment (Adult) History of falling in the last 3 months, kc6 including since admission No falls in past 3 months (0 pts) Confusion or Disorientation No (0 pts) Intoxicated or Sedated No (0 pts) Impaired Gait No (0 pts) Mobility Assist Device Used No (0 pt) Altered Elimination No (0 pt) Score/Fall Risk Level 0 - 2 = Low Risk. Abuse screen: Denies threats or abuse. Denies injuries from another. Nutritional screening: No deficits noted. Tuberculosis screening: No symptoms or risk factors identified. Assessment: 10:57 Reassessment: please see triage assessment. kc6 11:57 Reassessment: Patient appears in no apparent distress at this time. No changes from [facility] previously documented assessment. Patient and/or family updated on plan of care and expected duration. Pain level reassessed. Patient is alert, oriented x 3, equal unlabored respirations, skin warm/dry/pink. 12:57 Reassessment: Patient appears in no apparent distress at this time. No changes from 6 previously documented assessment. Patient and/or family updated on plan of care and expected duration. Pain level reassessed. Patient is alert, oriented x 3, equal unlabored respirations, skin warm/dry/pink. Vital Signs: 10:55 BP 150 / 90; Pulse 73; Resp 16 S; Temp 98.3(O); Pulse Ox 98% on R/A; Weight 102.06 kg kc6 (R); Height 5 ft. 9 in. (R); 12:02 BP 105 / 79; Pulse 74; Resp 16 S; Pulse Ox 100% on R/A; kc6 10:55 Body Mass Index 33.23 (102.06 kg, 175.26 cm) 6 ED Course: 10:47 Patient arrived in ED. mr 10:48 [facility] kb 10:48 Orlando Cantu MD is Attending Physician. kb 10:55 Nikki Nunez RN is Primary Nurse. kc6 10:56 Triage completed. kc6 10:56 Arm band placed on. kc6 10:58 Patient has correct armband on for positive identification. Bed in low position. Call kc6 light in reach. Side rails up X 1. Client placed on continuous cardiac and pulse oximetry monitoring. NIBP monitoring applied. 10:58 Patient maintains SpO2 saturation greater than 95% on room air. kc6 11:13 Inserted saline lock: 20 gauge in right antecubital area, using aseptic technique. kc6 Blood collected. 12:16 XRAY Chest (1 view) In Process Unspecified. EDMS 13:14 No provider procedures requiring assistance completed. IV discontinued, intact, kc6 bleeding controlled, No redness/swelling at site. Pressure dressing applied. Administered Medications: 11:23 Drug: NS 0.9% IV 1000 ml IV at 1000 ml once Route: IV; Rate: 1000 ml; Site: right kc6 antecubital; 13:14 Follow up: Response: No adverse reaction; IV Status: Completed infusion; IV Intake: kc6 1000ml 11:23 Drug: Ondansetron IVP 4 mg IVP once; over 2 minutes Route: IVP; Site: right antecubital;kc6 12:01 Follow up: Response: No adverse reaction; Nausea is decreased; Vomiting decreased kc6 11:23 Drug: Famotidine IVP 20 mg IVP once; dilute with 10 mL 0.9% NaCl; give over 2 minutes kc6 Route: IVP; Site: right antecubital; 12:01 Follow up: Response: No adverse reaction kc6 11:45 Drug: Ketorolac IVP 15 mg IVP once Route: IVP; Site: right antecubital; kc6 13:13 Follow up: Response: No adverse reaction kc6 Medication: 13:14 VIS not applicable for this client. kc6 Intake: 13:14 IV: 1000ml; Total: 1000ml. kc6 Outcome: 12:52 Discharge ordered by . anselmo 13:14 Discharged to home ambulatory, kc6 13:14 Condition: good 13:14 Discharge instructions given to patient, Instructed on discharge instructions, follow up and referral plans. Demonstrated understanding of instructions, follow-up care, 13:14 Patient left the ED. kc6 Signatures: Dispatcher [employer] EDMS Eve Murray, TOY-C FIELD APPLICATIONS SPECIALIST-CkAnika Dhaliwal, Reg Reg mr Nikki Nunez, RN RN kc6
--- NOTE | 2023-05-17 12:53 | EDPHYS ---
Physician Documentation [facility] Name: Holden Morris Age: 38 yrs Sex: Male : 1985 Arrival Date: 05/17/2023 Time: 10:44 Bed 19 Private MD: ED Physician Orlando Cantu HPI: 05/17 11:36 This 38 yrs old Black Male presents to ER via Ambulatory with complaints of Vomiting, kb Chest Pain, Headache. 11:36 Patient is a 38-year-old male who presents for migraine, chest pain, abdominal pain, kb nausea and vomiting that started 4 days ago. States he was seen here 2 days ago and tested negative for flu, strep and COVID. Reports symptoms continued today so he did not go to work so he could rest. States he was recommended to get a note work note to return later but since he started vomiting he decided to come in now.. Historical: - Allergies: 10:56 PENICILLINS; young; kc6 - PMHx: 10:56 SHAY; Anxiety; Asthma; autoimmune disease; GERD; Hypertension; Resolved; Migraines; kc6 - PSHx: 10:56 Cornea transplant L eye; kc6 - Immunization history:: Adult Immunizations up to date. - Social history:: Smoking status: unknown. ROS: 11:35 Respiratory: Negative for shortness of breath, cough, wheezing, and pleuritic chest kb pain, 11:35 Constitutional: Positive for fatigue, malaise, 11:35 Cardiovascular: Positive for chest pain, 11:35 Abdomen/GI: Positive for abdominal pain, nausea and vomiting, 11:35 All other systems are negative, 11:35 Neuro: Positive for headache, kb Exam: 11:13 Constitutional: This is a well developed, well nourished patient who is awake, alert, kb and in no acute distress. Head/Face: Normocephalic, atraumatic. ENT: Moist Mucous membranes Cardiovascular: Regular rate Respiratory: Respirations even and unlabored. No increased work of breathing. Talking in full sentences Abdomen/GI: Soft, non-tender. No distention Skin: Warm, dry with normal turgor. Normal color. MS/ Extremity: Pulses equal, no cyanosis. Neurovascular intact. Full, normal range of motion. Neuro: Awake and alert, GCS 15, oriented to person, place, time, and situation. Moves all extremities. Normal gait. 11:13 ECG was reviewed by the Attending Physician. Vital Signs: 10:55 BP 150 / 90; Pulse 73; Resp 16 S; Temp 98.3(O); Pulse Ox 98% on R/A; Weight 102.06 kg kc6 (R); Height 5 ft. 9 in. (R); 12:02 BP 105 / 79; Pulse 74; Resp 16 S; Pulse Ox 100% on R/A; kc6 10:55 Body Mass Index 33.23 (102.06 kg, 175.26 cm) kc6 MDM: 10:49 Patient medically screened. kb 11:36 Differential diagnosis: Nonspecific abd pain, gastritis, GERD, RI, abnormal EKG, kb migraine, viral illness. Data reviewed: vital signs, nurses notes. 12:51 Counseling: I had a detailed discussion with the patient and/or guardian regarding the kb historical points, exam findings, and any diagnostic results supporting the discharge/admit diagnosis, lab results, radiology results, the need for outpatient follow up, a family practitioner, to return to the emergency department if symptoms worsen or persist or if there are any questions or concerns that arise at home. 05/17 10:58 Order name: Basic Metabolic Panel; Complete Time: 11:38 kb 05/17 10:58 Order name: CBC with Diff; Complete Time: 11:28 kb 05/17 10:58 Order name: LFT's; Complete Time: 11:38 kb 05/17 10:58 Order name: Troponin HS; Complete Time: 11:38 kb 05/17 10:58 Order name: Lipase; Complete Time: 11:38 kb 05/17 10:58 Order name: XRAY Chest (1 view); Complete Time: 12:29 kb 05/17 10:58 Order name: EKG; Complete Time: 10:58 kb 05/17 10:58 Order name: Cardiac monitoring; Complete Time: 11:13 kb 05/17 10:58 Order name: EKG - Nurse/Tech; Complete Time: 11:13 kb 05/17 10:58 Order name: IV Saline Lock; Complete Time: 11:13 kb 05/17 10:58 Order name: Labs collected and sent; Complete Time: 11:13 kb 05/17 10:58 Order name: O2 Per Protocol; Complete Time: 11:13 kb 05/17 10:58 Order name: O2 Sat Monitoring; Complete Time: 11:13 kb EC: Rate is 68 beats/min. Rhythm is regular. QRS [place] is Normal. [place] interval is normal at kb 140 msec. QRS interval is normal at 84 msec. QT interval is normal at 387 msec. Administered Medications: 11:23 Drug: NS 0.9% IV 1000 ml IV at 1000 ml once Route: IV; Rate: 1000 ml; Site: right kc6 antecubital; 13:14 Follow up: Response: No adverse reaction; IV Status: Completed infusion; IV Intake: kc6 1000ml 11:23 Drug: Ondansetron IVP 4 mg IVP once; over 2 minutes Route: IVP; Site: right antecubital;kc6 12:01 Follow up: Response: No adverse reaction; Nausea is decreased; Vomiting decreased kc6 11:23 Drug: Famotidine IVP 20 mg IVP once; dilute with 10 mL 0.9% NaCl; give over 2 minutes kc6 Route: IVP; Site: right antecubital; 12:01 Follow up: Response: No adverse reaction 6 11:45 Drug: Ketorolac IVP 15 mg IVP once Route: IVP; Site: right antecubital; kc6 13:13 Follow up: Response: No adverse reaction kc6 Disposition Summary: 05/17/23 12:52 Discharge Ordered Notes: Location: Home kb Condition: Stable kb Diagnosis - Chest pain, unspecified kb - Abdominal pain, Generalized kb - Nausea with vomiting, unspecified kb Followup: kb - With: Emergency Department - When: As needed - Reason: Worsening of condition Followup: kb - With: Private Physician - When: 2 - 3 days - Reason: Recheck today's complaints, Continuance of care, Re-evaluation by your physician Discharge Instructions: - Discharge Summary Sheet kb - Nonspecific Chest Pain, Adult, [id number] kb Forms: - Work release form kb - Medication Reconciliation Form kb - Thank You Letter kb - Antibiotic Education kb - Prescription Opioid Use kb - Patient Portal Instructions kb - Leadership Thank You Letter kb Addendum: 05/18/2023 15:08 I was immediately available for consultation during this patient's visit. I did not e c2 personally see the patient or guide the patient's care.. Signatures: Dispatcher [employer] Eve Crenshaw FNP-C TOY-Ckb Nikki Nunez, RN RN kc6 Orlando Cantu MD MD ec2
[2023-05-17 13:32] VITALS: BP 150/90; TEMP 98.3; O2SAT 98
--- NOTE | 2023-05-18 17:25 | EKG ---
Test Date: 2023-05-17 Test Time: 11:03:38 Fiber Optics Engineer: KRISTINE MEASUREMENT RESULTS: Intervals: Rate: 68 MA: 140 QRSD: 84 QT: 364 QTc: 387 [place]: P: 37 MA: 140 QRS: 39 T: 19 INTERPRETIVE STATEMENTS: Normal sinus rhythm Normal ECG Compared to ECG 04/18/2023 10:27:19 No significant changes Electronically Signed On 05-18-23 17:20:37 [address] ROLLER ENGINEER by Silvano Victoria
== END 2023-05-17 13:14 | disposition home or self-care (01) ==
LOC: ER 10:44
DX: R07.89 Other chest pain (principal); R10.84 Generalized abdominal pain; R11.2 Nausea with vomiting, unspecified
CPT/HCPCS: 36415; 71045; 80048; 80076; 83690; 84484; 85025; 93005; 96361; 96374; 96375; 99285; J2405

== ENCOUNTER → 2023-06-28 | Emergency (ER) | payer OTHER ==
--- OUTSIDE RECORDS SUMMARY | 2023-06-28 15:52 | XMS REPORT | Continuity of Care Document ---
Author Name Unknown Address [address] [facility] [address] [id number] [facility] thconnect Address [address] [facility] 1 [address] [place] [address] Care Team Providers Care Newspaper Carriers Supervisor Name Role Phone PCP, PATIENT DOES NOT HAVE A Primary Care Physic josh Unavailable KO HENDRIX Attending Clinician Unavailable Ko Hendrix DO Attending Clinician KO HENDRIX Admitting Clinician Unavailable Allergies, Adverse Reactions, Alerts Allergy Name Allergy Type Status Severity Reaction(s) Onset Date Inactive Date Treating Clinician Comments Source NO KNOWN ALLERGIE S Drug Class Active [facility] Social History Social Habit Start Date Stop Date Quantity Comments Source Sexual orientation U [facility] Sex Assigned At 1985 00:00:00 1985 00:00:00 [facility] Smoking Status Start Date Stop Date Source Tobacco smoking consumption unknown [facility] Medications Ordered Medication Name Filled Medication Name Start Date Stop Date Current Medication? Ordering Clinician Indication Dosage Frequency Signature (SIG) Comments Components Source dexamethaso ne (DECADRON PHOSPHATE) injection 10 mg 2022-07 19:30: 00 06-07 18:29 :00 No 10mg 10 mg, Oral, ONCE, 1 dose, On Tue06/07/23 at 1330, Routine [facility] methylPREDN ISolone (MEDROL, COLIN,) 4 mg tablets 2022-07 00:00: 00 Yes [id number] Take by mouth SEE-INSTRU CTIONS. follow package directions [facility] benzonatate 100 mg capsule 2022-07 00:00: 00 Yes [id number] 100mg Take 1 capsule by mouth 3 (three) times daily as needed for Cough. [facility] Vital Signs Vital Name Observation Time Observation Value Comments S ource Systolic blood pressure 2023-06-07 18:12:00 113 mm[Hg] [facility] Diastolic blood pressure 2023-06-07 18:12:00 98 mm[Hg] [facility] Heart rate 2023-06-07 18:12:00 75 /min [facility] Body temperature 2023-06-07 18:12:00 36.61 Yari [facility] Respiratory rate 2023-06-07 18:12:00 14 /min [facility] Body height 2023-06-07 18:12:00 177.8 cm [facility] Body weight 2023-06-07 18:12:00 108.863 kg [facility] BMI 2023-06-07 18:12:00 34.44 kg/m2 [facility] Oxygen saturation in Arterial blood by Pulse oximetry 2023-06-07 18:12:00 100 /min [facility] Procedures Procedure Date / Time Performed Performing Clinicia n Source ASSIGNMENT OF BENEFITS 2023-06-07 20:25:00 Docto r Unassigned, [place] [facility] NOTICE OF PRIVACY PRACTICES 2023-06-07 20:24:45 Doctor Unassigned, [place] [facility] XR CHEST 1 VW 2023-06-07 20:16:56 Ko Hendrix [facility] RAPID INFLUENZA A/B 2023-06-07 18:27:00 Hamida Hendrix [facility] COVID-19 (ID NOW RAPID TESTING) 2023-06-07 18:27:00 Ko Hendrix [facility] CONSENT/REFUSAL FOR DIAGNOSIS AND TREATMENT 2023-06-07 17:57:37 Doctor Unassigned, [place] [facility] Encounters Start Date/Time End Date/Time Encounter Type Admission Type Attending Clinicians Care Facility Care Department Encounter ID Source 2023-06-07 12:17:00 2023-06-07 14:48:00 Emergency X KO HENDRIX [facility] ERT [id number] [facility] 2023-06-07 12:17:00 2023-06-07 14:48:00 Emergency Ko Hendrix [facility] [id number] [facility]
[2023-06-28 16:46] LABS: Absolute Lymphocytes (CBC) 2.7 K/uL (0.7-4.9); Hematocrit 38.5 % (39.6-49.0); Lymphocytes % 41.7 % (15.3-44.8); MCV 74.9 fL (80-100); MPV 7.3 fL (7.6-11.3); Platelets 246 thou/uL (152-406); RBC Red Blood Cell Count 5.14 M/uL (4.33-5.43)
--- NOTE | 2023-06-28 17:02 | RAD REPORT ---
EXAM DESCRIPTION: CTStone Protocol - 06/28/2023 4:38 pm CLINICAL HISTORY: left flank pain COMPARISON: Abdomen Pelvis W Contrast dated 04/07/2023; Stone Protocol dated 03/20/2023; Abdomen P brian W Contrast dated 01/17/2023; Abdomen Pelvis W Contrast dated 11/10/2022 TECHNIQUE: CT of the abdomen and pelvis was performed. All CT scans are performed using dose optimization technique as appropriate and may include automated exposure control or mA/KV adjustment according to patient size. FINDINGS: Lower chest: No acute abnormality. Liver: No acute abnormality or suspicious lesions. Biliary: No biliary ductal dilatation. Stomach: No significant focal abnormality. Duodenum: No significant focal abnormality. Pancreas: No significant abnormality. Spleen: No significant abnormality. Adrenal: No suspicious lesions. Kidney/ureter: No hydronephrosis. No renal calculi. Retroperitoneum: No retroperitoneal adenopathy. Vascular: No aneurysm. Bowel: No significant focal abnormality. Normal appendix. Peritoneum: No ascites or free air. Bladder: Grossly unremarkable. Reproductive: No adnexal masses. Bones: No acute fracture. Other: n/a IMPRESSION: No acute intra-abdominal or pelvic finding. Normal appendix. No urinary tract calculi.
[2023-06-28 17:05] LABS: Potassium 3.8 mEq/L (3.5-5.1)
--- NOTE | 2023-06-28 17:19 | EDPHYS ---
Physician Documentation [facility] Name: Holden Morris Age: 38 yrs Sex: Male : 1985 Arrival Date: 06/28/2023 Time: 15:49 Bed IW3 Private MD: ED Physician Jose Ramon Tinajero HPI: 06/28 16:25 This 38 yrs old Black Male presents to ER via Ambulatory with complaints of Side pain. rn 16:25 The patient complains of pain in the left low back and left mid back. Onset: The rn symptoms/episode began/occurred this morning. Modifying factors: The symptoms are alleviated by remaining still, the symptoms are aggravated by movement. Associated signs and symptoms: Pertinent negatives: fever, hematuria, vomiting. Severity of pain: At its worst the pain was moderate in the emergency department the pain has improved. The patient has experienced a previous episode. The patient has not recently seen a physician. Patient reports left flank pain that began this morning. No fever. No history of kidney stones. No trauma. No physical exertion recently. Patient reports has happened to him once before and was in kidney failure so wanted to get that checked. Otherwise requests for work excuse through Tuesday. Does not feel ill. Denies any vomiting or diarrhea or other reason for dehydration.. Historical: - Allergies: 16:05 PENICILLINS; young; ll1 - PMHx: 16:05 SHAY; Anxiety; Asthma; autoimmune disease; GERD; Hypertension; Resolved; Migraines; ll1 - PSHx: 16:05 Cornea transplant L eye; ll1 - Immunization history:: Adult Immunizations up to date. - Social history:: Smoking status: Patient denies any tobacco usage or history of. - Family history:: not pertinent. - Hospitalizations: : No recent hospitalization is reported. ROS: 16:25 Constitutional: Negative for fever, chills, and weight loss, Cardiovascular: Negative rn for chest pain, palpitations, and edema, Respiratory: Negative for shortness of breath, cough, wheezing, and pleuritic chest pain, Abdomen/GI: Positive for left flank pain Back: Positive for left flank pain : Negative for injury, bleeding, discharge, and swelling, MS/Extremity: Negative for injury and deformity, Skin: Negative for injury, rash, and discoloration, Neuro: Negative for headache, weakness, numbness, tingling, and seizure, Exam: 16:25 Constitutional: This is a well developed, well nourished patient who is awake, alert, rn and in no acute distress. Ambulatory to diagnostic chair area without assistance or distress. Head/Face: Normocephalic, atraumatic. ENT: Moist mucous membranes Cardiovascular: Regular rate and rhythm. No pulse deficits. Respiratory: No increased work of breathing, no retractions or nasal flaring. Abdomen/GI: Soft, non-tender Back: Positive left CVA tenderness Skin: Warm, dry, no rashes MS/ Extremity: Pulses equal, no cyanosis. Neuro: Awake and alert, GCS 15, oriented to person, place, time, and situation. Motor strength 5/5 in all extremities. Sensory grossly intact. Normal gait. Vital Signs: 16:15 BP 118 / 70; Pulse 71; Resp 18; Temp 97.9; Pulse Ox 98% ; Weight 99.79 kg; Height 5 ft. ll1 10 in. ; Pain 10/10; 16:15 Body Mass Index 31.57 (99.79 kg, 177.8 cm) ll1 16:15 Pain Scale: Adult ll1 MDM: 16:00 Patient medically screened. rn 17:17 ED course: Chart review from end of January this year shows negative stress test, I do not rn feel that his left flank pain is related to cardiac etiology, with negative stress test and 38-year-old. Renal function is normal at this time. CT stone protocol does not show anything acute. CK normal. No other acute etiology at this time. Will DC home with return precautions.. 06/29 06:59 Differential diagnosis: nephrolithiasis, diverticulitis, muscle spasm, musculoskeletal rn pain, rhabdo. Data reviewed: vital signs, nurses notes, lab test result(s), radiologic studies, CT scan, and as a result, I will discharge patient. Counseling: I had a detailed discussion with the patient and/or guardian regarding the historical points, exam findings, and any diagnostic results supporting the discharge/admit diagnosis, lab results, radiology results, the need for outpatient follow up, to return to the emergency department if symptoms worsen or persist or if there are any questions or concerns that arise at home. Special discussion: I discussed with the patient/guardian in detail that at this point there is no indication for admission to the hospital. It is understood, however, that if the symptoms persist or worsen the patient needs to return immediately for re-evaluation. 06/28 16:09 Order name: CBC with Diff; Complete Time: 17:03 rn 06/28 16:09 Order name: Basic Metabolic Panel; Complete Time: 17:11 rn 06/28 16:09 Order name: Urinalysis w/ reflexes rn 06/28 16:09 Order name: CK; Complete Time: 17:11 rn 06/28 16:09 Order name: CT Stone Protocol; Complete Time: 17:03 rn 06/28 16:09 Order name: IV Start; Complete Time: 16:36 rn Administered Medications: No medications were administered Disposition Summary: 06/28/23 17:18 Discharge Ordered Notes: Location: Home rn Problem: new rn Symptoms: have improved rn Condition: Stable rn Diagnosis - Left flank pain rn - Unspecified symptoms and signs involving the musculoskeletal system rn Followup: rn - With: Private Physician - When: As needed - Reason: Recheck today's complaints, Re-evaluation by your physician Discharge Instructions: - Discharge Summary Sheet rn - Musculoskeletal Pain rn - Form - Return To Work rn Forms: - Work release form rn - Medication Reconciliation Form rn - Thank You Letter rn - Antibiotic kiln burner - Prescription Opioid Use rn - Patient Portal Instructions rn - Leadership Thank You Letter rn Prescriptions: - Cyclobenzaprine 10 mg Oral tablet - take 1 tablet ORAL route every 8 hours As needed; 12 tablet; Refills: 0, rn Product Selection Permitted Signatures: Dispatcher [employer] Jose Ramon Gorman MD MD rn Lewis, Lynsay, RN RN ll1
--- NOTE | 2023-06-28 17:19 | ER ---
Nurse's Notes [facility] Name: Holden Morris Age: 38 yrs Sex: Male : 1985 Arrival Date: 06/28/2023 Time: 15:49 Bed IW3 Private MD: Diagnosis: Left flank pain;Unspecified symptoms and signs involving the musculoskeletal system Presentation: 06/28 16:15 Chief complaint: Patient states: L flank pain for 1 day. Believes it his kidneys again. ll1 No fever or N/V. Coronavirus screen: Client denies travel out of the [place] in the last 14 days. At this time, the client does not indicate any symptoms associated with coronavirus-19. Ebola Screen: Patient denies travel to an Ebola-affected area in the 21 days before illness onset. Initial Sepsis Screen: Does the patient meet any 2 criteria? No. Patient's initial sepsis screen is negative. Does the patient have a suspected source of infection? No. Patient's initial sepsis screen is negative. Risk Assessment: Do you want to hurt yourself or someone else? Patient reports no desire to harm self or others. Onset of symptoms was June 28, 2023. 16:15 Method Of Arrival: Ambulatory ll1 16:15 Acuity: STONE 3 ll1 Triage Assessment: 16:15 General: Appears uncomfortable, Behavior is calm, cooperative, appropriate for age. ll1 Pain: Complains of pain in L trunk Pain currently is 10 out of 10 on a pain scale. Quality of pain is described as aching. GI: Reports L trunk pain Patient currently denies nausea, vomiting. : Denies burning with urination. Historical: - Allergies: 16:05 PENICILLINS; young; ll1 - PMHx: 16:05 SHAY; Anxiety; Asthma; autoimmune disease; GERD; Hypertension; Resolved; Migraines; ll1 - PSHx: 16:05 Cornea transplant L eye; ll1 - Immunization history:: Adult Immunizations up to date. - Social history:: Smoking status: Patient denies any tobacco usage or history of. - Family history:: not pertinent. - Hospitalizations: : No recent hospitalization is reported. Assessment: 17:25 Reassessment: No changes from previously documented assessment. Patient and/or family ll1 updated on plan of care and expected duration. Pain level reassessed. Vital Signs: 16:15 BP 118 / 70; Pulse 71; Resp 18; Temp 97.9; Pulse Ox 98% ; Weight 99.79 kg; Height 5 ft. ll1 10 in. ; Pain 10/10; 16:15 Body Mass Index 31.57 (99.79 kg, 177.8 cm) ll1 16:15 Pain Scale: Adult ll1 ED Course: 15:59 Patient arrived in ED. mg5 16:00 Jose Ramon Tinajero MD is Attending Physician. rn 16:05 Arm band placed on. ll1 16:16 Triage completed. ll1 16:34 Initial lab(s) drawn, by sc, sent to lab. Inserted saline lock: 22 gauge in left ph antecubital area, using aseptic technique. Blood collected. 16:36 CK Sent. ph 16:36 Basic Metabolic Panel Sent. ph 16:36 CBC with Diff Sent. ph 16:38 CT Stone Protocol In Process Unspecified. EDMS 17:26 No provider procedures requiring assistance completed. IV discontinued, intact, ll1 bleeding controlled, No redness/swelling at site. Pressure dressing applied. Administered Medications: No medications were administered Outcome: 17:18 Discharge ordered by MD. rn 17:27 Patient left the ED. ll1 17:27 Discharged to home ambulatory, ll1 17:27 Condition: stable 17:27 Discharge instructions given to patient, Instructed on discharge instructions, follow up and referral plans. medication usage, Demonstrated understanding of instructions, follow-up care, medications, Prescriptions given X 1, Signatures: Dispatcher [employer] EDMS Jose Ramon Tinajero MD MD rn Hall, Patricia, RN RN ph Lewis, Lynsay, RN RN [facility] Mckoy mg5 Corrections: (The following items were deleted from the chart) 16:17 16:15 Pulse 71bpm; Resp 18bpm; Pulse Ox 98%; Pain 10/10, Adult; ll1 ll1 16:19 16:15 Pulse 71bpm; Resp 18bpm; Pulse Ox 98%; 99.79 kg; Height 5 ft. 10 in.; BMI: 31.5; ll1 Pain 10/10, Adult; ll1
[2023-06-28 20:24] VITALS: BP 118/70; TEMP 97.9; O2SAT 98
== END ==
LOC: ER 15:49
DX: R29.91 Unspecified symptoms and signs involving the musculoskeletal system (principal); Z88.0 Allergy status to penicillin
CPT/HCPCS: 36415; 74176; 76377; 80048; 82550; 85025; 99284

== ENCOUNTER → 2023-07-28 | Emergency (ER) | payer OTHER ==
[~2023-07-28] MED LIST: IBUPROFEN 400 MG TAB ONE
--- OUTSIDE RECORDS SUMMARY | 2023-07-28 09:00 | XMS REPORT | Continuity of Care Document ---
Author Name Unknown Address [address] [facility] 1 [address] [id number] [facility] thconnect Address [address] [facility] 1 [address] [place] [address] Care Team Providers Care Bun Panner Name Role Phone PCP, PATIENT DOES NOT HAVE A Primary Care Physic josh Unavailable KO HENDRIX Attending Clinician Unavailable Ko Hendrix DO Attending Clinician KO HENDRIX Admitting Clinician Unavailable Allergies, Adverse Reactions, Alerts Allergy Name Allergy Type Status Severity Reaction(s) Onset Date Inactive Date Treating Clinician Comments Source NO KNOWN ALLERGIE S Drug Class Active [facility] Social History Social Habit Start Date Stop Date Quantity Comments Source Sexual orientation [facility] Sex Assigned At 1985 00:00:00 1985 00:00:00 [facility] Smoking Status Start Date Stop Date Source Tobacco smoking consumption unknown [facility] Medications Ordered Medication Name Filled Medication Name Start Date Stop Date Current Medication? Ordering Clinician Indication Dosage Frequency Signature (SIG) Comments Components Source dexamethaso ne (DECADRON PHOSPHATE) injection 10 mg 2022-07 19:30: 00 06-07 18:29 :00 No 10mg 10 mg, Oral, ONCE, 1 dose, On Tue06/07/23 at 1330, Routine [facility] methylPREDN ISolone (MEDROL, COLIN,) 4 mg tablets 2022-07 00:00: 00 Yes [id number] Take by mouth SEE-INSTRU CTIONS. follow package directions [facility] benzonatate 100 mg capsule 2022-07 00:00: 00 Yes [id number] 100mg Take 1 capsule by mouth 3 (three) times daily as needed for Cough. [facility] Vital Signs Vital Name Observation Time Observation Value Comments S ource Systolic blood pressure 2023-06-07 18:12:00 113 mm[Hg] [facility] Diastolic blood pressure 2023-06-07 18:12:00 98 mm[Hg] [facility] Heart rate 2023-06-07 18:12:00 75 /min [facility] Body temperature 2023-06-07 18:12:00 36.61 Yari [facility] Respiratory rate 2023-06-07 18:12:00 14 /min [facility] Body height 2023-06-07 18:12:00 177.8 cm [facility] Body weight 2023-06-07 18:12:00 108.863 kg [facility] BMI 2023-06-07 18:12:00 34.44 kg/m2 [facility] Oxygen saturation in Arterial blood by Pulse oximetry 2023-06-07 18:12:00 100 /min [facility] Procedures Procedure Date / Time Performed Performing Clinicia n Source ASSIGNMENT OF BENEFITS 2023-06-07 20:25:00 Docto r Unassigned, [place] [facility] NOTICE OF PRIVACY PRACTICES 2023-06-07 20:24:45 Doctor Unassigned, [place] [facility] XR CHEST 1 VW 2023-06-07 20:16:56 Ko Hendrix [facility] RAPID INFLUENZA A/B 2023-06-07 18:27:00 Hamida Hendrix [facility] COVID-19 (ID NOW RAPID TESTING) 2023-06-07 18:27:00 Ko Hendrix [facility] CONSENT/REFUSAL FOR DIAGNOSIS AND TREATMENT 2023-06-07 17:57:37 Doctor Unassigned, [place] [facility] Encounters Start Date/Time End Date/Time Encounter Type Admission Type Attending Clinicians Care Facility Care Department Encounter ID Source 2023-06-07 12:17:00 2023-06-07 14:48:00 Emergency X KO HENDRIX [facility] ERT [id number] [facility] 2023-06-07 12:17:00 2023-06-07 14:48:00 Emergency Ko Hendrix [facility] [id number] [facility]
--- NOTE | 2023-07-28 09:51 | RAD REPORT ---
EXAM DESCRIPTION: CT - Head Brain Wo Cont - 07/28/2023 9:26 am CLINICAL HISTORY: fall, head injury COMPARISON: Head Brain Wo Cont dated 11/09/2021; Head Brain Wo Cont dated 11/04/2021 TECHNIQUE: Noncontrast head CT images were obtained without IV contrast. Multiplanar reformats were generated and reviewed. All CT scans are performed using dose optimization technique as appropriate and may include automated exposure control or mA/KV adjustment according to patient size. FINDINGS: No intracranial hemorrhage, mass, or edema. Midline structures are unremarkable. Normal ventricular caliber for age. Montalvo-white matter differentiation is preserved, without evidence of acute infarct. No abnormal extra- axial fluid collections. Mastoid air cells and visualized portions of the paranasal sinuses are clear. No acute bony findings. IMPRESSION: No evidence of an acute intracranial process.
--- NOTE | 2023-07-28 10:31 | RAD REPORT ---
EXAM DESCRIPTION: [facility]23 9:56 am CLINICAL HISTORY: BLUNT CHEST TRAUMA COMPARISON: Chest Single View dated 05/17/2023; Chest Pa And Lat (2 Views) dated 05/15/2023; Chest S hugo View dated 04/18/2023; Chest Single View dated 02/08/2023 TECHNIQUE: Portable AP view of the chest. FINDINGS: The lungs are clear. No pneumothorax or effusion. The cardiomediastinal contours are unre markable. IMPRESSION: No acute cardiopulmonary process.
--- NOTE | 2023-07-28 10:33 | RAD REPORT ---
EXAM DESCRIPTION: RAD - Shoulder Left 2 View - 07/28/2023 9:56 am CLINICAL HISTORY: PAIN COMPARISON: Shoulder Left 2 View dated 01/14/2018 TECHNIQUE: Internal and external rotation views of the left shoulder were obtained. FINDINGS: There is no fracture or dislocation. AC joint is normal in appearance. No acute or suspici ous findings. IMPRESSION: Negative two-view left shoulder examination.
--- NOTE | 2023-07-28 10:42 | RAD REPORT ---
EXAM DESCRIPTION: RAD - Ribs Left - 07/28/2023 9:56 am CLINICAL HISTORY: PAIN COMPARISON: Chest radiograph of earlier the same day TECHNIQUE: Left ribs, 3 views. FINDINGS: No displaced rib fracture is evident. No aggressive rib lesion. No underlying pneumothorax, effusion, infiltrate or pulmonary contusion. IMPRESSION: Negative left rib series.
--- NOTE | 2023-07-28 10:47 | RAD REPORT ---
EXAM DESCRIPTION: RAD - Lumbar Spine 3 Views - 07/28/2023 9:56 am CLINICAL HISTORY: PAIN COMPARISON: None available TECHNIQUE: Lumbar spine, 3 views. FINDINGS: Lumbar vertebral bodies are normal in height and alignment. No fracture or acute bony proc ess seen. No disc space narrowing. No other significant findings. IMPRESSION: Negative Lumbar Spine examination.
--- NOTE | 2023-07-28 10:54 | ER ---
Nurse's Notes [facility] Name: Holden Morris Age: 38 yrs Sex: Male : 1985 Arrival Date: 07/28/2023 Time: 08:57 Bed IW1 Private MD: Diagnosis: Fall on same level, unspecified;Unspecified injury of head, initial encounter;Contusion of back wall of thorax Presentation: 07/28 09:14 Chief complaint: Patient states: slipped and fell onto back in the rain yesterday. Pt aa5 c/o back pain and head pain. Coronavirus screen: At this time, the client does not indicate any symptoms associated with coronavirus-19. Ebola Screen: Patient denies travel to an Ebola-affected area in the 21 days before illness onset. Initial Sepsis Screen: Does the patient meet any 2 criteria? No. Patient's initial sepsis screen is negative. Does the patient have a suspected source of infection? No. Patient's initial sepsis screen is negative. Risk Assessment: Do you want to hurt yourself or someone else? Patient reports no desire to harm self or others. Onset of symptoms was July 27, 2023. 09:14 Acuity: STONE 4 aa5 09:14 Method Of Arrival: Ambulatory aa5 Historical: - Allergies: 09:13 PENICILLINS; young; aa5 - PMHx: 09:13 SHAY; Anxiety; Asthma; autoimmune disease; GERD; Hypertension; Resolved; Migraines; aa5 - PSHx: 09:13 Cornea transplant L eye; aa5 - Family history:: not pertinent. - Hospitalizations: : No recent hospitalization is reported. Assessment: 11:01 Neuro: Level of Consciousness is awake, alert, obeys commands, Oriented to person, aa5 place, time, situation. Respiratory: Airway is patent Respiratory effort is even, unlabored, Respiratory pattern is regular, symmetrical. Derm: Skin is dry, Skin is normal, Skin temperature is warm. Vital Signs: 09:14 BP 128 / 86; Pulse 84; Resp 18 S; Temp 98.4(TE); Pulse Ox 100% on R/A; Weight 102.06 kg aa5 (R); Height 5 ft. 10 in. (R); 09:14 Body Mass Index 32.28 (102.06 kg, 177.8 cm) aa5 ED Course: 09:04 Patient arrived in ED. kj1 09:04 Jose Ramon Tinajero MD is Attending Physician. rn 09:13 Arm band placed on. aa5 09:15 Triage completed. aa5 09:27 CT Head Brain wo Cont In Process Unspecified. EDMS 09:58 XRAY Ribs LEFT In Process Unspecified. EDMS 09:58 XRAY Chest (1 view) In Process Unspecified. EDMS 09:58 XRAY Lumbar Spine (3 Views) In Process Unspecified. EDMS 09:58 XRAY Shoulder LEFT 2 view In Process Unspecified. EDMS 11:01 No provider procedures requiring assistance completed. Patient did not have IV access aa5 during this emergency room visit. Administered Medications: 09:20 Drug: Ibuprofen PO 800 mg PO once Route: PO; aa5 Outcome: 10:54 Discharge ordered by MD. rn 11:01 Discharged to home ambulatory, aa5 11:01 Condition: stable 11:01 Discharge instructions given to patient, Instructed on discharge instructions, follow up and referral plans. Demonstrated understanding of instructions, follow-up care, 11:02 Patient left the ED. aa5 Signatures: Dispatcher [employer] EDJose Ramon Mcintyre MD MD rn Calderon, Audri, RN RN [email or web address] Dora Murray [email or web address] Corrections: (The following items were deleted from the chart) 09:16 09:14 Pulse 84bpm; Resp 18bpm; Spontaneous; Pulse Ox 100% RA; Temp 98.4F Temporal; aa5 aa5 09:16 09:14 Pulse 84bpm; Resp 18bpm; Spontaneous; Pulse Ox 100% RA; Temp 98.4F Temporal; aa5 102.06 kg Reported; Height 5 ft. 10 in. Reported; BMI: 32.2; aa5
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
[2023-07-28 11:18] VITALS: BP 128/86; TEMP 98.4; O2SAT 100
== END ==
LOC: ER 08:57
DX: S09.90XA Unspecified injury of head, initial encounter (principal); S20.20XA Contusion of thorax, unspecified, initial encounter; W18.30XA Fall on same level, unspecified, initial encounter; I10 Essential (primary) hypertension; J45.909 Unspecified asthma, uncomplicated; M35.9 Systemic involvement of connective tissue, unspecified; K21.9 Gastro-esophageal reflux disease without esophagitis; F41.9 Anxiety disorder, unspecified; Z88.0 Allergy status to penicillin
CPT/HCPCS: 70450; 71045; 72100; 99283

== ENCOUNTER → 2023-08-23 | Emergency (ER) | payer OTHER ==
[~2023-08-23] MED LIST changes: -IBUPROFEN 400 MG TAB ONE; +MORPHINE 4 MG/ML SYR ONE; +ONDANSETRON 4 MG (ODT) TAB ONE
--- OUTSIDE RECORDS SUMMARY | 2023-08-23 07:17 | XMS REPORT | Continuity of Care Document ---
Author Name Unknown Address [address] [facility] [address] [id number] [facility] thconnect Address [address] [facility] [address] [place] [address] Care Team Providers Care Wet Suit Gluer Name Role Phone PCP, PATIENT DOES NOT HAVE A Primary Care Physic josh Unavailable KO GUILLAUME Attending Clinician Unavailable Ko Guillaume DO Attending Clinician KO GUILLAUME Admitting Clinician Unavailable Allergies, Adverse Reactions, Alerts Allergy Name Allergy Type Status Severity Reaction(s) Onset Date Inactive Date Treating Clinician Comments Source NO KNOWN ALLERGIE S Drug Class Active General acute hospital Social History Social Habit Start Date Stop Date Quantity Comments Source Sexual orientation U [facility] Sex Assigned At 1985 00:00:00 1985 00:00:00 [facility] Smoking Status Start Date Stop Date Source Tobacco smoking consumption unknown [facility] Medications Ordered Medication Name Filled Medication Name Start Date Stop Date Current Medication? Ordering Clinician Indication Dosage Frequency Signature (SIG) Comments Components Source dexamethaso ne (DECADRON PHOSPHATE) injection 10 mg 2022-07 19:30: 00 06-07 18:29 :00 No 10mg 10 mg, Oral, ONCE, 1 dose, On Tue06/07/23 at 1330, Routine General acute hospital methylPREDN ISolone (MEDROL, COLIN,) 4 mg tablets 2022-07 00:00: 00 Yes [id number] Take by mouth SEE-INSTRU CTIONS. follow package directions General acute hospital benzonatate 100 mg capsule 2022-07 00:00: 00 Yes [id number] 100mg Take 1 capsule by mouth 3 (three) times daily as needed for Cough. General acute hospital Vital Signs Vital Name Observation Time Observation Value Comments S elvin Systolic blood pressure 2023-06-07 18:12:00 113 mm[Hg] [facility] Diastolic blood pressure 2023-06-07 18:12:00 98 mm[Hg] [facility] Heart rate 2023-06-07 18:12:00 75 /min [facility] Body temperature 2023-06-07 18:12:00 36.61 Yari [facility] Respiratory rate 2023-06-07 18:12:00 14 /min [facility] Body height 2023-06-07 18:12:00 177.8 cm [facility] Body weight 2023-06-07 18:12:00 108.863 kg [facility] BMI 2023-06-07 18:12:00 34.44 kg/m2 [facility] Oxygen saturation in Arterial blood by Pulse oximetry 2023-06-07 18:12:00 100 /min [facility] Procedures Procedure Date / Time Performed Performing Clinicia n Source ASSIGNMENT OF BENEFITS 2023-06-07 20:25:00 Docto r Unassigned, [place] [facility] NOTICE OF PRIVACY PRACTICES 2023-06-07 20:24:45 Doctor Unassigned, [place] [facility] XR CHEST 1 VW 2023-06-07 20:16:56 Ko Guillaume [facility] RAPID INFLUENZA A/B 2023-06-07 18:27:00 Hamida Guillaume [facility] COVID-19 (ID NOW RAPID TESTING) 2023-06-07 18:27:00 Ko Guillaume [facility] CONSENT/REFUSAL FOR DIAGNOSIS AND TREATMENT 2023-06-07 17:57:37 Doctor Unassigned, [place] [facility] Encounters Start Date/Time End Date/Time Encounter Type Admission Type Attending Clinicians Care Facility Care Department Encounter ID Source 2023-06-07 12:17:00 2023-06-07 14:48:00 Emergency X KO GUILLAUME [facility] ERT [id number] General acute hospital 2023-06-07 12:17:00 2023-06-07 14:48:00 Emergency Ko Guillaume [facility] [id number] General acute hospital
[2023-08-23 07:56] LABS: SARS-CoV-2 Antigen Rapid Res Negative (Negative)
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
--- NOTE | 2023-08-23 09:26 | ER ---
Nurse's Notes [facility] Name: Holden Morris Age: 38 yrs Sex: Male : 1985 Arrival Date: 08/23/2023 Time: 07:15 Bed 14 Private MD: Diagnosis: Nausea with vomiting, unspecified Presentation: 08/23 07:25 Chief complaint: Patient states: Body aches, N/V/D, fatigue, cough/runny nose started ll1 this morning. Coronavirus screen: Vaccine status: Patient reports receiving the 2nd dose of the covid vaccine. Client denies travel out of the [place] in the last 14 days. chills, cough unrelated to allergies, diarrhea, fatigue, muscle pain, nausea, runny nose, vomiting. Client presents with at least one sign or symptom that may indicate coronavirus-19. Standard/surgical mask placed on the client. Ebola Screen: Patient denies travel to an Ebola-affected area in the 21 days before illness onset. Initial Sepsis Screen: Does the patient meet any 2 criteria? No. Patient's initial sepsis screen is negative. Does the patient have a suspected source of infection? Yes: Productive cough/pneumonia. Risk Assessment: Do you want to hurt yourself or someone else? Patient reports no desire to harm self or others. Onset of symptoms was August 23, 2023. 07:25 Method Of Arrival: Ambulatory ll1 07:25 Acuity: STONE 4 ll1 Triage Assessment: 07:25 General: Appears uncomfortable, Behavior is calm, cooperative, appropriate for age. ll1 Pain: Complains of pain in body aches. EENT: Reports nasal discharge. Neuro: Reports headache. Respiratory: Reports cough that is. GI: Reports diarrhea, nausea, vomiting. Musculoskeletal: Circulation, motion, and sensation intact. Capillary refill < 3 seconds. Historical: - Allergies: 07:25 PENICILLINS; ll1 - PMHx: 07:25 SHAY; Anxiety; Asthma; autoimmune disease; GERD; Hypertension; Resolved; Migraines; ll1 - PSHx: 07:25 Cornea transplant L eye; ll1 - Immunization history:: Adult Immunizations up to date. - Social history:: Smoking status: Patient denies any tobacco usage or history of. Screenin:[facility] ED Fall Risk Assessment (Adult) History of falling in the last 3 months, db including since admission No falls in past 3 months (0 pts) Score/Fall Risk Level 0 - 2 = Low Risk Oriented to surroundings, Maintained a safe environment. Abuse screen: Denies threats or abuse. Denies injuries from another. Nutritional screening: No deficits noted. Tuberculosis screening: No symptoms or risk factors identified. Assessment: 07:30 Reassessment: Patient appears in no apparent distress at this time. Patient and/or db family updated on plan of care and expected duration. Pain level reassessed. Patient is alert, oriented x 3, equal unlabored respirations, skin warm/dry/pink. General: Appears in no apparent distress. comfortable, Behavior is calm, cooperative. Pain: Complains of pain in face. Neuro: Level of Consciousness is awake, alert, obeys commands, Oriented to person, place, time, situation. Respiratory: Airway is patent Respiratory effort is even, unlabored, Respiratory pattern is regular, symmetrical. 09:44 Reassessment: Patient appears in no apparent distress at this time. Patient and/or db family updated on plan of care and expected duration. Pain level reassessed. Patient is alert, oriented x 3, equal unlabored respirations, skin warm/dry/pink. Patient states feeling better. Vital Signs: 07:25 BP 139 / 104; Pulse 79; Resp 16; Temp 98.4; Pulse Ox 95% on R/A; Weight 111.13 kg; ll1 Height 5 ft. 10 in. ; Pain 10/10; 08:30 BP 125 / 87; Pulse 69; Resp 18; Pulse Ox 97% on R/A; db 09:00 BP 124 / 78; Pulse 65; Resp 18; Pulse Ox 95% on R/A; db 09:30 BP 141 / 86; Pulse 62; Resp 18; Pulse Ox 98% on R/A; db 07:25 Body Mass Index 35.15 (111.13 kg, 177.8 cm) ll1 07:25 Pain Scale: Adult ll1 ED Course: 07:16 Patient arrived in ED. rg4 07:18 Jose Francisco Wheeler DO is Attending Physician. ms3 07:24 Arm band placed on Patient placed in an exam room, on a stretcher. ll1 07:27 Yaa Alvarez, RN is Primary Nurse. db 07:27 Triage completed. ll1 07:33 SARS RAPID Sent. db 07:33 Flu Sent. db 07:36 Patient has correct armband on for positive identification. Bed in low position. Call db light in reach. Side rails up X 1. Warm blanket given. 09:24 Navin Longo DO is Referral Physician. ms3 09:44 Provided Education on: DISCHARGE. db 09:44 No provider procedures requiring assistance completed. Patient did not have IV access db during this emergency room visit. Administered Medications: 07:33 Drug: Ondansetron PO 4 mg PO once Route: PO; db 09:44 Follow up: Response: No adverse reaction db Medication: :44 VIS not applicable for this client. db Outcome: :25 Discharge ordered by . ms3 09:44 Discharged to home ambulatory, db 09:44 Condition: stable 09:44 Discharge instructions given to patient, Instructed on discharge instructions, Prescriptions given X 1, 09:46 Patient left the ED. db Signatures: Desire Hawthorne rg4 Mamta Graham RN RN ll1 Jose Francisco Wheeler DO DO ms3 Yaa Alvarez, RN RN db
[2023-08-23 09:55] VITALS: TEMP 98.4
[2023-08-23 10:23] VITALS: BP 141/86; O2SAT 98
== END ==
LOC: ER 07:15
DX: R11.2 Nausea with vomiting, unspecified (principal); R19.7 Diarrhea, unspecified; Z11.52 Encounter for screening for COVID-19; Z88.0 Allergy status to penicillin
CPT/HCPCS: 36415; 87804 ×2; 87811; Q0162

== ENCOUNTER → 2023-09-08 | Emergency (ER) | payer OTHER ==
[~2023-09-08] MED LIST changes: +ASPIRIN 81 MG CHEWABLE TABLET ONE; -MORPHINE 4 MG/ML SYR ONE; -ONDANSETRON 4 MG (ODT) TAB ONE
--- OUTSIDE RECORDS SUMMARY | 2023-09-08 17:39 | XMS REPORT | Continuity of Care Document ---
Author Name Unknown Address [address] [facility] [address] [place] [id number] [facility] thconnect Address [address] [facility] [address] [place] [address] Care Team Providers Care Refueler Name Role Phone PCP, PATIENT DOES NOT HAVE A Primary Care Physic josh Unavailable KO GUILLAUME Attending Clinician Unavailable Ko Guillaume DO Attending Clinician KO GUILLAUME Admitting Clinician Unavailable Allergies, Adverse Reactions, Alerts Allergy Name Allergy Type Status Severity Reaction(s) Onset Date Inactive Date Treating Clinician Comments Source NO KNOWN ALLERGIE S Drug Class Active [facility] Social History Social Habit Start Date Stop Date Quantity Comments Source Sexual orientation U [facility] Sex Assigned At 1985 00:00:00 1985 00:00:00 [facility] Smoking Status Start Date Stop Date Source Tobacco smoking consumption unknown [facility] Medications Ordered Medication Name Filled Medication Name Start Date Stop Date Current Medication? Ordering Clinician Indication Dosage Frequency Signature (SIG) Comments Components Source dexamethaso ne (DECADRON PHOSPHATE) injection 10 mg 2022-07 19:30: 00 06-07 18:29 :00 No 10mg 10 mg, Oral, ONCE, 1 dose, On Tue06/07/23 at 1330, Routine [facility] methylPREDN ISolone (MEDROL, COLIN,) 4 mg tablets 2022-07 00:00: 00 Yes [id number] Take by mouth SEE-INSTRU CTIONS. follow package directions [facility] benzonatate 100 mg capsule 2022-07 00:00: 00 Yes [id number] 100mg Take 1 capsule by mouth 3 (three) times daily as needed for Cough. [facility] Vital Signs Vital Name Observation Time Observation Value Comments S elvin Systolic blood pressure 2023-06-07 18:12:00 113 mm[Hg] [facility] Diastolic blood pressure 2023-06-07 18:12:00 98 mm[Hg] [facility] Heart rate 2023-06-07 18:12:00 75 /min [facility] Body temperature 2023-06-07 18:12:00 36.61 Yari [facility] Respiratory rate 2023-06-07 18:12:00 14 /min [facility] Body height 2023-06-07 18:12:00 177.8 cm [facility] Body weight 2023-06-07 18:12:00 108.863 kg [facility] BMI 2023-06-07 18:12:00 34.44 kg/m2 [facility] Oxygen saturation in Arterial blood by Pulse oximetry 2023-06-07 18:12:00 100 /min [facility] Procedures Procedure Date / Time Performed Performing Clinicia n Source ASSIGNMENT OF BENEFITS 2023-06-07 20:25:00 Docto r Unassigned, [facility] NOTICE OF PRIVACY PRACTICES 2023-06-07 20:24:45 Doctor Unassigned, [facility] XR CHEST 1 VW 2023-06-07 20:16:56 Ko Guillaume [facility] RAPID INFLUENZA A/B 2023-06-07 18:27:00 Hamida Guillaume [facility] COVID-19 (ID NOW RAPID TESTING) 2023-06-07 18:27:00 Ko Guillaume [facility] CONSENT/REFUSAL FOR DIAGNOSIS AND TREATMENT 2023-06-07 17:57:37 Doctor Unassigned, [facility] Encounters Start Date/Time End Date/Time Encounter Type Admission Type Attending Clinicians Care Facility Care Department Encounter ID Source 2023-06-07 12:17:00 2023-06-07 14:48:00 Emergency X KO GUILLAUME [facility] ERT [id number] [facility] 2023-06-07 12:17:00 2023-06-07 14:48:00 Emergency Ko Guillaume [facility] [id number] [facility]
--- NOTE | 2023-09-08 18:18 | RAD REPORT ---
EXAM DESCRIPTION: RADChest Single View09/08/2023 6:08 pm CLINICAL HISTORY: CHEST PAIN COMPARISON: Chest Single View dated 07/28/2023; Chest Single View dated 05/17/2023; Chest Pa And Lat (2 Views) dated 05/15/2023; Chest Single View dated 04/18/2023 TECHNIQUE: Portable AP view of the chest. FINDINGS: The lungs are clear. No pneumothorax or effusion. The cardiomediastinal contours are unre markable. IMPRESSION: No acute cardiopulmonary process.
[2023-09-08 18:34] LABS: Absolute Lymphocytes (CBC) 2.6 K/uL (0.7-4.9); Basophils % 0.5 % (0-1.3); Hematocrit 36.6 % (39.6-49.0); Lymphocytes % 36.9 % (15.3-44.8); MCV 73.6 fL (80-100); MPV 7.1 fL (7.6-11.3); Platelets 257 thou/uL (152-406); RBC Red Blood Cell Count 4.97 M/uL (4.33-5.43)
[2023-09-08 18:49] LABS: Anion Gap 7.6 mEq/L (5.0-15.0); Potassium 3.6 mEq/L (3.5-5.1); Troponin High Sensitivity 5.2 pg/mL (<58.9)
--- NOTE | 2023-09-08 20:20 | EDPHYS ---
Physician Documentation [facility] Name: Holden Morris Age: 38 yrs Sex: Male : 1985 Arrival Date: 09/08/2023 Time: 17:36 Bed 7 Private MD: ED Physician Jose Francisco Wheeler HPI: 09/07 17:49 This 38 yrs old Black Male presents to ER via Ambulatory with complaints of Chest Pain. ms3 17:49 38-year-old male with past medical history of GERD, anxiety, autoimmune disease, ms3 hypertension presents to the emergency department for left-sided chest pain that began 2 hours prior to arrival. Patient rates his pain a 9/10. Patient denies any alleviating or inciting factors. Patient denies nausea, vomiting, shortness of breath, radiation of his pain. Historical: - Allergies: 17:46 PENICILLINS; young; kd3 - PMHx: 17:46 SHAY; Anxiety; Asthma; Asthma; autoimmune disease; autoimmune disease; GERD; GERD; kd3 Hypertension; Resolved; Hypertension; Resolved; Migraines; - PSHx: 17:46 Cornea transplant L eye; kd3 - Immunization history:: Adult Immunizations up to date. - Social history:: Smoking status: unknown. ROS: 17:49 Constitutional: Negative for fever, and chills. Neck: Negative for injury, pain, and ms3 swelling, 17:49 Respiratory: Negative for shortness of breath, cough, wheezing, and pleuritic chest pain, Abdomen/GI: Negative for abdominal pain, nausea, vomiting, diarrhea, and constipation, MS/Extremity: Negative for injury and deformity, Skin: Negative for injury, rash, and discoloration, 17:49 Cardiovascular: Positive for chest pain, 17:49 All other systems are negative, Exam: 17:49 Constitutional: This is a well developed, well nourished patient who is awake, alert, ms3 and in no acute distress. Head/Face: Normocephalic, atraumatic. Neck: Trachea midline, no cervical lymphadenopathy. Supple, full range of motion without nuchal rigidity, or vertebral point tenderness. No Meningismus. Chest/axilla: Normal chest wall appearance and motion. Nontender with no deformity. Cardiovascular: Regular rate and rhythm with a normal S1 and S2. No gallops, murmurs, or rubs. Normal PMI, no JVD. No pulse deficits. Respiratory: Lungs have equal breath sounds bilaterally, clear to auscultation and percussion. No rales, rhonchi or wheezes noted. No increased work of breathing, no retractions or nasal flaring. Abdomen/GI: Soft, non-tender, with normal bowel sounds. No distension or tympany. No guarding or rebound. No evidence of tenderness throughout. Skin: Warm, dry with normal turgor. Normal color with no rashes, no lesions, and no evidence of cellulitis. MS/ Extremity: Pulses equal, no cyanosis. Neurovascular intact. Full, normal range of motion. 17:54 ECG was reviewed by the Attending Physician. ms3 Vital Signs: 17:53 BP 144 / 80; Pulse 84; Resp 16; Temp 98.2(TE); Pulse Ox 98% ; Weight 111.13 kg; Height kd3 5 ft. 10 in. ; Pain 9/10; 19:00 BP 131 / 78; Pulse 81; Resp 18; Pulse Ox 96% ; nj1 20:12 BP 145 / 76; Pulse 76; Resp 15; Pulse Ox 94% on R/A; Pain 0/10; tm6 20:27 BP 145 / 76; Pulse 89; Resp 14; Temp 97.3(TE); Pulse Ox 95% on R/A; Pain 0/10; tm6 17:53 Body Mass Index 35.15 (111.13 kg, 177.8 cm) kd3 17:53 Pain Scale: Adult kd3 20:12 Pain Scale: Adult tm6 20:27 Pain Scale: Adult tm6 MDM: 17:49 Differential diagnosis: abnormal EKG, acute myocardial infarction, coronary artery ms3 disease chest wall pain. 17:50 Patient medically screened. ms3 20:21 HEART Score: History: Slightly Suspicious (0), ECG: Normal (0), Age: < or = 45 years ms3 (0), Risk Factors: No Risk Factors Known (0), Troponin: < or = 1 x Normal Limit (0), Total Score = 0. Data reviewed: vital signs, nurses notes, lab test result(s), EKG, radiologic studies, and as a result, I will discharge patient. I considered the following discharge prescriptions or medication management in the emergency department Medications were administered in the Emergency Department. See MAR. Independent interpretation of the following test(s) in the Emergency Department EKG: See my EKG interpretation above. Counseling: I had a detailed discussion with the patient and/or guardian regarding the historical points, exam findings, and any diagnostic results supporting the discharge/admit diagnosis, lab results, radiology results, the need for outpatient follow up, to return to the emergency department if symptoms worsen or persist or if there are any questions or concerns that arise at home. Special discussion: Based on the patient's history, exam, and Dx evaluation, there is no indication for emergent intervention or inpatient Tx. It is understood by the patient/guardian that if the Sx's persist or worsen they need to return immediately for re-evaluation. ED course: Discussed negative troponin x 2, labs, chest x-ray, EKG with patient. Patient to follow-up with Dr. Victoria in 2 to 3 days. Patient understands and agrees to plan. All questions were answered. Return precautions discussed include worsening symptoms, or any other concerns. On reevaluation patient is improved, alert and orient x 4, no apparent distress, nontoxic-appearing, speaking full sentences. 09/07 17:45 Order name: Basic Metabolic Panel; Complete Time: 18:53 ms3 09/07 17:45 Order name: CBC with Diff; Complete Time: 18:53 ms3 09/07 17:45 Order name: Magnesium; Complete Time: 18:53 ms3 09/07 17:45 Order name: Troponin HS; Complete Time: 18:53 ms3 09/07 19:29 Order name: Troponin High Sensitivity; Complete Time: 20:19 ms3 09/07 17:45 Order name: XRAY Chest (1 view); Complete Time: 18:24 ms3 09/07 17:45 Order name: EKG; Complete Time: 17:45 ms3 09/07 17:45 Order name: Cardiac monitoring; Complete Time: 18:14 ms3 09/07 17:45 Order name: EKG - Nurse/Tech; Complete Time: 17:48 ms3 09/07 17:45 Order name: IV Saline Lock; Complete Time: 18:29 ms3 09/07 17:45 Order name: Labs collected and sent; Complete Time: 18:29 ms3 09/07 17:45 Order name: O2 Per Protocol; Complete Time: 18:14 ms3 09/07 17:45 Order name: O2 Sat Monitoring; Complete Time: 18:14 ms3 EC:54 Rate is 83 beats/min. Rhythm is regular. QRS [place] is Normal. [place] interval is normal. QRS ms3 interval is normal. Clinical impression: NSR w/ Non-specific ST/T Changes. Interpreted by me. Reviewed by me. Administered Medications: 18:10 Drug: Aspirin PO Chewable Tablet 324 mg PO once; 81 mg tablets x 4 Route: PO; nj1 Disposition Summary: 09/08/23 20:19 Discharge Ordered Notes: Location: Home ms3 Condition: Stable ms3 Diagnosis - Chest pain, unspecified ms3 Followup: ms3 - With: Silvano Victoria MD - When: 2 - 3 days - Reason: Recheck today's complaints Discharge Instructions: - Discharge Summary Sheet ms3 - Nonspecific Chest Pain, Adult ms3 Forms: - Medication Reconciliation Form ms3 - Thank You Letter ms3 - Antibiotic Education ms3 - Prescription Opioid Use ms3 - Patient Portal Instructions ms3 - Leadership Thank You Letter ms3 Signatures: Dispatcher [employer] EDJose Francisco Jacinto DO DO ms3 Shae Vega, RN RN kd3 Janet Thomson RN RN nj1
--- NOTE | 2023-09-08 20:20 | ER ---
Nurse's Notes [facility] [place] Name: Holden Morris Age: 38 yrs Sex: Male : 1985 Arrival Date: 09/08/2023 Time: 17:36 Bed 7 Private MD: Diagnosis: Chest pain, unspecified Presentation: 09/07 17:43 Chief complaint: Patient states: I have been having stomach pain for two weeks now but kd3 today it got worse when i bent over today at work. Then my chest started hurting. I had blood work done on Tuesday and for 3 months my HG A1C had been high. there is no way my sugar has been high. I have not been dizzy and have not fainted at all. Coronavirus screen: Vaccine status: unknown. Ebola Screen: No symptoms or risks identified at this time. Initial Sepsis Screen: Does the patient meet any 2 criteria? No. Patient's initial sepsis screen is negative. Does the patient have a suspected source of infection? No. Patient's initial sepsis screen is negative. Risk Assessment: Do you want to hurt yourself or someone else? Patient reports no desire to harm self or others. Onset of symptoms was September 08, 2023. 17:43 Method Of Arrival: Ambulatory kd3 17:43 Acuity: STONE 3 kd3 Triage Assessment: 17:46 General: Appears in no apparent distress. Behavior is calm, cooperative. Pain: kd3 Complains of pain in chest and abdomen. GI: Abdomen is non-distended, obese. Historical: - Allergies: 17:46 PENICILLINS; young; kd3 - PMHx: 17:46 SHAY; Anxiety; Asthma; Asthma; autoimmune disease; autoimmune disease; GERD; GERD; kd3 Hypertension; Resolved; Hypertension; Resolved; Migraines; - PSHx: 17:46 Cornea transplant L eye; kd3 - Immunization history:: Adult Immunizations up to date. - Social history:: Smoking status: unknown. Screenin:16 [facility] ED Fall Risk Assessment (Adult) Score/Fall Risk Level 0 - 2 = Low Risk nj1 Oriented to surroundings, Maintained a safe environment, Hourly rounding (assess needs \T\ fall precautionary measures) done. Abuse screen: Denies threats or abuse. Denies injuries from another. Nutritional screening: No deficits noted. Tuberculosis screening: No symptoms or risk factors identified. Assessment: 18:10 General: Appears in no apparent distress. comfortable, Behavior is calm, cooperative, nj1 appropriate for age. 18:10 Pain: Complains of pain in chest Pain currently is 9 out of 10 on a pain scale. Neuro: nj1 Level of Consciousness is awake, alert, obeys commands, Oriented to person, place, time, situation. Cardiovascular: Reports chest pain, Patient's skin is warm and dry. Cardiovascular: Rhythm is sinus rhythm. Respiratory: Airway is patent Respiratory effort is even, unlabored. 20:12 Reassessment: Patient appears in no apparent distress at this time. Patient and/or tm6 family updated on plan of care and expected duration. Pain level reassessed. Patient is alert, oriented x 3, equal unlabored respirations, skin warm/dry/pink. 20:27 Reassessment: Patient and/or family updated on plan of care and expected duration. Pain tm6 level reassessed. Patient is alert, oriented x 3, equal unlabored respirations, skin warm/dry/pink. 20:28 GI: Bowel sounds present X 4 quads. Abd is soft and non tender X 4 quads. tm6 Vital Signs: 17:53 BP 144 / 80; Pulse 84; Resp 16; Temp 98.2(TE); Pulse Ox 98% ; Weight 111.13 kg; Height kd3 5 ft. 10 in. ; Pain 9/10; 19:00 BP 131 / 78; Pulse 81; Resp 18; Pulse Ox 96% ; nj1 20:12 BP 145 / 76; Pulse 76; Resp 15; Pulse Ox 94% on R/A; Pain 0/10; tm6 20:27 BP 145 / 76; Pulse 89; Resp 14; Temp 97.3(TE); Pulse Ox 95% on R/A; Pain 0/10; tm6 17:53 Body Mass Index 35.15 (111.13 kg, 177.8 cm) kd3 17:53 Pain Scale: Adult kd3 20:12 Pain Scale: Adult tm6 20:27 Pain Scale: Adult tm6 ED Course: 17:38 Patient arrived in ED. mg5 17:44 Jose Francisco Wheeler DO is Attending Physician. ms3 17:46 Triage completed. kd3 17:46 Arm band placed on left wrist. kd3 18:03 Janet Thomson, RN is Primary Nurse. nj1 18:10 XRAY Chest (1 view) In Process Unspecified. EDMS 18:17 Patient has correct armband on for positive identification. Bed in low position. Call nj1 light in reach. Provided Education on: call light, fall precautions. 19:00 Report given to Sameera CAMARENA and RACHEL CAMARENA. nj1 19:31 Door closed. Noise minimized. Lights dimmed. Warm blanket given. PO fluids given. tm6 19:45 Troponin High Sensitivity Sent. tm6 20:06 Attending Physician role handed off by Jose Francisco Wheeler DO sp4 20:06 Arthur Gomez MD is Attending Physician. sp4 20:19 Jose Francisco Wheeler DO is Attending Physician. ms3 20:19 Silvano Victoria MD is Referral Physician. ms3 20:28 No provider procedures requiring assistance completed. IV discontinued, intact, tm6 bleeding controlled, No redness/swelling at site. Pressure dressing applied. Administered Medications: 18:10 Drug: Aspirin PO Chewable Tablet 324 mg PO once; 81 mg tablets x 4 Route: PO; nj1 Medication: 20:29 VIS not applicable for this client. tm6 Outcome: 20:19 Discharge ordered by . ms3 20:28 Discharged to home ambulatory, tm6 20:28 Condition: stable 20:28 Discharge instructions given to patient, Instructed on discharge instructions, follow up and referral plans. Demonstrated understanding of instructions, follow-up care, 20:29 Patient left the ED. tm6 Signatures: Dispatcher [employer] EDMS Jose Francisco Wheeler DO DO ms3 Shae Vega RN RN 3 Arthur Gomez MD MD sp4 Janet Thomson RN RN nj1 [facility] Sameera Mc, RN RN tm6
[2023-09-08 21:09] VITALS: BP 145/76; TEMP 97.3; O2SAT 95
== END ==
LOC: ER 17:36
DX: R07.89 Other chest pain (principal); I10 Essential (primary) hypertension; F41.9 Anxiety disorder, unspecified; N17.9 Acute kidney failure, unspecified; Z88.0 Allergy status to penicillin
CPT/HCPCS: 36415; 71045; 80048; 83735; 84484; 85025; 93005; 99284

== ENCOUNTER 2023-09-29 04:17 | Emergency (ER) | payer SELFPAY ==
--- OUTSIDE RECORDS SUMMARY | 2023-09-29 04:20 | XMS REPORT | Continuity of Care Document ---
Author Name Unknown Address [address] [facility] th[address] Address [address] [facility] [place] [address] Care Team Providers Care Editor Dictionary Name Role Phone PCP, PATIENT DOES NOT HAVE A Primary Care Physic josh Unavailable KO HENDRIX Attending Clinician Unavailable Ko Hendrix DO Attending Clinician KO HENDRIX Admitting Clinician Unavailable Allergies, Adverse Reactions, Alerts Allergy Name Allergy Type Status Severity Reaction(s) Onset Date Inactive Date Treating Clinician Comments Source NO KNOWN ALLERGIE S Drug Class Active [facility] Social History Social Habit Start Date Stop Date Quantity Comments Source Sexual orientation U [facility] Sex Assigned At 1985 00:00:00 1985 00:00:00 [facility] Smoking Status Start Date Stop Date Source Tobacco smoking consumption unknown [facility] Medications Ordered Medication Name Filled Medication Name Start Date Stop Date Current Medication? Ordering Clinician Indication Dosage Frequency Signature (SIG) Comments Components Source dexamethaso ne (DECADRON PHOSPHATE) injection 10 mg 2022-07 19:30: 00 06-07 18:29 :00 No 10mg 10 mg, Oral, ONCE, 1 dose, On Tue06/07/23 at 1330, Routine [facility] methylPREDN ISolone (MEDROL, COLIN,) 4 mg tablets 2022-07 00:00: 00 Yes [id number] Take by mouth SEE-INSTRU CTIONS. follow package directions [facility] benzonatate 100 mg capsule 2022-07 00:00: 00 Yes [id number] 100mg Take 1 capsule by mouth 3 (three) times daily as needed for Cough. [facility] Vital Signs Vital Name Observation Time Observation Value Comments S elvin Systolic blood pressure 2023-06-07 18:12:00 113 mm[Hg] [facility] Diastolic blood pressure 2023-06-07 18:12:00 98 mm[Hg] [facility] Heart rate 2023-06-07 18:12:00 75 /min [facility] Body temperature 2023-06-07 18:12:00 36.61 Yari [facility] Respiratory rate 2023-06-07 18:12:00 14 /min [facility] Body height 2023-06-07 18:12:00 177.8 cm [facility] Body weight 2023-06-07 18:12:00 108.863 kg [facility] BMI 2023-06-07 18:12:00 34.44 kg/m2 [facility] Oxygen saturation in Arterial blood by Pulse oximetry 2023-06-07 18:12:00 100 /min [facility] Procedures Procedure Date / Time Performed Performing Clinicia n Source ASSIGNMENT OF BENEFITS 2023-06-07 20:25:00 Docto r Unassigned, [place] [facility] NOTICE OF PRIVACY PRACTICES 2023-06-07 20:24:45 Doctor Unassigned, [place] [facility] XR CHEST 1 VW 2023-06-07 20:16:56 Ko Hendrix [facility] RAPID INFLUENZA A/B 2023-06-07 18:27:00 Hamida Hendrix [facility] COVID-19 (ID NOW RAPID TESTING) 2023-06-07 18:27:00 Ko Hendrix [facility] CONSENT/REFUSAL FOR DIAGNOSIS AND TREATMENT 2023-06-07 17:57:37 Doctor Unassigned, [place] [facility] Encounters Start Date/Time End Date/Time Encounter Type Admission Type Attending Clinicians Care Facility Care Department Encounter ID Source 2023-06-07 12:17:00 2023-06-07 14:48:00 Emergency X KO HENDRIX [facility] ERT [id number] [facility] 2023-06-07 12:17:00 2023-06-07 14:48:00 Emergency Ko Hendrix [facility] [id number] [facility]
--- NOTE | 2023-09-29 04:39 | ER ---
Nurse's Notes [facility] Name: Holden Morris Age: 38 yrs Sex: Male : 1985 Arrival Date: 09/29/2023 Time: 04:17 Bed 6 Private MD: Diagnosis: Low back pain Presentation: 09/28 04:36 Chief complaint: Patient states: Low back pressure onset 2 days ago. Pt noted to be cm10 able to ambulate with steady gait. Coronavirus screen: Client denies travel out of the [place] in the last 14 days. At this time, the client does not indicate any symptoms associated with coronavirus-19. Ebola Screen: Patient denies travel to an Ebola-affected area in the 21 days before illness onset. No symptoms or risks identified at this time. Initial Sepsis Screen: Does the patient meet any 2 criteria? No. Patient's initial sepsis screen is negative. Does the patient have a suspected source of infection? No. Patient's initial sepsis screen is negative. Risk Assessment: Do you want to hurt yourself or someone else? Patient reports no desire to harm self or others. Onset of symptoms was September 29, 2023. 04:36 Method Of Arrival: Ambulatory cm10 04:36 Acuity: STONE 4 cm10 Triage Assessment: 04:37 General: Appears in no apparent distress. comfortable, Behavior is calm, cooperative. cm10 Pain: Complains of pain in low back area Pain does not radiate. Pain currently is 10 out of 10 on a pain scale. Quality of pain is described as pressure, Pain began 2-3 days ago. Neuro: No deficits noted. Level of Consciousness is awake, alert, obeys commands, Oriented to person, place, time, situation. Respiratory: No deficits noted. Airway is patent Respiratory effort is even, unlabored, Respiratory pattern is regular, symmetrical. Historical: - Allergies: 04:38 PENICILLINS; young; cm10 - PMHx: 04:38 SHAY; Anxiety; Asthma; autoimmune disease; GERD; Hypertension; Resolved; Migraines; cm10 - PSHx: 04:38 Cornea transplant L eye; cm10 - Immunization history:: Adult Immunizations up to date. - Social history:: Smoking status: Patient denies any tobacco usage or history of. - Family history:: not pertinent. Screenin:38 [facility] ED Fall Risk Assessment (Adult) History of falling in the last 3 months, cm10 including since admission No falls in past 3 months (0 pts) Confusion or Disorientation No (0 pts) Intoxicated or Sedated No (0 pts) Impaired Gait No (0 pts) Mobility Assist Device Used No (0 pt) Altered Elimination No (0 pt) Score/Fall Risk Level 0 - 2 = Low Risk Oriented to surroundings, Maintained a safe environment, Hourly rounding (assess needs \T\ fall precautionary measures) done. Abuse screen: Denies threats or abuse. Denies injuries from another. Nutritional screening: No deficits noted. Tuberculosis screening: No symptoms or risk factors identified. Assessment: 04:37 General: Appears in no apparent distress. Behavior is calm, cooperative. Pain: tm6 Complains of pain in lumbar area, left low back and right low back Pain currently is 9 out of 10 on a pain scale. Quality of pain is described as pressure. Neuro: Level of Consciousness is awake, alert, obeys commands, Oriented to person, place, time, situation. Cardiovascular: Capillary refill < 3 seconds Patient's skin is warm and dry. Respiratory: Airway is patent Respiratory effort is even, unlabored, Respiratory pattern is regular, symmetrical. GI: Abdomen is flat, non-distended, Bowel sounds present X 4 quads. Abd is soft and non tender Reports nausea, vomiting. : No signs and/or symptoms were reported regarding the genitourinary system. EENT: No signs and/or symptoms were reported regarding the EENT system. Derm: No signs and/or symptoms reported regarding the dermatologic system. Musculoskeletal: Reports pain in low back area Pain is 9 out of 10 on a pain scale. 04:56 Reassessment: stated it was ok for patient to drive home after taking methocarbamol. tm6 Patient stated he was going to sleep in the lobby for a while before going home. Vital Signs: 04:36 BP 145 / 89; Pulse 72; Resp 16; Temp 97.9(O); Pulse Ox 99% on R/A; Weight 105.2 kg; cm10 Pain 10/10; 04:53 BP 127 / 67; Pulse 67; Resp 19; Temp 97.5(TE); Pulse Ox 100% ; Pain 9/10; tm6 04:36 Pain Scale: Adult cm10 04:53 Pain Scale: Adult tm6 ED Course: 04:20 Patient arrived in ED. jj6 04:21 Arthur Gomez MD is Attending Physician. sp4 04:25 Sameera Mc, RN is Primary Nurse. tm6 04:37 Triage completed. cm10 04:37 Client placed on continuous cardiac and pulse oximetry monitoring. NIBP monitoring tm6 applied. Pulse ox on. NIBP on. Door closed. Noise minimized. Lights dimmed. 04:38 Arm band placed on Patient placed in an exam room, on a stretcher. cm10 04:38 Patient has correct armband on for positive identification. Bed in low position. Call cm10 light in reach. Provided Education on: ER process and procedures.. 04:38 No provider procedures requiring assistance completed. Patient did not have IV access cm10 during this emergency room visit. Administered Medications: 04:53 Drug: Ketorolac IM 60 mg IM once Route: IM; Site: Other; tm6 04:53 Drug: Methocarbamol PO 1500 mg PO once Route: PO; tm6 Medication: 04:38 VIS not applicable for this client. cm10 Outcome: 04:39 Discharge ordered by . sp4 04:53 Discharged to home ambulatory, tm6 04:53 Condition: stable 04:53 Discharge instructions given to patient, Instructed on discharge instructions, follow up and referral plans. Demonstrated understanding of instructions, follow-up care, 04:54 Patient left the ED. tm6 Signatures: Priscila Argueta jj6 Arthur Gomez MD MD sp4 Vandana Oliver RN RN cm10 Sameera Mc, NICOL RN tm6
--- NOTE | 2023-09-29 04:39 | EDPHYS ---
Physician Documentation [facility] Name: Holden Morris Age: 38 yrs Sex: Male : 1985 Arrival Date: 09/29/2023 Time: 04:17 Bed 6 Private MD: ED Physician Arthur Gomez HPI: 09/28 04:22 This 38 yrs old Black Male presents to ER via Unassigned with complaints of Abdominal sp4 Pain, Back Pain, Nausea. 04:23 Allergies: PENICILLINS; young; PMHx: SHAY; Anxiety; Asthma; Asthma; autoimmune disease; sp4 autoimmune disease; GERD; GERD; Hypertension; Resolved; Hypertension; Resolved; Migraines PSHx: Cornea transplant L eye; . 04:35 Patient presents with complaint of acute lower back pain starting 2 days ago. Patient sp4 states he took Tylenol at home. Patient is ambulatory on arrival. Historical: - Allergies: 04:38 PENICILLINS; young; cm10 - PMHx: 04:38 SHAY; Anxiety; Asthma; autoimmune disease; GERD; Hypertension; Resolved; Migraines; cm10 - PSHx: 04:38 Cornea transplant L eye; cm10 - Immunization history:: Adult Immunizations up to date. - Social history:: Smoking status: Patient denies any tobacco usage or history of. - Family history:: not pertinent. ROS: 04:35 Constitutional: Negative for fever, chills, and weight loss, positive back pain sp4 04:35 All other systems are negative, Exam: 04:35 Constitutional: This is a well developed, well nourished patient who is awake, alert, sp4 and in no acute distress. Head/Face: Normocephalic, atraumatic. Eyes: Pupils equal round and reactive to light, extra-ocular motions intact. Lids and lashes normal. Conjunctiva and sclera are not injected. Cornea within normal limits. Periorbital areas with no swelling, redness, or edema. ENT: Nares patent. No nasal discharge, no septal abnormalities noted. Tympanic membranes are normal and external auditory canals are clear. Oropharynx with no redness, swelling, or masses, exudates, or evidence of obstruction, uvula midline. Mucous membranes moist. Neck: Trachea midline, no thyromegaly or masses palpated, and no cervical lymphadenopathy. Supple, full range of motion without nuchal rigidity, or vertebral point tenderness. Chest/axilla: Normal chest wall appearance and motion. Nontender with no deformity. No lesions are appreciated. Cardiovascular: Regular rate and rhythm with a normal S1 and S2. No gallops, murmurs, or rubs. Normal PMI, no JVD. No pulse deficits. Respiratory: Lungs have equal breath sounds bilaterally, clear to auscultation and percussion. No rales, rhonchi or wheezes noted. No increased work of breathing, no retractions or nasal flaring. Abdomen/GI: Soft, with normal bowel sounds. No distension or tympany. No guarding or rebound. No evidence of tenderness throughout. Back: No spinal tenderness. No costovertebral tenderness. Skin: Warm, dry with normal turgor. Normal color with no rashes, no lesions, and no evidence of cellulitis. MS/ Extremity: Pulses equal, no cyanosis. Neurovascular intact. Full, normal range of motion. Neuro: Awake and alert, GCS 15, oriented to person, place, time, and situation. Cranial nerves II-XII grossly intact. Motor strength 5/5 in all extremities. Sensory grossly intact. Psych: Awake, alert, with orientation to person, place and time. Behavior, mood, and affect are within normal limits Vital Signs: 04:36 BP 145 / 89; Pulse 72; Resp 16; Temp 97.9(O); Pulse Ox 99% on R/A; Weight 105.2 kg; cm10 Pain 10/10; 04:53 BP 127 / 67; Pulse 67; Resp 19; Temp 97.5(TE); Pulse Ox 100% ; Pain 9/10; tm6 04:36 Pain Scale: Adult cm10 04:53 Pain Scale: Adult tm6 MDM: 04:31 Patient medically screened. sp4 04:37 Differential diagnosis: Fatigue Osteoarthritis sprain. Data reviewed: vital signs, sp4 nurses notes, old medical records. ED course: CT report from 04/07/2023 no signs of spinal problems, no acute intra-abdominal problem. . ED course: Pain medications were provided. Patient has no sign of neurologic compromise on exam. Patient has normal gait. Patient stable for discharge home with advised as needed ibuprofen and Tylenol at home [id number]. Administered Medications: 04:53 Drug: Ketorolac IM 60 mg IM once Route: IM; Site: Other; tm6 04:53 Drug: Methocarbamol PO 1500 mg PO once Route: PO; tm6 Disposition Summary: 09/29/23 04:39 Discharge Ordered Notes: Location: Home sp4 Problem: new sp4 Symptoms: have improved sp4 Condition: Stable sp4 Diagnosis - Low back pain sp4 Followup: sp4 - With: Private Physician - When: 7 - 10 days - Reason: Recheck today's complaints Discharge Instructions: - Discharge Summary Sheet sp4 - Acute Back Pain, Adult sp4 Signatures: Arthur Gomez MD MD sp4 Vandana Oliver RN RN cm10 Sameera Mc RN RN tm6
[2023-09-29] MEDS ORDERED: KETOROLAC 30 MG/ML INJ ONE (04:42)
[2023-09-29] MEDS ORDERED: methocarbamoL 750 MG TAB ONE (04:42)
[2023-09-29 05:16] VITALS: BP 127/67; TEMP 97.5; O2SAT 100
== END 2023-09-29 04:54 | disposition home or self-care (01) ==
LOC: ER 04:17
DX: M54.50 Low back pain, unspecified (principal)
CPT/HCPCS: 96372; 99284

== ENCOUNTER 2023-09-30 02:58 | Emergency (ER) | payer SELFPAY ==
--- OUTSIDE RECORDS SUMMARY | 2023-09-30 03:01 | XMS REPORT | Continuity of Care Document ---
Author Name Unknown Address [address] [facility] th[address] Address [address] 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 Social History Social Habit Start Date Stop Date Quantity Comments Source Sexual orientation U [facility] Sex Assigned At 1985 00:00:00 1985 00:00:00 [facility] Smoking Status Start Date Stop Date Source Tobacco smoking consumption unknown [facility] Medications Ordered Medication Name Filled Medication Name Start Date Stop Date Current Medication? Ordering Clinician Indication Dosage Frequency Signature (SIG) Comments Components Source dexamethaso ne (DECADRON PHOSPHATE) injection 10 mg 2022-07 19:30: 00 06-07 18:29 :00 No 10mg 10 mg, Oral, ONCE, 1 dose, On Tue06/07/23 at 1330, Routine [facility] methylPREDN ISolone (MEDROL, COLIN,) 4 mg tablets 2022-07 00:00: 00 Yes [id number] Take by mouth SEE-INSTRU CTIONS. follow package directions [facility] benzonatate 100 mg capsule 2022-07 00:00: 00 Yes [id number] 100mg Take 1 capsule by mouth 3 (three) times daily as needed for Cough. [facility] Vital Signs Vital Name Observation Time Observation Value Comments S elvin Systolic blood pressure 2023-06-07 18:12:00 113 mm[Hg] [facility] Diastolic blood pressure 2023-06-07 18:12:00 98 mm[Hg] [facility] Heart rate 2023-06-07 18:12:00 75 /[facility] Body temperature 2023-06-07 18:12:00 36.61 Yari [facility] Respiratory rate 2023-06-07 18:12:00 14 /min [facility] Body height 2023-06-07 18:12:00 177.8 cm [facility] Body weight 2023-06-07 18:12:00 108.863 kg [facility] BMI 2023-06-07 18:12:00 34.44 kg/m2 [facility] Oxygen saturation in Arterial blood by Pulse oximetry 2023-06-07 18:12:00 100 /min [facility] Procedures Procedure Date / Time Performed Performing Clinicia n Source ASSIGNMENT OF BENEFITS 2023-06-07 20:25:00 Docto r Unassigned, Fouke [facility] NOTICE OF PRIVACY PRACTICES 2023-06-07 20:24:45 Doctor Unassigned, [facility] XR CHEST 1 VW 2023-06-07 20:16:56 Ko Hendrix [facility] RAPID INFLUENZA A/B 2023-06-07 18:27:00 Hamida Hendrix [facility] COVID-19 (ID NOW RAPID TESTING) 2023-06-07 18:27:00 Ko Hendrix [facility] CONSENT/REFUSAL FOR DIAGNOSIS AND TREATMENT 2023-06-07 17:57:37 Doctor Unassigned, [facility] Encounters Start Date/Time End Date/Time Encounter Type Admission Type Attending Clinicians Care Facility Care Department Encounter ID Source 2023-06-07 12:17:00 2023-06-07 14:48:00 Emergency X KO HENDRIX [facility] ERT [id number] [facility] 2023-06-07 12:17:00 2023-06-07 14:48:00 Emergency Ko Hendrix [facility] [id number] [facility]
--- NOTE | 2023-09-30 03:43 | ER ---
Nurse's Notes [facility] Name: Holden Morris Age: 38 yrs Sex: Male : 1985 Arrival Date: 09/30/2023 Time: 02:58 Bed 5 Private MD: Diagnosis: Abdominal pain, Generalized Presentation: 09/29 03:06 Chief complaint: Patient states: lower abdominal pain of 10 with nausea and pf1 vomiting,onset yesterday. Patient stated was seen here in the ER yesterday AM for back pain. 03:06 Coronavirus screen: Vaccine status: Patient reports receiving the 2nd dose of the covid pf1 vaccine. Moderna Client denies travel out of the [place] in the last 14 days. At this time, the client does not indicate any symptoms associated with coronavirus-19. Ebola Screen: Patient negative for fever greater than or equal to 101.5 degrees Fahrenheit, and additional compatible Ebola Virus Disease symptoms. 03:06 Method Of Arrival: Ambulatory pf1 03:06 Acuity: STONE 3 pf1 03:17 Initial Sepsis Screen: Does the patient meet any 2 criteria? No. Patient's initial ha1 sepsis screen is negative. Does the patient have a suspected source of infection? No. Patient's initial sepsis screen is negative. Risk Assessment: Do you want to hurt yourself or someone else? Patient reports no desire to harm self or others. Onset of symptoms was September 27, 2023. Triage Assessment: 03:06 General: Appears in no apparent distress. comfortable, well groomed, well developed, pf1 Behavior is calm, cooperative, appropriate for age, quiet. 03:06 GI: Abdomen is round non-distended, Reports lower abdominal pain, nausea, Pain is 10 pf1 out of 10 on a pain scale. vomiting, since yesterday. Historical: - Allergies: 03:36 PENICILLINS; young; pf1 - PMHx: 03:36 SHAY; Anxiety; Asthma; autoimmune disease; GERD; Hypertension; Resolved; Migraines; pf1 - PSHx: 03:36 Cornea transplant L eye; pf1 - Immunization history:: Adult Immunizations up to date, Client reports receiving the 2nd dose of the Covid vaccine, Moderna Last tetanus immunization: < 5 years ago Flu vaccine is not up to date. - Social history:: Smoking status: Patient denies any tobacco usage or history of. Patient/guardian denies using alcohol, street drugs. - Family history:: not pertinent. Screenin:16 [facility] ED Fall Risk Assessment (Adult) History of falling in the last 3 months, ha1 including since admission No falls in past 3 months (0 pts) Confusion or Disorientation No (0 pts) Intoxicated or Sedated Yes (3 pts) Impaired Gait No (0 pts) Mobility Assist Device Used No (0 pt) Altered Elimination No (0 pt) Score/Fall Risk Level 0 - 2 = Low Risk Oriented to surroundings, Maintained a safe environment, Educated pt \T\ family on fall prevention, incl call for assistance when getting out of bed. Abuse screen: Denies threats or abuse. Denies injuries from another. Nutritional screening: No deficits noted. Tuberculosis screening: No symptoms or risk factors identified. Assessment: 03:06 General: Appears uncomfortable, Behavior is cooperative. Pain: Complains of pain in ha1 pelvis Pain does not radiate. Pain currently is 10 out of 10 on a pain scale. Quality of pain is described as crampy, throbbing, Pain began 2-3 days ago. Neuro: Level of Consciousness is awake, alert, obeys commands, Oriented to person, place, time, situation. Cardiovascular: Capillary refill < 3 seconds Patient's skin is warm and dry. Respiratory: Airway is patent Respiratory effort is even, unlabored, Respiratory pattern is regular, symmetrical. GI: Abdomen is round non-distended, Bowel sounds present X 4 quads. Abd is soft and non tender Reports lower abdominal pain, nausea, vomiting. Musculoskeletal: Circulation, motion, and sensation intact. Range of motion: intact in all extremities. Vital Signs: 03:05 BP 141 / 81; Pulse 78; Resp 18; Pulse Ox 98% on R/A; yb 03:06 BP 154 / 89; Pulse 76; Resp 16; Temp 97.8; Pulse Ox 99% on R/A; Weight 105.23 kg; pf1 Height 5 ft. 10 in. ; Pain 10/10; 03:45 BP 136 / 78; Pulse 74; Resp 18; Temp 98.6(O); Pulse Ox 99% on R/A; yb 03:06 Body Mass Index 33.29 (105.23 kg, 177.8 cm) pf1 03:06 Pain Scale: Adult pf1 Malina Coma Score: 03:42 Eye Response: spontaneous(4). Motor Response: obeys commands(6). Verbal Response: sp4 oriented(5). Total: 15. ED Course: 03:00 Patient arrived in ED. jj6 03:06 Arm band placed on right wrist. ha1 03:06 Patient has correct armband on for positive identification. Placed in gown. Bed in low ha1 position. Call light in reach. Side rails up X 1. 03:24 Poncho Rosales, NICOL is Primary Nurse. rv 03:34 Arthur Gomez MD is Attending Physician. sp4 03:36 Triage completed. pf1 03:42 Ronan Quesada DO is Referral Physician. sp4 03:54 No provider procedures requiring assistance completed. yb 03:55 Provided Education on: Follow up with PCP. yb 03:55 Patient did not have IV access during this emergency room visit. yb Administered Medications: No medications were administered Medication: 03:55 VIS not applicable for this client. yb Outcome: 03:42 Discharge ordered by . sp4 03:54 Discharged to home ambulatory, yb 03:54 Condition: stable 03:54 Discharge instructions given to patient, Instructed on discharge instructions, Demonstrated understanding of instructions, follow-up care, medications, 03:56 Patient left the ED. yb Signatures: Poncho Rosales, RN NICOL Priscila Argueta jj6 Monica Elliott RN RN ha1 Finley, Pamala, RN RN pf1 Potepalov, Sergey, MD MD sp4 Brown, Yolanda, RN RN yb
--- NOTE | 2023-09-30 03:43 | EDPHYS ---
Physician Documentation [facility] Name: Holden Morris Age: 38 yrs Sex: Male : 1985 Arrival Date: 09/30/2023 Time: 02:58 Bed 5 Private MD: ED Physician Arthur Gomez HPI: 09/29 03:42 This 38 yrs old Black Male presents to ER via Ambulatory with complaints of Abdominal sp4 Pain. 03:42 38-year-old male presents with diffuse abdominal pain in several parts of the abdominal sp4 wall. Patient reports lower abdominal pain and upper abdominal pain right-sided abdominal pain, left-sided abdominal pain and periumbilical pain. He denied any other associated symptoms. Patient was seen here yesterday for acute lower back pain. . Historical: - Allergies: 03:36 PENICILLINS; young; pf1 - PMHx: 03:36 SHAY; Anxiety; Asthma; autoimmune disease; GERD; Hypertension; Resolved; Migraines; pf1 - PSHx: 03:36 Cornea transplant L eye; pf1 - Immunization history:: Adult Immunizations up to date, Client reports receiving the 2nd dose of the Covid vaccine, Moderna Last tetanus immunization: < 5 years ago Flu vaccine is not up to date. - Social history:: Smoking status: Patient denies any tobacco usage or history of. Patient/guardian denies using alcohol, street drugs. - Family history:: not pertinent. ROS: 03:42 Constitutional: Negative for fever, chills, and weight loss, that of abdominal pain sp4 03:42 All other systems are negative, Exam: 03:42 Constitutional: This is a well developed, well nourished patient who is awake, alert, sp4 and in no acute distress. Head/Face: Normocephalic, atraumatic. Eyes: Pupils equal round and reactive to light, extra-ocular motions intact. Lids and lashes normal. Conjunctiva and sclera are not injected. Cornea within normal limits. Periorbital areas with no swelling, redness, or edema. ENT: Nares patent. No nasal discharge, no septal abnormalities noted. Tympanic membranes are normal and external auditory canals are clear. Oropharynx with no redness, swelling, or masses, exudates, or evidence of obstruction, uvula midline. Mucous membranes moist. Neck: Trachea midline, no thyromegaly or masses palpated, and no cervical lymphadenopathy. Supple, full range of motion without nuchal rigidity, or vertebral point tenderness. Chest/axilla: Normal chest wall appearance and motion. Nontender with no deformity. No lesions are appreciated. Cardiovascular: Regular rate and rhythm with a normal S1 and S2. No gallops, murmurs, or rubs. Normal PMI, no JVD. No pulse deficits. Respiratory: Lungs have equal breath sounds bilaterally, clear to auscultation and percussion. No rales, rhonchi or wheezes noted. No increased work of breathing, no retractions or nasal flaring. Abdomen/GI: Soft, with normal bowel sounds. No distension or tympany. No guarding or rebound. No evidence of tenderness throughout. Back: No spinal tenderness. No costovertebral tenderness. Skin: Warm, dry with normal turgor. Normal color with no rashes, no lesions, and no evidence of cellulitis. MS/ Extremity: Pulses equal, no cyanosis. Neurovascular intact. Full, normal range of motion. Neuro: Awake and alert, GCS 15, oriented to person, place, time, and situation. Cranial nerves II-XII grossly intact. Motor strength 5/5 in all extremities. Sensory grossly intact. Psych: Awake, alert, with orientation to person, place and time. Behavior, mood, and affect are within normal limits Vital Signs: 03:05 BP 141 / 81; Pulse 78; Resp 18; Pulse Ox 98% on R/A; yb 03:06 BP 154 / 89; Pulse 76; Resp 16; Temp 97.8; Pulse Ox 99% on R/A; Weight 105.23 kg; pf1 Height 5 ft. 10 in. ; Pain 10/10; 03:45 BP 136 / 78; Pulse 74; Resp 18; Temp 98.6(O); Pulse Ox 99% on R/A; yb 03:06 Body Mass Index 33.29 (105.23 kg, 177.8 cm) pf1 03:06 Pain Scale: Adult pf1 Malina Coma Score: 03:42 Eye Response: spontaneous(4). Motor Response: obeys commands(6). Verbal Response: sp4 oriented(5). Total: 15. MDM: 03:42 Patient medically screened. sp4 03:42 Differential Diagnosis Nonspecific abdominal pain. Data reviewed: vital signs, nurses sp4 notes. Data reviewed: old medical records, 80 previous emergency room visits for various complaints. ED course: Patient is stable for discharge home at this time. We do not believe patient has emergent abdominal problem. Administered Medications: No medications were administered Disposition Summary: 09/30/23 03:42 Discharge Ordered Notes: Location: Home sp4 Problem: new sp4 Symptoms: have improved sp4 Condition: Stable sp4 Diagnosis - Abdominal pain, Generalized sp4 Followup: sp4 - With: Ronan Quesada DO - When: 7 - 10 days - Reason: Recheck today's complaints Discharge Instructions: - Discharge Summary Sheet sp4 - Abdominal Pain, Adult sp4 Forms: - Patient Portal Instructions sp4 Signatures: Daisy Mosher RN RN pf1 Arthur Gmoez MD MD sp4
[2023-09-30 04:22] VITALS: BP 136/78; TEMP 98.6; O2SAT 99
== END 2023-09-30 03:56 | disposition home or self-care (01) ==
LOC: ER 02:58
DX: R10.84 Generalized abdominal pain (principal)
CPT/HCPCS: 99283

== ENCOUNTER 2023-12-30 20:05 | Emergency (ER) | payer SELFPAY ==
--- OUTSIDE RECORDS SUMMARY | 2023-12-30 20:07 | XMS REPORT | Continuity of Care Document ---
Author Name Unknown Address [address] [facility] thconnect Address [address] 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 Name Role Phone PCP, PATIENT DOES NOT HAVE A Primary Care Physic josh Unavailable KO HENDRIX Attending Clinician Unavailable Ko Hendrix DO Attending Clinician KO HENDRIX Admitting Clinician Unavailable Allergies, Adverse Reactions, Alerts Allergy Name Allergy Type Status Severity Reaction(s) Onset Date Inactive Date Treating Clinician Comments Source NO KNOWN ALLERGIE S Drug Class Active [facility] Social History Social Habit Start Date Stop Date Quantity Comments Source Sexual orientation U [facility] Sex Assigned At 1985 00:00:00 1985 00:00:00 [facility] Smoking Status Start Date Stop Date Source Tobacco smoking consumption unknown [facility] Medications Ordered Medication Name Filled Medication Name Start Date Stop Date Current Medication? Ordering Clinician Indication Dosage Frequency Signature (SIG) Comments Components Source dexamethaso ne (DECADRON PHOSPHATE) injection 10 mg 2022-07 19:30: 00 06-07 18:29 :00 No 10mg 10 mg, Oral, ONCE, 1 dose, On Tue06/07/23 at 1330, Routine [facility] methylPREDN ISolone (MEDROL, COLIN,) 4 mg tablets 2022-07 00:00: 00 Yes [id number] Take by mouth SEE-INSTRU CTIONS. follow package directions [facility] benzonatate 100 mg capsule 2022-07 00:00: 00 Yes [id number] 100mg Take 1 capsule by mouth 3 (three) times daily as needed for Cough. [facility] Vital Signs Vital Name Observation Time Observation Value Comments S elvin Systolic blood pressure 2023-06-07 18:12:00 113 mm[Hg] [facility] Diastolic blood pressure 2023-06-07 18:12:00 98 mm[Hg] [facility] Heart rate 2023-06-07 18:12:00 75 /min [facility] Body temperature 2023-06-07 18:12:00 36.61 Yari [facility] Respiratory rate 2023-06-07 18:12:00 14 /min [facility] Body height 2023-06-07 18:12:00 177.8 cm [facility] Body weight 2023-06-07 18:12:00 108.863 kg [facility] BMI 2023-06-07 18:12:00 34.44 kg/m2 [facility] Oxygen saturation in Arterial blood by Pulse oximetry 2023-06-07 18:12:00 100 /min [facility] Procedures Procedure Date / Time Performed Performing Clinicia n Source ASSIGNMENT OF BENEFITS 2023-06-07 20:25:00 Docto r Unassigned, Jacobus [facility] NOTICE OF PRIVACY PRACTICES 2023-06-07 20:24:45 Doctor Unassigned, Jacobus [facility] XR CHEST 1 VW 2023-06-07 20:16:56 Ko Hendrix [facility] RAPID INFLUENZA A/B 2023-06-07 18:27:00 Hamida Hendrix [facility] COVID-19 (ID NOW RAPID TESTING) 2023-06-07 18:27:00 Ko Hendrix [facility] CONSENT/REFUSAL FOR DIAGNOSIS AND TREATMENT 2023-06-07 17:57:37 Doctor Unassigned, Jacobus [facility] Encounters Start Date/Time End Date/Time Encounter Type Admission Type Attending Clinicians Care Facility Care Department Encounter ID Source 2023-06-07 12:17:00 2023-06-07 14:48:00 Emergency X KO HENDRIX [facility] ERT [id number] [facility] 2023-06-07 12:17:00 2023-06-07 14:48:00 Emergency Ko Hendrix [facility] [id number] [facility]
[2023-12-30] MEDS ORDERED: FENTANYL CITR 100 MCG/2 ML ONE (20:52)
[2023-12-30] MEDS ORDERED: dexAMETHasone 10 MG/ML VIAL ONE (20:54)
[2023-12-30] MEDS ORDERED: KETOROLAC 30 MG/ML INJ ONE (20:54)
[2023-12-30] MEDS ORDERED: ONDANSETRON 4 MG/2 ML VIAL ONE (20:54)
[2023-12-30] MEDS ORDERED: DIAZEPAM 5 MG TABLET ONE (20:55)
[2023-12-30] MEDS ORDERED: FAMOTIDINE 20 MG/2 ML VIAL IV ONE (20:55)
[2023-12-30] MEDS ORDERED: NA CHLORIDE 0.9% 1,000 ML ONE (20:55)
[2023-12-30 20:58] LABS: Absolute Eosinophils 0.3 K/uL (0-0.5); Absolute Monocytes 0.7 K/uL (0.1-1.3); Absolute Neutrophil 3.7 K/uL (1.8-8.0); Basophils % 0.5 % (0-1.3); Eosinophils % 3.4 % (0-4.4); Hematocrit 38.5 % (39.6-49.0); Hemoglobin 12.3 g/dL (13.6-17.9); Lymphocytes % 38.6 % (15.3-44.8); MPV 7.3 fL (7.6-11.3); Monocytes % 9.3 % (3.3-12.3); Neutrophils % 48.2 % (41.7-73.7); Nucleated Red Blood Cells % 0.2 % (0-0); Platelets 278 thou/uL (152-406); RBC Red Blood Cell Count 5.14 M/uL (4.33-5.43); Red Cell Distribution Width 14.7 % (12.1-15.2)
[2023-12-30 21:04] LABS: PT Prothrombin Time 12.4 SECONDS (9.4-12.5); Protime INR 1.13
[2023-12-30 21:18] LABS: ALT/SGPT 40 U/L (16-61); AST/SGOT 27 U/L (15-37); Albumin 3.6 g/dL (3.4-5.0); Albumin/Globulin Ratio 0.9 (1.1-1.8); Alkaline Phosphatase 87 U/L (45-117); Anion Gap 8.4 mEq/L (5.0-15.0); BUN Blood Urea Nitrogen 19 mg/dL (7-18); Bicarbonate 27 mEq/L (21-32); Bilirubin Total 0.2 mg/dL (0.2-1.0); Globulin 4.1 g/dL (2.3-3.5); Glomerular Filtration Rate 89 ml/min (=/>90); Glucose Level 161 mg/dL (74-106); Lipase 20 U/L (13-75); Magnesium 2.2 mg/dL (1.6-2.4); Potassium 3.4 mEq/L (3.5-5.1); Protein, Total 7.7 g/dL (6.4-8.2); Sodium Level 135 mEq/L (136-145); Troponin High Sensitivity 4.4 pg/mL (<58.9)
[2023-12-30 21:21] LABS: Bilirubin Direct < 0.2 mg/dL (0-0.2); NT PRO-BNP < 5 pg/mL (<125)
--- NOTE | 2023-12-30 21:32 | RAD REPORT ---
EXAM DESCRIPTION: [facility] Single View12/30/2023 9:22 pm CLINICAL HISTORY: Chest pain COMPARISON: August 2023 FINDINGS: The lungs appear clear of acute infiltrate. The heart is normal size IMPRESSION: No acute abnormalities displayed
--- NOTE | 2023-12-30 22:19 | EDPHYS ---
Physician Documentation [facility] Name: Holden Morris Age: 38 yrs Sex: Male : 1985 Arrival Date: 12/30/2023 Time: 20:05 Bed DX5 Private MD: ED Physician Aidan Carranza HPI: 12/29 20:47 This 38 yrs old Black Male presents to ER via Ambulatory with complaints of Headache, lorna Chest Tightness, INFLAMMATION IN UPPER EXT. 20:47 The patient complains of pain to the forehead, left frontal area and right frontal lorna area. The patient describes the headache as aching, intermittent. Onset: The symptoms/episode began/occurred 4 day(s) ago. Associated signs and symptoms: Pertinent positives:. Severity of symptoms: At its worst the pain was mild, in the emergency department the pain is unchanged. Headache History: The patient has had previous headaches and this one is similar to previous episodes. The symptoms are alleviated by nothing. the symptoms are aggravated by nothing. The patient has experienced similar episodes in the past, several times. Historical: - Allergies: 20:26 PENICILLINS; young; cm10 - PMHx: 20:26 SHAY; Anxiety; Asthma; autoimmune disease; GERD; Hypertension; Resolved; Migraines; cm10 - PSHx: 20:26 Cornea transplant L eye; cm10 - Immunization history:: Adult Immunizations up to date. - Infectious Disease History:: Denies. - Social history:: Smoking status: Patient denies any tobacco usage or history of. - Family history:: not pertinent. ROS: 20:47 Constitutional: Negative for fever, chills, and weight loss, Eyes: Negative for injury, lorna pain, redness, and discharge, ENT: Negative for injury, pain, and discharge, Neck: Negative for injury, pain, and swelling, Respiratory: Negative for shortness of breath, cough, wheezing, and pleuritic chest pain, Abdomen/GI: Negative for abdominal pain, nausea, vomiting, diarrhea, and constipation, Back: Negative for injury and pain, : Negative for injury, bleeding, discharge, and swelling, Skin: Negative for injury, rash, and discoloration, Neuro: Negative for headache, weakness, numbness, tingling, and seizure, Psych: Negative for depression, anxiety, suicide ideation, homicidal ideation, and hallucinations, Allergy/Immunology: Negative for hives, rash, and allergies, Endocrine: Negative for neck swelling, polydipsia, polyuria, polyphagia, and marked weight changes, Hematologic/Lymphatic: Negative for swollen nodes, abnormal bleeding, and unusual bruising, 20:47 Cardiovascular: Positive for chest pain, 20:47 MS/extremity: Positive for pain, tenderness, of the right arm and left arm, Exam: 20:47 Constitutional: This is a well developed, well nourished patient who is awake, alert, lorna and in no acute distress. Head/Face: Normocephalic, atraumatic. Eyes: Pupils equal round and reactive to light, extra-ocular motions intact. Lids and lashes normal. Conjunctiva and sclera are non-icteric and not injected. Cornea within normal limits. Periorbital areas with no swelling, redness, or edema. ENT: Nares patent. No nasal discharge, no septal abnormalities noted. Tympanic membranes are normal and external auditory canals are clear. Oropharynx with no redness, swelling, or masses, exudates, or evidence of obstruction, uvula midline. Mucous membranes moist. Neck: Trachea midline, no thyromegaly or masses palpated, and no cervical lymphadenopathy. Supple, full range of motion without nuchal rigidity, or vertebral point tenderness. No Meningismus. Chest/axilla: Normal chest wall appearance and motion. Nontender with no deformity. No lesions are appreciated. Cardiovascular: Regular rate and rhythm with a normal S1 and S2. No gallops, murmurs, or rubs. Normal PMI, no JVD. No pulse deficits. Respiratory: Lungs have equal breath sounds bilaterally, clear to auscultation and percussion. No rales, rhonchi or wheezes noted. No increased work of breathing, no retractions or nasal flaring. Abdomen/GI: Soft, non-tender, with normal bowel sounds. No distension or tympany. No guarding or rebound. No evidence of tenderness throughout. Back: No spinal tenderness. No costovertebral tenderness. Full range of motion. Male : Normal genitalia with no discharge or lesions. Skin: Warm, dry with normal turgor. Normal color with no rashes, no lesions, and no evidence of cellulitis. MS/ Extremity: Pulses equal, no cyanosis. Neurovascular intact. Full, normal range of motion. Neuro: Awake and alert, GCS 15, oriented to person, place, time, and situation. Cranial nerves II-XII grossly intact. Motor strength 5/5 in all extremities. Sensory grossly intact. Cerebellar exam normal. Normal gait. Psych: Awake, alert, with orientation to person, place and time. Behavior, mood, and affect are within normal limits. 20:47 ECG was reviewed by the Attending Physician. 20:47 Musculoskeletal/extremity: DVT Exam: no pain, no swelling, no tenderness, negative Homans' sign noted on exam, no appreciated bluish discoloration, no erythema, no increased warmth, Vital Signs: 20:24 BP 149 / 83; Pulse 93; Resp 18; Temp 97.5; Pulse Ox 98% on R/A; Weight 106.59 kg; cm10 Height 5 ft. 10 in. ; Pain 10/10; 22:33 BP 138 / 82; Pulse 88; Resp 18; Pulse Ox 99% ; vc1 20:24 Body Mass Index 33.72 (106.59 kg, 177.8 cm) cm10 20:24 Pain Scale: Adult cm10 Malina Coma Score: 20:51 Eye Response: spontaneous(4). Motor Response: obeys commands(6). Verbal Response: lorna oriented(5). Total: 15. MDM: 20:35 Patient medically screened. lorna 20:51 Differential diagnosis: hypertensive headache, hypoglycemia, hyponatremia, migraine, lorna sinusitis. Data reviewed: vital signs, nurses notes, lab test result(s), EKG, radiologic studies, plain films. Consideration of Admission/Observation Patient was admitted/placed on observation. Escalation of care including admission/observation considered. I considered the following discharge prescriptions or medication management in the emergency department Medications were administered in the Emergency Department. See MAR. Independent interpretation of the following test(s) in the Emergency Department EKG: See my EKG interpretation above. Test considered but Not performed: Ultrasound no 2 d echo. Historians other than the Patient: pt well informed. Care significantly affected by the following chronic conditions: Hypertension, asthma, shay, autoimmune, migraines. 12/29 20:37 Order name: Basic Metabolic Panel; Complete Time: 22:17 lorna 12/29 20:37 Order name: CBC with Diff; Complete Time: 22:17 [facility] 12/29 20:37 Order name: LFT's; Complete Time: 22:17 [facility] 12/29 20:37 Order name: Magnesium; Complete Time: 22: [facility] 12/29 20:37 Order name: NT PRO-BNP; Complete Time: 22: [facility] 12/29 20:37 Order name: PT-INR; Complete Time: 22: [facility] 12/29 20:37 Order name: Troponin HS; Complete Time: 22: [facility] 12/29 20:37 Order name: Lipase; Complete Time: 22: [facility] 12/29 20:37 Order name: XRAY Chest (1 view); Complete Time: 22: [facility] 12/29 20:37 Order name: EKG - Nurse/Tech; Complete Time: 21:00 [facility] 12/29 20:37 Order name: IV Saline Lock; Complete Time: 20:51 [facility] 12/29 20:37 Order name: Labs collected and sent; Complete Time: 20: [facility] 12/29 20:37 Order name: O2 Per Protocol; Complete Time: 20: [facility] 12/29 20:37 Order name: O2 Sat Monitoring; Complete Time: 20:51 [facility] EC:47 Rate is 83 beats/min. Rhythm is regular. QRS [place] is Normal. [place] interval is normal. QRS lorna interval is normal. QT interval is normal. No Q waves. T waves are Normal. No ST changes noted. Clinical impression: NSR w/ Non-specific ST/T Changes and No evidence of ischemia. Interpreted by me. Reviewed by me. Administered Medications: 21:09 Drug: Famotidine IVP 20 mg IVP once; dilute with 10 mL 0.9% NaCl; give over 2 minutes vc1 Route: IVP; Site: left antecubital; 22:33 Follow up: Response: No adverse reaction; Marked relief of symptoms vc1 21:10 Drug: NS 0.9% IV 1000 ml IV at 125 ml/hr continuous Route: IV; Rate: 125 ml/hr; Site: vc1 left antecubital; 22:32 Follow up: IV Status: Completed infusion; IV Intake: 1000ml vc1 21:10 Drug: Ketorolac IVP 30 mg IVP once Route: IVP; Site: left antecubital; vc1 22:32 Follow up: Response: No adverse reaction; Marked relief of symptoms vc1 21:10 Drug: Decadron - Dexamethasone IVP 10 mg IVP once Route: IVP; Site: left antecubital; vc1 22:32 Follow up: Response: No adverse reaction; Marked relief of symptoms vc1 21:10 Drug: fentaNYL (PF) IVP 50 mcg IVP once Route: IVP; Site: left antecubital; vc1 22:32 Follow up: Response: No adverse reaction; Marked relief of symptoms vc1 21:10 Drug: Ondansetron IVP 4 mg IVP once; over 2 minutes Route: IVP; Site: left antecubital; vc1 22:32 Follow up: Response: No adverse reaction; Marked relief of symptoms vc1 21:10 Drug: Diazepam PO 10 mg PO once Route: PO; vc1 22:33 Follow up: Response: No adverse reaction; Marked relief of symptoms vc1 22:32 Drug: Potassium PO Effervescent Tablet 50 mEq PO once; dissolve in 4 ounces of water or vc1 juice Route: PO; 22:33 Follow up: Response: Medication administered at discharge. vc1 Disposition Summary: 12/30/23 22:19 Discharge Ordered Notes: Location: Home lorna Problem: new lorna Symptoms: have improved lorna Condition: Stable lorna Diagnosis - Unspecified symptoms and signs involving the musculoskeletal system lorna - Chest pain, unspecified - musculoskeletal lorna - Hypokalemia lorna - Anemia, unspecified lorna Followup: lorna - With: Private Physician - When: 2 - 3 days - Reason: Recheck today's complaints, Continuance of care, Re-evaluation by your physician Followup: lorna - With: Silvano Victoria MD - When: 2 - 3 days - Reason: Recheck today's complaints, Re-evaluation by your physician Discharge Instructions: - Discharge Summary Sheet lorna - Anemia lorna - Nonspecific Chest Pain, Adult lorna - Chest Wall Pain lorna - Potassium Content of Foods lorna - Musculoskeletal Pain lorna - Chest Wall Pain, [id number]-[id number] lorna - Nonspecific Chest Pain, Adult, Wijy-[id number]-[id number] lorna - Aspirin and Your Heart lorna - Hypokalemia lorna Forms: - Medication Reconciliation Form lorna - Antibiotic Education lorna - Prescription Opioid Use lorna - Patient Portal Instructions lorna - Leadership Thank You Letter [facility] Prescriptions: - dexamethasone 4 mg Oral tablet - take 1 tablet ORAL route once daily; 4 tablet; Refills: 0, Product Selection lorna Permitted - Ibuprofen 600 mg Oral Tablet - take 1 tablet ORAL route every 6 hours As needed take with food; 30 tablet; lorna Refills: 0, Product Selection Permitted - Pepcid 20 mg Oral Tablet - take 1 tablet ORAL route every 12 hours for 10 days; 20 tablet; Refills: 0, [facility] Product Selection Permitted - Cyclobenzaprine 5 mg Oral Tablet - take 1 tablet ORAL route 3 times per day As needed; 15 tablet; Refills: 0, [facility] Product Selection Permitted Signatures: Dispatcher [employer] Aidan Goodman MD MD cha Calcote, Vanessa RN RN vc1 Vandana Oliver RN RN cm10 Corrections: (The following items were deleted from the chart) 20:38 20:38 BASIC METABOLIC PANEL+C.LAB.BRZ ordered. EDMS EDMS 20:38 20:38 CBC+H.LAB.BRZ ordered. EDMS EDMS 20:38 20:38 HEPATIC FUNCTION+C.LAB.BRZ ordered. EDMS EDMS 20:38 20:38 MAGNESIUM+C.LAB.BRZ ordered. EDMS EDMS 20:38 20:38 PROBNP+C.LAB.BRZ ordered. EDMS EDMS 20:38 20:38 PROTIME (+INR)+COAG.LAB.BRZ ordered. EDMS EDMS 20:38 20:38 Troponin High Sensitivity+C.LAB.BRZ ordered. EDMS EDMS 20:38 20:38 LIPASE+C.LAB.BRZ ordered. EDMS EDMS 20:38 20:38 Chest Single View+RAD.RAD.BRZ ordered. EDMS EDMS 20:51 20:37 Cardiac monitoring ordered. lorna vc1
--- NOTE | 2023-12-30 22:19 | ER ---
Nurse's Notes [facility] Name: Holden Morris Age: 38 yrs Sex: Male : 1985 Arrival Date: 12/30/2023 Time: 20:05 Bed DX5 Private MD: Diagnosis: Unspecified symptoms and signs involving the musculoskeletal system;Chest pain, unspecified-musculoskeletal;Hypokalemia;Anemia, unspecified Presentation: 12/29 20:24 Chief complaint: Patient states: HEADACHE AND CHEST TIGHTNESS X4 DAYS. PT ALSO REPORTS cm10 SWELLING TO BILATERAL HANDS. Coronavirus screen: Client denies travel out of the [place] in the last 14 days. At this time, the client does not indicate any symptoms associated with coronavirus-19. Ebola Screen: Patient denies travel to an Ebola-affected area in the 21 days before illness onset. No symptoms or risks identified at this time. Initial Sepsis Screen: Does the patient meet any 2 criteria? HR > 90 bpm. Does the patient have a suspected source of infection? No. Patient's initial sepsis screen is negative. Risk Assessment: Do you want to hurt yourself or someone else? Patient reports no desire to harm self or others. Onset of symptoms was December 30, 2023. 20:24 Method Of Arrival: Ambulatory cm10 20:24 Acuity: STONE 2 cm10 Triage Assessment: 20:26 Headache History: Denies prior headaches. General: Appears in no apparent distress. cm10 comfortable, Behavior is calm, cooperative, appropriate for age. Pain: Complains of pain in head and chest Pain does not radiate. Pain currently is 10 out of 10 on a pain scale. Quality of pain is described as TIGHTNESS Pain began 4 DAYS AGO. Neuro: No deficits noted. Level of Consciousness is awake, alert, obeys commands, Oriented to person, place, time, situation, Appropriate for age. Respiratory: No deficits noted. Airway is patent Respiratory effort is even, unlabored, Respiratory pattern is regular, symmetrical. Historical: - Allergies: 20:26 PENICILLINS; young; cm10 - PMHx: 20:26 SHAY; Anxiety; Asthma; autoimmune disease; GERD; Hypertension; Resolved; Migraines; cm10 - PSHx: 20:26 Cornea transplant L eye; cm10 - Immunization history:: Adult Immunizations up to date. - Infectious Disease History:: Denies. - Social history:: Smoking status: Patient denies any tobacco usage or history of. - Family history:: not pertinent. Screenin:30 [facility] ED Fall Risk Assessment (Adult) History of falling in the last 3 months, vc1 including since admission No falls in past 3 months (0 pts) Confusion or Disorientation No (0 pts) Intoxicated or Sedated No (0 pts) Impaired Gait No (0 pts) Mobility Assist Device Used No (0 pt) Altered Elimination No (0 pt) Score/Fall Risk Level 0 - 2 = Low Risk Oriented to surroundings, Maintained a safe environment, Educated pt \T\ family on fall prevention, incl call for assistance when getting out of bed. Abuse screen: Denies threats or abuse. Nutritional screening: No deficits noted. Tuberculosis screening: No symptoms or risk factors identified. Assessment: 22:34 General: Appears in no apparent distress. comfortable, well groomed, well developed, vc1 Behavior is calm, cooperative, appropriate for age. Pain: Complains of pain in chest, right arm and left arm Pain does not radiate. Pain currently is 4 out of 10 on a pain scale. Quality of pain is described as sharp, Pain began suddenly, Is continuous. Neuro: Level of Consciousness is awake, alert, obeys commands, Oriented to person, place, time, situation, Appropriate for age. Cardiovascular: Capillary refill < 3 seconds Patient's skin is warm and dry. Respiratory: Airway is patent Respiratory effort is even, unlabored, Respiratory pattern is regular, symmetrical, Breath sounds are clear bilaterally. GI: No deficits noted. No signs and/or symptoms were reported involving the gastrointestinal system. : No deficits noted. No signs and/or symptoms were reported regarding the genitourinary system. EENT: No deficits noted. No signs and/or symptoms were reported regarding the EENT system. Derm: Skin is intact, is healthy with good turgor, Skin is dry. Musculoskeletal: Swelling present in right arm and left arm. Vital Signs: 20:24 BP 149 / 83; Pulse 93; Resp 18; Temp 97.5; Pulse Ox 98% on R/A; Weight 106.59 kg; cm10 Height 5 ft. 10 in. ; Pain 10/10; 22:33 BP 138 / 82; Pulse 88; Resp 18; Pulse Ox 99% ; vc1 20:24 Body Mass Index 33.72 (106.59 kg, 177.8 cm) cm10 20:24 Pain Scale: Adult cm10 Tillman Coma Score: 20:51 Eye Response: spontaneous(4). Motor Response: obeys commands(6). Verbal Response: lorna oriented(5). Total: 15. ED Course: 20:10 Patient arrived in ED. [email or web address] 20:26 Triage completed. cm10 20:27 Arm band placed on Patient placed in waiting room. EKG completed in triage. Results cm10 shown to MD. 20:30 Patient has correct armband on for positive identification. Call light in reach. placed vc1 in diagnostic chair. 20:35 Aidan Carranza MD is Attending Physician. lorna 21:00 Inserted saline lock: 20 gauge in left antecubital area, using aseptic technique. Blood vc1 collected. 21:00 Initial lab(s) drawn, by me, sent to lab. vc1 21:24 XRAY Chest (1 view) In Process Unspecified. EDMS 22:19 Silvano Victoria MD is Referral Physician. lorna 22:36 No provider procedures requiring assistance completed. IV discontinued, intact, vc1 bleeding controlled, No redness/swelling at site. Pressure dressing applied. Administered Medications: 21:09 Drug: Famotidine IVP 20 mg IVP once; dilute with 10 mL 0.9% NaCl; give over 2 minutes vc1 Route: IVP; Site: left antecubital; 22:33 Follow up: Response: No adverse reaction; Marked relief of symptoms vc1 21:10 Drug: NS 0.9% IV 1000 ml IV at 125 ml/hr continuous Route: IV; Rate: 125 ml/hr; Site: vc1 left antecubital; 22:32 Follow up: IV Status: Completed infusion; IV Intake: 1000ml vc1 21:10 Drug: Ketorolac IVP 30 mg IVP once Route: IVP; Site: left antecubital; vc1 22:32 Follow up: Response: No adverse reaction; Marked relief of symptoms vc1 21:10 Drug: Decadron - Dexamethasone IVP 10 mg IVP once Route: IVP; Site: left antecubital; vc1 22:32 Follow up: Response: No adverse reaction; Marked relief of symptoms vc1 21:10 Drug: fentaNYL (PF) IVP 50 mcg IVP once Route: IVP; Site: left antecubital; vc1 22:32 Follow up: Response: No adverse reaction; Marked relief of symptoms vc1 21:10 Drug: Ondansetron IVP 4 mg IVP once; over 2 minutes Route: IVP; Site: left antecubital; vc1 22:32 Follow up: Response: No adverse reaction; Marked relief of symptoms vc1 21:10 Drug: Diazepam PO 10 mg PO once Route: PO; vc1 22:33 Follow up: Response: No adverse reaction; Marked relief of symptoms vc1 22:32 Drug: Potassium PO Effervescent Tablet 50 mEq PO once; dissolve in 4 ounces of water or vc1 juice Route: PO; 22:33 Follow up: Response: Medication administered at discharge. vc1 Medication: 22:37 VIS not applicable for this client. vc1 Intake: 22:32 IV: 1000ml; Total: 1000ml. vc1 Outcome: 22:19 Discharge ordered by . lorna 22:37 Discharged to home ambulatory, vc1 22:37 Condition: good 22:37 Discharge instructions given to patient, Instructed on discharge instructions, follow up and referral plans. medication usage, Demonstrated understanding of instructions, follow-up care, medications, Prescriptions given X 4, 22:38 Patient left the ED. vc1 Signatures: Dispatcher [employer] EDAidan De La Garza MD MD cha Jeffries, Jennifer [email or web address] Katie Garcia, RN RN vc1 Vandana Oliver RN RN cm10
[2023-12-30] MEDS ORDERED: POTASSIUM 25 MEQ EFFERV TAB ONE (22:21)
[2023-12-30 22:54] VITALS: BP 138/82; TEMP 97.5; O2SAT 99
--- NOTE | 2024-01-02 14:21 | EKG ---
Test Date: 2023-12-30 Test Time: 20:29:46 Mini Shifter: AF MEASUREMENT RESULTS: Intervals: Rate: 83 CT: 134 QRSD: 88 QT: 342 QTc: 401 [place]: P: 56 CT: 134 QRS: 25 T: -4 INTERPRETIVE STATEMENTS: Normal sinus rhythm Nonspecific T wave abnormality Abnormal ECG Compared to ECG 09/08/2023 17:40:39 Sinus arrhythmia no longer present T-wave abnormality still present Electronically Signed On 01-02-24 14:16:05 CDT by Silvano Victoria
== END 2023-12-30 22:38 | disposition home or self-care (01) ==
LOC: ER 20:05
DX: R29.91 Unspecified symptoms and signs involving the musculoskeletal system (principal); R07.9 Chest pain, unspecified; E87.6 Hypokalemia; D64.9 Anemia, unspecified; Z88.0 Allergy status to penicillin
CPT/HCPCS: 36415; 71045; 80048; 80076; 83690; 83735; 83880; 84484; 85025; 85610; 93005; 96361; 96374; 96375; 99284; J1100; J2405; J3010; J7030

== ENCOUNTER 2024-02-04 17:10 | Emergency (ER) | payer OTHER ==
--- OUTSIDE RECORDS SUMMARY | 2024-02-04 17:12 | XMS REPORT | Continuity of Care Document ---
Author Name Unknown Address [address] [facility] [address] th[address] Address [address] [facility] 1 [address] [place] [address] Care Team Providers Care Barrel Driller Name Role Phone PCP, PATIENT DOES NOT HAVE A Primary Care Physic josh Unavailable KO GUILLAUME Attending Clinician Unavailable Ko Guillaume DO Attending Clinician KO GUILLAUME Admitting Clinician Unavailable Allergies, Adverse Reactions, Alerts Allergy Name Allergy Type Status Severity Reaction(s) Onset Date Inactive Date Treating Clinician Comments Source NO KNOWN ALLERGIE S Drug Class Active [facility] Social History Social Habit Start Date Stop Date Quantity Comments Source Sexual orientation U [facility] Sex Assigned At 1985 00:00:00 1985 00:00:00 [facility] Smoking Status Start Date Stop Date Source Tobacco smoking consumption unknown [facility] Medications Ordered Medication Name Filled Medication Name Start Date Stop Date Current Medication? Ordering Clinician Indication Dosage Frequency Signature (SIG) Comments Components Source dexamethaso ne (DECADRON PHOSPHATE) injection 10 mg 2022-07 19:30: 00 06-07 18:29 :00 No 10mg 10 mg, Oral, ONCE, 1 dose, On Tue06/07/23 at 1330, Routine [facility] methylPREDN ISolone (MEDROL, COLIN,) 4 mg tablets 2022-07 00:00: 00 Yes [id number] Take by mouth SEE-INSTRU CTIONS. follow package directions [facility] benzonatate 100 mg capsule 2022-07 00:00: 00 Yes [id number] 100mg Take 1 capsule by mouth 3 (three) times daily as needed for Cough. [facility] Vital Signs Vital Name Observation Time Observation Value Comments S elvin Systolic blood pressure 2023-06-07 18:12:00 113 mm[Hg] [facility] Diastolic blood pressure 2023-06-07 18:12:00 98 mm[Hg] [facility] Heart rate 2023-06-07 18:12:00 75 /min [facility] Body temperature 2023-06-07 18:12:00 36.61 Yari [facility] Respiratory rate 2023-06-07 18:12:00 14 /min [facility] Body height 2023-06-07 18:12:00 177.8 cm [facility] Body weight 2023-06-07 18:12:00 108.863 kg [facility] BMI 2023-06-07 18:12:00 34.44 kg/m2 [facility] Oxygen saturation in Arterial blood by Pulse oximetry 2023-06-07 18:12:00 100 /min [facility] Procedures Procedure Date / Time Performed Performing Clinicia n Source ASSIGNMENT OF BENEFITS 2023-06-07 20:25:00 Docto r Unassigned, [place] [facility] NOTICE OF PRIVACY PRACTICES 2023-06-07 20:24:45 Doctor Unassigned, [place] [facility] XR CHEST 1 VW 2023-06-07 20:16:56 Ko Guillaume [facility] RAPID INFLUENZA A/B 2023-06-07 18:27:00 Hamida Guillaume [facility] COVID-19 (ID NOW RAPID TESTING) 2023-06-07 18:27:00 Ko Guillaume [facility] CONSENT/REFUSAL FOR DIAGNOSIS AND TREATMENT 2023-06-07 17:57:37 Doctor Unassigned, [place] [facility] Encounters Start Date/Time End Date/Time Encounter Type Admission Type Attending Clinicians Care Facility Care Department Encounter ID Source 2023-06-07 12:17:00 2023-06-07 14:48:00 Emergency X KO GUILLAUME RUST ERT [id number] [facility] 2023-06-07 12:17:00 2023-06-07 14:48:00 Emergency Ko Guillaume [facility] [id number] [facility]
--- NOTE | 2024-02-04 18:49 | ER ---
Nurse's Notes [facility] Name: Holden Morris Age: 39 yrs Sex: Male : 1985 Arrival Date: 02/04/2024 Time: 17:10 Bed IW3 Private MD: Diagnosis: ED Course: 02/03 17:12 Patient arrived in ED. im 17:29 Chantale Chen PA-C [facility] sb4 17:29 João Barillas MD is Attending Physician. sb4 18:15 Patient's name was called from ER lobAppiphany. No response. aa5 18:38 Patient's name was called from ER lobby. No response. aa5 Administered Medications: No medications were administered Outcome: 18:48 Patient left the ED. aa5 Signatures: Kanwal Villarreal RN RN aa5 Chantale Chen PA-C PA-C sb4 Joann Bhakta im
--- NOTE | 2024-02-05 18:49 | EDPHYS ---
Physician Documentation [facility] Name: Holden Morris Age: 39 yrs Sex: Male : 1985 Arrival Date: 02/04/2024 Time: 17:10 Bed IW3 Private MD: ED Physician João Barillas MDM: 02/03 18:37 Patient medically screened. sb4 Administered Medications: No medications were administered Disposition: 20:00 Chart complete. sb4 20:14 Co-signature as Attending Physician, João Barillas MD I reviewed the patient's care rt provided by the Advanced Practice Provider and agree with the diagnosis and treatment plan. Disposition Summary: 02/04/24 18:48 Eloped Notes: Disposition: Before Triage aa5 Reason: unknown aa5 Signatures: Kanwal Villarreal RN RN aa5 Chantale Chen, PA-C PA-C sb4 João Barillas MD MD rt
== END 2024-02-04 18:48 | disposition left against medical advice (07) ==
LOC: ER 17:10
DX: Z02.9 Encounter for administrative examinations, unspecified (principal)

== ENCOUNTER 2024-02-05 19:42 | Emergency (ER) | payer OTHER ==
--- OUTSIDE RECORDS SUMMARY | 2024-02-05 19:46 | XMS REPORT | Continuity of Care Document ---
Author Name Unknown Address [address] [facility] [address] thconnect Address [address] [facility] 1 [address] [place] [address] Care Team Providers Care Tennis Instructor Name Role Phone PCP, PATIENT DOES NOT [...] Date Quantity Comments Source Sexual orientation U [facility] Sex Assigned At 1985 00:00:00 1985 00:00:00 [facility] Smoking Status Start Date Stop Date Source Tobacco smoking consumption unknown [facility] Medications Ordered Medication Name Filled Medication Name [...] 4 mg tablets 2022-07 00:00: 00 Yes [id number] Take by mouth SEE-INSTRU CTIONS. follow package directions [facility] benzonatate 100 mg capsule 2022-07 00:00: 00 Yes [id number] 100mg Take 1 capsule by mouth 3 (three) times daily as needed for Cough. [facility] Vital Signs Vital Name Observation Time Observation Value Comments S elvin Systolic blood pressure 2023-06-07 18:12:00 113 mm[Hg] [facility] Diastolic blood pressure 2023-06-07 18:12:00 98 mm[Hg] [facility] Heart rate 2023-06-07 18:12:00 75 /[facility] Body temperature 2023-06-07 18:12:00 36.61 Yari [facility] Respiratory rate 2023-06-07 18:12:00 14 /min [facility] Body height 2023-06-07 18:12:00 177.8 cm [facility] Body weight 2023-06-07 18:12:00 108.863 kg [facility] BMI 2023-06-07 18:12:00 34.44 kg/m2 [facility] Oxygen saturation in Arterial blood by Pulse oximetry 2023-06-07 18:12:00 100 /min [facility] Procedures Procedure Date / Time Performed Performing Clinicia n Source ASSIGNMENT OF BENEFITS 2023-06-07 20:25:00 Docto r Unassigned, [place] [facility] NOTICE OF PRIVACY PRACTICES 2023-06-07 20:24:45 Doctor Unassigned, [place] [facility] XR CHEST 1 VW 2023-06-07 20:16:56 Ko Guillaume [facility] RAPID INFLUENZA A/B 2023-06-07 18:27:00 Hamida Guillaume [facility] COVID-19 (ID NOW RAPID TESTING) 2023-06-07 18:27:00 Ko Guillaume [facility] CONSENT/REFUSAL FOR DIAGNOSIS AND TREATMENT 2023-06-07 17:57:37 Doctor Unassigned, [place] [facility] Encounters Start Date/Time End Date/Time Encounter Type Admission Type Attending Clinicians Care Facility Care Department Encounter ID Source 2023-06-07 12:17:00 2023-06-07 14:48:00 Emergency X KO GUILLAUME [facility] ERT [id number] [facility] 2023-06-07 12:17:00 2023-06-07 14:48:00 Emergency Ko Guillaume [facility] [id number] [facility]
[2024-02-05 20:56] LABS: Absolute Basophils 0.1 K/uL (0-0.5); Absolute Eosinophils 0.2 K/uL (0-0.5); Absolute Lymphocytes (CBC) 2.9 K/uL (0.7-4.9); Absolute Monocytes 0.4 K/uL (0.1-1.3); Absolute Neutrophil 3.2 K/uL (1.8-8.0); Eosinophils % 2.3 % (0-4.4); Hematocrit 36.1 % (39.6-49.0); Hemoglobin 11.2 g/dL (13.6-17.9); Lymphocytes % 43.6 % (15.3-44.8); MCH 23.3 pg (27.0-35.0); MCV 75.1 fL (80-100); MPV 8.1 fL (7.6-11.3); Monocytes % 6.4 % (3.3-12.3); Neutrophils % 46.7 % (41.7-73.7); Platelets 254 thou/uL (152-406); Red Cell Distribution Width 14.6 % (12.1-15.2)
[2024-02-05] MEDS ORDERED: ASPIRIN 81 MG CHEWABLE TABLET ONE (20:59)
[2024-02-05] MEDS ORDERED: METOCLOPRAMIDE 10 MG/2mL INJ ONE (21:00)
[2024-02-05] MEDS ORDERED: KETOROLAC 30 MG/ML INJ ONE (21:00)
[2024-02-05] MEDS ORDERED: DIPHENHYDRAMINE 50 MG/ML VIAL ONE (21:00)
[2024-02-05 21:01] LABS: PT Prothrombin Time 10.8 SECONDS (9.4-12.5); Protime INR 0.96
[2024-02-05] MEDS ORDERED: DIPHENOX/ATROP SULF 1 TAB PO ONE (21:01)
[2024-02-05] MEDS ORDERED: NA CHLORIDE 0.9% 1,000 ML ONE (21:01)
--- NOTE | 2024-02-05 21:49 | RAD REPORT ---
EXAM DESCRIPTION: RADChest Single View02/05/2024 9:03 pm CLINICAL HISTORY: CHEST PAIN COMPARISON: Chest Single View dated 12/30/2023; Chest Single View dated 09/08/2023; Chest Single View d ated 07/28/2023; Chest Single View dated 05/17/2023 TECHNIQUE: Portable AP view of the chest. FINDINGS: The lungs are clear. No pneumothorax or effusion. The cardiomediastinal contours are unre markable. IMPRESSION: No acute cardiopulmonary process.
[2024-02-05 22:17] LABS: ALT/SGPT 42 U/L (16-61); AST/SGOT 22 U/L (15-37); Albumin 3.2 g/dL (3.4-5.0); Albumin/Globulin Ratio 0.9 (1.1-1.8); Alkaline Phosphatase 90 U/L (45-117); Anion Gap 6.8 mEq/L (5.0-15.0); BUN Blood Urea Nitrogen 14 mg/dL (7-18); Bicarbonate 29 mEq/L (21-32); Bilirubin Total 0.2 mg/dL (0.2-1.0); Globulin 3.7 g/dL (2.3-3.5); Glomerular Filtration Rate 99 ml/min (=/>90); Glucose Level 198 mg/dL (74-106); Magnesium 1.7 mg/dL (1.6-2.4); NT PRO-BNP 40 pg/mL (<125); Potassium 3.8 mEq/L (3.5-5.1); Protein, Total 6.9 g/dL (6.4-8.2); Sodium Level 137 mEq/L (136-145)
[2024-02-05 22:20] LABS: Bilirubin Direct < 0.2 mg/dL (0-0.2)
--- NOTE | 2024-02-05 22:32 | ER ---
Nurse's Notes [facility] Name: Holden Morris Age: 39 yrs Sex: Male : 1985 Arrival Date: 02/05/2024 Time: 19:42 Bed 6 Private MD: Diagnosis: Dehydration;Diarrheal illness, moderate dehydration, syncopal episode noncardiac chest pain Presentation: 02/04 20:11 Chief complaint: Patient states: I was here yesterday for flu symptoms but I got called vc1 to work. Today I passed out 2 times, my chest hurts, I feel weak, uncontrolled diarrhea, swelling to my feet hands and face. Coronavirus screen: Vaccine status: Patient reports receiving the 2nd dose of the covid vaccine. Client denies travel out of the [place] in the last 14 days. diarrhea, fatigue, muscle pain, Client presents with at least one sign or symptom that may indicate coronavirus-19. Ebola Screen: Patient negative for fever greater than or equal to 101.5 degrees Fahrenheit, and additional compatible Ebola Virus Disease symptoms Patient denies exposure to infectious person. Patient denies travel to an Ebola-affected area in the 21 days before illness onset. No symptoms or risks identified at this time. Initial Sepsis Screen: Does the patient meet any 2 criteria? No. Patient's initial sepsis screen is negative. Does the patient have a suspected source of infection? No. Patient's initial sepsis screen is negative. Risk Assessment: Do you want to hurt yourself or someone else? Patient reports no desire to harm self or others. Onset of symptoms was February 05, 2024. Care prior to arrival: None. Activity prior to arrival: None. Mechanism of Injury: No Mechanism of Injury. Transition of care: patient was not received from another setting of care. 20:11 Method Of Arrival: Ambulatory vc1 20:11 Acuity: STONE 3 vc1 Triage Assessment: 20:17 General: Appears in no apparent distress. well groomed, Behavior is cooperative, vc1 anxious. Pain: Complains of pain in left lower quadrant Pain does not radiate. Pain currently is 7 out of 10 on a pain scale. Quality of pain is described as crampy, Pain began 1 day ago. Also complains of diarrhea. EENT: No deficits noted. No signs and/or symptoms were reported regarding the EENT system. Neuro: Simental Agitation-Sedation Scale (RASS): 0 - Alert and Calm Level of Consciousness is awake, alert, obeys commands, Oriented to person, place, time, situation, Appropriate for age Reports a syncopal episode weakness in all over. Cardiovascular: Reports chest pain, syncope, Capillary refill < 3 seconds Patient's skin is warm and dry. Edema swelling to bilateral feet, hands, and face Chest pain is described as mild. Respiratory: Airway is patent Respiratory effort is even, unlabored, Respiratory pattern is regular, symmetrical. GI: Abdomen is round non-distended, Bowel sounds present X 4 quads. Abd is soft X 4 quads Abdomen is tender to palpation in left lower quadrant. Derm: Skin is intact, is healthy with good turgor, Skin is dry, Skin is normal, Skin temperature is warm. 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 - Infectious Disease History:: Denies. - Social history:: Smoking status: Patient denies any tobacco usage or history of. - Family history:: not pertinent. Screenin:16 [facility] ED Fall Risk Assessment (Adult) History of falling in the last 3 months, vc1 including since admission No falls in past 3 months (0 pts) Confusion or Disorientation No (0 pts) Intoxicated or Sedated No (0 pts) Impaired Gait No (0 pts) Mobility Assist Device Used No (0 pt) Altered Elimination No (0 pt) Score/Fall Risk Level 0 - 2 = Low Risk Oriented to surroundings, Maintained a safe environment, Educated pt \T\ family on fall prevention, incl call for assistance when getting out of bed. Abuse screen: Denies threats or abuse. Nutritional screening: No deficits noted. Tuberculosis screening: No symptoms or risk factors identified. Assessment: 21:22 Reassessment: Patient appears in no apparent distress at this time. General: Appears in jm12 no apparent distress. Neuro: Reports a syncopal episode. Cardiovascular: Reports chest pain. Respiratory: No deficits noted. GI: No deficits noted. No signs and/or symptoms were reported involving the gastrointestinal system. : No deficits noted. No signs and/or symptoms were reported regarding the genitourinary system. EENT: No deficits noted. No signs and/or symptoms were reported regarding the EENT system. Derm: No deficits noted. No signs and/or symptoms reported regarding the dermatologic system. Musculoskeletal: No deficits noted. No signs and/or symptoms reported regarding the musculoskeletal system. Vital Signs: 20:11 BP 157 / 88; Pulse 82; Resp 14; Temp 99.2; Pulse Ox 100% ; Weight 102.06 kg; Height 5 vc1 ft. 10 in. ; 21:21 BP 148 / 62; Pulse 82; Resp 14; Temp 98; Pulse Ox 100% ; jm12 22:14 BP 134 / 72; Pulse 76; Resp 14; Temp 98; Pulse Ox 100% ; jm12 20:11 Body Mass Index 32.28 (102.06 kg, 177.8 cm) vc1 Malina Coma Score: 21:42 Eye Response: spontaneous(4). Motor Response: obeys commands(6). Verbal Response: sp4 oriented(5). Total: 15. ED Course: 19:45 Patient arrived in ED. im 19:46 Arthur Gomez MD is Attending Physician. sp4 20:14 Triage completed. vc1 20:15 Arm band placed on right wrist. vc1 20:16 Patient has correct armband on for positive identification. Bed in low position. Call vc1 light in reach. ctrs on. Pulse ox on. NIBP on. 20:45 Inserted saline lock: 20 gauge in left antecubital area, using aseptic technique. Blood oh1 collected. Flushed with 10 mL NS. 20:57 Basic Metabolic Panel Sent. oh1 20:57 LFT's Sent. oh1 20:57 Magnesium Sent. oh1 20:57 NT PRO-BNP Sent. oh1 20:57 PT-INR Sent. oh1 20:57 Troponin HS Sent. oh1 21:05 XRAY Chest (1 view) In Process Unspecified. EDMS 22:32 IV discontinued, intact, bleeding controlled, No redness/swelling at site. Pressure jm12 dressing applied. Administered Medications: 21:11 Drug: diphenhydrAMINE IVP 25 mg IVP once Route: IVP; Site: right antecubital; jm12 21:11 Drug: Ketorolac IVP 30 mg IVP once Route: IVP; Site: right antecubital; [facility] 21:11 Drug: Aspirin PO Chewable Tablet 324 mg PO once; 81 mg tablets x 4 Route: PO; [facility] 21:11 Drug: metoCLOPramide IVP 20 mg IVP once; over 15 mins Route: IVP; Site: right [facility] antecubital; 21:12 Drug: NS 0.9% IV 1000 ml IV at 1 bolus Per protocol; 1000 mL bolus Route: IV; Rate: 1 [facility] bolus; Site: right antecubital; 21:12 Drug: Diphenoxylate-Atropine PO 2 tabs PO once Route: PO; [facility] Medication: 20:16 VIS not applicable for this client. vc1 Outcome: 22:31 Discharge ordered by MD. saucedo 22:32 Discharged to home [facility] 22:32 Discharged to home ambulatory, 22:32 Condition: good 22:32 Discharge instructions given to patient, Instructed on discharge instructions, follow up and referral plans. medication usage, Demonstrated understanding of instructions, follow-up care, medications, Prescriptions given X 3, 22:51 Patient left the ED. [facility] Signatures: Dispatcher [employer] EDMS Katie Garcia RN RN vc1 Arthur Gomez MD MD sp4 Mendoza, Itzel im Markee, Jessica RN RN 12 [address] ambrocio oh1
--- NOTE | 2024-02-05 22:32 | EDPHYS ---
Physician Documentation [facility] Name: Holden Morris Age: 39 yrs Sex: Male : 1985 Arrival Date: 02/05/2024 Time: 19:42 Bed 6 Private MD: ED Physician Arthur Gomez HPI: 02/04 19:46 This 39 yrs old Black Male presents to ER via Unassigned with complaints of Syncope, sp4 Leg Swelling, Chest Pain. 21:42 59-year-old black male with history of SHAY anxiety asthma GERD hypertension migraine sp4 presents with acute onset of diarrhea , chest pain , syncopal episode x 2 just prior to arrival. No reported headache. And patient Also reported chest pain. 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 - Infectious Disease History:: Denies. - Social history:: Smoking status: Patient denies any tobacco usage or history of. - Family history:: not pertinent. ROS: 21:42 Constitutional: Negative for fever, chills, and weight loss, positive chest pain sp4 positive diarrhea positive syncope positive feeling unwell positive headache and positive chest pain 21:42 All other systems are negative, Exam: 21:42 Constitutional: This is a well developed, well nourished patient who is awake, alert, sp4 and in no acute distress. Head/Face: Normocephalic, atraumatic. Eyes: Pupils equal round and reactive to light, extra-ocular motions intact. Lids and lashes normal. Conjunctiva and sclera are not injected. Cornea within normal limits. Periorbital areas with no swelling, redness, or edema. ENT: Nares patent. No nasal discharge, no septal abnormalities noted. Tympanic membranes are normal and external auditory canals are clear. Oropharynx with no redness, swelling, or masses, exudates, or evidence of obstruction, uvula midline. Mucous membranes moist. Neck: Trachea midline, no thyromegaly or masses palpated, and no cervical lymphadenopathy. Supple, full range of motion without nuchal rigidity, or vertebral point tenderness. Chest/axilla: Normal chest wall appearance and motion. Nontender with no deformity. No lesions are appreciated. Cardiovascular: Regular rate and rhythm with a normal S1 and S2. No gallops, murmurs, or rubs. Normal PMI, no JVD. No pulse deficits. Respiratory: Lungs have equal breath sounds bilaterally, clear to auscultation and percussion. No rales, rhonchi or wheezes noted. No increased work of breathing, no retractions or nasal flaring. Abdomen/GI: Soft, with normal bowel sounds. No distension or tympany. No guarding or rebound. No evidence of tenderness throughout. Back: No spinal tenderness. No costovertebral tenderness. Skin: Warm, dry with normal turgor. Normal color with no rashes, no lesions, and no evidence of cellulitis. MS/ Extremity: Pulses equal, no cyanosis. Neurovascular intact. Full, normal range of motion. Neuro: Awake and alert, GCS 15, oriented to person, place, time, and situation. Cranial nerves II-XII grossly intact. Motor strength 5/5 in all extremities. Sensory grossly intact. Psych: Awake, alert, with orientation to person, place and time. Behavior, mood, and affect are within normal limits 21:42 ECG was reviewed by the Attending Physician. EKG at 2005 sinus rhythm rate 82 sp4 Vital Signs: 20:11 BP 157 / 88; Pulse 82; Resp 14; Temp 99.2; Pulse Ox 100% ; Weight 102.06 kg; Height 5 vc1 ft. 10 in. ; 21:21 BP 148 / 62; Pulse 82; Resp 14; Temp 98; Pulse Ox 100% ; jm12 22:14 BP 134 / 72; Pulse 76; Resp 14; Temp 98; Pulse Ox 100% ; jm12 20:11 Body Mass Index 32.28 (102.06 kg, 177.8 cm) vc1 Malina Coma Score: 21:42 Eye Response: spontaneous(4). Motor Response: obeys commands(6). Verbal Response: sp4 oriented(5). Total: 15. MDM: 19:53 Patient medically screened. sp4 22:06 Differential Diagnosis: cardiac arrhythmia, drug effect, pseudo seizure, vasovagal sp4 episode. Data reviewed: vital signs, nurses notes. 22:08 ED course: EXAM DESCRIPTION: [facility] Single View8/10/2023 9:03 pm CLINICAL HISTORY: sp4 CHEST PAIN COMPARISON: Chest Single View dated 12/30/2023; Chest Single View dated 09/08/2023; Chest Single View dated 07/28/2023; Chest Single View dated 05/17/2023 TECHNIQUE: Portable AP view of the chest. FINDINGS: The lungs are clear. No pneumothorax or effusion. The cardiomediastinal contours are unremarkable. IMPRESSION: No acute cardiopulmonary process. . 22:30 Consideration of Admission/Observation Escalation of care including sp4 admission/observation considered. 02/04 19:50 Order name: Basic Metabolic Panel; Complete Time: 22:28 4 02/04 19:50 Order name: CBC with Diff; Complete Time: 22:19 4 02/04 19:50 Order name: LFT's; Complete Time: 22:28 4 02/04 19:50 Order name: Magnesium; Complete Time: 22:28 4 02/04 19:50 Order name: NT PRO-BNP; Complete Time: 22:28 4 02/04 19:50 Order name: PT-INR; Complete Time: 22:19 sp4 02/04 19:50 Order name: Troponin HS; Complete Time: 22:28 4 02/04 19:50 Order name: XRAY Chest (1 view); Complete Time: 22:19 sp4 02/04 19:50 Order name: Cardiac monitoring; Complete Time: 20:49 sp4 02/04 19:50 Order name: EKG - Nurse/Tech; Complete Time: 20:50 4 02/04 19:50 Order name: IV Saline Lock; Complete Time: 20:50 sp4 02/04 19:50 Order name: Labs collected and sent; Complete Time: 20:50 sp4 02/04 19:50 Order name: O2 Per Protocol; Complete Time: 20:50 sp4 02/04 19:50 Order name: O2 Sat Monitoring; Complete Time: 20:50 sp4 02/04 20:59 Order name: Misc. Order: recollect labs; Complete Time: 21:27 kmf EC:42 Rate is 82 beats/min. Rhythm is regular, Normal Sinus Rhythm. QRS [place] is Normal. [place] sp4 interval is normal. QRS interval is normal. QT interval is normal. No Q waves. T waves are Normal. No ST changes noted. Clinical impression: Normal ECG. Interpreted by me. Reviewed by me. Administered Medications: 21:11 Drug: diphenhydrAMINE IVP 25 mg IVP once Route: IVP; Site: right antecubital; 12 21:11 Drug: Ketorolac IVP 30 mg IVP once Route: IVP; Site: right antecubital; 12 21:11 Drug: Aspirin PO Chewable Tablet 324 mg PO once; 81 mg tablets x 4 Route: PO; 12 21:11 Drug: metoCLOPramide IVP 20 mg IVP once; over 15 mins Route: IVP; Site: right 12 antecubital; 21:12 Drug: NS 0.9% IV 1000 ml IV at 1 bolus Per protocol; 1000 mL bolus Route: IV; Rate: 1 12 bolus; Site: right antecubital; 21:12 Drug: Diphenoxylate-Atropine PO 2 tabs PO once Route: PO; [facility] Disposition Summary: 02/05/24 22:31 Discharge Ordered Notes: Location: Home sp4 Problem: new sp4 Symptoms: have improved sp4 Condition: Stable sp4 Diagnosis - Dehydration sp4 - Diarrheal illness, moderate dehydration, syncopal episode noncardiac chest pain sp4 Followup: sp4 - With: Private Physician - When: 7 - 10 days - Reason: Recheck today's complaints Discharge Instructions: - Discharge Summary Sheet sp4 - Viral Gastroenteritis, Adult, [id number] sp4 Forms: - Work release form sp4 - Patient Portal Instructions sp4 Prescriptions: - Fioricet 50-300-40 mg Oral capsule - take 1 capsule ORAL route every 8 hours PRN headache; 30 capsule; Refills: 0, sp4 Product Selection Permitted - Lomotil 2.5-0.025 mg Oral Tablet - take 1 tablet ORAL route every 6 hours As needed; 20 tablet; Refills: 0, sp4 Product Selection Permitted - ondansetron 8 mg Oral Tablet,disintegrating - take 1 tablet ORAL route every 8 hours PRN nausea; 30 tablet; Refills: 0, sp4 Product Selection Permitted Signatures: Dispatcher [employer] Katie Forrester RN RN vc1 Arthur Gomez MD MD sp4 Janice Woodward [facility] Yuliana Bertrand RN RN jm12 Corrections: (The following items were deleted from the chart) 19:50 19:50 BASIC METABOLIC PANEL+C.LAB.BRZ ordered. EDMS EDMS 19:50 19:50 CBC+H.LAB.BRZ ordered. EDMS EDMS 19:50 19:50 HEPATIC FUNCTION+C.LAB.BRZ ordered. EDMS EDMS 19:50 19:50 MAGNESIUM+C.LAB.BRZ ordered. EDMS EDMS 19:50 19:50 PROBNP+C.LAB.BRZ ordered. EDMS EDMS 19:50 19:50 PROTIME (+INR)+COAG.LAB.BRZ ordered. EDMS EDMS 19:50 19:50 Troponin High Sensitivity+C.LAB.BRZ ordered. EDMS EDMS 19:51 19:50 Chest Single View+RAD.RAD.BRZ ordered. EDMS EDMS
[2024-02-06 03:15] VITALS: O2SAT 100
[2024-02-06 03:20] VITALS: TEMP 98
[2024-02-06 03:30] VITALS: BP 134/72
--- NOTE | 2024-02-06 16:57 | EKG ---
Test Date: 2024-02-05 Test Time: 20:06:26 Front Edger: LUDA MEASUREMENT RESULTS: Intervals: Rate: 82 GA: 126 QRSD: 82 QT: 342 QTc: 399 [place]: P: 44 GA: 126 QRS: 14 T: 27 INTERPRETIVE STATEMENTS: Normal sinus rhythm Normal ECG Compared to ECG 01/21/2024 11:04:42 No significant changes Electronically Signed On 02-06-24 16:56:44 CDT by Silvano Victoria
== END 2024-02-05 22:51 | disposition home or self-care (01) ==
LOC: ER 19:42
DX: E86.0 Dehydration (principal); R55 Syncope and collapse; R07.9 Chest pain, unspecified
CPT/HCPCS: 93005; 85025; 80048; 36415; 83735; 85610; 80076; 84484; 83880; 71045; J2765; J1200; J7030; 96374; 96375; 99285

== ENCOUNTER 2024-02-12 18:24 | Emergency (ER) | payer OTHER ==
--- OUTSIDE RECORDS SUMMARY | 2024-02-12 18:26 | XMS REPORT | Continuity of Care Document ---
Author Name Unknown Address [address] [facility] [address] thconnect Address [address] [facility] [address] [place] [address] Care Team Providers Care Safety Intern Name Role Phone PCP, PATIENT DOES NOT HAVE A Primary Care Physic josh Unavailable KO GUILLAUME Attending Clinician Unavailable Ko Guillaume DO Attending Clinician KO GUILLAUME Admitting Clinician Unavailable Allergies, Adverse Reactions, Alerts Allergy Name Allergy Type Status Severity Reaction(s) Onset Date Inactive Date Treating Clinician Comments Source NO KNOWN ALLERGIE S Drug Class Active [facility] Social History Social Habit Start Date Stop Date Quantity Comments Source Sexual orientation U [facility] Sex Assigned At 1985 00:00:00 1985 00:00:00 [facility] Smoking Status Start Date Stop Date Source Tobacco smoking consumption unknown [facility] Medications Ordered Medication Name Filled Medication Name Start Date Stop Date Current Medication? Ordering Clinician Indication Dosage Frequency Signature (SIG) Comments Components Source dexamethaso ne (DECADRON PHOSPHATE) injection 10 mg 2022-07 19:30: 00 06-07 18:29 :00 No 10mg 10 mg, Oral, ONCE, 1 dose, On Tue06/07/23 at 1330, Routine [facility] methylPREDN ISolone (MEDROL, COLIN,) 4 mg tablets 2022-07 00:00: 00 Yes [id number] Take by mouth SEE-INSTRU CTIONS. follow package directions [facility] benzonatate 100 mg capsule 2022-07 00:00: 00 Yes [id number] 100mg Take 1 capsule by mouth 3 (three) times daily as needed for Cough. [facility] Vital Signs Vital Name Observation Time Observation Value Comments S elvin Systolic blood pressure 2023-06-07 18:12:00 113 mm[Hg] [facility] Diastolic blood pressure 2023-06-07 18:12:00 98 mm[Hg] [facility] Heart rate 2023-06-07 18:12:00 75 /min [facility] Body temperature 2023-06-07 18:12:00 36.61 Yari [facility] Respiratory rate 2023-06-07 18:12:00 14 /min [facility] Body height 2023-06-07 18:12:00 177.8 cm [facility] Body weight 2023-06-07 18:12:00 108.863 kg [facility] BMI 2023-06-07 18:12:00 34.44 kg/m2 [facility] Oxygen saturation in Arterial blood by Pulse oximetry 2023-06-07 18:12:00 100 /min [facility] Procedures Procedure Date / Time Performed Performing Clinicia n Source ASSIGNMENT OF BENEFITS 2023-06-07 20:25:00 Docto r Unassigned, [employer] [facility] NOTICE OF PRIVACY PRACTICES 2023-06-07 20:24:45 Doctor Unassigned, [employer] [facility] XR CHEST 1 VW 2023-06-07 20:16:56 Ko Guillaume [facility] RAPID INFLUENZA A/B 2023-06-07 18:27:00 Hamida Guillaume [facility] COVID-19 (ID NOW RAPID TESTING) 2023-06-07 18:27:00 Ko Guillaume [facility] CONSENT/REFUSAL FOR DIAGNOSIS AND TREATMENT 2023-06-07 17:57:37 Doctor Unassigned, [employer] [facility] Encounters Start Date/Time End Date/Time Encounter Type Admission Type Attending Clinicians Care Facility Care Department Encounter ID Source 2023-06-07 12:17:00 2023-06-07 14:48:00 Emergency X KO GUILLAUME [facility] ERT [id number] [facility] 2023-06-07 12:17:00 2023-06-07 14:48:00 Emergency Ko Guillaume [facility] [id number] [facility]
[2024-02-12] MEDS ORDERED: KETOROLAC 30 MG/ML INJ ONE (19:28)
--- NOTE | 2024-02-12 20:15 | RAD REPORT ---
EXAM DESCRIPTION: RAD - Foot Left 3 View - 02/12/2024 7:30 pm CLINICAL HISTORY: PAIN COMPARISON: No comparisons FINDINGS/IMPRESSION: No acute fracture. No malalignment. No significant focal degenerative changes.
--- NOTE | 2024-02-12 20:42 | EDPHYS ---
Physician Documentation [facility] Name: Holden Morris Age: 39 yrs Sex: Male : 1985 Arrival Date: 02/12/2024 Time: 18:24 Bed 11 Private MD: ED Physician Jose Ramon Tinajero HPI: 02/11 20:40 This 39 yrs old Black Male presents to ER via Ambulatory with complaints of Foot Injury.kb 20:40 Pt is a 39 year old male who presents for left foot pain after toolbox fell onto it kb earlier today. States he has been walking since then without difficulty. Denies any other injury. Historical: - Allergies: 19:12 PENICILLINS; kj2 - PMHx: 19:12 SHAY; Anxiety; Asthma; autoimmune disease; GERD; Hypertension; Resolved; Migraines; kj2 - PSHx: 19:12 Cornea transplant L eye; kj2 - Immunization history:: Adult Immunizations up to date. - Infectious Disease History:: Denies. - Social history:: Smoking status: Patient denies any tobacco usage or history of. ROS: 20:39 Constitutional: As per HPI kb Exam: 20:39 Constitutional: This is a well developed, well nourished patient who is awake, alert, kb and in no acute distress. Head/Face: Normocephalic, atraumatic. ENT: Moist Mucous membranes Cardiovascular: Regular rate Respiratory: Respirations even and unlabored. No increased work of breathing. Talking in full sentences Abdomen/GI: Soft, non-tender. No distention Skin: Warm, dry with normal turgor. Normal color. Neuro: Awake and alert, GCS 15, oriented to person, place, time, and situation. Moves all extremities. Normal gait. 20:39 Musculoskeletal/extremity: Extremities: grossly normal except: noted in the dorsum of left foot: pain, tenderness, ROM: intact in all extremities, Circulation is intact in all extremities. Sensation intact. Weight bearing: able to fully bear weight, Vital Signs: 19:04 BP 142 / 78; Pulse 99; Resp 20; Temp 99(O); Pulse Ox 98% on R/A; Weight 102.06 kg; kj2 Height 5 ft. 10 in. ; Pain 9/10; 19:08 BP 142 / 78; Pulse 99; Resp 18; Temp 99(O); Pulse Ox 98% on R/A; kj2 20:29 BP 139 / 79; Pulse 87; Resp 17; Temp 98; Pulse Ox 99% on R/A; rg5 19:04 Body Mass Index 32.28 (102.06 kg, 177.8 cm) kj2 19:04 Pain Scale: Adult kj2 MDM: 18:34 Patient medically screened. kb 20:40 Differential diagnosis: closed fracture, contusion. Data reviewed: vital signs, nurses kb notes. Counseling: I had a detailed discussion with the patient and/or guardian regarding the historical points, exam findings, and any diagnostic results supporting the discharge/admit diagnosis, radiology results, the need for outpatient follow up, a family practitioner, to return to the emergency department if symptoms worsen or persist or if there are any questions or concerns that arise at home. 02/11 19:19 Order name: Foot Left 3 View XRAY; Complete Time: 20:39 kb Administered Medications: 19:32 Drug: Ketorolac IM 30 mg IM once Route: IM; Site: right deltoid; rg5 20:52 Follow up: Response: Pain is decreased rg5 Disposition: 02/12 08:42 Co-signature as Attending Physician, Jose Ramon Tinajero MD I reviewed the patient's care rn provided by the Advanced Practice Provider and agree with the diagnosis and treatment plan. Disposition Summary: 02/12/24 20:42 Discharge Ordered Notes: Location: Home kb Condition: Stable kb Diagnosis - Contusion of left foot kb Followup: kb - With: Emergency Department - When: As needed - Reason: Worsening of condition Followup: kb - With: Private Physician - When: 2 - 3 days - Reason: Recheck today's complaints, Continuance of care, Re-evaluation by your physician Discharge Instructions: - Discharge Summary Sheet kb - Foot Contusion, [id number] kb Forms: - Medication Reconciliation Form kb - Antibiotic Education kb - Prescription Opioid Use kb - Patient Portal Instructions kb - Leadership Thank You Letter kb Prescriptions: - Ibuprofen 800 mg Oral Tablet - take 1 tablet ORAL route every 8 hours As needed take with food; 30 tablet; kb Refills: 0, Product Selection Permitted Signatures: Dispatcher [employer] Eve Crenshaw FNP-C FNP-Jose Ramon Michel MD MD rn Gallardo, Rommel, RN RN rg5 Jos, Josi, RN RN kj2
--- NOTE | 2024-02-12 20:42 | ER ---
Nurse's Notes [facility] Name: Holden Morris Age: 39 yrs Sex: Male : 1985 Arrival Date: 02/12/2024 Time: 18:24 Bed 11 Private MD: Diagnosis: Contusion of left foot Presentation: 02/11 19:04 Chief complaint: Patient states: toolbox fell on left foot. Coronavirus screen: Vaccine kj2 status: Patient reports receiving the 2nd dose of the covid vaccine. Ebola Screen: No symptoms or risks identified at this time. Initial Sepsis Screen: Does the patient meet any 2 criteria? No. Patient's initial sepsis screen is negative. Does the patient have a suspected source of infection? No. Patient's initial sepsis screen is negative. Risk Assessment: Do you want to hurt yourself or someone else? Patient reports no desire to harm self or others. Onset of symptoms was February 12, 2024 at 14:00. 19:04 Method Of Arrival: Ambulatory kj2 19:04 Acuity: STONE 3 kj2 Triage Assessment: 19:06 General: Appears in no apparent distress. uncomfortable, Behavior is calm, cooperative. kj2 Pain: Complains of pain in left foot Pain currently is 9 out of 10 on a pain scale. Neuro: Level of Consciousness is awake, alert, obeys commands, Oriented to person, place, time, situation. Cardiovascular: Patient's skin is warm and dry. Respiratory: Airway is patent Respiratory effort is even, unlabored. GI: No deficits noted. : No deficits noted. Musculoskeletal: Reports pain in left foot. Injury Description: left foot. Historical: - Allergies: 19:12 PENICILLINS; kj2 - PMHx: 19:12 SHAY; Anxiety; Asthma; autoimmune disease; GERD; Hypertension; Resolved; Migraines; kj2 - PSHx: 19:12 Cornea transplant L eye; kj2 - Immunization history:: Adult Immunizations up to date. - Infectious Disease History:: Denies. - Social history:: Smoking status: Patient denies any tobacco usage or history of. Screenin:10 [facility] ED Fall Risk Assessment (Adult) History of falling in the last 3 months, kj2 including since admission No falls in past 3 months (0 pts) Confusion or Disorientation No (0 pts) Intoxicated or Sedated No (0 pts) Impaired Gait No (0 pts) Mobility Assist Device Used No (0 pt) Altered Elimination No (0 pt) Score/Fall Risk Level 0 - 2 = Low Risk Maintained a safe environment, Educated pt \T\ family on fall prevention, incl call for assistance when getting out of bed, Hourly rounding (assess needs \T\ fall precautionary measures) done. Abuse screen: Denies threats or abuse. Denies injuries from another. Nutritional screening: No deficits noted. Tuberculosis screening: No symptoms or risk factors identified. Assessment: 19:09 General: see triage assessment. kj2 20:30 Reassessment: Patient and/or family updated on plan of care and expected duration. Pain rg5 level reassessed. Patient states feeling better. Vital Signs: 19:04 BP 142 / 78; Pulse 99; Resp 20; Temp 99(O); Pulse Ox 98% on R/A; Weight 102.06 kg; kj2 Height 5 ft. 10 in. ; Pain 9/10; 19:08 BP 142 / 78; Pulse 99; Resp 18; Temp 99(O); Pulse Ox 98% on R/A; kj2 20:29 BP 139 / 79; Pulse 87; Resp 17; Temp 98; Pulse Ox 99% on R/A; rg5 19:04 Body Mass Index 32.28 (102.06 kg, 177.8 cm) kj2 19:04 Pain Scale: Adult kj2 ED Course: 18:25 Patient arrived in ED. ra3 18:34 Eve Murray FNP-C is [facility]. kb 18:34 Jose Ramon Tinajero MD is Attending Physician. kb 19:04 Josi Arguello RN is Primary Nurse. kj2 19:06 Triage completed. kj2 19:11 Patient has correct armband on for positive identification. Bed in low position. Call kj2 light in reach. Provided Education on: call light, fall precautions. 19:12 Arm band placed on. rg5 19:13 No provider procedures requiring assistance completed. kj2 19:32 Foot Left 3 View XRAY In Process Unspecified. EDMS 20:30 Patient did not have IV access during this emergency room visit. rg5 Administered Medications: 19:32 Drug: Ketorolac IM 30 mg IM once Route: IM; Site: right deltoid; rg5 20:52 Follow up: Response: Pain is decreased rg5 Medication: 19:13 VIS not applicable for this client. kj2 Outcome: 20:30 Discharged to home ambulatory, rg5 20:30 Condition: stable 20:30 Discharge instructions given to patient, Instructed on discharge instructions, Demonstrated understanding of instructions, follow-up care, Prescriptions given X 1, 20:42 Discharge ordered by . kb 20:59 Patient left the ED. rg5 Signatures: Dispatcher [employer] EDMS Eve Murray, PHU YEAGER-Ngozi Zamora ra3 Blanco Hammonds, RN RN rg5 Josi Arguello, RN RN kj2
[2024-02-12 21:30] VITALS: BP 139/79; TEMP 98; O2SAT 99
== END 2024-02-12 20:59 | disposition home or self-care (01) ==
LOC: ER 18:24
DX: S90.32XA Contusion of left foot, initial encounter (principal)
CPT/HCPCS: 96372; 99284

== ENCOUNTER 2024-02-17 09:46 | Emergency (ER) | payer OTHER ==
[2024-02-17] MEDS ORDERED: NA CHLORIDE 0.9% 1,000 ML ONE (10:12)
[2024-02-17 10:21] LABS: Absolute Eosinophils 0.2 K/uL (0-0.5); Absolute Lymphocytes (CBC) 1.8 K/uL (0.7-4.9); Absolute Monocytes 0.4 K/uL (0.1-1.3); Absolute Neutrophil 3.9 K/uL (1.8-8.0); Basophils % 0.5 % (0-1.3); Eosinophils % 3.5 % (0-4.4); Hematocrit 36.5 % (39.6-49.0); Hemoglobin 11.4 g/dL (13.6-17.9); Lymphocytes % 27.9 % (15.3-44.8); MCH 23.5 pg (27.0-35.0); MCHC 31.1 g/dL (32.0-36.0); MCV 75.3 fL (80-100); MPV 7.2 fL (7.6-11.3); Monocytes % 6.5 % (3.3-12.3); Neutrophils % 61.6 % (41.7-73.7); Nucleated Red Blood Cells % 0.1 % (0-0); Platelets 270 thou/uL (152-406); RBC Red Blood Cell Count 4.85 M/uL (4.33-5.43); Red Cell Distribution Width 14.7 % (12.1-15.2)
--- NOTE | 2024-02-17 10:35 | RAD REPORT ---
EXAM DESCRIPTION: CTAbdomen Pelvis W Contrast - 02/17/2024 10:27 am CLINICAL HISTORY: Abdominal pain. diarrhea, syncope;Abd pain COMPARISON: Abdomen Pelvis W Contrast dated 04/07/2023; Abdomen Pelvis W Contrast dated 01/17/2023 ; Abdomen Pelvis W Contrast dated 11/10/2022; Abdomen Pelvis W Contrast dated 09/03/2022 TECHNIQUE: CT imaging of the abdomen and pelvis was performed with 100 ml non-ionic IV contrast. All CT scans are performed using dose optimization technique as appropriate and may include automated exposure control or mA/KV adjustment according to patient size. FINDINGS: The lung bases are clear. The liver demonstrates mild fatty infiltration. Spleen, pancreas, adrenal glands and kidneys are with in normal limits. No bowel obstruction, free air, free fluid or abscess. The appendix is normal. No evidence of signi ficant lymphadenopathy. No suspicious bony findings. IMPRESSION: No acute intra-abdominal or pelvic finding. Mild fatty liver.
[2024-02-17 10:41] LABS: ALT/SGPT 32 U/L (16-61); AST/SGOT 20 U/L (15-37); Albumin 3.4 g/dL (3.4-5.0); Albumin/Globulin Ratio 0.9 (1.1-1.8); Alkaline Phosphatase 77 U/L (45-117); Anion Gap 8.3 mEq/L (5.0-15.0); BUN Blood Urea Nitrogen 15 mg/dL (7-18); Bicarbonate 28 mEq/L (21-32); Bilirubin Total 0.4 mg/dL (0.2-1.0); Globulin 3.9 g/dL (2.3-3.5); Glomerular Filtration Rate 114 ml/min (=/>90); Glucose Level 209 mg/dL (74-106); Potassium 4.3 mEq/L (3.5-5.1); Protein, Total 7.3 g/dL (6.4-8.2); Sodium Level 137 mEq/L (136-145); Troponin High Sensitivity 4.3 pg/mL (<58.9)
[2024-02-17 10:46] LABS: Bilirubin Direct < 0.2 mg/dL (0-0.2); Bilirubin Indirect, Calculated 0.2 mg/dL (0.2-0.8)
--- NOTE | 2024-02-17 10:51 | RAD REPORT ---
EXAM DESCRIPTION: RAD - Chest Single View - 02/17/2024 10:36 am CLINICAL HISTORY: syncope Chest pain. COMPARISON: Chest Single View dated 02/05/2024; Chest Single View dated 12/30/2023; Chest Single View d ated 09/08/2023; Chest Single View dated 07/28/2023 FINDINGS: Portable technique limits examination quality. The lungs are grossly clear. The heart is mildly prominent size. No displaced fractures. IMPRESSION: No acute intrathoracic process suspected.
--- NOTE | 2024-02-17 11:51 | ER ---
Nurse's Notes [facility] Name: Holden Morris Age: 39 yrs Sex: Male : 1985 Arrival Date: 02/17/2024 Time: 09:46 Bed 12 Private MD: Diagnosis: Syncope Presentation: 02/16 09:58 Chief complaint: Syncopal episode x 2 today and diarrhea x 2 days. Donated plasma hb yesterday. Coronavirus screen: At this time, the client does not indicate any symptoms associated with coronavirus-19. Ebola Screen: No symptoms or risks identified at this time. Initial Sepsis Screen: Does the patient meet any 2 criteria? No. Patient's initial sepsis screen is negative. Does the patient have a suspected source of infection? No. Patient's initial sepsis screen is negative. Risk Assessment: Do you want to hurt yourself or someone else? Patient reports no desire to harm self or others. Onset of symptoms was February 17, 2024. 09:58 Method Of Arrival: Ambulatory hb 09:58 Acuity: STONE 3 hb Triage Assessment: 10:15 General: Appears in no apparent distress. Behavior is calm, cooperative. Pain: le1 Complains of pain in face and abdomen Pain currently is 9 out of 10 on a pain scale. Quality of pain is described as aching, Pain began this morning around 0400. Neuro: No deficits noted. Neuro: Reports headache since this morning. Cardiovascular: No deficits noted. Respiratory: No deficits noted. GI: No deficits noted. : No deficits noted. Historical: - Allergies: 09:59 PENICILLINS; hb - PMHx: 09:59 SHAY; Anxiety; Asthma; autoimmune disease; GERD; Hypertension; Resolved; Migraines; hb - PSHx: 09:59 Cornea transplant L eye; hb - Immunization history:: Adult Immunizations up to date. - Infectious Disease History:: Denies. - Social history:: Smoking status: Patient denies any tobacco usage or history of. - Family history:: not pertinent. - Hospitalizations: : No recent hospitalization is reported. Screenin:17 [facility] ED Fall Risk Assessment (Adult) History of falling in the last 3 months, le1 including since admission Yes- single mechanical fall (1 pt) Confusion or Disorientation No (0 pts) Intoxicated or Sedated No (0 pts) Impaired Gait No (0 pts) Mobility Assist Device Used No (0 pt) Altered Elimination No (0 pt) Score/Fall Risk Level 0 - 2 = Low Risk Oriented to surroundings, Maintained a safe environment, Educated pt \T\ family on fall prevention, incl call for assistance when getting out of bed, Assessed \T\ reinforced patient's understanding of fall precautions, Hourly rounding (assess needs \T\ fall precautionary measures) done, Used ambulatory aids as needed (educated on \T\ assisted with). Abuse screen: Denies threats or abuse. Nutritional screening: No deficits noted. Tuberculosis screening: No symptoms or risk factors identified. Assessment: 10:19 Neuro: Level of Consciousness is awake, alert, obeys commands, Oriented to person, le1 place, time, situation, Speech is normal, Facial symmetry appears normal. Cardiovascular:. 12:08 Cardiovascular: Rhythm is sinus rhythm. le1 Vital Signs: 09:58 BP 133 / 90; Pulse 87; Resp 16; Temp 97.1(TE); Pulse Ox 98% on R/A; Weight 111.13 kg; hb Height 5 ft. 9 in. ; Pain 8/10; 10:39 BP 146 / 79; Pulse 73; Resp 11; Temp 97.8; Pulse Ox 98% on R/A; Pain 9/10; le1 12:07 BP 115 / 68; Pulse 76; Resp 16; Temp 97.9; Pulse Ox 98% on R/A; Pain 0/10; le1 09:58 Body Mass Index 36.18 (111.13 kg, 175.26 cm) hb 09:58 Pain Scale: Adult hb 10:39 Pain Scale: Adult le1 12:07 Pain Scale: Adult le1 Vitals: 10:39 Cardiac Rhythm Assessment Regular Sinus rhythm. le1 ED Course: 09:49 Patient arrived in ED. mg5 09:51 Jose Ramon Tinajero MD is Attending Physician. rn 09:59 Michael Miguel RN is Primary Nurse. le1 09:59 Triage completed. hb 10:01 Arm band placed on. hb 10:18 Patient has correct armband on for positive identification. Bed in low position. Call le1 light in reach. Side rails up X2. Provided Education on: informed to use call light when need of assistance. 10:18 Inserted saline lock: 22 gauge in left antecubital area, using aseptic technique. Blood le1 collected. 10:19 Initial lab(s) drawn, by ED staff, sent to lab. le1 10:29 CT Abd/Pelvis - IV Contrast Only In Process Unspecified. EDMS 10:35 EKG done, by ED staff, reviewed by Jose Ramon Tinajero MD. le1 10:38 Chest Single View XRAY In Process Unspecified. EDMS 12:08 No provider procedures requiring assistance completed. IV discontinued, intact, le1 bleeding controlled, No redness/swelling at site. Pressure dressing applied. Administered Medications: 12:09 Discontinued: ns 0.9% 1000 ml IV at 1000 ml once le1 10:37 Drug: NS 0.9% IV 1000 ml IV at 1000 ml once Route: IV; Rate: 1000 ml; Site: left le1 antecubital; 12:09 Follow up: Response: No adverse reaction; IV Status: Completed infusion; IV Intake: le1 1000ml Medication: 10:18 VIS not applicable for this client. le1 Intake: 12:09 IV: 1000ml; Total: 1000ml. le1 Outcome: 11:50 Discharge ordered by . rn 12:08 Discharged to home ambulatory, le1 12:08 Condition: improved 12:08 Discharge instructions given to patient, Instructed on discharge instructions, follow up and referral plans. Demonstrated understanding of instructions, follow-up care, 12:10 Patient left the ED. le1 Signatures: Dispatcher [employer] EDJose Ramon Mcintyre MD MD rn Baxter, Heather, RN RN hb Gardner, Madison mg5 Michael Miguel RN RN le1 Corrections: (The following items were deleted from the chart) 10:01 09:58 Chief complaint: Syncopal episode x 2 today. Donated plasma yesterday. hb hb
--- NOTE | 2024-02-17 11:51 | EDPHYS ---
Physician Documentation [facility] Name: Holden Morris Age: 39 yrs Sex: Male : 1985 Arrival Date: 02/17/2024 Time: 09:46 Bed 12 Private MD: ED Physician Jose Ramon Tinajero HPI: 02/16 11:48 This 39 yrs old Black Male presents to ER via Ambulatory with complaints of Syncope. rn 11:48 The patient has experienced syncope. Onset: The symptoms/episode began/occurred rn yesterday. Context: occurred at home, occurred while the patient was standing. Associated injury: The patient did not suffer any apparent associated injury. Current symptoms: Currently, the patient is not experiencing any symptoms. The patient has not experienced similar symptoms in the past. Patient reports donated plasma recently, went home and was feeling generalized weakness, passed out after standing up. No injury from syncopal episode. Patient reports feels much better and denies any chest pain or shortness of breath preceding event. Currently at baseline. No complaints right now. Denies intestinal bleeding. No fever or chills. Does not feel ill.. Historical: - Allergies: :59 PENICILLINS; hb - PMHx: 09:59 SHAY; Anxiety; Asthma; autoimmune disease; GERD; Hypertension; Resolved; Migraines; hb - PSHx: 09:59 Cornea transplant L eye; hb - Immunization history:: Adult Immunizations up to date. - Infectious Disease History:: Denies. - Social history:: Smoking status: Patient denies any tobacco usage or history of. - Family history:: not pertinent. - Hospitalizations: : No recent hospitalization is reported. ROS: 11:48 Constitutional: Negative for fever, chills, and weight loss, Neck: Negative for injury, rn pain, and swelling, Cardiovascular: Negative for chest pain, palpitations, and edema, Respiratory: Negative for shortness of breath, cough, wheezing, and pleuritic chest pain, Abdomen/GI: Negative for abdominal pain, nausea, vomiting, diarrhea, and constipation, Back: Negative for injury and pain, MS/Extremity: Negative for injury and deformity, Skin: Negative for injury, rash, and discoloration, Neuro: Negative for headache, numbness, tingling, and seizure, Exam: 11:48 Constitutional: This is a well developed, well nourished patient who is awake, alert, rn and in no acute distress. Head/Face: Normocephalic, atraumatic. ENT: Moist mucous membranes Cardiovascular: Regular rate and rhythm . No pulse deficits. Respiratory: No increased work of breathing, no retractions or nasal flaring. Abdomen/GI: Soft, non-tender MS/ Extremity: Pulses equal, no cyanosis. Neuro: Awake and alert, GCS 15, oriented to person, place, time, and situation. Cranial nerves II-XII grossly intact. Motor strength 5/5 in all extremities. Sensory grossly intact. Cerebellar exam normal. Normal gait. 11:50 ECG was reviewed by the Attending Physician. rn Vital Signs: 09:58 BP 133 / 90; Pulse 87; Resp 16; Temp 97.1(TE); Pulse Ox 98% on R/A; Weight 111.13 kg; hb Height 5 ft. 9 in. ; Pain 8/10; 10:39 BP 146 / 79; Pulse 73; Resp 11; Temp 97.8; Pulse Ox 98% on R/A; Pain 9/10; le1 12:07 BP 115 / 68; Pulse 76; Resp 16; Temp 97.9; Pulse Ox 98% on R/A; Pain 0/10; le1 09:58 Body Mass Index 36.18 (111.13 kg, 175.26 cm) hb 09:58 Pain Scale: Adult hb 10:39 Pain Scale: Adult le1 12:07 Pain Scale: Adult le1 MDM: 09:51 Patient medically screened. rn 11:48 Differential Diagnosis: cardiac arrhythmia, idiopathic syncope, vasovagal episode, rn Anemia, dehydration, orthostatic hypotension. Data reviewed: vital signs, nurses notes, lab test result(s), EKG, radiologic studies, CT scan, and as a result, I will discharge patient. Counseling: I had a detailed discussion with the patient and/or guardian regarding the historical points, exam findings, and any diagnostic results supporting the discharge/admit diagnosis, lab results, radiology results, the need for outpatient follow up, to return to the emergency department if symptoms worsen or persist or if there are any questions or concerns that arise at home. Special discussion: I discussed with the patient/guardian in detail that at this point there is no indication for admission to the hospital. It is understood, however, that if the symptoms persist or worsen the patient needs to return immediately for re-evaluation. 02/16 09:57 Order name: Basic Metabolic Panel; Complete Time: 11:38 rn 02/16 09:57 Order name: CBC with Diff; Complete Time: 11:38 rn 02/16 09:57 Order name: Hepatic Function; Complete Time: 11:38 rn 02/16 09:57 Order name: Troponin High Sensitivity; Complete Time: 11:38 rn 02/16 09:57 Order name: Chest Single View XRAY; Complete Time: 11:38 rn 02/16 09:57 Order name: CT Abd/Pelvis - IV Contrast Only; Complete Time: 11:38 rn 02/16 09:57 Order name: Cardiac monitoring; Complete Time: 10:37 rn 02/16 09:57 Order name: EKG - Nurse/Tech; Complete Time: 10:37 rn 02/16 09:57 Order name: IV Saline Lock; Complete Time: 10:12 rn 02/16 09:57 Order name: Labs collected and sent; Complete Time: 10:15 rn 02/16 09:57 Order name: O2 Sat Monitoring; Complete Time: 10:37 rn EC:50 Rate is 73 beats/min. Rhythm is regular. QRS Baker is Normal. WA interval is normal. QRS rn interval is normal. QT interval is normal. No Q waves. T waves are Normal. No ST changes noted. Clinical impression: NSR w/ Non-specific ST/T Changes. Interpreted by me. Reviewed by me. Administered Medications: 12:09 Discontinued: ns 0.9% 1000 ml IV at 1000 ml once le1 10:37 Drug: NS 0.9% IV 1000 ml IV at 1000 ml once Route: IV; Rate: 1000 ml; Site: left le1 antecubital; 12:09 Follow up: Response: No adverse reaction; IV Status: Completed infusion; IV Intake: le1 1000ml Disposition Summary: 02/17/24 11:50 Discharge Ordered Notes: Location: Home rn Problem: new rn Symptoms: have improved rn Condition: Stable rn Diagnosis - Syncope rn Followup: rn - With: Private Physician - When: As needed - Reason: Recheck today's complaints, Re-evaluation by your physician Discharge Instructions: - Discharge Summary Sheet rn - Syncope rn Forms: - Medication Reconciliation Form rn - Antibiotic blow torch burner - Prescription Opioid Use rn - Patient Portal Instructions rn - Leadership Thank You Letter rn Signatures: Dispatcher [employer] EDMS Jose Ramon Tinajero MD MD rn Baxter, Heather, RN RN hb English, LaKendric, RN RN le1 Corrections: (The following items were deleted from the chart) :58 09:58 Chest Single View+RAD.RAD.BRZ ordered. EDMS EDMS :58 09:58 Abdomen Pelvis W Con+CT.RAD.BRZ ordered. EDMS EDMS
[2024-02-17 12:18] VITALS: O2SAT 98
[2024-02-17 12:34] VITALS: BP 115/68; TEMP 97.9
--- OUTSIDE RECORDS SUMMARY | 2024-02-20 08:35 | XMS REPORT | Continuity of Care Document ---
Author Name Unknown Address [address] [facility] [address] th[address] Address [address] [facility] [address] [place] [address] Care Team Providers Care Industrial Health And Safety Professor Name Role Phone PCP, PATIENT DOES NOT HAVE A Primary Care Physic josh Unavailable KO GUILLAUME Attending Clinician Unavailable Ko Guillaume DO Attending Clinician KO GUILLAUME Admitting Clinician Unavailable Allergies, Adverse Reactions, Alerts Allergy Name Allergy Type Status Severity Reaction(s) Onset Date Inactive Date Treating Clinician Comments Source NO KNOWN ALLERGIE S Drug Class Active [facility] Social History Social Habit Start Date Stop Date Quantity Comments Source Sexual orientation U [facility] Sex Assigned At 1985 00:00:00 1985 00:00:00 [facility] Smoking Status Start Date Stop Date Source Tobacco smoking consumption unknown [facility] Medications Ordered Medication Name Filled Medication Name Start Date Stop Date Current Medication? Ordering Clinician Indication Dosage Frequency Signature (SIG) Comments Components Source dexamethaso ne (DECADRON PHOSPHATE) injection 10 mg 2022-07 19:30: 00 06-07 18:29 :00 No 10mg 10 mg, Oral, ONCE, 1 dose, On Tue06/07/23 at 1330, Routine [facility] methylPREDN ISolone (MEDROL, COLIN,) 4 mg tablets 2022-07 00:00: 00 Yes [id number] Take by mouth SEE-INSTRU CTIONS. follow package directions [facility] benzonatate 100 mg capsule 2022-07 00:00: 00 Yes [id number] 100mg Take 1 capsule by mouth 3 (three) times daily as needed for Cough. [facility] Vital Signs Vital Name Observation Time Observation Value Comments S elvin Systolic blood pressure 2023-06-07 18:12:00 113 mm[Hg] [facility] Diastolic blood pressure 2023-06-07 18:12:00 98 mm[Hg] [facility] Heart rate 2023-06-07 18:12:00 75 /[facility] Body temperature 2023-06-07 18:12:[address] [facility] Respiratory rate 2023-06-07 18:12:00 14 /min [facility] Body height 2023-06-07 18:12:00 177.8 cm [facility] Body weight 2023-06-07 18:12:00 108.863 kg [facility] BMI 2023-06-07 18:12:00 34.44 kg/m2 [facility] Oxygen saturation in Arterial blood by Pulse oximetry 2023-06-07 18:12:00 100 /min [facility] Procedures Procedure Date / Time Performed Performing Clinicia n Source ASSIGNMENT OF BENEFITS 2023-06-07 20:25:00 Docto r Unassigned, [place] [facility] NOTICE OF PRIVACY PRACTICES 2023-06-07 20:24:45 Doctor Unassigned, [place] [facility] XR CHEST 1 VW 2023-06-07 20:16:56 Ko Guillaume [facility] RAPID INFLUENZA A/B 2023-06-07 18:27:[address] [facility] COVID-19 (ID NOW RAPID TESTING) 2023-06-07 18:27:[address] [facility] CONSENT/REFUSAL FOR DIAGNOSIS AND TREATMENT 2023-06-07 17:57:37 Doctor Unassigned, [place] [facility] Encounters Start Date/Time End Date/Time Encounter Type Admission Type Attending Clinicians Care Facility Care Department Encounter ID Source 2023-06-07 12:17:00 2023-06-07 14:48:00 Emergency X KO GUILLAUME [facility] ERT [id number] [facility] 2023-06-07 12:17:00 2023-06-07 14:48:00 Emergency Ko Guillaume [facility] [id number] [facility]
== END 2024-02-17 12:10 | disposition home or self-care (01) ==
LOC: ER 09:46
DX: R55 Syncope and collapse (principal); R53.1 Weakness
CPT/HCPCS: 96361; 93005; 85025; 80048; 36415; 80076; 84484; 74177; 71045; 96360; 99284; Q9967; J7030

== ENCOUNTER 2024-02-24 10:53 | Emergency (ER) | payer OTHER ==
--- OUTSIDE RECORDS SUMMARY | 2024-02-24 10:55 | XMS REPORT | Continuity of Care Document ---
Author Name Unknown Address [address] [facility] [address] th[address] Address [address] [facility] [address] [place] [address] Care Team Providers Care Bottom Worker Name Role Phone PCP, PATIENT DOES NOT HAVE A Primary Care Physic josh Unavailable KO GUILLAUME Attending Clinician Unavailable Ko Guillaume DO Attending Clinician KO GUILLAUME Admitting Clinician Unavailable Allergies, Adverse Reactions, Alerts Allergy Name Allergy Type Status Severity Reaction(s) Onset Date Inactive Date Treating Clinician Comments Source NO KNOWN ALLERGIE S Drug Class Active [facility] Social History Social Habit Start Date Stop Date Quantity Comments Source Sexual orientation [facility] Sex Assigned At 1985 00:00:00 1985 00:00:00 [facility] Smoking Status Start Date Stop Date Source Tobacco smoking consumption unknown [facility] Medications Ordered Medication Name Filled Medication Name Start Date Stop Date Current Medication? Ordering Clinician Indication Dosage Frequency Signature (SIG) Comments Components Source dexamethaso ne (DECADRON PHOSPHATE) injection 10 mg 2022-07 19:30: 00 06-07 18:29 :00 No 10mg 10 mg, Oral, ONCE, 1 dose, On Tue06/07/23 at 1330, Routine [facility] methylPREDN ISolone (MEDROL, COLIN,) 4 mg tablets 2022-07 00:00: 00 Yes [id number] Take by mouth SEE-INSTRU CTIONS. follow package directions [facility] benzonatate 100 mg capsule 2022-07 00:00: 00 Yes [id number] 100mg Take 1 capsule by mouth 3 (three) times daily as needed for Cough. [facility] Vital Signs Vital Name Observation Time Observation Value Comments S elvin Systolic blood pressure 2023-06-07 18:12:00 113 mm[Hg] [facility] Diastolic blood pressure 2023-06-07 18:12:00 98 mm[Hg] [facility] Heart rate 2023-06-07 18:12:00 75 /min [facility] Body temperature 2023-06-07 18:12:00 36.61 Yari [facility] Respiratory rate 2023-06-07 18:12:00 14 /min [facility] Body height 2023-06-07 18:12:00 177.8 cm [facility] Body weight 2023-06-07 18:12:00 108.863 kg [facility] BMI 2023-06-07 18:12:00 34.44 kg/m2 [facility] Oxygen saturation in Arterial blood by Pulse oximetry 2023-06-07 18:12:00 100 /min [facility] Procedures Procedure Date / Time Performed Performing Clinicia n Source ASSIGNMENT OF BENEFITS 2023-06-07 20:25:00 Docto r Unassigned, [place] [facility] NOTICE OF PRIVACY PRACTICES 2023-06-07 20:24:45 Doctor Unassigned, [place]yard [facility] XR CHEST 1 VW 2023-06-07 20:16:56 Ko Guillaume [facility] RAPID INFLUENZA A/B 2023-06-07 18:27:00 Hamida Guillaume [facility] COVID-19 (ID NOW RAPID TESTING) 2023-06-07 18:27:00 Ko Guillaume [facility] CONSENT/REFUSAL FOR DIAGNOSIS AND TREATMENT 2023-06-07 17:57:37 Doctor Unassigned, [place] [facility] Encounters Start Date/Time End Date/Time Encounter Type Admission Type Attending Clinicians Care Facility Care Department Encounter ID Source 2023-06-07 12:17:00 2023-06-07 14:48:00 Emergency X KO GUILLAUME [facility] ERT [id number] [facility] 2023-06-07 12:17:00 2023-06-07 14:48:00 Emergency Ko Guillaume [facility] [id number] [facility]
[2024-02-24 11:33] LABS: SARS-CoV-2 Antigen CONTROL BLUE LINE VIS/BG OK; SARS-CoV-2 Antigen Rapid Res Negative (Negative)
--- NOTE | 2024-02-24 12:44 | EDPHYS ---
Physician Documentation [facility] Name: Holden Morris Age: 39 yrs Sex: Male : 1985 Arrival Date: 02/24/2024 Time: 10:53 Bed IW1 Private MD: ED Physician Jose Ramon Tinajero HPI: 02/23 11:33 This 39 yrs old Black Male presents to ER via Ambulatory with complaints of Cold rn Symptoms, Flu Symptoms. 11:33 The patient or guardian reports cough, flu symptoms. Onset: The symptoms/episode rn began/occurred 2 day(s) ago. Severity of symptoms: At their worst the symptoms were mild, in the emergency department the symptoms are unchanged. Modifying factors: The symptoms are alleviated by nothing, the symptoms are aggravated by nothing. Associated signs and symptoms: Pertinent positives: rhinorrhea, sore throat, Pertinent negatives: fever, vomiting. The patient has experienced similar episodes in the past. Historical: - Allergies: 11:18 PENICILLINS; iw - PMHx: 11:18 Anxiety; SHAY; autoimmune disease; Asthma; GERD; Hypertension; Resolved; Migraines; iw - PSHx: 11:18 Cornea transplant L eye; iw - Family history:: not pertinent. - Hospitalizations: : No recent hospitalization is reported. ROS: 11:33 Constitutional: No fever, positive for chills ENT: Positive for sore throat and nasal rn congestion Cardiovascular: Negative for chest pain, palpitations, and edema, Respiratory: Positive for cough, negative for shortness of breath Abdomen/GI: Negative for abdominal pain, nausea, vomiting, diarrhea, and constipation, MS/Extremity: Negative for injury and deformity, Skin: Negative for injury, rash, and discoloration, Neuro: Positive for headache and malaise Exam: 11:33 Constitutional: This is a well developed, well nourished patient who is awake, alert, rn and in no acute distress. Head/Face: Normocephalic, atraumatic. ENT: No stridor Respiratory: Speaking full sentences, unlabored Vital Signs: 11:17 BP 141 / 91; Pulse 97; Resp 16; Temp 97.5; Pulse Ox 99% on R/A; Weight 111.13 kg; iw Height 5 ft. 9 in. ; Pain 9/10; 11:17 Body Mass Index 36.18 (111.13 kg, 175.26 cm) 11:17 Pain Scale: Adult iw MDM: 11:05 Patient medically screened. rn 12:43 Differential Diagnosis: Influenza Upper Respiratory Infection Viral Syndrome. Data rn reviewed: vital signs, nurses notes, lab test result(s), and as a result, I will discharge patient. Counseling: I had a detailed discussion with the patient and/or guardian regarding the historical points, exam findings, and any diagnostic results supporting the discharge/admit diagnosis, lab results, the need for outpatient follow up, to return to the emergency department if symptoms worsen or persist or if there are any questions or concerns that arise at home. Special discussion: I discussed with the patient/guardian in detail that at this point there is no indication for admission to the hospital. It is understood, however, that if the symptoms persist or worsen the patient needs to return immediately for re-evaluation. 12:43 ED course: Most likely viral syndrome with cough and congestion, generalized malaise. rn COVID/flu/strep negative. No oxygen requirement. No labored breathing to indicate central pulmonary process. Will discharge home as viral syndrome without antibiotics.. 02/23 11:12 Order name: Strep rn 02/23 11:12 Order name: SARS RAPID; Complete Time: 12:42 rn 02/23 11:12 Order name: Flu; Complete Time: 12:42 rn 02/23 11:36 Order name: Throat Culture EDMS Administered Medications: No medications were administered Disposition Summary: 02/24/24 12:44 Discharge Ordered Notes: Location: Home rn Problem: new rn Symptoms: have improved rn Condition: Stable rn Diagnosis - Cough rn - Acute upper respiratory infection, unspecified rn Followup: rn - With: Private Physician - When: As needed - Reason: Recheck today's complaints, Re-evaluation by your physician Discharge Instructions: - Discharge Summary Sheet rn - Viral Respiratory Infection rn - Cough, Adult rn Forms: - Medication Reconciliation Form rn - Antibiotic learning support specialist - Prescription Opioid Use rn - Patient Portal Instructions rn - Leadership Thank You Letter rn Prescriptions: - Guaifenesin AC 10-100 mg/5 mL Oral Liquid - take 10 milliliters ORAL route every 4 hours As needed; 240 milliliter; rn Refills: 0, Product Selection Permitted Signatures: Dispatcher [employer] Keshia Seaman RN RN iw Jose Ramon Tinajero MD MD referral rn: (The following items were deleted from the chart) 11: SARS-COV-2 Antigen Rapid+I.LAB.BRZ ordered. EDMS EDMS 11: Influenza Screen (A \T\ B)+BA.LAB.BRZ ordered. EDMS EDMS 11: Group A Streptococcus Rapid Sc+BA.LAB.BRZ ordered. EDMS EDMS
--- NOTE | 2024-02-24 12:44 | ER ---
Nurse's Notes [facility] Name: Holden Morris Age: 39 yrs Sex: Male : 1985 Arrival Date: 02/24/2024 Time: 10:53 Bed IW1 Private MD: Diagnosis: Cough;Acute upper respiratory infection, unspecified Presentation: 02/23 11:17 Chief complaint: Patient states: fever, cough, body aches, congestion and headache iw since yesterday. Coronavirus screen: Client presents with at least one sign or symptom that may indicate coronavirus-19. Ebola Screen: No symptoms or risks identified at this time. Risk Assessment: Do you want to hurt yourself or someone else? Patient reports no desire to harm self or others. Onset of symptoms was February 23, 2024. 11:17 Method Of Arrival: Ambulatory iw 11:17 Acuity: STONE 4 iw Historical: - Allergies: 11:18 PENICILLINS; iw - PMHx: 11:18 Anxiety; SHAY; autoimmune disease; Asthma; GERD; Hypertension; Resolved; Migraines; iw - PSHx: 11:18 Cornea transplant L eye; iw - Family history:: not pertinent. - Hospitalizations: : No recent hospitalization is reported. Screenin:57 [facility] ED Fall Risk Assessment (Adult) History of falling in the last 3 months, kc6 including since admission No falls in past 3 months (0 pts) Confusion or Disorientation No (0 pts) Intoxicated or Sedated No (0 pts) Impaired Gait No (0 pts) Mobility Assist Device Used No (0 pt) Altered Elimination No (0 pt) Score/Fall Risk Level 0 - 2 = Low Risk. Abuse screen: Denies threats or abuse. Denies injuries from another. Nutritional screening: No deficits noted. Tuberculosis screening: No symptoms or risk factors identified. Vital Signs: 11:17 BP 141 / 91; Pulse 97; Resp 16; Temp 97.5; Pulse Ox 99% on R/A; Weight 111.13 kg; iw Height 5 ft. 9 in. ; Pain 9/10; 11:17 Body Mass Index 36.18 (111.13 kg, 175.26 cm) iw 11:17 Pain Scale: Adult iw ED Course: 10:56 Patient arrived in ED. ra3 11:05 Jose Ramon Tinajero MD is Attending Physician. rn 11:18 Triage completed. iw 11:19 Arm band placed on. iw 12:57 Patient has correct armband on for positive identification. kc6 12:57 No provider procedures requiring assistance completed. Patient did not have IV access kc6 during this emergency room visit. Administered Medications: No medications were administered Medication: 12:57 VIS not applicable for this client. kc6 Outcome: 12:44 Discharge ordered by . rn 12:57 Discharged to home ambulatory, kc6 12:57 Condition: good 12:57 Discharge instructions given to patient, Instructed on discharge instructions, follow up and referral plans. no drinking with medication, no driving heavy equipment, medication usage, Demonstrated understanding of instructions, follow-up care, medications, Prescriptions given X 1, 12:57 Patient left the ED. kc6 Signatures: Keshia Vernon RN RN iw Jose Ramon Tinajero MD MD rn Campbell, Kaitlyn, RN RN kc6 Ngozi Randall ra3
[2024-02-24 13:02] VITALS: BP 141/91; TEMP 97.5; O2SAT 99
== END 2024-02-24 12:57 | disposition home or self-care (01) ==
LOC: ER 10:53
DX: J06.9 Acute upper respiratory infection, unspecified (principal); Z11.52 Encounter for screening for COVID-19
CPT/HCPCS: 36415; 87070; 87081; 87804; 87811; 99283

== ENCOUNTER 2024-03-21 18:21 | Emergency (ER) | payer OTHER ==
--- OUTSIDE RECORDS SUMMARY | 2024-03-21 18:24 | XMS REPORT | Continuity of Care Document ---
Author Name Unknown Address [address] [facility] [address] th[address] Address [address] [facility] [address] [place] [address] Care Team Providers Care Hooker On Name Role Phone PCP, PATIENT DOES NOT HAVE A Primary Care Physic josh Unavailable KO GUILLAUME Attending Clinician Unavailable Ko Guillaume DO Attending Clinician KO GUILLAUME Admitting Clinician Unavailable Allergies, Adverse Reactions, Alerts Allergy Name Allergy Type Status Severity Reaction(s) Onset Date Inactive Date Treating Clinician Comments Source NO KNOWN ALLERGIE S Drug Class Active [facility] Social History Social Habit Start Date Stop Date Quantity Comments Source Sexual orientation U [facility] Sex Assigned At 1985 00:00:00 1985 00[birth year] [...] 1 dose, On Tue06/07/23 at 1330, Routine [facility] methylPREDN ISolone (MEDROL, COLIN,) 4 mg tablets 2022-07 00:00: 00 Yes [id number] Take by mouth SEE-INSTRU CTIONS. follow package directions [facility] benzonatate 100 mg capsule 2022-07 00:00: 00 Yes [id number] 100mg Take 1 capsule by mouth 3 (three) times daily as needed for Cough. [facility] Vital Signs Vital Name Observation Time Observation Value Comments S elvin Systolic blood pressure 2023-06-07 18:12:00 113 mm[Hg] [facility] Diastolic blood pressure 2023-06-07 18:12:00 98 mm[Hg] [facility] Heart rate 2023-06-07 18:12:00 75 /min [facility] Body temperature 2023-06-07 18:12:00 36.61 Yari [facility] Respiratory rate 2023-06-07 18:12:00 14 /min [facility] Body height 2023-06-07 18:12:00 177.8 cm [facility] Body weight 2023-06-07 18:12:00 108.863 kg [facility] BMI 2023-06-07 18:12:00 34.44 kg/m2 [facility] Oxygen saturation in Arterial blood by Pulse oximetry 2023-06-07 18:12:00 100 /min [facility] Procedures Procedure Date / Time Performed Performing Clinicia n Source ASSIGNMENT OF BENEFITS 2023-06-07 20:25:00 Docto r Unassigned, [place] [facility] NOTICE OF PRIVACY PRACTICES 2023-06-07 20:24:45 Doctor Unassigned, [place] [facility] XR CHEST 1 VW 2023-06-07 20:16:56 Ko Guillaume [facility] RAPID INFLUENZA A/B 2023-06-07 18:27:00 Hamida Guillaume [facility] COVID-19 (ID NOW RAPID TESTING) 2023-06-07 18:27:00 Ko Guillaume [facility] CONSENT/REFUSAL FOR DIAGNOSIS AND TREATMENT 2023-06-07 17:57:37 Doctor Unassigned, [place] [facility] Encounters Start Date/Time End Date/Time Encounter Type Admission Type Attending Clinicians Care Facility Care Department Encounter ID Source 2023-06-07 12:17:00 2023-06-07 14:48:00 Emergency X KO GUILLAUME [facility] ERT [id number] [facility] 2023-06-07 12:17:00 2023-06-07 14:48:00 Emergency Ko Guillaume [facility] [id number] [facility]
--- NOTE | 2024-03-21 20:17 | RAD REPORT ---
Forearm Left History: Arm pain No fracture seen.
--- NOTE | 2024-03-21 20:22 | RAD REPORT ---
Hand Left 3 View History: Hand pain No fracture or dislocation Calcification adjacent to the anterior aspect of the third and fourth distal phalanges likely benign
[2024-03-21] MEDS ORDERED: IBUPROFEN 400 MG TAB ONE (21:42)
--- NOTE | 2024-03-21 21:42 | ER ---
Nurse's Notes [facility] Name: Holden Morris Age: 39 yrs Sex: Male : 1985 Arrival Date: 03/21/2024 Time: 18:21 Bed 24 Private MD: Diagnosis: Pain in left wrist;Pain in left hand Presentation: 03/21 18:57 Chief complaint: Patient states: this morning pain started in left wrist and hand. tm6 Feels swollen. Did not fall, just started hurting. Coronavirus screen: Vaccine status: Patient reports being unvaccinated. Coronavirus screen: Vaccine status: Patient reports receiving the 2nd dose of the covid vaccine. Ebola Screen: Patient negative for fever greater than or equal to 101.5 degrees Fahrenheit, and additional compatible Ebola Virus Disease symptoms Patient denies exposure to infectious person. Patient denies travel to an Ebola-affected area in the 21 days before illness onset. No symptoms or risks identified at this time. Initial Sepsis Screen: Does the patient meet any 2 criteria? No. Patient's initial sepsis screen is negative. Does the patient have a suspected source of infection? No. Patient's initial sepsis screen is negative. Risk Assessment: Do you want to hurt yourself or someone else?. Risk Assessment: Do you want to hurt yourself or someone else? Patient reports no desire to harm self or others. Onset of symptoms was March 21, 2024. 18:57 Method Of Arrival: Ambulatory tm6 18:57 Acuity: STONE 4 tm6 Triage Assessment: 18:57 General: Appears in no apparent distress. Behavior is calm, cooperative. Pain: tm6 Complains of pain in left hand Pain currently is 10 out of 10 on a pain scale. Pain began 1 day ago. EENT: No signs and/or symptoms were reported regarding the EENT system. Neuro: Level of Consciousness is awake, alert, obeys commands, Oriented to person, place, time, situation. Cardiovascular: Patient's skin is warm and dry. Respiratory: Airway is patent Respiratory effort is even, unlabored, Respiratory pattern is regular, symmetrical. GI: No signs and/or symptoms were reported involving the gastrointestinal system. Abdomen is round non-distended. : No signs and/or symptoms were reported regarding the genitourinary system. Derm: No signs and/or symptoms reported regarding the dermatologic system. Musculoskeletal: Reports pain in left hand since this morning. Pain is 10 out of 10 on a pain scale. Historical: - Allergies: 18:57 PENICILLINS; tm6 - PMHx: 18:57 SHAY; Anxiety; Asthma; Asthma; autoimmune disease; GERD; Hypertension; Resolved; tm6 Migraines; - PSHx: 18:57 Cornea transplant L eye; tm6 - Immunization history:: Client reports receiving the 2nd dose of the Covid vaccine. - Infectious Disease History:: Denies. - Social history:: Smoking status: Patient denies any tobacco usage or history of. Screenin:41 [facility] ED Fall Risk Assessment (Adult) History of falling in the last 3 months, tm6 including since admission No falls in past 3 months (0 pts) Confusion or Disorientation No (0 pts) Intoxicated or Sedated No (0 pts) Impaired Gait No (0 pts) Mobility Assist Device Used No (0 pt) Altered Elimination No (0 pt) Score/Fall Risk Level 0 - 2 = Low Risk Oriented to surroundings, Maintained a safe environment. Abuse screen: Denies threats or abuse. Denies injuries from another. Nutritional screening: No deficits noted. Tuberculosis screening: No symptoms or risk factors identified. Assessment: 20:41 Reassessment: No changes from previously documented assessment. Patient states symptoms tm6 have not improved. 21:46 General: Appears in no apparent distress. Behavior is calm, cooperative. Pain: tl4 Complains of pain in left hand. Neuro: Level of Consciousness is awake, alert, obeys commands, Oriented to person, place, time, situation. Cardiovascular: Capillary refill < 3 seconds Patient's skin is warm and dry. Respiratory: Airway is patent Respiratory effort is even, unlabored, Respiratory pattern is regular, symmetrical, Breath sounds are clear bilaterally. GI: No signs and/or symptoms were reported involving the gastrointestinal system. : No signs and/or symptoms were reported regarding the genitourinary system. EENT: No signs and/or symptoms were reported regarding the EENT system. Derm: No signs and/or symptoms reported regarding the dermatologic system. Musculoskeletal: Swelling present in left hand Reports pain in left hand. Vital Signs: 18:56 Pulse 82; Resp 19; Temp 97.4(TE); Pulse Ox 100% on R/A; Weight 106.59 kg; Height 5 ft. tm6 9 in. ; Pain 10/10; 18:57 BP 135 / 77; MAP 94 mmHg; tm6 21:49 BP 137 / 64; Pulse 71; Resp 20; Temp 98.1(O); Pulse Ox 99% on R/A; tl4 18:56 Body Mass Index 34.70 (106.59 kg, 175.26 cm) tm6 18:56 Pain Scale: Adult tm6 ED Course: 18:24 Patient arrived in ED. mg5 18:57 Arm band placed on right wrist. tm6 18:57 Patient has correct armband on for positive identification. tm6 18:58 Triage completed. tm6 19:00 Aidan Pacheco PA is PHCP. cp 19:01 Aidan Carranza MD is Attending Physician. cp 20:07 XRAY Hand LEFT 3 View In Process Unspecified. EDMS 20:07 XRAY Forearm LEFT In Process Unspecified. EDMS 21:40 Daniel Corona, NICOL is Primary Nurse. tl4 21:41 Isac Bernal MD is Referral Physician. cp 21:46 No provider procedures requiring assistance completed. Patient did not have IV access tl4 during this emergency room visit. 21:47 Provided Education on: ed process, call read. Client placed on continuous cardiac and tl4 pulse oximetry monitoring. NIBP monitoring applied. Door closed. Noise minimized. Lights dimmed. Moved to private room. 21:49 Velcro wrist splint applied to left wrist. tl4 Administered Medications: 21:45 Drug: Ibuprofen PO 800 mg PO once Route: PO; tl4 21:57 Follow up: Response: No adverse reaction tl4 21:49 Drug: predniSONE PO 60 mg PO once Route: PO; tl4 21:56 Follow up: Response: No adverse reaction tl4 Medication: 20:41 VIS not applicable for this client. tm6 Outcome: 21:41 Discharge ordered by . cp 21:50 Discharged to home ambulatory, tl4 21:50 Condition: stable 21:50 Discharge instructions given to patient, Instructed on discharge instructions, follow up and referral plans. medication usage, splint use Demonstrated understanding of instructions, follow-up care, medications, splint care, Prescriptions given X 2, 21:56 Patient left the ED. tl4 Signatures: Dispatcher [employer] EDOH Aidan Pacheco PA PA cp [place], [place] mg5 Sameera Mc, RN RN tm6 Daniel Corona RN RN tl4 Corrections: (The following items were deleted from the chart) 20:42 20:41 Patient has correct armband on for positive identification. tm6 tm6
--- NOTE | 2024-03-21 21:42 | EDPHYS ---
Physician Documentation [facility] Name: Holden Morris Age: 39 yrs Sex: Male : 1985 Arrival Date: 03/21/2024 Time: 18:21 Bed 24 Private MD: EDUARDO Physician Aidan Carranza HPI: 03/21 19:20 This 39 yrs old Black Male presents to ER via Ambulatory with complaints of Wrist Pain. cp 19:20 The patient or guardian reports pain, swelling. The complaints affect the left wrist cp diffusely. Onset: The symptoms/episode began/occurred this morning, and became worse today. Associated signs and symptoms: Pertinent positives: swelling and pain of left hand, Pertinent negatives: fever, injury. Historical: - Allergies: 18:57 PENICILLINS; tm6 - PMHx: 18:57 SHAY; Anxiety; Asthma; Asthma; autoimmune disease; GERD; Hypertension; Resolved; tm6 Migraines; - PSHx: 18:57 Cornea transplant L eye; tm6 - Immunization history:: Client reports receiving the 2nd dose of the Covid vaccine. - Infectious Disease History:: Denies. - Social history:: Smoking status: Patient denies any tobacco usage or history of. ROS: 19:25 MS/extremity: Positive for pain, swelling, tenderness, of the left wrist and left hand, cp Negative for injury or acute deformity, erythema, 19:25 Constitutional: Negative for body aches, chills, fever, poor PO intake, cp 19:25 Skin: Negative for rash, 19:25 Neuro: Negative for numbness, weakness, 19:25 All other systems are negative, Exam: 19:30 Constitutional: The patient appears in no acute distress, alert, awake, non-toxic, well cp developed, well nourished, 19:30 Head/Face: Normocephalic, atraumatic. cp 19:30 Cardiovascular: Rate: normal, Pulses: Pulses are 2+ in left radial artery. 19:30 Respiratory: the patient does not display signs of respiratory distress, Respirations: normal, no use of accessory muscles, no retractions, labored breathing, is not present, Breath sounds: are clear throughout, no decreased breath sounds, no stridor, no wheezing, 19:30 Abdomen/GI: Inspection: abdomen appears normal, 19:30 Musculoskeletal/extremity: Extremities: noted in the left hand and left wrist: proximal hand and wrist swelling with general tenderness, no erythema, skin intact, Vital Signs: 18:56 Pulse 82; Resp 19; Temp 97.4(TE); Pulse Ox 100% on R/A; Weight 106.59 kg; Height 5 ft. tm6 9 in. ; Pain 10/10; 18:57 BP 135 / 77; MAP 94 mmHg; tm6 21:49 BP 137 / 64; Pulse 71; Resp 20; Temp 98.1(O); Pulse Ox 99% on R/A; tl4 18:56 Body Mass Index 34.70 (106.59 kg, 175.26 cm) tm6 18:56 Pain Scale: Adult tm6 MDM: 19:01 Patient medically screened. cp 21:00 Differential diagnosis: tendonitis, strain, cellulitis, fracture. cp 21:40 Data reviewed: vital signs, nurses notes, radiologic studies, plain films. cp 21:40 I considered the following discharge prescriptions or medication management in the emergency department Medications were administered in the Emergency Department. See MAR. Independent interpretation of the following test(s) in the Emergency Department X-Ray: My interpretation is images of left hand and left forearm negative for fracture. Counseling: I had a detailed discussion with the patient and/or guardian regarding the historical points, exam findings, and any diagnostic results supporting the discharge/admit diagnosis, radiology results, to return to the emergency department if symptoms worsen or persist or if there are any questions or concerns that arise at home. Response to treatment: the patient's symptoms have mildly improved after treatment, and as a result, I will discharge patient. 03/21 19:14 Order name: XRAY Hand LEFT 3 View; Complete Time: 21:43 03/21 21:43 Interpretation: Report reviewed. 03/21 19:14 Order name: XRAY Forearm LEFT; Complete Time: 21:43 cp 03/21 21:43 Interpretation: Report reviewed. 03/21 20:45 Order name: Wrist Splint; Complete Time: 21:45 cp Administered Medications: 21:45 Drug: Ibuprofen PO 800 mg PO once Route: PO; tl4 21:57 Follow up: Response: No adverse reaction tl4 21:49 Drug: predniSONE PO 60 mg PO once Route: PO; tl4 21:56 Follow up: Response: No adverse reaction tl4 Disposition: 03/22 21:37 Chart complete. cp Disposition Summary: 03/21/24 21:41 Discharge Ordered Notes: Location: Home cp Problem: new cp Symptoms: have improved cp Condition: Stable cp Diagnosis - Pain in left wrist cp - Pain in left hand cp Followup: cp - With: Isac Bernal MD - When: 1 week - Reason: pain continues Discharge Instructions: - Discharge Summary Sheet cp - Wrist Pain, Adult cp - Hand Pain cp Forms: - Medication Reconciliation Form cp - Antibiotic Education cp - Prescription Opioid Use cp - Patient Portal Instructions cp - Leadership Thank You Letter cp Prescriptions: - Diclofenac Sodium 75 mg Oral Tablet Sustained Release - take 1 tablet ORAL route 2 times per day; 30 tablet; Refills: 0, Product cp Selection Permitted - Medrol (Delfino) 4 mg Oral Tablets, Dose Pack - take 1 tablet ORAL route as directed - follow package instructions; 1 packet; cp Refills: 0, Product Selection Permitted Signatures: Dispatcher [employer] EDMS Aidan Pacheco PA PA cp Masterson, Tawney RN RN tm6 Daniel Corona RN RN tl4 Corrections: (The following items were deleted from the chart) 03/21 19:15 19:15 Hand Left 3 View+RAD.RAD.BRZ ordered. EDMS EDMS 19:15 19:15 Forearm Left+RAD.RAD.BRZ ordered. EDMS EDMS
[2024-03-21] MEDS ORDERED: predniSONE 20 MG TAB ONE (21:48)
[2024-03-21 22:10] VITALS: BP 137/64; TEMP 98.1; O2SAT 99
== END 2024-03-21 21:56 | disposition home or self-care (01) ==
LOC: ER 18:21
DX: M25.532 Pain in left wrist (principal); M79.642 Pain in left hand; I10 Essential (primary) hypertension; J45.909 Unspecified asthma, uncomplicated; K21.9 Gastro-esophageal reflux disease without esophagitis; M35.9 Systemic involvement of connective tissue, unspecified; F41.9 Anxiety disorder, unspecified; Z88.0 Allergy status to penicillin
CPT/HCPCS: 73130; 73090; 99284; J7512

== ENCOUNTER 2024-04-04 17:40 | Emergency (ER) | payer OTHER ==
--- OUTSIDE RECORDS SUMMARY | 2024-04-04 17:42 | XMS REPORT | Continuity of Care Document ---
Author Name Unknown Address [address] [facility] [address] thconnect Address [address] [facility] 1 [address] [place] [address] Care Team Providers Care Cost Control Specialist Name Role Phone PCP, PATIENT DOES NOT HAVE A Primary Care Physic josh Unavailable KO GUILLAUME Attending Clinician Unavailable Ko Guillaume DO Attending Clinician KO GUILLAUME Admitting Clinician Unavailable Allergies, Adverse Reactions, Alerts Allergy Name Allergy Type Status Severity Reaction(s) Onset Date Inactive Date Treating Clinician Comments Source NO KNOWN ALLERGIE S Drug Class Active [facility] Social History Social Habit Start Date Stop Date Quantity Comments Source Sexual orientation U [facility] [place] Sex Assigned At 1985 00:00:00 1985 00:00:00 [facility] Smoking Status Start Date Stop Date Source Tobacco smoking consumption unknown [facility] Medications Ordered Medication Name Filled Medication Name Start Date Stop Date Current Medication? Ordering Clinician Indication Dosage Frequency Signature (SIG) Comments Components Source dexamethaso ne (DECADRON PHOSPHATE) injection 10 mg 2022-07 19:30: 00 06-07 18:29 :00 No 10mg 10 mg, Oral, ONCE, 1 dose, On Tue06/07/23 at 1330, Routine [facility] methylPREDN ISolone (MEDROL, COLIN,) 4 mg tablets 2022-07 00:00: 00 Yes [id number] Take by mouth SEE-INSTRU CTIONS. follow package directions [facility] benzonatate 100 mg capsule 2022-07 00:00: 00 Yes [id number] 100mg Take 1 capsule by mouth 3 (three) times daily as needed for Cough. [facility] Vital Signs Vital Name Observation Time Observation Value Comments S elvin Systolic blood pressure 2023-06-07 18:12:00 113 mm[Hg] [facility] Diastolic blood pressure 2023-06-07 18:12:00 98 mm[Hg] [facility] Heart rate 2023-06-07 18:12:00 75 /min [facility] Body temperature 2023-06-07 18:12:00 36.61 Yari [facility] Respiratory rate 2023-06-07 18:12:00 14 /min [facility] Body height 2023-06-07 18:12:[address] [facility] Body weight 2023-06-07 18:12:[address] [facility] BMI 2023-06-07 18:12:00 34.44 kg/m2 [facility] Oxygen saturation in Arterial blood by Pulse oximetry 2023-06-07 18:12:00 100 /min [facility] Procedures Procedure Date / Time Performed Performing Clinicia n Source ASSIGNMENT OF BENEFITS 2023-06-07 20:25:00 Docto r Unassigned, [place] [facility] NOTICE OF PRIVACY PRACTICES 2023-06-07 20:24:45 Doctor Unassigned, [place] [facility] XR CHEST 1 VW 2023-06-07 20:16:[address] [facility] RAPID INFLUENZA A/B 2023-06-07 18:27:00 Hamida Guillaume [facility] COVID-19 (ID NOW RAPID TESTING) 2023-06-07 18:27:00 Ko Guillaume [facility] CONSENT/REFUSAL FOR DIAGNOSIS AND TREATMENT 2023-06-07 17:57:37 Doctor Unassigned, [place] [facility] Encounters Start Date/Time End Date/Time Encounter Type Admission Type Attending Clinicians Care Facility Care Department Encounter ID Source 2023-06-07 12:17:00 2023-06-07 14:48:00 Emergency X KO GUILLAUME [facility] ERT [id number] [facility] 2023-06-07 12:17:00 2023-06-07 14:48:00 Emergency Ko Guillaume [facility] [id number] [facility]
--- NOTE | 2024-04-04 18:00 | ER ---
Nurse's Notes [facility] Name: Holden Morris Age: 39 yrs Sex: Male : 1985 Arrival Date: 04/04/2024 Time: 17:40 Bed 12 Private MD: Diagnosis: Burn of second degree of upper back, initial encounter Presentation: 04/04 17:58 Chief complaint: Patient states: Accidentally touched a hot steam pipe at work ll1 Tuesday. Burn with pain to L shoulder. No fever. Coronavirus screen: Client denies travel out of the [place] in the last 14 days. At this time, the client does not indicate any symptoms associated with coronavirus-19. Ebola Screen: Patient denies travel to an Ebola-affected area in the 21 days before illness onset. Initial Sepsis Screen: Does the patient meet any 2 criteria? No. Patient's initial sepsis screen is negative. Does the patient have a suspected source of infection? No. Patient's initial sepsis screen is negative. Risk Assessment: Do you want to hurt yourself or someone else? Patient reports no desire to harm self or others. Onset of symptoms was March 31, 2024. 17:58 Method Of Arrival: Ambulatory ll1 17:58 Acuity: STONE 4 ll1 Triage Assessment: 18:21 General: Appears in no apparent distress. Respiratory: No deficits noted. Injury ll1 Description: Burn was sustained 4 days Patient sustained second-degree burn(s) to back. Estimated total body surface area burned is 1%, using the Rule of Palms. Historical: - Allergies: 17:54 PENICILLINS; ll1 - PMHx: 17:54 Anxiety; SHAY; Asthma; autoimmune disease; GERD; Hypertension; Resolved; Migraines; ll1 - PSHx: 17:54 Cornea transplant L eye; ll1 - Immunization history:: Adult Immunizations up to date. - Infectious Disease History:: Denies. - Social history:: Smoking status: Patient denies any tobacco usage or history of. Screenin:21 [facility] ED Fall Risk Assessment (Adult) History of falling in the last 3 months, ll1 including since admission No falls in past 3 months (0 pts) Confusion or Disorientation No (0 pts) Intoxicated or Sedated No (0 pts) Impaired Gait No (0 pts) Mobility Assist Device Used No (0 pt) Altered Elimination No (0 pt) Score/Fall Risk Level 0 - 2 = Low Risk Maintained a safe environment, Hourly rounding (assess needs \T\ fall precautionary measures) done. Abuse screen: Denies threats or abuse. Nutritional screening: No deficits noted. Tuberculosis screening: No symptoms or risk factors identified. Assessment: 18:00 General: Appears uncomfortable, Behavior is calm, cooperative, appropriate for age. ll1 Pain: Complains of pain in back Quality of pain is described as aching. Derm: Reports 2nd degree burn R posterior shoulder. Musculoskeletal: Circulation, motion, and sensation intact. Capillary refill < 3 seconds, in right fingers. 18:20 Reassessment: No changes from previously documented assessment. Patient and/or family ll1 updated on plan of care and expected duration. Pain level reassessed. Patient is alert, oriented x 3, equal unlabored respirations, skin warm/dry/pink. Vital Signs: 17:58 BP 159 / 91; Pulse 88; Resp 17; Temp 97.2; Pulse Ox 100% ; Weight 106.59 kg; Height 5 ll1 ft. 9 in. ; Pain 10/10; 18:18 BP 151 / 91; Pulse 85; Resp 17; Pulse Ox 99% ; ll1 17:58 Body Mass Index 34.70 (106.59 kg, 175.26 cm) ll1 17:58 Pain Scale: Adult ll1 ED Course: 17:45 Patient arrived in ED. mg5 17:46 Chantale Chen PA-C is PHCP. sb4 17:46 Aidan Carranza MD is Attending Physician. sb4 17:54 Arm band placed on Patient placed in an exam room, on a stretcher. ll1 18:00 Triage completed. ll1 18:19 Wound care: to burn located on back was cleaned with with saline, dressed with ll1 bactroban ointment and non adherent dressing, secured with paper tape Patient tolerated well. 18:21 No provider procedures requiring assistance completed. Patient did not have IV access ll1 during this emergency room visit. 18:22 Patient has correct armband on for positive identification. Provided Education on: ll1 return to ED for worsening symptoms. Administered Medications: 18:14 Drug: Bacitracin Topical Ointment (500 unit/g) 1 application Topical once Route: ll1 Topical; Site: affected area; 18:20 Follow up: Response: No adverse reaction ll1 18:14 Drug: HYDROcodone-acetaminophen PO 5 mg-325 mg 1 tabs PO once {Note: pain 10/10 RASS ll1 0.} Route: PO; 18:20 Follow up: Response: No adverse reaction; Pain is decreased; RASS: Alert and Calm (0) ll1 Medication: 18:22 VIS not applicable for this client. ll1 Outcome: 18:00 Discharge ordered by . sb4 18:22 Discharged to home ambulatory, ll1 18:22 Condition: stable 18:22 Discharge instructions given to patient, Instructed on discharge instructions, follow up and referral plans. medication usage, wound care, Demonstrated understanding of instructions, follow-up care, medications, wound care, Prescriptions given X 1, 18:22 Patient left the ED. ll1 Signatures: Mamta Graham RN RN ll1 Chantale Chen PA-C PAHarpal callahan4 Blaire Mckoy mg5 Corrections: (The following items were deleted from the chart) 18:01 17:58 Pulse 88bpm; Resp 17bpm; Pulse Ox 100%; Temp 97.2F; 106.59 kg; Height 5 ft. 9 ll1 in.; BMI: 34.7; Pain 10/10, Adult; ll1
--- NOTE | 2024-04-04 18:00 | EDPHYS ---
Physician Documentation [facility] Name: Holden Morris Age: 39 yrs Sex: Male : 1985 Arrival Date: 04/04/2024 Time: 17:40 Bed 12 Private MD: EDUARDO Physician Aidan Carranza HPI: 04/04 18:11 This 39 yrs old Black Male presents to ER via Ambulatory with complaints of Burn. sb4 18:11 The patient presents with a burn as a result of a hot surface, pipe, at work, is sb4 located on the left scapular area. 18:12 Onset: The symptoms/episode began/occurred 3 day(s) ago. Burn type and severity: 2nd sb4 degree: of the left scapular area. Associated signs and symptoms: Pertinent negatives: increased lacrimation, increased oral secretions, soot at nares, The patient did not suffer any apparent inhalation injury. The patient has not experienced similar symptoms in the past. The patient has not recently seen a physician. Historical: - Allergies: 17:54 PENICILLINS; ll1 - PMHx: 17:54 Anxiety; SHAY; Asthma; autoimmune disease; GERD; Hypertension; Resolved; Migraines; ll1 - PSHx: 17:54 Cornea transplant L eye; ll1 - Immunization history:: Adult Immunizations up to date. - Infectious Disease History:: Denies. - Social history:: Smoking status: Patient denies any tobacco usage or history of. ROS: 18:12 Constitutional: Negative for fever, chills, and weight loss, sb4 18:12 Skin: Positive for burn, of the left scapular area, 18:12 All other systems are negative, Exam: 18:12 Constitutional: This is a well developed, well nourished patient who is awake, alert, sb4 and in no acute distress. Head/Face: Normocephalic, atraumatic. Eyes: Extra-ocular motions intact. Periorbital areas with no swelling, redness, or edema. ENT: Mucous membranes moist. 18:12 Skin: injury, burn(s), 2nd degree burn injury covers approximately 2% of the total body surface area, and is located on the left scapular area, Vital Signs: 17:58 BP 159 / 91; Pulse 88; Resp 17; Temp 97.2; Pulse Ox 100% ; Weight 106.59 kg; Height 5 ll1 ft. 9 in. ; Pain 10/10; 18:18 BP 151 / 91; Pulse 85; Resp 17; Pulse Ox 99% ; ll1 17:58 Body Mass Index 34.70 (106.59 kg, 175.26 cm) ll1 17:58 Pain Scale: Adult ll1 MDM: 17:51 Patient medically screened. sb4 18:12 Data reviewed: vital signs, nurses notes, and as a result, I will discharge patient. sb4 Counseling: I had a detailed discussion with the patient and/or guardian regarding the historical points, exam findings, and any diagnostic results supporting the discharge/admit diagnosis, to return to the emergency department if symptoms worsen or persist or if there are any questions or concerns that arise at home. 04/04 17:59 Order name: Wound Care; Complete Time: 18:01 sb4 04/04 17:59 Order name: Wound dressing; Complete Time: 18:01 sb4 Administered Medications: 18:14 Drug: Bacitracin Topical Ointment (500 unit/g) 1 application Topical once Route: ll1 Topical; Site: affected area; 18:20 Follow up: Response: No adverse reaction ll1 18:14 Drug: HYDROcodone-acetaminophen PO 5 mg-325 mg 1 tabs PO once {Note: pain 10/10 RASS ll1 0.} Route: PO; 18:20 Follow up: Response: No adverse reaction; Pain is decreased; RASS: Alert and Calm (0) ll1 Disposition Summary: 04/04/24 18:00 Discharge Ordered Notes: Location: Home sb4 Problem: new sb4 Symptoms: have improved sb4 Condition: Stable sb4 Diagnosis - Burn of second degree of upper back, initial encounter sb4 Followup: sb4 - With: Private Physician - When: 1 week - Reason: Wound Recheck Discharge Instructions: - Discharge Summary Sheet sb4 - Burn Care, Adult, [id number] sb4 - Second-Degree Burn, Adult sb4 Forms: - Patient Portal Instructions sb4 - Leadership Thank You Letter sb4 Prescriptions: - bacitracin zinc 500 unit/gram Topical ointment - apply 1 application TOPICAL route every 8 hours; 1 Applicator; Refills: 0, sb4 Product Selection Permitted Signatures: Mamta Graham RN RN ll1 Chantale Chen PA-C PA-C sb4 Corrections: (The following items were deleted from the chart) 18:12 18:11 The patient presents with a burn as a result of a hot surface, pipe, sb4 sb4
[2024-04-04] MEDS ORDERED: HYDROCODONE/APAP 5/325 MG TAB ONE (18:03)
[2024-04-04] MEDS ORDERED: MUPIROCIN 2% OINT 22GM TUBE TOP ONE (18:05)
[2024-04-05 09:08] VITALS: TEMP 97.2
[2024-04-05 09:10] VITALS: BP 151/91; O2SAT 99
== END 2024-04-04 18:22 | disposition home or self-care (01) ==
LOC: ER 17:40
DX: T21.23XA Burn of second degree of upper back, initial encounter (principal); F41.9 Anxiety disorder, unspecified; J45.909 Unspecified asthma, uncomplicated; K21.9 Gastro-esophageal reflux disease without esophagitis; M35.9 Systemic involvement of connective tissue, unspecified; X16.XXXA Contact with hot heating appliances, radiators and pipes, initial encounter; Y93.89 Activity, other specified; Y92.69 Other specified industrial and construction area as the place of occurrence of the external cause; Y99.0 Civilian activity done for income or pay
CPT/HCPCS: 99283

== ENCOUNTER 2024-04-15 08:16 | Emergency (ER) | payer OTHER ==
--- OUTSIDE RECORDS SUMMARY | 2024-04-15 08:19 | XMS REPORT | Continuity of Care Document ---
Author Name Unknown Address [address] [facility] [address] thconnect Address [address] [facility] [address] [place] [address] Care Team Providers Care Keel Press Operator Name Role Phone PCP, PATIENT DOES NOT HAVE A Primary Care Physic josh Unavailable KO GUILLAUME Attending Clinician Unavailable Ko Guillaume DO Attending Clinician KO GUILLAUME Admitting Clinician Unavailable Allergies, Adverse Reactions, Alerts Allergy Name Allergy Type Status Severity Reaction(s) Onset Date Inactive Date Treating Clinician Comments Source NO KNOWN ALLERGIE S Drug Class Active [facility] Social History Social Habit Start Date Stop Date Quantity Comments Source Sexual orientation U [facility] Sex Assigned At 1985 00:00:00 1985 00:00:00 [facility] Smoking Status Start Date Stop Date Source Tobacco smoking consumption unknown [facility] Medications Ordered Medication Name Filled Medication Name Start Date Stop Date Current Medication? Ordering Clinician Indication Dosage Frequency Signature (SIG) Comments Components Source dexamethaso ne (DECADRON PHOSPHATE) injection 10 mg 2022-07 19:30: 00 06-07 18:29 :00 No 10mg 10 mg, Oral, ONCE, 1 dose, On Tue06/07/23 at 1330, Routine [facility] methylPREDN ISolone (MEDROL, COLIN,) 4 mg tablets 2022-07 00:00: 00 Yes [id number] Take by mouth SEE-INSTRU CTIONS. follow package directions [facility] benzonatate 100 mg capsule 2022-07 00:00: 00 Yes [id number] 100mg Take 1 capsule by mouth 3 (three) times daily as needed for Cough. [facility] Vital Signs Vital Name Observation Time Observation Value Comments S elvin Systolic blood pressure 2023-06-07 18:12:00 113 mm[Hg] [facility] Diastolic blood pressure 2023-06-07 18:12:00 98 mm[Hg] [facility] Heart rate 2023-06-07 18:12:00 75 /min [facility] Body temperature 2023-06-07 18:12:00 36.61 Yari [facility] Respiratory rate 2023-06-07 18:12:00 14 /min [facility] Body height 2023-06-07 18:12:00 177.8 cm [facility] Body weight 2023-06-07 18:12:00 108.863 kg [facility] BMI 2023-06-07 18:12:00 34.44 kg/m2 [facility] Oxygen saturation in Arterial blood by Pulse oximetry 2023-06-07 18:12:00 100 /min [facility] Procedures Procedure Date / Time Performed Performing Clinicia n Source ASSIGNMENT OF BENEFITS 2023-06-07 20:25:00 Docto r Unassigned, [place] [facility] NOTICE OF PRIVACY PRACTICES 2023-06-07 20:24:45 Doctor Unassigned, [place] [facility] XR CHEST 1 VW 2023-06-07 20:16:56 Ko Guillaume [facility] RAPID INFLUENZA A/B 2023-06-07 18:27:00 Hamida Guillaume [facility] COVID-19 (ID NOW RAPID TESTING) 2023-06-07 18:27:00 oK Guillaume [facility] CONSENT/REFUSAL FOR DIAGNOSIS AND TREATMENT 2023-06-07 17:57:37 Doctor Unassigned, [place] [facility] Encounters Start Date/Time End Date/Time Encounter Type Admission Type Attending Clinicians Care Facility Care Department Encounter ID Source 2023-06-07 12:17:00 2023-06-07 14:48:00 Emergency X KO GUILLAUME [facility] ERT [id number] [facility] 2023-06-07 12:17:00 2023-06-07 14:48:00 Emergency Ko Guillaume [facility] [id number] [facility]
[2024-04-15 08:58] LABS: Absolute Basophils 0.1 K/uL (0-0.5); Absolute Eosinophils 0.1 K/uL (0-0.5); Absolute Lymphocytes (CBC) 1.8 K/uL (0.7-4.9); Absolute Monocytes 0.4 K/uL (0.1-1.3); Absolute Neutrophil 4.4 K/uL (1.8-8.0); Basophils % 1.4 % (0-1.3); Eosinophils % 1.4 % (0-4.4); Hematocrit 37.8 % (39.6-49.0); Hemoglobin 11.8 g/dL (13.6-17.9); Lymphocytes % 26.2 % (15.3-44.8); MCH 23.6 pg (27.0-35.0); MCHC 31.4 g/dL (32.0-36.0); MCV 75.1 fL (80-100); MPV 7.4 fL (7.6-11.3); Monocytes % 6.1 % (3.3-12.3); Neutrophils % 64.9 % (41.7-73.7); Nucleated Red Blood Cells % 0.2 % (0-0); Platelets 297 thou/uL (152-406); RBC Red Blood Cell Count 5.03 M/uL (4.33-5.43); Red Cell Distribution Width 14.3 % (12.1-15.2)
[2024-04-15] MEDS ORDERED: KETOROLAC 30 MG/ML INJ ONE (09:00)
[2024-04-15 09:30] LABS: Troponin High Sensitivity 5.4 pg/mL (<58.9)
--- NOTE | 2024-04-15 09:31 | RAD REPORT ---
Procedure: Chest Single View HISTORY: Chest pain COMPARISON: February 2024 FINDINGS: The lungs appear clear of acute infiltrate. No significant pleural effusion noted. The heart is normal size. IMPRESSION: No acute abnormality is displayed.
--- NOTE | 2024-04-15 09:57 | ER ---
Nurse's Notes [facility] Name: Holden Morris Age: 39 yrs Sex: Male : 1985 Arrival Date: 04/15/2024 Time: 08:16 Bed 2 Private MD: Diagnosis: Chest pain, unspecified Presentation: 04/15 08:23 Ebola Screen: Patient denies travel to an Ebola-affected area in the 21 days before 1 illness onset. Initial Sepsis Screen: Does the patient meet any 2 criteria? No. Patient's initial sepsis screen is negative. Does the patient have a suspected source of infection? No. Patient's initial sepsis screen is negative. Risk Assessment: Do you want to hurt yourself or someone else? Patient reports no desire to harm self or others. 08:23 Method Of Arrival: Ambulatory [facility] 08:23 Acuity: STONE 3 [facility] 08:29 Chief complaint: Patient states: he started having chest pain yesterday of which he ap3 rates a 8/10 on the pain scale. patient also reports left hand swelling that started this morning. Coronavirus screen: At this time, the client does not indicate any symptoms associated with coronavirus-19. Onset of symptoms was April 14, 2024. Triage Assessment: 08:29 General: Appears in no apparent distress. Behavior is calm, cooperative, appropriate ap3 for age. Pain: Complains of pain in chest and left hand Pain currently is 8 out of 10 on a pain scale. Neuro: Level of Consciousness is awake, alert, obeys commands, Oriented to person, place, time, situation. Cardiovascular: Patient's skin is warm and dry. Respiratory: Airway is patent Respiratory effort is even, unlabored, Respiratory pattern is regular, symmetrical. Historical: - Allergies: 08: PENICILLINS; ll1 - PMHx: 08: SHAY; Anxiety; Asthma; autoimmune disease; GERD; Hypertension; Resolved; Migraines; ll1 - PSHx: 08: Cornea transplant L eye; ll1 - Immunization history:: Adult Immunizations up to date. - Infectious Disease History:: Denies. - Social history:: Smoking status: Patient denies any tobacco usage or history of. Screenin:32 [facility] ED Fall Risk Assessment (Adult) History of falling in the last 3 months, ap3 including since admission No falls in past 3 months (0 pts) Confusion or Disorientation No (0 pts) Intoxicated or Sedated No (0 pts) Impaired Gait No (0 pts) Mobility Assist Device Used No (0 pt) Altered Elimination No (0 pt) Score/Fall Risk Level 0 - 2 = Low Risk Oriented to surroundings, Maintained a safe environment, Educated pt \T\ family on fall prevention, incl call for assistance when getting out of bed, Assessed \T\ reinforced patient's understanding of fall precautions, Hourly rounding (assess needs \T\ fall precautionary measures) done, Used ambulatory aids as needed (educated on \T\ assisted with), Used gait belt as appropriate. Abuse screen: Denies threats or abuse. Nutritional screening: No deficits noted. Tuberculosis screening: No symptoms or risk factors identified. Assessment: 08:32 Pain: Pain does not radiate. Pain began gradually, 1 day ago. ap3 09:19 Reassessment: No changes from previously documented assessment. Patient and/or family ap3 updated on plan of care and expected duration. Pain level reassessed. General: Appears in no apparent distress. comfortable, Behavior is calm, cooperative, appropriate for age. Vital Signs: 08:29 BP 153 / 100; Pulse 65; Resp 14; Temp 97.8; Pulse Ox 99% ; Weight 111.13 kg; Height 5 ap3 ft. 9 in. ; Pain 8/10; 09:19 BP 118 / 72; Pulse 63; Resp 17; Pulse Ox 100% on R/A; ap3 08:29 Body Mass Index 36.18 (111.13 kg, 175.26 cm) ap3 08:29 Pain Scale: Adult ap3 ED Course: 08:19 Patient arrived in ED. mg5 08:23 Triage completed. ll1 08:23 Arm band placed on Patient placed in an exam room, on a stretcher. ll1 08:24 Orlando Cantu MD is Attending Physician. ec2 08:29 Mia Armendariz, NICOL is Primary Nurse. ap3 08:30 EKG completed in triage. Results shown to MD. ll1 08:32 Patient has correct armband on for positive identification. Placed in gown. Bed in low ap3 position. Call light in reach. Side rails up X 1. Provided Education on: fall risk and call light education. Client placed on continuous cardiac and pulse oximetry monitoring. NIBP monitoring applied. library monitor on. Pulse ox on. NIBP on. 08:32 No provider procedures requiring assistance completed. Patient maintains SpO2 ap3 saturation greater than 95% on room air. 08:35 Initial lab(s) drawn, by me, sent to lab. EKG done, by ED staff, reviewed by Orlando Cantu MD. Inserted saline lock: 22 gauge in left antecubital area, using aseptic technique. Blood collected. Flushed with 10 mL NS. 08:38 Missed attempt(s): 20 gauge Bleeding controlled, band aid applied, catheter tip intact. rs6 08:56 Inserted saline lock: 22 gauge in left hand, using aseptic technique. Blood collected. rs6 08:58 XRAY Chest (1 view) In Process Unspecified. EDMS 10:21 IV discontinued, intact, bleeding controlled, No redness/swelling at site. Pressure ap3 dressing applied. Administered Medications: 09:06 Drug: Ketorolac IVP 15 mg IVP once Route: IVP; Site: left antecubital; domi 09:36 Follow up: Response: No adverse reaction ap3 Medication: 08:33 VIS not applicable for this client. ap3 Outcome: 09:57 Discharge ordered by . ec2 10:21 Discharged to home ambulatory, ap3 10:21 Condition: good 10:21 Discharge instructions given to patient, Instructed on discharge instructions, follow up and referral plans. Demonstrated understanding of instructions, follow-up care, 10:21 Patient left the ED. ap3 Signatures: Dispatcher [employer] Mia Keating RN RN ap3 Mamta Graham RN RN 1 Anika Escobedo RN RN Blaire Alvarenga mg5 Orlando Cantu MD MD ec2 João Ambrocio rs6
--- NOTE | 2024-04-15 09:57 | EDPHYS ---
Physician Documentation [facility] Name: Holden Morris Age: 39 yrs Sex: Male : 1985 Arrival Date: 04/15/2024 Time: 08:16 Bed 2 Private MD: ED Physician Orlando Cantu HPI: 04/15 08:53 This 39 yrs old Black Male presents to ER via Ambulatory with complaints of Chest Pain, ec2 Hand Swelling. 08:53 Patient arrives today for evaluation of 1 day of chest pain. Patient reports has been ec2 experiencing chest pain since yesterday. Reports no specific alleviating or exacerbating factors. He denies any exertional component. Patient also reports some possible left hand swelling. Denies any pain injuries or trauma. No reported history of blood clots.. Historical: - Allergies: 08:23 PENICILLINS; ll1 - PMHx: 08:23 SHAY; Anxiety; Asthma; autoimmune disease; GERD; Hypertension; Resolved; Migraines; ll1 - PSHx: 08:23 Cornea transplant L eye; ll1 - Immunization history:: Adult Immunizations up to date. - Infectious Disease History:: Denies. - Social history:: Smoking status: Patient denies any tobacco usage or history of. ROS: 08:53 Constitutional: as per hpi ec2 Exam: 08:53 Constitutional: GEN: NAD Head: atraumatic Eyes: EOMI Ears: External ears are ec2 normal. CV: regular rate LUNGS: no respiratory distress ABD: non-distended SKIN: no evidence of rashes, no appreciable swelling to the bilateral upper extremities, intact distal neurovascular status appreciated, intact strength appreciated. MSK: no evidence of trauma Vital Signs: 08:29 BP 153 / 100; Pulse 65; Resp 14; Temp 97.8; Pulse Ox 99% ; Weight 111.13 kg; Height 5 ap3 ft. 9 in. ; Pain 8/10; 09:19 BP 118 / 72; Pulse 63; Resp 17; Pulse Ox 100% on R/A; ap3 08:29 Body Mass Index 36.18 (111.13 kg, 175.26 cm) ap3 08:29 Pain Scale: Adult ap3 MDM: 08:34 ED course: EKG independently reviewed and interpreted by me, shows normal sinus rhythm, ec2 rate of 67, no acute ST segment changes, intervals are nonactionable.. 08:53 Data reviewed: vital signs. ED course: Patient arrives today for evaluation of chest ec2 pain. Examination remarkable for well-appearing nontoxic hemodynamically stable individuals otherwise in no acute distress with a reassuring examination otherwise. No appreciable swelling noted to the left upper extremity. No evidence of cellulitis. EKG as above, will obtain lab work as well as chest x-ray. Differential diagnoses considered include processes such as ACS, PE, cellulitis, DVT.. 09:56 ED course: Lab work is unremarkable will discharge home. Return precautions given. . ec2 09:57 Patient medically screened. ec2 04/15 08:25 Order name: Basic Metabolic Panel; Complete Time: 09:31 ec2 04/15 08:25 Order name: CBC with Diff; Complete Time: 09:31 ec2 04/15 08:25 Order name: Troponin HS; Complete Time: 09:31 ec2 04/15 08:25 Order name: XRAY Chest (1 view); Complete Time: 09:34 ec2 04/15 08:25 Order name: Cardiac monitoring; Complete Time: 08:33 ec2 04/15 08:25 Order name: EKG - Nurse/Tech; Complete Time: 08:33 ec2 04/15 08:25 Order name: IV Saline Lock; Complete Time: 08:40 ec2 04/15 08:25 Order name: Labs collected and sent; Complete Time: 08:41 ec2 04/15 08:25 Order name: O2 Per Protocol; Complete Time: 08:33 ec2 04/15 08:25 Order name: O2 Sat Monitoring; Complete Time: 08:33 ec2 Administered Medications: 09:06 Drug: Ketorolac IVP 15 mg IVP once Route: IVP; Site: left antecubital; mb9 09:36 Follow up: Response: No adverse reaction ap3 Disposition Summary: 04/15/24 09:57 Discharge Ordered Notes: Location: Home ec2 Condition: Stable ec2 Diagnosis - Chest pain, unspecified ec2 Followup: ec2 - With: Private Physician - When: - Reason: Re-evaluation by your physician Discharge Instructions: - Discharge Summary Sheet ec2 - Nonspecific Chest Pain, Adult, [id number] ec2 Forms: - Medication Reconciliation Form ec2 - Antibiotic Education ec2 - Prescription Opioid Use ec2 - Patient Portal Instructions ec2 - Leadership Thank You Letter ec2 Signatures: Dispatcher [employer] EDMia Madison RN RN ap3 Mamta Graham RN RN ll1 Anika Escobedo RN RN mb9 Orlando Cantu MD MD ec2 Corrections: (The following items were deleted from the chart) 08: 08:26 BASIC METABOLIC PANEL+C.LAB.BRZ ordered. EDMS EDMS 08: 08:26 CBC+H.LAB.BRZ ordered. EDMS EDMS 08: 08:26 Troponin High Sensitivity+C.LAB.BRZ ordered. EDMS EDMS 08: 08:26 Chest Single View+RAD.RAD.BRZ ordered. EDMS EDMS
[2024-04-15 10:44] VITALS: TEMP 97.8
[2024-04-15 10:45] VITALS: BP 118/72; O2SAT 100
== END 2024-04-15 10:21 | disposition home or self-care (01) ==
LOC: ER 08:16
DX: R07.9 Chest pain, unspecified (principal); R22.32 Localized swelling, mass and lump, left upper limb; I10 Essential (primary) hypertension
CPT/HCPCS: 36415; 71045; 80048; 84484; 85025; 93005

== ENCOUNTER 2024-05-24 06:02 | Emergency (ER) | payer OTHER ==
--- OUTSIDE RECORDS SUMMARY | 2024-05-24 06:05 | XMS REPORT | Continuity of Care Document ---
Author Name Unknown Address [address] [facility] [address] [id number] [facility] Address [address] [facility] [address] [place] [address] Care Team Providers Care Separator Operator Name Role Phone PCP, PATIENT DOES NOT HAVE A Primary Care Physic josh Unavailable KO HENDRIX Attending Clinician Unavailable Ko Hendrix DO Attending Clinician [phone] KO HENDRIX Admitting Clinician Unavailable Allergies, Adverse Reactions, Alerts Allergy Name Allergy Type Status Severity Reaction(s) Onset Date Inactive Date Treating Clinician Comments Source NO KNOWN ALLERGIE S Drug Class Active [facility] Social History Social Habit Start Date Stop Date Quantity Comments Source Sexual orientation U [facility] Sex Assigned At 1985 00:00:00 1985 00:00:00 [facility] Smoking Status Start Date Stop Date Source Tobacco smoking consumption unknown [facility] Medications Ordered Medication Name Filled Medication Name Start Date Stop Date Current Medication? Ordering Clinician Indication Dosage Frequency Signature (SIG) Comments Components Source dexamethaso ne (DECADRON PHOSPHATE) injection 10 mg 2022-07 19:30: 00 06-07 18:29 :00 No 10mg 10 mg, Oral, ONCE, 1 dose, On Tue06/07/23 at 1330, Routine [facility] methylPREDN ISolone (MEDROL, COLIN,) 4 mg tablets 2022-07 00:00: 00 Yes [id number] Take by mouth SEE-INSTRU CTIONS. follow package directions [facility] benzonatate 100 mg capsule 2022-07 00:00: 00 Yes [id number] 100mg Take 1 capsule by mouth 3 (three) times daily as needed for Cough. [facility] Vital Signs Vital Name Observation Time Observation Value Comments Vickie oconnor Systolic blood pressure 2023-06-07 18:12:00 113 mm[Hg] [facility] Diastolic blood pressure 2023-06-07 18:12:00 98 mm[Hg] [facility] Heart rate 2023-06-07 18:12:00 75 /min [facility] Body temperature 2023-06-07 18:12:00 36.61 Yari [facility] Respiratory rate 2023-06-07 18:12:00 14 /min [facility] Body height 2023-06-07 18:12:00 177.8 cm [facility] Body weight 2023-06-07 18:12:00 108.863 kg [facility] BMI 2023-06-07 18:12:00 34.44 kg/m2 [facility] Oxygen saturation in Arterial blood by Pulse oximetry 2023-06-07 18:12:00 100 /min [facility] Procedures Procedure Date / Time Performed Performing Clinicia n Source ASSIGNMENT OF BENEFITS 2023-06-07 20:25:00 Docto r Unassigned, [place] [facility] NOTICE OF PRIVACY PRACTICES 2023-06-07 20:24:45 Doctor Unassigned, [place] [facility] XR CHEST 1 VW 2023-06-07 20:16:56 Ko Hendrix [facility] RAPID INFLUENZA A/B 2023-06-07 18:27:00 Hamida Hendrix [facility] COVID-19 (ID NOW RAPID TESTING) 2023-06-07 18:27:00 Ko Hendrix [facility] CONSENT/REFUSAL FOR DIAGNOSIS AND TREATMENT 2023-06-07 17:57:37 Doctor Unassigned, [place] [facility] Encounters Start Date/Time End Date/Time Encounter Type Admission Type Attending Clinicians Care Facility Care Department Encounter ID Source 2023-06-07 12:17:00 2023-06-07 14:48:00 Emergency X KO HENDRIX [facility] ERT [id number] [facility] 2023-06-07 12:17:00 2023-06-07 14:48:00 Emergency Ko Hendrix [facility] [id number] [facility]
[2024-05-24 07:49] LABS: Absolute Eosinophils 0.2 K/uL (0-0.5); Absolute Lymphocytes (CBC) 1.6 K/uL (0.7-4.9); Absolute Monocytes 0.4 K/uL (0.1-1.3); Absolute Neutrophil 3.8 K/uL (1.8-8.0); Basophils % 0.4 % (0-1.3); Eosinophils % 2.7 % (0-4.4); Hemoglobin 11.3 g/dL (13.6-17.9); Lymphocytes % 27.2 % (15.3-44.8); MCH 23.3 pg (27.0-35.0); MCHC 31.4 g/dL (32.0-36.0); MPV 7.4 fL (7.6-11.3); Neutrophils % 62.7 % (41.7-73.7); Nucleated Red Blood Cells % 0.1 % (0-0); Platelets 279 thou/uL (152-406); RBC Red Blood Cell Count 4.86 M/uL (4.33-5.43)
[2024-05-24 08:06] LABS: Troponin High Sensitivity 4.2 pg/mL (<58.9)
[2024-05-24 08:21] LABS: SARS-CoV-2 Antigen CONTROL BLUE LINE VIS/BG OK; SARS-CoV-2 Antigen Rapid Res Negative (Negative)
--- NOTE | 2024-05-24 08:46 | ER ---
Nurse's Notes [facility] Name: Holden Morris Age: 39 yrs Sex: Male : 1985 Arrival Date: 05/24/2024 Time: 06:02 Bed 8 Private MD: Diagnosis: Syncope;Migraine;Hyperglycemia Presentation: 05/24 06:31 Chief complaint: Patient states: i woke up dizzy. started driving to work and i had lg3 several episodes of syncope lasting a few seconds. my head hurts, i have a migraine, my stomach hurts, my throat is scratchy and i have diarrhea. Coronavirus screen: Client denies travel out of the [place] in the last 14 days. At this time, the client does not indicate any symptoms associated with coronavirus-19. Ebola Screen: No symptoms or risks identified at this time. Initial Sepsis Screen: Does the patient meet any 2 criteria? No. Patient's initial sepsis screen is negative. Does the patient have a suspected source of infection? No. Patient's initial sepsis screen is negative. Risk Assessment: Do you want to hurt yourself or someone else? Patient reports no desire to harm self or others. Onset of symptoms was May 24, 2024. 06:31 Method Of Arrival: Ambulatory lg3 06:31 Acuity: STONE 3 lg3 Triage Assessment: 06:34 General: Appears in no apparent distress. comfortable, Behavior is calm, cooperative. lg3 Pain: Complains of pain in abdomen, throat. EENT: No deficits noted. Reports sore throat. Neuro: No deficits noted. Simental Agitation-Sedation Scale (RASS): 0 - Alert and Calm Level of Consciousness is awake, alert, obeys commands, Oriented to person, place, time, situation, Reports dizziness, headache. Cardiovascular: No deficits noted. Denies chest pain, shortness of breath, Capillary refill < 3 seconds Clubbing of nail beds is absent JVD is absent Patient's skin is warm and dry. Respiratory: No deficits noted. Airway is patent Respiratory effort is even, unlabored, Respiratory pattern is regular, symmetrical. GI: Abdomen is round non-distended, Reports lower abdominal pain, upper abdominal pain, diarrhea. : No signs and/or symptoms were reported regarding the genitourinary system. Derm: No deficits noted. No signs and/or symptoms reported regarding the dermatologic system. Skin is intact, is healthy with good turgor, Skin is dry, Skin is normal, Skin temperature is warm. Musculoskeletal: No deficits noted. Circulation, motion, and sensation intact. Range of motion: intact in all extremities. Historical: - Allergies: 06:34 PENICILLINS; lg3 - Home Meds: 06:34 None [Active]; lg3 - PMHx: 06:34 SHAY; Anxiety; Asthma; autoimmune disease; GERD; Hypertension; Resolved; Migraines; lg3 - PSHx: 06:34 Cornea transplant L eye; lg3 - Immunization history:: Adult Immunizations up to date. - Infectious Disease History:: Denies. - Social history:: Smoking status: Patient denies any tobacco usage or history of. Patient/guardian denies using alcohol, street drugs. - Family history:: not pertinent. Screenin:15 [facility] ED Fall Risk Assessment (Adult) History of falling in the last 3 months, ph including since admission No falls in past 3 months (0 pts) Confusion or Disorientation No (0 pts) Intoxicated or Sedated No (0 pts) Impaired Gait No (0 pts) Mobility Assist Device Used No (0 pt) Altered Elimination No (0 pt) Score/Fall Risk Level 0 - 2 = Low Risk Oriented to surroundings, Maintained a safe environment, Hourly rounding (assess needs \T\ fall precautionary measures) done. Abuse screen: Denies threats or abuse. Denies injuries from another. Nutritional screening: No deficits noted. Tuberculosis screening: No symptoms or risk factors identified. Assessment: 08:30 General: Appears in no apparent distress. comfortable, Behavior is calm, cooperative, ph appropriate for age. Pain: Complains of pain in head. Neuro: Level of Consciousness is awake, alert, obeys commands, Oriented to person, place, time, situation, Reports dizziness, headache. Cardiovascular: Capillary refill < 3 seconds in bilateral fingers Patient's skin is warm and dry. Rhythm is regular. Respiratory: Airway is patent Respiratory effort is even, unlabored, Respiratory pattern is regular, symmetrical. GI: Reports diarrhea. Derm: Skin is pink, warm \T\ dry. Vital Signs: 06:31 BP 147 / 80; Pulse 68; Resp 17 S; Temp 97.8(O); Pulse Ox 99% on R/A; Weight 111.13 kg lg3 (R); Height 5 ft. 9 in. (R); 08:11 BP 130 / 89; Pulse 60; Resp 12; Pulse Ox 97% on R/A; rs6 09:15 BP 146 / 84; Pulse 62; Resp 18; Temp 97.9; Pulse Ox 99% on R/A; ph 06:31 Body Mass Index 36.18 (111.13 kg, 175.26 cm) lg3 ED Course: 06:04 Patient arrived in ED. jj6 06:33 Triage completed. lg3 06:34 Arm band placed on right wrist. lg3 06:58 João Barillas MD is Attending Physician. rt 07:28 Marianela Gonzales, NICOL is Primary Nurse. ph 07:53 Initial lab(s) drawn, by me, sent to lab. Inserted saline lock: 20 gauge in left jl7 antecubital area, using aseptic technique. Blood collected. Flushed with 10 mL NS. 08:00 Patient has correct armband on for positive identification. Bed in low position. Call ph light in reach. Side rails up X 1. pipeline construction inspector on. Pulse ox on. NIBP on. Door closed. Noise minimized. Warm blanket given. Pillow given. 08:13 EKG done, by ED staff. rs6 08:45 Navin Longo DO is Referral Physician. rt 09:15 No provider procedures requiring assistance completed. IV discontinued, intact, ph bleeding controlled, No redness/swelling at site. Pressure dressing applied. Administered Medications: 09:00 Drug: Ketorolac IVP 15 mg IVP once Route: IVP; Site: left antecubital; ph 09:13 Follow up: Response: No adverse reaction; Medication administered at discharge. ph 09:14 Not Given (Other Intervention Used): ns 0.9% 1000 ml IV at 1000 ml once; to be given as ph a bolus over 60 minutes Medication: 09:15 VIS not applicable for this client. ph Outcome: 08:45 Discharge ordered by . rt 09:16 Discharged to home ambulatory, ph 09:16 Condition: good 09:16 Discharge instructions given to patient, Instructed on discharge instructions, follow up and referral plans. Demonstrated understanding of instructions, follow-up care, 09:16 Patient left the ED. ph Signatures: Marianela Gonzales RN RN ph Jelani Luque RN RN jl7 Carmen Cote RN RN lg3 Priscila Argueta jj6 João Barillas MD MD rt João Ambrocio rs6
--- NOTE | 2024-05-24 08:46 | EDPHYS ---
Physician Documentation [facility] Name: Holden Morris Age: 39 yrs Sex: Male : 1985 Arrival Date: 05/24/2024 Time: 06:02 Bed 8 Private MD: ED Physician João Barillas HPI: 05/24 07:31 This 39 yrs old Black Male presents to ER via Ambulatory with complaints of Syncope. rt 07:31 Patient well-known to this department presents to the ED with dizziness starting today. rt Patient states that he had syncopal events, very brief while driving. Reports having a migraine which is similar to previous migraines as well as diarrhea. States that his throat is scratchy, reports that he has had positive sick contacts at work. Denies other acute complaints at this time, symptoms are moderate in severity, no other aggravating or alleviating factors.. Historical: - Allergies: 06:34 PENICILLINS; lg3 - Home Meds: 06:34 None [Active]; lg3 - PMHx: 06:34 SHAY; Anxiety; Asthma; autoimmune disease; GERD; Hypertension; Resolved; Migraines; lg3 - PSHx: 06:34 Cornea transplant L eye; lg3 - Immunization history:: Adult Immunizations up to date. - Infectious Disease History:: Denies. - Social history:: Smoking status: Patient denies any tobacco usage or history of. Patient/guardian denies using alcohol, street drugs. - Family history:: not pertinent. ROS: 07:31 Constitutional: Negative for fever, chills, and weight loss, Cardiovascular: Negative rt for chest pain, palpitations, and edema, MS/Extremity: Negative for injury and deformity, Skin: Negative for injury, rash, and discoloration, 07:31 ENT: Positive for sore throat, Negative for rhinorrhea, 07:31 Respiratory: Positive for 07:31 Abdomen/GI: Positive for diarrhea, Negative for abdominal pain, 07:31 Neuro: Positive for dizziness, syncope, Exam: 07:31 Constitutional: This is a well developed, well nourished patient who is awake, alert, rt and in no acute distress. Head/Face: Normocephalic, atraumatic. Chest/axilla: Normal chest wall appearance and motion. Nontender with no deformity. No lesions are appreciated. Cardiovascular: Regular rate and rhythm with a normal S1 and S2. No gallops, murmurs, or rubs. Normal PMI, no JVD. No pulse deficits. Respiratory: Lungs have equal breath sounds bilaterally, clear to auscultation and percussion. No rales, rhonchi or wheezes noted. No increased work of breathing, no retractions or nasal flaring. Abdomen/GI: Soft, non-tender, with normal bowel sounds. No distension or tympany. No guarding or rebound. No evidence of tenderness throughout. Skin: Warm, dry with normal turgor. Normal color with no rashes, no lesions, and no evidence of cellulitis. MS/ Extremity: Pulses equal, no cyanosis. Neurovascular intact. Full, normal range of motion. Neuro: Awake and alert, GCS 15, oriented to person, place, time, and situation. Cranial nerves II-XII grossly intact. Motor strength 5/5 in all extremities. Sensory grossly intact. Cerebellar exam normal. Normal gait. 08:26 ECG was reviewed by the Attending Physician. rt Vital Signs: 06:31 BP 147 / 80; Pulse 68; Resp 17 S; Temp 97.8(O); Pulse Ox 99% on R/A; Weight 111.13 kg lg3 (R); Height 5 ft. 9 in. (R); 08:11 BP 130 / 89; Pulse 60; Resp 12; Pulse Ox 97% on R/A; rs6 09:15 BP 146 / 84; Pulse 62; Resp 18; Temp 97.9; Pulse Ox 99% on R/A; ph 06:31 Body Mass Index 36.18 (111.13 kg, 175.26 cm) lg3 MDM: 07:15 Medical Screening Exam initiated rt 08:46 Differential Diagnosis: Syncope, vasovagal event, electrolyte disturbance, rt hyperglycemia, ACS, dysrhythmia. Data reviewed: vital signs, nurses notes, lab test result(s), EKG. Consideration of Admission/Observation Escalation of care including admission/observation considered. Stable vital signs, symptoms improving, unremarkable workup, does not require mission at this time.. Test considered but Not performed: CT: No head trauma, chronic migraines, low suspicion for intracranial hemorrhage, CT scan of the head not indicated. Care significantly affected by the following chronic conditions: Hypertension. Counseling: I had a detailed discussion with the patient and/or guardian regarding the historical points, exam findings, and any diagnostic results supporting the discharge/admit diagnosis, lab results, the need for outpatient follow up, Inform patient of findings of hyperglycemia, will not start patient on medications at this time but he was strongly instructed to follow-up with primary care for further diagnostic studies.. Response to treatment: the patient's symptoms have markedly improved after treatment. 05/24 07:20 Order name: Basic Metabolic Panel; Complete Time: 08:38 rt 05/24 07:20 Order name: CBC with Diff; Complete Time: 08:38 rt 05/24 07:20 Order name: Troponin HS; Complete Time: 08:38 rt 05/24 07:20 Order name: Influenza Screen (a \T\ B); Complete Time: 08:38 rt 05/24 07:20 Order name: SARS RAPID; Complete Time: 08:38 rt 05/24 07:20 Order name: Cardiac monitoring; Complete Time: 09:03 rt 05/24 07:20 Order name: EKG - Nurse/Tech; Complete Time: 09:03 rt 05/24 07:20 Order name: IV Saline Lock; Complete Time: 07:53 rt 05/24 07:20 Order name: Labs collected and sent; Complete Time: 07:53 rt 05/24 07:20 Order name: O2 Per Protocol; Complete Time: 07:54 rt 05/24 07:20 Order name: O2 Sat Monitoring; Complete Time: 07:54 rt EC:26 Rate is 70 beats/min. Rhythm is regular, Normal Sinus Rhythm with No ectopy. QRS [place] rt is Normal. [place] interval is normal. QRS interval is normal. QT interval is normal. No Q waves. No ST changes noted. Interpreted by me. Administered Medications: 09:00 Drug: Ketorolac IVP 15 mg IVP once Route: IVP; Site: left antecubital; ph 09:13 Follow up: Response: No adverse reaction; Medication administered at discharge. ph 09:14 Not Given (Other Intervention Used): ns 0.9% 1000 ml IV at 1000 ml once; to be given as ph a bolus over 60 minutes Disposition Summary: 05/24/24 08:45 Discharge Ordered Notes: Location: Home rt Problem: new rt Symptoms: have improved rt Condition: Stable rt Diagnosis - Syncope rt - Migraine rt - Hyperglycemia rt Followup: rt - With: Navin Longo, DO - When: 2 - 3 days - Reason: Discharge Instructions: - Discharge Summary Sheet rt - Migraine Headache rt - Hyperglycemia rt - Syncope rt Forms: - Work release form ph - Medication Reconciliation Form rt - Antibiotic Education rt - Prescription Opioid Use rt - Patient Portal Instructions rt - Leadership Thank You Letter rt Signatures: Dispatcher [employer] EDMarianela Ryan RN RN ph Carmen Cote RN RN lg3 João Barillas MD MD rt Corrections: (The following items were deleted from the chart) 07:21 07:21 BASIC METABOLIC PANEL+C.LAB.BRZ ordered. EDMS EDMS 07:21 07:21 CBC+H.LAB.BRZ ordered. EDMS EDMS 07:21 07:21 Troponin High Sensitivity+C.LAB.BRZ ordered. EDMS EDMS 07:21 07:21 Influenza Screen (A \T\ B)+BA.LAB.BRZ ordered. EDMS EDMS 07:21 07:21 SARS-COV-2 Antigen Rapid+I.LAB.BRZ ordered. EDMS EDMS
[2024-05-24] MEDS ORDERED: KETOROLAC 30 MG/ML INJ ONE (09:07)
[2024-05-24 09:41] VITALS: BP 146/84; TEMP 97.9; O2SAT 99
--- NOTE | 2024-05-28 12:10 | EKG ---
Test Date: 2024-05-24 Test Time: 08:05:22 Senior Security Engineer: THONY MEASUREMENT RESULTS: Intervals: Rate: 70 DC: 138 QRSD: 82 QT: 370 QTc: 399 [place]: P: 51 DC: 138 QRS: 29 T: -3 INTERPRETIVE STATEMENTS: Normal sinus rhythm with sinus arrhythmia Nonspecific T wave abnormality Abnormal ECG Compared to ECG 04/15/2024 08:30:39 T-wave abnormality now present Electronically Signed On 05-28-24 12:04:04 BI ARCHITECT by Dwayne Valentin
== END 2024-05-24 09:16 | disposition home or self-care (01) ==
LOC: ER 06:02
DX: R55 Syncope and collapse (principal); G43.909 Migraine, unspecified, not intractable, without status migrainosus; R73.9 Hyperglycemia, unspecified; I10 Essential (primary) hypertension; Z11.52 Encounter for screening for COVID-19
CPT/HCPCS: 36415; 80048; 84484; 85025; 87804; 87811; 93005; 96374; 99285

== ENCOUNTER 2024-06-02 08:24 | Emergency (ER) | payer OTHER ==
--- OUTSIDE RECORDS SUMMARY | 2024-06-02 08:26 | XMS REPORT | Continuity of Care Document ---
Author Name Unknown Address [address] [facility] [address] [id number] [facility] thconnect Address [address] [facility] [address] [place] [address] Care Team Providers Care Coffee Bar Attendant Name Role Phone PCP, PATIENT DOES NOT HAVE A Primary Care Physic josh Unavailable KO HENDRIX Attending Clinician Unavailable Ko Hendrix DO Attending Clinician KO HENDRIX Admitting Clinician Unavailable Allergies, Adverse Reactions, Alerts Allergy Name Allergy Type Status Severity Reaction(s) Onset Date Inactive Date Treating Clinician Comments Source NO KNOWN ALLERGIE S Drug Class Active [facility] Social History Social Habit Start Date Stop Date Quantity Comments Source Sexual orientation U [facility] Sex Assigned At 1985 00:00:00 1985 00:00:00 [facility] Smoking Status Start Date Stop Date Source Tobacco smoking consumption unknown [facility] Medications Ordered Medication Name Filled Medication Name Start Date Stop Date Current Medication? Ordering Clinician Indication Dosage Frequency Signature (SIG) Comments Components Source dexamethaso ne (DECADRON PHOSPHATE) injection 10 mg 2022-07 19:30: 00 06-07 18:29 :00 No 10mg 10 mg, Oral, ONCE, 1 dose, On Tue06/07/23 at 1330, Routine [facility] methylPREDN ISolone (MEDROL, COLIN,) 4 mg tablets 2022-07 00:00: 00 Yes [id number] Take by mouth SEE-INSTRU CTIONS. follow package directions [facility] benzonatate 100 mg capsule 2022-07 00:00: 00 Yes [id number] 100mg Take 1 capsule by mouth 3 (three) times daily as needed for Cough. [facility] Vital Signs Vital Name Observation Time Observation Value Comments S elvin Systolic blood pressure 2023-06-07 18:12:00 113 mm[Hg] [facility] Diastolic blood pressure 2023-06-07 18:12:00 98 mm[Hg] [facility] Heart rate 2023-06-07 18:12:00 75 /min [facility] Body temperature 2023-06-07 18:12:00 36.61 Yari [facility] Respiratory rate 2023-06-07 18:12:00 14 /min [facility] Body height 2023-06-07 18:12:[address] [facility] Body weight 2023-06-07 18:12:[address] [facility] BMI 2023-06-07 18:12:00 34.44 kg/m2 [facility] Oxygen saturation in Arterial blood by Pulse oximetry 2023-06-07 18:12:00 100 /min [facility] Procedures Procedure Date / Time Performed Performing Clinicia n Source ASSIGNMENT OF BENEFITS 2023-06-07 20:25:00 Docto r Unassigned, [place] [facility] NOTICE OF PRIVACY PRACTICES 2023-06-07 20:24:45 Doctor Unassigned, [place] [facility] XR CHEST 1 VW 2023-06-07 20:16:[address] [facility] RAPID INFLUENZA A/B 2023-06-07 18:27:00 Hamida Hendrix [facility] COVID-19 (ID NOW RAPID TESTING) 2023-06-07 18:27:00 Ko Hnedrix [facility] CONSENT/REFUSAL FOR DIAGNOSIS AND TREATMENT 2023-06-07 17:57:37 Doctor Unassigned, [place] [facility] Encounters Start Date/Time End Date/Time Encounter Type Admission Type Attending Clinicians Care Facility Care Department Encounter ID Source 2023-06-07 12:17:00 2023-06-07 14:48:00 Emergency X KO HENDRIX [facility] ERT [id number] [facility] 2023-06-07 12:17:00 2023-06-07 14:48:00 Emergency Ko Hendrix [facility] [id number] [facility]
[2024-06-02] MEDS ORDERED: NA CHLORIDE 0.9% 1,000 ML ONE (08:48)
[2024-06-02 09:12] LABS: Sqamous Epithelial <5 /HPF (None Seen); Urine Bacteria None Seen /HPF (<20); Urine Bilirubin NEGATIVE (Negative); Urine Blood Trace (Negative); Urine Clarity Clear (Clear); Urine Color Light-Yellow (Yellow); Urine Culture Reflex Order NOT NEEDED; Urine Glucose NEGATIVE (Negative); Urine Ketones NEGATIVE (Negative); Urine Microscopic Reflex YN ORDER UMIC; Urine Mucus Slight /HPF (None Seen); Urine Nitrite NEGATIVE (Negative); Urine Protein TRACE (Negative); Urine RBC <5 /HPF (None Seen); Urine Urobilinogen Normal (Normal); Urine WBC <5 /HPF (<5); Urine pH 5.5 (5.0-7.0)
[2024-06-02 09:12] LABS: Absolute Eosinophils 0.1 K/uL (0-0.5); Absolute Monocytes 0.5 K/uL (0.1-1.3); Absolute Neutrophil 5.2 K/uL (1.8-8.0); Basophils % 0.6 % (0-1.3); Eosinophils % 1.6 % (0-4.4); Hematocrit 38.2 % (39.6-49.0); Hemoglobin 11.7 g/dL (13.6-17.9); Lymphocytes % 25.7 % (15.3-44.8); MCHC 30.7 g/dL (32.0-36.0); MCV 74.8 fL (80-100); MPV 7.4 fL (7.6-11.3); Neutrophils % 66.1 % (41.7-73.7); Platelets 311 thou/uL (152-406); RBC Red Blood Cell Count 5.11 M/uL (4.33-5.43); Red Cell Distribution Width 14.1 % (12.1-15.2)
--- NOTE | 2024-06-02 09:21 | RAD REPORT ---
Stone Protocol CLINICAL INDICATION: Male, 39 years old.FLANK PAIN TECHNIQUE: CT abdomen and pelvis was performed, without IV contrast, as per department protocol using a CT stone protocol. Axial, sagittal and coronal reconstructions were obtained. One or more of the following dose reduction techniques were used: Automated exposure control, adjustment of the mA and/o r kV according to the patient size, and/or iterative reconstruction. Unless otherwise specified, incidental findings do not require dedicated imaging follow-up. [id number]. IV CONTRAST: Not administered. COMPARISON: 02/17/2024 FINDINGS: The lack of intravenous contrast limits the sensitivity of this exam for evaluation of solid visceral organs, vascular structures, and retroperitoneum. LOWER CHEST: The visualized lung bases are clear. LIVER: Normal in size and contour. No focal lesion. GALLBLADDER/BILE DUCTS: No biliary ductal dilatation.? PANCREAS: No mass, ductal dilation, or rukhsana-pancreatic fluid. SPLEEN: Normal size. No focal lesion. ADRENALS: Normal; no mass. KIDNEYS AND URETERS: Normal size and contour. No hydronephrosis. URINARY BLADDER: Normal contour. GASTROINTESTINAL TRACT: Stomach is non-dilated. Small bowel has normal course and caliber. No colonic wall thickening or pericolonic inflammatory changes. PERITONEUM: No free fluid. ABDOMINAL AORTA AND OTHER VESSELS: Normal caliber aorta and IVC. REPRODUCTIVE ORGANS: No pathologic process. MUSCULOSKELETAL: No acute or suspicious osseous abnormality. ADDITIONAL FINDINGS: None. IMPRESSION: No acute or significant abnormalities in the abdomen or pelvis, with evaluation limited by lack of IV contrast. Normal appendix.
[2024-06-02 09:37] LABS: Albumin 3.5 g/dL (3.4-5.0); Albumin/Globulin Ratio 0.9 (1.1-1.8); Bilirubin Total 0.2 mg/dL (0.2-1.0); Globulin 4.1 g/dL (2.3-3.5); Protein, Total 7.6 g/dL (6.4-8.2)
--- NOTE | 2024-06-02 09:46 | ER ---
Nurse's Notes [facility] Name: Holden Morris Age: 39 yrs Sex: Male : 1985 Arrival Date: 06/02/2024 Time: 08:24 Bed 16 Private MD: Diagnosis: Low back pain;Hyperglycemia, unspecified Presentation: 06/02 08:29 Chief complaint: Patient states: diarrhea x 1 week. Pt c/o low back pain and believes ss he may be dehydrate. Coronavirus screen: Client denies travel out of the [place] in the last 14 days. Ebola Screen: Patient denies exposure to infectious person. Patient denies travel to an Ebola-affected area in the 21 days before illness onset. Initial Sepsis Screen: Does the patient meet any 2 criteria? No. Patient's initial sepsis screen is negative. Does the patient have a suspected source of infection? No. Patient's initial sepsis screen is negative. Risk Assessment: Do you want to hurt yourself or someone else? Patient reports no desire to harm self or others. Onset of symptoms was May 26, 2024. 08:29 Acuity: STONE 3 ss 08:29 Method Of Arrival: Ambulatory ss Historical: - Allergies: 08:31 PENICILLINS; ss - PMHx: 08:31 SHAY; Anxiety; Asthma; autoimmune disease; GERD; Hypertension; Resolved; Migraines; ss - PSHx: 08:31 Cornea transplant L eye; ss - Immunization history:: Adult Immunizations unknown. - Infectious Disease History:: Denies. - Family history:: not pertinent. - Social history:: Smoking status: Patient denies any tobacco usage or history of. Screenin:54 [facility] ED Fall Risk Assessment (Adult) History of falling in the last 3 months, db including since admission No falls in past 3 months (0 pts) Confusion or Disorientation No (0 pts) Intoxicated or Sedated No (0 pts) Impaired Gait No (0 pts) Mobility Assist Device Used No (0 pt) Altered Elimination No (0 pt) Score/Fall Risk Level 0 - 2 = Low Risk Oriented to surroundings, Maintained a safe environment. Abuse screen: Denies threats or abuse. Denies injuries from another. Nutritional screening: No deficits noted. Tuberculosis screening: No symptoms or risk factors identified. Assessment: 09:54 Reassessment: Patient appears in no apparent distress at this time. Patient and/or db family updated on plan of care and expected duration. Pain level reassessed. Patient is alert, oriented x 3, equal unlabored respirations, skin warm/dry/pink. General: Appears in no apparent distress. comfortable, Behavior is calm, cooperative. Pain: Complains of pain in right low back and right mid back and left mid back and left low back. Neuro: Level of Consciousness is awake, alert, obeys commands, Oriented to person, place, time, situation, Speech is normal, Facial symmetry appears normal. Respiratory: Airway is patent Respiratory effort is even, unlabored, Respiratory pattern is regular, symmetrical. GI: Abdomen is. Vital Signs: 08:36 BP 146 / 79; Pulse 70; Resp 16; Temp 98(TE); Pulse Ox 98% on R/A; Weight 99.79 kg; ss Height 5 ft. 8 in. ; Pain 9/10; 08:36 Body Mass Index 33.45 (99.79 kg, 172.72 cm) ss 08:36 Pain Scale: Adult ss ED Course: 08:27 Patient arrived in ED. mr 08:31 Triage completed. ss 08:31 Arm band placed on right wrist. ss 08:35 Aidan Carranza MD is Attending Physician. lorna 08:46 Yaa Alvarez, NICOL is Primary Nurse. db 09:18 CT Stone Protocol In Process Unspecified. EDMS 09:45 Shaunna Gaspar MD is Referral Physician. lorna 09:56 Patient has correct armband on for positive identification. Bed in low position. Call db light in reach. Side rails up X 1. Provided Education on: DISCHARGE AND FOLLOWUP. Pulse ox on. NIBP on. Warm blanket given. Pillow given. 09:56 No provider procedures requiring assistance completed. IV discontinued, intact, db bleeding controlled, No redness/swelling at site. Administered Medications: 09:00 Drug: NS 0.9% IV 1000 ml IV at 1 bolus Per protocol; to be given as a bolus over 60 db minutes Route: IV; Rate: 1 bolus; Site: left antecubital; 09:57 Follow up: Response: No adverse reaction; IV Status: Completed infusion; IV Intake: db 1000ml Medication: 09:54 VIS not applicable for this client. db Intake: 09:57 IV: 1000ml; Total: 1000ml. db Outcome: 09:45 Discharge ordered by . lorna 09:56 Discharged to home ambulatory, db 09:56 Condition: stable 09:56 Discharge instructions given to patient, Instructed on discharge instructions, follow up and referral plans. Prescriptions given X 2, 09:58 Patient left the ED. db Signatures: Dispatcher [employer] EDAidan De La Garza MD MD cha Rivera, Anika, Reg Reg mr Janie Patterson, NICOL RN Yaa Alvarez RN RN db
--- NOTE | 2024-06-02 09:46 | EDPHYS ---
Physician Documentation [facility] Name: Holden Morris Age: 39 yrs Sex: Male : 1985 Arrival Date: 06/02/2024 Time: 08:24 Bed 16 Private MD: EDUARDO Physician Aidan Carranza HPI: 06/02 09:21 This 39 yrs old Black Male presents to ER via Ambulatory with complaints of Back Pain. lorna 09:21 The patient presents with pain that is acute, with no known mechanism of injury. The lorna symptoms are located in the left low back, left mid back, right mid back and right low back. Onset: The symptoms/episode began/occurred 2 day(s) ago. The pain does not radiate. Associated signs and symptoms: The patient has no apparent associated signs or symptoms. The problem was sustained from unknown cause. Modifying factors: The patient symptoms are alleviated by nothing, the patient symptoms are aggravated by movement. Severity of symptoms: At their worst the symptoms were moderate, in the emergency department the symptoms are unchanged. The patient has experienced similar episodes in the past, a few times. Historical: - Allergies: 08:31 PENICILLINS; ss - PMHx: 08:31 SHAY; Anxiety; Asthma; autoimmune disease; GERD; Hypertension; Resolved; Migraines; ss - PSHx: 08:31 Cornea transplant L eye; ss - Immunization history:: Adult Immunizations unknown. - Infectious Disease History:: Denies. - Family history:: not pertinent. - Social history:: Smoking status: Patient denies any tobacco usage or history of. ROS: 09:21 Constitutional: Negative for fever, chills, and weight loss, Eyes: Negative for injury, lorna pain, redness, and discharge, ENT: Negative for injury, pain, and discharge, Neck: Negative for injury, pain, and swelling, Cardiovascular: Negative for chest pain, palpitations, and edema, Respiratory: Negative for shortness of breath, cough, wheezing, and pleuritic chest pain, Abdomen/GI: Negative for abdominal pain, nausea, vomiting, diarrhea, and constipation, : Negative for injury, bleeding, discharge, and swelling, MS/Extremity: Negative for injury and deformity, Skin: Negative for injury, rash, and discoloration, Neuro: Negative for headache, weakness, numbness, tingling, and seizure, Psych: Negative for depression, anxiety, suicide ideation, homicidal ideation, and hallucinations, Allergy/Immunology: Negative for hives, rash, and allergies, Endocrine: Negative for neck swelling, polydipsia, polyuria, polyphagia, and marked weight changes, Hematologic/Lymphatic: Negative for swollen nodes, abnormal bleeding, and unusual bruising, :21 Back: Positive for pain with movement, flank pain, Exam: :21 Constitutional: This is a well developed, well nourished patient who is awake, alert, lorna and in no acute distress. Head/Face: Normocephalic, atraumatic. Eyes: Pupils equal round and reactive to light, extra-ocular motions intact. Lids and lashes normal. Conjunctiva and sclera are non-icteric and not injected. Cornea within normal limits. Periorbital areas with no swelling, redness, or edema. ENT: Nares patent. No nasal discharge, no septal abnormalities noted. Tympanic membranes are normal and external auditory canals are clear. Oropharynx with no redness, swelling, or masses, exudates, or evidence of obstruction, uvula midline. Mucous membranes moist. Neck: Trachea midline, no thyromegaly or masses palpated, and no cervical lymphadenopathy. Supple, full range of motion without nuchal rigidity, or vertebral point tenderness. No Meningismus. Chest/axilla: Normal chest wall appearance and motion. Nontender with no deformity. No lesions are appreciated. Cardiovascular: Regular rate and rhythm with a normal S1 and S2. No gallops, murmurs, or rubs. Normal PMI, no JVD. No pulse deficits. Respiratory: Lungs have equal breath sounds bilaterally, clear to auscultation and percussion. No rales, rhonchi or wheezes noted. No increased work of breathing, no retractions or nasal flaring. Abdomen/GI: Soft, non-tender, with normal bowel sounds. No distension or tympany. No guarding or rebound. No evidence of tenderness throughout. Male : Normal genitalia with no discharge or lesions. Skin: Warm, dry with normal turgor. Normal color with no rashes, no lesions, and no evidence of cellulitis. MS/ Extremity: Pulses equal, no cyanosis. Neurovascular intact. Full, normal range of motion. Neuro: Awake and alert, GCS 15, oriented to person, place, time, and situation. Cranial nerves II-XII grossly intact. Motor strength 5/5 in all extremities. Sensory grossly intact. Cerebellar exam normal. Normal gait. Psych: Awake, alert, with orientation to person, place and time. Behavior, mood, and affect are within normal limits. 09:21 Back: pain, that is mild, ROM is normal, normal spinal alignment noted, CVA tenderness, that is mild, is noted bilaterally, 09:21 : CVA tenderness, noted bilaterally, Male external genitalia: normal, Bladder: is normal, non-distended, Sexual behavior: the patient is sexually active, and reports a single partner, Vital Signs: 08:36 BP 146 / 79; Pulse 70; Resp 16; Temp 98(TE); Pulse Ox 98% on R/A; Weight 99.79 kg; ss Height 5 ft. 8 in. ; Pain 9/10; 08:36 Body Mass Index 33.45 (99.79 kg, 172.72 cm) 08:36 Pain Scale: Adult ss MDM: 08:35 Medical Screening Exam initiated lorna 09:24 Differential diagnosis: Fatigue Hydronephrosis Obesity Pyelonephritis Renal Infarction lorna ruptured disc, Scoliosis sprain, Ureterolithiasis vertebral fracture. Data reviewed: vital signs, nurses notes, lab test result(s), radiologic studies, CT scan. Consideration of Admission/Observation Escalation of care including admission/observation considered. I considered the following discharge prescriptions or medication management in the emergency department Medications were administered in the Emergency Department. See MAR. Independent interpretation of the following test(s) in the Emergency Department CT Scan: My interpretation is ct stone. Care significantly affected by the following chronic conditions: Hypertension, Obesity, Chronic Kidney Disease, shay, asthma, gerd, autoimmune, anxiety. 06/02 08:41 Order name: CBC with Diff; Complete Time: 09:21 [facility] 06/02 08:41 Order name: CMP; Complete Time: :45 [facility] 06/02 08:41 Order name: Lipase; Complete Time: :45 [facility] 06/02 08:41 Order name: Urinalysis w/ reflexes; Complete Time: 09:21 [facility] 06/02 08:41 Order name: UDS [facility] 06/02 08:41 Order name: CT Stone Protocol; Complete Time: :45 [facility] 06/02 08:41 Order name: IV Saline Lock; Complete Time: 09:00 [facility] 06/02 08:41 Order name: Labs collected and sent; Complete Time: 09:00 lorna Administered Medications: 09:00 Drug: NS 0.9% IV 1000 ml IV at 1 bolus Per protocol; to be given as a bolus over 60 db minutes Route: IV; Rate: 1 bolus; Site: left antecubital; 09:57 Follow up: Response: No adverse reaction; IV Status: Completed infusion; IV Intake: db 1000ml Disposition Summary: 06/02/24 09:45 Discharge Ordered Notes: Location: Home [facility] Problem: new lorna Symptoms: have improved lorna Condition: Stable lorna Diagnosis - Low back pain lorna - Hyperglycemia, unspecified lorna Followup: lorna - With: Private Physician - When: 2 - 3 days - Reason: Recheck today's complaints, Continuance of care, Re-evaluation by your physician Followup: lorna - With: Shaunna Gaspar MD - When: 2 - 3 days - Reason: Recheck today's complaints, Re-evaluation by your physician Discharge Instructions: - Discharge Summary Sheet lorna - Acute Back Pain, Adult lorna - Hyperglycemia lorna - Musculoskeletal Pain [facility] - Diabetes Mellitus and Nutrition, Adult [facility] Forms: - Medication Reconciliation Form lorna - Antibiotic Education lorna - Prescription Opioid Use lorna - Patient Portal Instructions [facility] - Leadership Thank You Letter [facility] Prescriptions: - Tylenol 325 mg Oral tablet - take 2 tablets ORAL route every 6 hours as needed; 40 tablet; Refills: 0, [facility] Product Selection Permitted - methocarbamol 750 mg Oral tablet - take 1 tablet ORAL route every 6 hours; 28 tablet; Refills: 0, Product [facility] Selection Permitted Signatures: Dispatcher [employer] EDAidan De La Garza MD MD lorna Janie Patterson RN RN Yaa Alvarez RN RN db Corrections: (The following items were deleted from the chart) 08:41 08:41 CBC+H.LAB.BRZ ordered. EDMS EDMS 08:41 08:41 COMPREHENSIVE METABOLIC PANEL+C.LAB.BRZ ordered. EDMS EDMS 08:41 08:41 LIPASE+C.LAB.BRZ ordered. EDMS EDMS 08:41 08:41 Urinalysis+U.LAB.BRZ ordered. EDMS EDMS 08:41 08:41 URINE DRUG SCREEN+UC.LAB.BRZ ordered. EDMS EDMS 08:41 08:41 Stone Protocol+CT.RAD.BRZ ordered. EDMS EDMS
[2024-06-02 10:07] LABS: Barbiturates NEGATIVE (NEGATIVE); Benzodiazepines NEGATIVE (NEGATIVE); Cocaine NEGATIVE (NEGATIVE); METHAMPHETAM NEGATIVE (NEGATIVE); Methadone NEGATIVE (NEGATIVE); Opiates NEGATIVE (NEGATIVE); Phencyclidine NEGATIVE (NEGATIVE); THC Cannibis NEGATIVE (NEGATIVE)
[2024-06-02 10:53] VITALS: BP 146/79; TEMP 98; O2SAT 98
== END 2024-06-02 09:58 | disposition home or self-care (01) ==
LOC: ER 08:24
DX: M54.50 Low back pain, unspecified (principal); R73.9 Hyperglycemia, unspecified
CPT/HCPCS: 85025; 81001; 36415; 83690; 80053; 80307; 76377; 74176; 96360; 99284; J7030

== ENCOUNTER 2024-06-08 06:31 | Emergency (ER) | payer OTHER ==
--- OUTSIDE RECORDS SUMMARY | 2024-06-08 06:34 | XMS REPORT | Continuity of Care Document ---
Author Name Unknown Address [address] [facility] [address] [id number] [facility] thconnect Address [address] [facility] [address] [place] [address] Care Team Providers Care Real Estate Executive Assistant Name Role Phone PCP, PATIENT DOES NOT HAVE A Primary Care Physic josh Unavailable KO HENDRIX Attending Clinician Unavailable Ko Hendrix DO Attending Clinician KO HENDRIX Admitting Clinician Unavailable Allergies, Adverse Reactions, Alerts Allergy Name Allergy Type Status Severity Reaction(s) Onset Date Inactive Date Treating Clinician Comments Source NO KNOWN ALLERGIE S Drug Class Active [facility] Social History Social Habit Start Date Stop Date Quantity Comments Source Sexual orientation U [facility] Sex Assigned At 1985 00:00:00 1985 00:00:00 [facility] Smoking Status Start Date Stop Date Source Tobacco smoking consumption unknown [facility] Medications Ordered Medication Name Filled Medication Name Start Date Stop Date Current Medication? Ordering Clinician Indication Dosage Frequency Signature (SIG) Comments Components Source dexamethaso ne (DECADRON PHOSPHATE) injection 10 mg 2022-07 19:30: 00 06-07 18:29 :00 No 10mg 10 mg, Oral, ONCE, 1 dose, On Tue06/07/23 at 1330, Routine [facility] methylPREDN ISolone (MEDROL, COLIN,) 4 mg tablets 2022-07 00:00: 00 Yes [id number] Take by mouth SEE-INSTRU CTIONS. follow package directions [facility] benzonatate 100 mg capsule 2022-07 00:00: 00 Yes [id number] 100mg Take 1 capsule by mouth 3 (three) times daily as needed for Cough. [facility] Vital Signs Vital Name Observation Time Observation Value Comments S elvin Systolic blood pressure 2023-06-07 18:12:00 113 mm[Hg] [facility] Diastolic blood pressure 2023-06-07 18:12:00 98 mm[Hg] [facility] Heart rate 2023-06-07 18:12:00 75 /min [facility] Body temperature 2023-06-07 18:12:00 36.61 Yari [facility] Respiratory rate 2023-06-07 18:12:00 14 /min [facility] Body height 2023-06-07 18:12:00 177.8 cm [facility] Body weight 2023-06-07 18:12:00 108.863 kg [facility] BMI 2023-06-07 18:12:00 34.44 kg/m2 [facility] Oxygen saturation in Arterial blood by Pulse oximetry 2023-06-07 18:12:00 100 /min [facility] Procedures Procedure Date / Time Performed Performing Clinicia n Source ASSIGNMENT OF BENEFITS 2023-06-07 20:25:00 Docto r Unassigned, [place] [facility] NOTICE OF PRIVACY PRACTICES 2023-06-07 20:24:45 Doctor Unassigned, [place] [facility] XR CHEST 1 VW 2023-06-07 20:16:56 Ko Hendrix [facility] RAPID INFLUENZA A/B 2023-06-07 18:27:00 Hamida Hendrix [facility] COVID-19 (ID NOW RAPID TESTING) 2023-06-07 18:27:00 Ko Hendrix [facility] CONSENT/REFUSAL FOR DIAGNOSIS AND TREATMENT 2023-06-07 17:57:37 Doctor Unassigned, [place] [facility] Encounters Start Date/Time End Date/Time Encounter Type Admission Type Attending Clinicians Care Facility Care Department Encounter ID Source 2023-06-07 12:17:00 2023-06-07 14:48:00 Emergency X KO HENDRIX [facility] ERT [id number] [facility] 2023-06-07 12:17:00 2023-06-07 14:48:00 Emergency Ko Hendrix [facility] [id number] [facility]
[2024-06-08 07:20] LABS: Absolute Eosinophils 0.2 K/uL (0-0.5); Absolute Lymphocytes (CBC) 2.3 K/uL (0.7-4.9); Absolute Monocytes 0.5 K/uL (0.1-1.3); Absolute Neutrophil 3.7 K/uL (1.8-8.0); Basophils % 0.5 % (0-1.3); Eosinophils % 2.7 % (0-4.4); Hematocrit 36.4 % (39.6-49.0); Hemoglobin 11.5 g/dL (13.6-17.9); Lymphocytes % 33.7 % (15.3-44.8); MCH 23.2 pg (27.0-35.0); MCHC 31.5 g/dL (32.0-36.0); MCV 73.8 fL (80-100); MPV 7.3 fL (7.6-11.3); Monocytes % 7.7 % (3.3-12.3); Neutrophils % 55.4 % (41.7-73.7); Nucleated Red Blood Cells % 0.1 % (0-0); Platelets 325 thou/uL (152-406); RBC Red Blood Cell Count 4.93 M/uL (4.33-5.43); Red Cell Distribution Width 14.1 % (12.1-15.2)
[2024-06-08 07:21] LABS: PT Prothrombin Time 12.3 SECONDS (9.4-12.5); Protime INR 1.1
[2024-06-08 07:31] LABS: ALT/SGPT 25 U/L (16-61); AST/SGOT 20 U/L (15-37); Albumin 3.3 g/dL (3.4-5.0); Albumin/Globulin Ratio 0.8 (1.1-1.8); Alkaline Phosphatase 78 U/L (45-117); Anion Gap 9.9 mEq/L (5.0-15.0); BUN Blood Urea Nitrogen 20 mg/dL (7-18); Bicarbonate 25 mEq/L (21-32); Bilirubin Total 0.3 mg/dL (0.2-1.0); Globulin 4.3 g/dL (2.3-3.5); Glomerular Filtration Rate 89 ml/min (=/>90); Glucose Level 218 mg/dL (74-106); Potassium 3.9 mEq/L (3.5-5.1); Protein, Total 7.6 g/dL (6.4-8.2); Sodium Level 133 mEq/L (136-145); Troponin High Sensitivity 4.5 pg/mL (<58.9)
[2024-06-08] MEDS ORDERED: NA CHLORIDE 0.9% 1,000 ML ONE (07:35)
[2024-06-08 07:41] LABS: Bilirubin Direct < 0.2 mg/dL (0-0.2); Bilirubin Indirect, Calculated 0.1 mg/dL (0.2-0.8); NT PRO-BNP < 5 pg/mL (<125)
--- NOTE | 2024-06-08 08:13 | RAD REPORT ---
EXAMINATION: ONE VIEW CHEST XR CLINICAL INDICATION: Male, 39 years old.,CHEST PAIN TECHNIQUE: Frontal chest projection is submitted. Examination is limited by patient positioning and t echnique. COMPARISON: 04/15/2024. FINDINGS: The lungs are hypoinflated but appear clear. No pneumothorax or sizable effusion. The heart is again at the upper limit of normal in size. Mediastinal contours are unremarkable. IMPRESSION: No acute intrathoracic abnormalities.
--- NOTE | 2024-06-08 08:28 | ER ---
Nurse's Notes [facility] Name: Holden Morris Age: 39 yrs Sex: Male : 1985 Arrival Date: 06/08/2024 Time: 06:31 Bed 7 Private MD: Diagnosis: Headache;Vomiting;Chest pain, unspecified;Hyperglycemia, unspecified Presentation: 06/08 06:40 Chief complaint: Patient states: NAUSEA, VOMITING, DIARRHEA, BODY ACHES AND CHEST PAIN. ha1 06:40 Coronavirus screen: Client denies travel out of the [place] in the last 14 days. Ebola ha1 Screen: No symptoms or risks identified at this time. Initial Sepsis Screen: Does the patient meet any 2 criteria? No. Patient's initial sepsis screen is negative. Does the patient have a suspected source of infection? No. Patient's initial sepsis screen is negative. Risk Assessment: Do you want to hurt yourself or someone else? Patient reports no desire to harm self or others. Onset of symptoms was June 08, 2024. 06:40 Method Of Arrival: Ambulatory ha1 06:40 Acuity: STONE 2 ha1 Triage Assessment: 06:40 General: Appears uncomfortable, Behavior is cooperative. Pain: Complains of pain in ha1 BODY ACHES, HEADACHE, AND CHEST PAIN Pain does not radiate. Pain currently is 9 out of 10 on a pain scale. Quality of pain is described as aching. Neuro: Level of Consciousness is awake, alert, obeys commands, Oriented to person, place, time, situation. Cardiovascular: Capillary refill < 3 seconds Patient's skin is warm and dry. Cardiovascular: Reports chest pain. Respiratory: Airway is patent Respiratory effort is even, unlabored, Respiratory pattern is regular, symmetrical. GI: Abdomen is round non-distended, Reports lower abdominal pain, upper abdominal pain, diarrhea, nausea, vomiting. Derm: Skin is pink, warm \T\ dry. Historical: - Allergies: 06:51 PENICILLINS; ha1 - PMHx: 06:51 SHAY; Anxiety; Asthma; autoimmune disease; GERD; Hypertension; Resolved; Migraines; ha1 - PSHx: 06:51 Cornea transplant L eye; ha1 - Immunization history:: Adult Immunizations up to date. - Infectious Disease History:: Denies. - Social history:: Smoking status: Patient denies any tobacco usage or history of. Screenin:07 [facility] ED Fall Risk Assessment (Adult) History of falling in the last 3 months, iw including since admission No falls in past 3 months (0 pts) Confusion or Disorientation No (0 pts) Intoxicated or Sedated No (0 pts) Impaired Gait No (0 pts) Mobility Assist Device Used No (0 pt) Altered Elimination No (0 pt) Score/Fall Risk Level 0 - 2 = Low Risk Oriented to surroundings, Maintained a safe environment. Abuse screen: Denies threats or abuse. Nutritional screening: No deficits noted. Tuberculosis screening: No symptoms or risk factors identified. Assessment: 07:06 General: Appears in no apparent distress. Behavior is calm, cooperative. Pain: iw Complains of pain in back and chest Pain currently is 9 out of 10 on a pain scale. Neuro: Level of Consciousness is awake, alert, obeys commands, Oriented to person, place, time, situation, Moves all extremities. Full function. Cardiovascular: Patient's skin is warm and dry. Respiratory: Respiratory effort is even, unlabored, Respiratory pattern is regular. GI: Reports diarrhea, nausea. Derm: Skin is intact, is healthy with good turgor. Musculoskeletal: Range of motion: intact in all extremities. Vital Signs: 06:40 BP 150 / 86; Pulse 65; Resp 17 S; Temp 98.7(O); Pulse Ox 99% on R/A; Weight 97.52 kg; ha1 Height 5 ft. 8 in. ; 06:40 Body Mass Index 32.69 (97.52 kg, 172.72 cm) ha1 Malina Coma Score: 08:03 Eye Response: spontaneous(4). Motor Response: obeys commands(6). Verbal Response: lorna oriented(5). Total: 15. 08:05 Eye Response: spontaneous(4). Motor Response: obeys commands(6). Verbal Response: lorna oriented(5). Total: 15. ED Course: 06:34 Patient arrived in ED. [id number] 06:51 Triage completed. ha1 06:58 Keshia Vernon, RN is Primary Nurse. iw 07:07 Patient has correct armband on for positive identification. Provided Education on: iw labs. Client placed on continuous cardiac and pulse oximetry monitoring. NIBP monitoring applied. 07:07 Inserted saline lock: 22 gauge in left antecubital area, using aseptic technique. Blood iw collected. Flushed with 10 mL NS. 07:17 Aidan Carranza MD is Attending Physician. [facility] 07:34 XRAY Chest (1 view) In Process Unspecified. EDID 08:34 No provider procedures requiring assistance completed. IV discontinued, intact. iw Administered Medications: 07:42 Drug: NS 0.9% IV 1000 ml IV at 1 bolus Per protocol; to be given as a bolus over 60 iw minutes Route: IV; Rate: 1 bolus; Site: left antecubital; 08:35 Follow up: IV Status: Completed infusion iw 08:33 Drug: Ketorolac IVP 30 mg IVP once Route: IVP; Site: left antecubital; iw 08:35 Follow up: Response: No adverse reaction; Medication administered at discharge. iw 08:33 Drug: Ondansetron IVP 4 mg IVP once; over 2 minutes Route: IVP; Site: left antecubital; iw 08:35 Follow up: Response: No adverse reaction; Medication administered at discharge. iw Outcome: 08:27 Discharge ordered by . [facility] 08:34 Discharged to home ambulatory, iw 08:34 Condition: stable 08:34 Discharge instructions given to patient, Instructed on discharge instructions, follow up and referral plans. medication usage, Demonstrated understanding of instructions, follow-up care, medications, Prescriptions given X 2, 08:35 Patient left the ED. iw Signatures: Dispatcher [employer] EDID Aidan Carranza MD MD cha Williams, Irene, RN RN iw Priscila Argueta [id number] Monica Elliott RN RN ha1
--- NOTE | 2024-06-08 08:28 | EDPHYS ---
Physician Documentation [facility] Name: Holden Morris Age: 39 yrs Sex: Male : 1985 Arrival Date: 06/08/2024 Time: 06:31 Bed 7 Private MD: EDUARDO Physician Aidan Carranza HPI: 06/08 08:02 This 39 yrs old Black Male presents to ER via Ambulatory with complaints of Headache, lorna Diarrhea, Abdominal Pain. 08:02 The patient complains of pain to the forehead. The patient describes the headache as lorna aching. Onset: The symptoms/episode began/occurred just prior to arrival, this morning. Associated signs and symptoms: Pertinent positives: vomiting. Severity of symptoms: At its worst the pain was moderate, in the emergency department the pain has resolved. Historical: - Allergies: 06:51 PENICILLINS; ha1 - PMHx: 06:51 SHAY; Anxiety; Asthma; autoimmune disease; GERD; Hypertension; Resolved; Migraines; ha1 - PSHx: 06:51 Cornea transplant L eye; ha1 - Immunization history:: Adult Immunizations up to date. - Infectious Disease History:: Denies. - Social history:: Smoking status: Patient denies any tobacco usage or history of. ROS: 08:03 Constitutional: Negative for fever, chills, and weight loss, Eyes: Negative for injury, lorna pain, redness, and discharge, ENT: Negative for injury, pain, and discharge, Neck: Negative for injury, pain, and swelling, Respiratory: Negative for shortness of breath, cough, wheezing, and pleuritic chest pain, Back: Negative for injury and pain, : Negative for injury, bleeding, discharge, and swelling, MS/Extremity: Negative for injury and deformity, Skin: Negative for injury, rash, and discoloration, Neuro: Negative for headache, weakness, numbness, tingling, and seizure, Psych: Negative for depression, anxiety, suicide ideation, homicidal ideation, and hallucinations, Allergy/Immunology: Negative for hives, rash, and allergies, Endocrine: Negative for neck swelling, polydipsia, polyuria, polyphagia, and marked weight changes, Hematologic/Lymphatic: Negative for swollen nodes, abnormal bleeding, and unusual bruising, 08:03 Cardiovascular: Positive for chest pain, of the chest, 08:03 Abdomen/GI: Positive for abdominal pain, nausea and vomiting, diarrhea, abdominal cramps, Exam: 08:03 Constitutional: This is a well developed, well nourished patient who is awake, alert, lorna and in no acute distress. Head/Face: Normocephalic, atraumatic. Eyes: Pupils equal round and reactive to light, extra-ocular motions intact. Lids and lashes normal. Conjunctiva and sclera are non-icteric and not injected. Cornea within normal limits. Periorbital areas with no swelling, redness, or edema. ENT: Nares patent. No nasal discharge, no septal abnormalities noted. Tympanic membranes are normal and external auditory canals are clear. Oropharynx with no redness, swelling, or masses, exudates, or evidence of obstruction, uvula midline. Mucous membranes moist. Neck: Trachea midline, no thyromegaly or masses palpated, and no cervical lymphadenopathy. Supple, full range of motion without nuchal rigidity, or vertebral point tenderness. No Meningismus. Chest/axilla: Normal chest wall appearance and motion. Nontender with no deformity. No lesions are appreciated. Cardiovascular: Regular rate and rhythm with a normal S1 and S2. No gallops, murmurs, or rubs. Normal PMI, no JVD. No pulse deficits. Respiratory: Lungs have equal breath sounds bilaterally, clear to auscultation and percussion. No rales, rhonchi or wheezes noted. No increased work of breathing, no retractions or nasal flaring. Abdomen/GI: Soft, non-tender, with normal bowel sounds. No distension or tympany. No guarding or rebound. No evidence of tenderness throughout. Back: No spinal tenderness. No costovertebral tenderness. Full range of motion. Male : Normal genitalia with no discharge or lesions. Skin: Warm, dry with normal turgor. Normal color with no rashes, no lesions, and no evidence of cellulitis. MS/ Extremity: Pulses equal, no cyanosis. Neurovascular intact. Full, normal range of motion., bilateral aka Neuro: Awake and alert, GCS 15, oriented to person, place, time, and situation. Cranial nerves II-XII grossly intact. Motor strength 5/5 in all extremities. Sensory grossly intact. Cerebellar exam normal. Normal gait. Psych: Awake, alert, with orientation to person, place and time. Behavior, mood, and affect are within normal limits. 08:03 ECG was reviewed by the Attending Physician. 08:03 Musculoskeletal/extremity: ROM: no acute changes, Circulation is intact in all extremities. Sensation intact. Compartment Syndrome exam of affected extremity: is normal. Weight bearing: able to fully bear weight, DVT Exam: No signs of deep vein thrombosis. no pain, no swelling, no tenderness, negative Homans' sign noted on exam, no appreciated bluish discoloration, no erythema, no increased warmth, Vital Signs: 06:40 BP 150 / 86; Pulse 65; Resp 17 S; Temp 98.7(O); Pulse Ox 99% on R/A; Weight 97.52 kg; ha1 Height 5 ft. 8 in. ; 06:40 Body Mass Index 32.69 (97.52 kg, 172.72 cm) ha1 [place] Coma Score: 08:03 Eye Response: spontaneous(4). Motor Response: obeys commands(6). Verbal Response: lorna oriented(5). Total: 15. 08:05 Eye Response: spontaneous(4). Motor Response: obeys commands(6). Verbal Response: lorna oriented(5). Total: 15. MDM: 07:17 Medical Screening Exam initiated lorna 08:05 Differential diagnosis: cluster headache, hypoglycemia, diverticulitis, gastritis, lorna non-specific abd pain, Peptic Ulcer Disease. Data reviewed: vital signs, nurses notes, lab test result(s), EKG, radiologic studies, plain films. Consideration of Admission/Observation Escalation of care including admission/observation considered. I considered the following discharge prescriptions or medication management in the emergency department Medications were administered in the Emergency Department. See MAR. Independent interpretation of the following test(s) in the Emergency Department EKG: See my EKG interpretation above. Test considered but Not performed: Ultrasound no abd usg. Care significantly affected by the following chronic conditions: Hypertension, Obesity, shay, autoimmune, migraine, asthma, anxiety. 06/08 06:53 Order name: Basic Metabolic Panel; Complete Time: 08: sp4 06/08 06:53 Order name: CBC with Diff; Complete Time: 08: sp4 06/08 06:53 Order name: LFT's; Complete Time: 08: sp4 06/08 06:53 Order name: Magnesium; Complete Time: 08: sp4 06/08 06:53 Order name: NT PRO-BNP; Complete Time: 08:26 sp4 06/08 06:53 Order name: PT-INR; Complete Time: 08:26 sp4 06/08 06:53 Order name: Troponin HS; Complete Time: 08:26 sp4 06/08 07:18 Order name: Lipase; Complete Time: 08:26 lorna 06/08 06:53 Order name: XRAY Chest (1 view); Complete Time: 08:26 sp4 06/08 06:53 Order name: Cardiac monitoring; Complete Time: 07:29 sp4 06/08 06:53 Order name: EKG - Nurse/Tech; Complete Time: 07:08 sp4 06/08 06:53 Order name: IV Saline Lock; Complete Time: 07:06 sp4 06/08 06:53 Order name: Labs collected and sent; Complete Time: 07:06 sp4 06/08 06:53 Order name: O2 Per Protocol; Complete Time: 07:06 sp4 06/08 06:53 Order name: O2 Sat Monitoring; Complete Time: 07: sp4 EC:03 Rate is 75 beats/min. Rhythm is regular. QRS [place] is Normal. [place] interval is normal. QRS lorna interval is normal. QT interval is normal. No Q waves. T waves are Normal. No ST changes noted. Clinical impression: Normal ECG, NSR w/ Non-specific ST/T Changes, and No evidence of ischemia. Interpreted by me. Reviewed by me. Administered Medications: 07:42 Drug: NS 0.9% IV 1000 ml IV at 1 bolus Per protocol; to be given as a bolus over 60 iw minutes Route: IV; Rate: 1 bolus; Site: left antecubital; 08:35 Follow up: IV Status: Completed infusion iw 08:33 Drug: Ketorolac IVP 30 mg IVP once Route: IVP; Site: left antecubital; iw 08:35 Follow up: Response: No adverse reaction; Medication administered at discharge. iw 08:33 Drug: Ondansetron IVP 4 mg IVP once; over 2 minutes Route: IVP; Site: left antecubital; iw 08:35 Follow up: Response: No adverse reaction; Medication administered at discharge. iw Disposition Summary: 06/08/24 08:27 Discharge Ordered Notes: Location: Home lorna Problem: new lorna Symptoms: have improved lorna Condition: Stable lorna Diagnosis - Headache lorna - Vomiting lorna - Chest pain, unspecified lorna - Hyperglycemia, unspecified lorna Followup: lorna - With: Private Physician - When: 2 - 3 days - Reason: Recheck today's complaints, Continuance of care, Re-evaluation by your physician Discharge Instructions: - Discharge Summary Sheet lorna - Nonspecific Chest Pain, Adult lorna - General Headache Without Cause lorna - Nonspecific Chest Pain, Adult, [id number] lorna - Aspirin and Your Heart lorna - General Headache Without Cause, [id number] lorna Forms: - Medication Reconciliation Form lorna - Antibiotic Education lorna - Prescription Opioid Use lorna - Patient Portal Instructions lorna - Leadership Thank You Letter lorna - Work release form hb Prescriptions: - ondansetron 4 mg Oral Tablet,disintegrating - take 1 tablet ORAL route every 6-8 hours for 5 days; 20 tablet; Refills: 0, lorna Product Selection Permitted - Pepcid 20 mg Oral tablet - take 1 tablet ORAL route every 12 hours for 21 days; 42 tablet; Refills: 0, [facility] Product Selection Permitted Signatures: Dispatcher [employer] EDMS Aidan Carranza MD MD cha Williams, Irene, RN RN iw Ayala, Heidy, RN RN ha1 Arthur Gomez MD MD sp4 Corrections: (The following items were deleted from the chart) 06:54 06:54 BASIC METABOLIC PANEL+C.LAB.BRZ ordered. EDMS EDMS 06:54 06:54 CBC+H.LAB.BRZ ordered. EDMS EDMS 06:54 06:54 HEPATIC FUNCTION+C.LAB.BRZ ordered. EDMS EDMS 06:54 06:54 MAGNESIUM+C.LAB.BRZ ordered. EDMS EDMS 06:54 06:54 PROBNP+C.LAB.BRZ ordered. EDMS EDMS 06:54 06:54 PROTIME (+INR)+COAG.LAB.BRZ ordered. EDMS EDMS 06:54 06:54 Troponin High Sensitivity+C.LAB.BRZ ordered. EDMS EDMS 06:54 06:54 Chest Single View+RAD.RAD.BRZ ordered. EDMS EDMS
[2024-06-08] MEDS ORDERED: KETOROLAC 30 MG/ML INJ ONE (08:30)
[2024-06-08] MEDS ORDERED: ONDANSETRON 4 MG/2 ML VIAL ONE (08:30)
[2024-06-08 11:43] VITALS: BP 150/86; TEMP 98.7; O2SAT 99
== END 2024-06-08 08:35 | disposition home or self-care (01) ==
LOC: ER 06:31
DX: R51.9 Headache, unspecified (principal); R73.9 Hyperglycemia, unspecified; R11.10 Vomiting, unspecified; R07.9 Chest pain, unspecified; I10 Essential (primary) hypertension
CPT/HCPCS: 96361; 85025; 80048; 36415; 83735; 85610; 80076; 84484; 83690; 83880; 71045; 96375; 96374; 99284; J2405; J7030

== ENCOUNTER 2024-07-22 15:20 | Emergency (ER) | payer OTHER ==
--- OUTSIDE RECORDS SUMMARY | 2024-07-22 15:23 | XMS REPORT | Continuity of Care Document ---
Author Name Unknown Address [address] [facility] [address] [id number] [facility] thconnect Address [address] [facility] [address] [place] [address] Care Team Providers Care Cloud Developer Name Role Phone PCP, PATIENT DOES NOT HAVE A Primary Care Physic josh Unavailable KO HENDRIX Attending Clinician Unavailable Ko Hendrix DO Attending Clinician KO HENDRIX Admitting Clinician Unavailable Allergies, Adverse Reactions, Alerts Allergy Name Allergy Type Status Severity Reaction(s) Onset Date Inactive Date Treating Clinician Comments Source NO KNOWN ALLERGIE S Drug Class Active [facility] Social History Social Habit Start Date Stop Date Quantity Comments Source Sexual orientation U [facility] Sex Assigned At 1985 00:00:00 1985 00:00:[address] [facility] Smoking Status Start Date Stop Date Source Tobacco smoking consumption unknown [facility] Medications Ordered Medication Name Filled Medication Name Start Date Stop Date Current Medication? Ordering Clinician Indication Dosage Frequency Signature (SIG) Comments Components Source dexamethaso ne (DECADRON PHOSPHATE) injection 10 mg 2022-07 19:30: 00 06-07 18:29 :00 No 10mg 10 mg, Oral, ONCE, 1 dose, On Tue06/07/23 at 1330, Routine [facility] methylPREDN ISolone (MEDROL, COLIN,) 4 mg tablets 2022-07 00:00: 00 Yes [id number] Take by mouth SEE-INSTRU CTIONS. follow package directions [facility] benzonatate 100 mg capsule 2022-07 00:00: 00 Yes [id number] 100mg Take 1 capsule by mouth 3 (three) times daily as needed for Cough. [facility] Vital Signs Vital Name Observation Time Observation Value Comments S elvin Systolic blood pressure 2023-06-07 18:12:00 113 mm[Hg] [facility] Diastolic blood pressure 2023-06-07 18:12:00 98 mm[Hg] [facility] Heart rate 2023-06-07 18:12:00 75 /min [facility] Body temperature 2023-06-07 18:12:[address] [facility] Respiratory rate 2023-06-07 18:12:00 14 /min [facility] Body height 2023-06-07 18:12:00 177.8 cm [facility] Body weight 2023-06-07 18:12:00 108.863 kg [facility] BMI 2023-06-07 18:12:00 34.44 kg/m2 [facility] Oxygen saturation in Arterial blood by Pulse oximetry 2023-06-07 18:12:00 100 /min [facility] Procedures Procedure Date / Time Performed Performing Clinicia n Source ASSIGNMENT OF BENEFITS 2023-06-07 20:25:00 Docto r Unassigned, [place] [facility] NOTICE OF PRIVACY PRACTICES 2023-06-07 20:24:45 Doctor Unassigned, [place] [facility] XR CHEST 1 VW 2023-06-07 20:16:56 Ko Hendrix [facility] RAPID INFLUENZA A/B 2023-06-07 18:27:[address] [facility] COVID-19 (ID NOW RAPID TESTING) 2023-06-07 18:27:[address] [facility] CONSENT/REFUSAL FOR DIAGNOSIS AND TREATMENT 2023-06-07 17:57:37 Doctor Unassigned, [place] [facility] Encounters Start Date/Time End Date/Time Encounter Type Admission Type Attending Clinicians Care Facility Care Department Encounter ID Source 2023-06-07 12:17:00 2023-06-07 14:48:00 Emergency X KO HENDRIX [facility] ERT [id number] [facility] 2023-06-07 12:17:00 2023-06-07 14:48:00 Emergency Ko Hendrix [facility] [id number] [facility]
[2024-07-22 16:32] LABS: Absolute Basophils 0.1 K/uL (0-0.5); Absolute Eosinophils 0.1 K/uL (0-0.5); Absolute Lymphocytes (CBC) 2.6 K/uL (0.7-4.9); Absolute Monocytes 0.6 K/uL (0.1-1.3); Basophils % 0.6 % (0-1.3); Eosinophils % 1.8 % (0-4.4); Hemoglobin 12.5 g/dL (13.6-17.9); Lymphocytes % 31.2 % (15.3-44.8); MCHC 31.2 g/dL (32.0-36.0); MCV 73.8 fL (80-100); MPV 7.3 fL (7.6-11.3); Monocytes % 7.1 % (3.3-12.3); Neutrophils % 59.3 % (41.7-73.7); Platelets 316 thou/uL (152-406); RBC Red Blood Cell Count 5.43 M/uL (4.33-5.43)
[2024-07-22] MEDS ORDERED: NA CHLORIDE 0.9% 500 ML ONE (16:42)
[2024-07-22 16:43] LABS: Specific Gravity 1.026 (1.005-1.030); Sqamous Epithelial <5 /HPF (None Seen); Urine Bacteria <20 /HPF (<20); Urine Bilirubin NEGATIVE (Negative); Urine Blood Negative (Negative); Urine Clarity Clear (Clear); Urine Color Light-Yellow (Yellow); Urine Culture Reflex Order NOT NEEDED; Urine Glucose TRACE (Negative); Urine Ketones NEGATIVE (Negative); Urine Microscopic Reflex YN ORDER UMIC; Urine Mucus Slight /HPF (None Seen); Urine Nitrite NEGATIVE (Negative); Urine Protein NEGATIVE (Negative); Urine RBC <5 /HPF (None Seen); Urine Urobilinogen Normal (Normal); Urine WBC <5 /HPF (<5); Urine pH 5.5 (5.0-7.0)
[2024-07-22 16:51] LABS: ALT/SGPT 36 U/L (16-61); AST/SGOT 18 U/L (15-37); Albumin 3.5 g/dL (3.4-5.0); Albumin/Globulin Ratio 0.8 (1.1-1.8); Alkaline Phosphatase 80 U/L (45-117); Anion Gap 10.9 mEq/L (5.0-15.0); BUN Blood Urea Nitrogen 15 mg/dL (7-18); Bicarbonate 24 mEq/L (21-32); Bilirubin Total 0.2 mg/dL (0.2-1.0); Globulin 4.4 g/dL (2.3-3.5); Glomerular Filtration Rate 103 ml/min (=/>90); Glucose Level 148 mg/dL (74-106); Potassium 3.9 mEq/L (3.5-5.1); Protein, Total 7.9 g/dL (6.4-8.2); Sodium Level 136 mEq/L (136-145)
--- NOTE | 2024-07-22 16:58 | RAD REPORT ---
EXAMINATION: TWO VIEW CHEST XR CLINICAL INDICATION: Male, 39 years old. [facility] Bed Name: 5 TECHNIQUE: 2 view radiographs of the chest were performed. COMPARISON: 06/08/2024 FINDINGS: The lungs are well inflated and clear. No pneumothorax or sizable effusion. The heart is normal in si ze. Mediastinal contours are unremarkable. IMPRESSION: No acute or significant abnormalities.
[2024-07-22 17:01] LABS: NT PRO-BNP < 5 pg/mL (<125)
--- NOTE | 2024-07-22 17:09 | EDPHYS ---
Physician Documentation [facility] Name: Holden Morris Age: 39 yrs Sex: Male : 1985 Arrival Date: 07/22/2024 Time: 15:20 Bed 5 Private MD: EDUARDO Physician Aidan Carranza HPI: 07/22 16:51 This 39 yrs old Black Male presents to ER via Ambulatory with complaints of Shortness lorna Of Breath, Breathing Difficulty, Urinary Problem - Blood in urine. 16:55 The patient has shortness of breath at rest. Onset: The symptoms/episode began/occurred lorna 1 day(s) ago. Duration: The symptoms are intermittent. The patient's shortness of breath has no apparent modifying factors. Associated signs and symptoms: Pertinent positives: This patient does not have any pertinent positive signs or symptoms associated with shortness of breath. Severity of symptoms: At their worst the symptoms were very mild in the emergency department the symptoms are unchanged. The patient has not experienced similar symptoms in the past. Historical: - Allergies: 15:32 PENICILLINS; ap3 - PMHx: 15:32 SHAY; Anxiety; Asthma; autoimmune disease; GERD; Hypertension; Resolved; Migraines; ap3 - PSHx: 15:32 Cornea transplant L eye; ap3 - Immunization history:: Client reports receiving the 2nd dose of the Covid vaccine, Flu vaccine is not up to date. - Infectious Disease History:: Denies. - Social history:: Smoking status: Patient denies any tobacco usage or history of. ROS: 16:56 Constitutional: Negative for fever, chills, and weight loss, Eyes: Negative for injury, lorna pain, redness, and discharge, ENT: Negative for injury, pain, and discharge, Neck: Negative for injury, pain, and swelling, Cardiovascular: Negative for chest pain, palpitations, and edema, Abdomen/GI: Negative for abdominal pain, nausea, vomiting, diarrhea, and constipation, Back: Negative for injury and pain, MS/Extremity: Negative for injury and deformity, Skin: Negative for injury, rash, and discoloration, Neuro: Negative for headache, weakness, numbness, tingling, and seizure, Psych: Negative for depression, anxiety, suicide ideation, homicidal ideation, and hallucinations, Allergy/Immunology: Negative for hives, rash, and allergies, Endocrine: Negative for neck swelling, polydipsia, polyuria, polyphagia, and marked weight changes, Hematologic/Lymphatic: Negative for swollen nodes, abnormal bleeding, and unusual bruising, 16:56 Respiratory: Positive for shortness of breath, 16:56 : Positive for hematuria, Exam: 16:56 Constitutional: This is a well developed, well nourished patient who is awake, alert, lorna and in no acute distress. Head/Face: Normocephalic, atraumatic. Eyes: Pupils equal round and reactive to light, extra-ocular motions intact. Lids and lashes normal. Conjunctiva and sclera are non-icteric and not injected. Cornea within normal limits. Periorbital areas with no swelling, redness, or edema. ENT: Nares patent. No nasal discharge, no septal abnormalities noted. Tympanic membranes are normal and external auditory canals are clear. Oropharynx with no redness, swelling, or masses, exudates, or evidence of obstruction, uvula midline. Mucous membranes moist. Neck: Trachea midline, no thyromegaly or masses palpated, and no cervical lymphadenopathy. Supple, full range of motion without nuchal rigidity, or vertebral point tenderness. No Meningismus. Chest/axilla: Normal chest wall appearance and motion. Nontender with no deformity. No lesions are appreciated. Cardiovascular: Regular rate and rhythm with a normal S1 and S2. No gallops, murmurs, or rubs. Normal PMI, no JVD. No pulse deficits. Respiratory: Lungs have equal breath sounds bilaterally, clear to auscultation and percussion. No rales, rhonchi or wheezes noted. No increased work of breathing, no retractions or nasal flaring. Abdomen/GI: Soft, non-tender, with normal bowel sounds. No distension or tympany. No guarding or rebound. No evidence of tenderness throughout. Back: No spinal tenderness. No costovertebral tenderness. Full range of motion. Skin: Warm, dry with normal turgor. Normal color with no rashes, no lesions, and no evidence of cellulitis. MS/ Extremity: Pulses equal, no cyanosis. Neurovascular intact. Full, normal range of motion., bilateral aka Neuro: Awake and alert, GCS 15, oriented to person, place, time, and situation. Cranial nerves II-XII grossly intact. Motor strength 5/5 in all extremities. Sensory grossly intact. Cerebellar exam normal. Normal gait. Psych: Awake, alert, with orientation to person, place and time. Behavior, mood, and affect are within normal limits. 16:56 ECG was reviewed by the Attending Physician. 16:56 Musculoskeletal/extremity: ROM: no acute changes, Circulation is intact in all extremities. Sensation intact. Compartment Syndrome exam of affected extremity: is normal. DVT Exam: No signs of deep vein thrombosis. no pain, no swelling, no tenderness, negative Homans' sign noted on exam, no appreciated bluish discoloration, no erythema, no increased warmth, 16:56 Neuro: Orientation: is normal, appropriate for stated age, no acute changes, Mentation: is normal, appropriate for stated age, no acute changes, Memory: is normal, Cranial nerves: grossly normal, Cerebellar function: is grossly normal, Motor: is normal, moves all fours, Sensation: is normal, Gait: not tested. Vital Signs: 15:30 BP 146 / 67; Pulse 76; Resp 17; Temp 98.1(O); Pulse Ox 100% on R/A; Weight 102.06 kg; ap3 Height 5 ft. 10 in. ; 15:30 Body Mass Index 32.28 (102.06 kg, 177.8 cm) ap3 NIH Stroke Scale Scores: 16:56 NIHSS Score: 0 lorna [place] Coma Score: 16:56 Eye Response: spontaneous(4). Motor Response: obeys commands(6). Verbal Response: lorna oriented(5). Total: 15. MDM: 15:25 Medical Screening Exam initiated lorna 16:59 Differential diagnosis: Anemia Anxiety Reaction asthma, Bronchitis CHF exacerbation, lorna nonspecific abdominal pain, prostatitis, urethritis, pneumonia, Pneumothorax Psychogenic pulmonary edema, Pulmonary Embolism reactive airway disease, Sepsis Unstable Angina. Antibiotic administration: Not indicated. Immunization status:. Data reviewed: vital signs, nurses notes, lab test result(s), EKG, radiologic studies, plain films. Consideration of Admission/Observation Escalation of care including admission/observation considered. I considered the following discharge prescriptions or medication management in the emergency department Medications were administered in the Emergency Department. See MAR. Independent interpretation of the following test(s) in the Emergency Department EKG: See my EKG interpretation above. Test considered but Not performed: CT: NO CT PE. Historians other than the Patient: PT WELL INFORMED. Care significantly affected by the following chronic conditions: ASTHMA. 07/22 15:27 Order name: CBC with Diff; Complete Time: 16:40 [facility] 07/22 15:27 Order name: Comprehensive Metabolic Panel; Complete Time: 17:08 [facility] 07/22 15:27 Order name: Troponin High Sensitivity; Complete Time: 17:08 [facility] 07/22 15:27 Order name: BNP; Complete Time: 17:08 [facility] 07/22 15:27 Order name: Urinalysis w/ reflexes; Complete Time: 17:00 [facility] 07/22 15:27 Order name: Chest Pa And Lat (2 Views) XRAY; Complete Time: 17:00 [facility] 07/22 15:27 Order name: EKG - Nurse/Tech; Complete Time: 16:36 [facility] EC:56 Rate is 72 beats/min. Rhythm is regular. QRS [place] is Normal. [place] interval is normal. QRS lonra interval is normal. QT interval is normal. No Q waves. T waves are Normal. No ST changes noted. Clinical impression: NSR w/ Non-specific ST/T Changes and No evidence of ischemia. Interpreted by me. Reviewed by me. Administered Medications: 16:43 Drug: NS 0.9% IV 500 ml 500 ml IV at 1 bolus once; to be given as a bolus over 30 cm10 minutes Volume: 500 ml; Route: IV; Rate: 1 bolus; Site: left antecubital; Disposition Summary: 07/22/24 17:09 Discharge Ordered Notes: Location: Home lorna Problem: new lorna Symptoms: have improved lorna Condition: Stable lorna Diagnosis - Dyspnea lorna - Hematuria, unspecified - NOT OBSERVED lorna - Hyperglycemia, unspecified lorna Followup: lorna - With: Private Physician - When: 2 - 3 days - Reason: Recheck today's complaints, Continuance of care, Re-evaluation by your physician Followup: lorna - With: Johan Kulkarni MD - When: 2 - 3 days - Reason: Recheck today's complaints, Re-evaluation by your physician Discharge Instructions: - Discharge Summary Sheet lorna - Asthma, Adult lorna - Hematuria, Adult lorna - Hyperglycemia lorna - Asthma, Adult, [id number] lorna Forms: - Medication Reconciliation Form lorna - Antibiotic Education lorna - Prescription Opioid Use lorna - Patient Portal Instructions lorna - Leadership Thank You Letter [facility] Prescriptions: - albuterol sulfate 90 mcg/actuation Inhalation HFA Aerosol Inhaler - inhale 2 puff INHALATION route every 4 to 6 hours as needed for shortness of lorna breath or wheezing; 1 unit; Refills: 0, Product Selection Permitted NIH Stroke Scale - NIH Stroke Score Date: 07/22/2024 Time: 16:56 Total Score = 0 10. Dysarthria (speech clarity - read or repeat words) - 0(Normal) 11. Extinction and Inattention (visual/tactile/auditory/spatial/personal) - 0(No abnormality) 1a. Level of Consciousness (LOC) - 0(Alert) 1b. Level of Consciousness (LOC) (Month \T\ Age) - 0(Both) 1c. LOC Commands (Open \T\ Closes Eyes/Feed Crusher Operator) - 0(Both) 2. Best Gaze (Lateral Gaze Paresis) - 0(Normal) 3. Visual Field Loss - 0(No visual loss) 4. Facial Palsy - 0(Normal) 5a. Left Arm: Motor (10-second hold) - 0(No drift) 5b. Right Arm: Motor (10-second hold) - 0(No drift) 6a. Left Leg: Motor (5-second hold - always test supine) - 0(No drift) 6b. Right Leg: Motor (5-second hold - always test supine) - 0(No drift) 7. Limb Ataxia (finger/nose \T\ heel/sigala - test with eyes open) - 0(Absent) 8. Sensory Loss (pinprick arms/legs/face) - 0(Normal) 9. Best Language: Aphasia (description/naming/reading) - 0(No aphasia) Initials: lorna Signatures: Dispatcher [employer] Aidan Goodman MD MD cha Prokisch, Amanda RN RN ap3 Vandana Oliver, RN RN cm10
--- NOTE | 2024-07-22 17:09 | ER ---
Nurse's Notes [facility] Name: Holden Morris Age: 39 yrs Sex: Male : 1985 Arrival Date: 07/22/2024 Time: 15:20 Bed 5 Private MD: Diagnosis: Dyspnea;Hematuria, unspecified-NOT OBSERVED;Hyperglycemia, unspecified Presentation: 07/22 15:30 Chief complaint: Patient states: he has been having a cough with bloody sputum since ap3 this morning. patient also reports blood in his urine today as well. patient also states he was feeling short of breath when he woke up. Coronavirus screen: Client presents with at least one sign or symptom that may indicate coronavirus-19. Ebola Screen: No symptoms or risks identified at this time. Initial Sepsis Screen: Does the patient meet any 2 criteria? No. Patient's initial sepsis screen is negative. Does the patient have a suspected source of infection? No. Patient's initial sepsis screen is negative. Risk Assessment: Do you want to hurt yourself or someone else? Patient reports no desire to harm self or others. Onset of symptoms was July 22, 2024. 15:30 Method Of Arrival: Ambulatory ap3 15:30 Acuity: STONE 3 ap3 Triage Assessment: 15:32 General: Appears in no apparent distress. Behavior is calm, cooperative, appropriate ap3 for age. Pain: Denies pain. Neuro: Level of Consciousness is awake, alert, obeys commands, Oriented to person, place, time, situation, Appropriate for age Gait is steady, Speech is normal. Cardiovascular: Patient's skin is warm and dry. Respiratory: Reports shortness of breath cough that is Airway is patent Respiratory effort is even, unlabored, Respiratory pattern is regular, symmetrical, Onset: The symptoms/episode began/occurred gradually, the patient has mild shortness of breath. Historical: - Allergies: 15:32 PENICILLINS; ap3 - PMHx: 15:32 SHAY; Anxiety; Asthma; autoimmune disease; GERD; Hypertension; Resolved; Migraines; ap3 - PSHx: 15:32 Cornea transplant L eye; ap3 - Immunization history:: Client reports receiving the 2nd dose of the Covid vaccine, Flu vaccine is not up to date. - Infectious Disease History:: Denies. - Social history:: Smoking status: Patient denies any tobacco usage or history of. Screenin:33 [facility] ED Fall Risk Assessment (Adult) History of falling in the last 3 months, ap3 including since admission No falls in past 3 months (0 pts) Confusion or Disorientation No (0 pts) Intoxicated or Sedated No (0 pts) Impaired Gait No (0 pts) Mobility Assist Device Used No (0 pt) Altered Elimination No (0 pt) Score/Fall Risk Level 0 - 2 = Low Risk Oriented to surroundings, Maintained a safe environment, Educated pt \T\ family on fall prevention, incl call for assistance when getting out of bed, Assessed \T\ reinforced patient's understanding of fall precautions, Hourly rounding (assess needs \T\ fall precautionary measures) done, Used ambulatory aids as needed (educated on \T\ assisted with), Used gait belt as appropriate. Abuse screen: Denies threats or abuse. Nutritional screening: No deficits noted. Tuberculosis screening: No symptoms or risk factors identified. Vital Signs: 15:30 BP 146 / 67; Pulse 76; Resp 17; Temp 98.1(O); Pulse Ox 100% on R/A; Weight 102.06 kg; ap3 Height 5 ft. 10 in. ; 15:30 Body Mass Index 32.28 (102.06 kg, 177.8 cm) ap3 [place] Coma Score: 16:56 Eye Response: spontaneous(4). Motor Response: obeys commands(6). Verbal Response: lorna oriented(5). Total: 15. NIH Stroke Scale Scores: 16:56 NIHSS Score: 0 lorna ED Course: 15:22 Patient arrived in ED. ra3 15:25 Aidan Carranza MD is Attending Physician. lorna 15:32 Triage completed. ap3 15:33 Arm band placed on right wrist. ap3 16:35 Warm blanket given. Verbal reassurance given. am7 16:35 Inserted saline lock: 20 gauge in left antecubital area, using aseptic technique. Blood am7 collected. Flushed with 10 mL NS. 16:36 Urinalysis w/ reflexes Sent. am7 16:36 EKG done, by ED staff, reviewed by Aidan Carranza MD. am7 16:56 Chest Pa And Lat (2 Views) XRAY In Process Unspecified. EDMS 17:09 Johan Kulkarni MD is Referral Physician. lorna 17:38 No provider procedures requiring assistance completed. IV discontinued, intact, ap3 bleeding controlled, No redness/swelling at site. Pressure dressing applied. 17:39 Patient has correct armband on for positive identification. Bed in low position. Call ap3 light in reach. Side rails up X 1. Provided Education on: discharge instructions. Administered Medications: 16:43 Drug: NS 0.9% IV 500 ml 500 ml IV at 1 bolus once; to be given as a bolus over 30 cm10 minutes Volume: 500 ml; Route: IV; Rate: 1 bolus; Site: left antecubital; Medication: 17:40 VIS not applicable for this client. ap3 Outcome: 17:09 Discharge ordered by MD. lorna 17:40 Discharged to home ambulatory, ap3 17:40 Condition: good 17:40 Discharge instructions given to patient, Instructed on discharge instructions, follow up and referral plans. medication usage, Demonstrated understanding of instructions, follow-up care, medications, Prescriptions given X 1, 17:41 Patient left the ED. ap3 NIH Stroke Scale - NIH Stroke Score Date: 07/22/2024 Time: 16:56 Total Score = 0 10. Dysarthria (speech clarity - read or repeat words) - 0(Normal) 11. Extinction and Inattention (visual/tactile/auditory/spatial/personal) - 0(No abnormality) 1a. Level of Consciousness (LOC) - 0(Alert) 1b. Level of Consciousness (LOC) (Month \T\ Age) - 0(Both) 1c. LOC Commands (Open \T\ Closes Eyes/Shoemaker Custom) - 0(Both) 2. Best Gaze (Lateral Gaze Paresis) - 0(Normal) 3. Visual Field Loss - 0(No visual loss) 4. Facial Palsy - 0(Normal) 5a. Left Arm: Motor (10-second hold) - 0(No drift) 5b. Right Arm: Motor (10-second hold) - 0(No drift) 6a. Left Leg: Motor (5-second hold - always test supine) - 0(No drift) 6b. Right Leg: Motor (5-second hold - always test supine) - 0(No drift) 7. Limb Ataxia (finger/nose \T\ heel/sigala - test with eyes open) - 0(Absent) 8. Sensory Loss (pinprick arms/legs/face) - 0(Normal) 9. Best Language: Aphasia (description/naming/reading) - 0(No aphasia) Initials: lorna Signatures: Dispatcher [employer] Aidan Goodman MD MD cha Prokisch, Amanda, RN RN ap3 Vandana Oliver RN RN cm10 Ngozi Randall ra3 Domi Hernandez am7
[2024-07-22 18:23] VITALS: BP 146/67; TEMP 98.1; O2SAT 100
--- NOTE | 2024-07-26 13:06 | EKG ---
Test Date: 2024-07-22 Test Time: 16:30:13 Rd Scientist: AM MEASUREMENT RESULTS: Intervals: Rate: 72 TX: 136 QRSD: 82 QT: 356 QTc: 389 [place]: P: 58 TX: 136 QRS: 25 T: 26 INTERPRETIVE STATEMENTS: Normal sinus rhythm Nonspecific T wave abnormality Abnormal ECG Compared to ECG 06/08/2024 07:06:33 T-wave abnormality now present Sinus arrhythmia no longer present Electronically Signed On 07-26-24 13:01:21 COTTON STRIPPER by Dwayne Valentin
== END 2024-07-22 17:41 | disposition home or self-care (01) ==
LOC: ER 15:20
DX: R06.00 Dyspnea, unspecified (principal); R31.9 Hematuria, unspecified; R73.9 Hyperglycemia, unspecified; I10 Essential (primary) hypertension; J45.909 Unspecified asthma, uncomplicated; M35.9 Systemic involvement of connective tissue, unspecified
CPT/HCPCS: 93005; 85025; 81001; 36415; 84484; 80053; 83880; 71046; 99284; J7040

== ENCOUNTER 2024-08-29 21:06 | Emergency (ER) | payer OTHER ==
--- OUTSIDE RECORDS SUMMARY | 2024-08-29 21:09 | XMS REPORT | Continuity of Care Document ---
Author Name Unknown Address [address] [facility] [address] [id number] [facility] thconnect Address [address] [facility] [address] [place] [address] Care Team Providers Care Typesetter Perforator Operator Name Role Phone PCP, PATIENT DOES NOT HAVE A Primary Care Physic josh Unavailable KO HENDRIX Attending Clinician Unavailable Ko Hendrix DO Attending Clinician KO HENDRIX Admitting Clinician Unavailable Allergies, Adverse Reactions, Alerts Allergy Name Allergy Type Status Severity Reaction(s) Onset Date Inactive Date Treating Clinician Comments Source NO KNOWN ALLERGIE S Drug Class Active [facility] Social History Social Habit Start Date Stop Date Quantity Comments Source Sexual orientation U [facility] Sex Assigned At 1985 00:00:00 1985 00:00:00 [facility] Smoking Status Start Date Stop Date Source Tobacco smoking consumption unknown [facility] Medications Ordered Medication Name Filled Medication Name Start Date Stop Date Current Medication? Ordering Clinician Indication Dosage Frequency Signature (SIG) Comments Components Source dexamethaso ne (DECADRON PHOSPHATE) injection 10 mg 2022-07 19:30: 00 06-07 18:29 :00 No 10mg 10 mg, Oral, ONCE, 1 dose, On Tue06/07/23 at 1330, Routine [facility] methylPREDN ISolone (MEDROL, COLIN,) 4 mg tablets 2022-07 00:00: 00 Yes [id number] Take by mouth SEE-INSTRU CTIONS. follow package directions [facility] benzonatate 100 mg capsule 2022-07 00:00: 00 Yes [id number] 100mg Take 1 capsule by mouth 3 (three) times daily as needed for Cough. [facility] Vital Signs Vital Name Observation Time Observation Value Comments S elvin Systolic blood pressure 2023-06-07 18:12:00 113 mm[Hg] [facility] Diastolic blood pressure 2023-06-07 18:12:00 98 mm[Hg] [facility] Heart rate 2023-06-07 18:12:00 75 /min [facility] Body temperature 2023-06-07 18:12:00 36.61 Yari [facility] Respiratory rate 2023-06-07 18:12:00 14 /min [facility] Body height 2023-06-07 18:12:00 177.8 cm [facility] Body weight 2023-06-07 18:12:00 108.863 kg [facility] BMI 2023-06-07 18:12:00 34.44 kg/m2 [facility] Oxygen saturation in Arterial blood by Pulse oximetry 2023-06-07 18:12:00 100 /min [facility] Procedures Procedure Date / Time Performed Performing Clinicia n Source ASSIGNMENT OF BENEFITS 2023-06-07 20:25:00 Docto r Unassigned, [place] [facility] NOTICE OF PRIVACY PRACTICES 2023-06-07 20:24:45 Doctor Unassigned, [place] [facility] XR CHEST 1 VW 2023-06-07 20:16:56 Ko Hendrix [facility] RAPID INFLUENZA A/B 2023-06-07 18:27:00 Hamida Hendrix [facility] COVID-19 (ID NOW RAPID TESTING) 2023-06-07 18:27:00 Ko Hendrix [facility] CONSENT/REFUSAL FOR DIAGNOSIS AND TREATMENT 2023-06-07 17:57:37 Doctor Unassigned, [place] [facility] Encounters Start Date/Time End Date/Time Encounter Type Admission Type Attending Clinicians Care Facility Care Department Encounter ID Source 2023-06-07 12:17:00 2023-06-07 14:48:00 Emergency X KO HENDRIX [facility] ERT [id number] [facility] 2023-06-07 12:17:00 2023-06-07 14:48:00 Emergency Ko Hendrix [facility] [id number] [facility]
[2024-08-29 22:53] LABS: Influenza A Ag Negative; Influenza B Ag Negative; SARS-CoV-2 Antigen Rapid Res Negative (Negative)
--- NOTE | 2024-08-29 22:56 | ER ---
Nurse's Notes [facility] Name: Holden Morris Age: 39 yrs Sex: Male : 1985 Arrival Date: 08/29/2024 Time: 21:06 Bed DX4 Private MD: Diagnosis: Acute upper respiratory infection, unspecified Presentation: 08/29 21:23 Chief complaint: Patient states: FLU SYMPTOMS, COUGH, CONGESTION, DIZZY X1 DAY. dd2 Coronavirus screen: congestion, cough unrelated to allergies, fever. Ebola Screen: No symptoms or risks identified at this time. Initial Sepsis Screen: Does the patient meet any 2 criteria? No. Patient's initial sepsis screen is negative. Does the patient have a suspected source of infection? No. Patient's initial sepsis screen is negative. Risk Assessment: Do you want to hurt yourself or someone else? Patient reports no desire to harm self or others. Onset of symptoms was August 29, 2024. 21:23 Method Of Arrival: Ambulatory dd2 21:23 Acuity: STONE 3 dd2 Triage Assessment: : General: Appears in no apparent distress. Behavior is calm, cooperative, appropriate dd2 for age. Pain: Complains of pain in HEAD Pain does not radiate. Pain currently is 5 out of 10 on a pain scale. EENT: No deficits noted. No signs and/or symptoms were reported regarding the EENT system. Neuro: No deficits noted. Level of Consciousness is awake, alert, obeys commands, Oriented to person, place, time, Reports headache. Cardiovascular: No deficits noted. Respiratory: Reports cough that is non-productive, Airway is patent Respiratory effort is even, unlabored, Respiratory pattern is regular, symmetrical. GI: No deficits noted. No signs and/or symptoms were reported involving the gastrointestinal system. : No deficits noted. No signs and/or symptoms were reported regarding the genitourinary system. Derm: No deficits noted. No signs and/or symptoms reported regarding the dermatologic system. Musculoskeletal: No deficits noted. No signs and/or symptoms reported regarding the musculoskeletal system. Circulation, motion, and sensation intact. Range of motion: intact in all extremities. Historical: - Allergies: : PENICILLINS; dd2 - PMHx: : SHAY; Anxiety; Asthma; autoimmune disease; GERD; Hypertension; Resolved; Migraines; dd2 - PSHx: 21:27 Cornea transplant L eye; dd2 - Immunization history:: Adult Immunizations up to date. - Infectious Disease History:: Denies. - Social history:: Smoking status: Patient denies any tobacco usage or history of. Screenin:30 [facility] ED Fall Risk Assessment (Adult) History of falling in the last 3 months, vc1 including since admission No falls in past 3 months (0 pts) Confusion or Disorientation No (0 pts) Intoxicated or Sedated No (0 pts) Impaired Gait No (0 pts) Mobility Assist Device Used No (0 pt) Altered Elimination No (0 pt) Score/Fall Risk Level 0 - 2 = Low Risk Oriented to surroundings, Maintained a safe environment, Educated pt \T\ family on fall prevention, incl call for assistance when getting out of bed. Abuse screen: Denies threats or abuse. Nutritional screening: No deficits noted. Tuberculosis screening: No symptoms or risk factors identified. Vital Signs: 21:23 BP 147 / 87; Pulse 89; Resp 16; Temp 98(O); Pulse Ox 97% ; Weight 97.52 kg; Pain 3/10; dd2 21:23 Pain Scale: Adult dd2 ED Course: 21:07 Patient arrived in ED. jj6 21:08 Eve Murray FNP-C is [facility]. kb 21:08 João Barillas MD is Attending Physician. kb 21:08 Arthur Gomez MD is Attending Physician. kb 21:27 Triage completed. dd2 21:27 Arm band placed on right wrist. dd2 21:34 COVID-19 Ag + Flu A+B Ag Sent. dd2 21:34 Group A Streptococcus Rapid Sent. dd2 23:35 No provider procedures requiring assistance completed. Patient did not have IV access vc1 during this emergency room visit. Administered Medications: No medications were administered Medication: 23:35 VIS not applicable for this client. vc1 Outcome: 22:55 Discharge ordered by . kb 23:35 Patient left the ED. vc1 23:35 Discharged to home ambulatory, vc1 23:35 Condition: good 23:35 Discharge instructions given to patient, Instructed on discharge instructions, follow up and referral plans. Demonstrated understanding of instructions, follow-up care, Signatures: Eve Murray FNP-C FNP-Ckb Jeffries, Jennifer jj6 Katie Garcia, RN RN vc1 AMADA HOWE, RN RN dd2
--- NOTE | 2024-08-29 22:56 | EDPHYS ---
Physician Documentation [facility] Name: Holden Morris Age: 39 yrs Sex: Male : 1985 Arrival Date: 08/29/2024 Time: 21:06 Bed DX4 Private MD: ED Physician Arthur Gomez HPI: 08/29 22:54 This 39 yrs old Black Male presents to ER via Ambulatory with complaints of Flu kb Symptoms. 22:54 Pt is a 39 year old who presents for "flu symptoms" that started this morning. Reports kb cough, congestion, feeling hot and dizziness. Denies vomiting, diarhea. Historical: - Allergies: 21:27 PENICILLINS; dd2 - PMHx: 21:27 SHAY; Anxiety; Asthma; autoimmune disease; GERD; Hypertension; Resolved; Migraines; dd2 - PSHx: 21:27 Cornea transplant L eye; dd2 - Immunization history:: Adult Immunizations up to date. - Infectious Disease History:: Denies. - Social history:: Smoking status: Patient denies any tobacco usage or history of. ROS: 22:54 Constitutional: As per HPI kb Exam: 22:54 Constitutional: This is a well developed, well nourished patient who is awake, alert, kb and in no acute distress. Head/Face: Normocephalic, atraumatic. ENT: Moist Mucous membranes Cardiovascular: Regular rate Respiratory: Respirations even and unlabored. No increased work of breathing. Talking in full sentences Skin: Warm, dry with normal turgor. Normal color. MS/ Extremity: Pulses equal, no cyanosis. Neurovascular intact. Full, normal range of motion. Neuro: Awake and alert, GCS 15, oriented to person, place, time, and situation. Vital Signs: 21:23 BP 147 / 87; Pulse 89; Resp 16; Temp 98(O); Pulse Ox 97% ; Weight 97.52 kg; Pain 3/10; dd2 21:23 Pain Scale: Adult dd2 MDM: 21:08 Medical Screening Exam initiated kb 22:54 Differential diagnosis: flu, covid, uri, strep. Data reviewed: vital signs, nurses kb notes. I considered the following discharge prescriptions or medication management in the emergency department I discussed and recommended Over The Counter medications, Antibiotics: At this time antibiotics are not recommended. Counseling: I had a detailed discussion with the patient and/or guardian regarding the historical points, exam findings, and any diagnostic results supporting the discharge/admit diagnosis, lab results, the need for outpatient follow up, a family practitioner, to return to the emergency department if symptoms worsen or persist or if there are any questions or concerns that arise at home. 08/29 21:23 Order name: Group A Streptococcus Rapid; Complete Time: 22:38 kb 08/29 21:23 Order name: COVID-19 Ag + Flu A+B Ag; Complete Time: 22:54 kb 08/29 22:55 Order name: Throat Culture EDMS Administered Medications: No medications were administered Disposition: 08/30 21:42 Co-signature as Attending Physician, Arthur Gomez MD I agree with the assessment sp4 and plan of care. I reviewed the patient's care provided by the Advanced Practice Provider and agree with the diagnosis and treatment plan. Disposition Summary: 08/29/24 22:55 Discharge Ordered Notes: Location: Home kb Condition: Stable kb Diagnosis - Acute upper respiratory infection, unspecified kb Followup: kb - With: Emergency Department - When: As needed - Reason: Worsening of condition Followup: kb - With: Private Physician - When: 2 - 3 days - Reason: Recheck today's complaints, Continuance of care, Re-evaluation by your physician Discharge Instructions: - Discharge Summary Sheet kb - Upper Respiratory Infection, Adult, [id number] kb - Viral Respiratory Infection, [id number] kb Forms: - Medication Reconciliation Form kb - Antibiotic Education kb - Prescription Opioid Use kb - Patient Portal Instructions kb - Leadership Thank You Letter kb Signatures: Dispatcher [employer] EDEve Alfonso, PHU YEAGER-Arthur Gutierrez MD MD sp4 AMADA HOWE, RN RN dd2
[2024-08-29 23:39] VITALS: BP 147/87; TEMP 98; O2SAT 97
== END 2024-08-29 23:35 | disposition home or self-care (01) ==
LOC: ER 21:06
DX: J06.9 Acute upper respiratory infection, unspecified (principal); Z11.52 Encounter for screening for COVID-19
CPT/HCPCS: 36415; 87070; 87428; 99283

== ENCOUNTER 2024-10-10 08:31 | Emergency (ER) | payer OTHER ==
--- OUTSIDE RECORDS SUMMARY | 2024-10-10 08:55 | XMS REPORT | Continuity of Care Document ---
Author Name Unknown Address [address] [place] [address] [address] [place] [address] [facility] [place] Address [address] [facility] [address] [place] [address] Care Team Providers Care Tower Climber Name Role Phone PCP, PATIENT DOES NOT [...] Quantity Comments Source Sexual orientation U [facility] Sex Assigned At 1985 00:00:00 1985 00:00:00 [facility] Smoking Status Start Date Stop Date Source Tobacco smoking consumption unknown [facility] Medications Ordered Medication Name Filled Medication [...] 4 mg tablets 2022-07 00:00: 00 Yes [id number] Take by mouth SEE-INSTRU CTIONS. follow package directions [facility] benzonatate 100 mg capsule 2022-07 00:00: 00 Yes [id number] 100mg Take 1 capsule by mouth 3 (three) times daily as needed for Cough. [facility] Vital Signs Vital Name Observation Time Observation Value Comments S ource Systolic blood pressure 2023-06-07 18:12:00 113 mm[Hg] [facility] Diastolic blood pressure 2023-06-07 18:12:00 98 mm[Hg] [facility] Heart rate 2023-06-07 18:12:00 75 /min [facility] Body temperature 2023-06-07 18:12:00 36.61 Yari [facility] Respiratory rate 2023-06-07 18:12:00 14 /min [facility] Body height 2023-06-07 18:12:00 177.8 cm [facility] Body weight 2023-06-07 18:12:00 108.863 kg [facility] BMI 2023-06-07 18:12:00 34.44 kg/m2 [facility] Oxygen saturation in Arterial blood by Pulse oximetry 2023-06-07 18:12:00 100 /min [facility] Procedures Procedure Date / Time Performed Performing Clinicia n Source ASSIGNMENT OF BENEFITS 2023-06-07 20:25:00 Docto r Unassigned, [place] [facility] NOTICE OF PRIVACY PRACTICES 2023-06-07 20:24:45 Doctor Unassigned, [place] [facility] XR CHEST 1 VW 2023-06-07 20:16:56 Ko Hendrix [facility] RAPID INFLUENZA A/B 2023-06-07 18:27:00 Hamida Hendrix [facility] COVID-19 (ID NOW RAPID TESTING) 2023-06-07 18:27:00 Ko Hendrix [facility] CONSENT/REFUSAL FOR DIAGNOSIS AND TREATMENT 2023-06-07 17:57:37 Doctor Unassigned, [place] [facility] Encounters Start Date/Time End Date/Time Encounter Type Admission Type Attending Clinicians Care Facility Care Department Encounter ID Source 2023-06-07 12:17:00 2023-06-07 14:48:00 Emergency X KO HENDRIX [facility] ERT [id number] [facility] 2023-06-07 12:17:00 2023-06-07 14:48:00 Emergency Ko Hendrix [facility] [id number] [facility]
[2024-10-10] MEDS ORDERED: NA CHLORIDE 0.9% 1,000 ML ONE (09:58)
[2024-10-10 10:31] LABS: Absolute Eosinophils 0.1 K/uL (0-0.5); Absolute Lymphocytes (CBC) 2.1 K/uL (0.7-4.9); Absolute Monocytes 0.5 K/uL (0.1-1.3); Absolute Neutrophil 3.6 K/uL (1.8-8.0); Basophils % 0.4 % (0-1.3); Eosinophils % 1.8 % (0-4.4); Hematocrit 35.4 % (39.6-49.0); Hemoglobin 11.4 g/dL (13.6-17.9); Lymphocytes % 33.4 % (15.3-44.8); MCH 23.7 pg (27.0-35.0); MCHC 32.4 g/dL (32.0-36.0); MCV 73.3 fL (80-100); MPV 7.6 fL (7.6-11.3); Monocytes % 7.8 % (3.3-12.3); Neutrophils % 56.6 % (41.7-73.7); Nucleated Red Blood Cells % 0.1 % (0-0); Platelets 253 thou/uL (152-406); RBC Red Blood Cell Count 4.82 M/uL (4.33-5.43); Red Cell Distribution Width 15.1 % (12.1-15.2)
--- NOTE | 2024-10-10 11:07 | EDPHYS ---
Physician Documentation [facility] Name: Holden Morris Age: 39 yrs Sex: Male : 1985 Arrival Date: 10/10/2024 Time: 08:31 Bed 8 Private MD: ED Physician Rita Pepe HPI: 10/10 11:07 This 39 yrs old Black Male presents to ER via Ambulatory with complaints of Dizziness, gb1 Vomiting/Diarrhea. 11:07 39-year-old -[place] male here with vomiting diarrhea and states he felt dizzy gb1 this morning when he woke up. He has a history of SHAY, anxiety, asthma, GERD, hypertension and migraine headaches. He denies any fever or chills.. Historical: - Allergies: 08:53 PENICILLINS; jl7 - Home Meds: 08:53 None [Active]; jl7 - PMHx: 08:53 SHAY; Anxiety; Asthma; autoimmune disease; GERD; Hypertension; Resolved; Migraines; jl7 - PSHx: 08:53 Cornea transplant L eye; jl7 - Immunization history:: Adult Immunizations up to date. - Infectious Disease History:: Denies. - Social history:: Smoking status: Patient denies any tobacco usage or history of. Exam: 11:07 Constitutional: This is a well developed, well nourished patient who is awake, alert, gb1 and in no acute distress. Head/Face: Normocephalic, atraumatic. Eyes: Pupils equal round and reactive to light, extra-ocular motions intact. Lids and lashes normal. Conjunctiva and sclera are non-icteric and not injected. Cornea within normal limits. Periorbital areas with no swelling, redness, or edema. ENT: Nares patent. No nasal discharge, no septal abnormalities noted. Tympanic membranes are normal and external auditory canals are clear. Oropharynx with no redness, swelling, or masses, exudates, or evidence of obstruction, uvula midline. Mucous membranes moist. Neck: Trachea midline, no thyromegaly or masses palpated, and no cervical lymphadenopathy. Supple, full range of motion without nuchal rigidity, or vertebral point tenderness. No Meningismus. Chest/axilla: Normal chest wall appearance and motion. Nontender with no deformity. No lesions are appreciated. Cardiovascular: Regular rate and rhythm with a normal S1 and S2. No gallops, murmurs, or rubs. Normal PMI, no JVD. No pulse deficits. Respiratory: Lungs have equal breath sounds bilaterally, clear to auscultation and percussion. No rales, rhonchi or wheezes noted. No increased work of breathing, no retractions or nasal flaring. Abdomen/GI: Soft, non-tender, with normal bowel sounds. No distension or tympany. No guarding or rebound. No evidence of tenderness throughout. Back: No spinal tenderness. No costovertebral tenderness. Full range of motion. Skin: Warm, dry with normal turgor. Normal color with no rashes, no lesions, and no evidence of cellulitis. MS/ Extremity: Pulses equal, no cyanosis. Neurovascular intact. Full, normal range of motion. Vital Signs: 08:50 BP 150 / 84; Pulse 71; Resp 15; Temp 97; Pulse Ox 100% ; Weight 97.52 kg; Height 5 ft. jl7 8 in. ; Pain 9/10; 09:30 BP 134 / 76; Pulse 88; Resp 16; Pulse Ox 99% on R/A; db 10:30 BP 163 / 59; Pulse 78; Resp 16; Pulse Ox 99% on R/A; db 08:50 Body Mass Index 32.69 (97.52 kg, 172.72 cm) jl7 08:50 Pain Scale: Adult jl7 MDM: 09:01 Medical Screening Exam initiated gb1 11:07 ED course: 39-year-old male with vomiting and diarrhea. Stable here today. Patient is gb1 otherwise no focal peritoneal signs on abdominal exam. I doubt acute appendicitis or acute pancreatitis. He is p.o. tolerant and I recommend follow-up as an outpatient with his primary care doctor. I doubt acute appendicitis acute cholecystitis or small bowel obstruction. Patient is compliant with her chronic care prior to discharge home today.. 10/10 10:03 Order name: CBC with Diff; Complete Time: 11: gb1 10/10 10:03 Order name: CMP; Complete Time: 11: gb1 10/10 10:03 Order name: Lipase; Complete Time: 11: gb1 10/10 10:03 Order name: IV Saline Lock; Complete Time: : gb1 10/10 10:03 Order name: Labs collected and sent; Complete Time: 10:23 gb1 Administered Medications: 10:18 Drug: NS 0.9% IV 1000 ml IV at 1 bolus Per protocol; to be given as a bolus over 60 db minutes Route: IV; Rate: 1 bolus; Site: left antecubital; 11:30 Follow up: Response: No adverse reaction; IV Status: Completed infusion; IV Intake: cm10 1000ml 10:23 Not Given (Patient Refused): ondansetron 4 mg IVP once; over 2 minutes db Disposition Summary: 10/10/24 11:06 Discharge Ordered Notes: Location: Home gb1 Problem: new gb1 Symptoms: have worsened gb1 Condition: Stable gb1 Diagnosis - Infectious gastroenteritis and colitis, unspecified gb1 Followup: gb1 - With: Private Physician - When: - Reason: Re-evaluation by your physician Discharge Instructions: - Discharge Summary Sheet gb1 - Food Choices to Help Relieve Diarrhea, Adult gb1 - Viral Gastroenteritis, Adult gb1 Forms: - Work release form cm10 - Medication Reconciliation Form gb1 - Antibiotic Education gb1 - Prescription Opioid Use gb1 - Patient Portal Instructions gb1 - Leadership Thank You Letter gb1 Prescriptions: - Zofran 4 mg Oral Tablet - take 1 tablet ORAL route every 12 hours As needed; 20 tablet; Refills: 0, gb1 Product Selection Permitted Signatures: Dispatcher [employer] Jelani Ha RN RN jl7 Yaa Alvarez RN RN db Rita Pepe MD MD gb1 Vandana Oliver RN cm10
--- NOTE | 2024-10-10 11:07 | ER ---
Nurse's Notes [facility] Name: Holden Morris Age: 39 yrs Sex: Male : 1985 Arrival Date: 10/10/2024 Time: 08:31 Bed 8 Private MD: Diagnosis: Infectious gastroenteritis and colitis, unspecified Presentation: 10/10 08:50 Chief complaint: Patient states: Woke this morning with N/V/D and body aches, took some jl7 Pepto and went to work, continued N/V/D, dizzy and stabbing pain from the bottom of the left foot radiating all the way up to left shoulder. Coronavirus screen: At this time, the client does not indicate any symptoms associated with coronavirus-19. Ebola Screen: No symptoms or risks identified at this time. Initial Sepsis Screen: Does the patient meet any 2 criteria? No. Patient's initial sepsis screen is negative. Does the patient have a suspected source of infection? No. Patient's initial sepsis screen is negative. Risk Assessment: Do you want to hurt yourself or someone else? Patient reports no desire to harm self or others. Onset of symptoms was October 10, 2024. Care prior to arrival: None. 08:50 Method Of Arrival: Ambulatory jl7 08:50 Acuity: STONE 3 jl7 Triage Assessment: 08:53 General: Appears in no apparent distress. uncomfortable, Behavior is calm, cooperative, jl7 appropriate for age. Pain: Complains of pain in bottom of left foot Pain radiates to left arm Pain currently is 9 out of 10 on a pain scale. Quality of pain is described as stabbing. GI: Reports diarrhea, nausea, vomiting. Historical: - Allergies: 08:53 PENICILLINS; jl7 - Home Meds: 08:53 None [Active]; jl7 - PMHx: 08:53 SHAY; Anxiety; Asthma; autoimmune disease; GERD; Hypertension; Resolved; Migraines; jl7 - PSHx: 08:53 Cornea transplant L eye; jl7 - Immunization history:: Adult Immunizations up to date. - Infectious Disease History:: Denies. - Social history:: Smoking status: Patient denies any tobacco usage or history of. Screenin:33 [facility] ED Fall Risk Assessment (Adult) History of falling in the last 3 months, iw including since admission No falls in past 3 months (0 pts) Confusion or Disorientation No (0 pts) Intoxicated or Sedated No (0 pts) Impaired Gait No (0 pts) Mobility Assist Device Used No (0 pt) Altered Elimination No (0 pt) Score/Fall Risk Level 0 - 2 = Low Risk Oriented to surroundings, Maintained a safe environment. Abuse screen: Denies threats or abuse. Denies injuries from another. Nutritional screening: No deficits noted. Tuberculosis screening: No symptoms or risk factors identified. Assessment: 09:32 General: Appears in no apparent distress. Behavior is calm, appropriate for age. Pain: iw Complains of pain in abdomen. Neuro: Level of Consciousness is awake, alert, obeys commands, Oriented to person, place, time, situation, Moves all extremities. Neuro: Reports dizziness. Cardiovascular: Patient's skin is warm and dry. Respiratory: Respiratory effort is even, unlabored, Respiratory pattern is regular, symmetrical. GI: Abdomen is flat, non-distended. GI: Reports diarrhea, nausea, vomiting. Derm: Skin is intact, is healthy with good turgor. Musculoskeletal: Range of motion: limited in all extremities. 10:23 Reassessment: Patient appears in no apparent distress at this time. Patient and/or db family updated on plan of care and expected duration. Pain level reassessed. Patient is alert, oriented x 3, equal unlabored respirations, skin warm/dry/pink. 11:30 Reassessment: Patient appears in no apparent distress at this time. Patient and/or db family updated on plan of care and expected duration. Pain level reassessed. Patient is alert, oriented x 3, equal unlabored respirations, skin warm/dry/pink. Patient states feeling better. Patient states symptoms have improved. Vital Signs: 08:50 BP 150 / 84; Pulse 71; Resp 15; Temp 97; Pulse Ox 100% ; Weight 97.52 kg; Height 5 ft. jl7 8 in. ; Pain 9/10; 09:30 BP 134 / 76; Pulse 88; Resp 16; Pulse Ox 99% on R/A; db 10:30 BP 163 / 59; Pulse 78; Resp 16; Pulse Ox 99% on R/A; db 08:50 Body Mass Index 32.69 (97.52 kg, 172.72 cm) [facility] 08:50 Pain Scale: Adult jl7 Vitals: 09:30 Cardiac Rhythm Assessment Regular Sinus rhythm. db ED Course: 08:33 Patient arrived in ED. mr 08:40 Rita Pepe MD is Attending Physician. gb1 08:53 Triage completed. jl7 08:53 Arm band placed on right wrist. jl7 09:33 Patient has correct armband on for positive identification. Provided Education on: . iw 09:34 No provider procedures requiring assistance completed. iw 09:48 Yaa Alvarez, RN is Primary Nurse. db 11:29 IV discontinued, intact, bleeding controlled, No redness/swelling at site. Pressure cm10 dressing applied. Administered Medications: 10:18 Drug: NS 0.9% IV 1000 ml IV at 1 bolus Per protocol; to be given as a bolus over 60 db minutes Route: IV; Rate: 1 bolus; Site: left antecubital; 11:30 Follow up: Response: No adverse reaction; IV Status: Completed infusion; IV Intake: cm10 1000ml 10:23 Not Given (Patient Refused): ondansetron 4 mg IVP once; over 2 minutes db Medication: 09:33 VIS not applicable for this client. iw Intake: 11:30 IV: 1000ml; Total: 1000ml. cm10 Outcome: 11:06 Discharge ordered by . gb1 11:30 Discharged to home ambulatory, cm10 11:30 Condition: good 11:30 Discharge instructions given to patient, Instructed on discharge instructions, follow up and referral plans. medication usage, Demonstrated understanding of instructions, follow-up care, medications, Prescriptions given X 1, 11:30 Patient left the ED. cm10 Signatures: Anika Han, Reg Reg mr Keshia Vernon, RN NICOL iw Jelani Luque RN RN jl7 Yaa Alvarez, RN Vandana Cesar RN RN cm10 Rita Pepe MD MD gb1
[2024-10-10 11:10] LABS: Albumin 3.2 g/dL (3.4-5.0); Albumin/Globulin Ratio 0.9 (1.1-1.8); Anion Gap 9.8 mEq/L (5.0-15.0); Bilirubin Total 0.2 mg/dL (0.2-1.0); Globulin 3.6 g/dL (2.3-3.5); Potassium 3.8 mEq/L (3.5-5.1); Protein, Total 6.8 g/dL (6.4-8.2)
[2024-10-10 11:45] VITALS: TEMP 97
[2024-10-10 11:47] VITALS: O2SAT 99
[2024-10-10 11:48] VITALS: BP 163/59
== END 2024-10-10 11:30 | disposition home or self-care (01) ==
LOC: ER 08:31
DX: A09 Infectious gastroenteritis and colitis, unspecified (principal)
CPT/HCPCS: 85025; 36415; 83690; 80053; J7030

== ENCOUNTER 2024-10-18 12:25 | Emergency (ER) | payer OTHER ==
--- OUTSIDE RECORDS SUMMARY | 2024-10-18 12:28 | XMS REPORT | Continuity of Care Document ---
Author Name Unknown Address [address] [place] [address] [address] [place] [address] [facility] [place] Address [address] 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 Smoking Status Start Date Stop Date Source Tobacco smoking consumption unknown [facility] Medications Ordered Medication Name Filled Medication [...] 4 mg tablets 2022-07 00:00: 00 Yes [id number] Take by mouth SEE-INSTRU CTIONS. follow package directions [facility] benzonatate 100 mg capsule 2022-07 00:00: 00 Yes [id number] 100mg Take 1 capsule by mouth 3 (three) times daily as needed for Cough. [facility] Vital Signs Vital Name Observation Time Observation Value Comments S ource Systolic blood pressure 2023-06-07 18:12:00 113 mm[Hg] [facility] Diastolic blood pressure 2023-06-07 18:12:00 98 mm[Hg] [facility] Heart rate 2023-06-07 18:12:00 75 /min [facility] Body temperature 2023-06-07 18:12:[address] [facility] Respiratory rate 2023-06-07 18:12:00 14 /min [facility] Body height 2023-06-07 18:12:00 177.8 cm [facility] Body weight 2023-06-07 18:12:00 108.863 kg [facility] BMI 2023-06-07 18:12:00 34.44 kg/m2 [facility] Oxygen saturation in Arterial blood by Pulse oximetry 2023-06-07 18:12:00 100 /min [facility] Procedures Procedure Date / Time Performed Performing Clinicia n Source ASSIGNMENT OF BENEFITS 2023-06-07 20:25:00 Docto r Unassigned, [place] [facility] NOTICE OF PRIVACY PRACTICES 2023-06-07 20:24:45 Doctor Unassigned, [place] [facility] XR CHEST 1 VW 2023-06-07 20:16:56 Ko Hendrix [facility] RAPID INFLUENZA A/B 2023-06-07 18:27:[address] [facility] COVID-19 (ID NOW RAPID TESTING) 2023-06-07 18:27:[address] [facility] CONSENT/REFUSAL FOR DIAGNOSIS AND TREATMENT 2023-06-07 17:57:37 Doctor Unassigned, [place] [facility] Encounters Start Date/Time End Date/Time Encounter Type Admission Type Attending Clinicians Care Facility Care Department Encounter ID Source 2023-06-07 12:17:00 2023-06-07 14:48:00 Emergency X KO HENDRIX [facility] ERT [id number] [facility] 2023-06-07 12:17:00 2023-06-07 14:48:[address] [facility] [id number] [facility]
--- NOTE | 2024-10-18 12:52 | ER ---
Nurse's Notes [facility] Name: Holden Morris Age: 39 yrs Sex: Male : 1985 Arrival Date: 10/18/2024 Time: 12:25 Bed 7 Private MD: Diagnosis: Hematuria, resolved Presentation: 10/18 12:36 Chief complaint: Patient states: left flank pain started last night , started peeing iw blood. Coronavirus screen: At this time, the client does not indicate any symptoms associated with coronavirus-19. Ebola Screen: No symptoms or risks identified at this time. Initial Sepsis Screen: Does the patient meet any 2 criteria? No. Patient's initial sepsis screen is negative. Does the patient have a suspected source of infection? No. Patient's initial sepsis screen is negative. Risk Assessment: Do you want to hurt yourself or someone else? Patient reports no desire to harm self or others. Onset of symptoms was October 17, 2024. 12:36 Method Of Arrival: Ambulatory iw 12:36 Acuity: STONE 3 iw Triage Assessment: 12:40 General: Appears in no apparent distress. Behavior is calm, cooperative. Pain: iw Complains of pain in left upper quadrant and left lower quadrant. Historical: - Allergies: 12:36 No Known Allergies; iw - PMHx: 12:36 Anxiety; SHAY; Asthma; autoimmune disease; GERD; Hypertension; Resolved; Migraines; iw - PSHx: 12:36 Cornea transplant L eye; iw - Immunization history:: Adult Immunizations not up to date. - Infectious Disease History:: Denies. - Social history:: Smoking status: Patient denies any tobacco usage or history of. Screenin:00 [facility] ED Fall Risk Assessment (Adult) History of falling in the last 3 months, ph including since admission No falls in past 3 months (0 pts) Confusion or Disorientation No (0 pts) Intoxicated or Sedated No (0 pts) Impaired Gait No (0 pts) Mobility Assist Device Used No (0 pt) Altered Elimination No (0 pt) Score/Fall Risk Level 0 - 2 = Low Risk Oriented to surroundings, Maintained a safe environment, Hourly rounding (assess needs \T\ fall precautionary measures) done. Abuse screen: Denies threats or abuse. Denies injuries from another. Nutritional screening: No deficits noted. Tuberculosis screening: No symptoms or risk factors identified. Assessment: 12:59 General: Appears in no apparent distress. comfortable, Behavior is calm, cooperative. ph Pain: Complains of pain in left lower quadrant. Neuro: Level of Consciousness is awake, alert, obeys commands, Oriented to person, place, time, situation. Cardiovascular: Capillary refill < 3 seconds in bilateral fingers Patient's skin is warm and dry. Respiratory: Airway is patent Respiratory effort is even, unlabored. :. Derm: Skin is pink, warm \T\ dry. Musculoskeletal: Circulation, motion, and sensation intact. Range of motion: intact in all extremities. Vital Signs: 12:37 BP 129 / 100; Pulse 85; Resp 16; Pulse Ox 98% ; Weight 97.52 kg; Height 5 ft. 9 in. ; iw Pain 10; 12:37 Body Mass Index 31.75 (97.52 kg, 175.26 cm) iw 12:37 Pain Scale: Adult ED Course: 12:29 Patient arrived in ED. cj3 12:30 Kailash Longo MD is Attending Physician. sp3 12:36 Triage completed. iw 12:38 Arm band placed on. iw 12:56 Mia Armendariz, RN is Primary Nurse. ap3 12:56 Marianela Gonzales RN is Primary Nurse. ph 13:00 Patient has correct armband on for positive identification. Bed in low position. Call ph light in reach. Side rails up X 1. Pulse ox on. NIBP on. Door closed. Noise minimized. 13:00 No provider procedures requiring assistance completed. Patient did not have IV access ph during this emergency room visit. Administered Medications: No medications were administered Medication: 13:00 VIS not applicable for this client. ph Outcome: 12:52 Discharge ordered by . sp3 13:01 Discharged to home ambulatory, ph 13:01 Condition: good 13:01 Discharge instructions given to patient, Instructed on discharge instructions, follow up and referral plans. Demonstrated understanding of instructions, follow-up care, 13:01 Patient left the ED. ph Signatures: Keshia Vernon RN RN iw Marianela Gonzales RN RN ph Mia Armendariz RN RN ap3 Kailash Longo MD MD sp3 Shannon Jarrett cj3 Corrections: (The following items were deleted from the chart) 12:37 12:36 Allergies: PENICILLINS; iw iw
--- NOTE | 2024-10-18 12:52 | EDPHYS ---
Physician Documentation [facility] Name: Holden Morris Age: 39 yrs Sex: Male : 1985 Arrival Date: 10/18/2024 Time: 12:25 Bed 7 Private MD: ED Physician Kailash Longo HPI: 10/18 12:49 This 39 yrs old Black Male presents to ER via Ambulatory with complaints of blood in sp3 urine. 12:50 39-year-old male with history of anxiety, prior SHAY, hypertension presents to the ED sp3 with chief complaint "blood in the urine" which has now resolved. He has no other complaints including headache, neck pain, chest pain, shortness of breath, back pain, syncope, bleeding anywhere else or any other signs or symptoms on ROS at this time. Patient has been seen multiple times in the past as this is his 100th ER visit. He had a CT scan of the abdomen pelvis few weeks ago which demonstrated no significant findings.. Historical: - Allergies: 12:36 No Known Allergies; iw - PMHx: 12:36 Anxiety; SHAY; Asthma; autoimmune disease; GERD; Hypertension; Resolved; Migraines; iw - PSHx: 12:36 Cornea transplant L eye; iw - Immunization history:: Adult Immunizations not up to date. - Infectious Disease History:: Denies. - Social history:: Smoking status: Patient denies any tobacco usage or history of. ROS: 12:51 Constitutional: Negative for fever, chills, and weight loss, Eyes: Negative for injury, sp3 pain, redness, and discharge, ENT: Negative for injury, pain, and discharge, Neck: Negative for injury, pain, and swelling, Cardiovascular: Negative for chest pain, palpitations, and edema, Respiratory: Negative for shortness of breath, cough, wheezing, and pleuritic chest pain, Abdomen/GI: Negative for abdominal pain, nausea, vomiting, diarrhea, and constipation, Back: Negative for injury and pain, MS/Extremity: Negative for injury and deformity, Skin: Negative for injury, rash, and discoloration, Neuro: Negative for headache, weakness, numbness, tingling, and seizure, Psych: Negative for depression, anxiety, suicide ideation, homicidal ideation, and hallucinations, Allergy/Immunology: Negative for hives, rash, and allergies, Endocrine: Negative for neck swelling, polydipsia, polyuria, polyphagia, and marked weight changes, 12:51 All other systems are negative, Exam: 12:51 Constitutional: This is a well developed, well nourished patient who is awake, alert, sp3 and in no acute distress. Head/Face: Normocephalic, atraumatic. Eyes: Pupils equal round and reactive to light, extra-ocular motions intact. Lids and lashes normal. Conjunctiva and sclera are non-icteric and not injected. Cornea within normal limits. Periorbital areas with no swelling, redness, or edema. ENT: Nares patent. No nasal discharge, no septal abnormalities noted. External auditory canals are clear. Oropharynx with no redness, swelling, or masses, exudates, or evidence of obstruction, uvula midline. Mucous membranes moist. Neck: Trachea midline, no thyromegaly or masses palpated, and no cervical lymphadenopathy. Supple, full range of motion without nuchal rigidity, or vertebral point tenderness. No Meningismus. Chest/axilla: Normal chest wall appearance and motion. Nontender with no deformity. No lesions are appreciated. Cardiovascular: Regular rate and rhythm with a normal S1 and S2. No gallops, murmurs, or rubs. Normal PMI, no JVD. No pulse deficits. Respiratory: Lungs have equal breath sounds bilaterally, clear to auscultation and percussion. No rales, rhonchi or wheezes noted. No increased work of breathing, no retractions or nasal flaring. Abdomen/GI: Soft, non-tender, with normal bowel sounds. No distension or tympany. No guarding or rebound. No evidence of tenderness throughout. Back: No spinal tenderness. No costovertebral tenderness. Full range of motion. Skin: Warm, dry with normal turgor. Normal color with no rashes, no lesions, and no evidence of cellulitis. MS/ Extremity: Pulses equal, no cyanosis. Neurovascular intact. Full, normal range of motion. Neuro: Awake and alert, GCS 15, oriented to person, place, time, and situation. Cranial nerves II-XII grossly intact. Motor strength 5/5 in all extremities. Sensory grossly intact. Cerebellar exam normal. Normal gait. Psych: Awake, alert, with orientation to person, place and time. Behavior, mood, and affect are within normal limits. 12:51 : Patient's urine sample demonstrates no gross visualized hematuria, cloudiness or any other abnormality., Vital Signs: 12:37 BP 129 / 100; Pulse 85; Resp 16; Pulse Ox 98% ; Weight 97.52 kg; Height 5 ft. 9 in. ; iw Pain 10/; 12:37 Body Mass Index 31.75 (97.52 kg, 175.26 cm) iw 12:37 Pain Scale: Adult MDM: 12:49 Medical Screening Exam initiated sp3 12:51 Data reviewed: vital signs, nurses notes. ED course: 39-year-old male with gross sp3 hematuria now resolved. Patient is in no acute distress, resting comfortably, laughing and talking with staff. Given no continued symptoms, we will discharge patient home. I have urged him to find a primary care physician to manage his medical care.. Administered Medications: No medications were administered Disposition Summary: 10/18/24 12:52 Discharge Ordered Notes: Location: Home sp3 Condition: Stable sp3 Diagnosis - Hematuria, resolved sp3 Followup: sp3 - With: Private Physician - When: Upon discharge from the Emergency Department - Reason: Continuance of care Discharge Instructions: - Discharge Summary Sheet sp3 - Hematuria, Adult sp3 Forms: - Work release form ph - Medication Reconciliation Form sp3 - Antibiotic Education sp3 - Prescription Opioid Use sp3 - Patient Portal Instructions sp3 - Leadership Thank You Letter sp3 Signatures: Keshia Vernon, RN RN iw Kailash Longo MD MD sp3 Corrections: (The following items were deleted from the chart) 12:37 12:36 Allergies: PENICILLINS; [facility]
[2024-10-18 13:06] VITALS: BP 129/100; O2SAT 98
== END 2024-10-18 13:01 | disposition home or self-care (01) ==
LOC: ER 12:25
DX: R31.9 Hematuria, unspecified (principal)